=== PATIENT | male | born 1960 | race Two or more races ===

== ENCOUNTER 2017-02-15 09:25 | Inpatient (IN) | payer OTHER ==
[2017-02-15 09:46] VITALS: BMI 39.4
[2017-02-15] MEDS ORDERED: SODIUM CHLORIDE 0.9% 1000 ML INFUS.BAG IV ONE ×2 (10:28→13:40)
[2017-02-15] MEDS ORDERED: ACETAMINOPHEN 325 MG TABLET (FP) PO ONE (10:28)
[2017-02-15] MEDS ORDERED: VANCOMYCIN 1,250 MG in DEXTROSE 5%-WATER - 250 ML IVPB ONE ×2 (10:31→22:00)
[2017-02-15] MEDS ORDERED: PIPERACILLIN/TAZOB 3.375 GM 3.375 GM in DEXTROSE 5%-WATER - 50 ML IVPB ONE (10:41)
--- NOTE | 2017-02-15 10:43 | PDOC ---
History of Present Illness <Desiree Elena - Last Filed: 02/15/17 15:57> - General History Source: Patient Exam Limitations: Clinical Condition - History of Present Illness Initial Comments: 02/15/17 12:00 56yoM with pmh of DM2 s/p 5th digit amputation of left foot presents with fever 10/10 pain on left foot and edema for the past [address] Becerra who told him to seek tx 2 weeks ago. Modifying Factors: improves with: movement Associated Symptoms: reports: denies symptoms <Rolando Corey - Last Filed: 02/15/17 18:12> - General Chief Complaint: Wound Infection Stated Complaint: FOOT PROBLEM/gangrene Time Seen by Provider: 02/15/17 09:54 Past History <Desiree Elena - Last Filed: 02/15/17 15:57> - Travel Traveled outside of the country in the last 30 days: No - Past Medical History Anemia: No Asthma: No Cancer: No Cardiac Disorders: Yes CVA: No COPD: No CHF: No Dementia: No Diabetes: Yes (IDDM) GI Disorders: Yes (HX.ULCER) Disorders: No HTN: Yes Hypercholesterolemia: Yes Liver Disease: No Suicide Attempt (Hx): No Seizures: No Thyroid Disease: No - Surgical History Abdominal Surgery: Yes (LEFT INGUINAL HERNIA REPAIR) Appendectomy: No Cardiac Surgery: No Cholecystectomy: No Lung Surgery: No Neurologic Surgery: No Orthopedic Surgery: Yes (right foot surgery, left 5th ray resection) - Psycho/Social/Smoking Cessation Hx Suicidal Ideation: No Smoking History: Never smoked Have you smoked in the past 12 months: No If you are a former smoker, when did you quit?: 1976 Information on smoking cessation initiated: No Hx Alcohol Use: No Drug/Substance Use Hx: No Substance Use Type: None Hx Substance Use Treatment: No <Rolando Corey - Last Filed: 02/15/17 18:12> - Past Medical History Allergies/Adverse Reactions: Allergies Allergy/AdvReac Type Severity Reaction Status Date / Time No Known Allergies Allergy Verified 02/15/17 09:29 Home Medications: Ambulatory Orders Aspirin Coated [Ecotrin -] 81 mg PO DAILY #30 tablet.ec 04/25/16 Insulin (Levemir) [Levemir Vial] 30 units SQ AM 04/28/16 Amlodipine Besylate [Norvasc -] 5 mg PO DAILY 02/15/17 Esomeprazole Magnesium 40 mg PO BID 02/15/17 Hydrochlorothiazide [Hctz -] 25 mg PO BID 02/15/17 Metformin HCl [Glucophage -] 500 mg PO BID 02/15/17 Metoprolol Succinate [Toprol Xl -] 25 mg PO DAILY 02/15/17 *Physical Exam - Vital Signs Last Vital Signs Temp Pulse Resp BP Pulse Ox 100.5 F H 100 H 18 141/66 96 02/15/17 11:28 02/15/17 11:28 02/15/17 09:28 02/15/17 11:28 02/15/17 11:28 <Desiree Elena - Last Filed: 02/15/17 15:57> - Vital Signs Last Vital Signs Temp Pulse Resp BP Pulse Ox 101.3 F H 115 H 18 138/74 97 02/15/17 09:28 02/15/17 09:28 02/15/17 09:28 02/15/17 09:28 02/15/17 09:28 - Physical Exam General Appearance: Yes: Severe Distress, Obese Respiratory/Chest: positive: Lungs Clear Cardiovascular: positive: S1, S2, Tachycardia Vascular Pulses: Dorsalis-Pedis (R): 3+, Doralis-Pedis (L): 0 (impossible to asess due to edema) Gastrointestinal/Abdominal: positive: Soft, Distended Extremity: positive: Pedal Edema (Moist foot with black 4th toe, bloody wound, ulcer on sole), Swelling, Erythema, Inflammation, Other (Foul odor coming from wound) Integumentary: positive: Dry, Warm Neurologic: positive: Alert <Rolando Corey - Last Filed: 02/15/17 18:12> Procedures - Consent Consent obtained: Verbal - Additional Procedures Additional Procedures: other (Bedside arterial doppler of left foot) <Rolando Corey - Last Filed: 02/15/17 18:12> ED Treatment Course - LABORATORY CBC & Chemistry Diagram: 02/15/17 11:05 02/15/17 11:05 - ADDITIONAL ORDERS Additional order review: Laboratory Results 02/15/17 02/15/17 02/15/17 15:17 11:18 11:05 VBG pH 7.40 POC VBG pCO2 49.4 POC VBG pO2 23.3 L Mixed VBG HCO3 30.1 H Sodium Potassium Chloride Carbon Dioxide Anion Gap BUN Creatinine Creat Clearance w eGFR Random Glucose Lactic Acid 1.9 3.0 H* Calcium Total Bilirubin AST ALT Alkaline Phosphatase Creatine Kinase Troponin I Total Protein Albumin Blood Type Antibody Screen 02/15/17 02/15/17 11:05 10:26 VBG pH POC VBG pCO2 POC VBG pO2 Mixed VBG HCO3 Sodium 134 L Potassium 3.8 D Chloride 92 L Carbon Dioxide 32 Anion Gap 10 BUN 18 D Creatinine 1.0 D Creat Clearance w eGFR > 60 Random Glucose 144 H D Lactic Acid Calcium 8.5 Total Bilirubin 0.7 D AST 25 D ALT 22 D Alkaline Phosphatase 215 H D Creatine Kinase 112 Troponin I < 0.02 Total Protein 7.4 Albumin 2.4 L Blood Type O POSITIVE Antibody Screen Negative 02/15/17 11:05 RBC 3.80 L MCV 82.9 MCHC 27.1 RDW 14.3 MPV 8.3 Neutrophils % 86.0 H D Lymphocytes % 9.0 D Monocytes % 4.0 - RADIOLOGY Radiology Studies Ordered: Category Date Time Status CHEST X-RAY PORTABLE* [RAD] Stat Radiology 02/15/17 10:26 Completed - Medications Given in the ED: ED Medications Discontinued Medications Generic Name Dose Route Start Last Admin Trade Name Freq PRN Reason Stop Dose Admin Acetaminophen 650 mg 02/15/17 10:28 02/15/17 10:45 Tylenol - PO 02/15/17 10:29 650 mg ONCE ONE Administration Vancomycin HCl 1,250 mg/ 250 mls @ 250 mls/hr 02/15/17 10:31 02/15/17 11:35 Dextrose IVPB 02/15/17 11:30 Not Given ONCE ONE Protocol Piperacillin Sod/Tazobactam 50 mls @ 100 mls/hr 02/15/17 10:41 02/15/17 11:59 Sod 3.375 gm/ Dextrose IVPB 02/15/17 11:10 100 mls/hr ONCE ONE Administration Protocol Ketorolac Tromethamine 30 mg 02/15/17 14:27 02/15/17 14:35 Toradol Injection - IVPUSH 02/15/17 14:28 30 mg ONCE ONE Administration Morphine Sulfate 8 mg 02/15/17 11:33 02/15/17 11:47 Morphine Injection - IVPUSH 02/15/17 11:34 Not Given ONCE ONE Morphine Sulfate 4 mg 02/15/17 11:41 02/15/17 11:45 Morphine Injection - IVPUSH 02/15/17 11:42 4 mg ONCE ONE Administration Sodium Chloride 1,000 ml 02/15/17 10:28 02/15/17 11:30 Normal Saline - IV 02/15/17 10:29 1,000 ml ONCE ONE Administration Sodium Chloride 1,000 ml 02/15/17 13:40 02/15/17 13:47 Normal Saline - IV 02/15/17 13:41 1,000 ml ONCE ONE Administration Vancomycin HCl 1,000 mg 02/15/17 10:47 02/15/17 12:10 Vancomycin (Pre-Docked) IVPB 02/15/17 10:48 1,000 mg ONCE ONE Administration Protocol <Desiree Elena - Last Filed: 02/15/17 15:57> - LABORATORY CBC & Chemistry Diagram: 02/15/17 11:05 02/15/17 11:05 <Rolando Corey - Last Filed: 02/15/17 18:12> Medical Decision Making - Medical Decision Making 02/15/17 12:09 56yoM with pmh of DM2 s/p 5th digit amputation of left foot presents with fever 10/10 pain on left foot and pitting edema. Evaluated for cellulitis, osteomyelitis with xray, biopsy and cultures, placed on vanc-zosyn empirically, morphine for pain Left message with field research assistant of Dr. Oh on the phone inform pt condition and presence in ED. Lactate of 3 - sepsis confirmed. Bedside Doppler confirmed presence of dorsal pedis pulse. <Rolando Corey - Last Filed: 02/15/17 18:12> *DC/Admit/Observation/Transfer - Discharge Dispostion Admit: Yes <Desiree Elena - Last Filed: 02/15/17 15:57> <Rolando Corey - Last Filed: 02/15/17 18:12> Diagnosis at time of Disposition: Foot ulcer, Cellulitis - Referrals
[2017-02-15] MEDS ORDERED: VANCOMYCIN 1 GRAM (PRE-DOCKED) 1,000 MG/250 ML BAG IVPB ONE (10:47)
[2017-02-15] MEDS ORDERED: ACETAMINOPHEN 325 MG TABLET (FP) ONE (10:50)
[2017-02-15 11:33] LABS: VENOUS BLOOD GAS HCO3 30.1 meq/L (19-25); VENOUS PH 7.4 (7.32-7.42)
[2017-02-15] MEDS ORDERED: morphine CARPU-JECT 4 MG/1 ML DISP.SYRIN IVPUSH ONE ×3 (11:33→17:14)
[2017-02-15] MEDS ORDERED: morphine CARPU-JECT 4 MG/1 ML DISP.SYRIN ONE (11:41)
[2017-02-15] MEDS ORDERED: PIPERACILLIN/TAZOB 3.375 GM 50 ML IVPB ONE (11:42)
[2017-02-15] MEDS ORDERED: VANCOMYCIN 1 GRAM (PRE-DOCKED) 250 ML IVPB ONE (11:42)
[2017-02-15 11:46] LABS: MCH 27.1 pg (25.7-33.7); MCHC 32.6 g/dl (32.0-35.9); MEAN CELL VOLUME 82.9 fl (80-96); MEAN PLT VOLUME 8.3 fl (7.5-11.1); PLATELET COUNT 444 K/MM3 (134-434); RDW 14.3 % (11.9-15.9); WHITE BLOOD COUNT 17.6 K/mm3 (4.0-10.0)
[2017-02-15 12:12] LABS: ALBUMIN 2.4 g/dl (3.4-5.0); ANION GAP 10 (8-16); BILIRUBIN,TOTAL 0.7 mg/dL (0.2-1.0); CALCIUM 8.5 mg/dL (8.5-10.1); CO2 32 mmol/L (21-32); GLUCOSE,RANDOM 144 mg/dL (74-106); SGOT/AST 25 U/L (15-37); SGPT/ALT 22 U/L (12-78); TOT PROT 7.4 g/dl (6.4-8.2)
[2017-02-15 12:14] LABS: ALK PHOS 215 U/L (45-117); TROPONIN I < 0.02 ng/ml (0.00-0.05)
--- NOTE | 2017-02-15 12:40 | PDOC ---
Attending Attestation - Resident Resident Name: LeoraRolando - ED Attending Attestation I have performed the following: I have examined & evaluated the patient, The case was reviewed & discussed with the resident, I agree w/resident's findings & plan, Exceptions are as noted - HPI HPI: 02/15/17 12:39 56 yo HTN HLD h/o chronic foot wound, here with left foot infection. is not currently on abx. has been having worsening pain for last few weeks, now febrile. no n/v pain severe. does not drainage from foot,and discoloration to left foot toe. - Physicial Exam PE: 02/15/17 12:40 awake alert lungs clear heart rrr abd obese. NT ext wwp. left foot with severe erythema to red, left lateral dorsal foot with large skin ulceration, weeping, foul oder. left small toe with gangrenous tip partial amputatuion fourth toe dusky, . large purulence from betwen toe and dorsum of footweak DP pulses. foot warm. crepitus and purpulence, foot warm. nuero alert oriented. 02/15/17 16:12 - Medical Decision Making 02/15/17 12:41 56 yo male with large foot infection r/o osteo. sepsis or bacetermia. admit for iv abx. xray sepsis sun. 02/15/17 16:15 dr atkinson wound/ vasc paged, no clare returned. MRI ordered. iv abx given. dr atkinson repaged. 02/15/17 17:06 pt seen in ED by DR Atkinson, will take to OR for I &D, and admit for further surgery as needed. Heart Score/ECG Review #1 General ECG Interpretation: Sinus Rhythm, Normal Rate (108 sinus tachycardia.), Normal Intervals, No acute ischemic changes Compared to previous ECG there are: No significant change
[2017-02-15] MEDS ORDERED: KETOROLAC TROMETHAMINE 30 MG/1 ML VIAL IVPUSH ONE (14:27)
[2017-02-15] MEDS ORDERED: KETOROLAC TROMETHAMINE 30 MG/1 ML VIAL ONE ×2 (14:28→20:03)
[2017-02-15 14:37] LABS: PLATELET ESTIMATE ADEQUATE (NORMAL)
--- NOTE | 2017-02-15 15:44 | EKG ---
Test Reason : Blood Pressure : / mmHG Vent. Rate : 108 BPM Atrial Rate : 108 BPM P-R Int : 156 ms QRS Dur : 076 ms QT Int : 328 ms P-R-T Axes : 053 061 071 degrees QTc Int : 439 ms SINUS TACHYCARDIA WHEN COMPARED WITH ECG OF 17-APR-2016 15:27, NO SIGNIFICANT CHANGE WAS FOUND Confirmed by ELIANA ORDONEZ MD ([id number]) on 02/15/2017 3:44:44 PM Referred By: Confirmed By:ELIANA ORDONEZ MD
--- NOTE | 2017-02-15 16:28 | CONSULT ---
Consult Consult Specialty:: infectious diseases Referred by:: Reason for Consultation:: gangrene of the foot - History of Present Illness Chief Complaint: leg swelling and draiange History of Present Illness: 56 yo HTN HLD h/o chronic foot wound, here with left foot infection. According tot he patient this has been going on for more than 3 weeks and because he did not ahve any insurance he did not come to the hospital patient developed the infection when he was on vacation now the wound looked.This is a fouls smelling gangrenous wound which is draining paola pus patient also has swelling of the leg going upto the knee joint patient is a known diabetic patient seen with vascular--plan to take to the operating room to drain the abscess - History Source History Provided By: Patient Limitations to Obtaining History: No Limitations - Past Medical History [employer]RE[employer]ILDINGS [employer]ORATOR: Yes: Peripheral Neuropathy Cardio/Vascular: Yes: HTN, Hyperlipdemia Renal/: Yes: Renal Inusuff Infectious Disease: Yes: Other (LLE osteo on MRI here 06/2015) Endocrine: Yes: Diabetes Mellitus (on Victoza) - Past Surgical History Past Surgical History: Yes: Hernia Repair (left inguinal) - Alcohol/Substance Use Hx Alcohol Use: No History of Substance Use: reports: None - Smoking History Smoking history: Never smoked Have you smoked in the past 12 months: No If you are a former smoker, when did you quit?: 1976 - Social History ADL: Independent History of Recent Travel: No Home Medications - Allergies Allergies/Adverse Reactions: Allergies Allergy/AdvReac Type Severity Reaction Status Date / Time No Known Allergies Allergy Verified 02/15/17 09:29 - Home Medications Home Medications: Ambulatory Orders Aspirin Coated [Ecotrin -] 81 mg PO DAILY #30 tablet.ec 04/25/16 Insulin (Levemir) [Levemir Vial] 30 units SQ AM 04/28/16 Amlodipine Besylate [Norvasc -] 5 mg PO DAILY 02/15/17 Esomeprazole Magnesium 40 mg PO BID 02/15/17 Hydrochlorothiazide [Hctz -] 25 mg PO BID 02/15/17 Metformin HCl [Glucophage -] 500 mg PO BID 02/15/17 Metoprolol Succinate [Toprol Xl -] 25 mg PO DAILY 02/15/17 Review of Systems - Review of Systems Constitutional: reports: No Symptoms Eyes: reports: No Symptoms HENT: reports: No Symptoms Neck: reports: No Symptoms Cardiovascular: reports: No Symptoms Respiratory: reports: No Symptoms Gastrointestinal: reports: No Symptoms Genitourinary: reports: No Symptoms Musculoskeletal: reports: Extremity Pain, Muscle Pain, Other Integumentary: reports: Blister, Erythema, Wound (necrotic) Neurological: reports: No Symptoms Endocrine: reports: No Symptoms Hematology/Lymphatic: reports: No Symptoms Psychiatric: reports: No Symptoms Physical Exam Vital Signs: Vital Signs Temperature 100.5 F H 02/15/17 11:28 Pulse Rate 100 H 02/15/17 11:28 Respiratory Rate 18 02/15/17 09:28 Blood Pressure 141/66 02/15/17 11:28 O2 Sat by Pulse Oximetry (%) 96 02/15/17 11:28 Constitutional: Yes: Calm, Moderate Distress, Obese Eyes: Yes: Conjunctiva Clear HENT: Yes: Atraumatic Neck: Yes: Supple Cardiovascular: Yes: Regular Rate and Rhythm Respiratory: Yes: Regular, CTA Bilaterally Gastrointestinal: Yes: Normal Bowel Sounds, Soft Musculoskeletal: Yes: Other Extremities: Yes: Other Integumentary: Yes: Erythema, Other (blisters) Wound/Incision: Yes: Other (left foot with severe erythema to red, left lateral dorsal foot with large skin ulceration, weeping, foul oder. left small toe with gangrenous tip partial amputatuion fourth toe dusky, . large purulence from betwen toe and dorsum of footweak DP pulses. foot warm. crepitus and purpulence, foot warm.) Neurological: Yes: Alert, Oriented Psychiatric: Yes: Alert, Oriented Imaging - Results Chest X-ray: Report Reviewed, Image Reviewed Assessment/Plan after looking at the wound and the condition of the leg there is worry about gas gangrene though there is open tract patient will be going to the or also i ahve no doubt that the patient has osteo' since patient is going to the or on urgent basis we will do imaging studies later on i am going to start patient on abx osteo of the left foot abscess left foot cellulittis left foot gangrene left 5th toe plan will stat on clinda zosyn and vanco await for cx report rest as per surgery a
[2017-02-15] MEDS ORDERED: CLINDAMYCIN 600MG PREMIX IVPB 50 ML IVPB SCH (16:30)
[2017-02-15] MEDS ORDERED: morphine CARPU-JECT 2 MG/1 ML DISP.SYRIN ONE (16:31)
[2017-02-15 16:33] LABS: URINE APPEARANCE CLEAR; URINE BILIRUBIN NEGATIVE (NEGATIVE); URINE BLOOD 1+ (NEGATIVE); URINE COLOR YELLOW; URINE GLUCOSE (UA) 3+ (NEGATIVE); URINE KETONE NEGATIVE (NEGATIVE); URINE LEUK ESTERASE NEGATIVE (NEGATIVE); URINE NITRITE NEGATIVE (NEGATIVE); URINE PROTEIN 1+ (NEGATIVE); URINE UROBILINOGEN 2.0 E.U/dl E.U./dl (0.2-1.0)
[2017-02-15 16:35] LABS: URINE RBC 17 /hpf (0-3); URINE WBC 6 /hpf (3-5)
[2017-02-15] MEDS ORDERED: CLINDAMYCIN 600MG PREMIX IVPB 50 ML IVPB ONE (16:49)
--- NOTE | 2017-02-15 17:05 | PN ---
Progress Note (short form) - Note Progress Note: Vascular Surgery Pt seen and examined. Pt recently on vacation, and now with infection in left foot. Will need drainage of foot today WBC 17 Arsh López DO
[2017-02-15] MEDS ORDERED: PIPERACILLIN/TAZOB 4.5 GM 4.5 GM in DEXTROSE 5%-WATER - 100 ML IVPB SCH (18:00)
[2017-02-15] MEDS ORDERED: PROPOFOL 20 ML ONE (19:23)
[2017-02-15] MEDS ORDERED: MIDAZOLAM HCL 2 MG/2 ML SINGLE DOSE VIAL ONE (19:24)
[2017-02-15] MEDS ORDERED: LIDOCAINE HCL/PF 2% SDV 5ML VIAL ONE (19:32)
[2017-02-15] MEDS ORDERED: DEXAMETHASONE SOD PHOSPHATE 4 MG/1 ML VIAL ONE (19:42)
--- NOTE | 2017-02-15 20:29 | OP ---
Operative Note - Note: Operative Date: 02/15/17 Pre-Operative Diagnosis: Infected Left foot Operation: Inscion & Drainge with debridement of necrotic soft tissue and bone Findings: Necrotic soft tissue and bone with foul dishwater drainage with mal odor Post-Operative Diagnosis: Same as Pre-op Surgeon: Gal Chew Anesthesiologist/HEATER OPERATOR HELPER: Spenser Farris Anesthesia: General Specimens Removed: Necrotic bone and soft tissue Estimated Blood Loss (mls): 50 Operative Report Dictated: Yes
--- NOTE | 2017-02-15 20:32 | PN ---
Progress Note (short form) - Note Progress Note: Pre OP Patietn went on vacation stated his foot got infected but due to no insurance he waited 3 weeks before seeking treatment A/A/O x 3 in NAD Left foot: Swollen mal odorous with sub q emphysema, + pain with guarded ROM Vital Signs Period Temp Pulse Resp BP Sys/Mclaughlin Pulse Ox Last 24 Hr 100.5 F-101.6 F 100-117 18-22 138-157/63-91 96-99 Abnormal Lab Results 02/15/17 02/15/17 02/15/17 11:05 11:05 11:05 WBC 17.6 H D RBC 3.80 L Hgb 10.3 L Hct 31.5 L Plt Count 444 H D Neutrophils % 86.0 H D POC VBG pO2 Mixed VBG HCO3 Sodium 134 L Chloride 92 L Random Glucose 144 H D Lactic Acid 3.0 H* Alkaline Phosphatase 215 H D Albumin 2.4 L Urine Protein Urine Glucose (UA) Urine Blood 02/15/17 02/15/17 11:18 16:00 WBC RBC Hgb Hct Plt Count Neutrophils % POC VBG pO2 23.3 L Mixed VBG HCO3 30.1 H Sodium Chloride Random Glucose Lactic Acid Alkaline Phosphatase Albumin Urine Protein 1+ H Urine Glucose (UA) 3+ H Urine Blood 1+ H Current Medications Generic Name Dose Route Start Last Admin Trade Name Charanjit PRN Reason Stop Dose Admin Clindamycin Phosphate 50 mls @ 100 mls/hr 02/15/17 16:30 02/15/17 16:54 Cleocin 600 Mg Premix Ivpb - IVPB 100 mls/hr Q6H-IV [facility] Administration Vancomycin HCl 1,250 mg/ 250 mls @ 166.667 mls/hr 02/15/17 22:00 Dextrose IVPB BID [facility] Protocol Piperacillin Sod/Tazobactam 100 mls @ 200 mls/hr 02/15/17 18:00 02/15/17 18:18 Sod 4.5 gm/ Dextrose IVPB 200 mls/hr Q8H-IV [facility] Administration Protocol Patietn to the OR for I&D and to open foot Risks explained to the patietn including but not limited loss of toes foot and leg after all questions answered to his satisfaction consent obtained
[2017-02-15] MEDS ORDERED: ACETAMINOPHEN 1000 MG/100 ML VIAL (NON FORMULARY) IVPB ONE (20:33)
[2017-02-15] MEDS ORDERED: ACETAMINOPHEN INJECTION 100 ML IVPB ONE (20:33)
--- NOTE | 2017-02-15 20:34 | PN ---
Progress Note (short form) - Note Progress Note: Patient underwent extensive debridement of soft tissue and bone secondary to infection and necrosis Transferred to PACU with VSS in NAD Deep tisssue and Bone Cultures taken and sent to Microbilogy Remainig specimens sent to Pathology Will follow Will change dressing in 48 hours, maintain until then
[2017-02-15] MEDS ORDERED: VANCOMYCIN 1,250 MG in DEXTROSE 5%-WATER - 250 ML IVPB SCH (22:00)
[2017-02-15] MEDS: CLINDAMYCIN 600MG PREMIX IVPB 50 ML IVPB SCH (22:26)
[2017-02-16] MEDS: VANCOMYCIN 1,250 MG in DEXTROSE 5%-WATER - 250 ML IVPB SCH ×3 (00:32→21:46)
[2017-02-16] MEDS ORDERED: PIPERACILLIN/TAZOB 4.5 GM 100 ML IVPB ONE (02:00)
[2017-02-16] MEDS ORDERED: PIPERACILLIN/TAZOB 4.5 GM 100 ML IVPB SCH (02:00)
[2017-02-16] MEDS: PIPERACILLIN/TAZOB 4.5 GM 100 ML IVPB SCH ×3 (02:36→18:03)
[2017-02-16] MEDS: CLINDAMYCIN 600MG PREMIX IVPB 50 ML IVPB SCH ×2 (02:36→08:57)
[2017-02-16] MEDS: INSULIN DETEMIR 100 UNITS/ML MDV SQ SCH (06:40)
[2017-02-16] MEDS: metFORMIN HCL 500 MG TABLET (FP) PO SCH ×2 (06:40→17:55)
[2017-02-16] MEDS: INSULIN SLIDING SCALE (NOVOLOG) 1 VIAL SQ SCH ×4 (06:43→21:45)
--- NOTE | 2017-02-16 06:47 | OP ---
DATE OF OPERATION: 02/15/2017 SURGEON: Scarlet Richter DPM PREOPERATIVE DIAGNOSIS: Infected left foot with possible necrotizing fasciitis. POSTOPERATIVE DIAGNOSIS: Infected left foot with possible necrotizing fasciitis. NAME OF OPERATION: Incision and drainage with debridement of infected and necrotic bone and soft tissue, all deep. ANESTHESIA: General anesthesia via LMA. FINDINGS: Necrotic soft tissue and bone with foul-smelling dishwater-brown discharge. WOUND CLASSIFICATION: Dirty. ESTIMATED BLOOD LOSS: 50 mL. SPECIMENS REMOVED: Necrotic bone and soft tissue. DRAINS: There were no drains. MATERIALS: None. COMPLICATIONS: None. INDICATIONS FOR THE PROCEDURE: The patient is a pleasant 56-year-old male who presented to [facility] this evening complaining of pain, swelling, and malodor to his left foot. He states that this has been going on for 3 weeks and getting progressively worse. He just sought treatment recently because he had no insurance prior. Patient states he has been febrile over the past several days. The patient was explained that he needed to have an incision and drainage and debridement this evening. Risks, including, but not limited to, loss of toe, loss of foot, and loss of leg, were explained to the patient. After he demonstrated verbal understanding, consent was obtained. The surgical site was then confirmed with the patient and marked with my initials. DESCRIPTION OF THE PROCEDURE: Patient was brought to the operating room and placed on the operating room table in the supine position in a good anatomic alignment with all bony prominences padded well. Timeout was called, confirming the identity of the patient, the nature of the procedure, and the extremity to be operated on. Once confirmed, an LMA was passed by the anesthesiologist and the patient was anesthetized. The left foot was then prepped and draped in the usual sterile manner. Attention was then directed to the lateral aspect of the left foot where starting from the dorsolateral aspect continuing through the interspace all the way down to the plantar lateral aspect an incision was made. The incision was deepened via sharp and blunt dissection. At this time, it should be noted that there was necrotic soft tissue and bone with a very foul-smelling odor and brown sewerage-water discharge. Utilizing sharp and blunt dissection, all nonviable tissue that was visible was excised in toto, including the bone. Deep tissue cultures as well as bone cultures were sent to Microbiology for both culture and sensitivity. The remaining specimens were sent to Pathology for both gross and microscopic examination. The surgical site was then flushed with 3000 mL of a 1/3 mixture of Betadine, peroxide, and normal saline. The area was then packed with the same solution. The area was then dressed with all sterile gauze, ABD pads, Kerlix, and Kali. Patient was transported to the postanesthesia care unit with vital signs stable and in no apparent distress. Prior to applying the bandage, the instrument count as well as the sponge count was noted to be within normal limits and correct. Hemostasis was under control via direct pressure. Patient will be admitted into the hospital for IV antibiotics and ID consult. Vascular consult was already performed and appreciated. SCARLET RICHTER DPM [id number]
[2017-02-16 07:37] LABS: MCH 26.8 pg (25.7-33.7); MCHC 32.4 g/dl (32.0-35.9); MEAN CELL VOLUME 82.8 fl (80-96); MEAN PLT VOLUME 8.6 fl (7.5-11.1); PLATELET COUNT 405 K/MM3 (134-434); RDW 14.3 % (11.9-15.9)
[2017-02-16 08:22] LABS: ALBUMIN 1.6 g/dl (3.4-5.0); ANION GAP 13 (8-16); CALCIUM 7.6 mg/dL (8.5-10.1); CO2 28 mmol/L (21-32); GLUCOSE,RANDOM 286 mg/dL (74-106); SGOT/AST 19 U/L (15-37); SGPT/ALT 15 U/L (12-78)
[2017-02-16 08:26] LABS: ALK PHOS 151 U/L (45-117); BILIRUBIN,TOTAL 0.7 mg/dL (0.2-1.0); TOT PROT 5.4 g/dl (6.4-8.2)
[2017-02-16] MEDS: oxyCODONE HCL 5 MG TABLET PO PRN ×2 (08:56→21:46)
[2017-02-16] MEDS: ACETAMINOPHEN 325 MG TABLET (FP) PO PRN ×2 (08:57→21:47)
[2017-02-16] MEDS: HEPARIN NA (PORCINE) 5,000 UNITS/ML 1ML VIAL SQ SCH ×2 (09:10→21:45)
[2017-02-16] MEDS: ASPIRIN COATED 81 MG TABLET.EC PO SCH (09:10)
[2017-02-16] MEDS: HYDROCHLOROTHIAZIDE 25 MG TABLET (FP) PO SCH ×2 (09:11→21:45)
[2017-02-16] MEDS: METOPROLOL SUCCINATE 25 MG TAB.SR.24H (FP) PO SCH (09:11)
[2017-02-16] MEDS: amLODIPine BESYLATE 5 MG TABLET (FP) PO SCH (09:11)
--- NOTE | 2017-02-16 11:51 | PN ---
Progress Note, Physician History of Present Illness: post op from inscion and drainage of the foot operative note noted patient has no complaints this morning wound has dressing still foul smell present - Current Medication List Current Medications: Active Medications Acetaminophen (Tylenol -) 325 mg PO Q6H PRN PRN Reason: PAIN Last Admin: 02/16/17 08:57 Dose: 325 mg Amlodipine Besylate (Norvasc -) 5 mg PO DAILY [facility] Last Admin: 02/16/17 09:11 Dose: 5 mg Aspirin (Ecotrin -) 81 mg PO DAILY [facility] Last Admin: 02/16/17 09:10 Dose: 81 mg Heparin Sodium (Porcine) (Heparin -) 5,000 unit SQ BID [facility] Last Admin: 02/16/17 09:10 Dose: 5,000 unit Hydrochlorothiazide (Hctz -) 25 mg PO BID [facility] Last Admin: 02/16/17 09:11 Dose: 25 mg Clindamycin Phosphate (Cleocin 600 Mg Premix Ivpb -) 50 mls @ 100 mls/hr IVPB Q6H-IV [facility] Last Admin: 02/16/17 08:57 Dose: 100 mls/hr Vancomycin HCl 1,250 mg/ (Dextrose) 250 mls @ 166.667 mls/hr IVPB BID [facility] PRN Reason: Protocol Last Admin: 02/16/17 00:32 Dose: 166.667 mls/hr Piperacillin Sod/Tazobactam Sod (Zosyn 4.5gm Ivpb (Pre-Docked)) 100 mls @ 200 mls/hr IVPB Q8H-IV [facility] PRN Reason: Protocol Last Admin: 02/16/17 09:11 Dose: 200 mls/hr Insulin Aspart (Novolog Vial Sliding Scale -) 1 vial SQ ACHS [facility] PRN Reason: Protocol Last Admin: 02/16/17 06:43 Dose: 8 units Insulin Detemir (Levemir Vial) 30 units SQ AM [facility] Last Admin: 02/16/17 06:40 Dose: 30 units Metformin HCl (Glucophage -) 500 mg PO BIDI [facility] Last Admin: 02/16/17 06:40 Dose: 500 mg Metoprolol Succinate (Toprol Xl -) 25 mg PO DAILY [facility] Last Admin: 02/16/17 09:11 Dose: 25 mg Oxycodone HCl (Roxicodone -) 5 mg PO Q6H PRN PRN Reason: PAIN Last Admin: 02/16/17 08:56 Dose: 5 mg - Objective Vital Signs: Vital Signs Temperature 98.5 F 02/16/17 10:00 Pulse Rate 92 H 02/16/17 10:00 Respiratory Rate 18 02/16/17 10:00 Blood Pressure 114/66 02/16/17 10:00 O2 Sat by Pulse Oximetry (%) 96 02/15/17 22:00 Constitutional: Yes: No Distress, Calm, Obese Cardiovascular: Yes: Regular Rate and Rhythm Respiratory: Yes: Regular, CTA Bilaterally Gastrointestinal: Yes: Normal Bowel Sounds, Soft Musculoskeletal: Yes: Other Extremities: Yes: Other Wound/Incision: Yes: Dressing Dry and Intact, Other (foul smell) Neurological: Yes: Alert, Oriented Psychiatric: Yes: Alert, Oriented Labs: CBC, BMP 02/16/17 06:35 02/16/17 06:30 Assessment/Plan after looking at the wound and the condition of the leg there is worry about gas gangrene though there is open tract patient will be going to the or also i ahve no doubt that the patient has osteo' since patient is going to the or on urgent basis we will do imaging studies later on i am going to start patient on abx osteo of the left foot abscess left foot cellulittis left foot gangrene left 5th toe plan continue abx pham top clinda await for cx report rest as per surgery a
[2017-02-16 14:15] LABS: PLATELET ESTIMATE ADEQUATE (NORMAL)
--- NOTE | 2017-02-16 21:16 | PN ---
Progress Note, Physician History of Present Illness: This was entered in error See H&P - Current Medication List Current Medications: Active Medications Acetaminophen (Tylenol -) 325 mg PO Q6H PRN PRN Reason: PAIN Last Admin: 02/16/17 08:57 Dose: 325 mg Amlodipine Besylate (Norvasc -) 5 mg PO DAILY [facility] Last Admin: 02/16/17 09:11 Dose: 5 mg Aspirin (Ecotrin -) 81 mg PO DAILY [facility] Last Admin: 02/16/17 09:10 Dose: 81 mg Heparin Sodium (Porcine) (Heparin -) 5,000 unit SQ BID [facility] Last Admin: 02/16/17 09:10 Dose: 5,000 unit Hydrochlorothiazide (Hctz -) 25 mg PO BID [facility] Last Admin: 02/16/17 09:11 Dose: 25 mg Vancomycin HCl 1,250 mg/ (Dextrose) 250 mls @ 166.667 mls/hr IVPB BID [facility] PRN Reason: Protocol Last Admin: 02/16/17 13:04 Dose: 166.667 mls/hr Piperacillin Sod/Tazobactam Sod (Zosyn 4.5gm Ivpb (Pre-Docked)) 100 mls @ 200 mls/hr IVPB Q8H-IV [facility] PRN Reason: Protocol Last Admin: 02/16/17 18:03 Dose: 200 mls/hr Insulin Aspart (Novolog Vial Sliding Scale -) 1 vial SQ ACHS [facility] PRN Reason: Protocol Last Admin: 02/16/17 17:55 Dose: 6 units Insulin Detemir (Levemir Vial) 30 units SQ AM [facility] Last Admin: 02/16/17 06:40 Dose: 30 units Metformin HCl (Glucophage -) 500 mg PO BIDI [facility] Last Admin: 02/16/17 17:55 Dose: 500 mg Metoprolol Succinate (Toprol Xl -) 25 mg PO DAILY [facility] Last Admin: 02/16/17 09:11 Dose: 25 mg Oxycodone HCl (Roxicodone -) 5 mg PO Q6H PRN PRN Reason: PAIN Last Admin: 02/16/17 08:56 Dose: 5 mg - Objective Vital Signs: Vital Signs Temperature 98.8 F 02/16/17 18:00 Pulse Rate 93 H 02/16/17 18:00 Respiratory Rate 16 02/16/17 18:00 Blood Pressure 117/62 02/16/17 18:00 O2 Sat by Pulse Oximetry (%) 98 02/16/17 20:30 Labs: CBC, BMP 02/16/17 06:35 02/16/17 06:30
[2017-02-17] MEDS: PIPERACILLIN/TAZOB 4.5 GM 100 ML IVPB SCH ×3 (01:07→17:38)
[2017-02-17] MEDS: metFORMIN HCL 500 MG TABLET (FP) PO SCH ×2 (06:20→17:31)
[2017-02-17] MEDS: INSULIN DETEMIR 100 UNITS/ML MDV SQ SCH (06:20)
[2017-02-17] MEDS: INSULIN SLIDING SCALE (NOVOLOG) 1 VIAL SQ SCH ×4 (06:21→22:12)
[2017-02-17] MEDS ORDERED: PT OWN MED DRAWER 7, Y5N ONE (09:26)
[2017-02-17] MEDS: VANCOMYCIN 1,250 MG in DEXTROSE 5%-WATER - 250 ML IVPB SCH ×2 (10:08→22:13)
[2017-02-17] MEDS: HYDROCHLOROTHIAZIDE 25 MG TABLET (FP) PO SCH ×2 (10:11→22:11)
[2017-02-17] MEDS: oxyCODONE HCL 5 MG TABLET PO PRN ×3 (10:12→23:24)
[2017-02-17] MEDS: ASPIRIN COATED 81 MG TABLET.EC PO SCH (10:12)
[2017-02-17] MEDS: METOPROLOL SUCCINATE 25 MG TAB.SR.24H (FP) PO SCH (10:12)
[2017-02-17] MEDS: HEPARIN NA (PORCINE) 5,000 UNITS/ML 1ML VIAL SQ SCH ×2 (10:12→22:11)
[2017-02-17] MEDS: amLODIPine BESYLATE 5 MG TABLET (FP) PO SCH (10:12)
[2017-02-17] MEDS: ACETAMINOPHEN 325 MG TABLET (FP) PO PRN ×3 (10:13→23:27)
--- NOTE | 2017-02-17 16:09 | HP ---
Admitting History and Physical - Admission Chief Complaint: Pt was seen and examined on 02/16/17 however H&P was not saved correctly History of Present Illness: Pt is 56 y/o male w/ PMH significant for HTN, HLD, and diabetes who has a h/o chronic foot wound. Pt also has had partial amputation lt 4th toe.According to the patient this has been going on for more than 3 weeks and because he did not have any insurance he did not come to the hospital. The patient developed the infection when he was on vacation. There is a foul smelling gangrenous wound which is draining paola pus and also has swelling of the leg going up to the knee. Pt denies any fever/chills. In the ER pt found to have WBC of 17,000 and xray of lt foot showed soft tissue air. History Source: Patient, Medical Record - Past Medical History DISMANTLER: Yes: Peripheral Neuropathy Cardiovascular: Yes: HTN, Hyperlipdemia Renal/: Yes: Renal Inusuff Infectious Disease: Yes: Other (LLE osteo on MRI here 06/2015) Endocrine: Yes: Diabetes Mellitus (on Victoza) - Past Surgical History Past Surgical History: Yes: Hernia Repair (left inguinal) - Smoking History Smoking history: Never smoked Have you smoked in the past 12 months: No If you are a former smoker, when did you quit?: 1976 - Alcohol/Substance Use Hx Alcohol Use: No History of Substance Use: reports: None - Social History ADL: Independent History of Recent Travel: No Home Medications - Allergies Allergies/Adverse Reactions: Allergies Allergy/AdvReac Type Severity Reaction Status Date / Time No Known Allergies Allergy Verified 02/15/17 09:29 - Home Medications Home Medications: Ambulatory Orders Aspirin Coated [Ecotrin -] 81 mg PO DAILY #30 tablet.ec 04/25/16 Insulin (Levemir) [Levemir Vial] 30 units SQ AM 04/28/16 Amlodipine Besylate [Norvasc -] 5 mg PO DAILY 02/15/17 Esomeprazole Magnesium 40 mg PO BID 02/15/17 Hydrochlorothiazide [Hctz -] 25 mg PO BID 02/15/17 Metformin HCl [Glucophage -] 500 mg PO BID 02/15/17 Metoprolol Succinate [Toprol Xl -] 25 mg PO DAILY 02/15/17 Family Disease History - Family Disease History Family History: Unremarkable Review of Systems - Review of Systems Constitutional: reports: No Symptoms HENT: reports: No Symptoms Neck: reports: No Symptoms Cardiovascular: reports: No Symptoms Respiratory: reports: No Symptoms Gastrointestinal: reports: No Symptoms Musculoskeletal: reports: Other ((+) pain lt foot) Physical Examination Vital Signs: Vital Signs Temperature 99.5 F 02/17/17 14:44 Pulse Rate 97 H 02/17/17 14:44 Respiratory Rate 20 02/17/17 14:44 Blood Pressure 119/59 02/17/17 14:44 O2 Sat by Pulse Oximetry (%) 98 02/17/17 09:00 Constitutional: Yes: Well Nourished HENT: Yes: WNL Neck: Yes: WNL, Supple Cardiovascular: Yes: WNL, Regular Rate and Rhythm Respiratory: Yes: WNL, Regular, CTA Bilaterally Gastrointestinal: Yes: WNL, Normal Bowel Sounds, Soft Extremities: Yes: Other (Lt foot in dressing s/p I&D lt foot) Edema: No Neurological: Yes: WNL, Alert, Oriented ...Motor Strength: WNL Labs: CBC, BMP 02/16/17 06:35 02/16/17 06:30 Problem List - Problems (1) Foot ulcer Assessment/Plan: cellulitis/abscess/osteo/fascitis S/P I&D lt foot Check MRI foot Cont IV antibxs Follow cultures Code(s): L97.509 - NON-PRESSURE CHRONIC ULCER OTH PRT UNSP FOOT W UNSP SEVERITY (2) Diabetes Code(s): E11.9 - TYPE 2 DIABETES MELLITUS WITHOUT COMPLICATIONS Qualifiers: Diabetes mellitus type: other specified (including LASHAY) Diabetes mellitus complication status: with hyperglycemia Diabetes mellitus chcf insulin use: unspecified termination clerk insulin use status Qualified Code (s): E13.65 - Other specified diabetes mellitus with hyperglycemia (3) HTN (hypertension) Code(s): I10 - ESSENTIAL (PRIMARY) HYPERTENSION (4) Morbid obesity Code(s): E66.01 - MORBID (SEVERE) OBESITY DUE TO EXCESS CALORIES
--- NOTE | 2017-02-17 16:09 | PN ---
Progress Note, Physician History of Present Illness: Pt having pain in lt foot - Current Medication List Current Medications: Active Medications Acetaminophen (Tylenol -) 325 mg PO Q6H PRN PRN Reason: PAIN Last Admin: 02/17/17 10:13 Dose: 325 mg Amlodipine Besylate (Norvasc -) 5 mg PO DAILY [facility] Last Admin: 02/17/17 10:12 Dose: 5 mg Aspirin (Ecotrin -) 81 mg PO DAILY [facility] Last Admin: 02/17/17 10:12 Dose: 81 mg Heparin Sodium (Porcine) (Heparin -) 5,000 unit SQ BID [facility] Last Admin: 02/17/17 10:12 Dose: 5,000 unit Hydrochlorothiazide (Hctz -) 25 mg PO BID [facility] Last Admin: 02/17/17 10:11 Dose: 25 mg Vancomycin HCl 1,250 mg/ (Dextrose) 250 mls @ 166.667 mls/hr IVPB BID [facility] PRN Reason: Protocol Last Admin: 02/17/17 10:08 Dose: 166.667 mls/hr Piperacillin Sod/Tazobactam Sod (Zosyn 4.5gm Ivpb (Pre-Docked)) 100 mls @ 200 mls/hr IVPB Q8H-IV [facility] PRN Reason: Protocol Last Admin: 02/17/17 11:49 Dose: 200 mls/hr Insulin Aspart (Novolog Vial Sliding Scale -) 1 vial SQ ACHS [facility] PRN Reason: Protocol Last Admin: 02/17/17 11:51 Dose: 6 units Insulin Detemir (Levemir Vial) 30 units SQ AM [facility] Last Admin: 02/17/17 06:20 Dose: 30 units Metformin HCl (Glucophage -) 500 mg PO BIDI [facility] Last Admin: 02/17/17 06:20 Dose: 500 mg Metoprolol Succinate (Toprol Xl -) 25 mg PO DAILY [facility] Last Admin: 02/17/17 10:12 Dose: 25 mg Oxycodone HCl (Roxicodone -) 5 mg PO Q6H PRN PRN Reason: PAIN Last Admin: 02/17/17 10:12 Dose: 5 mg - Objective Vital Signs: Vital Signs Temperature 99.5 F 02/17/17 14:44 Pulse Rate 97 H 02/17/17 14:44 Respiratory Rate 20 02/17/17 14:44 Blood Pressure 119/59 02/17/17 14:44 O2 Sat by Pulse Oximetry (%) 98 02/17/17 09:00 Constitutional: Yes: Well Nourished HENT: Yes: WNL Neck: Yes: WNL, Supple Cardiovascular: Yes: WNL, Regular Rate and Rhythm Respiratory: Yes: WNL, Regular, CTA Bilaterally Gastrointestinal: Yes: WNL, Normal Bowel Sounds, Soft, Abdomen, Obese Extremities: Yes: Other ((+) lt foot in dressxing w/ surrounding erythema) Labs: CBC, BMP 02/16/17 06:35 02/16/17 06:30 Problem List - Problems (1) Foot ulcer Assessment/Plan: cellulitis/abscess/osteo/fascitis/gangrene S/P I&D lt foot MRI foot showes Cont IV zosyn/vanco Follow cultures Code(s): L97.509 - NON-PRESSURE CHRONIC ULCER OTH PRT UNSP FOOT W UNSP SEVERITY (2) Diabetes Assessment/Plan: Glucose uncontrolled Cont metformin/levemir/sliding scale w/ coverage Endo consult Check HgA1c Code(s): E11.9 - TYPE 2 DIABETES MELLITUS WITHOUT COMPLICATIONS Qualifiers: Diabetes mellitus type: other specified (including LASHAY) Diabetes mellitus complication status: with hyperglycemia Diabetes mellitus terminal make up operator insulin use: unspecified fci insulin use status Qualified Code (s): E13.65 - Other specified diabetes mellitus with hyperglycemia (3) HTN (hypertension) Assessment/Plan: BP stable Cont norvasc/toprol/asa/hctz Code(s): I10 - ESSENTIAL (PRIMARY) HYPERTENSION (4) Morbid obesity Code(s): E66.01 - MORBID (SEVERE) OBESITY DUE TO EXCESS CALORIES
[2017-02-17] MEDS ORDERED: INSULIN (NOVOLOG) ASPART 100 UNITS/ML 10ML VIAL ONE (21:33)
[2017-02-17] MEDS ORDERED: INSULIN DETEMIR 100 UNITS/ML MDV SQ ONE (21:33)
[2017-02-18] MEDS: PIPERACILLIN/TAZOB 4.5 GM 100 ML IVPB SCH ×3 (01:20→17:05)
[2017-02-18] MEDS: INSULIN DETEMIR 100 UNITS/ML MDV SQ SCH (06:08)
[2017-02-18] MEDS: metFORMIN HCL 500 MG TABLET (FP) PO SCH ×2 (06:08→17:11)
[2017-02-18] MEDS: INSULIN SLIDING SCALE (NOVOLOG) 1 VIAL SQ SCH ×4 (06:11→22:22)
[2017-02-18] MEDS ORDERED: INSULIN DETEMIR 100 UNITS/ML MDV SQ ONE (06:54)
[2017-02-18 08:23] LABS: BASOPHIL 0.7 % (0-2.0); EOSINOPHIL 0.2 % (0-4.5); MCH 27.2 pg (25.7-33.7); MCHC 32.8 g/dl (32.0-35.9); MEAN CELL VOLUME 82.9 fl (80-96); MEAN PLT VOLUME 8.2 fl (7.5-11.1); NEUTROPHILS 83.1 % (42.8-82.8); PLATELET COUNT 543 K/MM3 (134-434); RDW 14.6 % (11.9-15.9); WHITE BLOOD COUNT 18.6 K/mm3 (4.0-10.0)
[2017-02-18 08:39] LABS: ALBUMIN 1.7 g/dl (3.4-5.0); ANION GAP 7 (8-16); CALCIUM 7.8 mg/dL (8.5-10.1); CO2 31 mmol/L (21-32); GLUCOSE,RANDOM 159 mg/dL (74-106)
[2017-02-18 08:43] LABS: ALK PHOS 131 U/L (45-117); BILIRUBIN,TOTAL 0.3 mg/dL (0.2-1.0); CREATININE 0.8 mg/dL (0.7-1.3); SGOT/AST 17 U/L (15-37); SGPT/ALT 15 U/L (12-78); TOT PROT 6.1 g/dl (6.4-8.2)
[2017-02-18] MEDS: oxyCODONE HCL 5 MG TABLET PO PRN ×3 (09:40→23:35)
[2017-02-18] MEDS: ACETAMINOPHEN 325 MG TABLET (FP) PO PRN ×3 (09:40→23:33)
[2017-02-18] MEDS: HYDROCHLOROTHIAZIDE 25 MG TABLET (FP) PO SCH ×2 (09:52→22:23)
[2017-02-18] MEDS: METOPROLOL SUCCINATE 25 MG TAB.SR.24H (FP) PO SCH (09:52)
[2017-02-18] MEDS: amLODIPine BESYLATE 5 MG TABLET (FP) PO SCH (09:52)
[2017-02-18] MEDS: VANCOMYCIN 1,250 MG in DEXTROSE 5%-WATER - 250 ML IVPB SCH (09:53)
[2017-02-18] MEDS: ASPIRIN COATED 81 MG TABLET.EC PO SCH (09:53)
[2017-02-18] MEDS: HEPARIN NA (PORCINE) 5,000 UNITS/ML 1ML VIAL SQ SCH ×2 (09:53→22:23)
--- NOTE | 2017-02-18 11:32 | PN ---
Progress Note (short form) - Note Progress Note: Podiatry Post Op Day 3 Patient seen at bedside has no complaints Left foot: Dressing removed, sx site mixed necrotic fibrotic tissue, no drainage noted. Apply betadine dressing Patietn will need to go to the OR for further debridement on Saturday Prognosis is poor, patient might need a BKA Will follow
[2017-02-18] MEDS ORDERED: INSULIN (NOVOLOG) ASPART 100 UNITS/ML 10ML VIAL ONE ×2 (11:37→22:58)
--- NOTE | 2017-02-18 17:36 | PN ---
Progress Note, Physician History of Present Illness: patient foot in dressing running low grade temp and last night spiked patients wbc is going up mri shows osteo - Current Medication List Current Medications: Active Medications Acetaminophen (Tylenol -) 325 mg PO Q6H PRN PRN Reason: PAIN Last Admin: 02/18/17 17:10 Dose: 325 mg Amlodipine Besylate (Norvasc -) 5 mg PO DAILY [facility] Last Admin: 02/18/17 09:52 Dose: 5 mg Aspirin (Ecotrin -) 81 mg PO DAILY [facility] Last Admin: 02/18/17 09:53 Dose: 81 mg Heparin Sodium (Porcine) (Heparin -) 5,000 unit SQ BID [facility] Last Admin: 02/18/17 09:53 Dose: 5,000 unit Hydrochlorothiazide (Hctz -) 25 mg PO BID [facility] Last Admin: 02/18/17 09:52 Dose: 25 mg Vancomycin HCl 1,250 mg/ (Dextrose) 250 mls @ 166.667 mls/hr IVPB BID [facility] PRN Reason: Protocol Last Admin: 02/18/17 09:53 Dose: 166.667 mls/hr Piperacillin Sod/Tazobactam Sod (Zosyn 4.5gm Ivpb (Pre-Docked)) 100 mls @ 200 mls/hr IVPB Q8H-IV [facility] PRN Reason: Protocol Last Admin: 02/18/17 17:05 Dose: 200 mls/hr Insulin Aspart (Novolog Vial Sliding Scale -) 1 vial SQ ACHS [facility] PRN Reason: Protocol Last Admin: 02/18/17 17:10 Dose: Not Given Insulin Detemir (Levemir Vial) 30 units SQ AM [facility] Last Admin: 02/18/17 06:08 Dose: 30 units Metformin HCl (Glucophage -) 1,000 mg PO BIDI [facility] Last Admin: 02/18/17 17:11 Dose: 1,000 mg Metoprolol Succinate (Toprol Xl -) 25 mg PO DAILY [facility] Last Admin: 02/18/17 09:52 Dose: 25 mg Oxycodone HCl (Roxicodone -) 5 mg PO Q6H PRN PRN Reason: PAIN Last Admin: 02/18/17 17:05 Dose: 5 mg - Objective Vital Signs: Vital Signs Temperature 100.0 F H 02/18/17 15:14 Pulse Rate 101 H 02/18/17 15:14 Respiratory Rate 18 02/18/17 15:14 Blood Pressure 146/66 02/18/17 15:14 O2 Sat by Pulse Oximetry (%) 96 02/17/17 20:36 Constitutional: Yes: No Distress, Calm Cardiovascular: Yes: Regular Rate and Rhythm Respiratory: Yes: Regular, CTA Bilaterally Gastrointestinal: Yes: Normal Bowel Sounds, Soft Musculoskeletal: Yes: Other Extremities: Yes: Other Wound/Incision: Yes: Dressing Dry and Intact Neurological: Yes: Alert, Oriented Psychiatric: Yes: Alert, Oriented Labs: CBC, BMP 02/18/17 06:30 02/18/17 06:30 Assessment/Plan osteo of the left foot abscess left foot cellulittis left foot gangrene left 5th toe dm leukocytosis fever plan continue current abx will check vanco trough patient probably is going to need amputation wbc increasing and fevers
--- NOTE | 2017-02-18 19:38 | CONSULT ---
Consult Consult Specialty:: endocrine Referred by:: dr.[email or web address] jimenez Reason for Consultation:: diabetes mellitus - History of Present Illness Chief Complaint: high sugars History of Present Illness: 56 yo diabetes mellitus, HTN HLD h/o chronic foot wound, here with left foot infection. 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 Cardio/Vascular: Yes: HTN, Hyperlipdemia Renal/: Yes: Renal Inusuff Infectious Disease: Yes: Other (LLE osteo on MRI here 06/2015) Endocrine: Yes: Diabetes Mellitus (on Victoza) - Past Surgical History Past Surgical History: Yes: Hernia Repair (left inguinal) - Alcohol/Substance Use Hx Alcohol Use: No History of Substance Use: reports: None - Smoking History Smoking history: Never smoked Have you smoked in the past 12 months: No If you are a former smoker, when did you quit?: 1976 - Social History ADL: Independent History of Recent Travel: No Home Medications - Allergies Allergies/Adverse Reactions: Allergies Allergy/AdvReac Type Severity Reaction Status Date / Time No Known Allergies Allergy Verified 02/15/17 09:29 - Home Medications Home Medications: Ambulatory Orders Aspirin Coated [Ecotrin -] 81 mg PO DAILY #30 tablet.ec 04/25/16 Insulin (Levemir) [Levemir Vial] 30 units SQ AM 04/28/16 Amlodipine Besylate [Norvasc -] 5 mg PO DAILY 02/15/17 Esomeprazole Magnesium 40 mg PO BID 02/15/17 Hydrochlorothiazide [Hctz -] 25 mg PO BID 02/15/17 Metformin HCl [Glucophage -] 500 mg PO BID 02/15/17 Metoprolol Succinate [Toprol Xl -] 25 mg PO DAILY 02/15/17 Review of Systems - Review of Systems Constitutional: reports: Malaise Eyes: reports: No Symptoms HENT: reports: No Symptoms Neck: reports: No Symptoms Cardiovascular: reports: Shortness of Breath Respiratory: reports: Exercise Intolerance, SOB Gastrointestinal: reports: No Symptoms Genitourinary: reports: No Symptoms Musculoskeletal: reports: Joint Swelling, Muscle Cramps, Muscle Weakness Integumentary: reports: No Symptoms Neurological: reports: Numbness, Weakness Endocrine: reports: Increased Hunger, Unexplained Weight Gain Physical Exam Vital Signs: Vital Signs Temperature 99.8 F H 02/18/17 19:18 Pulse Rate 106 H 02/18/17 19:18 Respiratory Rate 20 02/18/17 19:18 Blood Pressure 129/75 02/18/17 19:18 O2 Sat by Pulse Oximetry (%) 96 02/18/17 09:40 Constitutional: Yes: Calm Eyes: Yes: EOM Intact HENT: Yes: Normocephalic Neck: Yes: Trachea Midline Cardiovascular: Yes: Regular Rate and Rhythm Respiratory: Yes: CTA Bilaterally Gastrointestinal: Yes: Normal Bowel Sounds, Abdomen, Obese ...Rectal Exam: Yes: Deferred Renal/: Yes: WNL Breast(s): Yes: WNL Musculoskeletal: Yes: Joint Stiffness, Joint Swelling, Muscle Weakness Edema: Yes Edema: RUE: 1+, LLE: 2+ Peripheral Pulses WNL: Yes Integumentary: Yes: Onychomycosis, Venous Stasis Changes Wound/Incision: Yes: Well Approximated, Dressing Dry and Intact Neurological: Yes: Alert, Oriented Labs: CBC, BMP 02/18/17 06:30 02/18/17 06:30 Problem List - Problems (1) Cellulitis Code(s): L03.90 - CELLULITIS, UNSPECIFIED (2) Foot ulcer Code(s): L97.509 - NON-PRESSURE CHRONIC ULCER OT PRT UNSP FOOT W UNSP SEVERITY (3) Morbid obesity Code(s): E66.01 - MORBID (SEVERE) OBESITY DUE TO EXCESS CALORIES (4) Acute on chronic diastolic (congestive) heart failure Code(s): I50.33 - ACUTE ON CHRONIC DIASTOLIC (CONGESTIVE) HEART FAILURE (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 Code(s): E11.29 - TYPE 2 DIABETES MELLITUS W OTH DIABETIC KIDNEY COMPLICATION (6) Diabetes Code(s): E11.9 - TYPE 2 DIABETES MELLITUS WITHOUT COMPLICATIONS Qualifiers: Diabetes mellitus type: other specified (including LASHAY) Diabetes mellitus complication status: with hyperglycemia 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 insulin use: unspecified fci insulin use status Qualified Code (s): E13.65 - Other specified diabetes mellitus with hyperglycemia (7) Gangrene Code(s): I96 - GANGRENE, NOT ELSEWHERE CLASSIFIED Assessment/Plan Current Active Problems Cellulitis (Acute) Foot ulcer (Acute) Morbid obesity (Acute) dm uncontrolled hyperglycemia morbid obesity Abnormal Lab Results 02/18/17 02/18/17 02/18/17 06:00 06:30 06:30 WBC 18.6 H RBC 3.43 L Hgb 9.3 L Hct 28.5 L Plt Count 543 H D Neutrophils % 83.1 H D Sodium 132 L Chloride 94 L Anion Gap 7 L BUN 23 H Random Glucose 159 H D Hemoglobin A1c % 10.8 H Calcium 7.8 L Alkaline Phosphatase 131 H Total Protein 6.1 L Albumin 1.7 L Laboratory Results - last 24 hr 02/18/17 02/18/17 02/18/17 06:00 06:07 06:30 WBC 18.6 H RBC 3.43 L Hgb 9.3 L Hct 28.5 L MCV 82.9 MCH 27.2 MCHC 32.8 RDW 14.6 Plt Count 543 H D MPV 8.2 Neutrophils % 83.1 H D Lymphocytes % 11.5 D Monocytes % 4.5 D Eosinophils % 0.2 D Basophils % 0.7 D Sodium Potassium Chloride Carbon Dioxide Anion Gap BUN Creatinine Creat Clearance w eGFR POC Glucometer 185 Random Glucose Hemoglobin A1c % 10.8 H Calcium Total Bilirubin AST ALT Alkaline Phosphatase Total Protein Albumin 02/18/17 02/18/17 02/18/17 06:30 11:47 17:07 WBC RBC Hgb Hct MCV MCH MCHC RDW Plt Count MPV Neutrophils % Lymphocytes % Monocytes % Eosinophils % Basophils % Sodium 132 L Potassium 4.3 Chloride 94 L Carbon Dioxide 31 Anion Gap 7 L BUN 23 H Creatinine 0.8 Creat Clearance w eGFR > 60 POC Glucometer 192 146 Random Glucose 159 H D Hemoglobin A1c % Calcium 7.8 L Total Bilirubin 0.3 D AST 17 ALT 15 Alkaline Phosphatase 131 H Total Protein 6.1 L Albumin 1.7 L Laboratory Tests 02/18/17 06:00 Hemoglobin A1c % 10.8 H plan: diet insulin dose levemir 30 units am insulin sliding scale doses Current Medications Generic Name Dose Route Start Last Admin Trade Name Freq PRN Reason Stop Dose Admin Acetaminophen 325 mg 02/16/17 08:42 02/18/17 17:10 Tylenol - PO 325 mg Q6H PRN Administration PAIN Amlodipine Besylate 5 mg 02/16/17 10:00 02/18/17 09:52 Norvasc - PO 5 mg DAILY [facility] Administration Aspirin 81 mg 02/16/17 10:00 02/18/17 09:53 Ecotrin - PO 81 mg DAILY [facility] Administration Heparin Sodium (Porcine) 5,000 unit 02/16/17 10:00 02/18/17 09:53 Heparin - SQ 5,000 unit BID [facility] Administration Hydrochlorothiazide 25 mg 02/16/17 10:00 02/18/17 09:52 Hctz - PO 25 mg BID [facility] Administration Vancomycin HCl 1,250 mg/ 250 mls @ 166.667 mls/hr 02/15/17 22:00 02/18/17 09:53 Dextrose IVPB 166.667 mls/hr BID [facility] Administration Protocol Piperacillin Sod/Tazobactam Sod 100 mls @ 200 mls/hr 02/16/17 02:00 02/18/17 17 :05 Zosyn 4.5gm Ivpb (Pre-Docked) IVPB 200 mls/hr Q8H-IV [facility] Administration Protocol Insulin Aspart 1 vial 02/16/17 07:00 02/18/17 17:10 Novolog Vial Sliding Scale - SQ Not Given ACHS [facility] Protocol Insulin Detemir 30 units 02/16/17 07:00 02/18/17 06:08 Levemir Vial SQ 30 units AM [facility] Administration Metformin HCl 1,000 mg 02/17/17 16:30 02/18/17 17:11 Glucophage - PO 1,000 mg BIDI [facility] Administration Metoprolol Succinate 25 mg 02/16/17 10:00 02/18/17 09:52 Toprol Xl - PO 25 mg DAILY [facility] Administration Oxycodone HCl 5 mg 02/16/17 08:42 02/18/17 17:05 Roxicodone - PO 5 mg Q6H PRN Administration PAIN
--- NOTE | 2017-02-18 20:07 | PN ---
Progress Note, Physician History of Present Illness: stable no complaints - Current Medication List Current Medications: Active Medications Acetaminophen (Tylenol -) 325 mg PO Q6H PRN PRN Reason: PAIN Last Admin: 02/18/17 17:10 Dose: 325 mg Amlodipine Besylate (Norvasc -) 5 mg PO DAILY [facility] Last Admin: 02/18/17 09:52 Dose: 5 mg Aspirin (Ecotrin -) 81 mg PO DAILY [facility] Last Admin: 02/18/17 09:53 Dose: 81 mg Heparin Sodium (Porcine) (Heparin -) 5,000 unit SQ BID [facility] Last Admin: 02/18/17 09:53 Dose: 5,000 unit Hydrochlorothiazide (Hctz -) 25 mg PO BID [facility] Last Admin: 02/18/17 09:52 Dose: 25 mg Vancomycin HCl 1,250 mg/ (Dextrose) 250 mls @ 166.667 mls/hr IVPB BID [facility] PRN Reason: Protocol Last Admin: 02/18/17 09:53 Dose: 166.667 mls/hr Piperacillin Sod/Tazobactam Sod (Zosyn 4.5gm Ivpb (Pre-Docked)) 100 mls @ 200 mls/hr IVPB Q8H-IV [facility] PRN Reason: Protocol Last Admin: 02/18/17 17:05 Dose: 200 mls/hr Insulin Aspart (Novolog Vial Sliding Scale -) 1 vial SQ ACHS [facility] PRN Reason: Protocol Last Admin: 02/18/17 17:10 Dose: Not Given Insulin Detemir (Levemir Vial) 30 units SQ AM [facility] Last Admin: 02/18/17 06:08 Dose: 30 units Metformin HCl (Glucophage -) 1,000 mg PO BIDI [facility] Last Admin: 02/18/17 17:11 Dose: 1,000 mg Metoprolol Succinate (Toprol Xl -) 25 mg PO DAILY [facility] Last Admin: 02/18/17 09:52 Dose: 25 mg Oxycodone HCl (Roxicodone -) 5 mg PO Q6H PRN PRN Reason: PAIN Last Admin: 02/18/17 17:05 Dose: 5 mg - Objective Vital Signs: Vital Signs Temperature 99.8 F H 02/18/17 19:18 Pulse Rate 106 H 02/18/17 19:18 Respiratory Rate 20 02/18/17 19:18 Blood Pressure 129/75 02/18/17 19:18 O2 Sat by Pulse Oximetry (%) 96 02/18/17 09:40 Constitutional: Yes: No Distress HENT: Yes: Atraumatic Neck: Yes: Supple Cardiovascular: Yes: Regular Rate and Rhythm Respiratory: Yes: CTA Bilaterally Gastrointestinal: Yes: Normal Bowel Sounds Extremities: Yes: Other (LEFT FOOT IN DRESSING) Edema: LLE: 2+ (FOOT), RLE: 1+ Neurological: Yes: Alert, Oriented Labs: CBC, BMP 02/18/17 06:30 02/18/17 06:30 Problem List - Problems (1) Cellulitis Assessment/Plan: iv abx...continue Code(s): L03.90 - CELLULITIS, UNSPECIFIED (2) Foot ulcer Code(s): L97.509 - NON-PRESSURE CHRONIC ULCER OTH PRT UNSP FOOT W UNSP SEVERITY (3) Diabetes Assessment/Plan: on insulin bgms Code(s): E11.9 - TYPE 2 DIABETES MELLITUS WITHOUT COMPLICATIONS Qualifiers: Diabetes mellitus type: other specified (including LASHAY) Diabetes mellitus complication status: with hyperglycemia Diabetes mellitus intermediate manager insulin use: unspecified senior care insulin use status Qualified Code (s): E13.65 - Other specified diabetes mellitus with hyperglycemia (4) Gangrene Code(s): I96 - GANGRENE, NOT ELSEWHERE CLASSIFIED (5) HTN (hypertension) Assessment/Plan: on meds stable Code(s): I10 - ESSENTIAL (PRIMARY) HYPERTENSION (6) Osteomyelitis Assessment/Plan: on iv abx Code(s): M86.9 - OSTEOMYELITIS, UNSPECIFIED Assessment/Plan covering dr pulliam...DAY 1
[2017-02-18] MEDS: VANCOMYCIN 1,500 MG in DEXTROSE 5%-WATER - 500 ML IVPB SCH (23:23)
[2017-02-19] MEDS: VANCOMYCIN 1,250 MG in DEXTROSE 5%-WATER - 250 ML IVPB SCH (00:02)
[2017-02-19] MEDS: PIPERACILLIN/TAZOB 4.5 GM 100 ML IVPB SCH ×3 (02:22→18:03)
[2017-02-19] MEDS: oxyCODONE HCL 5 MG TABLET PO PRN ×2 (06:30→18:51)
[2017-02-19] MEDS: metFORMIN HCL 500 MG TABLET (FP) PO SCH ×2 (06:30→16:53)
[2017-02-19] MEDS: ACETAMINOPHEN 325 MG TABLET (FP) PO PRN ×2 (06:30→18:00)
[2017-02-19] MEDS: INSULIN DETEMIR 100 UNITS/ML MDV SQ SCH (06:33)
[2017-02-19] MEDS: INSULIN SLIDING SCALE (NOVOLOG) 1 VIAL SQ SCH ×4 (06:34→22:51)
[2017-02-19] MEDS: HEPARIN NA (PORCINE) 5,000 UNITS/ML 1ML VIAL SQ SCH ×2 (09:21→22:50)
[2017-02-19] MEDS: ASPIRIN COATED 81 MG TABLET.EC PO SCH (09:21)
[2017-02-19] MEDS: HYDROCHLOROTHIAZIDE 25 MG TABLET (FP) PO SCH ×2 (09:22→22:50)
[2017-02-19] MEDS: METOPROLOL SUCCINATE 25 MG TAB.SR.24H (FP) PO SCH (09:22)
[2017-02-19] MEDS: amLODIPine BESYLATE 5 MG TABLET (FP) PO SCH (09:25)
[2017-02-19] MEDS: VANCOMYCIN 1,500 MG in DEXTROSE 5%-WATER - 500 ML IVPB SCH ×2 (10:38→22:49)
--- NOTE | 2017-02-19 12:43 | PN ---
Progress Note, Physician Chief Complaint: constipation,poor appetite History of Present Illness: 56 yo diabetes mellitus, HTN HLD h/o chronic foot wound, here with left foot infection. According tot he patient this has been going on for more than 3 weeks and because he did not ahve any insurance he did not come to the hospital, has dm over 20yrs, without hypoglycemia,has poor appetite feel bloating - Current Medication List Current Medications: Active Medications Acetaminophen (Tylenol -) 325 mg PO Q6H PRN PRN Reason: PAIN Last Admin: 02/19/17 06:30 Dose: 325 mg Amlodipine Besylate (Norvasc -) 5 mg PO DAILY [facility] Last Admin: 02/19/17 09:25 Dose: 5 mg Aspirin (Ecotrin -) 81 mg PO DAILY [facility] Last Admin: 02/19/17 09:21 Dose: 81 mg Bisacodyl (Dulcolax -) 10 mg PO ONCE ONE Stop: 02/19/17 12:38 Heparin Sodium (Porcine) (Heparin -) 5,000 unit SQ BID [facility] Last Admin: 02/19/17 09:21 Dose: 5,000 unit Hydrochlorothiazide (Hctz -) 25 mg PO BID [facility] Last Admin: 02/19/17 09:22 Dose: 25 mg Piperacillin Sod/Tazobactam Sod (Zosyn 4.5gm Ivpb (Pre-Docked)) 100 mls @ 200 mls/hr IVPB Q8H-IV [facility] PRN Reason: Protocol Last Admin: 02/19/17 09:22 Dose: 200 mls/hr Vancomycin HCl 1,500 mg/ (Dextrose) 500 mls @ 250 mls/hr IVPB BID [facility] Last Admin: 02/19/17 10:38 Dose: 250 mls/hr Insulin Aspart (Novolog Vial Sliding Scale -) 1 vial SQ ACHS [facility] PRN Reason: Protocol Last Admin: 02/19/17 12:09 Dose: 6 units Insulin Detemir (Levemir Vial) 30 units SQ AM [facility] Last Admin: 02/19/17 06:33 Dose: 30 units Metformin HCl (Glucophage -) 1,000 mg PO BIDI [facility] Last Admin: 02/19/17 06:30 Dose: 1,000 mg Metoprolol Succinate (Toprol Xl -) 25 mg PO DAILY [facility] Last Admin: 02/19/17 09:22 Dose: 25 mg - Objective Vital Signs: Vital Signs Temperature 99.6 F 02/19/17 11:51 Pulse Rate 99 H 02/19/17 08:43 Respiratory Rate 18 02/19/17 08:43 Blood Pressure 147/79 02/19/17 08:43 O2 Sat by Pulse Oximetry (%) 97 02/18/17 21:00 Constitutional: Yes: Well Nourished Eyes: Yes: WNL HENT: Yes: WNL Cardiovascular: Yes: WNL Respiratory: Yes: WNL Gastrointestinal: Yes: Abdomen, Obese, Hypoactive Bowel Sounds ...Rectal Exam: Yes: Deferred Genitourinary: Yes: WNL Musculoskeletal: Yes: Joint Stiffness, Joint Swelling, Muscle Weakness Extremities: Yes: Delayed Capillary Refill Edema: Yes Edema: LLE: 1+, RLE: Trace Peripheral Pulses WNL: Yes Labs: CBC, BMP 02/18/17 06:30 02/18/17 06:30 Problem List - Problems (1) Cellulitis Code(s): L03.90 - CELLULITIS, UNSPECIFIED (2) Foot ulcer Code(s): L97.509 - NON-PRESSURE CHRONIC ULCER OTH PRT UNSP FOOT W UNSP SEVERITY (3) Morbid obesity Code(s): E66.01 - MORBID (SEVERE) OBESITY DUE TO EXCESS CALORIES (4) Acute on chronic diastolic (congestive) heart failure Code(s): I50.33 - ACUTE ON CHRONIC DIASTOLIC (CONGESTIVE) HEART FAILURE (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 Code(s): E11.29 - TYPE 2 DIABETES MELLITUS W OTH DIABETIC KIDNEY COMPLICATION (6) Diabetes Code(s): E11.9 - TYPE 2 DIABETES MELLITUS WITHOUT COMPLICATIONS Qualifiers: Diabetes mellitus type: other specified (including LASHAY) Diabetes mellitus complication status: with hyperglycemia Diabetes mellitus oysterman insulin use: unspecified oysterman insulin use status Qualified Code (s): E13.65 - Other specified diabetes mellitus with hyperglycemia (7) Gangrene Code(s): I96 - GANGRENE, NOT ELSEWHERE CLASSIFIED Assessment/Plan Current Active Problems Cellulitis (Acute) Foot ulcer (Acute) Morbid obesity (Acute) constipation dm uncontrolled neuropathy vascular disease non healing ulcer Laboratory Results - last 24 hr 02/18/17 02/18/17 02/18/17 17:07 21:30 23:21 POC Glucometer 146 187 Vancomycin Pre-Dose 8.596 plan: Current Medications Generic Name Dose Route Start Last Admin Trade Name Charanjit PRN Reason Stop Dose Admin Acetaminophen 325 mg 02/16/17 08:42 02/19/17 06:30 Tylenol - PO 325 mg Q6H PRN Administration PAIN Amlodipine Besylate 5 mg 02/16/17 10:00 02/19/17 09:25 Norvasc - PO 5 mg DAILY [facility] Administration Aspirin 81 mg 02/16/17 10:00 02/19/17 09:21 Ecotrin - PO 81 mg DAILY [facility] Administration Bisacodyl 10 mg 02/19/17 12:45 Dulcolax - PO 02/19/17 12:46 ONCE ONE Heparin Sodium (Porcine) 5,000 unit 02/16/17 10:00 02/19/17 09:21 Heparin - SQ 5,000 unit BID [facility] Administration Hydrochlorothiazide 25 mg 02/16/17 10:00 02/19/17 09:22 Hctz - PO 25 mg BID [facility] Administration Piperacillin Sod/Tazobactam Sod 100 mls @ 200 mls/hr 02/16/17 02:00 02/19/17 09 :22 Zosyn 4.5gm Ivpb (Pre-Docked) IVPB 200 mls/hr Q8H-IV [facility] Administration Protocol Vancomycin HCl 1,500 mg/ 500 mls @ 250 mls/hr 02/18/17 23:00 02/19/17 10:38 Dextrose IVPB 250 mls/hr BID [facility] Administration Insulin Aspart 1 vial 02/16/17 07:00 02/19/17 12:09 Novolog Vial Sliding Scale - SQ 6 units ACHS [facility] Administration Protocol Insulin Detemir 30 units 02/16/17 07:00 02/19/17 06:33 Levemir Vial SQ 30 units AM [facility] Administration Metformin HCl 1,000 mg 02/17/17 16:30 02/19/17 06:30 Glucophage - PO 1,000 mg BIDI [facility] Administration Metoprolol Succinate 25 mg 02/16/17 10:00 02/19/17 09:22 Toprol Xl - PO 25 mg DAILY [facility] Administration
[2017-02-19] MEDS ORDERED: BISACODYL 5 MG TABLET.DR (FP) PO ONE (12:45)
--- NOTE | 2017-02-19 14:31 | PN ---
Progress Note, Physician History of Present Illness: patient feeling well says he has no pain today dressing intact no complaints patient continues to spike fever - Current Medication List Current Medications: Active Medications Acetaminophen (Tylenol -) 325 mg PO Q6H PRN PRN Reason: PAIN Last Admin: 02/19/17 06:30 Dose: 325 mg Amlodipine Besylate (Norvasc -) 5 mg PO DAILY [facility] Last Admin: 02/19/17 09:25 Dose: 5 mg Aspirin (Ecotrin -) 81 mg PO DAILY [facility] Last Admin: 02/19/17 09:21 Dose: 81 mg Heparin Sodium (Porcine) (Heparin -) 5,000 unit SQ BID [facility] Last Admin: 02/19/17 09:21 Dose: 5,000 unit Hydrochlorothiazide (Hctz -) 25 mg PO BID [facility] Last Admin: 02/19/17 09:22 Dose: 25 mg Piperacillin Sod/Tazobactam Sod (Zosyn 4.5gm Ivpb (Pre-Docked)) 100 mls @ 200 mls/hr IVPB Q8H-IV [facility] PRN Reason: Protocol Last Admin: 02/19/17 09:22 Dose: 200 mls/hr Vancomycin HCl 1,500 mg/ (Dextrose) 500 mls @ 250 mls/hr IVPB BID [facility] Last Admin: 02/19/17 10:38 Dose: 250 mls/hr Insulin Aspart (Novolog Vial Sliding Scale -) 1 vial SQ ACHS [facility] PRN Reason: Protocol Last Admin: 02/19/17 12:09 Dose: 6 units Insulin Detemir (Levemir Vial) 30 units SQ AM [facility] Last Admin: 02/19/17 06:33 Dose: 30 units Metformin HCl (Glucophage -) 1,000 mg PO BIDI [facility] Last Admin: 02/19/17 06:30 Dose: 1,000 mg Metoprolol Succinate (Toprol Xl -) 25 mg PO DAILY [facility] Last Admin: 02/19/17 09:22 Dose: 25 mg - Objective Vital Signs: Vital Signs Temperature 100.7 F H 02/19/17 14:14 Pulse Rate 99 H 02/19/17 14:14 Respiratory Rate 18 02/19/17 14:14 Blood Pressure 118/70 02/19/17 14:14 O2 Sat by Pulse Oximetry (%) 97 02/18/17 21:00 Constitutional: Yes: No Distress, Calm, Obese Cardiovascular: Yes: Regular Rate and Rhythm Respiratory: Yes: Regular, CTA Bilaterally Gastrointestinal: Yes: Normal Bowel Sounds, Soft Musculoskeletal: Yes: Other Extremities: Yes: Other Wound/Incision: Yes: Dressing Dry and Intact Neurological: Yes: Alert, Oriented Psychiatric: Yes: Alert, Oriented Labs: CBC, BMP 02/18/17 06:30 02/18/17 06:30 Assessment/Plan osteo of the left foot abscess left foot cellulittis left foot gangrene left 5th toe dm leukocytosis fever plan continue current abx vanco trough noted vanco level increased patient probably is going to need amputation will check wbc continues to spike fevers
[2017-02-19] MEDS ORDERED: PT OWN MED DRAWER 7, Y5N ONE (16:46)
[2017-02-19] MEDS ORDERED: INSULIN (NOVOLOG) ASPART 100 UNITS/ML 10ML VIAL ONE ×2 (16:47→16:48)
--- NOTE | 2017-02-19 18:44 | PN ---
Progress Note, Physician History of Present Illness: no complaints - Current Medication List Current Medications: Active Medications Acetaminophen (Tylenol -) 325 mg PO Q6H PRN PRN Reason: PAIN Last Admin: 02/19/17 18:00 Dose: 325 mg Amlodipine Besylate (Norvasc -) 5 mg PO DAILY [facility] Last Admin: 02/19/17 09:25 Dose: 5 mg Aspirin (Ecotrin -) 81 mg PO DAILY [facility] Last Admin: 02/19/17 09:21 Dose: 81 mg Heparin Sodium (Porcine) (Heparin -) 5,000 unit SQ BID [facility] Last Admin: 02/19/17 09:21 Dose: 5,000 unit Hydrochlorothiazide (Hctz -) 25 mg PO BID [facility] Last Admin: 02/19/17 09:22 Dose: 25 mg Piperacillin Sod/Tazobactam Sod (Zosyn 4.5gm Ivpb (Pre-Docked)) 100 mls @ 200 mls/hr IVPB Q8H-IV [facility] PRN Reason: Protocol Last Admin: 02/19/17 18:03 Dose: 200 mls/hr Vancomycin HCl 1,500 mg/ (Dextrose) 500 mls @ 250 mls/hr IVPB BID [facility] Last Admin: 02/19/17 10:38 Dose: 250 mls/hr Insulin Aspart (Novolog Vial Sliding Scale -) 1 vial SQ ACHS [facility] PRN Reason: Protocol Last Admin: 02/19/17 16:51 Dose: 4 units Insulin Detemir (Levemir Vial) 30 units SQ AM [facility] Last Admin: 02/19/17 06:33 Dose: 30 units Metformin HCl (Glucophage -) 1,000 mg PO BIDI [facility] Last Admin: 02/19/17 16:53 Dose: 1,000 mg Metoprolol Succinate (Toprol Xl -) 25 mg PO DAILY [facility] Last Admin: 02/19/17 09:22 Dose: 25 mg Oxycodone HCl (Roxicodone -) 10 mg PO Q4H PRN PRN Reason: PAIN - Objective Vital Signs: Vital Signs Temperature 100.7 F H 02/19/17 14:14 Pulse Rate 99 H 02/19/17 14:14 Respiratory Rate 18 02/19/17 14:14 Blood Pressure 118/70 02/19/17 14:14 O2 Sat by Pulse Oximetry (%) 97 02/18/17 21:00 Constitutional: Yes: No Distress HENT: Yes: Atraumatic Neck: Yes: Supple Cardiovascular: Yes: Regular Rate and Rhythm Respiratory: Yes: CTA Bilaterally Gastrointestinal: Yes: Normal Bowel Sounds Extremities: Yes: Other (LEFT FOOT IN DRESSING/ CELLULITIS) Neurological: Yes: Alert, Oriented Labs: CBC, BMP 02/18/17 06:30 02/18/17 06:30 Problem List - Problems (1) Cellulitis Assessment/Plan: iv abx...continue FOR OR IN AM Code(s): L03.90 - CELLULITIS, UNSPECIFIED (2) Foot ulcer Code(s): L97.509 - NON-PRESSURE CHRONIC ULCER OTH PRT UNSP FOOT W UNSP SEVERITY (3) Diabetes Assessment/Plan: on insulin, PO MEDS bgms Code(s): E11.9 - TYPE 2 DIABETES MELLITUS WITHOUT COMPLICATIONS Qualifiers: Diabetes mellitus type: other specified (including LASHAY) Diabetes mellitus complication status: with hyperglycemia Diabetes mellitus group home insulin use: unspecified buttermaker continuous churn insulin use status Qualified Code (s): E13.65 - Other specified diabetes mellitus with hyperglycemia (4) Gangrene Code(s): I96 - GANGRENE, NOT ELSEWHERE CLASSIFIED (5) HTN (hypertension) Assessment/Plan: on meds stable Code(s): I10 - ESSENTIAL (PRIMARY) HYPERTENSION (6) Osteomyelitis Assessment/Plan: on iv abx Code(s): M86.9 - OSTEOMYELITIS, UNSPECIFIED Assessment/Plan covering dr pulliam...DAY 2
[2017-02-20] MEDS: PIPERACILLIN/TAZOB 4.5 GM 100 ML IVPB SCH ×2 (01:37→09:48)
[2017-02-20] MEDS: oxyCODONE HCL 5 MG TABLET PO PRN ×3 (01:37→21:27)
[2017-02-20] MEDS: ACETAMINOPHEN 325 MG TABLET (FP) PO PRN ×3 (01:38→21:27)
[2017-02-20] MEDS: INSULIN DETEMIR 100 UNITS/ML MDV SQ SCH (06:16)
[2017-02-20] MEDS: metFORMIN HCL 500 MG TABLET (FP) PO SCH ×2 (06:16→18:00)
[2017-02-20] MEDS: INSULIN SLIDING SCALE (NOVOLOG) 1 VIAL SQ SCH ×4 (06:17→21:13)
[2017-02-20] MEDS ORDERED: INSULIN DETEMIR 100 UNITS/ML MDV SQ ONE (06:57)
[2017-02-20 07:24] LABS: MCHC 32.9 g/dl (32.0-35.9); MEAN CELL VOLUME 82.1 fl (80-96); MEAN PLT VOLUME 7.5 fl (7.5-11.1); PLATELET COUNT 619 K/MM3 (134-434); RDW 14.2 % (11.9-15.9)
[2017-02-20 07:53] LABS: ANION GAP 8 (8-16); CALCIUM 8.4 mg/dL (8.5-10.1); CO2 33 mmol/L (21-32); GLUCOSE,RANDOM 176 mg/dL (74-106)
[2017-02-20 07:55] LABS: CREATININE 0.7 mg/dL (0.7-1.3)
[2017-02-20] MEDS: ASPIRIN COATED 81 MG TABLET.EC PO SCH (09:44)
[2017-02-20] MEDS: HYDROCHLOROTHIAZIDE 25 MG TABLET (FP) PO SCH ×2 (09:49→21:12)
[2017-02-20] MEDS: HEPARIN NA (PORCINE) 5,000 UNITS/ML 1ML VIAL SQ SCH ×2 (09:49→21:12)
[2017-02-20] MEDS: METOPROLOL SUCCINATE 25 MG TAB.SR.24H (FP) PO SCH (09:49)
[2017-02-20] MEDS: amLODIPine BESYLATE 5 MG TABLET (FP) PO SCH (09:49)
[2017-02-20] MEDS: VANCOMYCIN 1,500 MG in DEXTROSE 5%-WATER - 500 ML IVPB SCH ×2 (09:49→21:13)
[2017-02-20] MEDS ORDERED: DEXTROSE 5%-0.45% SALINE 1,000 ML IV SCH ×2 (10:30→14:19)
--- NOTE | 2017-02-20 12:34 | PN ---
Progress Note, Physician History of Present Illness: patient feeling well n issues going for surgery today - Current Medication List Current Medications: Active Medications Acetaminophen (Tylenol -) 325 mg PO Q6H PRN PRN Reason: PAIN Last Admin: 02/20/17 01:38 Dose: 325 mg Amlodipine Besylate (Norvasc -) 5 mg PO DAILY [facility] Last Admin: 02/20/17 09:49 Dose: 5 mg Aspirin (Ecotrin -) 81 mg PO DAILY [facility] Last Admin: 02/20/17 09:44 Dose: Not Given Heparin Sodium (Porcine) (Heparin -) 5,000 unit SQ BID [facility] Last Admin: 02/20/17 09:49 Dose: Not Given Hydrochlorothiazide (Hctz -) 25 mg PO BID [facility] Last Admin: 02/20/17 09:49 Dose: 25 mg Piperacillin Sod/Tazobactam Sod (Zosyn 4.5gm Ivpb (Pre-Docked)) 100 mls @ 200 mls/hr IVPB Q8H-IV [facility] PRN Reason: Protocol Last Admin: 02/20/17 09:48 Dose: 200 mls/hr Vancomycin HCl 1,500 mg/ (Dextrose) 500 mls @ 250 mls/hr IVPB BID [facility] Last Admin: 02/20/17 09:49 Dose: 250 mls/hr Dextrose/Sodium Chloride (D5-1/2ns -) 1,000 mls @ 60 mls/hr IV ASDIR [facility] Insulin Aspart (Novolog Vial Sliding Scale -) 1 vial SQ ACHS [facility] PRN Reason: Protocol Last Admin: 02/20/17 06:17 Dose: Not Given Insulin Detemir (Levemir Vial) 30 units SQ AM [facility] Last Admin: 02/20/17 06:16 Dose: Not Given Metformin HCl (Glucophage -) 1,000 mg PO BIDI [facility] Last Admin: 02/20/17 06:16 Dose: Not Given Metoprolol Succinate (Toprol Xl -) 25 mg PO DAILY [facility] Last Admin: 02/20/17 09:49 Dose: 25 mg Oxycodone HCl (Roxicodone -) 10 mg PO Q4H PRN PRN Reason: PAIN Last Admin: 02/20/17 01:37 Dose: 10 mg - Objective Vital Signs: Vital Signs Temperature 99.4 F 02/20/17 10:00 Pulse Rate 93 H 02/20/17 10:00 Respiratory Rate 18 02/20/17 10:00 Blood Pressure 136/65 02/20/17 10:00 O2 Sat by Pulse Oximetry (%) 95 02/20/17 09:00 Constitutional: Yes: No Distress, Calm Cardiovascular: Yes: Regular Rate and Rhythm Respiratory: Yes: Regular, CTA Bilaterally Gastrointestinal: Yes: Normal Bowel Sounds, Soft Musculoskeletal: Yes: WNL Extremities: Yes: Other Wound/Incision: Yes: Dressing Dry and Intact Neurological: Yes: Alert, Oriented Psychiatric: Yes: Alert, Oriented Labs: CBC, BMP 02/20/17 06:00 02/20/17 06:00 Assessment/Plan osteo of the left foot abscess left foot cellulittis left foot gangrene left 5th toe dm leukocytosis fever plan continue current abx patient for or today will continue current mgmt rest will see what surgery plans further
--- NOTE | 2017-02-20 12:36 | PN ---
Progress Note (short form) - Note Progress Note: Podiatry Patient seen at bedside has no complaints Patient to the OR today for debridement of necrotic soft tissue and bone all Left foot Patient underwent I&D on Saturday of his left foot, he had a festering infection for 3 weeks, he was unable to seek medical attention due to the fact he lost his insurance. Patient has been explained the need for this procedure as well as the poor prognosis for saving his leg due to the extensive nature of his infection. Patient demonstrated verbal understanding of all that was said today Patient to the OR today Will follow
[2017-02-20] MEDS ORDERED: MIDAZOLAM HCL 2 MG/2 ML SINGLE DOSE VIAL ONE (12:57)
[2017-02-20] MEDS ORDERED: PROPOFOL 20 ML ONE (12:57)
[2017-02-20] MEDS ORDERED: PIPERACILLIN/TAZOB 4.5 GM 4.5 GM in DEXTROSE 5%-WATER 100 ML IVPB SCH (13:06)
--- NOTE | 2017-02-20 13:58 | OP ---
Operative Note - Note: Operative Date: 02/20/17 Pre-Operative Diagnosis: Deep abscess Left foot Operation: I&D of deep abscess x 2 ( 1) Along Peronela tendons 2) Along Tib Anterior) and debridement of necrotic tissue all left foot Findings: Purulence tracking along peroneal tendons and Anterior Tib tendon. Necrotic tissue first interspace Implants: None Surgeon: Gal Chew Anesthesiologist/SUPERVISOR HARDBOARD: Jeremi Copeland Anesthesia: General (LMA) Estimated Blood Loss (mls): 30 Instrument used (Debridements only): 10 blade Drains & Tubes with Location: 2 inch Iodoform packing Operative Report Dictated: Yes
--- NOTE | 2017-02-20 14:11 | PN ---
Progress Note (short form) - Note Progress Note: Patient tolerated OR well today Infection along Peroneal And Anterior Tib Tendon Will change dressing in 48 hours. Plan: 1) Tunnelled catheter/ IV Abx 2) HBO 3) Local wound care
[2017-02-20] MEDS ORDERED: ONDANSETRON 4 MG/2 ML VIAL IVPUSH PRN (14:16)
[2017-02-20] MEDS ORDERED: PROMETHAZINE HCL 25 MG/1 ML VIAL IVPUSH PRN (14:16)
[2017-02-20] MEDS ORDERED: oxyCODONE HCL 5 MG TABLET PO PRN (14:30)
[2017-02-20] MEDS ORDERED: LACTATED RINGERS SOLUTION 1,000 ML IV SCH (14:30)
[2017-02-20] MEDS: ACETAMINOPHEN 1000 MG/100 ML VIAL (NON FORMULARY) IVPB ONE ×2 (14:46→15:00)
[2017-02-20] MEDS ORDERED: ACETAMINOPHEN INJECTION 100 ML IVPB ONE (14:47)
--- NOTE | 2017-02-20 17:30 | PN ---
Progress Note, Physician History of Present Illness: no complaints - Current Medication List Current Medications: Active Medications Acetaminophen (Tylenol -) 325 mg PO Q6H PRN PRN Reason: PAIN Stop: 02/24/17 23:59 Last Admin: 02/20/17 15:58 Dose: 325 mg Amlodipine Besylate (Norvasc -) 5 mg PO DAILY [facility] Aspirin (Ecotrin -) 81 mg PO DAILY [facility] Fentanyl (Sublimaze Injection -) 50 mcg IVPUSH [id number] PRN PRN Reason: PAIN Stop: 02/23/17 14:17 Last Admin: 02/20/17 14:45 Dose: 50 mcg Heparin Sodium (Porcine) (Heparin -) 5,000 unit SQ BID [facility] Hydrochlorothiazide (Hctz -) 25 mg PO BID [facility] Lactated Ringer's (Lactated Ringers Solution) 1,000 mls @ 125 mls/hr IV ASDIR [facility] Dextrose/Sodium Chloride (D5-1/2ns -) 1,000 mls @ 60 mls/hr IV ASDIR [facility] Last Admin: 02/20/17 14:54 Dose: 60 mls/hr Vancomycin HCl 1,500 mg/ (Dextrose) 500 mls @ 250 mls/hr IVPB BID [facility] Piperacillin Sod/Tazobactam (Sod 4.5 gm/ Dextrose) 100 mls @ 200 mls/hr IVPB Q8H-IV [facility] PRN Reason: Protocol Insulin Aspart (Novolog Vial Sliding Scale -) 1 vial SQ ACHS [facility] PRN Reason: Protocol Insulin Detemir (Levemir Vial) 30 units SQ AM [facility] Metformin HCl (Glucophage -) 1,000 mg PO BIDI [facility] Metoprolol Succinate (Toprol Xl -) 25 mg PO DAILY [facility] Ondansetron HCl (Zofran Injection) 4 mg IVPUSH Q6H PRN PRN Reason: NAUSEA AND/OR VOMITING Stop: 02/20/17 20:17 Oxycodone HCl (Roxicodone -) 10 mg PO Q4H PRN PRN Reason: PAIN Last Admin: 02/20/17 15:57 Dose: 10 mg Promethazine HCl (Phenergan Injection -) 12.5 mg IVPUSH Q6H PRN PRN Reason: NAUSEA Stop: 02/20/17 20:17 - Objective Vital Signs: Vital Signs Temperature 99.5 F 02/20/17 15:28 Pulse Rate 96 H 02/20/17 15:28 Respiratory Rate 18 02/20/17 15:28 Blood Pressure 141/76 02/20/17 15:28 O2 Sat by Pulse Oximetry (%) 95 02/20/17 15:00 Constitutional: Yes: No Distress HENT: Yes: Atraumatic Neck: Yes: Supple Cardiovascular: Yes: Regular Rate and Rhythm Respiratory: Yes: CTA Bilaterally Gastrointestinal: Yes: Normal Bowel Sounds Extremities: Yes: Other (LEFT FOOT IN DRESSING) Neurological: Yes: Alert, Oriented Labs: CBC, BMP 02/20/17 06:00 02/20/17 06:00 Problem List - Problems (1) Cellulitis Assessment/Plan: iv abx...continue S/P I AND DEBRIDEMENT OF LEFT FOOT Code(s): L03.90 - CELLULITIS, UNSPECIFIED (2) Foot ulcer Code(s): L97.509 - NON-PRESSURE CHRONIC ULCER OTH PRT UNSP FOOT W UNSP SEVERITY (3) Diabetes Assessment/Plan: on insulin, PO MEDS bgms Code(s): E11.9 - TYPE 2 DIABETES MELLITUS WITHOUT COMPLICATIONS Qualifiers: Diabetes mellitus type: other specified (including LASHAY) Diabetes mellitus complication status: with hyperglycemia Diabetes mellitus rn long term care insulin use: unspecified rn long term care insulin use status Qualified Code (s): E13.65 - Other specified diabetes mellitus with hyperglycemia (4) Gangrene Code(s): I96 - GANGRENE, NOT ELSEWHERE CLASSIFIED (5) HTN (hypertension) Assessment/Plan: on meds stable Code(s): I10 - ESSENTIAL (PRIMARY) HYPERTENSION (6) Osteomyelitis Assessment/Plan: on iv abx Code(s): M86.9 - OSTEOMYELITIS, UNSPECIFIED Assessment/Plan covering dr pulliam...DAY 3 SHE WILL RESUME CARE FROM TOMORROW
[2017-02-20] MEDS ORDERED: PIPERACILLIN/TAZOBACTAM 4.5 GM VIAL IVPB ONE (17:58)
[2017-02-20] MEDS ORDERED: DEXTROSE 5%-WATER 100 ML IVPB ONE (17:59)
[2017-02-20] MEDS: PIPERACILLIN/TAZOB 4.5 GM 4.5 GM in DEXTROSE 5%-WATER 100 ML IVPB SCH (18:01)
[2017-02-20] MEDS: SENNOSIDES 8.6MG TABLET (FP) PO SCH (21:12)
[2017-02-20] MEDS ORDERED: DOCUSATE SODIUM 100 MG CAPSULE (FP) PO PRN (22:00)
--- NOTE | 2017-02-21 00:20 | PN ---
Progress Note, Physician Chief Complaint: high sugars post op History of Present Illness: 56 yo diabetes mellitus, HTN HLD h/o chronic foot wound, here with left foot infection. According tot he patient this has been going on for more than 3 weeks and because he did not ahve any insurance he did not come to the hospital, has dm over 20yrs, without hypoglycemia,has poor appetite feel bloating sp left foot abscess surgical procedure - Current Medication List Current Medications: Active Medications Acetaminophen (Tylenol -) 325 mg PO Q6H PRN PRN Reason: PAIN Stop: 02/24/17 23:59 Last Admin: 02/20/17 21:27 Dose: 325 mg Amlodipine Besylate (Norvasc -) 5 mg PO DAILY [facility] Aspirin (Ecotrin -) 81 mg PO DAILY [facility] Docusate Sodium (Colace -) 100 mg PO BID PRN PRN Reason: CONSTIPATION Heparin Sodium (Porcine) (Heparin -) 5,000 unit SQ BID [facility] Last Admin: 02/20/17 21:12 Dose: 5,000 unit Hydrochlorothiazide (Hctz -) 25 mg PO BID [facility] Last Admin: 02/20/17 21:12 Dose: 25 mg Vancomycin HCl 1,500 mg/ (Dextrose) 500 mls @ 250 mls/hr IVPB BID [facility] Last Admin: 02/20/17 21:13 Dose: 250 mls/hr Piperacillin Sod/Tazobactam (Sod 4.5 gm/ Dextrose) 100 mls @ 200 mls/hr IVPB Q8H-IV [facility] PRN Reason: Protocol Last Admin: 02/20/17 18:01 Dose: 200 mls/hr Insulin Aspart (Novolog Vial Sliding Scale -) 1 vial SQ ACHS [facility] PRN Reason: Protocol Last Admin: 02/20/17 21:13 Dose: 10 units Insulin Detemir (Levemir Vial) 30 units SQ AM [facility] Metformin HCl (Glucophage -) 1,000 mg PO BIDI [facility] Last Admin: 02/20/17 18:00 Dose: 1,000 mg Metoprolol Succinate (Toprol Xl -) 25 mg PO DAILY [facility] Oxycodone HCl (Roxicodone -) 10 mg PO Q4H PRN PRN Reason: PAIN Last Admin: 02/20/17 21:27 Dose: 10 mg Senna (Senna -) 1 tab PO BID [facility] Last Admin: 02/20/17 21:12 Dose: 1 tab - Objective Vital Signs: Vital Signs Temperature 98.8 F 02/20/17 20:22 Pulse Rate 81 02/20/17 20:22 Respiratory Rate 18 02/20/17 20:23 Blood Pressure 146/74 02/20/17 20:22 O2 Sat by Pulse Oximetry (%) 96 02/20/17 20:23 Constitutional: Yes: Calm Eyes: Yes: EOM Intact HENT: Yes: Normocephalic Neck: Yes: Trachea Midline Cardiovascular: Yes: Regular Rate and Rhythm Respiratory: Yes: CTA Bilaterally Gastrointestinal: Yes: Normal Bowel Sounds ...Rectal Exam: Yes: Deferred Genitourinary: Yes: WNL Breast(s): Yes: WNL Musculoskeletal: Yes: Back Pain, Joint Swelling, Muscle Pain Extremities: Yes: Delayed Capillary Refill, Erythema Peripheral Pulses WNL: Yes Labs: CBC, BMP 02/20/17 06:00 02/20/17 06:00 Problem List - Problems (1) Cellulitis Code(s): L03.90 - CELLULITIS, UNSPECIFIED (2) Foot ulcer Code(s): L97.509 - NON-PRESSURE CHRONIC ULCER OT PRT UNSP FOOT W UNSP SEVERITY (3) Morbid obesity Code(s): E66.01 - MORBID (SEVERE) OBESITY DUE TO EXCESS CALORIES (4) Acute on chronic diastolic (congestive) heart failure Code(s): I50.33 - ACUTE ON CHRONIC DIASTOLIC (CONGESTIVE) HEART FAILURE (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 Code(s): E11.29 - TYPE 2 DIABETES MELLITUS W OTH DIABETIC KIDNEY COMPLICATION (6) Diabetes Code(s): E11.9 - TYPE 2 DIABETES MELLITUS WITHOUT COMPLICATIONS Qualifiers: Diabetes mellitus type: other specified (including LASHAY) Diabetes mellitus complication status: with hyperglycemia Diabetes mellitus fdc insulin use: unspecified terminal system operator insulin use status Qualified Code (s): E13.65 - Other specified diabetes mellitus with hyperglycemia (7) Gangrene Code(s): I96 - GANGRENE, NOT ELSEWHERE CLASSIFIED Assessment/Plan Current Active Problems Cellulitis (Acute) Foot ulcer (Acute) Morbid obesity (Acute) left foot infection abscess diabetes mellitus hyperglycemia Abnormal Lab Results 02/20/17 02/20/17 06:00 06:00 WBC 19.0 H RBC 3.47 L Hgb 9.4 L Hct 28.5 L Plt Count 619 H Sodium 131 L Chloride 90 L Carbon Dioxide 33 H Random Glucose 176 H Calcium 8.4 L Laboratory Results - last 24 hr 02/19/17 02/20/17 02/20/17 16:43 06:00 06:00 WBC 19.0 H RBC 3.47 L Hgb 9.4 L Hct 28.5 L MCV 82.1 MCH 27.0 MCHC 32.9 RDW 14.2 Plt Count 619 H MPV 7.5 Sodium 131 L Potassium 4.7 Chloride 90 L Carbon Dioxide 33 H Anion Gap 8 BUN 13 D Creatinine 0.7 POC Glucometer 212 Random Glucose 176 H Calcium 8.4 L 02/20/17 02/20/17 02/20/17 06:14 12:01 17:35 WBC RBC Hgb Hct MCV MCH MCHC RDW Plt Count MPV Sodium Potassium Chloride Carbon Dioxide Anion Gap BUN Creatinine POC Glucometer 176 232 296 Random Glucose Calcium 02/20/17 20:48 WBC RBC Hgb Hct MCV MCH MCHC RDW Plt Count MPV Sodium Potassium Chloride Carbon Dioxide Anion Gap BUN Creatinine POC Glucometer 366 Random Glucose Calcium Current Medications Generic Name Dose Route Start Last Admin Trade Name Freq PRN Reason Stop Dose Admin Acetaminophen 325 mg 02/20/17 14:19 02/20/17 21:27 Tylenol - PO 02/24/17 23:59 325 mg Q6H PRN Administration PAIN Amlodipine Besylate 5 mg 02/21/17 10:00 Norvasc - PO DAILY [facility] Aspirin 81 mg 02/21/17 10:00 Ecotrin - PO DAILY [facility] Docusate Sodium 100 mg 02/20/17 22:00 Colace - PO BID PRN CONSTIPATION Heparin Sodium (Porcine) 5,000 unit 02/20/17 22:00 02/20/17 21:12 Heparin - SQ 5,000 unit BID [facility] Administration Hydrochlorothiazide 25 mg 02/20/17 22:00 02/20/17 21:12 Hctz - PO 25 mg BID [facility] Administration Vancomycin HCl 1,500 mg/ 500 mls @ 250 mls/hr 02/20/17 22:00 02/20/17 21:13 Dextrose IVPB 250 mls/hr BID [facility] Administration Piperacillin Sod/Tazobactam 100 mls @ 200 mls/hr 02/20/17 18:00 02/20/17 18:01 Sod 4.5 gm/ Dextrose IVPB 200 mls/hr Q8H-IV [facility] Administration Protocol Insulin Aspart 1 vial 02/20/17 16:30 02/20/17 21:13 Novolog Vial Sliding Scale - SQ 10 units ACHS [facility] Administration Protocol Insulin Detemir 30 units 02/21/17 07:00 Levemir Vial SQ AM [facility] Metformin HCl 1,000 mg 02/20/17 16:30 02/20/17 18:00 Glucophage - PO 1,000 mg BIDI [facility] Administration Metoprolol Succinate 25 mg 02/21/17 10:00 Toprol Xl - PO DAILY [facility] Oxycodone HCl 10 mg 02/20/17 14:19 02/20/17 21:27 Roxicodone - PO 10 mg Q4H PRN Administration PAIN Senna 1 tab 02/20/17 22:00 02/20/17 21:12 Senna - PO 1 tab BID [facility] Administration
[2017-02-21] MEDS ORDERED: PIPERACILLIN/TAZOBACTAM 4.5 GM VIAL IVPB ONE ×3 (00:53→16:58)
[2017-02-21] MEDS ORDERED: DEXTROSE 5%-WATER 100 ML IVPB ONE ×3 (00:53→16:58)
[2017-02-21] MEDS: PIPERACILLIN/TAZOB 4.5 GM 4.5 GM in DEXTROSE 5%-WATER 100 ML IVPB SCH ×3 (01:15→17:23)
[2017-02-21] MEDS ORDERED: INSULIN (NOVOLOG) ASPART 100 UNITS/ML 10ML VIAL ONE ×3 (05:40→22:34)
[2017-02-21] MEDS: ACETAMINOPHEN 325 MG TABLET (FP) PO PRN ×3 (06:06→23:17)
[2017-02-21] MEDS: oxyCODONE HCL 5 MG TABLET PO PRN ×3 (06:06→23:17)
[2017-02-21] MEDS: metFORMIN HCL 500 MG TABLET (FP) PO SCH ×2 (06:26→17:22)
[2017-02-21] MEDS: INSULIN SLIDING SCALE (NOVOLOG) 1 VIAL SQ SCH ×4 (06:26→23:00)
[2017-02-21] MEDS: INSULIN DETEMIR 100 UNITS/ML MDV SQ SCH (06:27)
[2017-02-21] MEDS ORDERED: PT OWN MED DRAWER 7, Y5N ONE (10:27)
[2017-02-21] MEDS: amLODIPine BESYLATE 5 MG TABLET (FP) PO SCH (10:39)
[2017-02-21] MEDS: HEPARIN NA (PORCINE) 5,000 UNITS/ML 1ML VIAL SQ SCH ×2 (10:39→23:00)
[2017-02-21] MEDS: METOPROLOL SUCCINATE 25 MG TAB.SR.24H (FP) PO SCH (10:39)
[2017-02-21] MEDS: ASPIRIN COATED 81 MG TABLET.EC PO SCH (10:40)
[2017-02-21] MEDS: SENNOSIDES 8.6MG TABLET (FP) PO SCH ×2 (10:40→23:00)
[2017-02-21] MEDS: HYDROCHLOROTHIAZIDE 25 MG TABLET (FP) PO SCH ×2 (10:40→23:00)
--- NOTE | 2017-02-21 10:43 | PN ---
Progress Note (short form) - Note Progress Note: Post op day#1.S/P Left foot debredment under [place] uneventful.Patient stable.No any anesthesia related problem.Patient DC from the anesthesia care.
[2017-02-21] MEDS: VANCOMYCIN 1,500 MG in DEXTROSE 5%-WATER - 500 ML IVPB SCH ×2 (11:30→22:51)
--- NOTE | 2017-02-21 13:15 | PN ---
Progress Note, Physician History of Present Illness: patient post op now says he has no complaints wound in dressing - Current Medication List Current Medications: Active Medications Acetaminophen (Tylenol -) 325 mg PO Q6H PRN PRN Reason: PAIN Stop: 02/24/17 23:59 Last Admin: 02/21/17 06:06 Dose: 325 mg Amlodipine Besylate (Norvasc -) 5 mg PO DAILY [facility] Last Admin: 02/21/17 10:39 Dose: 5 mg Aspirin (Ecotrin -) 81 mg PO DAILY [facility] Last Admin: 02/21/17 10:40 Dose: 81 mg Docusate Sodium (Colace -) 100 mg PO BID PRN PRN Reason: CONSTIPATION Heparin Sodium (Porcine) (Heparin -) 5,000 unit SQ BID [facility] Last Admin: 02/21/17 10:39 Dose: 5,000 unit Hydrochlorothiazide (Hctz -) 25 mg PO BID [facility] Last Admin: 02/21/17 10:40 Dose: 25 mg Vancomycin HCl 1,500 mg/ (Dextrose) 500 mls @ 250 mls/hr IVPB BID [facility] Last Admin: 02/20/17 21:13 Dose: 250 mls/hr Piperacillin Sod/Tazobactam (Sod 4.5 gm/ Dextrose) 100 mls @ 200 mls/hr IVPB Q8H-IV [facility] PRN Reason: Protocol Last Admin: 02/21/17 10:39 Dose: 200 mls/hr Insulin Aspart (Novolog Vial Sliding Scale -) 1 vial SQ ACHS [facility] PRN Reason: Protocol Last Admin: 02/21/17 06:26 Dose: 6 units Insulin Detemir (Levemir Vial) 30 units SQ AM [facility] Last Admin: 02/21/17 06:27 Dose: 30 units Metformin HCl (Glucophage -) 1,000 mg PO BIDI [facility] Last Admin: 02/21/17 06:26 Dose: 1,000 mg Metoprolol Succinate (Toprol Xl -) 25 mg PO DAILY [facility] Last Admin: 02/21/17 10:39 Dose: 25 mg Oxycodone HCl (Roxicodone -) 10 mg PO Q4H PRN PRN Reason: PAIN Last Admin: 02/21/17 06:06 Dose: 10 mg Senna (Senna -) 1 tab PO BID [facility] Last Admin: 02/21/17 10:40 Dose: 1 tab - Objective Vital Signs: Vital Signs Temperature 98 F 02/21/17 06:29 Pulse Rate 92 H 02/21/17 06:29 Respiratory Rate 18 02/21/17 06:29 Blood Pressure 143/64 02/21/17 06:29 O2 Sat by Pulse Oximetry (%) 96 02/20/17 20:23 Constitutional: Yes: No Distress, Calm Cardiovascular: Yes: Regular Rate and Rhythm Respiratory: Yes: Regular, CTA Bilaterally Gastrointestinal: Yes: Normal Bowel Sounds, Soft Musculoskeletal: Yes: Other Extremities: Yes: Other Wound/Incision: Yes: Dressing Dry and Intact Neurological: Yes: Alert, Oriented Psychiatric: Yes: Alert, Oriented Labs: CBC, BMP 02/20/17 06:00 02/20/17 06:00 Assessment/Plan osteo of the left foot abscess left foot cellulittis left foot gangrene left 5th toe dm leukocytosis fever plan continue current abx all cx results noted including bone cx will see what surgery wants to do down the road
[2017-02-21] MEDS: POLYETHYLENE GLYCOL 3350 119 GM BTL PO SCH (23:00)
[2017-02-21] MEDS: DOCUSATE SODIUM 100 MG CAPSULE (FP) PO SCH (23:46)
--- NOTE | 2017-02-22 01:17 | PN ---
Progress Note, Physician - Current Medication List Current Medications: Active Medications Acetaminophen (Tylenol -) 325 mg PO Q6H PRN PRN Reason: PAIN Stop: 02/24/17 23:59 Last Admin: 02/21/17 23:17 Dose: 325 mg Amlodipine Besylate (Norvasc -) 5 mg PO DAILY [facility] Last Admin: 02/21/17 10:39 Dose: 5 mg Aspirin (Ecotrin -) 81 mg PO DAILY [facility] Last Admin: 02/21/17 10:40 Dose: 81 mg Docusate Sodium (Colace -) 100 mg PO BID PRN PRN Reason: CONSTIPATION Docusate Sodium (Colace -) 300 mg PO HS [facility] Heparin Sodium (Porcine) (Heparin -) 5,000 unit SQ BID [facility] Last Admin: 02/21/17 23:00 Dose: 5,000 unit Hydrochlorothiazide (Hctz -) 25 mg PO BID [facility] Last Admin: 02/21/17 23:00 Dose: 25 mg Vancomycin HCl 1,500 mg/ (Dextrose) 500 mls @ 250 mls/hr IVPB BID [facility] Last Admin: 02/21/17 22:51 Dose: 250 mls/hr Piperacillin Sod/Tazobactam (Sod 4.5 gm/ Dextrose) 100 mls @ 200 mls/hr IVPB Q8H-IV [facility] PRN Reason: Protocol Last Admin: 02/21/17 17:23 Dose: 200 mls/hr Insulin Aspart (Novolog Vial Sliding Scale -) 1 vial SQ ACHS [facility] PRN Reason: Protocol Last Admin: 02/21/17 23:00 Dose: 6 units Insulin Detemir (Levemir Vial) 30 units SQ AM [facility] Last Admin: 02/21/17 06:27 Dose: 30 units Metformin HCl (Glucophage -) 1,000 mg PO BIDI [facility] Last Admin: 02/21/17 17:22 Dose: 1,000 mg Metoprolol Succinate (Toprol Xl -) 25 mg PO DAILY [facility] Last Admin: 02/21/17 10:39 Dose: 25 mg Oxycodone HCl (Roxicodone -) 10 mg PO Q4H PRN PRN Reason: PAIN Last Admin: 02/21/17 23:17 Dose: 10 mg Polyethylene Glycol (Miralax (For Daily Use) -) 17 gm PO DAILY [facility] Last Admin: 02/21/17 23:00 Dose: 17 gm Senna (Senna -) 1 tab PO BID [facility] Last Admin: 02/21/17 23:00 Dose: 1 tab - Objective Vital Signs: Vital Signs Temperature 97.9 F 02/21/17 22:00 Pulse Rate 73 02/21/17 22:00 Respiratory Rate 20 02/21/17 22:00 Blood Pressure 129/64 02/21/17 22:00 O2 Sat by Pulse Oximetry (%) 100 02/21/17 09:00 Labs: CBC, BMP 02/20/17 06:00 02/20/17 06:00 Problem List - Problems (1) Foot ulcer Code(s): L97.509 - NON-PRESSURE CHRONIC ULCER OTH PRT UNSP FOOT W UNSP SEVERITY (2) Diabetes Code(s): E11.9 - TYPE 2 DIABETES MELLITUS WITHOUT COMPLICATIONS Qualifiers: Diabetes mellitus type: other specified (including LASHAY) Diabetes mellitus complication status: with hyperglycemia Diabetes mellitus retirement insulin use: unspecified salvage determiner insulin use status Qualified Code (s): E13.65 - Other specified diabetes mellitus with hyperglycemia (3) HTN (hypertension) Code(s): I10 - ESSENTIAL (PRIMARY) HYPERTENSION (4) Morbid obesity Code(s): E66.01 - MORBID (SEVERE) OBESITY DUE TO EXCESS CALORIES
[2017-02-22] MEDS ORDERED: PIPERACILLIN/TAZOBACTAM 4.5 GM VIAL IVPB ONE ×3 (01:24→17:10)
[2017-02-22] MEDS ORDERED: DEXTROSE 5%-WATER 100 ML IVPB ONE ×2 (01:25→09:15)
[2017-02-22] MEDS: PIPERACILLIN/TAZOB 4.5 GM 4.5 GM in DEXTROSE 5%-WATER 100 ML IVPB SCH ×2 (01:46→09:41)
[2017-02-22] MEDS: metFORMIN HCL 500 MG TABLET (FP) PO SCH ×2 (06:24→18:09)
[2017-02-22] MEDS: INSULIN DETEMIR 100 UNITS/ML MDV SQ SCH (06:24)
[2017-02-22] MEDS: INSULIN SLIDING SCALE (NOVOLOG) 1 VIAL SQ SCH ×4 (06:25→23:01)
[2017-02-22] MEDS: oxyCODONE HCL 5 MG TABLET PO PRN ×3 (09:54→23:23)
[2017-02-22] MEDS: ACETAMINOPHEN 325 MG TABLET (FP) PO PRN ×2 (09:55→23:24)
[2017-02-22] MEDS: HYDROCHLOROTHIAZIDE 25 MG TABLET (FP) PO SCH ×2 (09:57→22:59)
[2017-02-22] MEDS: ASPIRIN COATED 81 MG TABLET.EC PO SCH (09:57)
[2017-02-22] MEDS: SENNOSIDES 8.6MG TABLET (FP) PO SCH ×2 (10:00→23:00)
[2017-02-22] MEDS: amLODIPine BESYLATE 5 MG TABLET (FP) PO SCH (10:00)
[2017-02-22] MEDS: POLYETHYLENE GLYCOL 3350 119 GM BTL PO SCH (10:00)
[2017-02-22] MEDS: METOPROLOL SUCCINATE 25 MG TAB.SR.24H (FP) PO SCH (10:00)
[2017-02-22] MEDS: HEPARIN NA (PORCINE) 5,000 UNITS/ML 1ML VIAL SQ SCH ×2 (10:01→22:59)
--- NOTE | 2017-02-22 10:22 | PN ---
Progress Note (short form) - Note Progress Note: Podiatry POD # 2 ( 2nd I&D ) Patient seen at bedside in NAD, A/A/Ax 3, states he feels better. Denies SOB, Calf pain or Chest Pains. Vital Signs Period Temp Pulse Resp BP Sys/Mclaughlin Pulse Ox Last 24 Hr 97.9 F-98.9 F 63-88 18-20 118-147/63-72 99 Left foot: Dressing cleAn dry intact. Upon removal no mal odor. + minimal drainge from the Peroneal tendons, no drainage form Ant tibial or 1st Inter- space site. Wounds red and beefy, no mal odor no cellulitis Peroneal tendon area mild until BRB seen 3rd toe variability questionable, distal aspect gangrenous, however toe is warm with evidence of Capillary re-fill A/P 1) Tunnelled Cath/ Iv Abx as per ID 2) Continue Abx 3) Will re-asses in 48 hours 4) Awaiting new labs, clinically foot looks much better, prognosis still guarded however it is trending towards salvage, if this trend continues, in 48hrs will consider VAC application 5) All notes read & appreciated 6) All other co-morbidities as per medical team 7) Will follow up in 48 hours for new dressing change 8) PATIENT EDUCATED TO KEEP LEG/FOOT IN DEPENDANT POSITION MUCH POSSIBLE TO ALLOW FOR DRAINAGE. HE DEMONSTRATED VERBAL UNDERSTANDING
[2017-02-22] MEDS: VANCOMYCIN 1,500 MG in DEXTROSE 5%-WATER - 500 ML IVPB SCH (11:11)
[2017-02-22] MEDS ORDERED: INSULIN (NOVOLOG) ASPART 100 UNITS/ML 10ML VIAL ONE (11:35)
--- NOTE | 2017-02-22 11:49 | OP ---
DATE OF OPERATION: 02/20/2017 SURGEON: Scarlet Richter DPM PROCEDURE: Incision and drainage of deep abscess, left foot, with debridement of necrotic tissue, 1st interspace, left foot. POSTOPERATIVE DIAGNOSIS: Same with deep infection along the Peroneal and Anterior Tib tendon. INDICATIONS FOR THE PROCEDURE: Patient is a pleasant 56-year-old male who presented to [facility] evening with painful swollen left foot. Patient was taken to the operating room for incision and drainage that evening. Over the weekend, the patient developed complications and increased pain and swelling. The patient was explained the need for further incision and drainage as the infection had spread more proximally up his leg. All the risks, benefits, and alternatives were discussed. No guarantees were given or implied. After the patient's questions were answered to his satisfaction, consent was obtained. Patient was met in the holding area today. Again, the procedure was discussed with the patient. The surgical site was marked with my initials. The patient was then transported to the operating room. PROCEDURE: The patient was placed on the operating room table in the supine position in a good anatomic alignment with all bony prominences padded well. Timeout was called to identify the patient, the nature of the procedure, and the proper extremity to be operated on. Once confirmed, an LMA was passed by the anesthesiologist. The left foot was then prepped and draped in the usual sterile manner. Attention was then directed to the lateral aspect of the left foot where along the peroneal tendons purulent drainage was noted. Utilizing sharp dissection, the peroneal tendon tract was opened up just past the ankle. Attention was then directed to the 1st interspace where a deep incision was made down to the level of the bone. This area showed necrotic tissue with purulence. All nonviable tissue was excised using sharp and blunt dissection with a No. 10 blade as well as a rongeur. Deep tissue and bone were excised. Attention was then directed to the tibialis anterior tract where purulence was noted. The incision was made along the tibialis anterior just proximal to the ankle area all the way down to the foot. This area was opened up. Purulence was noted. The leg was then milked from the tibial tuberosity down in order to express any purulent drainage. After several attempts, no purulent drainage was noted. In the 1st interspace, there was noted to be leuko fascial necrosis of all the soft tissue. The specimens were sent to Pathology for both gross and microscopic examination. No intraoperative cultures were taken today since they were taken on Saturday. The area was then flushed with copious amounts of sterile saline. The area was then packed with Iodoform gauze, dry sterile gauze, ABD pads, Kerlix, and Kali. Patient tolerated all aspects of the procedure and anesthesia well. Was transported to the postanesthesia care unit, vital signs stable, in no apparent distress. The plan for this patient will be local wound care with a VAC in 48 hours. PICC line. Outpatient hyperbaric oxygen. SCARLET RICHTER DPM [id number] MTDD
--- NOTE | 2017-02-22 13:37 | PN ---
Progress Note, Physician History of Present Illness: patient stable draining thro the dressing has remianed afebrile last wbc had increased - Current Medication List Current Medications: Active Medications Acetaminophen (Tylenol -) 325 mg PO Q6H PRN PRN Reason: PAIN Stop: 02/24/17 23:59 Last Admin: 02/22/17 09:55 Dose: 325 mg Amlodipine Besylate (Norvasc -) 5 mg PO DAILY [facility] Last Admin: 02/22/17 10:00 Dose: 5 mg Aspirin (Ecotrin -) 81 mg PO DAILY [facility] Last Admin: 02/22/17 09:57 Dose: 81 mg Docusate Sodium (Colace -) 100 mg PO BID PRN PRN Reason: CONSTIPATION Docusate Sodium (Colace -) 300 mg PO HS [facility] Last Admin: 02/21/17 23:46 Dose: 300 mg Heparin Sodium (Porcine) (Heparin -) 5,000 unit SQ BID [facility] Last Admin: 02/22/17 10:01 Dose: 5,000 unit Hydrochlorothiazide (Hctz -) 25 mg PO BID [facility] Last Admin: 02/22/17 09:57 Dose: 25 mg Vancomycin HCl 1,500 mg/ (Dextrose) 500 mls @ 250 mls/hr IVPB BID [facility] Last Admin: 02/22/17 11:11 Dose: 250 mls/hr Piperacillin Sod/Tazobactam (Sod 4.5 gm/ Dextrose) 100 mls @ 200 mls/hr IVPB Q8H-IV [facility] PRN Reason: Protocol Last Admin: 02/22/17 09:41 Dose: 200 mls/hr Insulin Aspart (Novolog Vial Sliding Scale -) 1 vial SQ ACHS [facility] PRN Reason: Protocol Last Admin: 02/22/17 11:37 Dose: 4 units Insulin Detemir (Levemir Vial) 30 units SQ AM [facility] Last Admin: 02/22/17 06:24 Dose: 30 units Metformin HCl (Glucophage -) 1,000 mg PO BIDI [facility] Last Admin: 02/22/17 06:24 Dose: 1,000 mg Metoprolol Succinate (Toprol Xl -) 25 mg PO DAILY [facility] Last Admin: 02/22/17 10:00 Dose: 25 mg Oxycodone HCl (Roxicodone -) 10 mg PO Q4H PRN PRN Reason: PAIN Last Admin: 02/22/17 09:54 Dose: 10 mg Polyethylene Glycol (Miralax (For Daily Use) -) 17 gm PO DAILY [facility] Last Admin: 02/22/17 10:00 Dose: 17 gm Senna (Senna -) 1 tab PO BID [facility] Last Admin: 02/22/17 10:00 Dose: 1 tab - Objective Vital Signs: Vital Signs Temperature 98.9 F 02/22/17 09:49 Pulse Rate 88 02/22/17 09:49 Respiratory Rate 20 02/22/17 09:49 Blood Pressure 147/68 02/22/17 09:49 O2 Sat by Pulse Oximetry (%) 99 02/21/17 21:00 Constitutional: Yes: No Distress, Calm Cardiovascular: Yes: Regular Rate and Rhythm Respiratory: Yes: Regular, CTA Bilaterally Gastrointestinal: Yes: Normal Bowel Sounds, Soft Musculoskeletal: Yes: Other Extremities: Yes: Other Wound/Incision: Yes: Draining, Other Neurological: Yes: Alert, Oriented Psychiatric: Yes: Alert, Oriented Labs: CBC, BMP 02/20/17 06:00 02/20/17 06:00 Assessment/Plan osteo of the left foot abscess left foot cellulittis left foot gangrene left 5th toe dm leukocytosis fever plan continue current abx repeat blood cx ordered repeat wbc to be seen as they have increased continue current mgmt will decide after the repeat blood cx and wbc where the patient is going will check vanco trough
--- NOTE | 2017-02-22 14:13 | PATH ---
Surgical Pathology Report Patient Name: CLEMENTE WATSON Med. Rec. #: [id number] /Age/Gender: 1960 (Age: 56) / M Account: [id number] Location: [facility] MED/SURG Taken: 02/20/2017 Received: 02/21/2017 Reported: 02/22/2017 Physicians: MAGGIE Cunningham M.D. Specimen(s) Received DEBRIDED TISSUE Clinical History Abscess left foot Final Diagnosis SKIN AND SOFT TISSUE, LEFT FOOT, DEBRIDEMENT: SKIN WITH ULCERATION, AND GANGRENOUS NECROSIS OF ATTACHED SOFT TISSUE. Electronically Signed Ervin Wharton M.D. Gross Description Received in formalin labeled "debrided tissue left foot," is an 11.5 x 9.5 x 1.0 cm aggregate of ellington arauz, necrotic portions of skin and soft tissue. A account maintenance representative portion is submitted in one cassette. /02/21/201702/21/2017
[2017-02-22] MEDS ORDERED: SODIUM CHLORIDE 100 ML IVPB ONE (17:11)
[2017-02-22] MEDS: PIPERACILLIN/TAZOB 4.5 GM 4.5 GM in SODIUM CHLORIDE 100 ML IVPB SCH (18:54)
[2017-02-22] MEDS: DOCUSATE SODIUM 100 MG CAPSULE (FP) PO SCH (22:58)
[2017-02-22] MEDS: VANCOMYCIN 1,500 MG in SODIUM CHLORIDE 500 ML IVPB SCH (23:00)
--- NOTE | 2017-02-22 23:51 | PN ---
Progress Note, Physician - Current Medication List Current Medications: Active Medications Acetaminophen (Tylenol -) 325 mg PO Q6H PRN PRN Reason: PAIN Stop: 02/24/17 23:59 Last Admin: 02/22/17 23:24 Dose: 325 mg Amlodipine Besylate (Norvasc -) 5 mg PO DAILY [facility] Last Admin: 02/22/17 10:00 Dose: 5 mg Aspirin (Ecotrin -) 81 mg PO DAILY [facility] Last Admin: 02/22/17 09:57 Dose: 81 mg Docusate Sodium (Colace -) 100 mg PO BID PRN PRN Reason: CONSTIPATION Docusate Sodium (Colace -) 300 mg PO HS [facility] Last Admin: 02/22/17 22:58 Dose: 300 mg Heparin Sodium (Porcine) (Heparin -) 5,000 unit SQ BID [facility] Last Admin: 02/22/17 22:59 Dose: 5,000 unit Hydrochlorothiazide (Hctz -) 25 mg PO BID [facility] Last Admin: 02/22/17 22:59 Dose: 25 mg Piperacillin Sod/Tazobactam (Sod 4.5 gm/ Sodium Chloride) 100 mls @ 200 mls/hr IVPB Q8H-IV [facility] PRN Reason: Protocol Stop: 02/27/17 10:29 Last Admin: 02/22/17 18:54 Dose: 200 mls/hr Vancomycin HCl 1,500 mg/ (Sodium Chloride) 500 mls @ 250 mls/hr IVPB BID [facility] Last Admin: 02/22/17 23:00 Dose: 250 mls/hr Insulin Aspart (Novolog Vial Sliding Scale -) 1 vial SQ ACHS [facility] PRN Reason: Protocol Last Admin: 02/22/17 23:01 Dose: 4 units Insulin Detemir (Levemir Vial) 30 units SQ AM [facility] Last Admin: 02/22/17 06:24 Dose: 30 units Metformin HCl (Glucophage -) 1,000 mg PO BIDI [facility] Last Admin: 02/22/17 18:09 Dose: 1,000 mg Metoprolol Succinate (Toprol Xl -) 25 mg PO DAILY [facility] Last Admin: 02/22/17 10:00 Dose: 25 mg Oxycodone HCl (Roxicodone -) 10 mg PO Q4H PRN PRN Reason: PAIN Last Admin: 02/22/17 23:23 Dose: 10 mg Polyethylene Glycol (Miralax (For Daily Use) -) 17 gm PO DAILY [facility] Last Admin: 02/22/17 10:00 Dose: 17 gm Senna (Senna -) 1 tab PO BID [facility] Last Admin: 02/22/17 23:00 Dose: 1 tab - Objective Vital Signs: Vital Signs Temperature 72 F L 02/22/17 18:46 Pulse Rate 72 02/22/17 18:46 Respiratory Rate 20 02/22/17 18:46 Blood Pressure 135/68 02/22/17 18:46 O2 Sat by Pulse Oximetry (%) 100 02/22/17 09:00 Labs: CBC, BMP 02/20/17 06:00 02/20/17 06:00 Problem List - Problems (1) Foot ulcer Code(s): L97.509 - NON-PRESSURE CHRONIC ULCER OTH PRT UNSP FOOT W UNSP SEVERITY (2) Diabetes Code(s): E11.9 - TYPE 2 DIABETES MELLITUS WITHOUT COMPLICATIONS Qualifiers: Diabetes mellitus type: other specified (including LASHAY) Diabetes mellitus complication status: with hyperglycemia Diabetes mellitus alf insulin use: unspecified alf insulin use status Qualified Code (s): E13.65 - Other specified diabetes mellitus with hyperglycemia (3) HTN (hypertension) Code(s): I10 - ESSENTIAL (PRIMARY) HYPERTENSION (4) Morbid obesity Code(s): E66.01 - MORBID (SEVERE) OBESITY DUE TO EXCESS CALORIES
[2017-02-23] MEDS ORDERED: SODIUM CHLORIDE 100 ML IVPB ONE ×3 (02:17→17:07)
[2017-02-23] MEDS ORDERED: PIPERACILLIN/TAZOBACTAM 4.5 GM VIAL IVPB ONE ×3 (02:17→17:07)
[2017-02-23] MEDS: PIPERACILLIN/TAZOB 4.5 GM 4.5 GM in SODIUM CHLORIDE 100 ML IVPB SCH ×3 (02:27→17:15)
[2017-02-23] MEDS: metFORMIN HCL 500 MG TABLET (FP) PO SCH ×2 (06:17→17:15)
[2017-02-23] MEDS: INSULIN DETEMIR 100 UNITS/ML MDV SQ SCH (06:18)
[2017-02-23] MEDS: INSULIN SLIDING SCALE (NOVOLOG) 1 VIAL SQ SCH ×4 (06:20→21:18)
[2017-02-23] MEDS ORDERED: INSULIN (NOVOLOG) ASPART 100 UNITS/ML 10ML VIAL ONE ×3 (06:33→21:11)
[2017-02-23 07:27] LABS: MCH 27.4 pg (25.7-33.7); MCHC 33.1 g/dl (32.0-35.9); MEAN CELL VOLUME 82.7 fl (80-96); MEAN PLT VOLUME 7.3 fl (7.5-11.1); PLATELET COUNT 761 K/MM3 (134-434); RDW 14.3 % (11.9-15.9); WHITE BLOOD COUNT 13.9 K/mm3 (4.0-10.0)
[2017-02-23 07:58] LABS: ANION GAP 8 (8-16); CALCIUM 8.6 mg/dL (8.5-10.1); CO2 31 mmol/L (21-32); GLUCOSE,RANDOM 166 mg/dL (74-106)
[2017-02-23 07:59] LABS: CREATININE 0.8 mg/dL (0.7-1.3)
[2017-02-23] MEDS: METOPROLOL SUCCINATE 25 MG TAB.SR.24H (FP) PO SCH (09:24)
[2017-02-23] MEDS: SENNOSIDES 8.6MG TABLET (FP) PO SCH ×2 (09:24→21:18)
[2017-02-23] MEDS: HYDROCHLOROTHIAZIDE 25 MG TABLET (FP) PO SCH ×2 (09:24→21:17)
[2017-02-23] MEDS: ASPIRIN COATED 81 MG TABLET.EC PO SCH (09:24)
[2017-02-23] MEDS: amLODIPine BESYLATE 5 MG TABLET (FP) PO SCH (09:24)
[2017-02-23] MEDS: POLYETHYLENE GLYCOL 3350 119 GM BTL PO SCH (09:26)
[2017-02-23] MEDS: HEPARIN NA (PORCINE) 5,000 UNITS/ML 1ML VIAL SQ SCH ×2 (09:26→21:34)
[2017-02-23] MEDS: oxyCODONE HCL 5 MG TABLET PO PRN (09:29)
[2017-02-23] MEDS: ACETAMINOPHEN 325 MG TABLET (FP) PO PRN ×2 (09:29→21:17)
[2017-02-23] MEDS: VANCOMYCIN 1,500 MG in SODIUM CHLORIDE 500 ML IVPB SCH ×2 (10:15→21:21)
--- NOTE | 2017-02-23 12:25 | PN ---
Progress Note, Physician History of Present Illness: patient still with foul smelling drainage seeping thro the dressing wbc trending down - Current Medication List Current Medications: Active Medications Acetaminophen (Tylenol -) 325 mg PO Q6H PRN PRN Reason: PAIN Stop: 02/24/17 23:59 Last Admin: 02/23/17 09:29 Dose: 325 mg Amlodipine Besylate (Norvasc -) 5 mg PO DAILY [facility] Last Admin: 02/23/17 09:24 Dose: 5 mg Aspirin (Ecotrin -) 81 mg PO DAILY [facility] Last Admin: 02/23/17 09:24 Dose: 81 mg Docusate Sodium (Colace -) 100 mg PO BID PRN PRN Reason: CONSTIPATION Docusate Sodium (Colace -) 300 mg PO HS [facility] Last Admin: 02/22/17 22:58 Dose: 300 mg Heparin Sodium (Porcine) (Heparin -) 5,000 unit SQ BID [facility] Last Admin: 02/23/17 09:26 Dose: 5,000 unit Hydrochlorothiazide (Hctz -) 25 mg PO BID [facility] Last Admin: 02/23/17 09:24 Dose: 25 mg Piperacillin Sod/Tazobactam (Sod 4.5 gm/ Sodium Chloride) 100 mls @ 200 mls/hr IVPB Q8H-IV [facility] PRN Reason: Protocol Stop: 02/27/17 10:29 Last Admin: 02/23/17 09:25 Dose: 200 mls/hr Vancomycin HCl 1,500 mg/ (Sodium Chloride) 500 mls @ 250 mls/hr IVPB BID [facility] Last Admin: 02/23/17 10:15 Dose: 250 mls/hr Insulin Aspart (Novolog Vial Sliding Scale -) 1 vial SQ ACHS [facility] PRN Reason: Protocol Last Admin: 02/23/17 11:44 Dose: 4 units Insulin Detemir (Levemir Vial) 30 units SQ AM [facility] Last Admin: 02/23/17 06:18 Dose: 30 units Metformin HCl (Glucophage -) 1,000 mg PO BIDI [facility] Last Admin: 02/23/17 06:17 Dose: 1,000 mg Metoprolol Succinate (Toprol Xl -) 25 mg PO DAILY [facility] Last Admin: 02/23/17 09:24 Dose: 25 mg Oxycodone HCl (Roxicodone -) 10 mg PO Q4H PRN PRN Reason: PAIN Last Admin: 02/23/17 09:29 Dose: 10 mg Polyethylene Glycol (Miralax (For Daily Use) -) 17 gm PO DAILY [facility] Last Admin: 02/23/17 09:26 Dose: Not Given Senna (Senna -) 1 tab PO BID [facility] Last Admin: 02/23/17 09:24 Dose: 1 tab - Objective Vital Signs: Vital Signs Temperature 98.6 F 02/23/17 09:41 Pulse Rate 90 02/23/17 09:41 Respiratory Rate 20 02/23/17 09:41 Blood Pressure 145/78 02/23/17 09:41 O2 Sat by Pulse Oximetry (%) 96 02/22/17 21:00 Constitutional: Yes: No Distress, Calm Respiratory: Yes: Regular, CTA Bilaterally Gastrointestinal: Yes: Normal Bowel Sounds, Soft Musculoskeletal: Yes: Other Extremities: Yes: Other Wound/Incision: Yes: Draining, Other Neurological: Yes: Alert, Oriented Psychiatric: Yes: Alert, Oriented Labs: CBC, BMP 02/23/17 06:00 02/23/17 06:00 Assessment/Plan osteo of the left foot abscess left foot cellulittis left foot gangrene left 5th toe dm leukocytosis fever plan continue current abx blood cx repeat awaited wbc trending down rest as per primary
[2017-02-23] MEDS: DOCUSATE SODIUM 100 MG CAPSULE (FP) PO SCH (21:16)
[2017-02-23] MEDS ORDERED: PT OWN MED DRAWER 7, Y5N ONE (21:20)
--- NOTE | 2017-02-23 23:47 | PN ---
Progress Note, Physician - Current Medication List Current Medications: Active Medications Acetaminophen (Tylenol -) 325 mg PO Q6H PRN PRN Reason: PAIN Stop: 02/24/17 23:59 Last Admin: 02/23/17 21:17 Dose: 325 mg Amlodipine Besylate (Norvasc -) 5 mg PO DAILY [facility] Last Admin: 02/23/17 09:24 Dose: 5 mg Aspirin (Ecotrin -) 81 mg PO DAILY [facility] Last Admin: 02/23/17 09:24 Dose: 81 mg Docusate Sodium (Colace -) 100 mg PO BID PRN PRN Reason: CONSTIPATION Docusate Sodium (Colace -) 300 mg PO HS [facility] Last Admin: 02/23/17 21:16 Dose: 300 mg Heparin Sodium (Porcine) (Heparin -) 5,000 unit SQ BID [facility] Last Admin: 02/23/17 21:34 Dose: 5,000 unit Hydrochlorothiazide (Hctz -) 25 mg PO BID [facility] Last Admin: 02/23/17 21:17 Dose: 25 mg Piperacillin Sod/Tazobactam (Sod 4.5 gm/ Sodium Chloride) 100 mls @ 200 mls/hr IVPB Q8H-IV [facility] PRN Reason: Protocol Stop: 02/27/17 10:29 Last Admin: 02/23/17 17:15 Dose: 200 mls/hr Vancomycin HCl 1,500 mg/ (Sodium Chloride) 500 mls @ 250 mls/hr IVPB BID [facility] Last Admin: 02/23/17 21:21 Dose: 250 mls/hr Insulin Aspart (Novolog Vial Sliding Scale -) 1 vial SQ ACHS [facility] PRN Reason: Protocol Last Admin: 02/23/17 21:18 Dose: 4 units Insulin Detemir (Levemir Vial) 30 units SQ AM [facility] Last Admin: 02/23/17 06:18 Dose: 30 units Metformin HCl (Glucophage -) 1,000 mg PO BIDI [facility] Last Admin: 02/23/17 17:15 Dose: 1,000 mg Metoprolol Succinate (Toprol Xl -) 25 mg PO DAILY [facility] Last Admin: 02/23/17 09:24 Dose: 25 mg Polyethylene Glycol (Miralax (For Daily Use) -) 17 gm PO DAILY [facility] Last Admin: 02/23/17 09:26 Dose: Not Given Senna (Senna -) 1 tab PO BID [facility] Last Admin: 02/23/17 21:18 Dose: 1 tab - Objective Vital Signs: Vital Signs Temperature 99.4 F 02/23/17 20:02 Pulse Rate 86 02/23/17 20:02 Respiratory Rate 20 02/23/17 20:02 Blood Pressure 149/78 02/23/17 20:02 O2 Sat by Pulse Oximetry (%) 97 02/23/17 20:03 Labs: CBC, BMP 02/23/17 06:00 02/23/17 06:00 Problem List - Problems (1) Foot ulcer Code(s): L97.509 - NON-PRESSURE CHRONIC ULCER OTH PRT UNSP FOOT W UNSP SEVERITY (2) Diabetes Code(s): E11.9 - TYPE 2 DIABETES MELLITUS WITHOUT COMPLICATIONS Qualifiers: Diabetes mellitus type: other specified (including LASHAY) Diabetes mellitus complication status: with hyperglycemia Diabetes mellitus long-term insulin use: unspecified long-term insulin use status Qualified Code (s): E13.65 - Other specified diabetes mellitus with hyperglycemia (3) HTN (hypertension) Code(s): I10 - ESSENTIAL (PRIMARY) HYPERTENSION (4) Morbid obesity Code(s): E66.01 - MORBID (SEVERE) OBESITY DUE TO EXCESS CALORIES
[2017-02-24] MEDS ORDERED: PIPERACILLIN/TAZOBACTAM 4.5 GM VIAL IVPB ONE ×3 (01:05→15:34)
[2017-02-24] MEDS: PIPERACILLIN/TAZOB 4.5 GM 4.5 GM in SODIUM CHLORIDE 100 ML IVPB SCH ×3 (01:46→17:18)
[2017-02-24] MEDS: INSULIN SLIDING SCALE (NOVOLOG) 1 VIAL SQ SCH ×4 (06:02→21:52)
[2017-02-24] MEDS: INSULIN DETEMIR 100 UNITS/ML MDV SQ SCH (06:03)
[2017-02-24] MEDS: metFORMIN HCL 500 MG TABLET (FP) PO SCH ×2 (06:03→17:18)
[2017-02-24] MEDS ORDERED: SODIUM CHLORIDE 100 ML IVPB ONE ×2 (08:47→15:34)
[2017-02-24] MEDS: oxyCODONE HCL 5 MG TABLET PO PRN ×2 (08:52→21:53)
[2017-02-24] MEDS: ACETAMINOPHEN 325 MG TABLET (FP) PO PRN ×2 (08:52→21:54)
[2017-02-24] MEDS: SENNOSIDES 8.6MG TABLET (FP) PO SCH ×3 (08:59→21:59)
[2017-02-24] MEDS: METOPROLOL SUCCINATE 25 MG TAB.SR.24H (FP) PO SCH (08:59)
[2017-02-24] MEDS: HYDROCHLOROTHIAZIDE 25 MG TABLET (FP) PO SCH ×2 (08:59→21:54)
[2017-02-24] MEDS: amLODIPine BESYLATE 5 MG TABLET (FP) PO SCH (09:00)
[2017-02-24] MEDS: POLYETHYLENE GLYCOL 3350 119 GM BTL PO SCH (09:00)
[2017-02-24] MEDS: HEPARIN NA (PORCINE) 5,000 UNITS/ML 1ML VIAL SQ SCH ×2 (09:00→21:54)
[2017-02-24] MEDS: ASPIRIN COATED 81 MG TABLET.EC PO SCH (09:00)
[2017-02-24] MEDS: VANCOMYCIN 1,500 MG in SODIUM CHLORIDE 500 ML IVPB SCH (09:37)
--- NOTE | 2017-02-24 10:41 | PN ---
Progress Note (short form) - Note Progress Note: Podiatry POD # 4 ( 2nd I&D ) Patient seen at bedside in NAD, A/A/Ox 3, states he feels better. Denies SOB, Calf pain or Chest Pains. Vital Signs Period Temp Pulse Resp BP Sys/[place] Pulse Ox Last 24 Hr 98.5 F-99.4 F 86-105 18-20 148-159/75-89 97-99 Laboratory Last Values WBC 13.9 K/mm3 (4.0-10.0) H 02/23/17 06:00 RBC 3.14 M/mm3 (4.00-5.60) L 02/23/17 06:00 Hgb 8.6 GM/dL (11.7-16.9) L 02/23/17 06:00 Hct 26.0 % (35.4-49) L 02/23/17 06:00 MCV 82.7 fl (80-96) 02/23/17 06:00 MCH 27.4 pg (25.7-33.7) 02/23/17 06:00 MCHC 33.1 g/dl (32.0-35.9) 02/23/17 06:00 RDW 14.3 % (11.9-15.9) 02/23/17 06:00 Plt Count 761 K/MM3 (134-434) H D 02/23/17 06:00 MPV 7.3 fl (7.5-11.1) L 02/23/17 06:00 Neutrophils % 83.1 % (42.8-82.8) H D 02/18/17 06:30 Lymphocytes % 11.5 % (8-40) D 02/18/17 06:30 Monocytes % 4.5 % (3.8-10.2) D 02/18/17 06:30 Eosinophils % 0.2 % (0-4.5) D 02/18/17 06:30 Basophils % 0.7 % (0-2.0) D 02/18/17 06:30 Band Neutrophils 23.0 % (0-10) H D 02/16/17 06:35 Differential Comment Manual diff done 02/16/17 06:35 Platelet Estimate Adequate (NORMAL) 02/16/17 06:35 VBG pH 7.40 (7.32-7.42) 02/15/17 11:18 POC VBG pCO2 49.4 mmHg (38-52) 02/15/17 11:18 POC VBG pO2 23.3 mmHg (28-48) L 02/15/17 11:18 Mixed VBG HCO3 30.1 meq/L (19-25) H 02/15/17 11:18 Sodium 132 mmol/L (136-145) L 02/23/17 06:00 Potassium 5.0 mmol/L (3.5-5.1) 02/23/17 06:00 Chloride 93 mmol/L (98-107) L 02/23/17 06:00 Carbon Dioxide 31 mmol/L (21-32) 02/23/17 06:00 Anion Gap 8 (8-16) 02/23/17 06:00 BUN 20 mg/dL (7-18) H D 02/23/17 06:00 Creatinine 0.8 mg/dL (0.7-1.3) 02/23/17 06:00 Creat Clearance w eGFR > 60 (>60) 02/18/17 06:30 POC Glucometer 235 UNITS (()) 02/23/17 21:04 Random Glucose 166 mg/dL (74-106) H 02/23/17 06:00 Hemoglobin A1c % 10.8 % (4.8-6.0) H 02/18/17 06:00 Lactic Acid 1.6 mmol/L (0.4-2.0) 02/16/17 06:35 Calcium 8.6 mg/dL (8.5-10.1) 02/23/17 06:00 Total Bilirubin 0.3 mg/dL (0.2-1.0) D 02/18/17 06:30 AST 17 U/L (15-37) 02/18/17 06:30 ALT 15 U/L (12-78) 02/18/17 06:30 Alkaline Phosphatase 131 U/L (45-117) H 02/18/17 06:30 Creatine Kinase 112 IU/L (39-308) 02/15/17 11:05 Troponin I < 0.02 ng/ml (0.00-0.05) 02/15/17 11:05 Total Protein 6.1 g/dl (6.4-8.2) L 02/18/17 06:30 Albumin 1.7 g/dl (3.4-5.0) L 02/18/17 06:30 Urine Color Yellow 02/15/17 16:00 Urine Appearance Clear 02/15/17 16:00 Urine pH 5.0 (5.0-8.0) 02/15/17 16:00 Ur Specific [place] 1.010 (1.005-1.025) 02/15/17 16:00 Urine Protein 1+ (NEGATIVE) H 02/15/17 16:00 Urine Glucose (UA) 3+ (NEGATIVE) H 02/15/17 16:00 Urine Ketones Negative (NEGATIVE) 02/15/17 16:00 Urine Blood 1+ (NEGATIVE) H 02/15/17 16:00 Urine Nitrite Negative (NEGATIVE) 02/15/17 16:00 Urine Bilirubin Negative (NEGATIVE) 02/15/17 16:00 Urine Urobilinogen 2.0 e.u/dl E.U./dl (0.2-1.0) 02/15/17 16:00 Ur Leukocyte Esterase Negative (NEGATIVE) 02/15/17 16:00 Urine RBC 17 /hpf (0-3) 02/15/17 16:00 Urine WBC 6 /hpf (3-5) 02/15/17 16:00 Vancomycin Pre-Dose 16.015 ug/ml (5.0-10.0) H* D 02/22/17 09:50 Blood Type O POSITIVE 02/15/17 10:26 Antibody Screen Negative 02/15/17 10:26 Left foot: Dressing clean dry intact. Upon removal no mal odor. + minimal drainge from the Peroneal tendons, no drainage form Ant tibial or 1st Inter- space site. Wounds red and beefy, no mal odor no cellulitis Peroneal tendon area milked until BRB seen. Swelling has decreased signfigantly 3rd toe variability questionable, distal aspect gangrenous, however toe is warm with evidence of Capillary re-fill A/P 1) Tunnelled Cath/ Iv Abx as per ID 2) Continue Abx 3) Will re-asses in 48 hours 4) WBC trending downward as i would suspect, clinically foot looks much better, prognosis still guarded however it is trending towards salvage, if this trend continues , in 24-48 hrs will consider VAC application 5) All notes read & appreciated 6) All other co-morbidities as per medical team 7) Will follow up in 48 hours for new dressing change 8) Will most likely need future debridements, but most likely will be able to do on an out patient basis 8) ONCE AGAIN PATIENT EDUCATED TO KEEP LEG/FOOT IN DEPENDANT POSITION MUCH POSSIBLE TO ALLOW FOR DRAINAGE. HE DEMONSTRATED VERBAL UNDERSTANDING
[2017-02-24] MEDS ORDERED: INSULIN (NOVOLOG) ASPART 100 UNITS/ML 10ML VIAL ONE ×2 (11:43→21:43)
--- NOTE | 2017-02-24 12:31 | PN ---
Progress Note, Physician History of Present Illness: patient stable doing well no complaints foot evaluated by podiatry according to the notes the leg looks good - Current Medication List Current Medications: Active Medications Acetaminophen (Tylenol -) 325 mg PO Q6H PRN PRN Reason: PAIN Stop: 02/24/17 23:59 Last Admin: 02/24/17 08:52 Dose: 325 mg Amlodipine Besylate (Norvasc -) 5 mg PO DAILY [facility] Last Admin: 02/24/17 09:00 Dose: 5 mg Aspirin (Ecotrin -) 81 mg PO DAILY [facility] Last Admin: 02/24/17 09:00 Dose: 81 mg Docusate Sodium (Colace -) 100 mg PO BID PRN PRN Reason: CONSTIPATION Docusate Sodium (Colace -) 300 mg PO HS [facility] Last Admin: 02/23/17 21:16 Dose: 300 mg Heparin Sodium (Porcine) (Heparin -) 5,000 unit SQ BID [facility] Last Admin: 02/24/17 09:00 Dose: 5,000 unit Hydrochlorothiazide (Hctz -) 25 mg PO BID [facility] Last Admin: 02/24/17 08:59 Dose: 25 mg Piperacillin Sod/Tazobactam (Sod 4.5 gm/ Sodium Chloride) 100 mls @ 200 mls/hr IVPB Q8H-IV [facility] PRN Reason: Protocol Stop: 02/27/17 10:29 Last Admin: 02/24/17 08:59 Dose: 200 mls/hr Vancomycin HCl 1,250 mg/ (Sodium Chloride) 500 mls @ 250 mls/hr IVPB BID [facility] Insulin Aspart (Novolog Vial Sliding Scale -) 1 vial SQ ACHS [facility] PRN Reason: Protocol Last Admin: 02/24/17 11:51 Dose: 2 units Insulin Detemir (Levemir Vial) 30 units SQ AM [facility] Last Admin: 02/24/17 06:03 Dose: 30 units Metformin HCl (Glucophage -) 1,000 mg PO BIDI [facility] Last Admin: 02/24/17 06:03 Dose: 1,000 mg Metoprolol Succinate (Toprol Xl -) 25 mg PO DAILY [facility] Last Admin: 02/24/17 08:59 Dose: 25 mg Oxycodone HCl (Roxicodone -) 10 mg PO Q4H PRN PRN Reason: PAIN Last Admin: 07/16/17 08:52 Dose: 10 mg Polyethylene Glycol (Miralax (For Daily Use) -) 17 gm PO DAILY [facility] Last Admin: 02/24/17 09:00 Dose: Not Given Senna (Senna -) 1 tab PO BID [facility] Last Admin: 02/24/17 08:59 Dose: 1 tab - Objective Vital Signs: Vital Signs Temperature 98.6 F 02/24/17 08:50 Pulse Rate 105 H 02/24/17 08:50 Respiratory Rate 18 02/24/17 08:50 Blood Pressure 159/89 02/24/17 08:50 O2 Sat by Pulse Oximetry (%) 99 02/24/17 08:52 Constitutional: Yes: No Distress, Calm Eyes: Yes: Conjunctiva Clear Cardiovascular: Yes: Regular Rate and Rhythm Respiratory: Yes: Regular, CTA Bilaterally Gastrointestinal: Yes: Normal Bowel Sounds, Soft Musculoskeletal: Yes: Other Extremities: Yes: Other Wound/Incision: Yes: Dressing Dry and Intact, Other Neurological: Yes: Alert, Oriented Psychiatric: Yes: Alert, Oriented Labs: CBC, BMP 02/23/17 06:00 02/23/17 06:00 Assessment/Plan osteo of the left foot abscess left foot cellulittis left foot gangrene left 5th toe dm leukocytosis fever plan continue current abx repeat blood cx result noted patient doing well rest as per primary
[2017-02-24] MEDS: DOCUSATE SODIUM 100 MG CAPSULE (FP) PO SCH ×2 (21:53→21:59)
[2017-02-24] MEDS: VANCOMYCIN 1,250 MG in SODIUM CHLORIDE 250 ML IVPB SCH (21:55)
--- NOTE | 2017-02-24 22:36 | PN ---
Progress Note, Physician History of Present Illness: No new complaints - Current Medication List Current Medications: Active Medications Acetaminophen (Tylenol -) 325 mg PO Q6H PRN PRN Reason: PAIN Stop: 02/24/17 23:59 Last Admin: 02/24/17 21:54 Dose: 325 mg Amlodipine Besylate (Norvasc -) 5 mg PO DAILY [facility] Last Admin: 02/24/17 09:00 Dose: 5 mg Aspirin (Ecotrin -) 81 mg PO DAILY [facility] Last Admin: 02/24/17 09:00 Dose: 81 mg Docusate Sodium (Colace -) 100 mg PO BID PRN PRN Reason: CONSTIPATION Docusate Sodium (Colace -) 300 mg PO HS [facility] Last Admin: 02/24/17 21:59 Dose: Not Given Heparin Sodium (Porcine) (Heparin -) 5,000 unit SQ BID [facility] Last Admin: 02/24/17 21:54 Dose: 5,000 unit Hydrochlorothiazide (Hctz -) 25 mg PO BID [facility] Last Admin: 02/24/17 21:54 Dose: 25 mg Piperacillin Sod/Tazobactam (Sod 4.5 gm/ Sodium Chloride) 100 mls @ 200 mls/hr IVPB Q8H-IV [facility] PRN Reason: Protocol Stop: 02/27/17 10:29 Last Admin: 02/24/17 17:18 Dose: 200 mls/hr Vancomycin HCl 1,250 mg/ (Sodium Chloride) 250 mls @ 166.667 mls/hr IVPB BID [facility] Last Admin: 02/24/17 21:55 Dose: 166.667 mls/hr Insulin Aspart (Novolog Vial Sliding Scale -) 1 vial SQ ACHS [facility] PRN Reason: Protocol Last Admin: 02/24/17 21:52 Dose: 4 units Insulin Detemir (Levemir Vial) 30 units SQ AM [facility] Last Admin: 02/24/17 06:03 Dose: 30 units Metformin HCl (Glucophage -) 1,000 mg PO BIDI [facility] Last Admin: 02/24/17 17:18 Dose: 1,000 mg Metoprolol Succinate (Toprol Xl -) 25 mg PO DAILY [facility] Last Admin: 02/24/17 08:59 Dose: 25 mg Oxycodone HCl (Roxicodone -) 10 mg PO Q4H PRN PRN Reason: PAIN Last Admin: 02/24/17 21:53 Dose: 10 mg Polyethylene Glycol (Miralax (For Daily Use) -) 17 gm PO DAILY [facility] Last Admin: 02/24/17 09:00 Dose: Not Given Senna (Senna -) 1 tab PO BID [facility] Last Admin: 02/24/17 21:59 Dose: Not Given - Objective Vital Signs: Vital Signs Temperature 99.1 F 02/24/17 20:10 Pulse Rate 88 02/24/17 20:10 Respiratory Rate 20 02/24/17 20:10 Blood Pressure 172/81 02/24/17 20:10 O2 Sat by Pulse Oximetry (%) 100 02/24/17 20:17 Constitutional: Yes: Well Nourished Eyes: Yes: WNL HENT: Yes: WNL Neck: Yes: WNL, Supple Cardiovascular: Yes: WNL, Regular Rate and Rhythm Respiratory: Yes: WNL, Regular, CTA Bilaterally Musculoskeletal: Yes: Other ((+) lt foot in dressing wc is oozing) Labs: CBC, BMP 02/23/17 06:00 02/23/17 06:00 Problem List - Problems (1) Osteomyelitis Assessment/Plan: S/P I&D of lt foot abscess Wound BC (+)for strep agalactiae/strep viridans Initial BC (+) for gram (+) cocci Repeat BC remain negative Cont wund care Cont IV vanco/zosyn Code(s): M86.9 - OSTEOMYELITIS, UNSPECIFIED (2) Diabetes Assessment/Plan: Glucose uncontrolled Cont metformin/levemir/sliding scale w/ coverage Endo consult noted Code(s): E11.9 - TYPE 2 DIABETES MELLITUS WITHOUT COMPLICATIONS Qualifiers: Diabetes mellitus type: other specified (including LASHAY) Diabetes mellitus complication status: with hyperglycemia Diabetes mellitus care home insulin use: unspecified care home insulin use status Qualified Code (s): E13.65 - Other specified diabetes mellitus with hyperglycemia (3) HTN (hypertension) Assessment/Plan: BP stable Cont norvasc/toprol/asa/hctz Code(s): I10 - ESSENTIAL (PRIMARY) HYPERTENSION (4) Morbid obesity Code(s): E66.01 - MORBID (SEVERE) OBESITY DUE TO EXCESS CALORIES
[2017-02-25] MEDS ORDERED: SODIUM CHLORIDE 100 ML IVPB ONE ×3 (01:19→20:10)
[2017-02-25] MEDS ORDERED: PIPERACILLIN/TAZOBACTAM 4.5 GM VIAL IVPB ONE ×3 (01:19→20:09)
[2017-02-25] MEDS: PIPERACILLIN/TAZOB 4.5 GM 4.5 GM in SODIUM CHLORIDE 100 ML IVPB SCH ×3 (01:38→20:15)
[2017-02-25] MEDS: INSULIN SLIDING SCALE (NOVOLOG) 1 VIAL SQ SCH ×4 (06:21→21:18)
[2017-02-25] MEDS: INSULIN DETEMIR 100 UNITS/ML MDV SQ SCH (06:21)
[2017-02-25] MEDS: metFORMIN HCL 500 MG TABLET (FP) PO SCH ×2 (06:22→18:16)
[2017-02-25 08:07] LABS: BASOPHIL 0.8 % (0-2.0); EOSINOPHIL 1.4 % (0-4.5); MCH 26.8 pg (25.7-33.7); MCHC 32.1 g/dl (32.0-35.9); MEAN CELL VOLUME 83.4 fl (80-96); MEAN PLT VOLUME 7.2 fl (7.5-11.1); NEUTROPHILS 72.2 % (42.8-82.8); PLATELET COUNT 843 K/MM3 (134-434); RDW 14.5 % (11.9-15.9); WHITE BLOOD COUNT 11.4 K/mm3 (4.0-10.0)
[2017-02-25 08:30] LABS: ALBUMIN 2.3 g/dl (3.4-5.0); ALK PHOS 98 U/L (45-117); ANION GAP 9 (8-16); BILIRUBIN,TOTAL 0.6 mg/dL (0.2-1.0); CALCIUM 9.1 mg/dL (8.5-10.1); CO2 28 mmol/L (21-32); CREATININE 0.7 mg/dL (0.7-1.3); GLUCOSE,RANDOM 176 mg/dL (74-106); SGOT/AST 13 U/L (15-37); SGPT/ALT 15 U/L (12-78); TOT PROT 7.2 g/dl (6.4-8.2)
[2017-02-25] MEDS: oxyCODONE HCL 5 MG TABLET PO PRN ×2 (10:41→21:18)
[2017-02-25] MEDS: ASPIRIN COATED 81 MG TABLET.EC PO SCH (10:42)
[2017-02-25] MEDS: METOPROLOL SUCCINATE 25 MG TAB.SR.24H (FP) PO SCH (10:42)
[2017-02-25] MEDS: HYDROCHLOROTHIAZIDE 25 MG TABLET (FP) PO SCH ×2 (10:42→21:17)
[2017-02-25] MEDS: amLODIPine BESYLATE 5 MG TABLET (FP) PO SCH (10:42)
[2017-02-25] MEDS: SENNOSIDES 8.6MG TABLET (FP) PO SCH ×2 (10:42→22:20)
[2017-02-25] MEDS: HEPARIN NA (PORCINE) 5,000 UNITS/ML 1ML VIAL SQ SCH ×2 (10:42→21:17)
[2017-02-25] MEDS: VANCOMYCIN 1,250 MG in SODIUM CHLORIDE 250 ML IVPB SCH ×2 (10:43→22:22)
[2017-02-25] MEDS: POLYETHYLENE GLYCOL 3350 119 GM BTL PO SCH (10:43)
[2017-02-25] MEDS ORDERED: INSULIN (NOVOLOG) ASPART 100 UNITS/ML 10ML VIAL ONE (11:37)
--- NOTE | 2017-02-25 15:35 | PN ---
Progress Note, Physician History of Present Illness: patient stable doing well no complaints leg still oozing - Current Medication List Current Medications: Active Medications Amlodipine Besylate (Norvasc -) 5 mg PO DAILY [facility] Last Admin: 02/25/17 10:42 Dose: 5 mg Aspirin (Ecotrin -) 81 mg PO DAILY [facility] Last Admin: 02/25/17 10:42 Dose: 81 mg Docusate Sodium (Colace -) 100 mg PO BID PRN PRN Reason: CONSTIPATION Docusate Sodium (Colace -) 300 mg PO HS [facility] Last Admin: 02/24/17 21:59 Dose: Not Given Heparin Sodium (Porcine) (Heparin -) 5,000 unit SQ BID [facility] Last Admin: 02/25/17 10:42 Dose: 5,000 unit Hydrochlorothiazide (Hctz -) 25 mg PO BID [facility] Last Admin: 02/25/17 10:42 Dose: 25 mg Piperacillin Sod/Tazobactam (Sod 4.5 gm/ Sodium Chloride) 100 mls @ 200 mls/hr IVPB Q8H-IV [facility] PRN Reason: Protocol Stop: 02/27/17 10:29 Last Admin: 02/25/17 10:43 Dose: 200 mls/hr Vancomycin HCl 1,250 mg/ (Sodium Chloride) 250 mls @ 166.667 mls/hr IVPB BID [facility] Last Admin: 02/25/17 10:43 Dose: 166.667 mls/hr Insulin Aspart (Novolog Vial Sliding Scale -) 1 vial SQ ACHS [facility] PRN Reason: Protocol Last Admin: 02/25/17 11:44 Dose: 4 units Insulin Detemir (Levemir Vial) 30 units SQ AM [facility] Last Admin: 02/25/17 06:21 Dose: 30 units Metformin HCl (Glucophage -) 1,000 mg PO BIDI [facility] Last Admin: 02/25/17 06:22 Dose: 1,000 mg Metoprolol Succinate (Toprol Xl -) 25 mg PO DAILY [facility] Last Admin: 02/25/17 10:42 Dose: 25 mg Oxycodone HCl (Roxicodone -) 10 mg PO Q4H PRN PRN Reason: PAIN Last Admin: 02/25/17 10:41 Dose: 10 mg Polyethylene Glycol (Miralax (For Daily Use) -) 17 gm PO DAILY [facility] Last Admin: 02/25/17 10:43 Dose: Not Given Senna (Senna -) 1 tab PO BID [facility] Last Admin: 02/25/17 10:42 Dose: 1 tab - Objective Vital Signs: Vital Signs Temperature 98.9 F 02/25/17 15:07 Pulse Rate 87 02/25/17 15:07 Respiratory Rate 20 02/25/17 15:07 Blood Pressure 121/58 02/25/17 15:07 O2 Sat by Pulse Oximetry (%) 100 02/25/17 09:00 Constitutional: Yes: No Distress, Calm Cardiovascular: Yes: Regular Rate and Rhythm Respiratory: Yes: Regular, CTA Bilaterally Gastrointestinal: Yes: Normal Bowel Sounds, Soft Musculoskeletal: Yes: Other Extremities: Yes: Other Wound/Incision: Yes: Draining, Other (draiange thro the dressing) Neurological: Yes: Alert, Oriented Psychiatric: Yes: Alert, Oriented Labs: CBC, BMP 02/25/17 06:40 02/25/17 06:40 Assessment/Plan osteo of the left foot abscess left foot cellulittis left foot gangrene left 5th toe dm leukocytosis fever plan continue current abx wound care
--- NOTE | 2017-02-25 21:57 | PN ---
Progress Note, Physician - Current Medication List Current Medications: Active Medications Amlodipine Besylate (Norvasc -) 5 mg PO DAILY [facility] Last Admin: 02/25/17 10:42 Dose: 5 mg Aspirin (Ecotrin -) 81 mg PO DAILY [facility] Last Admin: 02/25/17 10:42 Dose: 81 mg Docusate Sodium (Colace -) 100 mg PO BID PRN PRN Reason: CONSTIPATION Docusate Sodium (Colace -) 300 mg PO HS [facility] Last Admin: 02/24/17 21:59 Dose: Not Given Heparin Sodium (Porcine) (Heparin -) 5,000 unit SQ BID [facility] Last Admin: 02/25/17 21:17 Dose: 5,000 unit Hydrochlorothiazide (Hctz -) 25 mg PO BID [facility] Last Admin: 02/25/17 21:17 Dose: 25 mg Piperacillin Sod/Tazobactam (Sod 4.5 gm/ Sodium Chloride) 100 mls @ 200 mls/hr IVPB Q8H-IV [facility] PRN Reason: Protocol Stop: 02/27/17 10:29 Last Admin: 02/25/17 20:15 Dose: 200 mls/hr Vancomycin HCl 1,250 mg/ (Sodium Chloride) 250 mls @ 166.667 mls/hr IVPB BID [facility] Last Admin: 02/25/17 10:43 Dose: 166.667 mls/hr Insulin Aspart (Novolog Vial Sliding Scale -) 1 vial SQ ACHS [facility] PRN Reason: Protocol Last Admin: 02/25/17 21:18 Dose: 2 units Insulin Detemir (Levemir Vial) 30 units SQ AM [facility] Last Admin: 02/25/17 06:21 Dose: 30 units Metformin HCl (Glucophage -) 1,000 mg PO BIDI [facility] Last Admin: 02/25/17 18:16 Dose: 1,000 mg Metoprolol Succinate (Toprol Xl -) 25 mg PO DAILY [facility] Last Admin: 02/25/17 10:42 Dose: 25 mg Oxycodone HCl (Roxicodone -) 10 mg PO Q4H PRN PRN Reason: PAIN Last Admin: 02/25/17 21:18 Dose: 10 mg Polyethylene Glycol (Miralax (For Daily Use) -) 17 gm PO DAILY [facility] Last Admin: 02/25/17 10:43 Dose: Not Given Senna (Senna -) 1 tab PO BID [facility] Last Admin: 02/25/17 10:42 Dose: 1 tab - Objective Vital Signs: Vital Signs Temperature 99.5 F 02/25/17 18:00 Pulse Rate 92 H 02/25/17 18:00 Respiratory Rate 18 02/25/17 18:00 Blood Pressure 157/78 02/25/17 18:00 O2 Sat by Pulse Oximetry (%) 100 02/25/17 09:00 Labs: CBC, BMP 02/25/17 06:40 02/25/17 06:40 Problem List - Problems (1) Osteomyelitis Code(s): M86.9 - OSTEOMYELITIS, UNSPECIFIED (2) Diabetes Code(s): E11.9 - TYPE 2 DIABETES MELLITUS WITHOUT COMPLICATIONS Qualifiers: Diabetes mellitus type: other specified (including LASHAY) Diabetes mellitus complication status: with hyperglycemia Diabetes 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
[2017-02-25] MEDS: DOCUSATE SODIUM 100 MG CAPSULE (FP) PO SCH (22:20)
--- NOTE | 2017-02-25 23:29 | PN ---
Progress Note, Physician Chief Complaint: high sugars History of Present Illness: 56 yo diabetes mellitus, HTN HLD h/o chronic foot wound, here with left foot infection. According tot he patient this has been going on for more than 3 weeks and because he did not ahve any insurance he did not come to the hospital, has dm over 20yrs, without hypoglycemia,has poor appetite feel bloating sp left foot abscess surgical procedure - Current Medication List Current Medications: Active Medications Amlodipine Besylate (Norvasc -) 5 mg PO DAILY [facility] Last Admin: 02/25/17 10:42 Dose: 5 mg Aspirin (Ecotrin -) 81 mg PO DAILY [facility] Last Admin: 02/25/17 10:42 Dose: 81 mg Docusate Sodium (Colace -) 100 mg PO BID PRN PRN Reason: CONSTIPATION Docusate Sodium (Colace -) 300 mg PO HS [facility] Last Admin: 02/25/17 22:20 Dose: Not Given Heparin Sodium (Porcine) (Heparin -) 5,000 unit SQ BID [facility] Last Admin: 02/25/17 21:17 Dose: 5,000 unit Hydrochlorothiazide (Hctz -) 25 mg PO BID [facility] Last Admin: 02/25/17 21:17 Dose: 25 mg Piperacillin Sod/Tazobactam (Sod 4.5 gm/ Sodium Chloride) 100 mls @ 200 mls/hr IVPB Q8H-IV [facility] PRN Reason: Protocol Stop: 02/27/17 10:29 Last Admin: 02/25/17 20:15 Dose: 200 mls/hr Vancomycin HCl 1,250 mg/ (Sodium Chloride) 250 mls @ 166.667 mls/hr IVPB BID [facility] Last Admin: 02/25/17 22:22 Dose: 166.667 mls/hr Insulin Aspart (Novolog Vial Sliding Scale -) 1 vial SQ ACHS [facility] PRN Reason: Protocol Last Admin: 02/25/17 21:18 Dose: 2 units Insulin Detemir (Levemir Vial) 30 units SQ AM [facility] Last Admin: 02/25/17 06:21 Dose: 30 units Metformin HCl (Glucophage -) 1,000 mg PO BIDI [facility] Last Admin: 02/25/17 18:16 Dose: 1,000 mg Metoprolol Succinate (Toprol Xl -) 25 mg PO DAILY [facility] Last Admin: 02/25/17 10:42 Dose: 25 mg Oxycodone HCl (Roxicodone -) 10 mg PO Q4H PRN PRN Reason: PAIN Last Admin: 02/25/17 21:18 Dose: 10 mg Polyethylene Glycol (Miralax (For Daily Use) -) 17 gm PO DAILY [facility] Last Admin: 02/25/17 10:43 Dose: Not Given Senna (Senna -) 1 tab PO BID [facility] Last Admin: 02/25/17 22:20 Dose: Not Given - Objective Vital Signs: Vital Signs Temperature 99.5 F 02/25/17 18:00 Pulse Rate 92 H 02/25/17 18:00 Respiratory Rate 18 02/25/17 18:00 Blood Pressure 157/78 02/25/17 18:00 O2 Sat by Pulse Oximetry (%) 100 02/25/17 09:00 Constitutional: Yes: Calm Eyes: Yes: EOM Intact HENT: Yes: Normocephalic Neck: Yes: Trachea Midline Cardiovascular: Yes: Regular Rate and Rhythm Respiratory: Yes: CTA Bilaterally Gastrointestinal: Yes: Normal Bowel Sounds ...Rectal Exam: Yes: Deferred Genitourinary: Yes: WNL Breast(s): Yes: WNL Musculoskeletal: Yes: WNL Edema: Yes Edema: LLE: 1+ Peripheral Pulses WNL: Yes Wound/Incision: Yes: Dressing Dry and Intact Neurological: Yes: WNL, Alert, Oriented ...Motor Strength: WNL Psychiatric: Yes: Alert, Oriented Labs: CBC, BMP 02/25/17 06:40 02/25/17 06:40 Problem List - Problems (1) Cellulitis Code(s): L03.90 - CELLULITIS, UNSPECIFIED (2) Foot ulcer Code(s): L97.509 - NON-PRESSURE CHRONIC ULCER OT PRT UNSP FOOT W UNSP SEVERITY (3) Morbid obesity Code(s): E66.01 - MORBID (SEVERE) OBESITY DUE TO EXCESS CALORIES (4) Acute on chronic diastolic (congestive) heart failure Code(s): I50.33 - ACUTE ON CHRONIC DIASTOLIC (CONGESTIVE) HEART FAILURE (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 Code(s): 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 - TYPE 2 DIABETES MELLITUS W OTH DIABETIC KIDNEY COMPLICATION (6) Diabetes Code(s): E11.9 - TYPE 2 DIABETES MELLITUS WITHOUT COMPLICATIONS Qualifiers: Diabetes mellitus type: other specified (including LASHAY) Diabetes mellitus complication status: with hyperglycemia Diabetes mellitus prison insulin use: unspecified prison insulin use status Qualified Code (s): E13.65 - Other specified diabetes mellitus with hyperglycemia (7) Gangrene Code(s): I96 - GANGRENE, NOT ELSEWHERE CLASSIFIED Assessment/Plan Current Active Problems Cellulitis (Acute) Morbid obesity (Acute) diabetes mellitus ckd diabetic neuropathy non healing foot ulcer Abnormal Lab Results 02/25/17 02/25/17 06:40 06:40 WBC 11.4 H RBC 3.44 L Hgb 9.2 L Hct 28.7 L Plt Count 843 H MPV 7.2 L Sodium 132 L Chloride 95 L Random Glucose 176 H AST 13 L D Albumin 2.3 L D Laboratory Results - last 24 hr 02/25/17 02/25/17 02/25/17 05:39 06:40 06:40 WBC 11.4 H RBC 3.44 L Hgb 9.2 L Hct 28.7 L MCV 83.4 MCH 26.8 MCHC 32.1 RDW 14.5 Plt Count 843 H MPV 7.2 L Neutrophils % 72.2 Lymphocytes % 21.6 D Monocytes % 4.0 Eosinophils % 1.4 D Basophils % 0.8 Sodium 132 L Potassium 4.8 Chloride 95 L Carbon Dioxide 28 Anion Gap 9 BUN 13 D Creatinine 0.7 Creat Clearance w eGFR > 60 POC Glucometer 174 Random Glucose 176 H Calcium 9.1 Total Bilirubin 0.6 D AST 13 L D ALT 15 Alkaline Phosphatase 98 D Total Protein 7.2 Albumin 2.3 L D 02/25/17 02/25/17 10:50 21:14 WBC RBC Hgb Hct MCV MCH MCHC RDW Plt Count MPV Neutrophils % Lymphocytes % Monocytes % Eosinophils % Basophils % Sodium Potassium Chloride Carbon Dioxide Anion Gap BUN Creatinine Creat Clearance w eGFR POC Glucometer 250 191 Random Glucose Calcium Total Bilirubin AST ALT Alkaline Phosphatase Total Protein Albumin Laboratory Tests 02/20/17 02/20/17 02/20/17 06:14 12:01 17:35 POC Glucometer 176 232 296 02/20/17 02/24/17 02/24/17 20:48 17:17 21:50 POC Glucometer 366 227 218 02/25/17 02/25/17 02/25/17 05:39 10:50 21:14 POC Glucometer 174 250 191 plan; Current Medications Generic Name Dose Route Start Last Admin Trade Name Freq PRN Reason Stop Dose Admin Amlodipine Besylate 5 mg 02/21/17 10:00 02/25/17 10:42 Norvasc - PO 5 mg DAILY [facility] Administration Aspirin 81 mg 02/21/17 10:00 02/25/17 10:42 Ecotrin - PO 81 mg DAILY [facility] Administration Docusate Sodium 100 mg 02/20/17 22:00 Colace - PO BID PRN CONSTIPATION Docusate Sodium 300 mg 02/21/17 23:45 02/25/17 22:20 Colace - PO Not Given HS [facility] Heparin Sodium (Porcine) 5,000 unit 02/20/17 22:00 02/25/17 21:17 Heparin - SQ 5,000 unit BID [facility] Administration Hydrochlorothiazide 25 mg 02/20/17 22:00 02/25/17 21:17 Hctz - PO 25 mg BID [facility] Administration Piperacillin Sod/Tazobactam 100 mls @ 200 mls/hr 02/22/17 13:55 02/25/17 20:15 Sod 4.5 gm/ Sodium Chloride IVPB 02/27/17 10:29 200 mls/hr Q8H-IV [facility] Administration Protocol Vancomycin HCl 1,250 mg/ 250 mls @ 166.667 mls/hr 02/24/17 22:00 02/25/17 22:22 Sodium Chloride IVPB 166.667 mls/hr BID [facility] Administration Insulin Aspart 1 vial 02/20/17 16:30 02/25/17 21:18 Novolog Vial Sliding Scale - SQ 2 units ACHS [facility] Administration Protocol Insulin Detemir 30 units 02/21/17 07:00 02/25/17 06:21 Levemir Vial SQ 30 units AM [facility] Administration Metformin HCl 1,000 mg 02/20/17 16:30 02/25/17 18:16 Glucophage - PO 1,000 mg BIDI [facility] Administration Metoprolol Succinate 25 mg 02/21/17 10:00 02/25/17 10:42 Toprol Xl - PO 25 mg DAILY [facility] Administration Oxycodone HCl 10 mg 02/24/17 08:26 02/25/17 21:18 Roxicodone - PO 10 mg Q4H PRN Administration PAIN Polyethylene Glycol 17 gm 02/21/17 22:45 07/17/17 10:43 Miralax (For Daily Use) - PO Not Given DAILY [facility] Senna 1 tab 02/20/17 22:00 02/25/17 22:20 Senna - PO Not Given BID [facility] increase levemir 37 units q am
[2017-02-26] MEDS ORDERED: PIPERACILLIN/TAZOBACTAM 4.5 GM VIAL IVPB ONE ×2 (02:27→09:50)
[2017-02-26] MEDS ORDERED: SODIUM CHLORIDE 100 ML IVPB ONE ×2 (02:28→09:50)
[2017-02-26] MEDS: PIPERACILLIN/TAZOB 4.5 GM 4.5 GM in SODIUM CHLORIDE 100 ML IVPB SCH ×4 (02:31→17:00)
[2017-02-26] MEDS: INSULIN DETEMIR 100 UNITS/ML MDV SQ SCH (06:25)
[2017-02-26] MEDS: metFORMIN HCL 500 MG TABLET (FP) PO SCH ×2 (06:25→17:19)
[2017-02-26] MEDS: INSULIN SLIDING SCALE (NOVOLOG) 1 VIAL SQ SCH ×4 (06:25→21:07)
[2017-02-26 08:07] LABS: BASOPHIL 0.9 % (0-2.0); EOSINOPHIL 1.1 % (0-4.5); MCH 27.5 pg (25.7-33.7); MCHC 33.1 g/dl (32.0-35.9); MEAN CELL VOLUME 83.1 fl (80-96); MEAN PLT VOLUME 7.2 fl (7.5-11.1); NEUTROPHILS 70.9 % (42.8-82.8); PLATELET COUNT 829 K/MM3 (134-434); RDW 14.6 % (11.9-15.9); WHITE BLOOD COUNT 9.4 K/mm3 (4.0-10.0)
[2017-02-26 08:48] LABS: ALBUMIN 2.3 g/dl (3.4-5.0); ANION GAP 7 (8-16); CO2 30 mmol/L (21-32); GLUCOSE,RANDOM 143 mg/dL (74-106); SGOT/AST 12 U/L (15-37)
[2017-02-26 08:53] LABS: ALK PHOS 87 U/L (45-117); BILIRUBIN,TOTAL 0.5 mg/dL (0.2-1.0); CREATININE 0.7 mg/dL (0.7-1.3); SGPT/ALT 13 U/L (12-78)
[2017-02-26] MEDS: METOPROLOL SUCCINATE 25 MG TAB.SR.24H (FP) PO SCH (10:23)
[2017-02-26] MEDS: HEPARIN NA (PORCINE) 5,000 UNITS/ML 1ML VIAL SQ SCH ×2 (10:23→21:07)
[2017-02-26] MEDS: HYDROCHLOROTHIAZIDE 25 MG TABLET (FP) PO SCH ×2 (10:23→21:05)
[2017-02-26] MEDS: SENNOSIDES 8.6MG TABLET (FP) PO SCH ×2 (10:23→21:05)
[2017-02-26] MEDS: ASPIRIN COATED 81 MG TABLET.EC PO SCH (10:23)
[2017-02-26] MEDS: amLODIPine BESYLATE 5 MG TABLET (FP) PO SCH (10:24)
[2017-02-26] MEDS: VANCOMYCIN 1,250 MG in SODIUM CHLORIDE 250 ML IVPB SCH ×2 (10:25→13:55)
[2017-02-26] MEDS: oxyCODONE HCL 5 MG TABLET PO PRN ×2 (10:34→21:06)
[2017-02-26] MEDS: POLYETHYLENE GLYCOL 3350 119 GM BTL PO SCH (10:39)
[2017-02-26] MEDS ORDERED: PICC LINE 8 ML FLUSH PROTOCOL IVPUSH PRN (13:32)
--- NOTE | 2017-02-26 13:49 | PN ---
Progress Note, Physician History of Present Illness: patient stable no issues still oozing from the wound dressing wet - Current Medication List Current Medications: Active Medications Amlodipine Besylate (Norvasc -) 5 mg PO DAILY [facility] Last Admin: 02/26/17 10:24 Dose: 5 mg Aspirin (Ecotrin -) 81 mg PO DAILY [facility] Last Admin: 02/26/17 10:23 Dose: 81 mg Docusate Sodium (Colace -) 100 mg PO BID PRN PRN Reason: CONSTIPATION Docusate Sodium (Colace -) 300 mg PO HS [facility] Last Admin: 02/25/17 22:20 Dose: Not Given Heparin Sodium (Porcine) (Heparin -) 5,000 unit SQ BID [facility] Last Admin: 02/26/17 10:23 Dose: 5,000 unit Hydrochlorothiazide (Hctz -) 25 mg PO BID [facility] Last Admin: 02/26/17 10:23 Dose: 25 mg IV Flush (Picc Line Flush) 8 ml IVPUSH PRN PRN PRN Reason: Protocol Piperacillin Sod/Tazobactam (Sod 4.5 gm/ Sodium Chloride) 100 mls @ 200 mls/hr IVPB Q8H-IV [facility] PRN Reason: Protocol Stop: 02/27/17 10:29 Last Admin: 02/26/17 02:31 Dose: 200 mls/hr Vancomycin HCl 1,250 mg/ (Sodium Chloride) 250 mls @ 166.667 mls/hr IVPB BID [facility] Last Admin: 02/25/17 22:22 Dose: 166.667 mls/hr Insulin Aspart (Novolog Vial Sliding Scale -) 1 vial SQ ACHS [facility] PRN Reason: Protocol Last Admin: 02/26/17 12:19 Dose: 4 units Insulin Detemir (Levemir Vial) 37 units SQ AM [facility] Last Admin: 02/26/17 06:25 Dose: 37 unit Metformin HCl (Glucophage -) 1,000 mg PO BIDI [facility] Last Admin: 02/26/17 06:25 Dose: 1,000 mg Metoprolol Succinate (Toprol Xl -) 25 mg PO DAILY [facility] Last Admin: 02/26/17 10:23 Dose: 25 mg Oxycodone HCl (Roxicodone -) 10 mg PO Q4H PRN PRN Reason: PAIN Last Admin: 02/26/17 10:34 Dose: 10 mg Polyethylene Glycol (Miralax (For Daily Use) -) 17 gm PO DAILY [facility] Last Admin: 02/26/17 10:39 Dose: Not Given Senna (Senna -) 1 tab PO BID [facility] Last Admin: 02/26/17 10:23 Dose: Not Given - Objective Vital Signs: Vital Signs Temperature 98.7 F 02/26/17 06:00 Pulse Rate 82 02/26/17 06:00 Respiratory Rate 20 02/26/17 08:48 Blood Pressure 148/83 02/26/17 06:00 O2 Sat by Pulse Oximetry (%) 99 02/26/17 08:48 Constitutional: Yes: No Distress, Calm Cardiovascular: Yes: Regular Rate and Rhythm Respiratory: Yes: Regular, CTA Bilaterally Gastrointestinal: Yes: Normal Bowel Sounds, Soft Musculoskeletal: Yes: Other Extremities: Yes: Other Wound/Incision: Yes: Other (oozing from the dressing) Neurological: Yes: Alert, Oriented Labs: CBC, BMP 02/26/17 06:00 02/26/17 06:00 Assessment/Plan osteo of the left foot abscess left foot cellulittis left foot gangrene left 5th toe dm leukocytosis fever plan continue current abx wound care await for podiatry to evaluate will stop vanco
--- NOTE | 2017-02-26 19:11 | PN ---
Progress Note (short form) - Note Progress Note: Podiatry POD # 6 ( 2nd I&D ) Patient seen at bedside in NAD, A/A/Ox 3, states he feels better. Denies SOB, Calf pain or Chest Pains. Vital Signs Period Temp Pulse Resp BP Sys/Mclaughlin Pulse Ox Last 24 Hr 98.6 F-98.7 F 82-99 20-20 131-148/69-83 99-99 Laboratory Last Values WBC 9.4 K/mm3 (4.0-10.0) 02/26/17 06:00 RBC 3.30 M/mm3 (4.00-5.60) L 02/26/17 06:00 Hgb 9.1 GM/dL (11.7-16.9) L 02/26/17 06:00 Hct 27.5 % (35.4-49) L 02/26/17 06:00 MCV 83.1 fl (80-96) 02/26/17 06:00 MCH 27.5 pg (25.7-33.7) 02/26/17 06:00 MCHC 33.1 g/dl (32.0-35.9) 02/26/17 06:00 RDW 14.6 % (11.9-15.9) 02/26/17 06:00 Plt Count 829 K/MM3 (134-434) H 02/26/17 06:00 MPV 7.2 fl (7.5-11.1) L 02/26/17 06:00 Neutrophils % 70.9 % (42.8-82.8) 02/26/17 06:00 Lymphocytes % 22.2 % (8-40) 02/26/17 06:00 Monocytes % 4.9 % (3.8-10.2) 02/26/17 06:00 Eosinophils % 1.1 % (0-4.5) 02/26/17 06:00 Basophils % 0.9 % (0-2.0) 02/26/17 06:00 Band Neutrophils 23.0 % (0-10) H D 02/16/17 06:35 Differential Comment Manual diff done 02/16/17 06:35 Platelet Estimate Adequate (NORMAL) 02/16/17 06:35 VBG pH 7.40 (7.32-7.42) 02/15/17 11:18 POC VBG pCO2 49.4 mmHg (38-52) 02/15/17 11:18 POC VBG pO2 23.3 mmHg (28-48) L 02/15/17 11:18 Mixed VBG HCO3 30.1 meq/L (19-25) H 02/15/17 11:18 Sodium 132 mmol/L (136-145) L 02/26/17 06:00 Potassium 4.7 mmol/L (3.5-5.1) 02/26/17 06:00 Chloride 95 mmol/L (98-107) L 02/26/17 06:00 Carbon Dioxide 30 mmol/L (21-32) 02/26/17 06:00 Anion Gap 7 (8-16) L 02/26/17 06:00 BUN 16 mg/dL (7-18) D 02/26/17 06:00 Creatinine 0.7 mg/dL (0.7-1.3) 02/26/17 06:00 Creat Clearance w eGFR > 60 (>60) 02/26/17 06:00 POC Glucometer 208 UNITS (()) 02/26/17 11:43 Random Glucose 143 mg/dL (74-106) H 02/26/17 06:00 Hemoglobin A1c % 10.8 % (4.8-6.0) H 02/18/17 06:00 Lactic Acid 1.6 mmol/L (0.4-2.0) 02/16/17 06:35 Calcium 9.0 mg/dL (8.5-10.1) 02/26/17 06:00 Total Bilirubin 0.5 mg/dL (0.2-1.0) 02/26/17 06:00 AST 12 U/L (15-37) L 02/26/17 06:00 ALT 13 U/L (12-78) 02/26/17 06:00 Alkaline Phosphatase 87 U/L (45-117) 02/26/17 06:00 Creatine Kinase 112 IU/L (39-308) 02/15/17 11:05 Troponin I < 0.02 ng/ml (0.00-0.05) 02/15/17 11:05 Total Protein 7.0 g/dl (6.4-8.2) 02/26/17 06:00 Albumin 2.3 g/dl (3.4-5.0) L 02/26/17 06:00 Urine Color Yellow 02/15/17 16:00 Urine Appearance Clear 02/15/17 16:00 Urine pH 5.0 (5.0-8.0) 02/15/17 16:00 Ur Specific Rawlings 1.010 (1.005-1.025) 02/15/17 16:00 Urine Protein 1+ (NEGATIVE) H 02/15/17 16:00 Urine Glucose (UA) 3+ (NEGATIVE) H 02/15/17 16:00 Urine Ketones Negative (NEGATIVE) 02/15/17 16:00 Urine Blood 1+ (NEGATIVE) H 02/15/17 16:00 Urine Nitrite Negative (NEGATIVE) 02/15/17 16:00 Urine Bilirubin Negative (NEGATIVE) 02/15/17 16:00 Urine Urobilinogen 2.0 e.u/dl E.U./dl (0.2-1.0) 02/15/17 16:00 Ur Leukocyte Esterase Negative (NEGATIVE) 02/15/17 16:00 Urine RBC 17 /hpf (0-3) 02/15/17 16:00 Urine WBC 6 /hpf (3-5) 02/15/17 16:00 Vancomycin Pre-Dose 16.015 ug/ml (5.0-10.0) H* D 02/22/17 09:50 Blood Type O POSITIVE 02/15/17 10:26 Antibody Screen Negative 02/15/17 10:26 Left foot: Dressing clean dry intact. Upon removal no mal odor. + sero-sang drainge from the Peroneal tendons, no drainage form Ant tibial or 1st Inter- space site. Wounds red and beefy, no mal odor no cellulitis Swelling has decreased signfigantly 3rd toe variability questionable, distal aspect gangrenous, however toe is warm with evidence of Capillary re-fill A/P 1) Tunnelled Cath/ Iv Abx as per ID 2) Continue Abx 3) Patient surgically stable for D/C. Have patient folow up in wound care upon D/C to home 4) WBC trending downward to normal, clinically foot looks much better, prognosis still guarded however it is trending towards salvage, will apply VAC on outpatient 5) All notes read & appreciated 6) All other co-morbidities as per medical team 7) Ordder writen for collagenase daily 8) Will most likely need future debridements, but most likely will be able to do on an out patient basis 8) ONCE AGAIN PATIENT EDUCATED TO KEEP LEG/FOOT IN DEPENDANT POSITION MUCH POSSIBLE TO ALLOW FOR DRAINAGE. HE DEMONSTRATED VERBAL UNDERSTANDING
[2017-02-26] MEDS ORDERED: INSULIN (NOVOLOG) ASPART 100 UNITS/ML 10ML VIAL ONE (20:49)
[2017-02-26] MEDS: DOCUSATE SODIUM 100 MG CAPSULE (FP) PO SCH (21:05)
--- NOTE | 2017-02-26 23:46 | PN ---
Progress Note, Physician - Current Medication List Current Medications: Active Medications Amlodipine Besylate (Norvasc -) 5 mg PO DAILY [facility] Last Admin: 02/26/17 10:24 Dose: 5 mg Aspirin (Ecotrin -) 81 mg PO DAILY [facility] Last Admin: 02/26/17 10:23 Dose: 81 mg Collagenase (Santyl -) 1 applic TP DAILY [facility] Docusate Sodium (Colace -) 100 mg PO BID PRN PRN Reason: CONSTIPATION Docusate Sodium (Colace -) 300 mg PO HS [facility] Last Admin: 02/26/17 21:05 Dose: Not Given Heparin Sodium (Porcine) (Heparin -) 5,000 unit SQ BID [facility] Last Admin: 02/26/17 21:07 Dose: 5,000 unit Hydrochlorothiazide (Hctz -) 25 mg PO BID [facility] Last Admin: 02/26/17 21:05 Dose: 25 mg IV Flush (Picc Line Flush) 8 ml IVPUSH PRN PRN PRN Reason: Protocol Piperacillin Sod/Tazobactam (Sod 4.5 gm/ Sodium Chloride) 100 mls @ 200 mls/hr IVPB Q8H-IV [facility] PRN Reason: Protocol Stop: 02/27/17 10:29 Last Admin: 02/26/17 17:00 Dose: Not Given Insulin Aspart (Novolog Vial Sliding Scale -) 1 vial SQ ACHS [facility] PRN Reason: Protocol Last Admin: 02/26/17 21:07 Dose: 6 units Insulin Detemir (Levemir Vial) 37 units SQ AM [facility] Last Admin: 02/26/17 06:25 Dose: 37 unit Metformin HCl (Glucophage -) 1,000 mg PO BIDI [facility] Last Admin: 02/26/17 17:19 Dose: 1,000 mg Metoprolol Succinate (Toprol Xl -) 25 mg PO DAILY [facility] Last Admin: 02/26/17 10:23 Dose: 25 mg Oxycodone HCl (Roxicodone -) 10 mg PO Q4H PRN PRN Reason: PAIN Last Admin: 02/26/17 21:06 Dose: 10 mg Polyethylene Glycol (Miralax (For Daily Use) -) 17 gm PO DAILY [facility] Last Admin: 02/26/17 10:39 Dose: Not Given Senna (Senna -) 1 tab PO BID [facility] Last Admin: 02/26/17 21:05 Dose: Not Given - Objective Vital Signs: Vital Signs Temperature 98.9 F 02/26/17 22:00 Pulse Rate 82 02/26/17 22:00 Respiratory Rate 20 02/26/17 22:00 Blood Pressure 155/73 02/26/17 22:00 O2 Sat by Pulse Oximetry (%) 99 02/26/17 21:00 Labs: CBC, BMP 02/26/17 06:00 02/26/17 06:00 Problem List - Problems (1) Osteomyelitis Code(s): M86.9 - OSTEOMYELITIS, UNSPECIFIED (2) Diabetes Code(s): E11.9 - TYPE 2 DIABETES MELLITUS WITHOUT COMPLICATIONS Qualifiers: Diabetes mellitus type: other specified (including LASHAY) Diabetes mellitus complication status: with hyperglycemia Diabetes mellitus terminal gauger supervisor insulin use: unspecified terminal gauger supervisor insulin use status Qualified Code (s): E13.65 - Other specified diabetes mellitus with hyperglycemia (3) HTN (hypertension) Code(s): I10 - ESSENTIAL (PRIMARY) HYPERTENSION (4) Morbid obesity Code(s): E66.01 - MORBID (SEVERE) OBESITY DUE TO EXCESS CALORIES
[2017-02-27] MEDS ORDERED: SODIUM CHLORIDE 100 ML IVPB ONE (02:24)
[2017-02-27] MEDS ORDERED: PIPERACILLIN/TAZOBACTAM 4.5 GM VIAL IVPB ONE (02:24)
[2017-02-27] MEDS: PIPERACILLIN/TAZOB 4.5 GM 4.5 GM in SODIUM CHLORIDE 100 ML IVPB SCH ×2 (02:26→12:27)
[2017-02-27] MEDS: metFORMIN HCL 500 MG TABLET (FP) PO SCH ×2 (06:20→17:56)
[2017-02-27] MEDS: INSULIN SLIDING SCALE (NOVOLOG) 1 VIAL SQ SCH ×4 (06:22→21:54)
[2017-02-27] MEDS: INSULIN DETEMIR 100 UNITS/ML MDV SQ SCH (06:22)
[2017-02-27] MEDS ORDERED: PT OWN MED DRAWER 7, Y5N ONE ×2 (06:28→17:44)
[2017-02-27] MEDS: SENNOSIDES 8.6MG TABLET (FP) PO SCH ×2 (11:05→21:50)
[2017-02-27] MEDS: HYDROCHLOROTHIAZIDE 25 MG TABLET (FP) PO SCH ×2 (11:05→21:50)
[2017-02-27] MEDS: COLLAGENASE CLOSTRIDIUM HIST. 30 GRAMS TUBE TP SCH (11:06)
[2017-02-27] MEDS: METOPROLOL SUCCINATE 25 MG TAB.SR.24H (FP) PO SCH (11:06)
[2017-02-27] MEDS: POLYETHYLENE GLYCOL 3350 119 GM BTL PO SCH (11:06)
[2017-02-27] MEDS: amLODIPine BESYLATE 5 MG TABLET (FP) PO SCH (11:06)
[2017-02-27] MEDS ORDERED: LEVOFLOXACIN 750 MG TABLET PO SCH (15:45)
[2017-02-27] MEDS ORDERED: CEFTRIAXONE 2 GM in DEXTROSE 5%-WATER - 100 ML IVPB SCH (15:45)
--- NOTE | 2017-02-27 16:00 | PN ---
Progress Note, Physician History of Present Illness: patient doing well pain is the main issue - Current Medication List Current Medications: Active Medications Amlodipine Besylate (Norvasc -) 5 mg PO DAILY [facility] Last Admin: 02/27/17 11:06 Dose: 5 mg Aspirin (Ecotrin -) 81 mg PO DAILY [facility] Last Admin: 02/26/17 10:23 Dose: 81 mg Collagenase (Santyl -) 1 applic TP DAILY [facility] Last Admin: 02/27/17 11:06 Dose: 1 applic Docusate Sodium (Colace -) 100 mg PO BID PRN PRN Reason: CONSTIPATION Docusate Sodium (Colace -) 300 mg PO HS [facility] Last Admin: 02/26/17 21:05 Dose: Not Given Heparin Sodium (Porcine) (Heparin -) 5,000 unit SQ BID [facility] Last Admin: 02/26/17 21:07 Dose: 5,000 unit Hydrochlorothiazide (Hctz -) 25 mg PO BID [facility] Last Admin: 02/27/17 11:05 Dose: 25 mg IV Flush (Picc Line Flush) 8 ml IVPUSH PRN PRN PRN Reason: Protocol Ceftriaxone Sodium 2 gm/ (Dextrose) 100 mls @ 200 mls/hr IVPB DAILY [facility] Insulin Aspart (Novolog Vial Sliding Scale -) 1 vial SQ ACHS [facility] PRN Reason: Protocol Last Admin: 02/27/17 11:11 Dose: 6 units Insulin Detemir (Levemir Vial) 37 units SQ AM [facility] Last Admin: 02/27/17 06:22 Dose: 37 unit Levofloxacin (Levaquin) 750 mg PO DAILY [facility] Metformin HCl (Glucophage -) 1,000 mg PO BIDI [facility] Last Admin: 02/27/17 06:20 Dose: 1,000 mg Metoprolol Succinate (Toprol Xl -) 25 mg PO DAILY [facility] Last Admin: 02/27/17 11:06 Dose: 25 mg Polyethylene Glycol (Miralax (For Daily Use) -) 17 gm PO DAILY [facility] Last Admin: 02/27/17 11:06 Dose: Not Given Senna (Senna -) 1 tab PO BID [facility] Last Admin: 02/27/17 11:05 Dose: 1 tab - Objective Vital Signs: Vital Signs Temperature 98.8 F 02/27/17 14:48 Pulse Rate 89 02/27/17 14:48 Respiratory Rate 18 02/27/17 14:48 Blood Pressure 132/68 02/27/17 14:48 O2 Sat by Pulse Oximetry (%) 98 02/27/17 09:00 Constitutional: Yes: No Distress, Calm Cardiovascular: Yes: Regular Rate and Rhythm Respiratory: Yes: Regular, CTA Bilaterally Gastrointestinal: Yes: Normal Bowel Sounds, Soft Musculoskeletal: Yes: Other Extremities: Yes: Other Wound/Incision: Yes: Draining, Other Neurological: Yes: Alert, Oriented Psychiatric: Yes: Alert Labs: CBC, BMP 02/26/17 06:00 02/26/17 06:00 Assessment/Plan osteo of the left foot abscess left foot cellulittis left foot gangrene left 5th toe dm leukocytosis fever plan abx changed patient for picc line
[2017-02-27] MEDS ORDERED: DEXTROSE 5%-WATER 100 ML IVPB ONE (17:16)
[2017-02-27] MEDS: HEPARIN NA (PORCINE) 5,000 UNITS/ML 1ML VIAL SQ SCH ×2 (17:42→21:51)
[2017-02-27] MEDS: ASPIRIN COATED 81 MG TABLET.EC PO SCH (17:42)
[2017-02-27] MEDS ORDERED: LEVOFLOXACIN 250 MG TABLET (FP) ONE (17:51)
[2017-02-27] MEDS ORDERED: LEVOFLOXACIN 500 MG TABLET (FP) ONE (17:51)
[2017-02-27] MEDS: CEFTRIAXONE 2 GM in DEXTROSE 5%-WATER 100 ML IVPB SCH (17:55)
[2017-02-27] MEDS: LEVOFLOXACIN 500 MG, LEVOFLOXACIN 250 MG PO SCH (18:02)
--- NOTE | 2017-02-27 19:24 | PN ---
Progress Note, Physician - Current Medication List Current Medications: Active Medications Amlodipine Besylate (Norvasc -) 5 mg PO DAILY [facility] Last Admin: 02/27/17 11:06 Dose: 5 mg Aspirin (Ecotrin -) 81 mg PO DAILY [facility] Last Admin: 02/27/17 17:42 Dose: Not Given Collagenase (Santyl -) 1 applic TP DAILY [facility] Last Admin: 02/27/17 11:06 Dose: 1 applic Docusate Sodium (Colace -) 100 mg PO BID PRN PRN Reason: CONSTIPATION Docusate Sodium (Colace -) 300 mg PO HS [facility] Last Admin: 02/26/17 21:05 Dose: Not Given Heparin Sodium (Porcine) (Heparin -) 5,000 unit SQ BID [facility] Last Admin: 02/27/17 17:42 Dose: Not Given Hydrochlorothiazide (Hctz -) 25 mg PO BID [facility] Last Admin: 02/27/17 11:05 Dose: 25 mg IV Flush (Picc Line Flush) 8 ml IVPUSH PRN PRN PRN Reason: Protocol Ceftriaxone Sodium 2 gm/ (Dextrose) 100 mls @ 200 mls/hr IVPB DAILY [facility] Last Admin: 02/27/17 17:55 Dose: 200 mls/hr Insulin Aspart (Novolog Vial Sliding Scale -) 1 vial SQ ACHS [facility] PRN Reason: Protocol Last Admin: 02/27/17 17:57 Dose: 2 units Insulin Detemir (Levemir Vial) 37 units SQ AM [facility] Last Admin: 02/27/17 06:22 Dose: 37 unit Levofloxacin 500 mg/ (Levofloxacin 250 mg) 750 mg PO DAILY@0600 [facility] Last Admin: 02/27/17 18:02 Dose: 750 mg Metformin HCl (Glucophage -) 1,000 mg PO BIDI [facility] Last Admin: 02/27/17 17:56 Dose: 1,000 mg Metoprolol Succinate (Toprol Xl -) 25 mg PO DAILY [facility] Last Admin: 02/27/17 11:06 Dose: 25 mg Polyethylene Glycol (Miralax (For Daily Use) -) 17 gm PO DAILY [facility] Last Admin: 02/27/17 11:06 Dose: Not Given Senna (Senna -) 1 tab PO BID [facility] Last Admin: 02/27/17 11:05 Dose: 1 tab - Objective Vital Signs: Vital Signs Temperature 99.1 F 02/27/17 17:13 Pulse Rate 81 02/27/17 17:13 Respiratory Rate 18 02/27/17 17:13 Blood Pressure 145/68 02/27/17 17:13 O2 Sat by Pulse Oximetry (%) 98 02/27/17 09:00 Labs: CBC, BMP 02/26/17 06:00 02/26/17 06:00 Problem List - Problems (1) Osteomyelitis Code(s): M86.9 - OSTEOMYELITIS, UNSPECIFIED (2) Diabetes Code(s): E11.9 - TYPE 2 DIABETES MELLITUS WITHOUT COMPLICATIONS Qualifiers: Diabetes mellitus type: other specified (including LASHAY) Diabetes mellitus complication status: with hyperglycemia Diabetes mellitus shelter insulin use: unspecified shelter insulin use status Qualified Code (s): E13.65 - Other specified diabetes mellitus with hyperglycemia (3) HTN (hypertension) Code(s): I10 - ESSENTIAL (PRIMARY) HYPERTENSION (4) Morbid obesity Code(s): E66.01 - MORBID (SEVERE) OBESITY DUE TO EXCESS CALORIES
[2017-02-27] MEDS: DOCUSATE SODIUM 100 MG CAPSULE (FP) PO SCH (21:50)
[2017-02-27] MEDS: oxyCODONE HCL 5 MG TABLET PO PRN (22:49)
[2017-02-28] MEDS ORDERED: LEVOFLOXACIN 500 MG TABLET (FP) ONE (04:14)
[2017-02-28] MEDS ORDERED: LEVOFLOXACIN 250 MG TABLET (FP) ONE (04:14)
[2017-02-28] MEDS: INSULIN SLIDING SCALE (NOVOLOG) 1 VIAL SQ SCH ×3 (06:12→20:12)
[2017-02-28] MEDS: metFORMIN HCL 500 MG TABLET (FP) PO SCH ×2 (06:30→17:22)
[2017-02-28] MEDS: LEVOFLOXACIN 500 MG, LEVOFLOXACIN 250 MG PO SCH (06:30)
[2017-02-28] MEDS: INSULIN DETEMIR 100 UNITS/ML MDV SQ SCH (06:30)
[2017-02-28] MEDS ORDERED: DEXTROSE 5%-WATER 100 ML IVPB ONE (10:39)
[2017-02-28] MEDS: HEPARIN NA (PORCINE) 5,000 UNITS/ML 1ML VIAL SQ SCH ×2 (10:44→10:56)
[2017-02-28] MEDS: HYDROCHLOROTHIAZIDE 25 MG TABLET (FP) PO SCH (10:44)
[2017-02-28] MEDS: amLODIPine BESYLATE 5 MG TABLET (FP) PO SCH (10:44)
[2017-02-28] MEDS: CEFTRIAXONE 2 GM in DEXTROSE 5%-WATER 100 ML IVPB SCH (10:44)
[2017-02-28] MEDS: ASPIRIN COATED 81 MG TABLET.EC PO SCH (10:44)
[2017-02-28] MEDS: METOPROLOL SUCCINATE 25 MG TAB.SR.24H (FP) PO SCH (10:44)
[2017-02-28] MEDS: SENNOSIDES 8.6MG TABLET (FP) PO SCH (10:44)
[2017-02-28] MEDS: POLYETHYLENE GLYCOL 3350 119 GM BTL PO SCH (10:45)
[2017-02-28] MEDS: COLLAGENASE CLOSTRIDIUM HIST. 30 GRAMS TUBE TP SCH (10:45)
[2017-02-28] MEDS: oxyCODONE HCL 5 MG TABLET PO PRN (10:47)
[2017-02-28 11:17] VITALS: PULSE 92
--- NOTE | 2017-02-28 13:42 | PN ---
Progress Note, Physician History of Present Illness: patient doing well pain is the main issue had picc line placed - Current Medication List Current Medications: Active Medications Amlodipine Besylate (Norvasc -) 5 mg PO DAILY [facility] Last Admin: 02/28/17 10:44 Dose: 5 mg Aspirin (Ecotrin -) 81 mg PO DAILY [facility] Last Admin: 02/28/17 10:44 Dose: 81 mg Collagenase (Santyl -) 1 applic TP DAILY [facility] Last Admin: 02/28/17 10:45 Dose: 1 applic Docusate Sodium (Colace -) 100 mg PO BID PRN PRN Reason: CONSTIPATION Docusate Sodium (Colace -) 300 mg PO HS [facility] Last Admin: 02/27/17 21:50 Dose: 300 mg Heparin Sodium (Porcine) (Heparin -) 5,000 unit SQ BID [facility] Last Admin: 02/28/17 10:56 Dose: Not Given Hydrochlorothiazide (Hctz -) 25 mg PO BID [facility] Last Admin: 02/28/17 10:44 Dose: 25 mg IV Flush (Picc Line Flush) 8 ml IVPUSH PRN PRN PRN Reason: Protocol Ceftriaxone Sodium 2 gm/ (Dextrose) 100 mls @ 200 mls/hr IVPB DAILY [facility] Last Admin: 02/28/17 10:44 Dose: 200 mls/hr Insulin Aspart (Novolog Vial Sliding Scale -) 1 vial SQ ACHS [facility] PRN Reason: Protocol Last Admin: 02/28/17 06:12 Dose: Not Given Insulin Detemir (Levemir Vial) 37 units SQ AM [facility] Last Admin: 02/28/17 06:30 Dose: 37 unit Levofloxacin 500 mg/ (Levofloxacin 250 mg) 750 mg PO DAILY@0600 [facility] Last Admin: 02/28/17 06:30 Dose: 750 mg Metformin HCl (Glucophage -) 1,000 mg PO BIDI [facility] Last Admin: 02/28/17 06:30 Dose: 1,000 mg Metoprolol Succinate (Toprol Xl -) 25 mg PO DAILY [facility] Last Admin: 02/28/17 10:44 Dose: 25 mg Oxycodone HCl (Roxicodone -) 10 mg PO Q4H PRN PRN Reason: PAIN Last Admin: 02/28/17 10:47 Dose: 10 mg Polyethylene Glycol (Miralax (For Daily Use) -) 17 gm PO DAILY [facility] Last Admin: 02/28/17 10:45 Dose: Not Given Senna (Senna -) 1 tab PO BID [facility] Last Admin: 02/28/17 10:44 Dose: 1 tab - Objective Vital Signs: Vital Signs Temperature 99.1 F 02/28/17 10:29 Pulse Rate 92 H 02/28/17 10:29 Respiratory Rate 18 02/28/17 10:29 Blood Pressure 153/78 02/28/17 10:29 O2 Sat by Pulse Oximetry (%) 98 02/27/17 21:00 Constitutional: Yes: No Distress, Calm Cardiovascular: Yes: Regular Rate and Rhythm Respiratory: Yes: Regular, CTA Bilaterally Gastrointestinal: Yes: Normal Bowel Sounds, Soft Musculoskeletal: Yes: Other Extremities: Yes: Other Wound/Incision: Yes: Dressing Dry and Intact Neurological: Yes: Alert, Oriented Labs: CBC, BMP 02/26/17 06:00 02/26/17 06:00 Assessment/Plan osteo of the left foot abscess left foot cellulittis left foot gangrene left 5th toe dm leukocytosis fever plan abx changed patient for picc line continue abx for 4 more weeks wound care
[2017-02-28 14:18] VITALS: BP 139/76; TEMP 98.1
== END 2017-02-28 18:09 | disposition home or self-care (01) | DRG 710 ==
LOC: JER 09:25 → JERBED 15:58 → J7W 22:32
PROVIDERS: ADMIT Internal Medicine; ATTEND Internal Medicine
PROC: 0J9R00Z Drainage of Left Foot Subcutaneous Tissue and Fascia with Drainage Device, Open Approach (ICD-10-PCS; 2017-02-15)
PROC: 0JBR0ZZ Excision of Left Foot Subcutaneous Tissue and Fascia, Open Approach (ICD-10-PCS; principal; 2017-02-15 19:55)
PROC: 0QBR0ZZ Excision of Left Toe Phalanx, Open Approach (ICD-10-PCS; 2017-02-20)
PROC: 0J9R0ZX Drainage of Left Foot Subcutaneous Tissue and Fascia, Open Approach, Diagnostic (ICD-10-PCS; 2017-02-20)
PROC: 0L9 Tendons, Drainage (ICD-10-PCS; 2017-02-20)
PROC: 0Q9 Lower Bones, Drainage (ICD-10-PCS; 2017-02-20)
PROC: 02HV33Z Insertion of Infusion Device into Superior Vena Cava, Percutaneous Approach (ICD-10-PCS; 2017-02-28)
PROC: B5181ZA Fluoroscopy of Superior Vena Cava using Low Osmolar Contrast, Guidance (ICD-10-PCS; 2017-02-28)
DX: A41.9 Sepsis, unspecified organism (principal); I96 Gangrene, not elsewhere classified; L97.429 Non-pressure chronic ulcer of left heel and midfoot with unspecified severity; I10 Essential (primary) hypertension; E78.00 Pure hypercholesterolemia, unspecified; Z89.422 Acquired absence of other left toe(s); E11.69 Type 2 diabetes mellitus with other specified complication; M86.672 Other chronic osteomyelitis, left ankle and foot; E11.42 Type 2 diabetes mellitus with diabetic polyneuropathy; Z79.84 Long term (current) use of oral hypoglycemic drugs; L03.116 Cellulitis of left lower limb; B95.1 Streptococcus, group B, as the cause of diseases classified elsewhere; B96.4 Proteus (mirabilis) (morganii) as the cause of diseases classified elsewhere; L02.612 Cutaneous abscess of left foot; E66.01 Morbid (severe) obesity due to excess calories; Z68.39 Body mass index [BMI] 39.0-39.9, adult; Z71.3 Dietary counseling and surveillance; M72.6 Necrotizing fasciitis
CPT/HCPCS: 36415; 36569; 71010-TC; 73630-TC-LT; 73723-LT; 77001-TC; 80048; 80053; 81003; 81015; 82550; 82803; 83036; 83605; 84484; 85025; 85027; 86850; 86900; 86901; 87040; 87070; 87075; 87086; 87186; 87205; 88304-TC; 93005; 93010; 94760; 97116-GP; 97161-GP; 99283-25; C1751; G0480; J1644

== ENCOUNTER 2017-03-01 11:19 | Inpatient (IN) | payer OTHER ==
[2017-03-01 11:33] VITALS: BMI 37.2
--- NOTE | 2017-03-01 12:13 | PDOC ---
History of Present Illness - General Chief Complaint: Wound Infection Stated Complaint: SENT BY WOUND CARE Time Seen by Provider: 03/01/17 11:49 - History of Present Illness Initial Comments: 56 year old poorly controlled diabetic 8 da7s s/p left foot debridement (At previous amputation site) and recent hospital discharge presenting with pain of the debridement site with concern from his wound care service earlier this AM for re-evaluation of the foot wound. He is also confused on how to administer his IV ceftriaxone into his right arm med port. His most recent full amputation was in 04/2016 and he was recently admitted for infection of the amputation site needing debridement. He was discharged on 02/28 evening with schedule 4-5 weeks of antibiotics then saw his automotive glass specialist this morning who was concerned about the level of from the drainage of the site. He denies fevers, chills, nausea, vomiting, diarrhea, or any other sick symptoms. 03/01/17 14:21 Past History - Past Medical History Allergies/Adverse Reactions: Allergies Allergy/AdvReac Type Severity Reaction Status Date / Time No Known Allergies Allergy Verified 03/01/17 11:33 Home Medications: Ambulatory Orders Aspirin Coated [Ecotrin -] 81 mg PO DAILY #30 tablet.ec 04/25/16 Insulin (Levemir) [Levemir Vial] 30 units SQ AM 04/28/16 Amlodipine Besylate [Norvasc -] 5 mg PO DAILY 02/15/17 Esomeprazole Magnesium 40 mg PO BID 02/15/17 Hydrochlorothiazide [Hctz -] 25 mg PO BID 02/15/17 Metformin HCl [Glucophage -] 500 mg PO BID 02/15/17 Metoprolol Succinate [Toprol XL -] 25 mg PO DAILY 02/15/17 Ceftriaxone [Rocephin -] 2 gm IVPB DAILY #60 vial 02/28/17 Collagenase Clostridium Hist. [Santyl -] 1 applic TP DAILY #60 tube 02/28/17 Anemia: No Asthma: No Cancer: No Cardiac Disorders: Yes CVA: No COPD: No CHF: No Dementia: No Diabetes: Yes (IDDM) GI Disorders: Yes (HX.ULCER) Disorders: No HTN: Yes Hypercholesterolemia: Yes Liver Disease: No Suicide Attempt (Hx): No Seizures: No Thyroid Disease: No - Surgical History Abdominal Surgery: Yes (LEFT INGUINAL HERNIA REPAIR) Appendectomy: No Cardiac Surgery: No Cholecystectomy: No Lung Surgery: No Neurologic Surgery: No Orthopedic Surgery: Yes (right foot surgery, left 5th ray resection) - Psycho/Social/Smoking Cessation Hx Suicidal Ideation: No Smoking History: Current every day smoker Have you smoked in the past 12 months: No If you are a former smoker, when did you quit?: 1976 Information on smoking cessation initiated: No Hx Alcohol Use: No Drug/Substance Use Hx: No Substance Use Type: None Hx Substance Use Treatment: No Review of Systems - Review of Systems Constitutional: No: Chills, Diaphoresis, Fever, Loss of Appetite, Malaise, Night Sweats HEENTM: No: Blurred Vision, Recent change in vision Respiratory: No: Cough, Shortness of Breath, SOB with Exertion Cardiac (ROS): No: Chest Pain, Edema, Lightheadedness ABD/GI: No: Constipated, Diarrhea, Nausea, Poor Appetite, Vomiting : No: Dysuria, Discharge, Frequency Musculoskeletal: No: Back Pain, Joint Pain Integumentary: Yes: Change in Color, Erythema Neurological: No: Headache, Numbness, Paresthesia *Physical Exam - Vital Signs Last Vital Signs Temp Pulse Resp BP Pulse Ox 97.9 F 103 H 19 116/62 99 03/01/17 11:31 03/01/17 11:31 03/01/17 11:31 03/01/17 11:31 03/01/17 11:31 - Physical Exam General Appearance: Yes: Nourished. No: Appropriately Dressed, Apparent Distress HEENT: positive: EOMI, JOSSELYN, Normal Voice Neck: positive: Trachea midline, Normal Thyroid. negative: Tender, Rigid Respiratory/Chest: positive: Lungs Clear, Normal Breath Sounds. negative: Chest Tender, Respiratory Distress, Accessory Muscle Use Cardiovascular: positive: Regular Rhythm, Regular Rate, S1, S2. negative: Edema , JVD Gastrointestinal/Abdominal: positive: Normal Bowel Sounds, Flat, Soft. negative : Tender, Organomegaly Musculoskeletal: positive: Other (Left lower extremity with clean lateral foot debridement site overlying previous 4th and 5th digit amputation site. Some slight warmth, erythema, and swelling along juliane-lateral lower leg extending to 3cms below the tibial plateau. No purulent or malodorous discharge.). negative: Normal Inspection Extremity: positive: Normal Capillary Refill, Normal Range of Motion. negative : Normal Inspection Integumentary: positive: Warm, Erythema, Swelling, Other (Per above) Neurologic: positive: Fully Oriented, Alert, Normal Mood/Affect ED Treatment Course - LABORATORY CBC & Chemistry Diagram: 03/01/17 14:20 03/01/17 14:20 Medical Decision Making - Medical Decision Making 56 year old poorly controlled diabetic s/p recent left foot debridement presenting with some left lower extremity pain and warmth which is unclear to be resolution or worsening of his previous clinical condition given anter lateral tibial epidermal tenderness and erythema. The depbridement area looks clean and healign appropriately but the skin superior to that is concerning for cellulitis. Will get CBC and CMP then touch base with Dr. Oh for guidance. 03/01/17 14:28 03/01/17 14:[address] Oh, this cellulitis appears to be a new infection and the patient is unreliable about his medical history. We will admit the patietn to Dr. Oh and order ESR, CRP, wound cultures, blood cultures, then give some vancomycin as long as CMP is WNL. *DC/Admit/Observation/Transfer Diagnosis at time of Disposition: Cellulitis - Discharge Dispostion Condition at time of disposition: Stable Admit: Yes - Attestations Physician Attestion: 03/01/17 14:59 I, Dr. Karyn Drew, attest that this document has been prepared under my direction and personally reviewed by me in its entirety. I further attest, that it accurately reflects all work, treatment, procedures and medical decision -making performed by me.
--- NOTE | 2017-03-01 13:18 | PDOC ---
Attending Attestation - Resident Resident Name: Karyn Drew - ED Attending Attestation I have performed the following: I have examined & evaluated the patient, The case was reviewed & discussed with the resident, I agree w/resident's findings & plan, Exceptions are as noted - HPI HPI: 03/01/17 13:34 56y M hx of DM, recent amputation and l foot debirdement, and d/c yesterday presents back to ED for evaluation of worsening pain on his LLE. Pt also states he hasnt given himself his ctx because he wasnt sure how to administer. Pt denies any fever/chills, generalized weakness, but notes he has had increased swelling and pain oo his LLE. on exam pt PICC line on LUE (dressing seems to be coming off/loose, site appears c/d/i), debridgement site of LLE clean, heelling tissue with finbrinous materaial, no active drainge, +mild erythema/induration/warmth on anterior/ lateral red of LLE. concern for possible cellulitis will obtain blood work to trend - Physicial Exam PE: 03/02/17 17:33 see above - Medical Decision Making 03/02/17 17:33 see above
[2017-03-01] MEDS ORDERED: oxyCODONE HCL 5 MG TABLET PO ONE (13:30)
[2017-03-01] MEDS ORDERED: oxyCODONE HCL 5 MG TABLET ONE (14:11)
[2017-03-01 14:25] LABS: BASOPHIL 0.6 % (0-2.0); EOSINOPHIL 0.1 % (0-4.5); MCHC 32.7 g/dl (32.0-35.9); MEAN CELL VOLUME 82.7 fl (80-96); MEAN PLT VOLUME 6.9 fl (7.5-11.1); NEUTROPHILS 76.8 % (42.8-82.8); PLATELET COUNT 776 K/MM3 (134-434); WHITE BLOOD COUNT 10.6 K/mm3 (4.0-10.0)
[2017-03-01 14:54] LABS: ALBUMIN 2.8 g/dl (3.4-5.0); ANION GAP 11 (8-16); BILIRUBIN,TOTAL 0.7 mg/dL (0.2-1.0); C-REACTIVE PROTEIN 2.8 MG/DL (0.00-0.3); CALCIUM 9.6 mg/dL (8.5-10.1); CO2 28 mmol/L (21-32); GLUCOSE,RANDOM 100 mg/dL (74-106); SGOT/AST 12 U/L (15-37); SGPT/ALT 14 U/L (12-78)
[2017-03-01 14:55] LABS: ALK PHOS 101 U/L (45-117)
[2017-03-01 16:19] LABS: ERYTHROCYTE SEDIMENTATION RATE 130 mm/hr (0-20)
[2017-03-01] MEDS ORDERED: VANCOMYCIN 2,000 MG in DEXTROSE 5%-WATER - 500 ML IVPB STA (17:11)
[2017-03-01] MEDS: VANCOMYCIN 1 GRAM (PRE-DOCKED) 250 ML IVPB SCH ×2 (22:14→23:56)
[2017-03-02] MEDS: INSULIN SLIDING SCALE (NOVOLOG) 1 VIAL SQ SCH ×4 (06:20→22:02)
[2017-03-02] MEDS: metFORMIN HCL 500 MG TABLET (FP) PO SCH ×2 (06:21→17:12)
[2017-03-02] MEDS: INSULIN DETEMIR 100 UNITS/ML MDV SQ SCH (06:22)
[2017-03-02] MEDS ORDERED: INSULIN (NOVOLOG) ASPART 100 UNITS/ML 10ML VIAL ONE (06:50)
[2017-03-02] MEDS ORDERED: DEXTROSE 5%-WATER 100 ML IVPB ONE (09:15)
[2017-03-02] MEDS: CEFTRIAXONE 2 GM in DEXTROSE 5%-WATER 100 ML IVPB SCH (09:33)
[2017-03-02] MEDS: amLODIPine BESYLATE 5 MG TABLET (FP) PO SCH (09:35)
[2017-03-02] MEDS: HYDROCHLOROTHIAZIDE 25 MG TABLET (FP) PO SCH ×2 (09:35→22:02)
[2017-03-02] MEDS: ASPIRIN COATED 81 MG TABLET.EC PO SCH (09:35)
[2017-03-02] MEDS: METOPROLOL SUCCINATE 25 MG TAB.SR.24H (FP) PO SCH (09:35)
[2017-03-02] MEDS: PANTOPRAZOLE 40 MG TABLET (FP) PO SCH ×2 (09:35→22:02)
[2017-03-02] MEDS: HEPARIN NA (PORCINE) 5,000 UNITS/ML 1ML VIAL SQ SCH ×2 (09:35→22:02)
[2017-03-02] MEDS ORDERED: VANCOMYCIN 1,000 MG in DEXTROSE 5%-WATER - 250 ML IVPB SCH (10:00)
[2017-03-02] MEDS: COLLAGENASE CLOSTRIDIUM HIST. 30 GRAMS TUBE TP SCH (12:00)
--- NOTE | 2017-03-02 13:00 | CONSULT ---
Consult Consult Specialty:: Infectious Disease Reason for Consultation:: Infected Left foot amputation site - History of Present Illness Chief Complaint: pain and drainage in Lt foot wound/amputation site. History of Present Illness: 56 y.o. male with uncontrolled DM and history of Lt foot 4th and 5th toe amputation in 04/2016 recently hospitalized for infected wound site and underwent wound debridement. He was discharged 2 days ago on Ceftriaxone via PICC (Bone culture: Strep viridans, and agalactae) to continue for 4-5 wks. Patient was seen by wound doctor yesterday and noted to have increase in drainage and persistent pain. Pt denies fever, chills, abd pain/n/v/d, or any other specific complaints. 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 Cardio/Vascular: Yes: HTN, Hyperlipdemia Renal/: Yes: Renal Inusuff Infectious Disease: Yes: Other (LLE osteo on MRI here 06/2015) Endocrine: Yes: Diabetes Mellitus (on Victoza) - Past Surgical History Past Surgical History: Yes: Hernia Repair (left inguinal) - Alcohol/Substance Use Hx Alcohol Use: No History of Substance Use: reports: None - Smoking History Smoking history: Former smoker Have you smoked in the past 12 months: No If you are a former smoker, when did you quit?: 1976 - Social History ADL: Independent History of Recent Travel: No Home Medications - Allergies Allergies/Adverse Reactions: Allergies Allergy/AdvReac Type Severity Reaction Status Date / Time No Known Allergies Allergy Verified 03/01/17 11:33 - Home Medications Home Medications: Ambulatory Orders Aspirin Coated [Ecotrin -] 81 mg PO DAILY #30 tablet.ec 04/25/16 Insulin (Levemir) [Levemir Vial] 30 units SQ AM 04/28/16 Amlodipine Besylate [Norvasc -] 5 mg PO DAILY 02/15/17 Esomeprazole Magnesium 40 mg PO BID 02/15/17 Hydrochlorothiazide [Hctz -] 25 mg PO BID 02/15/17 Metformin HCl [Glucophage -] 500 mg PO BID 02/15/17 Metoprolol Succinate [Toprol XL -] 25 mg PO DAILY 02/15/17 Ceftriaxone [Rocephin -] 2 gm IVPB DAILY #60 vial 02/28/17 Collagenase Clostridium Hist. [Santyl -] 1 applic TP DAILY #60 tube 02/28/17 Physical Exam Vital Signs: Vital Signs Temperature 98.4 F 03/02/17 06:01 Pulse Rate 81 03/02/17 06:01 Respiratory Rate 20 03/02/17 06:01 Blood Pressure 144/77 03/02/17 06:01 O2 Sat by Pulse Oximetry (%) 99 03/01/17 21:00 Extremities: Yes: Amputation (Left 4th/5th toe), Calf Tenderness, Erythema ( mild erythema/warmth. Edema) Edema: Yes (up to lower calf) Wound/Incision: Yes: Draining (lateral foot 4/5 toe amputation, dorsal foot wound serous drainage, no malodor, tip of 3rd to necrotic) Problem List - Problems (1) Cellulitis Code(s): L03.90 - CELLULITIS, UNSPECIFIED Qualifiers: Site of cellulitis: extremity Site of cellulitis of extremity: lower extremity Laterality: left Qualified Code(s): L03.116 - Cellulitis of left lower limb (2) Osteomyelitis Code(s): M86.9 - OSTEOMYELITIS, UNSPECIFIED Qualifiers: Osteomyelitis location: foot Laterality: left Assessment/Plan Left foot amputation site infection/Osteomyelitis s/p recent debridement Continue Ceftriaxone follow up culture results If no improvement will consider add Vancomycin Pt currently stable, continue monitor
--- NOTE | 2017-03-02 13:36 | HP ---
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 Cardiovascular: Yes: HTN, Hyperlipdemia Renal/: Yes: Renal Inusuff Infectious Disease: Yes: Other (LLE osteo on MRI here 06/2015) Endocrine: Yes: Diabetes Mellitus (on Victoza) - Past Surgical History Past Surgical History: Yes: Hernia Repair (left inguinal) - Smoking History Smoking history: Former smoker Have you smoked in the past 12 months: No If you are a former smoker, when did you quit?: 1976 - Alcohol/Substance Use Hx Alcohol Use: No History of Substance Use: reports: None - Social History ADL: Independent History of Recent Travel: No Home Medications - Allergies Allergies/Adverse Reactions: Allergies Allergy/AdvReac Type Severity Reaction Status Date / Time No Known Allergies Allergy Verified 03/01/17 11:33 - Home Medications Home Medications: Ambulatory Orders Aspirin Coated [Ecotrin -] 81 mg PO DAILY #30 tablet.ec 04/25/16 Insulin (Levemir) [Levemir Vial] 30 units SQ AM 04/28/16 Amlodipine Besylate [Norvasc -] 5 mg PO DAILY 02/15/17 Esomeprazole Magnesium 40 mg PO BID 02/15/17 Hydrochlorothiazide [Hctz -] 25 mg PO BID 02/15/17 Metformin HCl [Glucophage -] 500 mg PO BID 02/15/17 Metoprolol Succinate [Toprol XL -] 25 mg PO DAILY 02/15/17 Ceftriaxone [Rocephin -] 2 gm IVPB DAILY #60 vial 02/28/17 Collagenase Clostridium Hist. [Santyl -] 1 applic TP DAILY #60 tube 02/28/17 Physical Examination Vital Signs: Vital Signs Temperature 98.4 F 03/02/17 06:01 Pulse Rate 81 03/02/17 06:01 Respiratory Rate 20 03/02/17 06:01 Blood Pressure 144/77 03/02/17 06:01 O2 Sat by Pulse Oximetry (%) 99 03/01/17 21:00
--- NOTE | 2017-03-02 15:14 | PN ---
Progress Note (short form) - Note Progress Note: S/ Patient seen at bedside, well known to me. He has no complaints and states he feesl much better as compared to yesterday. He denies N/V/F/C O/ VSS in NAD Left Foot: Drsssing removed 3rd toe tip gangrenous ( dry) Medial and lateral wounds mixed fibro granular base no drainage no mal odor No cellulits noted. Leg normal temp as compared to contra lateral side, no lymph adenopathy, His A/P ROM is non tender, he has no calf tenderness and no clinicla signs of DVT. Vital Signs Period Temp Pulse Resp BP Sys/Mclaughlin Pulse Ox Last 24 Hr 98.2 F-98.9 F 81-96 16-20 125-161/70-83 99-99 Abnormal Lab Results 03/01/17 14:20 WBC 10.6 H RBC 3.60 L Hgb 9.7 L Hct 29.7 L Plt Count 776 H MPV 6.9 L ESR 130 H A/ S/P I&D for deep wound infection with necrotic bone and soft tissue Left foot. Patitns condition is still guarded as far as limb salvage goes, however he does to seem to be improving daily as compared to previous visits. P/ 1) All notes read and appreciated 2) Rx VAC dressing to be applied to all wounds left foot ( order written) 3) Surgically stable, no need for further surgical intervention at this time , will laurie and amp distal 3rd toe ( once well demarcated ) on an out patietn basis. Leukocytosis most likely transient, repeat as I expect will be normal 4) D/C to home as per primary medical team 5) Have patietn follow up on Saturday in [facility] 6) Re consult as needed Thank You
[2017-03-03] MEDS: ACETAMINOPHEN 325 MG TABLET (FP) PO PRN ×2 (06:21→17:12)
[2017-03-03] MEDS: oxyCODONE HCL 5 MG TABLET PO PRN ×2 (06:21→17:15)
[2017-03-03] MEDS: metFORMIN HCL 500 MG TABLET (FP) PO SCH ×2 (06:21→17:11)
[2017-03-03] MEDS: INSULIN DETEMIR 100 UNITS/ML MDV SQ SCH (06:22)
[2017-03-03] MEDS: INSULIN SLIDING SCALE (NOVOLOG) 1 VIAL SQ SCH ×3 (06:25→17:11)
[2017-03-03 07:55] LABS: BASOPHIL 1.7 % (0-2.0); EOSINOPHIL 1.2 % (0-4.5); MCH 27.2 pg (25.7-33.7); MCHC 32.8 g/dl (32.0-35.9); MEAN CELL VOLUME 82.8 fl (80-96); MEAN PLT VOLUME 7.8 fl (7.5-11.1); NEUTROPHILS 63.5 % (42.8-82.8); PLATELET COUNT 714 K/MM3 (134-434); RDW 15.1 % (11.9-15.9); WHITE BLOOD COUNT 8.6 K/mm3 (4.0-10.0)
[2017-03-03 08:56] LABS: ALK PHOS 111 U/L (45-117); ANION GAP 10 (8-16); BILIRUBIN,TOTAL 0.6 mg/dL (0.2-1.0); CALCIUM 9.9 mg/dL (8.5-10.1); CO2 28 mmol/L (21-32); CREATININE 0.9 mg/dL (0.7-1.3); GLUCOSE,RANDOM 162 mg/dL (74-106); SGOT/AST 12 U/L (15-37); SGPT/ALT 15 U/L (12-78); TOT PROT 8.1 g/dl (6.4-8.2)
[2017-03-03] MEDS ORDERED: DEXTROSE 5%-WATER 100 ML IVPB ONE (09:22)
[2017-03-03] MEDS: PANTOPRAZOLE 40 MG TABLET (FP) PO SCH (09:44)
[2017-03-03] MEDS: HYDROCHLOROTHIAZIDE 25 MG TABLET (FP) PO SCH (09:44)
[2017-03-03] MEDS: amLODIPine BESYLATE 5 MG TABLET (FP) PO SCH (09:44)
[2017-03-03] MEDS: CEFTRIAXONE 2 GM in DEXTROSE 5%-WATER 100 ML IVPB SCH (09:44)
[2017-03-03] MEDS: METOPROLOL SUCCINATE 25 MG TAB.SR.24H (FP) PO SCH (09:45)
[2017-03-03] MEDS: HEPARIN NA (PORCINE) 5,000 UNITS/ML 1ML VIAL SQ SCH (09:45)
[2017-03-03] MEDS: ASPIRIN COATED 81 MG TABLET.EC PO SCH (09:45)
[2017-03-03 15:12] VITALS: BP 137/84; PULSE 91; TEMP 98.4
--- NOTE | 2017-03-03 16:36 | PN ---
Progress Note, Physician History of Present Illness: Pt wants to go home Denies fever/chills, currently without pain tolerating antibiotics States he feels well - Current Medication List Current Medications: Active Medications Acetaminophen (Tylenol -) 325 mg PO Q6H PRN PRN Reason: PAIN Last Admin: 03/03/17 06:21 Dose: 325 mg Amlodipine Besylate (Norvasc -) 5 mg PO DAILY [facility] Last Admin: 03/03/17 09:44 Dose: 5 mg Aspirin (Ecotrin -) 81 mg PO DAILY [facility] Last Admin: 03/03/17 09:45 Dose: 81 mg Collagenase (Santyl -) 1 applic TP DAILY [facility] Last Admin: 03/02/17 12:00 Dose: 1 applic Heparin Sodium (Porcine) (Heparin -) 5,000 unit SQ BID [facility] Last Admin: 03/03/17 09:45 Dose: 5,000 unit Hydrochlorothiazide (Hctz -) 25 mg PO BID [facility] Last Admin: 03/03/17 09:44 Dose: 25 mg Ceftriaxone Sodium 2 gm/ (Dextrose) 100 mls @ 200 mls/hr IVPB DAILY [facility] Last Admin: 03/03/17 09:44 Dose: 200 mls/hr Vancomycin HCl 1,000 mg/ (Dextrose) 250 mls @ 250 mls/hr IVPB BID [facility] PRN Reason: Protocol Insulin Aspart (Novolog Vial Sliding Scale -) 1 vial SQ ACHS [facility] PRN Reason: Protocol Last Admin: 03/03/17 11:48 Dose: 2 units Insulin Detemir (Levemir Vial) 30 units SQ AM [facility] Last Admin: 03/03/17 06:22 Dose: 30 units Metformin HCl (Glucophage -) 500 mg PO BIDI [facility] Last Admin: 03/03/17 06:21 Dose: 500 mg Metoprolol Succinate (Toprol Xl -) 25 mg PO DAILY [facility] Last Admin: 03/03/17 09:45 Dose: 25 mg Oxycodone HCl (Roxicodone -) 5 mg PO Q6H PRN PRN Reason: PAIN Last Admin: 03/03/17 06:21 Dose: 5 mg Pantoprazole Sodium (Protonix -) 40 mg PO BID [facility] Last Admin: 03/03/17 09:44 Dose: 40 mg - Objective Vital Signs: Vital Signs Temperature 98.4 F 03/03/17 15:11 Pulse Rate 91 H 03/03/17 15:11 Respiratory Rate 20 03/03/17 15:11 Blood Pressure 137/84 03/03/17 15:11 O2 Sat by Pulse Oximetry (%) 99 03/02/17 21:00 Constitutional: Yes: No Distress Cardiovascular: Yes: Regular Rate and Rhythm Respiratory: Yes: WNL Gastrointestinal: Yes: Normal Bowel Sounds, Soft Genitourinary: Yes: WNL Extremities: Yes: Amputation (Lt foot 4/5th toe/ray amputation site with mod amount serous drainage, No erythema but with mild warmth) Wound/Incision: Yes: Dressing Removed Labs: CBC, BMP 03/03/17 06:00 03/03/17 06:00 Problem List - Problems (1) Cellulitis Code(s): L03.90 - CELLULITIS, UNSPECIFIED Qualifiers: Site of cellulitis: extremity Site of cellulitis of extremity: lower extremity Laterality: left Qualified Code(s): L03.116 - Cellulitis of left lower limb (2) Osteomyelitis Code(s): M86.9 - OSTEOMYELITIS, UNSPECIFIED Qualifiers: Osteomyelitis location: foot Laterality: left Assessment/Plan Microbiology 03/01/17 16:00 Blood Culture - Preliminary Blood - Peripheral Venous NO GROWTH OBTAINED AFTER 48 HOURS, INCUBATION TO CONTINUE FOR 3 DAYS. 03/01/17 16:00 Blood Culture - Preliminary Blood - Peripheral Venous NO GROWTH OBTAINED AFTER 48 HOURS, INCUBATION TO CONTINUE FOR 3 DAYS. 03/01/17 14:54 Wound Culture - Preliminary Foot - Left Lateral Diphtheroid/Corynebacterium Left Foot Amp site Infection/OM s/p bone bx/culture on previous admission -- moderate wound drainage without purulence, pt clinically stable -- suggest continue on Ceftriaxone IV via PICC x 4 more weeks, however wounds may not heal despite antibiotic treatment -- recommend weekly cbc, bmp, esr, crp -- needs close f/u with podiatry
[2017-03-03] MEDS: COLLAGENASE CLOSTRIDIUM HIST. 30 GRAMS TUBE TP SCH (17:16)
--- NOTE | 2017-03-04 09:35 | EKG ---
Test Reason : Blood Pressure : / mmHG Vent. Rate : 088 BPM Atrial Rate : 088 BPM P-R Int : 170 ms QRS Dur : 074 ms QT Int : 364 ms P-R-T Axes : 049 028 067 degrees QTc Int : 440 ms NORMAL SINUS RHYTHM NONSPECIFIC T WAVE ABNORMALITY ABNORMAL ECG WHEN COMPARED WITH ECG OF 15-FEB-2017 11:34, NO SIGNIFICANT CHANGE WAS FOUND Confirmed by ALICE MAURICIO MD ([id number]) on 03/04/2017 9:35:04 AM Referred By: Confirmed By:ALICE MAURICIO MD
== END 2017-03-03 17:56 | disposition home or self-care (01) | DRG 344 ==
LOC: JER 11:19 → JERBED 15:00 → J6S 17:32
PROVIDERS: ADMIT Internal Medicine; ATTEND Internal Medicine
DX: E11.69 Type 2 diabetes mellitus with other specified complication (principal); M86.672 Other chronic osteomyelitis, left ankle and foot; B96.89 Other specified bacterial agents as the cause of diseases classified elsewhere; E11.65 Type 2 diabetes mellitus with hyperglycemia; E11.42 Type 2 diabetes mellitus with diabetic polyneuropathy; T81.4XXA Infection following a procedure, initial encounter; T87.44 Infection of amputation stump, left lower extremity; Z79.84 Long term (current) use of oral hypoglycemic drugs; E78.5 Hyperlipidemia, unspecified; I10 Essential (primary) hypertension; Y83.8 Other surgical procedures as the cause of abnormal reaction of the patient, or of later complication, without mention of misadventure at the time of the procedure; E11.52 Type 2 diabetes mellitus with diabetic peripheral angiopathy with gangrene; L03.116 Cellulitis of left lower limb
CPT/HCPCS: 36415; 80053; 85025; 85651; 86140; 87040; 87070; 87077; 87205; 93005; 93010; 99281-25; G0463-25; J1644

== ENCOUNTER 2017-04-08 13:01 | Inpatient (IN) | payer OTHER ==
[2017-04-08] MEDS ORDERED: SODIUM CHLORIDE 1,000 ML IV STA (13:52)
--- NOTE | 2017-04-08 13:54 | PDOC ---
History of Present Illness - General History Source: Patient Exam Limitations: No Limitations - History of Present Illness Initial Comments: 04/08/17 14:10 56 yo diabetic male has already had partial amputation of left foot.... now with infection to same that is not responding to the antibiotics and care from Dr. López in the wound centre. He was told to come to the ED to be admitted for an additional amputation. He has not other complaints or problems at present. Timing/Duration: other (Ongoing chronic problem) Severity: severe Modifying Factors: improves with: other (nothing seems to be helping.... antibiotics switched recently by ID, Dr. Cummings) Associated Symptoms: denies: denies symptoms Aspirin Received prior to arrival: No: no aspirin today <Erik Vazquez - Last Filed: 04/08/17 14:10> <Reagan Mackay - Last Filed: 04/08/17 15:59> - General Chief Complaint: Wound Infection Stated Complaint: WOUND INFECTION (PCP SENT) Time Seen by Provider: 04/08/17 13:48 Past History - Travel Traveled outside of the country in the last 30 days: No Close contact w/someone who was outside of country & ill: No - Past Medical History Anemia: No Asthma: No Cancer: No Cardiac Disorders: Yes CVA: No COPD: No CHF: No Dementia: No Diabetes: Yes (IDDM) GI Disorders: Yes (HX.ULCER) Disorders: No HTN: Yes Hypercholesterolemia: Yes Liver Disease: No Suicide Attempt (Hx): No Seizures: No Thyroid Disease: No - Surgical History Abdominal Surgery: Yes (LEFT INGUINAL HERNIA REPAIR) Appendectomy: No Cardiac Surgery: No Cholecystectomy: No Lung Surgery: No Neurologic Surgery: No Orthopedic Surgery: Yes (right foot surgery, left 5th ray resection) - Psycho/Social/Smoking Cessation Hx Suicidal Ideation: No Smoking History: Former smoker Have you smoked in the past 12 months: No If you are a former smoker, when did you quit?: 1976 Information on smoking cessation initiated: No Hx Alcohol Use: No Drug/Substance Use Hx: No Substance Use Type: None Hx Substance Use Treatment: No <Erik Vazquez - Last Filed: 04/08/17 14:10> <Raegan Mackay - Last Filed: 04/08/17 15:59> - Past Medical History Allergies/Adverse Reactions: Allergies Allergy/AdvReac Type Severity Reaction Status Date / Time No Known Allergies Allergy Verified 04/08/17 13:10 Home Medications: Ambulatory Orders Aspirin Coated [Ecotrin -] 81 mg PO DAILY #30 tablet.ec 04/25/16 Insulin (Levemir) [Levemir Vial] 30 units SQ AM 04/28/16 Amlodipine Besylate [Norvasc -] 5 mg PO DAILY 02/15/17 Esomeprazole Magnesium 40 mg PO BID 02/15/17 Hydrochlorothiazide [Hctz -] 25 mg PO BID 02/15/17 Metformin HCl [Glucophage -] 500 mg PO BID 02/15/17 Metoprolol Succinate [Toprol XL -] 25 mg PO DAILY 02/15/17 Ceftriaxone [Rocephin -] 2 gm IVPB DAILY #60 vial 02/28/17 Collagenase Clostridium Hist. [Santyl -] 1 applic TP DAILY #60 tube 02/28/17 Review of Systems - Review of Systems Able to Perform ROS?: Yes Is the patient limited Nepalese proficient: No Constitutional: No: Symptoms Reported HEENTM: No: Symptoms Reported Respiratory: No: Symptoms reported Cardiac (ROS): No: Symptoms Reported ABD/GI: No: Symptoms Reported : No: Symptoms Reported Musculoskeletal: Yes: See HPI Integumentary: No: Symptoms Reported Neurological: No: Symptoms reported Psychiatric: No: Anxiety, Depression Endocrine: No: Symptoms Reported Hematologic/Lymphatic: No: Symptoms Reported All Other Systems: Reviewed and Negative <Erik Vazquez - Last Filed: 04/08/17 14:10> *Physical Exam - Vital Signs Last Vital Signs Temp Pulse Resp BP Pulse Ox 99.5 F 99 H 18 181/89 100 04/08/17 13:06 04/08/17 13:06 04/08/17 13:06 04/08/17 13:06 04/08/17 13:06 - Physical Exam General Appearance: Yes: Nourished, Appropriately Dressed HEENT: positive: Normal ENT Inspection, Normal Voice Neck: positive: Trachea midline, Normal Thyroid, Supple. negative: Tender Respiratory/Chest: positive: Lungs Clear, Normal Breath Sounds. negative: Chest Tender, Respiratory Distress Cardiovascular: positive: Regular Rhythm, Regular Rate. negative: Murmur Gastrointestinal/Abdominal: positive: Normal Bowel Sounds, Flat, Soft. negative : Organomegaly Rectal Exam: positive: deferred Lymphatic: negative: Adenopathy, Tenderness Musculoskeletal: positive: Other (INfected Partial Amputation Left Foot/Dorsum) <Erik Vazquez - Last Filed: 04/08/17 14:10> - Vital Signs Last Vital Signs Temp Pulse Resp BP Pulse Ox 99.5 F 99 H 18 181/89 100 04/08/17 13:06 04/08/17 13:06 04/08/17 13:06 04/08/17 13:06 04/08/17 13:06 <Reagan Mackay - Last Filed: 04/08/17 15:59> Heart Score/ECG Review #1 04/08/17 15:58 Vent. rate 88 bpm NJ interval 152 ms QRS duration 66 ms QT/QTc 364/440 ms P-R-T axes 56 54 86 Normal sinus rhythm Normal ECG <Reagan Mackay - Last Filed: 04/08/17 15:59> ED Treatment Course - LABORATORY CBC & Chemistry Diagram: 04/08/17 13:57 04/08/17 13:57 - Medications Given in the ED: ED Medications Discontinued Medications Generic Name Dose Route Start Last Admin Trade Name Freq PRN Reason Stop Dose Admin Sodium Chloride 1,000 mls @ 1,000 mls/hr 04/08/17 13:52 04/08/17 14:19 Normal Saline - IV 04/08/17 14:51 1,000 mls/hr ASDIR STA Administration <Reagan Mackay - Last Filed: 04/08/17 15:59> *DC/Admit/Observation/Transfer - Discharge Dispostion Admit: Yes <Erik Vazquez - Last Filed: 04/08/17 14:10> <Reagan Mackay - Last Filed: 04/08/17 15:59> Diagnosis at time of Disposition: Diabetic infection of left foot Cellulitis Qualifiers: Site of cellulitis: extremity Site of cellulitis of extremity: lower extremity Laterality: left Qualified Code(s): L03.116 - Cellulitis of left lower limb - Discharge Dispostion Condition at time of disposition: Unchanged/Unknown - Referrals
[2017-04-08 14:25] LABS: VENOUS PH 7.39 (7.32-7.42)
[2017-04-08 14:26] LABS: VENOUS BLOOD GAS HCO3 27.3 meq/L (19-25)
[2017-04-08 14:27] LABS: EOSINOPHIL 1.7 % (0-4.5); MCHC 32.3 g/dl (32.0-35.9); MEAN CELL VOLUME 80.7 fl (80-96); MEAN PLT VOLUME 8.5 fl (7.5-11.1); NEUTROPHILS 68.6 % (42.8-82.8); PLATELET COUNT 377 K/MM3 (134-434); RDW 14.7 % (11.9-15.9); WHITE BLOOD COUNT 9.5 K/mm3 (4.0-10.0)
[2017-04-08] MEDS ORDERED: ERTAPENEM SODIUM 1 GM in SODIUM CHLORIDE 50 ML IVPB ONE (14:33)
[2017-04-08 14:38] LABS: INR 1.07 (0.82-1.09); PROTHROMBIN TIME (PATIENT) 11.8 SEC (9.98-11.88)
[2017-04-08 14:41] LABS: ACTIVATED PTT 33.5 SECONDS (26.9-34.4)
[2017-04-08 14:54] LABS: ALBUMIN 3.3 g/dl (3.4-5.0); ANION GAP 8 (8-16); BILIRUBIN,TOTAL 0.4 mg/dL (0.2-1.0); CALCIUM 8.4 mg/dL (8.5-10.1); CO2 28 mmol/L (21-32); CREATININE 0.9 mg/dL (0.7-1.3); GLUCOSE,RANDOM 294 mg/dL (74-106); SGOT/AST 11 U/L (15-37); SGPT/ALT 16 U/L (12-78); TOT PROT 7.5 g/dl (6.4-8.2)
[2017-04-08 14:57] LABS: ALK PHOS 137 U/L (45-117); CPK 68 IU/L (39-308); TROPONIN I < 0.02 ng/ml (0.00-0.05)
--- NOTE | 2017-04-08 15:21 | CONSULT ---
Consult Consult Specialty:: infectious diseases Referred by:: Reason for Consultation:: gangrene and non healing wounds of the leg - History of Present Illness Chief Complaint: non healing wounds and blackening of the toes History of Present Illness: 56 yo diabetic male has already had partial amputation of left foot.... now with infection to same that is not responding to the antibiotics and care from Dr. López in the wound centre. 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 Cardio/Vascular: Yes: HTN, Hyperlipdemia Renal/: Yes: Renal Inusuff Infectious Disease: Yes: Other (LLE osteo on MRI here 06/2015) Endocrine: Yes: Diabetes Mellitus (on Victoza) - Past Surgical History Past Surgical History: Yes: Hernia Repair (left inguinal) - Alcohol/Substance Use Hx Alcohol Use: No History of Substance Use: reports: None - Smoking History Smoking history: Former smoker Have you smoked in the past 12 months: No If you are a former smoker, when did you quit?: 1976 - Social History ADL: Independent History of Recent Travel: No Home Medications - Allergies Allergies/Adverse Reactions: Allergies Allergy/AdvReac Type Severity Reaction Status Date / Time No Known Allergies Allergy Verified 04/08/17 13:10 - Home Medications Home Medications: Ambulatory Orders Aspirin Coated [Ecotrin -] 81 mg PO DAILY #30 tablet.ec 04/25/16 Insulin (Levemir) [Levemir Vial] 30 units SQ AM 04/28/16 Amlodipine Besylate [Norvasc -] 5 mg PO DAILY 02/15/17 Esomeprazole Magnesium 40 mg PO BID 02/15/17 Hydrochlorothiazide [Hctz -] 25 mg PO BID 02/15/17 Metformin HCl [Glucophage -] 500 mg PO BID 02/15/17 Metoprolol Succinate [Toprol XL -] 25 mg PO DAILY 02/15/17 Ceftriaxone [Rocephin -] 2 gm IVPB DAILY #60 vial 02/28/17 Collagenase Clostridium Hist. [Santyl -] 1 applic TP DAILY #60 tube 02/28/17 Review of Systems - Review of Systems Constitutional: reports: No Symptoms Eyes: reports: No Symptoms HENT: reports: No Symptoms Neck: reports: No Symptoms Cardiovascular: reports: No Symptoms Respiratory: reports: No Symptoms Gastrointestinal: reports: No Symptoms Genitourinary: reports: No Symptoms Musculoskeletal: reports: Other Integumentary: reports: Erythema (left leg), Wound Neurological: reports: No Symptoms Endocrine: reports: No Symptoms Hematology/Lymphatic: reports: No Symptoms Psychiatric: reports: No Symptoms Physical Exam Vital Signs: Vital Signs Temperature 99.5 F 04/08/17 13:06 Pulse Rate 99 H 04/08/17 13:06 Respiratory Rate 18 04/08/17 13:06 Blood Pressure 181/89 04/08/17 13:06 O2 Sat by Pulse Oximetry (%) 100 04/08/17 13:06 Constitutional: Yes: Well Nourished, No Distress, Calm Eyes: Yes: Conjunctiva Clear Cardiovascular: Yes: Regular Rate and Rhythm Respiratory: Yes: Regular, CTA Bilaterally Gastrointestinal: Yes: Normal Bowel Sounds, Soft Musculoskeletal: Yes: Other Extremities: Yes: Other (cellulitis of the left leg with gangrene of the left 2 toes) Integumentary: Yes: Erythema, Other (gangrene of the toes) Neurological: Yes: Alert, Oriented Psychiatric: Yes: Alert Labs: CBC, BMP 04/08/17 13:57 04/08/17 13:57 Imaging - Results Chest X-ray: Report Reviewed, Image Reviewed Assessment/Plan Problem List - Problems (1) Cellulitis Code(s): L03.90 - CELLULITIS, UNSPECIFIED Qualifiers: Site of cellulitis: extremity Site of cellulitis of extremity: lower extremity Laterality: left Qualified Code(s): L03.116 - Cellulitis of left lower limb (2) Osteomyelitis Code(s): M86.9 - OSTEOMYELITIS, UNSPECIFIED Qualifiers: Osteomyelitis location: foot Laterality: left 3 gangrene of the toes plan continue ertapenam patient awaiting evaluation from podiatry wound care rest as per primary team
[2017-04-08 16:21] LABS: URINE APPEARANCE CLEAR; URINE BILIRUBIN NEGATIVE (NEGATIVE); URINE BLOOD NEGATIVE (NEGATIVE); URINE COLOR LTYELLOW; URINE GLUCOSE (UA) 3+ (NEGATIVE); URINE KETONE NEGATIVE (NEGATIVE); URINE LEUK ESTERASE NEGATIVE (NEGATIVE); URINE NITRITE NEGATIVE (NEGATIVE); URINE PROTEIN NEGATIVE (NEGATIVE); URINE UROBILINOGEN NEGATIVE mg/dL (0.2-1.0)
--- NOTE | 2017-04-08 18:49 | EKG ---
Test Reason : Blood Pressure : / mmHG Vent. Rate : 088 BPM Atrial Rate : 088 BPM P-R Int : 152 ms QRS Dur : 066 ms QT Int : 364 ms P-R-T Axes : 056 054 086 degrees QTc Int : 440 ms NORMAL SINUS RHYTHM NORMAL ECG WHEN COMPARED WITH ECG OF 01-MAR-2017 17:09, NO SIGNIFICANT CHANGE WAS FOUND Confirmed by ROSANGELA OSBORNE MD ([id number]) on 04/08/2017 6:49:06 PM Referred By: Confirmed By:ROSANGELA OSBORNE MD
--- NOTE | 2017-04-09 02:21 | HP ---
Admitting History and Physical - Admission History of Present Illness: Pt is a 56 y/o male w/ PMH significant for diabetes,HTN, HLD, CAD, peripheral neuropathy, CKD and s/p amputation 4th/5th toes(osteomyelitis) wc has not been healing. Pt dc'ed home in 02/25 w/ PIC line on iv ceftriaxone for 4 weeks tratment. Pt now sent to the ER by Dr Del Rio with infection to same that is not responding to the antibiotics and care from Dr. López in the wound centre. Pt found that his couple of left toes have now turned gangrenous associated with cellulitis of the leg. Despite changing antibxs there is no much improvement and pt sent for probable amputation. 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 Cardiovascular: Yes: HTN, Hyperlipdemia Renal/: Yes: Renal Inusuff Infectious Disease: Yes: Other (LLE osteo on MRI here 06/2015) Endocrine: Yes: Diabetes Mellitus (on Victoza) - Past Surgical History Past Surgical History: Yes: Hernia Repair (left inguinal) Additional Past Surgical History: Partial left 4th/5th toe amputation - Smoking History Smoking history: Former smoker Have you smoked in the past 12 months: No If you are a former smoker, when did you quit?: 1976 - Alcohol/Substance Use Hx Alcohol Use: No History of Substance Use: reports: None - Social History ADL: Independent History of Recent Travel: No Home Medications - Allergies Allergies/Adverse Reactions: Allergies Allergy/AdvReac Type Severity Reaction Status Date / Time No Known Allergies Allergy Verified 04/08/17 13:10 - Home Medications Home Medications: Ambulatory Orders Aspirin Coated [Ecotrin -] 81 mg PO DAILY #30 tablet.ec 04/25/16 Insulin (Levemir) [Levemir Vial] 30 units SQ AM 04/28/16 Amlodipine Besylate [Norvasc -] 5 mg PO DAILY 02/15/17 Esomeprazole Magnesium 40 mg PO BID 02/15/17 Hydrochlorothiazide [Hctz -] 25 mg PO BID 02/15/17 Metformin HCl [Glucophage -] 500 mg PO BID 02/15/17 Metoprolol Succinate [Toprol XL -] 25 mg PO DAILY 02/15/17 Ceftriaxone [Rocephin -] 2 gm IVPB DAILY #60 vial 02/28/17 Collagenase Clostridium Hist. [Santyl -] 1 applic TP DAILY #60 tube 02/28/17 Family Disease History - Family Disease History Family History: Unremarkable Review of Systems - Review of Systems Constitutional: reports: No Symptoms Eyes: reports: No Symptoms HENT: reports: No Symptoms Neck: reports: No Symptoms Cardiovascular: reports: No Symptoms Respiratory: reports: No Symptoms Gastrointestinal: reports: No Symptoms Physical Examination Vital Signs: Vital Signs Temperature 98.5 F 04/08/17 19:25 Pulse Rate 81 04/08/17 19:25 Respiratory Rate 18 04/08/17 19:25 Blood Pressure 160/95 04/08/17 19:25 O2 Sat by Pulse Oximetry (%) 99 04/08/17 19:25 Constitutional: Yes: Well Nourished Neck: Yes: WNL, Supple Cardiovascular: Yes: WNL, Regular Rate and Rhythm Respiratory: Yes: WNL, Regular, CTA Bilaterally Gastrointestinal: Yes: WNL, Normal Bowel Sounds, Soft Musculoskeletal: Yes: WNL Extremities: Yes: Other ((+) gangrenous changes lt foot) Edema: No Labs: CBC, BMP 04/08/17 13:57 04/08/17 13:57 Problem List - Problems (1) Diabetic infection of left foot Assessment/Plan: H/O osteo IV antibxs as per ID Follow cultures Code(s): E11.69 - TYPE 2 DIABETES MELLITUS WITH OTHER SPECIFIED COMPLICATION L08.9 - LOCAL INFECTION OF THE SKIN AND SUBCUTANEOUS TISSUE, UNSP (2) Diabetes Assessment/Plan: Cont metformin/levemir/sliding scale w/ coverage Code(s): E11.9 - TYPE 2 DIABETES MELLITUS WITHOUT COMPLICATIONS Qualifiers: Diabetes mellitus type: other specified (including LASHAY) Diabetes mellitus complication status: with hyperglycemia Diabetes mellitus jail insulin use: unspecified supervisor intermediates insulin use status Qualified Code (s): E13.65 - Other specified diabetes mellitus with hyperglycemia; Z79.4 - longterm (current) use of insulin (3) HTN (hypertension) Assessment/Plan: BP stable Cont norvasc/toprol/asa Code(s): I10 - ESSENTIAL (PRIMARY) HYPERTENSION (4) Peripheral neuropathy Code(s): G62.9 - POLYNEUROPATHY, UNSPECIFIED (5) Morbid obesity Code(s): E66.01 - MORBID (SEVERE) OBESITY DUE TO EXCESS CALORIES
[2017-04-09] MEDS: INSULIN DETEMIR 100 UNITS/ML MDV SQ SCH (06:39)
[2017-04-09] MEDS: INSULIN SLIDING SCALE (NOVOLOG) 1 VIAL SQ SCH ×4 (06:39→23:12)
[2017-04-09] MEDS: metFORMIN HCL 500 MG TABLET (FP) PO SCH ×2 (06:40→16:46)
[2017-04-09 08:13] VITALS: BMI 38.2
[2017-04-09] MEDS ORDERED: PT OWN MED DRAWER 7, Y5N ONE (09:09)
[2017-04-09] MEDS: METOPROLOL SUCCINATE 25 MG TAB.SR.24H (FP) PO SCH (09:15)
[2017-04-09] MEDS: PANTOPRAZOLE 40 MG TABLET (FP) PO SCH (09:15)
[2017-04-09] MEDS: amLODIPine BESYLATE 5 MG TABLET (FP) PO SCH (09:15)
[2017-04-09] MEDS: ASPIRIN COATED 81 MG TABLET.EC PO SCH (09:16)
[2017-04-09] MEDS: HEPARIN NA (PORCINE) 5,000 UNITS/ML 1ML VIAL SQ SCH ×2 (09:16→23:07)
[2017-04-09] MEDS: HYDROCHLOROTHIAZIDE 25 MG TABLET (FP) PO SCH ×2 (09:16→23:07)
[2017-04-09 09:44] LABS: BASOPHIL 0.6 % (0-2.0); EOSINOPHIL 2.6 % (0-4.5); MCH 26.2 pg (25.7-33.7); MCHC 32.1 g/dl (32.0-35.9); MEAN CELL VOLUME 81.5 fl (80-96); MEAN PLT VOLUME 8.4 fl (7.5-11.1); NEUTROPHILS 61.2 % (42.8-82.8); PLATELET COUNT 372 K/MM3 (134-434); RDW 14.9 % (11.9-15.9); WHITE BLOOD COUNT 8.2 K/mm3 (4.0-10.0)
[2017-04-09] MEDS: ERTAPENEM SODIUM 1 GM in SODIUM CHLORIDE 50 ML IVPB SCH (10:29)
[2017-04-09 11:12] LABS: ALBUMIN 3.3 g/dl (3.4-5.0); ALK PHOS 132 U/L (45-117); ANION GAP 6 (8-16); BILIRUBIN,TOTAL 0.6 mg/dL (0.2-1.0); CO2 30 mmol/L (21-32); CREATININE 0.7 mg/dL (0.7-1.3); GLUCOSE,RANDOM 211 mg/dL (74-106); SGOT/AST 8 U/L (15-37); SGPT/ALT 14 U/L (12-78); TOT PROT 7.4 g/dl (6.4-8.2)
--- NOTE | 2017-04-09 14:20 | PN ---
Progress Note, Physician History of Present Illness: patient doing well no complaints await for being evaluated - Current Medication List Current Medications: Active Medications Amlodipine Besylate (Norvasc -) 5 mg PO DAILY [facility] Last Admin: 04/09/17 09:15 Dose: 5 mg Aspirin (Ecotrin -) 81 mg PO DAILY [facility] Last Admin: 04/09/17 09:16 Dose: 81 mg Heparin Sodium (Porcine) (Heparin -) 5,000 unit SQ BID [facility] Last Admin: 04/09/17 09:16 Dose: 5,000 unit Hydrochlorothiazide (Hctz -) 25 mg PO BID [facility] Last Admin: 04/09/17 09:16 Dose: 25 mg Ertapenem 1 gm/ Sodium (Chloride) 50 mls @ 50 mls/hr IVPB DAILY [facility] PRN Reason: Protocol Last Admin: 04/09/17 10:29 Dose: 50 mls/hr Insulin Aspart (Novolog Vial Sliding Scale -) 1 vial SQ ACHS [facility] PRN Reason: Protocol Last Admin: 04/09/17 11:41 Dose: 4 units Insulin Detemir (Levemir Vial) 30 units SQ AM [facility] Last Admin: 04/09/17 06:39 Dose: 30 units Metformin HCl (Glucophage -) 500 mg PO BIDI [facility] Last Admin: 04/09/17 06:40 Dose: 500 mg Metoprolol Succinate (Toprol Xl -) 25 mg PO DAILY [facility] Last Admin: 04/09/17 09:15 Dose: 25 mg Pantoprazole Sodium (Protonix -) 40 mg PO DAILY [facility] Last Admin: 04/09/17 09:15 Dose: 40 mg - Objective Vital Signs: Vital Signs Temperature 98.2 F 04/09/17 14:09 Pulse Rate 84 04/09/17 14:09 Respiratory Rate 20 04/09/17 14:09 Blood Pressure 154/85 04/09/17 14:09 O2 Sat by Pulse Oximetry (%) 100 04/09/17 09:00 Constitutional: Yes: No Distress, Calm Respiratory: Yes: Regular, CTA Bilaterally Gastrointestinal: Yes: Normal Bowel Sounds, Soft Musculoskeletal: Yes: WNL Extremities: Yes: Other Neurological: Yes: Alert, Oriented Psychiatric: Yes: Alert, Oriented Labs: CBC, BMP 04/09/17 09:00 04/09/17 09:00 INR, PTT INR 1.07 (0.82-1.09) 04/08/17 13:57 Assessment/Plan Problem List - Problems (1) Cellulitis Code(s): L03.90 - CELLULITIS, UNSPECIFIED Qualifiers: Site of cellulitis: extremity Site of cellulitis of extremity: lower extremity Laterality: left Qualified Code(s): L03.116 - Cellulitis of left lower limb (2) Osteomyelitis Code(s): M86.9 - OSTEOMYELITIS, UNSPECIFIED Qualifiers: Osteomyelitis location: foot Laterality: left 3 gangrene of the toes plan continue ertapenam patient awaiting evaluation from podiatry wound care rest as per primary team
[2017-04-10] MEDS: INSULIN SLIDING SCALE (NOVOLOG) 1 VIAL SQ SCH ×4 (06:38→22:53)
[2017-04-10] MEDS: INSULIN DETEMIR 100 UNITS/ML MDV SQ SCH (06:38)
[2017-04-10] MEDS: metFORMIN HCL 500 MG TABLET (FP) PO SCH ×2 (06:38→17:37)
[2017-04-10] MEDS: amLODIPine BESYLATE 5 MG TABLET (FP) PO SCH (09:08)
[2017-04-10] MEDS: HEPARIN NA (PORCINE) 5,000 UNITS/ML 1ML VIAL SQ SCH ×2 (09:08→22:53)
[2017-04-10] MEDS: PANTOPRAZOLE 40 MG TABLET (FP) PO SCH (09:08)
[2017-04-10] MEDS: HYDROCHLOROTHIAZIDE 25 MG TABLET (FP) PO SCH ×2 (09:08→22:54)
[2017-04-10] MEDS: METOPROLOL SUCCINATE 25 MG TAB.SR.24H (FP) PO SCH (09:08)
[2017-04-10] MEDS: ASPIRIN COATED 81 MG TABLET.EC PO SCH (09:08)
[2017-04-10] MEDS ORDERED: PT OWN MED DRAWER 7, Y5N ONE (10:30)
[2017-04-10] MEDS: ERTAPENEM SODIUM 1 GM in SODIUM CHLORIDE 50 ML IVPB SCH (10:32)
[2017-04-10] MEDS ORDERED: INSULIN (NOVOLOG) ASPART 100 UNITS/ML 10ML VIAL ONE (11:04)
[2017-04-10] MEDS ORDERED: VANCOMYCIN 1,250 MG in DEXTROSE 5%-WATER - 250 ML IVPB ONE (11:30)
--- NOTE | 2017-04-10 11:38 | PN ---
Progress Note (short form) - Note Progress Note: [facility] Pt seen and examined wound care center the other day. He is under the care of Dr. Ragland - podiatry. He has partial foot amputation, with picc line. Not responding to antibiotics, so sent into ER by Dr. Cummings. Pt might need amputation of toes. Pt has palpable pulses. Please consult Dr. Ragland for possible toe amputation. ID to change antibiotics. Santyl to all wounds daily. Arsh López DO
--- NOTE | 2017-04-10 13:22 | PN ---
Progress Note (short form) - Note Progress Note: PODIATRY NOTE Pt seen and examined wound care center the other day. He has been under my care. He has partial foot amputation, with picc line. Not responding to antibiotics, so sent into ER by Dr. Cummings. Pt needs amputation of 2md & 3rd toes left foot due to Gangrene. Pt has palpable pulses. Will Schedule for amputaion. Antibiotics as per ID. Santyl to all wounds daily, order written. Vital Signs Period Temp Pulse Resp BP Sys/Mclaughlin Pulse Ox Last 24 Hr 97.9 F-98.5 F 80-91 16-20 136-160/73-90 99-99 CBC,CMP WBC 8.2 K/mm3 (4.0-10.0) 04/09/17 09:00 RBC 4.06 M/mm3 (4.00-5.60) 04/09/17 09:00 Hgb 10.6 GM/dL (11.7-16.9) L 04/09/17 09:00 Hct 33.1 % (35.4-49) L 04/09/17 09:00 MCV 81.5 fl (80-96) 04/09/17 09:00 MCH 26.2 pg (25.7-33.7) 04/09/17 09:00 MCHC 32.1 g/dl (32.0-35.9) 04/09/17 09:00 RDW 14.9 % (11.9-15.9) 04/09/17 09:00 Plt Count 372 K/MM3 (134-434) 04/09/17 09:00 MPV 8.4 fl (7.5-11.1) 04/09/17 09:00 Neutrophils % 61.2 % (42.8-82.8) 04/09/17 09:00 Lymphocytes % 27.9 % (8-40) D 04/09/17 09:00 Monocytes % 7.7 % (3.8-10.2) 04/09/17 09:00 Eosinophils % 2.6 % (0-4.5) 04/09/17 09:00 Basophils % 0.6 % (0-2.0) 04/09/17 09:00 Sodium 135 mmol/L (136-145) L 04/09/17 09:00 Potassium 4.7 mmol/L (3.5-5.1) 04/09/17 09:00 Chloride 99 mmol/L (98-107) 04/09/17 09:00 Carbon Dioxide 30 mmol/L (21-32) 04/09/17 09:00 Anion Gap 6 (8-16) L 04/09/17 09:00 BUN 10 mg/dL (7-18) D 04/09/17 09:00 Creatinine 0.7 mg/dL (0.7-1.3) D 04/09/17 09:00 Creat Clearance w eGFR > 60 (>60) 04/09/17 09:00 POC Glucometer 249 UNITS (()) 04/10/17 11:11 Random Glucose 211 mg/dL (74-106) H D 04/09/17 09:00 Hemoglobin A1c % 8.3 % (4.8-6.0) H D 04/09/17 09:00 Lactic Acid 1.8 mmol/L (0.4-2.0) 04/08/17 13:57 Calcium 9.0 mg/dL (8.5-10.1) 04/09/17 09:00 Total Bilirubin 0.6 mg/dL (0.2-1.0) D 04/09/17 09:00 AST 8 U/L (15-37) L D 04/09/17 09:00 ALT 14 U/L (12-78) 04/09/17 09:00 Alkaline Phosphatase 132 U/L (45-117) H 04/09/17 09:00 Creatine Kinase 68 IU/L (39-308) 04/08/17 13:57 Troponin I < 0.02 ng/ml (0.00-0.05) 04/08/17 13:57 Total Protein 7.4 g/dl (6.4-8.2) 04/09/17 09:00 Albumin 3.3 g/dl (3.4-5.0) L 04/09/17 09:00 A/P Gangren 2&3rd toes Left foot Wounds Clean dry and responding well to VAC therapy Santyl Order written Patietn OR tomorrow
--- NOTE | 2017-04-10 23:45 | PN ---
Progress Note, Physician History of Present Illness: Pt for amputation in am - Current Medication List Current Medications: Active Medications Amlodipine Besylate (Norvasc -) 5 mg PO DAILY [facility] Last Admin: 04/10/17 09:08 Dose: 5 mg Aspirin (Ecotrin -) 81 mg PO DAILY [facility] Last Admin: 04/10/17 09:08 Dose: 81 mg Collagenase (Santyl -) 1 applic TP DAILY [facility] Heparin Sodium (Porcine) (Heparin -) 5,000 unit SQ BID [facility] Last Admin: 04/10/17 22:53 Dose: 5,000 unit Hydrochlorothiazide (Hctz -) 25 mg PO BID [facility] Last Admin: 04/10/17 22:54 Dose: 25 mg Ertapenem 1 gm/ Sodium (Chloride) 50 mls @ 50 mls/hr IVPB DAILY [facility] PRN Reason: Protocol Last Admin: 04/10/17 10:32 Dose: 50 mls/hr Insulin Aspart (Novolog Vial Sliding Scale -) 1 vial SQ ACHS [facility] PRN Reason: Protocol Last Admin: 04/10/17 22:53 Dose: 2 units Insulin Detemir (Levemir Vial) 30 units SQ AM [facility] Last Admin: 04/10/17 06:38 Dose: 30 units Metformin HCl (Glucophage -) 500 mg PO BIDI [facility] Last Admin: 04/10/17 17:37 Dose: 500 mg Metoprolol Succinate (Toprol Xl -) 25 mg PO DAILY [facility] Last Admin: 04/10/17 09:08 Dose: 25 mg Pantoprazole Sodium (Protonix -) 40 mg PO DAILY [facility] Last Admin: 04/10/17 09:08 Dose: 40 mg - Objective Vital Signs: Vital Signs Temperature 97.8 F 04/10/17 18:20 Pulse Rate 82 04/10/17 18:20 Respiratory Rate 20 04/10/17 18:20 Blood Pressure 135/78 04/10/17 18:20 O2 Sat by Pulse Oximetry (%) 99 04/10/17 09:00 Constitutional: Yes: Well Nourished, Obese Neck: Yes: WNL, Supple Cardiovascular: Yes: WNL, Regular Rate and Rhythm Respiratory: Yes: WNL, Regular, CTA Bilaterally Gastrointestinal: Yes: WNL, Normal Bowel Sounds, Soft, Abdomen, Obese Extremities: Yes: Other (Amputation 4th/5th toes w/ surrounding gangrenous changes) Labs: CBC, BMP 04/09/17 09:00 04/09/17 09:00 INR, PTT INR 1.07 (0.82-1.09) 04/08/17 13:57 Problem List - Problems (1) Diabetic infection of left foot Assessment/Plan: H/O osteo/gangrene Wound culture grew MRSA/grp strept Follow BC Cont IV ivnaz Pt was given dose of IV vanco Pt for amputation in am Code(s): E11.69 - TYPE 2 DIABETES MELLITUS WITH OTHER SPECIFIED COMPLICATION L08.9 - LOCAL INFECTION OF THE SKIN AND SUBCUTANEOUS TISSUE, UNSP (2) Diabetes Assessment/Plan: Will hold metformin/levemir for surgery Cont Sliding scale w/ coverge Code(s): E11.9 - TYPE 2 DIABETES MELLITUS WITHOUT COMPLICATIONS Qualifiers: Diabetes mellitus type: other specified (including LASHAY) Diabetes mellitus complication status: with hyperglycemia Diabetes mellitus half-way insulin use: unspecified half-way insulin use status Qualified Code (s): E13.65 - Other specified diabetes mellitus with hyperglycemia; Z79.4 - custodial (current) use of insulin (3) HTN (hypertension) Assessment/Plan: BP stable Cont norvasc/toprol/asa Code(s): I10 - ESSENTIAL (PRIMARY) HYPERTENSION (4) Chronic CHF Code(s): I50.9 - HEART FAILURE, UNSPECIFIED
[2017-04-11] MEDS: INSULIN SLIDING SCALE (NOVOLOG) 1 VIAL SQ SCH ×4 (06:28→23:57)
[2017-04-11] MEDS ORDERED: COLLAGENASE CLOSTRIDIUM HIST. 30 GRAMS TUBE TP SCH (10:00)
[2017-04-11 10:09] LABS: BASOPHIL 0.5 % (0-2.0); EOSINOPHIL 1.5 % (0-4.5); MCH 25.4 pg (25.7-33.7); MCHC 31.6 g/dl (32.0-35.9); MEAN CELL VOLUME 80.2 fl (80-96); MEAN PLT VOLUME 8.4 fl (7.5-11.1); NEUTROPHILS 67.5 % (42.8-82.8); PLATELET COUNT 430 K/MM3 (134-434); RDW 14.8 % (11.9-15.9); WHITE BLOOD COUNT 8.9 K/mm3 (4.0-10.0)
[2017-04-11] MEDS: HYDROCHLOROTHIAZIDE 25 MG TABLET (FP) PO SCH (10:31)
[2017-04-11] MEDS: ERTAPENEM SODIUM 1 GM in SODIUM CHLORIDE 50 ML IVPB SCH (10:32)
[2017-04-11] MEDS: METOPROLOL SUCCINATE 25 MG TAB.SR.24H (FP) PO SCH (10:33)
[2017-04-11] MEDS: amLODIPine BESYLATE 5 MG TABLET (FP) PO SCH (10:33)
[2017-04-11 10:34] LABS: ALBUMIN 4.1 g/dl (3.4-5.0); CO2 31 mmol/L (21-32); GLUCOSE,RANDOM 201 mg/dL (74-106); SGOT/AST 7 U/L (15-37); SGPT/ALT 16 U/L (12-78)
[2017-04-11 11:02] LABS: ALK PHOS 131 U/L (45-117); BILIRUBIN,TOTAL 0.6 mg/dL (0.2-1.0); CALCIUM 9.9 mg/dL (8.5-10.1); CREATININE 0.8 mg/dL (0.7-1.3); TOT PROT 7.7 g/dl (6.4-8.2)
[2017-04-11 11:50] LABS: ANION GAP 9 (8-16)
--- NOTE | 2017-04-11 14:25 | PN ---
Progress Note, Physician History of Present Illness: patient doing well no complaints patient for surgery tomorrow - Current Medication List Current Medications: Active Medications Amlodipine Besylate (Norvasc -) 5 mg PO DAILY [facility] Last Admin: 04/11/17 10:33 Dose: 5 mg Aspirin (Ecotrin -) 81 mg PO DAILY [facility] Last Admin: 04/10/17 09:08 Dose: 81 mg Collagenase (Santyl -) 1 applic TP DAILY [facility] Last Admin: 04/11/17 14:10 Dose: 1 applic Heparin Sodium (Porcine) (Heparin -) 5,000 unit SQ BID [facility] Last Admin: 04/10/17 22:53 Dose: 5,000 unit Hydrochlorothiazide (Hctz -) 25 mg PO BID [facility] Last Admin: 04/11/17 10:31 Dose: Not Given Insulin Aspart (Novolog Vial Sliding Scale -) 1 vial SQ [facility] PRN Reason: Protocol Last Admin: 04/11/17 11:12 Dose: Not Given Insulin Detemir (Levemir Vial) 30 units SQ AM [facility] Last Admin: 04/10/17 06:38 Dose: 30 units Metformin HCl (Glucophage -) 500 mg PO BIDI [facility] Last Admin: 04/10/17 17:37 Dose: 500 mg Metoprolol Succinate (Toprol Xl -) 25 mg PO DAILY [facility] Last Admin: 04/11/17 10:33 Dose: 25 mg Pantoprazole Sodium (Protonix -) 40 mg PO DAILY [facility] Last Admin: 04/10/17 09:08 Dose: 40 mg - Objective Vital Signs: Vital Signs Temperature 97.8 F 04/11/17 10:00 Pulse Rate 82 04/11/17 10:00 Respiratory Rate 20 04/11/17 10:00 Blood Pressure 159/76 04/11/17 10:00 O2 Sat by Pulse Oximetry (%) 99 04/10/17 21:00 Constitutional: Yes: No Distress, Calm Neck: Yes: Supple Cardiovascular: Yes: Regular Rate and Rhythm Respiratory: Yes: Regular, CTA Bilaterally Gastrointestinal: Yes: Normal Bowel Sounds, Soft Musculoskeletal: Yes: WNL Extremities: Yes: Other Wound/Incision: Yes: Dressing Dry and Intact Neurological: Yes: Alert, Oriented Psychiatric: Yes: Alert, Oriented Labs: CBC, BMP 04/11/17 10:00 04/11/17 10:00 INR, PTT INR 1.07 (0.82-1.09) 04/08/17 13:57 Assessment/Plan Problem List - Problems (1) Cellulitis Code(s): L03.90 - CELLULITIS, UNSPECIFIED Qualifiers: Site of cellulitis: extremity Site of cellulitis of extremity: lower extremity Laterality: left Qualified Code(s): L03.116 - Cellulitis of left lower limb (2) Osteomyelitis Code(s): M86.9 - OSTEOMYELITIS, UNSPECIFIED Qualifiers: Osteomyelitis location: foot Laterality: left 3 gangrene of the toes plan stopped ertapenam continue vanco rest as per surgery await for all cx
--- NOTE | 2017-04-11 16:45 | PN ---
Progress Note (short form) - Note Progress Note: PODIATRY PRE OP Patient for amputaion 3rd possible second toes all left foot due to gangrene Patietn explained need for prodecure no gurantess givwn or impled as to the outcome and the need for possible future surgery expained, all patients questions answered to his satisfaction and consent was obtained Vital Signs Period Temp Pulse Resp BP Sys/Mclaughlin Pulse Ox Last 24 Hr 97.7 F-98.1 F 58-82 17-20 135-159/64-80 99-99 CBC,CMP WBC 8.9 K/mm3 (4.0-10.0) 04/11/17 10:00 RBC 4.61 M/mm3 (4.00-5.60) 04/11/17 10:00 Hgb 11.7 GM/dL (11.7-16.9) D 04/11/17 10:00 Hct 36.9 % (35.4-49) 04/11/17 10:00 MCV 80.2 fl (80-96) 04/11/17 10:00 MCH 25.4 pg (25.7-33.7) L 04/11/17 10:00 MCHC 31.6 g/dl (32.0-35.9) L 04/11/17 10:00 RDW 14.8 % (11.9-15.9) 04/11/17 10:00 Plt Count 430 K/MM3 (134-434) 04/11/17 10:00 MPV 8.4 fl (7.5-11.1) 04/11/17 10:00 Neutrophils % 67.5 % (42.8-82.8) 04/11/17 10:00 Lymphocytes % 24.4 % (8-40) 04/11/17 10:00 Monocytes % 6.1 % (3.8-10.2) 04/11/17 10:00 Eosinophils % 1.5 % (0-4.5) 04/11/17 10:00 Basophils % 0.5 % (0-2.0) 04/11/17 10:00 Sodium 137 mmol/L (136-145) 04/11/17 10:00 Potassium 3.6 mmol/L (3.5-5.1) D 04/11/17 10:00 Chloride 97 mmol/L (98-107) L 04/11/17 10:00 Carbon Dioxide 31 mmol/L (21-32) 04/11/17 10:00 Anion Gap 9 (8-16) 04/11/17 10:00 BUN 19 mg/dL (7-18) H D 04/11/17 10:00 Creatinine 0.8 mg/dL (0.7-1.3) 04/11/17 10:00 Creat Clearance w eGFR > 60 (>60) 04/11/17 10:00 POC Glucometer 150 UNITS (()) 04/11/17 16:09 Random Glucose 201 mg/dL (74-106) H 04/11/17 10:00 Hemoglobin A1c % 8.3 % (4.8-6.0) H D 04/09/17 09:00 Lactic Acid 1.8 mmol/L (0.4-2.0) 04/08/17 13:57 Calcium 9.9 mg/dL (8.5-10.1) 04/11/17 10:00 Total Bilirubin 0.6 mg/dL (0.2-1.0) 04/11/17 10:00 AST 7 U/L (15-37) L 04/11/17 10:00 ALT 16 U/L (12-78) 04/11/17 10:00 Alkaline Phosphatase 131 U/L (45-117) H 04/11/17 10:00 Creatine Kinase 68 IU/L (39-308) 04/08/17 13:57 Troponin I < 0.02 ng/ml (0.00-0.05) 04/08/17 13:57 Total Protein 7.7 g/dl (6.4-8.2) 04/11/17 10:00 Albumin 4.1 g/dl (3.4-5.0) D 04/11/17 10:00 Microbiology 04/08/17 13:57 Blood Culture - Preliminary Blood - Peripheral Venous NO GROWTH OBTAINED AFTER 72 HOURS, INCUBATION TO CONTINUE FOR 2 DAYS. 04/08/17 23:00 Gram Stain - Final Foot - Left Dorsum Wound Culture - Preliminary Mr S Aureus Group D Strep Or Entero Coccus A/ Ganrene 2 3rd toes left foot P/ Patietn ot OR for surgical management
--- NOTE | 2017-04-11 18:21 | OP ---
Operative Note - Note: Operative Date: 04/11/17 Pre-Operative Diagnosis: Gangrene 3rd toe Left foot Operation: Amputation 3rd toe left foot Findings: gangrene 3rd toe left foot Implants: None Post-Operative Diagnosis: Same as Pre-op Surgeon: Gal Chew Anesthesiologist/[facility] DIRECTOR: Spenser Farris Anesthesia: MAC Specimens Removed: bone soft tissue 3rd toe Estimated Blood Loss (mls): 10 Drains & Tubes with Location: none Operative Report Dictated: Yes
[2017-04-11] MEDS ORDERED: DEXTROSE 5%-WATER - 1,000 ML IV SCH ×2 (20:15→21:56)
[2017-04-11] MEDS ORDERED: KETAMINE HCL 200 MG/20 ML VIAL ONE (20:57)
[2017-04-11] MEDS ORDERED: MIDAZOLAM HCL 2 MG/2 ML SINGLE DOSE VIAL ONE (20:57)
[2017-04-11] MEDS ORDERED: BUPIVACAINE HCL/PF 0.5% (5MG/ML) 10 ML VIAL IJ ONE (21:09)
[2017-04-11] MEDS ORDERED: LIDOCAINE HCL 1%, 10 MG/ML (20ML VIAL) IJ ONE (21:09)
[2017-04-11] MEDS ORDERED: oxyCODONE HCL 5 MG TABLET PO PRN ×2 (21:19→21:56)
[2017-04-11] MEDS ORDERED: PROMETHAZINE HCL 25 MG/1 ML VIAL IVPUSH PRN ×2 (21:19→21:56)
[2017-04-11] MEDS ORDERED: ONDANSETRON 4 MG/2 ML VIAL IVPUSH PRN ×2 (21:19→21:56)
[2017-04-11] MEDS ORDERED: LACTATED RINGERS SOLUTION 1,000 ML IV SCH ×2 (21:30→21:56)
--- NOTE | 2017-04-11 23:25 | PN ---
Progress Note, Physician History of Present Illness: Pt tolerated amputation - Current Medication List Current Medications: Active Medications Amlodipine Besylate (Norvasc -) 5 mg PO DAILY [facility] Aspirin (Ecotrin -) 81 mg PO DAILY [facility] Collagenase (Santyl -) 1 applic TP DAILY [facility] Heparin Sodium (Porcine) (Heparin -) 5,000 unit SQ BID [facility] Hydrochlorothiazide (Hctz -) 25 mg PO BID [facility] Dextrose (D5w -) 1,000 mls @ 60 mls/hr IV ASDIR [facility] Lactated Ringer's (Lactated Ringers Solution) 1,000 mls @ 125 mls/hr IV ASDIR [facility] Insulin Aspart (Novolog Vial Sliding Scale -) 1 vial SQ ACHS [facility] PRN Reason: Protocol Insulin Detemir (Levemir Vial) 30 units SQ AM [facility] Metformin HCl (Glucophage -) 500 mg PO BIDI [facility] Metoprolol Succinate (Toprol Xl -) 25 mg PO DAILY [facility] Ondansetron HCl (Zofran Injection) 4 mg IVPUSH Q6H PRN PRN Reason: NAUSEA AND/OR VOMITING Stop: 04/12/17 03:20 Oxycodone HCl (Roxicodone -) 5 mg PO Q4H PRN PRN Reason: MILD PAIN Stop: 04/12/17 21:18 Pantoprazole Sodium (Protonix -) 40 mg PO DAILY [facility] Promethazine HCl (Phenergan Injection -) 12.5 mg IVPUSH Q6H PRN PRN Reason: NAUSEA-FOR RESCUE AFTER 15 MIN Stop: 04/12/17 03:20 - Objective Vital Signs: Vital Signs Temperature 97.9 F 04/11/17 23:10 Pulse Rate 62 04/11/17 23:10 Respiratory Rate 14 04/11/17 23:10 Blood Pressure 155/79 04/11/17 23:10 O2 Sat by Pulse Oximetry (%) 100 04/11/17 23:10 Constitutional: Yes: Well Nourished Neck: Yes: WNL, Supple Cardiovascular: Yes: WNL, Regular Rate and Rhythm Respiratory: Yes: WNL, Regular, CTA Bilaterally Gastrointestinal: Yes: WNL, Normal Bowel Sounds, Soft Labs: CBC, BMP 04/11/17 10:00 04/11/17 10:00 INR, PTT INR 1.07 (0.82-1.09) 04/08/17 13:57 Problem List - Problems (1) Diabetic infection of left foot Assessment/Plan: H/O osteo/gangrene S/P amputation 3rd lt toe Wound culture grew MRSA/grp strept Follow BC Cont IV ivnaz Code(s): E11.69 - TYPE 2 DIABETES MELLITUS WITH OTHER SPECIFIED COMPLICATION L08.9 - LOCAL INFECTION OF THE SKIN AND SUBCUTANEOUS TISSUE, UNSP (2) Diabetes Assessment/Plan: Cont sliding scale w/ coverge/levemir/metformin Code(s): E11.9 - TYPE 2 DIABETES MELLITUS WITHOUT COMPLICATIONS Qualifiers: Diabetes mellitus type: other specified (including LASHAY) Diabetes mellitus complication status: with hyperglycemia 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
[2017-04-12] MEDS: HEPARIN NA (PORCINE) 5,000 UNITS/ML 1ML VIAL SQ SCH ×3 (00:02→22:26)
[2017-04-12] MEDS ORDERED: INSULIN (NOVOLOG) ASPART 100 UNITS/ML 10ML VIAL ONE ×3 (06:34→12:14)
[2017-04-12] MEDS: metFORMIN HCL 500 MG TABLET (FP) PO SCH ×2 (07:07→17:40)
[2017-04-12] MEDS: INSULIN DETEMIR 100 UNITS/ML MDV SQ SCH (07:07)
[2017-04-12] MEDS: INSULIN SLIDING SCALE (NOVOLOG) 1 VIAL SQ SCH ×4 (07:10→22:26)
--- NOTE | 2017-04-12 07:12 | OP ---
DATE OF OPERATION: 04/11/2017 PREOPERATIVE DIAGNOSIS: Gangrene 3rd digit. POSTOPERATIVE DIAGNOSIS: Gangrene 3rd digit. PROCEDURE PERFORMED: Amputation 3rd digit, left foot. SURGEON: Scarlet Ragland DPM ANESTHESIA: Local, with IV sedation. FINDINGS: Full-thickness dry gangrene of the 3rd digit, left foot. WOUND CLASSIFICATION: Clean. ESTIMATED BLOOD LOSS: Less than 10 mL. SPECIMENS REMOVED: Bone and soft tissue consisting of the 3rd toe, left foot. DRAINS: None. MATERIALS: None. INDICATIONS: The patient is a pleasant 56-year-old male who was admitted to [facility] because of an infection of his left foot with gangrene of the 3rd digit. The need for surgery was explained to the patient. All risks, benefits and alternatives were discussed. No guarantees were given or implied as to the outcome. The need for possible future surgery was explained. Once the patient's questions were answered to his satisfaction, consent was obtained. The surgical site and the toe to be removed were confirmed with the patient and then marked with my initials. In the preoperative holding area, once again, the extremity to be operated on and the nature of the procedure were discussed and confirmed with the patient. DESCRIPTION OF PROCEDURE: The patient was taken to the operating room and placed on the operating room table in the supine position in good anatomic alignment, with all bony prominences padded well. Prior to beginning the procedure, a time-out was called, confirming the nature of the procedure, the identity of the patient and the proper extremity to be operated on. After sedation was administered by the anesthetic, approximately 8 mL of a 50/50 mixture of mixture of 1% lidocaine plain and 0.5% Marcaine plain was infiltrated around the 3rd digit. Utilizing a racquet-shaped incision, the 3rd digit was excised in total. Once the 3rd digit was disarticulated at the level of the metatarsophalangeal joint, it was removed and passed off to the back table, where it was sent to Pathology for both gross and microscopic examination. The wound was then flushed with copious amounts of sterile saline. The normal healthy tissue that remained was sutured down in a flap fashion, with 3-0 Prolene suture material in a simple interrupted fashion. The surgical site was then dressed with Betadine-soaked Adaptic, Betadine-soaked gauze, dry sterile gauze and a Kali wrap. The patient tolerated all aspects of the procedure and anesthesia well, and was transported to the postanesthesia care unit with vital signs stable, and the remaining digits showing instantaneous capillary refill. Prior to leaving the operating room, the sponge, needle and instrument counts were noted to be correct, and hemostasis was noted to be under control. The patient will be transported back to his room and then be discharged as per Medicine. SCARLET RAGLAND DPM [id number]
[2017-04-12] MEDS ORDERED: INSULIN DETEMIR 100 UNITS/ML MDV SQ ONE (07:57)
[2017-04-12] MEDS ORDERED: PT OWN MED DRAWER 7, Y5N ONE (07:58)
[2017-04-12] MEDS ORDERED: VANCOMYCIN 1 GRAM (PRE-DOCKED) 1,000 MG/250 ML BAG IVPB SCH (10:00)
[2017-04-12] MEDS: METOPROLOL SUCCINATE 25 MG TAB.SR.24H (FP) PO SCH (10:31)
[2017-04-12] MEDS: PANTOPRAZOLE 40 MG TABLET (FP) PO SCH (10:31)
[2017-04-12] MEDS: ASPIRIN COATED 81 MG TABLET.EC PO SCH (10:31)
[2017-04-12] MEDS: HYDROCHLOROTHIAZIDE 25 MG TABLET (FP) PO SCH ×2 (10:31→22:25)
[2017-04-12] MEDS: amLODIPine BESYLATE 5 MG TABLET (FP) PO SCH (10:31)
[2017-04-12] MEDS: COLLAGENASE CLOSTRIDIUM HIST. 30 GRAMS TUBE TP SCH (10:32)
--- NOTE | 2017-04-12 15:25 | PN ---
Progress Note, Physician History of Present Illness: doing well patient stable - Current Medication List Current Medications: Active Medications Amlodipine Besylate (Norvasc -) 5 mg PO DAILY [facility] Last Admin: 04/12/17 10:31 Dose: 5 mg Aspirin (Ecotrin -) 81 mg PO DAILY [facility] Last Admin: 04/12/17 10:31 Dose: 81 mg Collagenase (Santyl -) 1 applic TP DAILY [facility] Last Admin: 04/12/17 10:32 Dose: Not Given Heparin Sodium (Porcine) (Heparin -) 5,000 unit SQ BID [facility] Last Admin: 04/12/17 10:31 Dose: 5,000 unit Hydrochlorothiazide (Hctz -) 25 mg PO BID [facility] Last Admin: 04/12/17 10:31 Dose: 25 mg Dextrose (D5w -) 1,000 mls @ 60 mls/hr IV ASDIR [facility] Last Admin: 04/12/17 02:05 Dose: Not Given Lactated Ringer's (Lactated Ringers Solution) 1,000 mls @ 125 mls/hr IV ASDIR [facility] Last Admin: 04/12/17 02:05 Dose: Not Given Vancomycin HCl 1,000 mg/ (Sodium Chloride) 250 mls @ 166.667 mls/hr IVPB DAILY [facility] Insulin Aspart (Novolog Vial Sliding Scale -) 1 vial SQ ACHS [facility] PRN Reason: Protocol Last Admin: 04/12/17 12:14 Dose: 4 units Insulin Detemir (Levemir Vial) 30 units SQ AM [facility] Last Admin: 04/12/17 07:07 Dose: 30 units Metformin HCl (Glucophage -) 500 mg PO BIDI [facility] Last Admin: 04/12/17 07:07 Dose: 500 mg Metoprolol Succinate (Toprol Xl -) 25 mg PO DAILY [facility] Last Admin: 04/12/17 10:31 Dose: 25 mg Oxycodone HCl (Roxicodone -) 5 mg PO Q4H PRN PRN Reason: MILD PAIN Stop: 04/12/17 21:18 Pantoprazole Sodium (Protonix -) 40 mg PO DAILY [facility] Last Admin: 04/12/17 10:31 Dose: 40 mg - Objective Vital Signs: Vital Signs Temperature 98.6 F 04/12/17 06:00 Pulse Rate 94 H 04/12/17 10:55 Respiratory Rate 18 04/12/17 06:00 Blood Pressure 131/81 04/12/17 06:00 O2 Sat by Pulse Oximetry (%) 98 04/12/17 10:55 Constitutional: Yes: No Distress, Calm Cardiovascular: Yes: Regular Rate and Rhythm Respiratory: Yes: Regular, CTA Bilaterally Gastrointestinal: Yes: Normal Bowel Sounds, Soft Musculoskeletal: Yes: WNL Extremities: Yes: Other Wound/Incision: Yes: Dressing Dry and Intact Neurological: Yes: Alert, Oriented Psychiatric: Yes: Alert, Oriented Labs: CBC, BMP 04/11/17 10:00 04/11/17 10:00 INR, PTT INR 1.07 (0.82-1.09) 04/08/17 13:57 Assessment/Plan Problem List - Problems (1) Cellulitis Code(s): L03.90 - CELLULITIS, UNSPECIFIED Qualifiers: Site of cellulitis: extremity Site of cellulitis of extremity: lower extremity Laterality: left Qualified Code(s): L03.116 - Cellulitis of left lower limb (2) Osteomyelitis Code(s): M86.9 - OSTEOMYELITIS, UNSPECIFIED Qualifiers: Osteomyelitis location: foot Laterality: left 3 gangrene of the toes plan will await for further reports will continue abx will order crp and esr
[2017-04-12] MEDS: SODIUM CHLORIDE 0.45% 1,000 ML IV SCH (17:42)
--- NOTE | 2017-04-12 17:42 | PN ---
Progress Note (short form) - Note Progress Note: Anesthesia postop note 56 y/o M s/p MAC anesthesia for toe amputation POD#1, vss, aaox3, pain well controlled, no complaints. No anesthesia complications.
--- NOTE | 2017-04-12 21:26 | PN ---
Progress Note, Physician - Current Medication List Current Medications: Active Medications Amlodipine Besylate (Norvasc -) 5 mg PO DAILY [facility] Last Admin: 04/12/17 10:31 Dose: 5 mg Aspirin (Ecotrin -) 81 mg PO DAILY [facility] Last Admin: 04/12/17 10:31 Dose: 81 mg Collagenase (Santyl -) 1 applic TP DAILY [facility] Last Admin: 04/12/17 10:32 Dose: Not Given Heparin Sodium (Porcine) (Heparin -) 5,000 unit SQ BID [facility] Last Admin: 04/12/17 10:31 Dose: 5,000 unit Hydrochlorothiazide (Hctz -) 25 mg PO BID [facility] Last Admin: 04/12/17 10:31 Dose: 25 mg Vancomycin HCl 1,000 mg/ (Sodium Chloride) 250 mls @ 166.667 mls/hr IVPB DAILY [facility] Sodium Chloride (1/2 Normal Saline) 1,000 mls @ 40 mls/hr IV ASDIR [facility] Last Admin: 04/12/17 17:42 Dose: 40 mls/hr Insulin Aspart (Novolog Vial Sliding Scale -) 1 vial SQ ACHS [facility] PRN Reason: Protocol Last Admin: 04/12/17 17:39 Dose: 2 units Insulin Detemir (Levemir Vial) 30 units SQ AM [facility] Last Admin: 04/12/17 07:07 Dose: 30 units Metformin HCl (Glucophage -) 500 mg PO BIDI [facility] Last Admin: 04/12/17 17:40 Dose: 500 mg Metoprolol Succinate (Toprol Xl -) 25 mg PO DAILY [facility] Last Admin: 04/12/17 10:31 Dose: 25 mg Oxycodone HCl (Roxicodone -) 5 mg PO Q4H PRN PRN Reason: MILD PAIN Pantoprazole Sodium (Protonix -) 40 mg PO DAILY [facility] Last Admin: 04/12/17 10:31 Dose: 40 mg - Objective Vital Signs: Vital Signs Temperature 97.7 F 04/12/17 18:00 Pulse Rate 80 04/12/17 18:00 Respiratory Rate 18 04/12/17 18:00 Blood Pressure 162/89 04/12/17 18:00 O2 Sat by Pulse Oximetry (%) 98 04/12/17 10:55 Constitutional: Yes: Well Nourished HENT: Yes: WNL Neck: Yes: WNL, Supple Cardiovascular: Yes: WNL, Regular Rate and Rhythm Respiratory: Yes: WNL, Regular, CTA Bilaterally Gastrointestinal: Yes: WNL, Normal Bowel Sounds, Soft Extremities: Yes: Other ((+) lt foot indressing) Labs: CBC, BMP 04/11/17 10:00 04/11/17 10:00 INR, PTT INR 1.07 (0.82-1.09) 04/08/17 13:57 Problem List - Problems (1) Diabetic infection of left foot Code(s): E11.69 - TYPE 2 DIABETES MELLITUS WITH OTHER SPECIFIED COMPLICATION L08.9 - LOCAL INFECTION OF THE SKIN AND SUBCUTANEOUS TISSUE, UNSP (2) Diabetes Code(s): E11.9 - TYPE 2 DIABETES MELLITUS WITHOUT COMPLICATIONS Qualifiers: Diabetes mellitus type: other specified (including LASHAY) Diabetes mellitus complication status: with hyperglycemia Diabetes mellitus mcc insulin use: unspecified mcc insulin use status Qualified Code (s): E13.65 - Other specified diabetes mellitus with hyperglycemia; Z79.4 - exterminator termite (current) use of insulin (3) HTN (hypertension) Code(s): I10 - ESSENTIAL (PRIMARY) HYPERTENSION (4) Chronic CHF Code(s): I50.9 - HEART FAILURE, UNSPECIFIED
[2017-04-12] MEDS: oxyCODONE HCL 5 MG TABLET PO PRN (22:36)
[2017-04-13] MEDS: metFORMIN HCL 500 MG TABLET (FP) PO SCH ×2 (06:22→17:34)
[2017-04-13] MEDS: INSULIN DETEMIR 100 UNITS/ML MDV SQ SCH (06:22)
[2017-04-13] MEDS: INSULIN SLIDING SCALE (NOVOLOG) 1 VIAL SQ SCH ×4 (06:24→21:15)
[2017-04-13] MEDS ORDERED: INSULIN DETEMIR 100 UNITS/ML MDV SQ ONE (07:18)
[2017-04-13] MEDS ORDERED: INSULIN (NOVOLOG) ASPART 100 UNITS/ML 10ML VIAL ONE ×2 (07:18→21:17)
[2017-04-13] MEDS ORDERED: PT OWN MED DRAWER 7, Y5N ONE ×3 (07:19→21:00)
[2017-04-13] MEDS: oxyCODONE HCL 5 MG TABLET PO PRN ×2 (07:47→21:24)
[2017-04-13] MEDS ORDERED: VANCOMYCIN 1,000 MG in SODIUM CHLORIDE 250 ML IVPB SCH (10:00)
[2017-04-13] MEDS: HYDROCHLOROTHIAZIDE 25 MG TABLET (FP) PO SCH ×2 (10:40→21:11)
[2017-04-13] MEDS: HEPARIN NA (PORCINE) 5,000 UNITS/ML 1ML VIAL SQ SCH ×2 (10:40→21:12)
[2017-04-13] MEDS: PANTOPRAZOLE 40 MG TABLET (FP) PO SCH (10:40)
[2017-04-13] MEDS: ASPIRIN COATED 81 MG TABLET.EC PO SCH (10:41)
[2017-04-13] MEDS: COLLAGENASE CLOSTRIDIUM HIST. 30 GRAMS TUBE TP SCH (10:41)
[2017-04-13] MEDS: amLODIPine BESYLATE 5 MG TABLET (FP) PO SCH (10:41)
[2017-04-13] MEDS: METOPROLOL SUCCINATE 25 MG TAB.SR.24H (FP) PO SCH (10:41)
--- NOTE | 2017-04-13 11:27 | PN ---
Progress Note, Physician History of Present Illness: Pt seen and examined, events noted. s/p amputation of Lt 3rd toe. Pt denies having any specific complaints. Pain controlled, denies fever/chills - Current Medication List Current Medications: Active Medications Amlodipine Besylate (Norvasc -) 5 mg PO DAILY [facility] Last Admin: 04/13/17 10:41 Dose: 5 mg Aspirin (Ecotrin -) 81 mg PO DAILY [facility] Last Admin: 04/13/17 10:41 Dose: 81 mg Collagenase (Santyl -) 1 applic TP DAILY [facility] Last Admin: 04/13/17 10:41 Dose: Not Given Heparin Sodium (Porcine) (Heparin -) 5,000 unit SQ BID [facility] Last Admin: 04/13/17 10:40 Dose: 5,000 unit Hydrochlorothiazide (Hctz -) 25 mg PO BID [facility] Last Admin: 04/13/17 10:40 Dose: 25 mg Vancomycin HCl 1,000 mg/ (Sodium Chloride) 250 mls @ 166.667 mls/hr IVPB DAILY [facility] Last Admin: 04/13/17 10:40 Dose: 166.667 mls/hr Sodium Chloride (1/2 Normal Saline) 1,000 mls @ 40 mls/hr IV ASDIR [facility] Last Admin: 04/12/17 17:42 Dose: 40 mls/hr Insulin Aspart (Novolog Vial Sliding Scale -) 1 vial SQ ACHS [facility] PRN Reason: Protocol Last Admin: 04/13/17 06:24 Dose: 2 units Insulin Detemir (Levemir Vial) 30 units SQ AM [facility] Last Admin: 04/13/17 06:22 Dose: 30 units Metformin HCl (Glucophage -) 500 mg PO BIDI [facility] Last Admin: 04/13/17 06:22 Dose: 500 mg Metoprolol Succinate (Toprol Xl -) 25 mg PO DAILY [facility] Last Admin: 04/13/17 10:41 Dose: 25 mg Oxycodone HCl (Roxicodone -) 5 mg PO Q4H PRN PRN Reason: MILD PAIN Last Admin: 04/13/17 07:47 Dose: 5 mg Pantoprazole Sodium (Protonix -) 40 mg PO DAILY [facility] Last Admin: 04/13/17 10:40 Dose: 40 mg - Objective Vital Signs: Vital Signs Temperature 98.3 F 04/13/17 10:36 Pulse Rate 84 04/13/17 10:36 Respiratory Rate 18 04/13/17 10:36 Blood Pressure 132/64 04/13/17 10:36 O2 Sat by Pulse Oximetry (%) 99 04/12/17 21:00 Constitutional: Yes: No Distress, Calm Eyes: Yes: WNL HENT: Yes: WNL Neck: Yes: Supple Cardiovascular: Yes: Regular Rate and Rhythm Respiratory: Yes: CTA Bilaterally Gastrointestinal: Yes: Normal Bowel Sounds, Soft Genitourinary: Yes: WNL Integumentary: Yes: Other (mild LLE warmth) Wound/Incision: Yes: Clean/Dry Neurological: Yes: WNL, Alert Psychiatric: Yes: WNL Labs: CBC, BMP 04/11/17 10:00 04/11/17 10:00 INR, PTT INR 1.07 (0.82-1.09) 04/08/17 13:57 Problem List - Problems (1) Cellulitis Code(s): L03.90 - CELLULITIS, UNSPECIFIED Qualifiers: Site of cellulitis: extremity Site of cellulitis of extremity: lower extremity Laterality: left Qualified Code(s): L03.116 - Cellulitis of left lower limb (2) Diabetic infection of left foot Code(s): E11.69 - TYPE 2 DIABETES MELLITUS WITH OTHER SPECIFIED COMPLICATION L08.9 - LOCAL INFECTION OF THE SKIN AND SUBCUTANEOUS TISSUE, UNSP (3) Peripheral neuropathy Code(s): G62.9 - POLYNEUROPATHY, UNSPECIFIED (4) Diabetes Code(s): E11.9 - TYPE 2 DIABETES MELLITUS WITHOUT COMPLICATIONS Qualifiers: Diabetes mellitus type: other specified (including LASHAY) Diabetes mellitus complication status: with hyperglycemia Diabetes mellitus shelter insulin use: unspecified terminal carman insulin use status Qualified Code (s): E13.65 - Other specified diabetes mellitus with hyperglycemia; Z79.4 - terminal carman (current) use of insulin (5) Gangrene of toe of left foot Code(s): I96 - GANGRENE, NOT ELSEWHERE CLASSIFIED (6) Osteomyelitis Code(s): M86.9 - OSTEOMYELITIS, UNSPECIFIED Qualifiers: Osteomyelitis type: other acute Osteomyelitis location: foot Laterality: left Qualified Code(s): M86.172 - Other acute osteomyelitis, left ankle and foot (7) Type 2 diabetes mellitus with foot ulcer Code(s): E11.621 - TYPE 2 DIABETES MELLITUS WITH FOOT ULCER L97.509 - NON-PRESSURE CHRONIC ULCER OTH PRT UNSP FOOT W UNSP SEVERITY Qualifiers: Diabetes mellitus terminal carman insulin use: with terminal carman use Assessment/Plan s/p LLE toe amputation MRSA/ E.faecalis infection/ toe gangrene Pt doing well continue Vancomycin continue wound care f/u on ESR/CRP/BMP ordered
--- NOTE | 2017-04-13 15:50 | PN ---
Progress Note, Physician - Current Medication List Current Medications: Active Medications Amlodipine Besylate (Norvasc -) 5 mg PO DAILY [facility] Last Admin: 04/13/17 10:41 Dose: 5 mg Aspirin (Ecotrin -) 81 mg PO DAILY [facility] Last Admin: 04/13/17 10:41 Dose: 81 mg Collagenase (Santyl -) 1 applic TP DAILY [facility] Last Admin: 04/13/17 10:41 Dose: Not Given Heparin Sodium (Porcine) (Heparin -) 5,000 unit SQ BID [facility] Last Admin: 04/13/17 10:40 Dose: 5,000 unit Hydrochlorothiazide (Hctz -) 25 mg PO BID [facility] Last Admin: 04/13/17 10:40 Dose: 25 mg Sodium Chloride (1/2 Normal Saline) 1,000 mls @ 40 mls/hr IV ASDIR [facility] Last Admin: 04/12/17 17:42 Dose: 40 mls/hr Vancomycin HCl 1,000 mg/ (Sodium Chloride) 250 mls @ 166.667 mls/hr IVPB BID [facility] PRN Reason: Protocol Insulin Aspart (Novolog Vial Sliding Scale -) 1 vial SQ ACHS [facility] PRN Reason: Protocol Last Admin: 04/13/17 12:13 Dose: 2 units Insulin Detemir (Levemir Vial) 30 units SQ AM [facility] Last Admin: 04/13/17 06:22 Dose: 30 units Metformin HCl (Glucophage -) 500 mg PO BIDI [facility] Last Admin: 04/13/17 06:22 Dose: 500 mg Metoprolol Succinate (Toprol Xl -) 25 mg PO DAILY [facility] Last Admin: 04/13/17 10:41 Dose: 25 mg Oxycodone HCl (Roxicodone -) 5 mg PO Q4H PRN PRN Reason: MILD PAIN Last Admin: 04/13/17 07:47 Dose: 5 mg Pantoprazole Sodium (Protonix -) 40 mg PO DAILY [facility] Last Admin: 04/13/17 10:40 Dose: 40 mg - Objective Vital Signs: Vital Signs Temperature 98.2 F 04/13/17 15:09 Pulse Rate 77 04/13/17 15:09 Respiratory Rate 18 04/13/17 15:09 Blood Pressure 143/77 04/13/17 15:09 O2 Sat by Pulse Oximetry (%) 100 04/13/17 09:00 Constitutional: Yes: Well Nourished HENT: Yes: WNL Neck: Yes: WNL, Supple Cardiovascular: Yes: WNL, Regular Rate and Rhythm Respiratory: Yes: WNL, Regular, CTA Bilaterally Gastrointestinal: Yes: WNL, Normal Bowel Sounds, Soft Extremities: Yes: Other ((+) lt foot in dressing) Labs: CBC, BMP 04/11/17 10:00 04/11/17 10:00 INR, PTT INR 1.07 (0.82-1.09) 04/08/17 13:57 Problem List - Problems (1) Diabetic infection of left foot Code(s): E11.69 - TYPE 2 DIABETES MELLITUS WITH OTHER SPECIFIED COMPLICATION L08.9 - LOCAL INFECTION OF THE SKIN AND SUBCUTANEOUS TISSUE, UNSP (2) Diabetes Code(s): E11.9 - TYPE 2 DIABETES MELLITUS WITHOUT COMPLICATIONS Qualifiers: Diabetes mellitus type: other specified (including LASHAY) Diabetes mellitus complication status: with hyperglycemia Diabetes mellitus terminal operator insulin use: unspecified halfway insulin use status Qualified Code (s): E13.65 - Other specified diabetes mellitus with hyperglycemia; Z79.4 - terminal makeup operator (current) use of insulin (3) HTN (hypertension) Code(s): I10 - ESSENTIAL (PRIMARY) HYPERTENSION (4) Chronic CHF Code(s): I50.9 - HEART FAILURE, UNSPECIFIED
[2017-04-13] MEDS: SODIUM CHLORIDE 0.45% 1,000 ML IV SCH (18:37)
[2017-04-13] MEDS: VANCOMYCIN 1,000 MG in SODIUM CHLORIDE 250 ML IVPB SCH (22:26)
[2017-04-14] MEDS: INSULIN DETEMIR 100 UNITS/ML MDV SQ SCH (06:35)
[2017-04-14] MEDS: INSULIN SLIDING SCALE (NOVOLOG) 1 VIAL SQ SCH ×4 (06:36→22:37)
[2017-04-14] MEDS: metFORMIN HCL 500 MG TABLET (FP) PO SCH ×2 (06:36→17:12)
[2017-04-14] MEDS ORDERED: INSULIN (NOVOLOG) ASPART 100 UNITS/ML 10ML VIAL ONE ×2 (07:00→11:55)
[2017-04-14] MEDS ORDERED: INSULIN DETEMIR 100 UNITS/ML MDV SQ ONE (07:00)
[2017-04-14 08:22] LABS: ANION GAP 6 (8-16); CALCIUM 8.7 mg/dL (8.5-10.1); CO2 34 mmol/L (21-32); CREATININE 0.8 mg/dL (0.7-1.3); GLUCOSE,RANDOM 223 mg/dL (74-106)
[2017-04-14] MEDS ORDERED: PT OWN MED DRAWER 7, Y5N ONE ×3 (09:44→22:28)
[2017-04-14] MEDS: amLODIPine BESYLATE 5 MG TABLET (FP) PO SCH (09:50)
[2017-04-14] MEDS: PANTOPRAZOLE 40 MG TABLET (FP) PO SCH (09:50)
[2017-04-14] MEDS: HEPARIN NA (PORCINE) 5,000 UNITS/ML 1ML VIAL SQ SCH ×2 (09:50→22:37)
[2017-04-14] MEDS: METOPROLOL SUCCINATE 25 MG TAB.SR.24H (FP) PO SCH (09:50)
[2017-04-14] MEDS: HYDROCHLOROTHIAZIDE 25 MG TABLET (FP) PO SCH ×2 (09:50→22:37)
[2017-04-14] MEDS: ASPIRIN COATED 81 MG TABLET.EC PO SCH (09:50)
[2017-04-14] MEDS: VANCOMYCIN 1,000 MG in SODIUM CHLORIDE 250 ML IVPB SCH ×2 (09:51→22:37)
[2017-04-14] MEDS: COLLAGENASE CLOSTRIDIUM HIST. 30 GRAMS TUBE TP SCH (13:02)
--- NOTE | 2017-04-14 14:21 | PN ---
Progress Note (short form) - Note Progress Note: PODIATY NOTE POD # 2 Patient seen at bedside has no complaints denies N/V/F/C, SOB, chest pain and leg/calf pain Left foot: Dressing clean and intact, upon removal, Sx site clean and dry with sutres intact, no dehissance noted.. No redness no drainage no mal odor and no clinicla signs of infection noted at sx site. Foot ankle leg sweling decreased since admission. Vital Signs Period Temp Pulse Resp BP Sys/Mclaughlin Pulse Ox Last 24 Hr 98.2 F-99.4 F 77-100 18-20 143-159/63-88 100 Microbiology 04/08/17 13:57 Blood Culture - Final Blood - Peripheral Venous NO GROWTH AFTER 5 DAYS INCUBATION Laboratory Last Values WBC 8.9 K/mm3 (4.0-10.0) 04/11/17 10:00 RBC 4.61 M/mm3 (4.00-5.60) 04/11/17 10:00 Hgb 11.7 GM/dL (11.7-16.9) D 04/11/17 10:00 Hct 36.9 % (35.4-49) 04/11/17 10:00 MCV 80.2 fl (80-96) 04/11/17 10:00 MCH 25.4 pg (25.7-33.7) L 04/11/17 10:00 MCHC 31.6 g/dl (32.0-35.9) L 04/11/17 10:00 RDW 14.8 % (11.9-15.9) 04/11/17 10:00 Plt Count 430 K/MM3 (134-434) 04/11/17 10:00 MPV 8.4 fl (7.5-11.1) 04/11/17 10:00 Neutrophils % 67.5 % (42.8-82.8) 04/11/17 10:00 Lymphocytes % 24.4 % (8-40) 04/11/17 10:00 Monocytes % 6.1 % (3.8-10.2) 04/11/17 10:00 Eosinophils % 1.5 % (0-4.5) 04/11/17 10:00 Basophils % 0.5 % (0-2.0) 04/11/17 10:00 INR 1.07 (0.82-1.09) 04/08/17 13:57 PTT (Actin FS) 33.5 SECONDS (26.9-34.4) 04/08/17 13:57 VBG pH 7.39 (7.32-7.42) 04/08/17 13:57 POC VBG pCO2 46.6 mmHg (38-52) 04/08/17 13:57 POC VBG pO2 105.0 mmHg (28-48) H D 04/08/17 13:57 Mixed VBG HCO3 27.3 meq/L (19-25) H 04/08/17 13:57 Sodium 135 mmol/L (136-145) L 04/14/17 07:20 Potassium 3.9 mmol/L (3.5-5.1) 04/14/17 07:20 Chloride 95 mmol/L (98-107) L 04/14/17 07:20 Carbon Dioxide 34 mmol/L (21-32) H 04/14/17 07:20 Anion Gap 6 (8-16) L 04/14/17 07:20 BUN 16 mg/dL (7-18) 04/14/17 07:20 Creatinine 0.8 mg/dL (0.7-1.3) 04/14/17 07:20 Creat Clearance w eGFR > 60 (>60) 04/11/17 10:00 POC Glucometer 239 UNITS (()) 04/14/17 11:17 Random Glucose 223 mg/dL (74-106) H 04/14/17 07:20 Hemoglobin A1c % 8.3 % (4.8-6.0) H D 04/09/17 09:00 Lactic Acid 1.8 mmol/L (0.4-2.0) 04/08/17 13:57 Calcium 8.7 mg/dL (8.5-10.1) 04/14/17 07:20 Total Bilirubin 0.6 mg/dL (0.2-1.0) 04/11/17 10:00 AST 7 U/L (15-37) L 04/11/17 10:00 ALT 16 U/L (12-78) 04/11/17 10:00 Alkaline Phosphatase 131 U/L (45-117) H 04/11/17 10:00 Creatine Kinase 68 IU/L (39-308) 04/08/17 13:57 Troponin I < 0.02 ng/ml (0.00-0.05) 04/08/17 13:57 Total Protein 7.7 g/dl (6.4-8.2) 04/11/17 10:00 Albumin 4.1 g/dl (3.4-5.0) D 04/11/17 10:00 Urine Color Ltyellow 04/08/17 16:00 Urine Appearance Clear 04/08/17 16:00 Urine pH 7.0 (5.0-8.0) D 04/08/17 16:00 Ur Specific [place] 1.020 (1.005-1.025) 04/08/17 16:00 Urine Protein Negative (NEGATIVE) 04/08/17 16:00 Urine Glucose (UA) 3+ (NEGATIVE) H 04/08/17 16:00 Urine Ketones Negative (NEGATIVE) 04/08/17 16:00 Urine Blood Negative (NEGATIVE) 04/08/17 16:00 Urine Nitrite Negative (NEGATIVE) 04/08/17 16:00 Urine Bilirubin Negative (NEGATIVE) 04/08/17 16:00 Urine Urobilinogen Negative mg/dL (0.2-1.0) 04/08/17 16:00 Ur Leukocyte Esterase Negative (NEGATIVE) 04/08/17 16:00 Blood Type O POSITIVE 04/08/17 13:57 Antibody Screen Negative 04/08/17 13:57 Post o day # 2 S/P amp 3rd digit, left foot Patient refused amputation of 2nd toe. Doing well with no post op complications thus far plan: 1) Collagenase dressing to wounds NOT SUTURE/SX SITE 2) Betadine dressing to Sx site with DSD 3) All notes read and appreciated 4) Abx as per infectious disease 5) Patietn sx stable for D/C 6) Have pateitn follow up in wound center with Dr Arguello upon D/C
--- NOTE | 2017-04-14 16:33 | PN ---
Progress Note, Physician History of Present Illness: Pt states he feels well. Took pain medication last night, pain controlled. Remains afebrile. Has no specific complaints. - Current Medication List Current Medications: Active Medications Amlodipine Besylate (Norvasc -) 5 mg PO DAILY [facility] Last Admin: 04/14/17 09:50 Dose: 5 mg Aspirin (Ecotrin -) 81 mg PO DAILY [facility] Last Admin: 04/14/17 09:50 Dose: 81 mg Collagenase (Santyl -) 1 applic TP DAILY [facility] Heparin Sodium (Porcine) (Heparin -) 5,000 unit SQ BID [facility] Last Admin: 04/14/17 09:50 Dose: 5,000 unit Hydrochlorothiazide (Hctz -) 25 mg PO BID [facility] Last Admin: 04/14/17 09:50 Dose: 25 mg Sodium Chloride (1/2 Normal Saline) 1,000 mls @ 40 mls/hr IV ASDIR [facility] Last Admin: 04/13/17 18:37 Dose: 40 mls/hr Vancomycin HCl 1,000 mg/ (Sodium Chloride) 250 mls @ 166.667 mls/hr IVPB BID [facility] PRN Reason: Protocol Last Admin: 04/14/17 09:51 Dose: 166.667 mls/hr Insulin Aspart (Novolog Vial Sliding Scale -) 1 vial SQ ACHS [facility] PRN Reason: Protocol Last Admin: 04/14/17 12:13 Dose: 4 units Insulin Detemir (Levemir Vial) 30 units SQ AM [facility] Last Admin: 04/14/17 06:35 Dose: 30 units Metformin HCl (Glucophage -) 500 mg PO BIDI [facility] Last Admin: 04/14/17 06:36 Dose: 500 mg Metoprolol Succinate (Toprol Xl -) 25 mg PO DAILY [facility] Last Admin: 04/14/17 09:50 Dose: 25 mg Pantoprazole Sodium (Protonix -) 40 mg PO DAILY [facility] Last Admin: 04/14/17 09:50 Dose: 40 mg - Objective Vital Signs: Vital Signs Temperature 98.3 F 04/14/17 15:09 Pulse Rate 84 04/14/17 15:09 Respiratory Rate 20 04/14/17 15:09 Blood Pressure 156/65 04/14/17 15:09 O2 Sat by Pulse Oximetry (%) 100 04/13/17 21:00 Constitutional: Yes: No Distress, Calm HENT: Yes: WNL Cardiovascular: Yes: Regular Rate and Rhythm Respiratory: Yes: CTA Bilaterally Gastrointestinal: Yes: Normal Bowel Sounds, Soft Genitourinary: Yes: WNL Extremities: Yes: Amputation (Lt 3rd toe amputation dressing intact, mild LE edema) Wound/Incision: Yes: Dressing Dry and Intact Neurological: Yes: Alert, Oriented Psychiatric: Yes: Alert, Oriented Labs: CBC, BMP 04/11/17 10:00 04/14/17 07:20 INR, PTT INR 1.07 (0.82-1.09) 04/08/17 13:57 Microbiology 04/08/17 13:57 Blood Culture - Final Blood - Peripheral Venous NO GROWTH AFTER 5 DAYS INCUBATION Microbiology 04/08/17 13:57 Blood - Peripheral Venous Blood Culture - Final NO GROWTH AFTER 5 DAYS INCUBATION 04/08/17 23:00 Foot - Left Dorsum Gram Stain - Final 04/08/17 23:00 Foot - Left Dorsum Wound Culture - Final S Aureus Enterococcus Faecalis 04/08/17 16:00 Urine - Urine Clean Catch Urine Culture - Final NO GROWTH OBTAINED Problem List - Problems (1) Cellulitis Code(s): L03.90 - CELLULITIS, UNSPECIFIED Qualifiers: Site of cellulitis: extremity Site of cellulitis of extremity: lower extremity Laterality: left Qualified Code(s): L03.116 - Cellulitis of left lower limb (2) Diabetic infection of left foot Code(s): E11.69 - TYPE 2 DIABETES MELLITUS WITH OTHER SPECIFIED COMPLICATION L08.9 - LOCAL INFECTION OF THE SKIN AND SUBCUTANEOUS TISSUE, UNSP (3) Peripheral neuropathy Code(s): G62.9 - POLYNEUROPATHY, UNSPECIFIED (4) Diabetes Code(s): E11.9 - TYPE 2 DIABETES MELLITUS WITHOUT COMPLICATIONS Qualifiers: Diabetes mellitus type: other specified (including LASHAY) Diabetes mellitus complication status: with hyperglycemia Diabetes mellitus joint terminal attack controller insulin use: unspecified jail insulin use status Qualified Code (s): E13.65 - Other specified diabetes mellitus with hyperglycemia; Z79.4 - care home (current) use of insulin (5) Gangrene of toe of left foot Code(s): I96 - GANGRENE, NOT ELSEWHERE CLASSIFIED (6) Osteomyelitis Code(s): M86.9 - OSTEOMYELITIS, UNSPECIFIED Qualifiers: Osteomyelitis type: other acute Osteomyelitis location: foot Laterality: left Qualified Code(s): M86.172 - Other acute osteomyelitis, left ankle and foot (7) Type 2 diabetes mellitus with foot ulcer Code(s): E11.621 - TYPE 2 DIABETES MELLITUS WITH FOOT ULCER L97.509 - NON-PRESSURE CHRONIC ULCER OTH PRT UNSP FOOT W UNSP SEVERITY Qualifiers: Diabetes mellitus jail insulin use: with jail use Assessment/Plan MRSA/E.faecalis isolated from cultures continue Vancomycin IV check Vancomycin trough level, esr, crp
[2017-04-14] MEDS: SODIUM CHLORIDE 0.45% 1,000 ML IV SCH (17:13)
--- NOTE | 2017-04-14 22:53 | PN ---
Progress Note, Physician History of Present Illness: No new complaints - Current Medication List Current Medications: Active Medications Amlodipine Besylate (Norvasc -) 5 mg PO DAILY [facility] Last Admin: 04/14/17 09:50 Dose: 5 mg Aspirin (Ecotrin -) 81 mg PO DAILY [facility] Last Admin: 04/14/17 09:50 Dose: 81 mg Collagenase (Santyl -) 1 applic TP DAILY [facility] Heparin Sodium (Porcine) (Heparin -) 5,000 unit SQ BID [facility] Last Admin: 04/14/17 22:37 Dose: 5,000 unit Hydrochlorothiazide (Hctz -) 25 mg PO BID [facility] Last Admin: 04/14/17 22:37 Dose: 25 mg Sodium Chloride (1/2 Normal Saline) 1,000 mls @ 40 mls/hr IV ASDIR [facility] Last Admin: 04/14/17 17:13 Dose: 40 mls/hr Vancomycin HCl 1,000 mg/ (Sodium Chloride) 250 mls @ 166.667 mls/hr IVPB BID [facility] PRN Reason: Protocol Last Admin: 04/14/17 22:37 Dose: 166.667 mls/hr Insulin Aspart (Novolog Vial Sliding Scale -) 1 vial SQ ACHS [facility] PRN Reason: Protocol Last Admin: 04/14/17 22:37 Dose: 2 units Insulin Detemir (Levemir Vial) 30 units SQ AM [facility] Last Admin: 04/14/17 06:35 Dose: 30 units Metformin HCl (Glucophage -) 500 mg PO BIDI [facility] Last Admin: 04/14/17 17:12 Dose: 500 mg Metoprolol Succinate (Toprol Xl -) 25 mg PO DAILY [facility] Last Admin: 04/14/17 09:50 Dose: 25 mg Pantoprazole Sodium (Protonix -) 40 mg PO DAILY [facility] Last Admin: 04/14/17 09:50 Dose: 40 mg - Objective Vital Signs: Vital Signs Temperature 98.3 F 04/14/17 15:09 Pulse Rate 84 04/14/17 15:09 Respiratory Rate 20 04/14/17 15:09 Blood Pressure 156/65 04/14/17 15:09 O2 Sat by Pulse Oximetry (%) 100 04/13/17 21:00 Constitutional: Yes: Well Nourished Neck: Yes: WNL, Supple Cardiovascular: Yes: WNL, Regular Rate and Rhythm Respiratory: Yes: WNL, Regular, CTA Bilaterally Gastrointestinal: Yes: WNL, Normal Bowel Sounds, Soft Extremities: Yes: Other ((+) lt foot toe amputation) Labs: CBC, BMP 04/11/17 10:00 04/14/17 07:20 INR, PTT INR 1.07 (0.82-1.09) 04/08/17 13:57 Problem List - Problems (1) Diabetic infection of left foot Assessment/Plan: H/O osteo/gangrene S/P amputation 3rd lt toe Wound culture grew MRSA/grp strept Cont IV antibxs Code(s): E11.69 - TYPE 2 DIABETES MELLITUS WITH OTHER SPECIFIED COMPLICATION L08.9 - LOCAL INFECTION OF THE SKIN AND SUBCUTANEOUS TISSUE, UNSP (2) Diabetes Assessment/Plan: Cont sliding scale w/ coverge/levemir/metformin Code(s): E11.9 - TYPE 2 DIABETES MELLITUS WITHOUT COMPLICATIONS Qualifiers: Diabetes mellitus type: other specified (including LASHAY) Diabetes mellitus complication status: with hyperglycemia 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
[2017-04-15] MEDS: INSULIN DETEMIR 100 UNITS/ML MDV SQ SCH (06:20)
[2017-04-15] MEDS: INSULIN SLIDING SCALE (NOVOLOG) 1 VIAL SQ SCH ×4 (06:20→21:37)
[2017-04-15] MEDS: metFORMIN HCL 500 MG TABLET (FP) PO SCH ×2 (06:20→17:21)
[2017-04-15] MEDS ORDERED: PT OWN MED DRAWER 7, Y5N ONE ×2 (09:53→21:26)
[2017-04-15] MEDS: HYDROCHLOROTHIAZIDE 25 MG TABLET (FP) PO SCH ×2 (10:10→21:27)
[2017-04-15] MEDS: ASPIRIN COATED 81 MG TABLET.EC PO SCH (10:10)
[2017-04-15] MEDS: METOPROLOL SUCCINATE 25 MG TAB.SR.24H (FP) PO SCH (10:10)
[2017-04-15] MEDS: amLODIPine BESYLATE 5 MG TABLET (FP) PO SCH (10:10)
[2017-04-15] MEDS: PANTOPRAZOLE 40 MG TABLET (FP) PO SCH (10:10)
[2017-04-15] MEDS: VANCOMYCIN 1,000 MG in SODIUM CHLORIDE 250 ML IVPB SCH ×2 (10:10→21:27)
[2017-04-15] MEDS: HEPARIN NA (PORCINE) 5,000 UNITS/ML 1ML VIAL SQ SCH ×2 (10:10→21:27)
[2017-04-15] MEDS: COLLAGENASE CLOSTRIDIUM HIST. 30 GRAMS TUBE TP SCH (11:15)
[2017-04-15] MEDS ORDERED: INSULIN (NOVOLOG) ASPART 100 UNITS/ML 10ML VIAL ONE ×3 (11:55→21:06)
--- NOTE | 2017-04-15 16:11 | PN ---
Progress Note, Physician History of Present Illness: stable dong well no issues - Current Medication List Current Medications: Active Medications Amlodipine Besylate (Norvasc -) 5 mg PO DAILY [facility] Last Admin: 04/15/17 10:10 Dose: 5 mg Aspirin (Ecotrin -) 81 mg PO DAILY [facility] Last Admin: 04/15/17 10:10 Dose: 81 mg Collagenase (Santyl -) 1 applic TP DAILY [facility] Last Admin: 04/15/17 11:15 Dose: 1 applic Heparin Sodium (Porcine) (Heparin -) 5,000 unit SQ BID [facility] Last Admin: 04/15/17 10:10 Dose: 5,000 unit Hydrochlorothiazide (Hctz -) 25 mg PO BID [facility] Last Admin: 04/15/17 10:10 Dose: 25 mg Sodium Chloride (1/2 Normal Saline) 1,000 mls @ 40 mls/hr IV ASDIR [facility] Last Admin: 04/14/17 17:13 Dose: 40 mls/hr Vancomycin HCl 1,000 mg/ (Sodium Chloride) 250 mls @ 166.667 mls/hr IVPB BID [facility] PRN Reason: Protocol Last Admin: 04/15/17 10:10 Dose: 166.667 mls/hr Insulin Aspart (Novolog Vial Sliding Scale -) 1 vial SQ ACHS [facility] PRN Reason: Protocol Last Admin: 04/15/17 11:57 Dose: 4 units Insulin Detemir (Levemir Vial) 30 units SQ AM [facility] Last Admin: 04/15/17 06:20 Dose: 30 units Metformin HCl (Glucophage -) 500 mg PO BIDI [facility] Last Admin: 04/15/17 06:20 Dose: 500 mg Metoprolol Succinate (Toprol Xl -) 25 mg PO DAILY [facility] Last Admin: 04/15/17 10:10 Dose: 25 mg Pantoprazole Sodium (Protonix -) 40 mg PO DAILY [facility] Last Admin: 04/15/17 10:10 Dose: 40 mg - Objective Vital Signs: Vital Signs Temperature 97.9 F 04/15/17 15:23 Pulse Rate 83 04/15/17 15:23 Respiratory Rate 20 04/15/17 15:23 Blood Pressure 147/78 04/15/17 15:23 O2 Sat by Pulse Oximetry (%) 96 04/15/17 09:52 Constitutional: Yes: No Distress, Calm Cardiovascular: Yes: Regular Rate and Rhythm Respiratory: Yes: Regular, CTA Bilaterally Gastrointestinal: Yes: Normal Bowel Sounds, Soft Musculoskeletal: Yes: Other Extremities: Yes: Other Wound/Incision: Yes: Dressing Dry and Intact Neurological: Yes: Alert, Oriented Psychiatric: Yes: Alert, Oriented Labs: CBC, BMP 04/11/17 10:00 04/14/17 07:20 INR, PTT INR 1.07 (0.82-1.09) 04/08/17 13:57 Assessment/Plan Problem List - Problems (1) Cellulitis Code(s): L03.90 - CELLULITIS, UNSPECIFIED Qualifiers: Site of cellulitis: extremity Site of cellulitis of extremity: lower extremity Laterality: left Qualified Code(s): L03.116 - Cellulitis of left lower limb (2) Osteomyelitis Code(s): M86.9 - OSTEOMYELITIS, UNSPECIFIED Qualifiers: Osteomyelitis location: foot Laterality: left 3 gangrene of the toes plan all reports noted will continue vanco patient will need vanco for a total of 4 weeks rest as per primary team
[2017-04-15] MEDS: SODIUM CHLORIDE 0.45% 1,000 ML IV SCH (17:22)
--- NOTE | 2017-04-15 21:21 | PN ---
Progress Note, Physician History of Present Illness: Pt having some lt knee pain - Current Medication List Current Medications: Active Medications Amlodipine Besylate (Norvasc -) 5 mg PO DAILY [facility] Last Admin: 04/15/17 10:10 Dose: 5 mg Aspirin (Ecotrin -) 81 mg PO DAILY [facility] Last Admin: 04/15/17 10:10 Dose: 81 mg Collagenase (Santyl -) 1 applic TP DAILY [facility] Last Admin: 04/15/17 11:15 Dose: 1 applic Heparin Sodium (Porcine) (Heparin -) 5,000 unit SQ BID [facility] Last Admin: 04/15/17 10:10 Dose: 5,000 unit Hydrochlorothiazide (Hctz -) 25 mg PO BID [facility] Last Admin: 04/15/17 10:10 Dose: 25 mg Sodium Chloride (1/2 Normal Saline) 1,000 mls @ 40 mls/hr IV ASDIR [facility] Last Admin: 04/15/17 17:22 Dose: 40 mls/hr Vancomycin HCl 1,000 mg/ (Sodium Chloride) 250 mls @ 166.667 mls/hr IVPB BID [facility] PRN Reason: Protocol Last Admin: 04/15/17 10:10 Dose: 166.667 mls/hr Insulin Aspart (Novolog Vial Sliding Scale -) 1 vial SQ ACHS [facility] PRN Reason: Protocol Last Admin: 04/15/17 17:22 Dose: 2 units Insulin Detemir (Levemir Vial) 30 units SQ AM [facility] Last Admin: 04/15/17 06:20 Dose: 30 units Metformin HCl (Glucophage -) 500 mg PO BIDI [facility] Last Admin: 04/15/17 17:21 Dose: 500 mg Metoprolol Succinate (Toprol Xl -) 25 mg PO DAILY [facility] Last Admin: 04/15/17 10:10 Dose: 25 mg Pantoprazole Sodium (Protonix -) 40 mg PO DAILY [facility] Last Admin: 04/15/17 10:10 Dose: 40 mg - Objective Vital Signs: Vital Signs Temperature 97.9 F 04/15/17 15:23 Pulse Rate 83 04/15/17 15:23 Respiratory Rate 20 04/15/17 15:23 Blood Pressure 147/78 04/15/17 15:23 O2 Sat by Pulse Oximetry (%) 96 04/15/17 09:52 HENT: Yes: WNL Neck: Yes: WNL, Supple Cardiovascular: Yes: WNL, Regular Rate and Rhythm Respiratory: Yes: WNL, Regular, CTA Bilaterally Gastrointestinal: Yes: WNL, Normal Bowel Sounds, Soft Extremities: Yes: Other ((+) lt toe amputation w/ dressing) Labs: CBC, BMP 04/11/17 10:00 04/14/17 07:20 INR, PTT INR 1.07 (0.82-1.09) 04/08/17 13:57 Problem List - Problems (1) Diabetic infection of left foot Assessment/Plan: H/O osteo/gangrene S/P amputation 3rd lt toe Wound culture grew MRSA/grp strept Cont IV vanco for 4 weeks DC planning Code(s): E11.69 - TYPE 2 DIABETES MELLITUS WITH OTHER SPECIFIED COMPLICATION L08.9 - LOCAL INFECTION OF THE SKIN AND SUBCUTANEOUS TISSUE, UNSP (2) Diabetes Assessment/Plan: Cont sliding scale w/ coverge/levemir/metformin Code(s): E11.9 - TYPE 2 DIABETES MELLITUS WITHOUT COMPLICATIONS Qualifiers: Diabetes mellitus type: other specified (including LASHAY) Diabetes mellitus complication status: with hyperglycemia Diabetes mellitus plate gauger insulin use: unspecified plate gauger insulin use status Qualified Code (s): E13.65 - Other specified diabetes mellitus with hyperglycemia; Z79.4 - 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
[2017-04-16] MEDS: metFORMIN HCL 500 MG TABLET (FP) PO SCH ×2 (06:54→17:50)
[2017-04-16] MEDS: INSULIN DETEMIR 100 UNITS/ML MDV SQ SCH (06:55)
[2017-04-16] MEDS: INSULIN SLIDING SCALE (NOVOLOG) 1 VIAL SQ SCH ×4 (06:55→21:57)
[2017-04-16 07:05] LABS: BASOPHIL 0.5 % (0-2.0); EOSINOPHIL 1.7 % (0-4.5); MCH 26.1 pg (25.7-33.7); MCHC 32.9 g/dl (32.0-35.9); MEAN CELL VOLUME 79.3 fl (80-96); MEAN PLT VOLUME 8.4 fl (7.5-11.1); NEUTROPHILS 59.1 % (42.8-82.8); PLATELET COUNT 407 K/MM3 (134-434); RDW 14.8 % (11.9-15.9); WHITE BLOOD COUNT 8.5 K/mm3 (4.0-10.0)
[2017-04-16 07:27] LABS: ALBUMIN 3.4 g/dl (3.4-5.0); ANION GAP 10 (8-16); BILIRUBIN,TOTAL 0.8 mg/dL (0.2-1.0); CALCIUM 9.3 mg/dL (8.5-10.1); CO2 30 mmol/L (21-32); CREATININE 0.7 mg/dL (0.7-1.3); GLUCOSE,RANDOM 160 mg/dL (74-106); SGOT/AST 7 U/L (15-37); SGPT/ALT 16 U/L (12-78); TOT PROT 7.5 g/dl (6.4-8.2)
[2017-04-16 07:28] LABS: ALK PHOS 116 U/L (45-117)
[2017-04-16] MEDS ORDERED: INSULIN (NOVOLOG) ASPART 100 UNITS/ML 10ML VIAL ONE ×3 (07:30→20:35)
[2017-04-16] MEDS: HEPARIN NA (PORCINE) 5,000 UNITS/ML 1ML VIAL SQ SCH ×2 (09:49→21:57)
[2017-04-16] MEDS: amLODIPine BESYLATE 5 MG TABLET (FP) PO SCH (09:49)
[2017-04-16] MEDS: METOPROLOL SUCCINATE 25 MG TAB.SR.24H (FP) PO SCH (09:49)
[2017-04-16] MEDS: ASPIRIN COATED 81 MG TABLET.EC PO SCH (09:49)
[2017-04-16] MEDS: PANTOPRAZOLE 40 MG TABLET (FP) PO SCH (09:49)
[2017-04-16] MEDS: HYDROCHLOROTHIAZIDE 25 MG TABLET (FP) PO SCH ×2 (09:49→21:57)
[2017-04-16] MEDS: COLLAGENASE CLOSTRIDIUM HIST. 30 GRAMS TUBE TP SCH (11:59)
[2017-04-16] MEDS: VANCOMYCIN 1,000 MG in SODIUM CHLORIDE 250 ML IVPB SCH ×2 (11:59→21:57)
--- NOTE | 2017-04-16 12:29 | PATH ---
Surgical Pathology Report Patient Name: CLEMENTE WATSON [facility]. Rec. #: [id number] /Age/Gender: 1960 (Age: 56) / M Account: [id number] Location: [address] [place] [address]/[facility] Taken: 04/11/2017 Received: 04/12/2017 Reported: 04/16/2017 Physicians: Gal Chew DPM Specimen(s) Received 3RD TOE LEFT FOOT Clinical History Diabetic infection of left foot/gangrene Final Diagnosis LEFT FOOT, THIRD TOE, AMPUTATION: SKIN AND UNDERLYING SOFT TISSUE WITH GANGRENOUS NECROSIS. UNDERLYING BONE WITH ASSOCIATD ACUTE AND CHRONIC OSTEOMYELITIS. SKIN AND SOFT TISSUE AT THE RESECTION MARGIN APPEAR VIABLE WITH CHRONIC INFLAMMATION. BONE AT THE RESECTION MARGIN WITH EVIDENCE OF CHRONIC OSTEOMYELITIS. ADDITIONAL FRAGMENT OF BONE WITH EVIDENCE OF CHRONIC OSTEOMYELITIS. Electronically Signed Brian Watts M.D. Gross Description Received in formalin labeled "third toe left foot" is a 3.5 x 2.1 x 2.1 cm toe amputation specimen. The entire distal aspect of the toe displays a black-green, gangrenous lesion extending to 0.2 cm from the skin and soft tissue margin. The lesion involves the underlying bone. Separately received within the same container is a 2.8 x 1.2 x 1.0 cm irregular, unoriented portion of bone. Patient Care Manager sections are submitted in 5 cassettes as follows: 1-lesion with underlying bone, following decalcification; 2-bone margin, following decalcification; 3-skin and soft tissue margin; [id number] margins from separately received portion of bone. /04/12/201704/12/2017
--- NOTE | 2017-04-16 14:59 | PN ---
Progress Note, Physician History of Present Illness: doing well no new issues - Current Medication List Current Medications: Active Medications Amlodipine Besylate (Norvasc -) 5 mg PO DAILY [facility] Last Admin: 04/16/17 09:49 Dose: 5 mg Aspirin (Ecotrin -) 81 mg PO DAILY [facility] Last Admin: 04/16/17 09:49 Dose: 81 mg Collagenase (Santyl -) 1 applic TP DAILY [facility] Last Admin: 04/16/17 11:59 Dose: 1 applic Heparin Sodium (Porcine) (Heparin -) 5,000 unit SQ BID [facility] Last Admin: 04/16/17 09:49 Dose: 5,000 unit Hydrochlorothiazide (Hctz -) 25 mg PO BID [facility] Last Admin: 04/16/17 09:49 Dose: 25 mg Vancomycin HCl 1,000 mg/ (Sodium Chloride) 250 mls @ 166.667 mls/hr IVPB BID [facility] PRN Reason: Protocol Last Admin: 04/16/17 11:59 Dose: 166.667 mls/hr Insulin Aspart (Novolog Vial Sliding Scale -) 1 vial SQ ACHS [facility] PRN Reason: Protocol Last Admin: 04/16/17 12:20 Dose: 2 units Insulin Detemir (Levemir Vial) 30 units SQ AM [facility] Last Admin: 04/16/17 06:55 Dose: 30 units Metformin HCl (Glucophage -) 500 mg PO BIDI [facility] Last Admin: 04/16/17 06:54 Dose: 500 mg Metoprolol Succinate (Toprol Xl -) 25 mg PO DAILY [facility] Last Admin: 04/16/17 09:49 Dose: 25 mg Pantoprazole Sodium (Protonix -) 40 mg PO DAILY [facility] Last Admin: 04/16/17 09:49 Dose: 40 mg - Objective Vital Signs: Vital Signs Temperature 98.2 F 04/16/17 06:00 Pulse Rate 83 04/16/17 06:00 Respiratory Rate 18 04/16/17 06:00 Blood Pressure 150/77 04/16/17 06:00 O2 Sat by Pulse Oximetry (%) 96 04/15/17 21:00 Constitutional: Yes: No Distress, Calm Eyes: Yes: Conjunctiva Clear Cardiovascular: Yes: Regular Rate and Rhythm Respiratory: Yes: Regular, CTA Bilaterally Gastrointestinal: Yes: Normal Bowel Sounds, Soft Musculoskeletal: Yes: Other Extremities: Yes: Other Wound/Incision: Yes: Dressing Dry and Intact Neurological: Yes: Alert, Oriented Psychiatric: Yes: Alert Labs: CBC, BMP 04/16/17 06:10 04/16/17 06:10 INR, PTT INR 1.07 (0.82-1.09) 04/08/17 13:57 Assessment/Plan Problem List - Problems (1) Cellulitis Code(s): L03.90 - CELLULITIS, UNSPECIFIED Qualifiers: Site of cellulitis: extremity Site of cellulitis of extremity: lower extremity Laterality: left Qualified Code(s): L03.116 - Cellulitis of left lower limb (2) Osteomyelitis Code(s): M86.9 - OSTEOMYELITIS, UNSPECIFIED Qualifiers: Osteomyelitis location: foot Laterality: left 3 gangrene of the toes plan all reports noted will continue vanco patient will need vanco for a total of 4 weeks rest as per primary team patient will need vanco trough every week cbc crp esr and bmp every week
--- NOTE | 2017-04-16 23:52 | PN ---
Progress Note, Physician - Current Medication List Current Medications: Active Medications Amlodipine Besylate (Norvasc -) 5 mg PO DAILY [facility] Last Admin: 04/16/17 09:49 Dose: 5 mg Aspirin (Ecotrin -) 81 mg PO DAILY [facility] Last Admin: 04/16/17 09:49 Dose: 81 mg Collagenase (Santyl -) 1 applic TP DAILY [facility] Last Admin: 04/16/17 11:59 Dose: 1 applic Heparin Sodium (Porcine) (Heparin -) 5,000 unit SQ BID [facility] Last Admin: 04/16/17 21:57 Dose: 5,000 unit Hydrochlorothiazide (Hctz -) 25 mg PO BID [facility] Last Admin: 04/16/17 21:57 Dose: 25 mg Vancomycin HCl 1,000 mg/ (Sodium Chloride) 250 mls @ 166.667 mls/hr IVPB BID [facility] PRN Reason: Protocol Last Admin: 04/16/17 21:57 Dose: 166.667 mls/hr Insulin Aspart (Novolog Vial Sliding Scale -) 1 vial SQ ACHS [facility] PRN Reason: Protocol Last Admin: 04/16/17 21:57 Dose: 2 units Insulin Detemir (Levemir Vial) 30 units SQ AM [facility] Last Admin: 04/16/17 06:55 Dose: 30 units Metformin HCl (Glucophage -) 500 mg PO BIDI [facility] Last Admin: 04/16/17 17:50 Dose: 500 mg Metoprolol Succinate (Toprol Xl -) 25 mg PO DAILY [facility] Last Admin: 04/16/17 09:49 Dose: 25 mg Pantoprazole Sodium (Protonix -) 40 mg PO DAILY [facility] Last Admin: 04/16/17 09:49 Dose: 40 mg - Objective Vital Signs: Vital Signs Temperature 98.2 F 04/16/17 18:00 Pulse Rate 89 04/16/17 18:00 Respiratory Rate 18 04/16/17 18:00 Blood Pressure 135/96 04/16/17 18:00 O2 Sat by Pulse Oximetry (%) 96 04/15/17 21:00 Labs: CBC, BMP 04/16/17 06:10 04/16/17 06:10 INR, PTT INR 1.07 (0.82-1.09) 04/08/17 13:57 Problem List - Problems (1) Diabetic infection of left foot Code(s): E11.69 - TYPE 2 DIABETES MELLITUS WITH OTHER SPECIFIED COMPLICATION L08.9 - LOCAL INFECTION OF THE SKIN AND SUBCUTANEOUS TISSUE, UNSP (2) Diabetes Code(s): E11.9 - TYPE 2 DIABETES MELLITUS WITHOUT COMPLICATIONS Qualifiers: Diabetes mellitus type: other specified (including LASHAY) Diabetes mellitus complication status: with hyperglycemia Diabetes mellitus termite treater helper insulin use: unspecified termite treater helper insulin use status Qualified Code (s): E13.65 - Other specified diabetes mellitus with hyperglycemia; Z79.4 - alf (current) use of insulin (3) HTN (hypertension) Code(s): I10 - ESSENTIAL (PRIMARY) HYPERTENSION (4) Chronic CHF Code(s): I50.9 - HEART FAILURE, UNSPECIFIED
[2017-04-17] MEDS: metFORMIN HCL 500 MG TABLET (FP) PO SCH (06:39)
[2017-04-17] MEDS: INSULIN DETEMIR 100 UNITS/ML MDV SQ SCH (06:39)
[2017-04-17] MEDS: INSULIN SLIDING SCALE (NOVOLOG) 1 VIAL SQ SCH ×2 (06:40→11:42)
[2017-04-17 09:03] VITALS: TEMP 98.2
[2017-04-17] MEDS ORDERED: PT OWN MED DRAWER 7, Y5N ONE (09:08)
[2017-04-17] MEDS: ASPIRIN COATED 81 MG TABLET.EC PO SCH (09:15)
[2017-04-17] MEDS: HYDROCHLOROTHIAZIDE 25 MG TABLET (FP) PO SCH (09:16)
[2017-04-17] MEDS: amLODIPine BESYLATE 5 MG TABLET (FP) PO SCH (09:16)
[2017-04-17] MEDS: METOPROLOL SUCCINATE 25 MG TAB.SR.24H (FP) PO SCH (09:17)
[2017-04-17] MEDS: VANCOMYCIN 1,000 MG in SODIUM CHLORIDE 250 ML IVPB SCH (09:17)
[2017-04-17] MEDS: PANTOPRAZOLE 40 MG TABLET (FP) PO SCH (09:17)
[2017-04-17] MEDS: COLLAGENASE CLOSTRIDIUM HIST. 30 GRAMS TUBE TP SCH (09:19)
[2017-04-17] MEDS: HEPARIN NA (PORCINE) 5,000 UNITS/ML 1ML VIAL SQ SCH (11:23)
[2017-04-17] MEDS ORDERED: INSULIN (NOVOLOG) ASPART 100 UNITS/ML 10ML VIAL ONE (11:40)
[2017-04-17 15:46] VITALS: BP 122/74; PULSE 86
== END 2017-04-17 11:51 | disposition home or self-care (01) | DRG 314 ==
LOC: JER 13:01 → JERBED 13:55 → J5S 04-09 00:17
PROVIDERS: ADMIT Internal Medicine; ATTEND Internal Medicine
PROC: 0Y6U0Z0 Detachment at Left 3rd Toe, Complete, Open Approach (ICD-10-PCS; principal; 2017-04-08)
DX: T87.44 Infection of amputation stump, left lower extremity (principal); I96 Gangrene, not elsewhere classified; Y83.5 Amputation of limb(s) as the cause of abnormal reaction of the patient, or of later complication, without mention of misadventure at the time of the procedure; M86.9 Osteomyelitis, unspecified; Z79.4 Long term (current) use of insulin; E78.00 Pure hypercholesterolemia, unspecified; Z87.891 Personal history of nicotine dependence; Z89.422 Acquired absence of other left toe(s); G62.9 Polyneuropathy, unspecified; Z68.36 Body mass index [BMI] 36.0-36.9, adult; E66.01 Morbid (severe) obesity due to excess calories; L03.116 Cellulitis of left lower limb
CPT/HCPCS: 36415; 71010-TC; 80048; 80053; 81003; 82803; 83036; 83605; 84484; 85025; 85610; 85651; 85730; 86140; 86850; 86900; 86901; 87040; 87070; 87086; 87186; 87205; 88305-TC; 88311-TC; 93005; 93010; 94760; 97116-GP; 97161-GP; 99282-25; G0480; J1644

== ENCOUNTER 2017-04-30 11:00 | Inpatient (IN) | payer OTHER ==
[2017-04-29 15:18] VITALS: BMI 37.0
[2017-05-07] MEDS ORDERED: MINERAL OIL 25 ML OIL ONE (13:51)
[2017-05-07] MEDS ORDERED: BUPIVACAINE HCL/PF 0.5% (5MG/ML) 10 ML VIAL ONE ×2 (13:54→14:25)
[2017-05-07] MEDS ORDERED: LIDOCAINE 1%/EPI 1:100000 (50 ML MULTI DOSE VIAL) ONE ×2 (13:54→16:15)
[2017-05-07] MEDS ORDERED: ceFAZolin SODIUM 1 GM VIAL IVPB ONE (14:05)
[2017-05-07] MEDS ORDERED: MIDAZOLAM HCL 2 MG/2 ML SINGLE DOSE VIAL ONE ×2 (14:20→14:49)
[2017-05-07] MEDS ORDERED: ceFAZolin SODIUM 1 GM VIAL ONE (14:59)
[2017-05-07] MEDS ORDERED: MINERAL OIL 25 ML OIL TP ONE (15:35)
[2017-05-07] MEDS ORDERED: PROPOFOL 20 ML ONE ×2 (15:57→16:23)
[2017-05-07] MEDS ORDERED: LIDOCAINE 1%/EPI 1:100000 (20 ML MULTI DOSE VIAL) IJ ONE ×2 (16:02→16:19)
[2017-05-07] MEDS ORDERED: ACETAMINOPHEN INJECTION 100 ML IVPB ONE (16:23)
[2017-05-07] MEDS ORDERED: BACITRACIN 50,000 UNITS VIAL TP ONE (16:27)
[2017-05-07] MEDS ORDERED: ACETAMINOPHEN 1000 MG/100 ML VIAL (NON FORMULARY) IVPB ONE (16:29)
[2017-05-07] MEDS ORDERED: oxyCODONE HCL 5 MG TABLET PO PRN (17:03)
[2017-05-07] MEDS ORDERED: PROMETHAZINE HCL 25 MG/1 ML VIAL IVPUSH PRN (17:03)
[2017-05-07] MEDS ORDERED: ONDANSETRON 4 MG/2 ML VIAL IVPUSH PRN (17:03)
[2017-05-07] MEDS ORDERED: MUPIROCIN 2% TOPICAL OINTMENT 22 GM TUBE TP ONE ×2 (17:15→17:25)
--- NOTE | 2017-05-07 21:36 | HP ---
DATE OF ADMISSION: 05/07/2017 CHIEF COMPLAINT: Diabetic chronic wounds, sole left foot, and dorsum Left foot. HISTORY: Patient is a 56-year-old, type 2 diabetic, Afro-Honduran male, has been under the care of Dr. Chew for large foot ulcer on the sole of the Left foot including on the dorsum of the foot. Patient has recently undergone surgery by Dr. Chew with partial ostectomy Second metatarsal bone, complete amputation of the 2nd toe. Open wound is treated with VAC therapy. Plan of care : Patient is here for split-thickness skin grafting. PAST HISTORY: Past history is relevant for the following conditions: History of acute and chronic congestive heart failure, CHF, diabetes type 2, infection of left foot, gangrene, for which he was admitted recently, underwent amputation, history of hypertension, morbid obesity, osteomyelitis, peripheral edema, peripheral neuropathy, phlebitis, developed postoperative complication of hemorrhage from the incision site. ALLERGIES: Unknown. MEDICATIONS: On vancomycin for osteomyelitis; metformin; Glucophage 500 mg b.i.d.; insulin Levemir 30 units b.i.d. subcutaneous; hydrochlorothiazide 25 mg b.i.d.; esomeprazole; magnesium 40 mg b.i.d.; collagenase for local treatment of left foot wound; metoprolol 25 mg daily; aspirin (Ecotrin, coated) 81 mg (patient held it for surgery); amlodipine besylate, which is Norvasc 5 mg daily. He has had his vaccinations in the past. PAST HISTORY, SOCIAL HISTORY: Non alcohol abuser. No history of substance abuse. Smoking: He is a former smoker. LABORATORIES: His glucose by glucometer today is 183. MICROBIOLOGY: Recently, he has not had any, except on dorsum of the foot a culture was done in [facility] on April 24. It is positive for Acinetobacter baumannii with MRSA Right foot. Apr 08 reportLeft foot positive for MRSA, Enterococcus bone positive for Proteus vulgaris, Streptococcus agalactiae group B, and Streptococcus viridans. EXAMINATION: A very pleasant 5 feet 9 inch male, 251 pounds, BSA is 2.27, BMI is 37.1. Examination of left foot shows a large ulcer located 2/3 rd sole of foot Two-thirds sole of the foot is covered with hypertrophic granulation tissue. Amputated 2nd toe deep wound which extends to the bone. Wound is under VAC for closure. There is no erythema, no odor. PLAN OF CARE 1. Excision of hypertrophic granulation tissue. 2. Split-thickness skin graft. 3. VAC application. 4. Continue treatment for osteomyelitis, vancomycin intravenously. Patient will be hospitalized for bed rest and VAC therapy. Procedure is scheduled for April,. Erika [id number] MTDD
[2017-05-07] MEDS ORDERED: VANCOMYCIN 1,000 MG in SODIUM CHLORIDE 250 ML IVPB ONE (23:30)
[2017-05-08] MEDS: INSULIN DETEMIR 100 UNITS/ML MDV SQ SCH ×2 (06:43→16:49)
[2017-05-08] MEDS: metFORMIN HCL 500 MG TABLET (FP) PO SCH ×2 (06:43→16:50)
[2017-05-08] MEDS: INSULIN SLIDING SCALE (NOVOLOG) 1 VIAL SQ SCH ×4 (06:44→22:12)
[2017-05-08] MEDS ORDERED: INSULIN (NOVOLOG) ASPART 100 UNITS/ML 10ML VIAL ONE ×3 (06:58→21:28)
[2017-05-08] MEDS ORDERED: PT OWN MED DRAWER 7, Y5N ONE ×2 (06:59→21:00)
[2017-05-08 07:36] LABS: BASOPHIL 0.7 % (0-2.0); EOSINOPHIL 2.1 % (0-4.5); MCH 25.3 pg (25.7-33.7); MCHC 32.5 g/dl (32.0-35.9); MEAN CELL VOLUME 77.9 fl (80-96); MEAN PLT VOLUME 8.3 fl (7.5-11.1); NEUTROPHILS 63.8 % (42.8-82.8); PLATELET COUNT 381 K/MM3 (134-434); RDW 14.4 % (11.9-15.9); WHITE BLOOD COUNT 6.5 K/mm3 (4.0-10.0)
[2017-05-08 08:09] LABS: ALBUMIN 2.6 g/dl (3.4-5.0); ALK PHOS 104 U/L (45-117); ANION GAP 8 (8-16); BILIRUBIN,TOTAL 0.6 mg/dL (0.2-1.0); CALCIUM 8.4 mg/dL (8.5-10.1); CO2 28 mmol/L (21-32); CREATININE 0.6 mg/dL (0.7-1.3); GLUCOSE,RANDOM 180 mg/dL (74-106); SGOT/AST 8 U/L (15-37); SGPT/ALT 11 U/L (12-78); TOT PROT 6.2 g/dl (6.4-8.2)
--- NOTE | 2017-05-08 08:59 | OP ---
DATE OF OPERATION: DATE OF DICTATION: 05/07/2017 PREOPERATIVE DIAGNOSES: 1. Large diabetic ulcer wound, left sole of the foot. 2. Open wound, dorsum of left foot. PROCEDURE DONE: 1. Excisional debridement of skin and subcutaneous tissue. 2. Split-thickness skin graft, 1/12 of an inch, 100 sq cm. SURGEON: Ivone Stern MD ANESTHESIA: 1. Spinal block. 2. IV sedation. 3. Lidocaine 1% with epinephrine subcutaneous injection. HISTORY: The patient is a 56-year-old male diabetic, recently underwent surgery by Dr. Ragland for osteomyelitis of the 2nd toe. He is post surgery amputation and osteectomy and has a very large foot ulcer which requires skin grafting. PROCEDURE: The patient was brought to the operating room. Procedure, patient, and the site were identified. Standard timeout was carried out. At this time spinal anesthesia had been given by the anesthesiologist. Once the patient was sedated , left leg was washed and cleaned with Betadine solution and Hibiclens. Donor area was cleaned on the right thigh with Hibiclens. The tourniquet had been applied at 250 mmHg. Leg had been kept elevated for 3 minutes before tourniquet was inflated. The split-thickness skin graft was taken prior to starting the excisional debridement, 1/12 of an inch, using a Alex dermatome, meshed to 1-1/2 times. Using a 10 scalpel blade, excisional debridement of the ulcer skin /SC was carried out. Sharp excisional debridement using 10-blade. While the tourniquet was on venous bleeding was not profusely, at this stage tourniquet was deflated. Bleeding was controlled using electro-cautery. wound was then well irrigated with the Pulsavac using 4 L. Bacitracin first liter After hemostasis was secured, graft was applied, surgically fixated using uzair Excess graft was reapplied to the donor area for early epithelialization. Estimated blood loss 150-200 mL. Dressing was applied consisting of Xeroform, Bactroban, 4 x 4 soaked in Bacitracin solution, combined Kerlix and Coban. Donor area was covered with Xeroform and Tegaderm. Patient was sent to recovery room in a stable condition. He will be kept in inpatient care, requires complete bed rest and elevation for success of the graft. Discussion medical doctor, Dr. Oh. Reasons for admission explained. IVONE STERN M.D. [id number] MTDD
[2017-05-08] MEDS ORDERED: VANCOMYCIN 1,000 MG in SODIUM CHLORIDE 250 ML IVPB SCH (10:00)
[2017-05-08] MEDS: ASPIRIN COATED 81 MG TABLET.EC PO SCH (10:08)
[2017-05-08] MEDS: PANTOPRAZOLE 40 MG TABLET (FP) PO SCH ×2 (10:08→22:12)
[2017-05-08] MEDS: ACETAMINOPHEN 325 MG TABLET (FP) PO PRN (10:09)
[2017-05-08] MEDS: HYDROCHLOROTHIAZIDE 25 MG TABLET (FP) PO SCH ×2 (10:09→22:12)
[2017-05-08] MEDS: amLODIPine BESYLATE 5 MG TABLET (FP) PO SCH (10:10)
[2017-05-08] MEDS: COLLAGENASE CLOSTRIDIUM HIST. 30 GRAMS TUBE TP SCH (10:10)
[2017-05-08] MEDS: METOPROLOL SUCCINATE 25 MG TAB.SR.24H (FP) PO SCH (10:10)
[2017-05-08] MEDS: HEPARIN NA (PORCINE) 5,000 UNITS/ML 1ML VIAL SQ SCH ×2 (10:10→22:11)
--- NOTE | 2017-05-08 13:58 | CON.ID ---
Consult Consult Specialty:: infectious diseases Reason for Consultation:: wound infection - History of Present Illness History of Present Illness: 56 yo diabetic male has already had partial amputation of left foot....patient was treated by me for mrsa infection and is getting vanco whose duration i had put him on 4 weeks patient was evaluated for skin grafting and patient underwent skin grafting by plastics patient currently admitted and will need to continue treatment patient has not been feeling too well and says he has been weak for last few days currently he feels better - History Source History Provided By: Patient Limitations to Obtaining History: No Limitations - Past Medical History 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 Cardio/Vascular: Yes: HTN, Hyperlipdemia Renal/: Yes: Renal Inusuff Infectious Disease: Yes: Other (LLE osteo on MRI here 06/2015) Endocrine: Yes: Diabetes Mellitus (on Victoza) - Past Surgical History Past Surgical History: Yes: Hernia Repair (left inguinal) - Alcohol/Substance Use Hx Alcohol Use: No History of Substance Use: reports: None - Smoking History Smoking history: Former smoker Have you smoked in the past 12 months: No If you are a former smoker, when did you quit?: 1976 - Social History ADL: Independent History of Recent Travel: No Home Medications - Allergies Allergies/Adverse Reactions: Allergies Allergy/AdvReac Type Severity Reaction Status Date / Time No Known Allergies Allergy Verified 05/07/17 10:59 - Home Medications Home Medications: Ambulatory Orders Aspirin Coated [Ecotrin -] 81 mg PO DAILY #30 tablet.ec 04/25/16 Insulin (Levemir) [Levemir Vial] 30 units SQ BID 04/28/16 Amlodipine Besylate [Norvasc -] 5 mg PO DAILY 02/15/17 Esomeprazole Magnesium 40 mg PO BID 02/15/17 Hydrochlorothiazide [Hctz -] 25 mg PO BID 02/15/17 Metformin HCl [Glucophage -] 500 mg PO BID 02/15/17 Metoprolol Succinate [Toprol XL -] 25 mg PO DAILY 02/15/17 Collagenase Clostridium Hist. [Santyl -] 1 applic TP DAILY #60 tube 02/28/17 Vancomycin/0.9 % Sod Chloride [Vanco 1 Gram/250 ml-0.9% NaCl] 1 gm IV DAILY #14 plast..bag 04/16/17 Review of Systems - Review of Systems Constitutional: reports: Weakness Neck: reports: No Symptoms Cardiovascular: reports: No Symptoms Respiratory: reports: No Symptoms Gastrointestinal: reports: No Symptoms Genitourinary: reports: No Symptoms Musculoskeletal: reports: No Symptoms Integumentary: reports: No Symptoms Neurological: reports: No Symptoms Hematology/Lymphatic: reports: No Symptoms Psychiatric: reports: No Symptoms Physical Exam Vital Signs: Vital Signs Temperature 98.2 F 05/08/17 10:00 Pulse Rate 85 05/08/17 10:00 Respiratory Rate 18 05/08/17 10:00 Blood Pressure 142/73 05/08/17 10:00 O2 Sat by Pulse Oximetry (%) 100 05/07/17 21:00 Constitutional: Yes: No Distress, Calm, Obese Eyes: Yes: Conjunctiva Clear Cardiovascular: Yes: Regular Rate and Rhythm Respiratory: Yes: Regular, CTA Bilaterally Gastrointestinal: Yes: Normal Bowel Sounds, Soft Breast(s): Yes: Other Musculoskeletal: Yes: Other Extremities: Yes: Other (skin graft site rt thigh reddish dressing wet) Wound/Incision: Yes: Dressing Dry and Intact (of the leg), Other (of the thigh dressing wet) Neurological: Yes: Alert, Oriented Labs: CBC, BMP 05/08/17 06:00 05/08/17 06:00 Assessment/Plan - Problems (1) Cellulitis Code(s): L03.90 - CELLULITIS, UNSPECIFIED Qualifiers: Site of cellulitis: extremity Site of cellulitis of extremity: lower extremity Laterality: left Qualified Code(s): L03.116 - Cellulitis of left lower limb (2) Osteomyelitis Code(s): M86.9 - OSTEOMYELITIS, UNSPECIFIED Qualifiers: Osteomyelitis location: foot Laterality: left 3 gangrene of the toes 4 skin graft plan continue vanco will check the levels rest continue dsg as per plastics and primary
--- NOTE | 2017-05-08 14:27 | PN ---
Progress Note (short form) - Note Progress Note: Anesthesia POD#1 S/P Heel Debridement,skin graft under spinal anesthesia VSS,no N/V,pain is under control. No complications to anesthesia seen. Ginger De Leon MD.
--- NOTE | 2017-05-08 15:20 | HP ---
Admitting History and Physical - Admission History of Present Illness: Pt is a 56 y/o male w/ PMH significant for HTN, HLD, CAD, diabetes, peripheral neuropathy, CKD, anemia and osteomyelitis. Pt had is s/p amputation of toes on lt foot for osteo and has been on IV vanco through a pic line and needs another 1-2 weeks of vanco. Pt had amputation of 3rd, 4th and 5th toes of Lt foot and underwent skin grafting and during surgery pt had about 200cc of blood loss. 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 Neuropathy Cardiovascular: Yes: CAD, HTN, Hyperlipdemia Renal/: Yes: Renal Inusuff Heme/Onc: Yes: Anemia Infectious Disease: Yes: Other (LLE osteo on MRI here 06/2015) Endocrine: Yes: Diabetes Mellitus (on Victoza) - Past Surgical History Past Surgical History: Yes: Hernia Repair (left inguinal) Additional Past Surgical History: Amputation lt 3rd, 4th and 5 th toes - Smoking History Smoking history: Former smoker Have you smoked in the past 12 months: No If you are a former smoker, when did you quit?: 1976 - Alcohol/Substance Use Hx Alcohol Use: No History of Substance Use: reports: None - Social History ADL: Independent History of Recent Travel: No Home Medications - Allergies Allergies/Adverse Reactions: Allergies Allergy/AdvReac Type Severity Reaction Status Date / Time No Known Allergies Allergy Verified 05/07/17 10:59 - Home Medications Home Medications: Ambulatory Orders Aspirin Coated [Ecotrin -] 81 mg PO DAILY #30 tablet.ec 04/25/16 Insulin (Levemir) [Levemir Vial] 30 units SQ BID 04/28/16 Amlodipine Besylate [Norvasc -] 5 mg PO DAILY 02/15/17 Esomeprazole Magnesium 40 mg PO BID 02/15/17 Hydrochlorothiazide [Hctz -] 25 mg PO BID 02/15/17 Metformin HCl [Glucophage -] 500 mg PO BID 02/15/17 Metoprolol Succinate [Toprol XL -] 25 mg PO DAILY 02/15/17 Collagenase Clostridium Hist. [Santyl -] 1 applic TP DAILY #60 tube 02/28/17 Vancomycin/0.9 % Sod Chloride [Vanco 1 Gram/250 ml-0.9% NaCl] 1 gm IV DAILY #14 plast..bag 04/16/17 Family Disease History - Family Disease History Family History: Unremarkable Review of Systems - Review of Systems Constitutional: reports: No Symptoms Eyes: reports: No Symptoms HENT: reports: No Symptoms Neck: reports: No Symptoms Cardiovascular: reports: No Symptoms Respiratory: reports: No Symptoms Gastrointestinal: reports: No Symptoms Musculoskeletal: reports: Other (Foot pain) Physical Examination Vital Signs: Vital Signs Temperature 98.2 F 05/08/17 10:00 Pulse Rate 85 05/08/17 10:00 Respiratory Rate 18 05/08/17 10:00 Blood Pressure 142/73 05/08/17 10:00 O2 Sat by Pulse Oximetry (%) 96 05/08/17 09:00 Constitutional: Yes: Well Nourished HENT: Yes: WNL Neck: Yes: WNL, Supple Cardiovascular: Yes: WNL, Regular Rate and Rhythm Respiratory: Yes: WNL, Regular, CTA Bilaterally Gastrointestinal: Yes: WNL, Normal Bowel Sounds, Soft, Abdomen, Obese Extremities: Yes: Other (Rt thigh dressing wet w/ blood Lt foot wrapped indressing) Labs: CBC, BMP 05/08/17 06:00 05/08/17 06:00 Problem List - Problems (1) Diabetic infection of left foot Assessment/Plan: S/P skin grafting from rt thigh Observe for bleeding monitor H/H Cont IV vanco Ambulation as per surgery Cont wound care Code(s): E11.69 - TYPE 2 DIABETES MELLITUS WITH OTHER SPECIFIED COMPLICATION L08.9 - LOCAL INFECTION OF THE SKIN AND SUBCUTANEOUS TISSUE, UNSP (2) Anemia Assessment/Plan: Due to chronic dz Monitor H/H Code(s): D64.9 - ANEMIA, UNSPECIFIED (3) CKD (chronic kidney disease) Code(s): N18.9 - CHRONIC KIDNEY DISEASE, UNSPECIFIED (4) Diabetes Assessment/Plan: Cont metformin Cont sliding scale w/ coverage Code(s): E11.9 - TYPE 2 DIABETES MELLITUS WITHOUT COMPLICATIONS Qualifiers: Diabetes mellitus type: other specified (including LASHAY) Diabetes mellitus complication status: with hyperglycemia Diabetes mellitus senior care insulin use: unspecified senior care insulin use status Qualified Code (s): E13.65 - Other specified diabetes mellitus with hyperglycemia; Z79.4 - 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
[2017-05-08] MEDS: VANCOMYCIN 1,000 MG in DEXTROSE 5%-WATER - 250 ML IVPB SCH (16:49)
[2017-05-08] MEDS ORDERED: INSULIN DETEMIR 100 UNITS/ML MDV SQ ONE (17:13)
[2017-05-09] MEDS: VANCOMYCIN 1,000 MG in DEXTROSE 5%-WATER - 250 ML IVPB SCH ×2 (04:30→16:57)
[2017-05-09] MEDS: INSULIN DETEMIR 100 UNITS/ML MDV SQ SCH ×2 (06:11→16:57)
[2017-05-09] MEDS: metFORMIN HCL 500 MG TABLET (FP) PO SCH ×2 (06:12→16:57)
[2017-05-09] MEDS: INSULIN SLIDING SCALE (NOVOLOG) 1 VIAL SQ SCH ×4 (06:12→21:23)
[2017-05-09] MEDS ORDERED: INSULIN (NOVOLOG) ASPART 100 UNITS/ML 10ML VIAL ONE (06:43)
[2017-05-09] MEDS ORDERED: PT OWN MED DRAWER 7, Y5N ONE ×2 (06:44→20:22)
[2017-05-09 07:47] LABS: BASOPHIL 0.7 % (0-2.0); EOSINOPHIL 2.4 % (0-4.5); MCH 25.1 pg (25.7-33.7); MCHC 32.3 g/dl (32.0-35.9); MEAN CELL VOLUME 77.7 fl (80-96); MEAN PLT VOLUME 8.5 fl (7.5-11.1); NEUTROPHILS 53.9 % (42.8-82.8); PLATELET COUNT 415 K/MM3 (134-434); RDW 14.4 % (11.9-15.9); WHITE BLOOD COUNT 5.8 K/mm3 (4.0-10.0)
[2017-05-09 08:15] LABS: ALBUMIN 2.7 g/dl (3.4-5.0); CALCIUM 8.7 mg/dL (8.5-10.1); GLUCOSE,RANDOM 171 mg/dL (74-106)
[2017-05-09 08:22] LABS: ALK PHOS 100 U/L (45-117); ANION GAP 7 (8-16); BILIRUBIN,TOTAL 0.4 mg/dL (0.2-1.0); CO2 29 mmol/L (21-32); CREATININE 0.7 mg/dL (0.7-1.3); SGOT/AST 8 U/L (15-37); SGPT/ALT 11 U/L (12-78); TOT PROT 6.3 g/dl (6.4-8.2)
[2017-05-09] MEDS: HEPARIN NA (PORCINE) 5,000 UNITS/ML 1ML VIAL SQ SCH ×2 (10:45→21:26)
[2017-05-09] MEDS: ASPIRIN COATED 81 MG TABLET.EC PO SCH (10:45)
[2017-05-09] MEDS: amLODIPine BESYLATE 5 MG TABLET (FP) PO SCH (10:45)
[2017-05-09] MEDS: HYDROCHLOROTHIAZIDE 25 MG TABLET (FP) PO SCH ×2 (10:45→21:25)
[2017-05-09] MEDS: PANTOPRAZOLE 40 MG TABLET (FP) PO SCH ×2 (10:46→21:25)
[2017-05-09] MEDS: COLLAGENASE CLOSTRIDIUM HIST. 30 GRAMS TUBE TP SCH (10:46)
[2017-05-09] MEDS: ACETAMINOPHEN 325 MG TABLET (FP) PO PRN (10:46)
[2017-05-09] MEDS: METOPROLOL SUCCINATE 25 MG TAB.SR.24H (FP) PO SCH (10:46)
[2017-05-09] MEDS: oxyCODONE HCL 5 MG TABLET PO PRN (10:46)
--- NOTE | 2017-05-09 14:32 | PATH ---
Surgical Pathology Report Patient Name: CLEMENTE WATSON Med. Rec. #: [id number] /Age/Gender: 1960 (Age: 56) / M Account: [id number] Location: [facility] MED/SURG Taken: 05/07/2017 Received: 05/08/2017 Reported: 05/09/2017 Physicians: Daksha Borden M.D. Specimen(s) Received TISSUE DEBRIDEMENT LEFT FOOT Clinical History Left diabetic foot wound Final Diagnosis SKIN AND SOFT TISSUE, LEFT FOOT, WOUND, DEBRIDEMENT: ULCERATED AND NECROTIC SKIN WITH HYPERKERATOSIS AND UNDERLYING SOFT TISSUE WITH ACUTE NECROTIZING AND CHRONIC INFLAMMATION AND INFLAMED GRANULATION TISSUE. Electronically Signed Brian Watts M.D. Gross Description Received in formalin, labeled "tissue debridement, left foot diabetes and ulcer" is a 5 x 3 x 0.7 cm in aggregate size multiple fragments of ellington-brown and ellington-arauz partially necrotic appearing skin and soft tissue. Waiter/Waitress Bar sections are submitted in one cassette. AF/05/08/2017 final/05/08/2017
--- NOTE | 2017-05-09 15:03 | PN ---
Progress Note, Physician History of Present Illness: patient doing well no new issues - Current Medication List Current Medications: Active Medications Acetaminophen (Tylenol -) 325 mg PO Q4H PRN PRN Reason: PAIN Stop: 05/10/17 18:26 Last Admin: 05/09/17 10:46 Dose: 325 mg Amlodipine Besylate (Norvasc -) 5 mg PO DAILY [facility] Last Admin: 05/09/17 10:45 Dose: 5 mg Aspirin (Ecotrin -) 81 mg PO DAILY [facility] Last Admin: 05/09/17 10:45 Dose: 81 mg Collagenase (Santyl -) 1 applic TP DAILY [facility] Last Admin: 05/09/17 10:46 Dose: Not Given Heparin Sodium (Porcine) (Heparin -) 5,000 unit SQ BID [facility] Last Admin: 05/09/17 10:45 Dose: 5,000 unit Hydrochlorothiazide (Hctz -) 25 mg PO BID [facility] Last Admin: 05/09/17 10:45 Dose: 25 mg Vancomycin HCl 1,000 mg/ (Dextrose) 250 mls @ 250 mls/hr IVPB BID@0400,1600 [facility] PRN Reason: Protocol Last Admin: 05/09/17 04:30 Dose: 250 mls/hr Insulin Aspart (Novolog Vial Sliding Scale -) 1 vial SQ ACHS [facility] PRN Reason: Protocol Last Admin: 05/09/17 12:34 Dose: 2 units Insulin Detemir (Levemir Vial) 30 units SQ BID@0700,1630 [facility] Last Admin: 05/09/17 06:11 Dose: 30 units Metformin HCl (Glucophage -) 500 mg PO BID@0700,1630 [facility] Last Admin: 05/09/17 06:12 Dose: 500 mg Metoprolol Succinate (Toprol Xl -) 25 mg PO DAILY [facility] Last Admin: 05/09/17 10:46 Dose: 25 mg Oxycodone HCl (Roxicodone -) 5 mg PO Q4H PRN PRN Reason: PAIN Last Admin: 05/09/17 10:46 Dose: 5 mg Pantoprazole Sodium (Protonix -) 40 mg PO BID [facility] Last Admin: 05/09/17 10:46 Dose: 40 mg - Objective Vital Signs: Vital Signs Temperature 97.9 F 05/09/17 07:19 Pulse Rate 80 05/09/17 07:19 Respiratory Rate 20 05/09/17 07:19 Blood Pressure 130/69 05/09/17 07:19 O2 Sat by Pulse Oximetry (%) 96 05/08/17 21:00 Constitutional: Yes: No Distress, Calm Cardiovascular: Yes: Regular Rate and Rhythm Respiratory: Yes: Regular, CTA Bilaterally Gastrointestinal: Yes: Normal Bowel Sounds, Soft Musculoskeletal: Yes: WNL Extremities: Yes: Other Wound/Incision: Yes: Dressing Dry and Intact, Other (rt thigh wound wet) Psychiatric: Yes: Alert, Oriented Labs: CBC, BMP 05/09/17 06:10 05/09/17 06:10 Assessment/Plan - Problems (1) Cellulitis Code(s): L03.90 - CELLULITIS, UNSPECIFIED Qualifiers: Site of cellulitis: extremity Site of cellulitis of extremity: lower extremity Laterality: left Qualified Code(s): L03.116 - Cellulitis of left lower limb (2) Osteomyelitis Code(s): M86.9 - OSTEOMYELITIS, UNSPECIFIED Qualifiers: Osteomyelitis location: foot Laterality: left 3 gangrene of the toes 4 skin graft plan continue vanco will check the levels rest continue dsg as per plastics and primary will check anant mitchell
--- NOTE | 2017-05-09 23:28 | PN ---
Progress Note, Physician History of Present Illness: No new complaints Pt unable to ambulate yet - Current Medication List Current Medications: Active Medications Acetaminophen (Tylenol -) 325 mg PO Q4H PRN PRN Reason: PAIN Stop: 05/10/17 18:26 Last Admin: 05/09/17 10:46 Dose: 325 mg Amlodipine Besylate (Norvasc -) 5 mg PO DAILY [facility] Last Admin: 05/09/17 10:45 Dose: 5 mg Aspirin (Ecotrin -) 81 mg PO DAILY [facility] Last Admin: 05/09/17 10:45 Dose: 81 mg Collagenase (Santyl -) 1 applic TP DAILY [facility] Last Admin: 05/09/17 10:46 Dose: Not Given Heparin Sodium (Porcine) (Heparin -) 5,000 unit SQ BID [facility] Last Admin: 05/09/17 21:26 Dose: 5,000 unit Hydrochlorothiazide (Hctz -) 25 mg PO BID [facility] Last Admin: 05/09/17 21:25 Dose: 25 mg Vancomycin HCl 1,000 mg/ (Dextrose) 250 mls @ 250 mls/hr IVPB BID@0400,1600 [facility] PRN Reason: Protocol Last Admin: 05/09/17 16:57 Dose: 250 mls/hr Insulin Aspart (Novolog Vial Sliding Scale -) 1 vial SQ ACHS [facility] PRN Reason: Protocol Last Admin: 05/09/17 21:23 Dose: 2 units Insulin Detemir (Levemir Vial) 30 units SQ BID@0700,1630 [facility] Last Admin: 05/09/17 16:57 Dose: 30 units Metformin HCl (Glucophage -) 500 mg PO BID@0700,1630 [facility] Last Admin: 05/09/17 16:57 Dose: 500 mg Metoprolol Succinate (Toprol Xl -) 25 mg PO DAILY [facility] Last Admin: 05/09/17 10:46 Dose: 25 mg Oxycodone HCl (Roxicodone -) 5 mg PO Q4H PRN PRN Reason: PAIN Last Admin: 05/09/17 10:46 Dose: 5 mg Pantoprazole Sodium (Protonix -) 40 mg PO BID [facility] Last Admin: 05/09/17 21:25 Dose: 40 mg - Objective Vital Signs: Vital Signs Temperature 97.7 F 05/09/17 15:26 Pulse Rate 73 05/09/17 15:26 Respiratory Rate 20 05/09/17 15:26 Blood Pressure 134/77 05/09/17 15:26 O2 Sat by Pulse Oximetry (%) 96 05/09/17 09:00 Constitutional: Yes: Well Nourished Neck: Yes: WNL, Supple Cardiovascular: Yes: WNL, Regular Rate and Rhythm Respiratory: Yes: WNL, Regular, CTA Bilaterally Gastrointestinal: Yes: WNL, Normal Bowel Sounds, Soft Extremities: Yes: Other ((+) dressing rt thigh and lt foot) Labs: CBC, BMP 05/09/17 06:10 05/09/17 06:10 Problem List - Problems (1) Diabetic infection of left foot Assessment/Plan: S/P skin grafting from rt thigh Observe for bleeding monitor H/H Cont IV vanco Await surgical recommendations about when pt can ambulate Cont wound care Code(s): E11.69 - TYPE 2 DIABETES MELLITUS WITH OTHER SPECIFIED COMPLICATION L08.9 - LOCAL INFECTION OF THE SKIN AND SUBCUTANEOUS TISSUE, UNSP (2) Anemia Assessment/Plan: Due to chronic dz Monitor H/H Code(s): D64.9 - ANEMIA, UNSPECIFIED (3) CKD (chronic kidney disease) Code(s): N18.9 - CHRONIC KIDNEY DISEASE, UNSPECIFIED (4) Diabetes Code(s): E11.9 - TYPE 2 DIABETES MELLITUS WITHOUT COMPLICATIONS Qualifiers: Diabetes mellitus type: other specified (including LASHAY) Diabetes mellitus complication status: with hyperglycemia Diabetes mellitus group home insulin use: unspecified rodent exterminator insulin use status Qualified Code (s): E13.65 - Other specified diabetes mellitus with hyperglycemia; Z79.4 - long-term (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
[2017-05-10] MEDS: VANCOMYCIN 1,000 MG in DEXTROSE 5%-WATER - 250 ML IVPB SCH ×2 (04:22→15:55)
[2017-05-10] MEDS: oxyCODONE HCL 5 MG TABLET PO PRN ×2 (04:27→15:54)
[2017-05-10] MEDS: INSULIN SLIDING SCALE (NOVOLOG) 1 VIAL SQ SCH ×4 (06:24→21:25)
[2017-05-10] MEDS: INSULIN DETEMIR 100 UNITS/ML MDV SQ SCH ×2 (06:24→17:36)
[2017-05-10] MEDS: metFORMIN HCL 500 MG TABLET (FP) PO SCH ×2 (06:25→17:36)
[2017-05-10] MEDS: HEPARIN NA (PORCINE) 5,000 UNITS/ML 1ML VIAL SQ SCH ×2 (10:07→21:25)
[2017-05-10] MEDS: amLODIPine BESYLATE 5 MG TABLET (FP) PO SCH (10:07)
[2017-05-10] MEDS: ASPIRIN COATED 81 MG TABLET.EC PO SCH (10:07)
[2017-05-10] MEDS: HYDROCHLOROTHIAZIDE 25 MG TABLET (FP) PO SCH ×2 (10:07→21:25)
[2017-05-10] MEDS: METOPROLOL SUCCINATE 25 MG TAB.SR.24H (FP) PO SCH (10:08)
[2017-05-10] MEDS: PANTOPRAZOLE 40 MG TABLET (FP) PO SCH ×2 (10:08→21:25)
[2017-05-10] MEDS: COLLAGENASE CLOSTRIDIUM HIST. 30 GRAMS TUBE TP SCH (10:08)
[2017-05-10] MEDS ORDERED: INSULIN (NOVOLOG) ASPART 100 UNITS/ML 10ML VIAL ONE (12:06)
--- NOTE | 2017-05-10 13:52 | PN ---
Progress Note, Physician History of Present Illness: patient doing well no new issues no complaints - Current Medication List Current Medications: Active Medications Acetaminophen (Tylenol -) 325 mg PO Q4H PRN PRN Reason: PAIN Stop: 05/10/17 18:26 Last Admin: 05/09/17 10:46 Dose: 325 mg Amlodipine Besylate (Norvasc -) 5 mg PO DAILY [facility] Last Admin: 05/10/17 10:07 Dose: 5 mg Aspirin (Ecotrin -) 81 mg PO DAILY [facility] Last Admin: 05/10/17 10:07 Dose: 81 mg Collagenase (Santyl -) 1 applic TP DAILY [facility] Last Admin: 05/10/17 10:08 Dose: Not Given Heparin Sodium (Porcine) (Heparin -) 5,000 unit SQ BID [facility] Last Admin: 05/10/17 10:07 Dose: 5,000 unit Hydrochlorothiazide (Hctz -) 25 mg PO BID [facility] Last Admin: 05/10/17 10:07 Dose: 25 mg Vancomycin HCl 1,000 mg/ (Dextrose) 250 mls @ 250 mls/hr IVPB BID@0400,1600 [facility] PRN Reason: Protocol Last Admin: 05/10/17 04:22 Dose: 250 mls/hr Insulin Aspart (Novolog Vial Sliding Scale -) 1 vial SQ ACHS [facility] PRN Reason: Protocol Last Admin: 05/10/17 12:17 Dose: 2 units Insulin Detemir (Levemir Vial) 30 units SQ BID@0700,1630 [facility] Last Admin: 05/10/17 06:24 Dose: 30 units Metformin HCl (Glucophage -) 500 mg PO BID@0700,1630 [facility] Last Admin: 05/10/17 06:25 Dose: 500 mg Metoprolol Succinate (Toprol Xl -) 25 mg PO DAILY [facility] Last Admin: 05/10/17 10:08 Dose: 25 mg Oxycodone HCl (Roxicodone -) 5 mg PO Q4H PRN PRN Reason: PAIN Last Admin: 05/10/17 04:27 Dose: 5 mg Pantoprazole Sodium (Protonix -) 40 mg PO BID [facility] Last Admin: 05/10/17 10:08 Dose: 40 mg - Objective Vital Signs: Vital Signs Temperature 98.6 F 05/10/17 08:44 Pulse Rate 100 H 05/10/17 08:44 Respiratory Rate 20 05/10/17 08:44 Blood Pressure 176/80 05/10/17 08:44 O2 Sat by Pulse Oximetry (%) 96 05/09/17 21:00 Constitutional: Yes: No Distress, Calm Neck: Yes: Supple, Trachea Midline Cardiovascular: Yes: Regular Rate and Rhythm Respiratory: Yes: Regular, CTA Bilaterally Musculoskeletal: Yes: WNL Extremities: Yes: Other Wound/Incision: Yes: Dressing Dry and Intact, Other (skin graft dsg slightly wet patient comfortable though) Neurological: Yes: Alert, Oriented Psychiatric: Yes: Alert, Oriented Labs: CBC, BMP 05/09/17 06:10 05/09/17 06:10 Assessment/Plan - Problems (1) Cellulitis Code(s): L03.90 - CELLULITIS, UNSPECIFIED Qualifiers: Site of cellulitis: extremity Site of cellulitis of extremity: lower extremity Laterality: left Qualified Code(s): L03.116 - Cellulitis of left lower limb (2) Osteomyelitis Code(s): M86.9 - OSTEOMYELITIS, UNSPECIFIED Qualifiers: Osteomyelitis location: foot Laterality: left 3 gangrene of the toes 4 skin graft plan continue vanco will check vanco levels res as per primary await plastics to evaluate
--- NOTE | 2017-05-10 15:50 | PN ---
Progress Note (short form) - Note Progress Note: FU post skin grafting Day3 Afebrile, awake alert not in distress, no calf pain, no chest pain Dressing changed Left foot and donor site right thigh Graft pink . adherent, minimal discharge, donor area dressing changed , xeroform in place, no erythema no odor Selected Entries 05/10/17 05/10/17 08:44 15:18 Temperature 97.8 F Pulse Rate 100 H 82 Blood Pressure 165/80 Blood Pressure Sitting Position Plan : 1. No VAC 2 Dressings as needed 3 Patient ambulate, no pressure on the Left foot graft is well vascularized 4 SNF, care during transportation, not to dangle leg 5 Continue IV antibiotics
[2017-05-10] MEDS: ACETAMINOPHEN 325 MG TABLET (FP) PO PRN (15:53)
[2017-05-10] MEDS ORDERED: PT OWN MED DRAWER 7, Y5N ONE (20:22)
--- NOTE | 2017-05-10 22:02 | PN ---
Progress Note, Physician History of Present Illness: No new complaints - Current Medication List Current Medications: Active Medications Amlodipine Besylate (Norvasc -) 5 mg PO DAILY [facility] Last Admin: 05/10/17 10:07 Dose: 5 mg Aspirin (Ecotrin -) 81 mg PO DAILY [facility] Last Admin: 05/10/17 10:07 Dose: 81 mg Collagenase (Santyl -) 1 applic TP DAILY [facility] Last Admin: 05/10/17 10:08 Dose: Not Given Heparin Sodium (Porcine) (Heparin -) 5,000 unit SQ BID [facility] Last Admin: 05/10/17 21:25 Dose: 5,000 unit Hydrochlorothiazide (Hctz -) 25 mg PO BID [facility] Last Admin: 05/10/17 21:25 Dose: 25 mg Vancomycin HCl 1,000 mg/ (Dextrose) 250 mls @ 250 mls/hr IVPB BID@0400,1600 [facility] PRN Reason: Protocol Last Admin: 05/10/17 15:55 Dose: 250 mls/hr Insulin Aspart (Novolog Vial Sliding Scale -) 1 vial SQ ACHS [facility] PRN Reason: Protocol Last Admin: 05/10/17 21:25 Dose: 2 units Insulin Detemir (Levemir Vial) 30 units SQ BID@0700,1630 [facility] Last Admin: 05/10/17 17:36 Dose: 30 units Metformin HCl (Glucophage -) 500 mg PO BID@0700,1630 [facility] Last Admin: 05/10/17 17:36 Dose: 500 mg Metoprolol Succinate (Toprol Xl -) 25 mg PO DAILY [facility] Last Admin: 05/10/17 10:08 Dose: 25 mg Oxycodone HCl (Roxicodone -) 5 mg PO Q4H PRN PRN Reason: PAIN Stop: 05/11/17 10:00 Last Admin: 05/10/17 15:54 Dose: 5 mg Pantoprazole Sodium (Protonix -) 40 mg PO BID [facility] Last Admin: 05/10/17 21:25 Dose: 40 mg - Objective Vital Signs: Vital Signs Temperature 97.9 F 05/10/17 16:20 Pulse Rate 73 05/10/17 16:20 Respiratory Rate 20 05/10/17 16:20 Blood Pressure 136/64 05/10/17 16:20 O2 Sat by Pulse Oximetry (%) 96 05/09/17 21:00 Constitutional: Yes: Well Nourished Neck: Yes: WNL, Supple Cardiovascular: Yes: WNL, Regular Rate and Rhythm Respiratory: Yes: WNL, Regular, CTA Bilaterally Gastrointestinal: Yes: WNL, Normal Bowel Sounds, Soft Extremities: Yes: Other ((+) dressing rt thigh and lt foot) Labs: CBC, BMP 05/09/17 06:10 05/09/17 06:10 Problem List - Problems (1) Diabetic infection of left foot Code(s): E11.69 - TYPE 2 DIABETES MELLITUS WITH OTHER SPECIFIED COMPLICATION L08.9 - LOCAL INFECTION OF THE SKIN AND SUBCUTANEOUS TISSUE, UNSP (2) Anemia Code(s): D64.9 - ANEMIA, UNSPECIFIED (3) CKD (chronic kidney disease) Code(s): N18.9 - CHRONIC KIDNEY DISEASE, UNSPECIFIED (4) Diabetes Code(s): E11.9 - TYPE 2 DIABETES MELLITUS WITHOUT COMPLICATIONS Qualifiers: Diabetes mellitus type: other specified (including LASHAY) Diabetes mellitus complication status: with hyperglycemia Diabetes mellitus long term care pharmacist insulin use: unspecified long term care pharmacist insulin use status Qualified Code (s): E13.65 - Other specified diabetes mellitus with hyperglycemia; E13.65 - Other specified diabetes mellitus with hyperglycemia; E13.65 - Other specified diabetes mellitus with hyperglycemia; E13.65 - Other specified diabetes mellitus with hyperglycemia; Z79.4 - penitentiary (current) use of insulin; Z79.4 - penitentiary (current) use of insulin; Z79.4 - penitentiary (current) use of insulin ; Z79.4 - 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
[2017-05-11] MEDS: VANCOMYCIN 1,000 MG in DEXTROSE 5%-WATER - 250 ML IVPB SCH ×2 (04:00→17:57)
[2017-05-11] MEDS: metFORMIN HCL 500 MG TABLET (FP) PO SCH ×2 (06:06→17:57)
[2017-05-11] MEDS: INSULIN DETEMIR 100 UNITS/ML MDV SQ SCH ×2 (06:06→17:57)
[2017-05-11] MEDS: INSULIN SLIDING SCALE (NOVOLOG) 1 VIAL SQ SCH ×4 (06:10→22:28)
[2017-05-11] MEDS: METOPROLOL SUCCINATE 25 MG TAB.SR.24H (FP) PO SCH (10:05)
[2017-05-11] MEDS: PANTOPRAZOLE 40 MG TABLET (FP) PO SCH ×2 (10:05→21:10)
[2017-05-11] MEDS: HYDROCHLOROTHIAZIDE 25 MG TABLET (FP) PO SCH ×2 (10:05→21:10)
[2017-05-11] MEDS: ASPIRIN COATED 81 MG TABLET.EC PO SCH (10:05)
[2017-05-11] MEDS: HEPARIN NA (PORCINE) 5,000 UNITS/ML 1ML VIAL SQ SCH ×2 (10:05→21:10)
[2017-05-11] MEDS: amLODIPine BESYLATE 5 MG TABLET (FP) PO SCH (10:05)
[2017-05-11] MEDS ORDERED: FLU VACCINE QUAD 60 MCG/0.5 ML (MDV 17-18) IM ONE (11:00)
[2017-05-11] MEDS: COLLAGENASE CLOSTRIDIUM HIST. 30 GRAMS TUBE TP SCH (12:43)
--- NOTE | 2017-05-11 14:58 | PN ---
Progress Note, Physician History of Present Illness: Pt seen and examined, chart/lab results reviewed. Pt with Lt foot wound infection/OM s/p graft. States he feels well and has no specific complaints. - Current Medication List Current Medications: Active Medications Amlodipine Besylate (Norvasc -) 5 mg PO DAILY [facility] Last Admin: 05/11/17 10:05 Dose: 5 mg Aspirin (Ecotrin -) 81 mg PO DAILY [facility] Last Admin: 05/11/17 10:05 Dose: 81 mg Collagenase (Santyl -) 1 applic TP DAILY [facility] Last Admin: 05/11/17 12:43 Dose: Not Given Heparin Sodium (Porcine) (Heparin -) 5,000 unit SQ BID [facility] Last Admin: 05/11/17 10:05 Dose: 5,000 unit Hydrochlorothiazide (Hctz -) 25 mg PO BID [facility] Last Admin: 05/11/17 10:05 Dose: 25 mg Vancomycin HCl 1,000 mg/ (Dextrose) 250 mls @ 250 mls/hr IVPB BID@0400,1600 [facility] PRN Reason: Protocol Last Admin: 05/11/17 04:00 Dose: 250 mls/hr Insulin Aspart (Novolog Vial Sliding Scale -) 1 vial SQ ACHS [facility] PRN Reason: Protocol Last Admin: 05/11/17 13:14 Dose: 2 units Insulin Detemir (Levemir Vial) 30 units SQ BID@0700,1630 [facility] Last Admin: 05/11/17 06:06 Dose: 30 units Metformin HCl (Glucophage -) 500 mg PO BID@0700,1630 [facility] Last Admin: 05/11/17 06:06 Dose: 500 mg Metoprolol Succinate (Toprol Xl -) 25 mg PO DAILY [facility] Last Admin: 05/11/17 10:05 Dose: 25 mg Pantoprazole Sodium (Protonix -) 40 mg PO BID [facility] Last Admin: 05/11/17 10:05 Dose: 40 mg - Objective Vital Signs: Vital Signs Temperature 97.9 F 05/11/17 08:28 Pulse Rate 93 H 05/11/17 08:28 Respiratory Rate 18 05/11/17 08:28 Blood Pressure 163/90 05/11/17 08:28 O2 Sat by Pulse Oximetry (%) 96 05/09/17 21:00 Constitutional: Yes: No Distress, Calm HENT: Yes: WNL Neck: Yes: Supple Cardiovascular: Yes: Regular Rate and Rhythm Respiratory: Yes: CTA Bilaterally Gastrointestinal: Yes: Normal Bowel Sounds, Soft Genitourinary: Yes: WNL Extremities: Yes: Other (Lt foot with graft/ dressing intact, Rt thigh c/d/i, no tenderness) Wound/Incision: Yes: Clean/Dry Labs: CBC, BMP 05/09/17 06:10 05/09/17 06:10 Vancomycin T - 16 (therapeutic) Problem List - Problems (1) Cellulitis Code(s): L03.90 - CELLULITIS, UNSPECIFIED Qualifiers: Site of cellulitis: extremity Site of cellulitis of extremity: lower extremity Laterality: left Qualified Code(s): L03.116 - Cellulitis of left lower limb (2) Diabetes Code(s): E11.9 - TYPE 2 DIABETES MELLITUS WITHOUT COMPLICATIONS Qualifiers: Diabetes mellitus type: other specified (including LASHAY) Diabetes mellitus complication status: with hyperglycemia Diabetes mellitus senior behavioral scientist insulin use: unspecified [place] [facility] insulin use status Qualified Code (s): E13.65 - Other specified diabetes mellitus with hyperglycemia; Z79.4 - senior living (current) use of insulin (3) Diabetic infection of left foot Code(s): E11.69 - TYPE 2 DIABETES MELLITUS WITH OTHER SPECIFIED COMPLICATION L08.9 - LOCAL INFECTION OF THE SKIN AND SUBCUTANEOUS TISSUE, UNSP (4) Gangrene of toe of left foot Code(s): I96 - GANGRENE, NOT ELSEWHERE CLASSIFIED (5) Osteomyelitis Code(s): M86.9 - OSTEOMYELITIS, UNSPECIFIED Qualifiers: Osteomyelitis type: other acute Osteomyelitis location: foot Laterality: left Qualified Code(s): M86.172 - Other acute osteomyelitis, left ankle and foot Assessment/Plan s/p skin graft - continue antibiotics - wound care, leg elevation
[2017-05-11] MEDS ORDERED: INSULIN (NOVOLOG) ASPART 100 UNITS/ML 10ML VIAL ONE (18:27)
[2017-05-11] MEDS ORDERED: INSULIN DETEMIR 100 UNITS/ML MDV SQ ONE (18:28)
--- NOTE | 2017-05-11 23:46 | PN ---
Progress Note, Physician History of Present Illness: No new complaints - Current Medication List Current Medications: Active Medications Amlodipine Besylate (Norvasc -) 5 mg PO DAILY [facility] Last Admin: 05/11/17 10:05 Dose: 5 mg Aspirin (Ecotrin -) 81 mg PO DAILY [facility] Last Admin: 05/11/17 10:05 Dose: 81 mg Collagenase (Santyl -) 1 applic TP DAILY [facility] Last Admin: 05/11/17 12:43 Dose: Not Given Heparin Sodium (Porcine) (Heparin -) 5,000 unit SQ BID [facility] Last Admin: 05/11/17 21:10 Dose: 5,000 unit Hydrochlorothiazide (Hctz -) 25 mg PO BID [facility] Last Admin: 05/11/17 21:10 Dose: 25 mg Vancomycin HCl 1,000 mg/ (Dextrose) 250 mls @ 250 mls/hr IVPB BID@0400,1600 [facility] PRN Reason: Protocol Last Admin: 05/11/17 17:57 Dose: 250 mls/hr Insulin Aspart (Novolog Vial Sliding Scale -) 1 vial SQ ACHS [facility] PRN Reason: Protocol Last Admin: 05/11/17 22:28 Dose: 6 units Insulin Detemir (Levemir Vial) 30 units SQ BID@0700,1630 [facility] Last Admin: 05/11/17 17:57 Dose: 30 units Metformin HCl (Glucophage -) 500 mg PO BID@0700,1630 [facility] Last Admin: 05/11/17 17:57 Dose: 500 mg Metoprolol Succinate (Toprol Xl -) 25 mg PO DAILY [facility] Last Admin: 05/11/17 10:05 Dose: 25 mg Pantoprazole Sodium (Protonix -) 40 mg PO BID [facility] Last Admin: 05/11/17 21:10 Dose: 40 mg - Objective Vital Signs: Vital Signs Temperature 98.2 F 05/11/17 21:21 Pulse Rate 76 05/11/17 21:21 Respiratory Rate 20 05/11/17 21:21 Blood Pressure 157/76 05/11/17 21:21 O2 Sat by Pulse Oximetry (%) 100 05/11/17 21:00 Constitutional: Yes: Well Nourished Neck: Yes: WNL, Supple Cardiovascular: Yes: WNL, Regular Rate and Rhythm Respiratory: Yes: WNL, Regular, CTA Bilaterally Gastrointestinal: Yes: WNL, Normal Bowel Sounds, Soft Extremities: Yes: Other ((+) wound w/ dressing rt thigh and lt foot) Labs: CBC, BMP 05/09/17 06:10 05/09/17 06:10 Problem List - Problems (1) Diabetic infection of left foot Assessment/Plan: S/P skin grafting from rt thigh Cont IV vanco Vanco trough therapeutic Cont wound care ?STR Code(s): E11.69 - TYPE 2 DIABETES MELLITUS WITH OTHER SPECIFIED COMPLICATION L08.9 - LOCAL INFECTION OF THE SKIN AND SUBCUTANEOUS TISSUE, UNSP (2) Anemia Assessment/Plan: Due to chronic dz Monitor H/H Code(s): D64.9 - ANEMIA, UNSPECIFIED (3) CKD (chronic kidney disease) Code(s): N18.9 - CHRONIC KIDNEY DISEASE, UNSPECIFIED (4) Diabetes Assessment/Plan: Cont metformin Cont sliding scale w/ coverage Code(s): E11.9 - TYPE 2 DIABETES MELLITUS WITHOUT COMPLICATIONS Qualifiers: Diabetes mellitus type: other specified (including LASHAY) Diabetes mellitus complication status: with hyperglycemia Diabetes mellitus manager long term care insulin use: unspecified assisted insulin use status Qualified Code (s): E13.65 - Other specified diabetes mellitus with hyperglycemia; E13.65 - Other specified diabetes mellitus with hyperglycemia; E13.65 - Other specified diabetes mellitus with hyperglycemia; E13.65 - Other specified diabetes mellitus with hyperglycemia; Z79.4 - medical terminologist (current) use of insulin; Z79.4 - medical terminologist (current) use of insulin; Z79.4 - medical terminologist (current) use of insulin ; Z79.4 - medical terminologist (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
[2017-05-12] MEDS: VANCOMYCIN 1,000 MG in DEXTROSE 5%-WATER - 250 ML IVPB SCH ×2 (03:22→16:31)
[2017-05-12] MEDS: INSULIN DETEMIR 100 UNITS/ML MDV SQ SCH ×2 (06:14→16:32)
[2017-05-12] MEDS: INSULIN SLIDING SCALE (NOVOLOG) 1 VIAL SQ SCH ×4 (06:14→21:12)
[2017-05-12] MEDS: metFORMIN HCL 500 MG TABLET (FP) PO SCH ×2 (06:18→16:31)
[2017-05-12 07:16] LABS: ALBUMIN 3.1 g/dl (3.4-5.0); ALK PHOS 107 U/L (45-117); ANION GAP 6 (8-16); BILIRUBIN,TOTAL 0.6 mg/dL (0.2-1.0); CALCIUM 8.9 mg/dL (8.5-10.1); CO2 30 mmol/L (21-32); CREATININE 0.9 mg/dL (0.7-1.3); GLUCOSE,RANDOM 144 mg/dL (74-106); SGOT/AST 9 U/L (15-37); SGPT/ALT 16 U/L (12-78); TOT PROT 7.2 g/dl (6.4-8.2)
[2017-05-12 07:25] LABS: BASOPHIL 0.8 % (0-2.0); EOSINOPHIL 1.2 % (0-4.5); MCH 25.3 pg (25.7-33.7); MCHC 32.9 g/dl (32.0-35.9); MEAN CELL VOLUME 77.1 fl (80-96); NEUTROPHILS 60.1 % (42.8-82.8); PLATELET COUNT 529 K/MM3 (134-434); RDW 14.8 % (11.9-15.9); WHITE BLOOD COUNT 8.8 K/mm3 (4.0-10.0)
[2017-05-12] MEDS: amLODIPine BESYLATE 5 MG TABLET (FP) PO SCH (10:44)
[2017-05-12] MEDS: PANTOPRAZOLE 40 MG TABLET (FP) PO SCH ×2 (10:44→21:10)
[2017-05-12] MEDS: ASPIRIN COATED 81 MG TABLET.EC PO SCH (10:44)
[2017-05-12] MEDS: METOPROLOL SUCCINATE 25 MG TAB.SR.24H (FP) PO SCH (10:44)
[2017-05-12] MEDS: HYDROCHLOROTHIAZIDE 25 MG TABLET (FP) PO SCH ×2 (10:44→21:10)
[2017-05-12] MEDS: HEPARIN NA (PORCINE) 5,000 UNITS/ML 1ML VIAL SQ SCH ×2 (10:44→21:14)
[2017-05-12] MEDS: COLLAGENASE CLOSTRIDIUM HIST. 30 GRAMS TUBE TP SCH (11:29)
--- NOTE | 2017-05-12 12:42 | PN ---
Progress Note, Physician History of Present Illness: Pt states he feels well. Denies fever/chills. - Current Medication List Current Medications: Active Medications Amlodipine Besylate (Norvasc -) 5 mg PO DAILY [facility] Last Admin: 05/12/17 10:44 Dose: 5 mg Aspirin (Ecotrin -) 81 mg PO DAILY [facility] Last Admin: 05/12/17 10:44 Dose: 81 mg Collagenase (Santyl -) 1 applic TP DAILY [facility] Last Admin: 05/12/17 11:29 Dose: Not Given Heparin Sodium (Porcine) (Heparin -) 5,000 unit SQ BID [facility] Last Admin: 05/12/17 10:44 Dose: 5,000 unit Hydrochlorothiazide (Hctz -) 25 mg PO BID [facility] Last Admin: 05/12/17 10:44 Dose: 25 mg Vancomycin HCl 1,000 mg/ (Dextrose) 250 mls @ 250 mls/hr IVPB BID@0400,1600 [facility] PRN Reason: Protocol Last Admin: 05/12/17 03:22 Dose: 250 mls/hr Insulin Aspart (Novolog Vial Sliding Scale -) 1 vial SQ ACHS [facility] PRN Reason: Protocol Last Admin: 05/12/17 10:44 Dose: 6 units Insulin Detemir (Levemir Vial) 30 units SQ BID@0700,1630 [facility] Last Admin: 05/12/17 06:14 Dose: 30 units Metformin HCl (Glucophage -) 500 mg PO BID@0700,1630 [facility] Last Admin: 05/12/17 06:18 Dose: 500 mg Metoprolol Succinate (Toprol Xl -) 25 mg PO DAILY [facility] Last Admin: 05/12/17 10:44 Dose: 25 mg Pantoprazole Sodium (Protonix -) 40 mg PO BID [facility] Last Admin: 05/12/17 10:44 Dose: 40 mg - Objective Vital Signs: Vital Signs Temperature 98.1 F 05/12/17 10:00 Pulse Rate 91 H 05/12/17 10:00 Respiratory Rate 18 05/12/17 10:00 Blood Pressure 156/87 05/12/17 10:00 O2 Sat by Pulse Oximetry (%) 100 05/11/17 21:00 Constitutional: Yes: No Distress, Calm Eyes: Yes: WNL HENT: Yes: WNL Neck: Yes: WNL Cardiovascular: Yes: Regular Rate and Rhythm Respiratory: Yes: CTA Bilaterally Gastrointestinal: Yes: Normal Bowel Sounds, Soft Genitourinary: Yes: WNL Musculoskeletal: Yes: WNL Extremities: Yes: Amputation (Lt foot toes, gangrenous toe) Wound/Incision: Yes: Clean/Dry Neurological: Yes: Alert, Oriented Psychiatric: Yes: Alert, Oriented Labs: CBC, BMP 05/12/17 06:00 05/12/17 06:00 Problem List - Problems (1) Cellulitis Code(s): L03.90 - CELLULITIS, UNSPECIFIED Qualifiers: Site of cellulitis: extremity Site of cellulitis of extremity: lower extremity Laterality: left Qualified Code(s): L03.116 - Cellulitis of left lower limb; L03.116 - Cellulitis of left lower limb (2) Diabetes Code(s): E11.9 - TYPE 2 DIABETES MELLITUS WITHOUT COMPLICATIONS Qualifiers: Diabetes mellitus type: other specified (including LASHAY) Diabetes mellitus complication status: with hyperglycemia Diabetes mellitus assistant terminal manager insulin use: unspecified assistant terminal manager insulin use status Qualified Code (s): E13.65 - Other specified diabetes mellitus with hyperglycemia; E13.65 - Other specified diabetes mellitus with hyperglycemia; E13.65 - Other specified diabetes mellitus with hyperglycemia; E13.65 - Other specified diabetes mellitus with hyperglycemia; Z79.4 - buttermilk drier operator (current) use of insulin; Z79.4 - long-term (current) use of insulin; Z79.4 - long-term (current) use of insulin ; Z79.4 - buttermilk drier operator (current) use of insulin (3) Diabetic infection of left foot Code(s): E11.69 - TYPE 2 DIABETES MELLITUS WITH OTHER SPECIFIED COMPLICATION L08.9 - LOCAL INFECTION OF THE SKIN AND SUBCUTANEOUS TISSUE, UNSP (4) Gangrene of toe of left foot Code(s): I96 - GANGRENE, NOT ELSEWHERE CLASSIFIED (5) Osteomyelitis Code(s): M86.9 - OSTEOMYELITIS, UNSPECIFIED Qualifiers: Osteomyelitis type: other acute Osteomyelitis location: foot Laterality: left Qualified Code(s): M86.172 - Other acute osteomyelitis, left ankle and foot; M86.172 - Other acute osteomyelitis, left ankle and foot; M86.172 - Other acute osteomyelitis, left ankle and foot Assessment/Plan Lt foot diabetic infection/OM s/p graft - continue Vancomycin wound care
[2017-05-12] MEDS ORDERED: PT OWN MED DRAWER 7, Y5N ONE (16:29)
--- NOTE | 2017-05-12 20:58 | PN ---
Progress Note, Physician - Current Medication List Current Medications: Active Medications Amlodipine Besylate (Norvasc -) 5 mg PO DAILY [facility] Last Admin: 05/12/17 10:44 Dose: 5 mg Aspirin (Ecotrin -) 81 mg PO DAILY [facility] Last Admin: 05/12/17 10:44 Dose: 81 mg Collagenase (Santyl -) 1 applic TP DAILY [facility] Last Admin: 05/12/17 11:29 Dose: Not Given Heparin Sodium (Porcine) (Heparin -) 5,000 unit SQ BID [facility] Last Admin: 05/12/17 10:44 Dose: 5,000 unit Hydrochlorothiazide (Hctz -) 25 mg PO BID [facility] Last Admin: 05/12/17 10:44 Dose: 25 mg Vancomycin HCl 1,000 mg/ (Dextrose) 250 mls @ 250 mls/hr IVPB BID@0400,1600 [facility] PRN Reason: Protocol Last Admin: 05/12/17 16:31 Dose: 250 mls/hr Insulin Aspart (Novolog Vial Sliding Scale -) 1 vial SQ ACHS [facility] PRN Reason: Protocol Last Admin: 05/12/17 16:35 Dose: 4 units Insulin Detemir (Levemir Vial) 30 units SQ BID@0700,1630 [facility] Last Admin: 05/12/17 16:32 Dose: 30 units Metformin HCl (Glucophage -) 500 mg PO BID@0700,1630 [facility] Last Admin: 05/12/17 16:31 Dose: 500 mg Metoprolol Succinate (Toprol Xl -) 25 mg PO DAILY [facility] Last Admin: 05/12/17 10:44 Dose: 25 mg Pantoprazole Sodium (Protonix -) 40 mg PO BID [facility] Last Admin: 05/12/17 10:44 Dose: 40 mg - Objective Vital Signs: Vital Signs Temperature 98.1 F 05/12/17 16:58 Pulse Rate 81 05/12/17 16:58 Respiratory Rate 20 05/12/17 16:58 Blood Pressure 126/74 05/12/17 16:58 O2 Sat by Pulse Oximetry (%) 100 05/12/17 09:00 Constitutional: Yes: Well Nourished Neck: Yes: WNL, Supple Cardiovascular: Yes: WNL, Regular Rate and Rhythm Respiratory: Yes: WNL, Regular, CTA Bilaterally Gastrointestinal: Yes: WNL, Normal Bowel Sounds, Soft, Abdomen, Obese Extremities: Yes: Other ((+) dressing on rt thigh and lt foot) Labs: CBC, BMP 05/12/17 06:00 05/12/17 06:00 Problem List - Problems (1) Diabetic infection of left foot Assessment/Plan: S/P skin grafting from rt thigh Cont IV vanco Will speak to ID about dc'ing IV vanco Will also need to dc pic line Plastic surgery eval about ?placement to STR in am Cont wound care Code(s): E11.69 - TYPE 2 DIABETES MELLITUS WITH OTHER SPECIFIED COMPLICATION L08.9 - LOCAL INFECTION OF THE SKIN AND SUBCUTANEOUS TISSUE, UNSP (2) Anemia Assessment/Plan: Due to chronic dz H/H stable Code(s): D64.9 - ANEMIA, UNSPECIFIED (3) CKD (chronic kidney disease) Code(s): N18.9 - CHRONIC KIDNEY DISEASE, UNSPECIFIED (4) Diabetes Assessment/Plan: Cont metformin Cont sliding scale w/ coverage Code(s): E11.9 - TYPE 2 DIABETES MELLITUS WITHOUT COMPLICATIONS Qualifiers: Diabetes mellitus type: other specified (including LASHAY) Diabetes mellitus complication status: with hyperglycemia Diabetes mellitus intermediate insulin use: unspecified intermediate insulin use status Qualified Code (s): E13.65 - Other specified diabetes mellitus with hyperglycemia; E13.65 - Other specified diabetes mellitus with hyperglycemia; E13.65 - Other specified diabetes mellitus with hyperglycemia; E13.65 - Other specified diabetes mellitus with hyperglycemia; Z79.4 - senior care (current) use of insulin; Z79.4 - joint terminal attack controller (current) use of insulin; Z79.4 - senior care (current) use of insulin ; Z79.4 - joint terminal attack controller (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
[2017-05-13] MEDS ORDERED: PT OWN MED DRAWER 7, Y5N ONE ×3 (02:37→15:23)
[2017-05-13] MEDS: VANCOMYCIN 1,000 MG in DEXTROSE 5%-WATER - 250 ML IVPB SCH ×2 (03:13→15:28)
[2017-05-13] MEDS: metFORMIN HCL 500 MG TABLET (FP) PO SCH ×2 (06:08→17:10)
[2017-05-13] MEDS: INSULIN DETEMIR 100 UNITS/ML MDV SQ SCH ×2 (06:10→17:10)
[2017-05-13] MEDS: INSULIN SLIDING SCALE (NOVOLOG) 1 VIAL SQ SCH ×4 (06:12→21:29)
[2017-05-13] MEDS: HYDROCHLOROTHIAZIDE 25 MG TABLET (FP) PO SCH ×2 (09:47→21:15)
[2017-05-13] MEDS: ASPIRIN COATED 81 MG TABLET.EC PO SCH (09:47)
[2017-05-13] MEDS: PANTOPRAZOLE 40 MG TABLET (FP) PO SCH ×2 (09:47→21:15)
[2017-05-13] MEDS: amLODIPine BESYLATE 5 MG TABLET (FP) PO SCH (09:47)
[2017-05-13] MEDS: HEPARIN NA (PORCINE) 5,000 UNITS/ML 1ML VIAL SQ SCH ×2 (09:47→21:15)
[2017-05-13] MEDS: METOPROLOL SUCCINATE 25 MG TAB.SR.24H (FP) PO SCH (09:47)
[2017-05-13] MEDS: COLLAGENASE CLOSTRIDIUM HIST. 30 GRAMS TUBE TP SCH (10:01)
[2017-05-13] MEDS ORDERED: INSULIN (NOVOLOG) ASPART 100 UNITS/ML 10ML VIAL ONE (12:07)
--- NOTE | 2017-05-13 12:54 | PN ---
Progress Note, Physician History of Present Illness: patient doing well no new issues no complaints - Current Medication List Current Medications: Active Medications Amlodipine Besylate (Norvasc -) 5 mg PO DAILY [facility] Last Admin: 05/13/17 09:47 Dose: 5 mg Aspirin (Ecotrin -) 81 mg PO DAILY [facility] Last Admin: 05/13/17 09:47 Dose: 81 mg Collagenase (Santyl -) 1 applic TP DAILY [facility] Last Admin: 05/13/17 10:01 Dose: Not Given Heparin Sodium (Porcine) (Heparin -) 5,000 unit SQ BID [facility] Last Admin: 05/13/17 09:47 Dose: 5,000 unit Hydrochlorothiazide (Hctz -) 25 mg PO BID [facility] Last Admin: 05/13/17 09:47 Dose: 25 mg Vancomycin HCl 1,000 mg/ (Dextrose) 250 mls @ 250 mls/hr IVPB BID@0400,1600 [facility] PRN Reason: Protocol Last Admin: 05/13/17 03:13 Dose: 250 mls/hr Insulin Aspart (Novolog Vial Sliding Scale -) 1 vial SQ ACHS [facility] PRN Reason: Protocol Last Admin: 05/13/17 12:03 Dose: 4 units Insulin Detemir (Levemir Vial) 30 units SQ BID@0700,1630 [facility] Last Admin: 05/13/17 06:10 Dose: 30 units Metformin HCl (Glucophage -) 500 mg PO BID@0700,1630 [facility] Last Admin: 05/13/17 06:08 Dose: 500 mg Metoprolol Succinate (Toprol Xl -) 25 mg PO DAILY [facility] Last Admin: 05/13/17 09:47 Dose: 25 mg Pantoprazole Sodium (Protonix -) 40 mg PO BID [facility] Last Admin: 05/13/17 09:47 Dose: 40 mg - Objective Vital Signs: Vital Signs Temperature 98.1 F 05/12/17 22:00 Pulse Rate 86 05/12/17 22:00 Respiratory Rate 20 05/12/17 22:00 Blood Pressure 148/73 05/12/17 22:00 O2 Sat by Pulse Oximetry (%) 100 05/12/17 09:00 Constitutional: Yes: No Distress, Calm Neck: Yes: Supple Cardiovascular: Yes: Regular Rate and Rhythm Respiratory: Yes: Regular, CTA Bilaterally Gastrointestinal: Yes: Normal Bowel Sounds, Soft Musculoskeletal: Yes: WNL Extremities: Yes: Other Integumentary: Yes: WNL Wound/Incision: Yes: Dressing Dry and Intact Neurological: Yes: Alert, Oriented Psychiatric: Yes: Alert, Oriented Labs: CBC, BMP 05/12/17 06:00 05/12/17 06:00 Assessment/Plan - Problems (1) Cellulitis Code(s): L03.90 - CELLULITIS, UNSPECIFIED Qualifiers: Site of cellulitis: extremity Site of cellulitis of extremity: lower extremity Laterality: left Qualified Code(s): L03.116 - Cellulitis of left lower limb (2) Osteomyelitis Code(s): M86.9 - OSTEOMYELITIS, UNSPECIFIED Qualifiers: Osteomyelitis location: foot Laterality: left 3 gangrene of the toes 4 skin graft plan continue vanco can stop vanco after tomorrows dose
[2017-05-13] MEDS ORDERED: INSULIN DETEMIR 100 UNITS/ML MDV SQ ONE (18:29)
--- NOTE | 2017-05-13 19:58 | PN ---
Progress Note, Physician History of Present Illness: No new complaints - Current Medication List Current Medications: Active Medications Amlodipine Besylate (Norvasc -) 5 mg PO DAILY [facility] Last Admin: 05/13/17 09:47 Dose: 5 mg Aspirin (Ecotrin -) 81 mg PO DAILY [facility] Last Admin: 05/13/17 09:47 Dose: 81 mg Collagenase (Santyl -) 1 applic TP DAILY [facility] Last Admin: 05/13/17 10:01 Dose: Not Given Heparin Sodium (Porcine) (Heparin -) 5,000 unit SQ BID [facility] Last Admin: 05/13/17 09:47 Dose: 5,000 unit Hydrochlorothiazide (Hctz -) 25 mg PO BID [facility] Last Admin: 05/13/17 09:47 Dose: 25 mg Vancomycin HCl 1,000 mg/ (Dextrose) 250 mls @ 250 mls/hr IVPB BID@0400,1600 [facility] PRN Reason: Protocol Last Admin: 05/13/17 15:28 Dose: 250 mls/hr Insulin Aspart (Novolog Vial Sliding Scale -) 1 vial SQ ACHS [facility] PRN Reason: Protocol Last Admin: 05/13/17 16:53 Dose: 6 units Insulin Detemir (Levemir Vial) 30 units SQ BID@0700,1630 [facility] Last Admin: 05/13/17 17:10 Dose: 30 units Metformin HCl (Glucophage -) 500 mg PO BID@0700,1630 [facility] Last Admin: 05/13/17 17:10 Dose: 500 mg Metoprolol Succinate (Toprol Xl -) 25 mg PO DAILY [facility] Last Admin: 05/13/17 09:47 Dose: 25 mg Pantoprazole Sodium (Protonix -) 40 mg PO BID [facility] Last Admin: 05/13/17 09:47 Dose: 40 mg - Objective Vital Signs: Vital Signs Temperature 98.4 F 05/13/17 18:00 Pulse Rate 83 05/13/17 18:00 Respiratory Rate 20 05/13/17 18:00 Blood Pressure 144/75 05/13/17 18:00 O2 Sat by Pulse Oximetry (%) 98 05/13/17 09:00 HENT: Yes: WNL Neck: Yes: WNL, Supple Cardiovascular: Yes: WNL, Regular Rate and Rhythm Respiratory: Yes: WNL, Regular, CTA Bilaterally Gastrointestinal: Yes: WNL, Normal Bowel Sounds, Soft Extremities: Yes: Other ((+) dressing rt thigh/lt foot) Labs: CBC, BMP 05/12/17 06:00 05/12/17 06:00 Problem List - Problems (1) Diabetic infection of left foot Assessment/Plan: S/P skin grafting from rt thigh dc iv vanco after am dose DC pic line ?DC pt home w/ wound care Code(s): E11.69 - TYPE 2 DIABETES MELLITUS WITH OTHER SPECIFIED COMPLICATION L08.9 - LOCAL INFECTION OF THE SKIN AND SUBCUTANEOUS TISSUE, UNSP (2) Anemia Assessment/Plan: Due to chronic dz H/H stable Code(s): D64.9 - ANEMIA, UNSPECIFIED (3) CKD (chronic kidney disease) Code(s): N18.9 - CHRONIC KIDNEY DISEASE, UNSPECIFIED (4) Diabetes Assessment/Plan: Cont metformin Cont sliding scale w/ coverage Code(s): E11.9 - TYPE 2 DIABETES MELLITUS WITHOUT COMPLICATIONS Qualifiers: Diabetes mellitus type: other specified (including LASHAY) Diabetes mellitus complication status: with hyperglycemia Diabetes mellitus assisted insulin use: unspecified assisted insulin use status Qualified Code (s): E13.65 - Other specified diabetes mellitus with hyperglycemia; E13.65 - Other specified diabetes mellitus with hyperglycemia; E13.65 - Other specified diabetes mellitus with hyperglycemia; E13.65 - Other specified diabetes mellitus with hyperglycemia; Z79.4 - terminal worker (current) use of insulin; Z79.4 - terminal worker (current) use of insulin; Z79.4 - terminal worker (current) use of insulin ; Z79.4 - senior care (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
[2017-05-14] MEDS: VANCOMYCIN 1,000 MG in DEXTROSE 5%-WATER - 250 ML IVPB SCH (03:14)
[2017-05-14] MEDS: INSULIN DETEMIR 100 UNITS/ML MDV SQ SCH (06:26)
[2017-05-14] MEDS: INSULIN SLIDING SCALE (NOVOLOG) 1 VIAL SQ SCH ×2 (06:26→12:00)
[2017-05-14] MEDS: metFORMIN HCL 500 MG TABLET (FP) PO SCH (06:26)
[2017-05-14] MEDS ORDERED: BACITRACIN 15 GM TUBE TOPICAL OINTMENT TP ONE ×2 (10:00→11:30)
--- NOTE | 2017-05-14 10:39 | PN ---
Progress Note, Physician History of Present Illness: Post Skin graft Left foot, sole, and dorsum, post Excisional debridement 2016 1 week Post surgery Selected Entries 05/14/17 06:08 Temperature 98.1 F Pulse Rate 80 Respiratory 18 Rate Blood Pressure 140/66 Blood Pressure 90 Mean Laboratory Tests 05/08/17 05/12/17 05/12/17 06:00 06:00 21:11 WBC 6.5 8.8 D Hgb 8.7 L D 10.5 L D Hct 26.7 L D 31.8 L D MCV 77.9 L 77.1 L MCH 25.3 L 25.3 L POC Glucometer 202 05/14/17 05:58 WBC Hgb Hct MCV MCH POC Glucometer 212 Dressings changed : 1. Jayant removed 2. Graft well adherent 98% pink, no erythema, miniml discharge in one area from the sole of the foot, small enough to heal with wound care 3. Needs PT ...ambulate with NWB left foot, may use walker or crutches ( Opts for walker) 4. New dressing with xeroform, Bacitracin applied 5. Donor site xeroform adherent no erythema, no discharge, no c/o pain Plan : PIC line removal Follow Up in wound clinic in 1 week on Saturday, call for apt Continue diabetic control and follow with [facility] - Current Medication List Current Medications: Active Medications Amlodipine Besylate (Norvasc -) 5 mg PO DAILY [facility] Last Admin: 05/13/17 09:47 Dose: 5 mg Aspirin (Ecotrin -) 81 mg PO DAILY [facility] Last Admin: 05/13/17 09:47 Dose: 81 mg Collagenase (Santyl -) 1 applic TP DAILY [facility] Last Admin: 05/13/17 10:01 Dose: Not Given Heparin Sodium (Porcine) (Heparin -) 5,000 unit SQ BID [facility] Last Admin: 05/13/17 21:15 Dose: 5,000 unit Hydrochlorothiazide (Hctz -) 25 mg PO BID [facility] Last Admin: 05/13/17 21:15 Dose: 25 mg Insulin Aspart (Novolog Vial Sliding Scale -) 1 vial SQ [facility] PRN Reason: Protocol Last Admin: 05/14/17 06:26 Dose: 4 units Insulin Detemir (Levemir Vial) 30 units SQ BID@0700,1630 [facility] Last Admin: 05/14/17 06:26 Dose: 30 units Metformin HCl (Glucophage -) 500 mg PO BID@0700,1630 [facility] Last Admin: 05/14/17 06:26 Dose: 500 mg Metoprolol Succinate (Toprol Xl -) 25 mg PO DAILY [facility] Last Admin: 05/13/17 09:47 Dose: 25 mg Pantoprazole Sodium (Protonix -) 40 mg PO BID [facility] Last Admin: 05/13/17 21:15 Dose: 40 mg - Objective Vital Signs: Vital Signs Temperature 98.1 F 05/14/17 06:08 Pulse Rate 80 05/14/17 06:08 Respiratory Rate 18 05/14/17 06:08 Blood Pressure 140/66 05/14/17 06:08 O2 Sat by Pulse Oximetry (%) 98 05/13/17 21:00 Labs: CBC, BMP 05/12/17 06:00 05/12/17 06:00
[2017-05-14 10:46] VITALS: TEMP 98.2
[2017-05-14] MEDS: ASPIRIN COATED 81 MG TABLET.EC PO SCH (11:04)
[2017-05-14] MEDS: amLODIPine BESYLATE 5 MG TABLET (FP) PO SCH (11:05)
[2017-05-14] MEDS: PANTOPRAZOLE 40 MG TABLET (FP) PO SCH (11:05)
[2017-05-14] MEDS: HYDROCHLOROTHIAZIDE 25 MG TABLET (FP) PO SCH (11:05)
[2017-05-14] MEDS: METOPROLOL SUCCINATE 25 MG TAB.SR.24H (FP) PO SCH (11:05)
[2017-05-14] MEDS: HEPARIN NA (PORCINE) 5,000 UNITS/ML 1ML VIAL SQ SCH (11:07)
[2017-05-14] MEDS: COLLAGENASE CLOSTRIDIUM HIST. 30 GRAMS TUBE TP SCH (11:07)
[2017-05-14 11:39] VITALS: BP 150/78; PULSE 77
[2017-05-14] MEDS ORDERED: INSULIN (NOVOLOG) ASPART 100 UNITS/ML 10ML VIAL ONE (11:56)
--- NOTE | 2017-05-14 12:44 | PN ---
Progress Note, Physician History of Present Illness: doing well no issues completed abx course - Current Medication List Current Medications: Active Medications Amlodipine Besylate (Norvasc -) 5 mg PO DAILY [facility] Last Admin: 05/14/17 11:05 Dose: 5 mg Aspirin (Ecotrin -) 81 mg PO DAILY [facility] Last Admin: 05/14/17 11:04 Dose: 81 mg Collagenase (Santyl -) 1 applic TP DAILY [facility] Last Admin: 05/14/17 11:07 Dose: Not Given Heparin Sodium (Porcine) (Heparin -) 5,000 unit SQ BID [facility] Last Admin: 05/14/17 11:07 Dose: 5,000 unit Hydrochlorothiazide (Hctz -) 25 mg PO BID [facility] Last Admin: 05/14/17 11:05 Dose: 25 mg Insulin Aspart (Novolog Vial Sliding Scale -) 1 vial SQ [facility] PRN Reason: Protocol Last Admin: 05/14/17 12:00 Dose: 4 units Insulin Detemir (Levemir Vial) 30 units SQ BID@0700,1630 [facility] Last Admin: 05/14/17 06:26 Dose: 30 units Metformin HCl (Glucophage -) 500 mg PO BID@0700,1630 [facility] Last Admin: 05/14/17 06:26 Dose: 500 mg Metoprolol Succinate (Toprol Xl -) 25 mg PO DAILY [facility] Last Admin: 05/14/17 11:05 Dose: 25 mg Pantoprazole Sodium (Protonix -) 40 mg PO BID [facility] Last Admin: 05/14/17 11:05 Dose: 40 mg - Objective Vital Signs: Vital Signs Temperature 98.2 F 05/14/17 11:38 Pulse Rate 77 05/14/17 11:38 Respiratory Rate 20 05/14/17 11:38 Blood Pressure 150/78 05/14/17 11:38 O2 Sat by Pulse Oximetry (%) 98 05/13/17 21:00 Constitutional: Yes: No Distress, Calm Cardiovascular: Yes: Regular Rate and Rhythm Respiratory: Yes: Regular, CTA Bilaterally Gastrointestinal: Yes: Normal Bowel Sounds, Soft Musculoskeletal: Yes: Other Extremities: Yes: Other Wound/Incision: Yes: Dressing Dry and Intact Neurological: Yes: Alert, Oriented Psychiatric: Yes: Alert, Oriented Labs: CBC, BMP 05/12/17 06:00 05/12/17 06:00 Assessment/Plan - Problems (1) Cellulitis Code(s): L03.90 - CELLULITIS, UNSPECIFIED Qualifiers: Site of cellulitis: extremity Site of cellulitis of extremity: lower extremity Laterality: left Qualified Code(s): L03.116 - Cellulitis of left lower limb (2) Osteomyelitis Code(s): M86.9 - OSTEOMYELITIS, UNSPECIFIED Qualifiers: Osteomyelitis location: foot Laterality: left 3 gangrene of the toes 4 skin graft plan completed the abx course will need to continue wound dressing
--- NOTE | 2017-05-26 18:03 | DS ---
Physical Examination Vital Signs: Vital Signs Temperature 98.2 F 05/14/17 11:38 Pulse Rate 77 05/14/17 11:38 Respiratory Rate 20 05/14/17 11:38 Blood Pressure 150/78 05/14/17 11:38 O2 Sat by Pulse Oximetry (%) 98 05/13/17 21:00 Labs: CBC, BMP 05/12/17 06:00 05/12/17 06:00 Discharge Summary Reason For Visit: DIABETIC FOOT WOUND Condition: Good - Instructions Diet, Activity, Other Instructions: OOB with walker no weight left foot Keep right thigh and left foot dressings dry. Wound Care appointment [facility] with Dr Borden May 22, 2017 at 10am Report any increased pain, wound drainage, or temp [address] Borden Monitor Blood sugar at home 2 gram sodium 2200 calorie ADA diet Referrals: Daksha Borden MD [Staff Physician] - Disposition: VNS/HOME HEALTH CARE - Home Medications Comprehensive Discharge Medication List: Ambulatory Orders Aspirin Coated [Ecotrin -] 81 mg PO DAILY #30 tablet.ec 04/25/16 Insulin (Levemir) [Levemir Vial] 30 units SQ BID 04/28/16 Amlodipine Besylate [Norvasc -] 5 mg PO DAILY 02/15/17 Esomeprazole Magnesium 40 mg PO BID 02/15/17 Hydrochlorothiazide [Hctz -] 25 mg PO BID 02/15/17 Metformin HCl [Glucophage -] 500 mg PO BID 02/15/17 Metoprolol Succinate [Toprol XL -] 25 mg PO DAILY 02/15/17 Collagenase Clostridium Hist. [Santyl -] 1 applic TP DAILY #60 tube 02/28/17 Pantoprazole Sodium [Protonix -] 40 mg PO BID #30 tab 05/14/17
== END 2017-05-14 14:25 | disposition home health service (06) | DRG 312 ==
LOC: EDSTATUS 11:00 → JSAMEDAYSX 05-07 10:19 → J8W 05-07 21:28
PROVIDERS: ADMIT Plastic Surgery; ATTEND Plastic Surgery
PROC: 0HRNX74 Replacement of Left Foot Skin with Autologous Tissue Substitute, Partial Thickness, External Approach (ICD-10-PCS; 2017-05-07)
PROC: 0JBR0ZZ Excision of Left Foot Subcutaneous Tissue and Fascia, Open Approach (ICD-10-PCS; principal; 2017-05-07 13:00)
DX: E13.621 Other specified diabetes mellitus with foot ulcer (principal); L03.116 Cellulitis of left lower limb; E78.5 Hyperlipidemia, unspecified; I25.10 Atherosclerotic heart disease of native coronary artery without angina pectoris; I12.9 Hypertensive chronic kidney disease with stage 1 through stage 4 chronic kidney disease, or unspecified chronic kidney disease; E11.22 Type 2 diabetes mellitus with diabetic chronic kidney disease; N18.9 Chronic kidney disease, unspecified; Z87.891 Personal history of nicotine dependence; D63.8 Anemia in other chronic diseases classified elsewhere; E11.42 Type 2 diabetes mellitus with diabetic polyneuropathy; E11.52 Type 2 diabetes mellitus with diabetic peripheral angiopathy with gangrene; I96 Gangrene, not elsewhere classified; E11.69 Type 2 diabetes mellitus with other specified complication; M86.172 Other acute osteomyelitis, left ankle and foot
CPT/HCPCS: 36415; 80053; 85025; 88304-TC; 90688; 94760; 97116-GP; 97161-GP; G0008; G0277; G0480; J1644

== ENCOUNTER 2017-08-06 13:54 | Inpatient (IN) | payer OTHER ==
--- NOTE | 2017-08-06 16:18 | PDOC ---
Attending Attestation - Resident Resident Name: Rolando Corey - ED Attending Attestation I have performed the following: I have examined & evaluated the patient, The case was reviewed & discussed with the resident, I agree w/resident's findings & plan, Exceptions are as noted - HPI HPI: 08/06/17 16:14 56y M hx of DM, presetns with increase redness/sswelling to RLE, +wound dorsum of L foot, no active discharge but diffusel tender, entire leg is warm/red suspect celluitis, consider posible dvt will start abx dvt study anticipate admission - Physicial Exam PE: 08/07/17 11:32 se eabove - Medical Decision Making 08/06/17 18:17 pts K eelvated to 6 Cr normal awaiting EKG unclear if this is real - but will give pt a dose of lasix - conscern that if ekg i snormal and K is supriously high, may cause hypokalemia will obtain EKG - if abnormal, widened intervals will treat as hyper K with hyper K coctail if EKG wnl - will give lasix and wait for repeat K but anticipating admission for treatment of celllultis 08/06/17 18:20 duplex US noted for mass in pop fossa with minimal flow that is new - will need workup for this Heart Score/ECG Review - ECG Impressions Comment:: 08/07/17 11:40 Twelve-lead EKG was performed and reviewed by me. There is normal sinus rhythm with Rate of 108 The axis is normal. The intervals are normal. There is normal R wave progression nonspecific T wave abnormality
[2017-08-06] MEDS ORDERED: VANCOMYCIN 1,500 MG in DEXTROSE 5%-WATER - 500 ML IVPB ONE (16:29)
[2017-08-06] MEDS ORDERED: PIPERACILLIN/TAZOB 4.5 GM 4.5 GM/100 ML BAG IVPB ONE ×2 (16:29→16:44)
--- NOTE | 2017-08-06 16:31 | PDOC ---
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 The patient is being treated at Wound care weekly. He went today and was told that upon this newfound infected he should go to the ED. The patient is followed by Dr. Arsh López at wound care. The patient denies chest pain, shortness of breath, headache and dizziness. Denies fever, chills, nausea, vomit, diarrhea and constipation. Denies dysuria, frequency, urgency and hematuria. Past History - Past Medical History Allergies/Adverse Reactions: Allergies Allergy/AdvReac Type Severity Reaction Status Date / Time No Known Allergies Allergy Verified 08/06/17 13:56 Home Medications: Ambulatory Orders Aspirin Coated [Ecotrin -] 81 mg PO DAILY #30 tablet.ec 04/25/16 Insulin (Levemir) [Levemir Vial] 30 units SQ BID 04/28/16 Amlodipine Besylate [Norvasc -] 5 mg PO DAILY 02/15/17 Esomeprazole Magnesium 40 mg PO BID 02/15/17 Hydrochlorothiazide [Hctz -] 25 mg PO BID 02/15/17 Metformin HCl [Glucophage -] 500 mg PO BID 02/15/17 Metoprolol Succinate [Toprol XL -] 25 mg PO DAILY 02/15/17 Pantoprazole Sodium [Protonix -] 40 mg PO BID #30 tab 05/14/17 Anemia: No Asthma: No Cancer: No Cardiac Disorders: Yes CVA: No COPD: No CHF: No Dementia: No Diabetes: Yes (iddm) GI Disorders: Yes (HX.ULCER) Disorders: No HTN: Yes Hypercholesterolemia: Yes Liver Disease: No Seizures: No Thyroid Disease: No - Surgical History Abdominal Surgery: Yes (LEFT INGUINAL HERNIA REPAIR) Appendectomy: No Cardiac Surgery: No Cholecystectomy: No Lung Surgery: No Neurologic Surgery: No Orthopedic Surgery: Yes (right foot surgery, left 5th ray resection) - Suicide/Smoking/Psychosocial Hx Smoking History: Never smoked Have you smoked in the past 12 months: No If you are a former smoker, when did you quit?: 1976 Information on smoking cessation initiated: No Hx Alcohol Use: No Drug/Substance Use Hx: No Substance Use Type: None Hx Substance Use Treatment: No Review of Systems - Review of Systems Able to Perform ROS?: Yes Constitutional: No: Symptoms Reported, Chills, Diaphoresis, Fever HEENTM: No: Symptoms Reported Respiratory: No: Symptoms reported Cardiac (ROS): No: Symptoms Reported, Chest Tightness : No: Symptoms Reported Musculoskeletal: No: Symptoms Reported Integumentary: Yes: See HPI Neurological: No: Symptoms reported Psychiatric: No: Depression Endocrine: No: Symptoms Reported Hematologic/Lymphatic: No: Symptoms Reported All Other Systems: Reviewed and Negative *Physical Exam - Vital Signs Last Vital Signs Temp Pulse Resp BP Pulse Ox 98.7 F 107 H 16 133/76 100 08/06/17 13:56 08/06/17 13:56 08/06/17 13:56 08/06/17 13:56 08/06/17 13:56 - Physical Exam General Appearance: Yes: Nourished, Appropriately Dressed, Apparent Distress, Obese HEENT: positive: EOMI, JOSSELYN, Normal ENT Inspection Neck: positive: Trachea midline. negative: Tender Respiratory/Chest: positive: Lungs Clear, Normal Breath Sounds. negative: Chest Tender Cardiovascular: positive: Regular Rhythm, S1, S2, Tachycardia Vascular Pulses: Dorsalis-Pedis (R): 2+, Doralis-Pedis (L): 2+ Gastrointestinal/Abdominal: positive: Normal Bowel Sounds, Soft, Protuberent. negative: Tender Extremity: positive: Other (ft dorsal foot with 4-5cm circular lesion, non- necrotic but purulent, tender with induration and pronounced warmth of the entire leg compared to the Right one. ) Progress Note - Progress Note Progress Note: 56m with chronic left foot wound present with new dorsal foot wound and left leg cellulitis. Basic labs, vanc-zosyn and venous duplex of left leg. Patient admitted to Dr. Oh on med surg. *DC/Admit/Observation/Transfer Diagnosis at time of Disposition: Diabetic infection of left foot, Cellulitis - Discharge Dispostion Admit: Yes - Referrals Referrals: Gal Becerra MD [Primary Care Provider] - - Patient Instructions - Post Discharge Activity
[2017-08-06 17:17] LABS: BASO % 0.8 % (0-2.0); EOS % 0.8 % (0-4.5); HEMATOCRIT 23.5 % (35.4-49); HEMOGLOBIN 7.3 GM/dL (11.7-16.9); LYMPH % 12.4 % (8-40); MCH 22.3 pg (25.7-33.7); MCHC 31.2 g/dl (32.0-35.9); MEAN CELL VOLUME 71.6 fl (80-96); MEAN PLT VOLUME 7.9 fl (7.5-11.1); MONO % 4.8 % (3.8-10.2); NEUT % 81.2 % (42.8-82.8); PLATELET COUNT 738 K/MM3 (134-434); RBC 3.28 M/mm3 (4.00-5.60); RDW 16.4 % (11.9-15.9); WHITE BLOOD COUNT 13.6 K/mm3 (4.0-10.0)
[2017-08-06 17:19] LABS: URINE APPEARANCE CLEAR; URINE BILIRUBIN NEGATIVE (NEGATIVE); URINE BLOOD 1+ (NEGATIVE); URINE COLOR LTYELLOW; URINE GLUCOSE (UA) 3+ (NEGATIVE); URINE KETONE NEGATIVE (NEGATIVE); URINE LEUK ESTERASE NEGATIVE (NEGATIVE); URINE NITRITE NEGATIVE (NEGATIVE); URINE PROTEIN NEGATIVE (NEGATIVE); URINE UROBILINOGEN NEGATIVE mg/dL (0.2-1.0)
[2017-08-06 17:22] LABS: URINE MUCUS RARE
[2017-08-06 17:42] LABS: ALBUMIN 1.9 g/dl (3.4-5.0); ALK PHOS 171 U/L (45-117); ANION GAP 9 (8-16); BILIRUBIN,TOTAL 0.3 mg/dL (0.2-1.0); BLOOD UREA NITROGEN 18 mg/dL (7-18); CALCIUM 8.2 mg/dL (8.5-10.1); CHLORIDE 91 mmol/L (98-107); CO2 28 mmol/L (21-32); CREATININE 1.1 mg/dL (0.7-1.3); SGPT/ALT 16 U/L (12-78); SODIUM 128 mmol/L (136-145); TOT PROT 7.3 g/dl (6.4-8.2)
[2017-08-06 17:45] LABS: GLUCOSE,RANDOM 400 mg/dL (74-106)
[2017-08-06 17:46] LABS: SGOT/AST 41 U/L (15-37)
[2017-08-06] MEDS ORDERED: SODIUM CHLORIDE 500 ML IV STA (18:22)
[2017-08-06] MEDS ORDERED: ACETAMINOPHEN 325 MG TABLET (FP) PO ONE (18:22)
[2017-08-06] MEDS ORDERED: ACETAMINOPHEN 325 MG TABLET (FP) ONE (18:24)
[2017-08-06 18:58] LABS: CHLORIDE 92 mmol/L (98-107); POTASSIUM 4.6 mmol/L (3.5-5.1); SODIUM 131 mmol/L (136-145)
[2017-08-06 19:05] LABS: ALBUMIN 2.2 g/dl (3.4-5.0); ALK PHOS 180 U/L (45-117); ANION GAP 11 (8-16); BILIRUBIN,TOTAL 0.3 mg/dL (0.2-1.0); BLOOD UREA NITROGEN 16 mg/dL (7-18); CALCIUM 8.5 mg/dL (8.5-10.1); CO2 28 mmol/L (21-32); SGOT/AST 11 U/L (15-37); SGPT/ALT 15 U/L (12-78); TOT PROT 7.7 g/dl (6.4-8.2)
[2017-08-06 19:22] LABS: GLUCOSE,RANDOM 378 mg/dL (74-106)
[2017-08-06] MEDS ORDERED: INSULIN (NOVOLOG) ASPART 100 UNITS/ML 10ML VIAL ONE (21:47)
[2017-08-06] MEDS ORDERED: Insulin (LOG) Aspart 100 UNITS/ML VIAL SQ ONE (22:21)
[2017-08-07] MEDS ORDERED: traMADol HCL 50 MG TABLET PO PRN (00:58)
[2017-08-07] MEDS ORDERED: ACETAMINOPHEN 325 MG TABLET (FP) PO PRN ×2 (00:59→16:20)
[2017-08-07] MEDS ORDERED: PIPERACILLIN/TAZOB 3.375 GM 50 ML IVPB ONE (02:00)
[2017-08-07] MEDS ORDERED: PIPERACILLIN/TAZOB 3.375 GM 50 ML IVPB SCH (02:00)
[2017-08-07 06:46] VITALS: BMI 40.4
[2017-08-07] MEDS: INSULIN SLIDING SCALE (NOVOLOG) 1 VIAL SQ SCH ×4 (06:49→22:32)
[2017-08-07] MEDS ORDERED: metFORMIN HCL 500 MG TABLET (FP) PO SCH (07:00)
[2017-08-07] MEDS ORDERED: INSULIN DETEMIR 100 UNITS/ML MDV SQ SCH (07:00)
[2017-08-07] MEDS ORDERED: PT OWN MED DRAWER 7, Y5N ONE ×2 (08:48→11:54)
[2017-08-07] MEDS ORDERED: VANCOMYCIN 1,000 MG in DEXTROSE 5%-WATER - 250 ML IVPB ONE (09:00)
[2017-08-07 09:14] LABS: BASO % 0.4 % (0-2.0); EOS % 0.7 % (0-4.5); HEMATOCRIT 22.3 % (35.4-49); LYMPH % 13.3 % (8-40); MCH 21.9 pg (25.7-33.7); MCHC 31.3 g/dl (32.0-35.9); MEAN PLT VOLUME 7.7 fl (7.5-11.1); MONO % 6.2 % (3.8-10.2); NEUT % 79.4 % (42.8-82.8); PLATELET COUNT 707 K/MM3 (134-434); RBC 3.19 M/mm3 (4.00-5.60); RDW 16.2 % (11.9-15.9); WHITE BLOOD COUNT 11.4 K/mm3 (4.0-10.0)
[2017-08-07 09:18] LABS: ALBUMIN 1.9 g/dl (3.4-5.0); ANION GAP 12 (8-16); BLOOD UREA NITROGEN 9 mg/dL (7-18); CALCIUM 8.6 mg/dL (8.5-10.1); CHLORIDE 92 mmol/L (98-107); CO2 29 mmol/L (21-32); GLUCOSE,RANDOM 230 mg/dL (74-106); POTASSIUM 3.9 mmol/L (3.5-5.1); SGOT/AST 8 U/L (15-37); SODIUM 133 mmol/L (136-145)
[2017-08-07 09:21] LABS: ALK PHOS 187 U/L (45-117); BILIRUBIN,TOTAL 0.4 mg/dL (0.2-1.0); CREATININE 0.8 mg/dL (0.7-1.3); SGPT/ALT 12 U/L (12-78); TOT PROT 6.7 g/dl (6.4-8.2)
[2017-08-07 09:22] LABS: ADD RBC MORPHOLOGY YES
[2017-08-07] MEDS ORDERED: HEPARIN NA (PORCINE) 5,000 UNITS/ML 1ML VIAL SQ SCH (10:00)
[2017-08-07] MEDS ORDERED: VANCOMYCIN 1,000 MG in DEXTROSE 5%-WATER - 250 ML IVPB SCH (10:00)
[2017-08-07] MEDS ORDERED: METOPROLOL SUCCINATE 25 MG TAB.SR.24H (FP) PO SCH (10:00)
[2017-08-07] MEDS ORDERED: amLODIPine BESYLATE 5 MG TABLET (FP) PO SCH (10:00)
[2017-08-07] MEDS ORDERED: ASPIRIN COATED 81 MG TABLET.EC PO SCH (10:00)
[2017-08-07] MEDS ORDERED: HYDROCHLOROTHIAZIDE 25 MG TABLET (FP) PO SCH (10:00)
--- NOTE | 2017-08-07 10:04 | CONSULT ---
- Consultation REQUESTING PROVIDER: Arsh López - Wound Care / Vascular Surgery CONSULT REQUEST: We have been asked to surgically evaluate this patient for chronic left foot wound PCP: Theresa Oh HPI: Called to abiola 56 yo male with PMHx noted below. Comes to [facility] ED w/ c/o pain to left foot 05/21 x1 week. He is followed at [facility] weekly. Patient states he is followed by [facility]/Jde Developer. Denies n/v/f/c, CP, SOB, PARKER, RETANA PMHx: HTN, HLD, Gastric Ulcer, IDDM, Renal Inusuff, LLE osteo 2014, Peripheral Neuropathy PSHx: Left Inguinal Hernia repair, Partial left 4th/5th toe amp Home Meds: Aspirin Coated [Ecotrin -] 81 mg PO DAILY #30 tablet.ec 04/25/16 Insulin (Levemir) [Levemir Vial] 30 units SQ BID 04/28/16 Amlodipine Besylate [Norvasc -] 5 mg PO DAILY 02/15/17 Esomeprazole Magnesium 40 mg PO BID 02/15/17 Hydrochlorothiazide [Hctz -] 25 mg PO BID 02/15/17 Metformin HCl [Glucophage -] 500 mg PO BID 02/15/17 Metoprolol Succinate [Toprol XL -] 25 mg PO DAILY 02/15/17 Pantoprazole Sodium [Protonix -] 40 mg PO BID #30 tab 05/14/17 Allergies: NKDA ROS: All systems reviewed and considered negative except for what's contained in HPI. PE: GENERAL: alert. nad. LE: RLE unremarkable. LLE: erythematous, purulent drainage expressed from open wound to dorsum of foot. Indurated. TTP. + swelling. DP intact. Hard to assess PT. PSYCH: Cooperative. Good eye contact. Appropriate mood and affect. Last Vital Signs Temp Pulse Resp BP Pulse Ox 99.8 F H 2 L 104 H 131/75 93 L 08/07/17 02:00 08/07/17 02:00 08/07/17 02:00 08/07/17 02:00 08/06/17 23:30 CBC, BMP 08/07/17 07:10 08/07/17 07:10 Problem List - Problems (1) Diabetic infection of left foot Assessment/Plan: Consult placed to [facility] Chew/Jde Developer for surgical decompression/debridement IV ABX Type and screen, Coags ordered Medical optimization / clearance Above plan discussed with Dr. López and agrees Code(s): E11.69 - TYPE 2 DIABETES MELLITUS WITH OTHER SPECIFIED COMPLICATION; L08.9 - LOCAL INFECTION OF THE SKIN AND SUBCUTANEOUS TISSUE, UNSP Visit type - Case Type Case Type: ED Admission - Emergency Emergency Visit: Yes ED Registration Date: 08/06/17 Care time: The patient presented to the Emergency Department on the above date and was hospitalized for further evaluation of their emergent condition. - New patient This patient is new to me today: Yes Date on this admission: 08/07/17
[2017-08-07] MEDS ORDERED: FLU VACCINE QUAD 60 MCG/0.5 ML (MDV 17-18) IM ONE (10:30)
[2017-08-07] MEDS ORDERED: PIPERACILLIN/TAZOB 3.375 GM 3.375 GM in DEXTROSE 5%-WATER - 100 ML IVPB ONE (12:30)
[2017-08-07 13:09] LABS: ANISOCYTOSIS 3+; MACROCYTOSIS 0; PLATELET ESTIMATE INCREASED
--- NOTE | 2017-08-07 13:22 | EKG ---
Test Reason : Blood Pressure : / mmHG Vent. Rate : 108 BPM Atrial Rate : 108 BPM P-R Int : 142 ms QRS Dur : 066 ms QT Int : 324 ms P-R-T Axes : 060 064 083 degrees QTc Int : 434 ms POOR DATA QUALITY, INTERPRETATION MAY BE ADVERSELY AFFECTED SINUS TACHYCARDIA NONSPECIFIC T WAVE ABNORMALITY ABNORMAL ECG WHEN COMPARED WITH ECG OF 08-APR-2017 14:43, NO SIGNIFICANT CHANGE WAS FOUND Confirmed by BRIAN DOTSON MD ([id number]) on 08/07/2017 1:21:33 PM Referred By: Confirmed By:BRIAN DOTSON MD
--- NOTE | 2017-08-07 13:58 | HP ---
Admitting History and Physical - Admission Chief Complaint: left foot abscess. Came to wound care clinic with pus and fevers. Limitations to Obtaining History: No Limitations - Past Medical History BUSGIRL: Yes: Peripheral Neuropathy Cardiovascular: Yes: HTN, Hyperlipdemia Renal/: Yes: Renal Inusuff Infectious Disease: Yes: Other (LLE osteo on MRI here 06/2015) Endocrine: Yes: Diabetes Mellitus (on Victoza) - Past Surgical History Past Surgical History: Yes: Hernia Repair (left inguinal) - Smoking History Smoking history: Former smoker Have you smoked in the past 12 months: No If you are a former smoker, when did you quit?: 1976 - Alcohol/Substance Use Hx Alcohol Use: No History of Substance Use: reports: None - Social History ADL: Independent History of Recent Travel: No Home Medications - Allergies Allergies/Adverse Reactions: Allergies Allergy/AdvReac Type Severity Reaction Status Date / Time No Known Allergies Allergy Verified 08/06/17 13:56 - Home Medications Home Medications: Ambulatory Orders Aspirin Coated [Ecotrin -] 81 mg PO DAILY #30 tablet.ec 04/25/16 Insulin (Levemir) [Levemir Vial] 30 units SQ BID 04/28/16 Amlodipine Besylate [Norvasc -] 5 mg PO DAILY 02/15/17 Esomeprazole Magnesium 40 mg PO BID 02/15/17 Hydrochlorothiazide [Hctz -] 25 mg PO BID 02/15/17 Metformin HCl [Glucophage -] 500 mg PO BID 02/15/17 Metoprolol Succinate [Toprol XL -] 25 mg PO DAILY 02/15/17 Pantoprazole Sodium [Protonix -] 40 mg PO BID #30 tab 05/14/17 Review of Systems - Review of Systems Constitutional: reports: No Symptoms Eyes: reports: No Symptoms HENT: reports: No Symptoms Neck: reports: No Symptoms Cardiovascular: reports: No Symptoms Respiratory: reports: No Symptoms Gastrointestinal: reports: No Symptoms Genitourinary: reports: No Symptoms Breasts: reports: No Symptoms Reported Musculoskeletal: reports: No Symptoms Integumentary: reports: No Symptoms Neurological: reports: No Symptoms Endocrine: reports: No Symptoms Hematology/Lymphatic: reports: No Symptoms Psychiatric: reports: No Symptoms Physical Examination Vital Signs: Vital Signs Temperature 99.8 F H 08/07/17 02:00 Pulse Rate 2 L 08/07/17 02:00 Respiratory Rate 104 H 08/07/17 09:00 Blood Pressure 131/75 08/07/17 02:00 O2 Sat by Pulse Oximetry (%) 93 L 08/07/17 09:00 Constitutional: Yes: Well Nourished Eyes: Yes: WNL HENT: Yes: WNL Neck: Yes: WNL Cardiovascular: Yes: WNL Respiratory: Yes: WNL Gastrointestinal: Yes: WNL ...Rectal Exam: Yes: WNL Renal/: Yes: WNL Musculoskeletal: Yes: WNL Extremities: Yes: WNL Edema: Yes Peripheral Pulses WNL: Yes Integumentary: Yes: WNL Labs: CBC, BMP 08/07/17 07:10 08/07/17 07:10 Problem List - Problems (1) Diabetic infection of left foot Code(s): E11.69 - TYPE 2 DIABETES MELLITUS WITH OTHER SPECIFIED COMPLICATION; L08.9 - LOCAL INFECTION OF THE SKIN AND SUBCUTANEOUS TISSUE, UNSP (2) Diabetes Code(s): E11.9 - TYPE 2 DIABETES MELLITUS WITHOUT COMPLICATIONS Qualifiers: Diabetes mellitus type: other specified (including LASHAY) Diabetes mellitus complication status: with hyperglycemia Diabetes mellitus intermediate frame tender insulin use: unspecified intermediate frame tender insulin use status Qualified Code(s): E13.65 - Other specified diabetes mellitus with hyperglycemia (3) Failed skin graft Code(s): T86.821 - SKIN GRAFT (ALLOGRAFT) (AUTOGRAFT) FAILURE Assessment/Plan left foot abscess 1. for drainage today.
[2017-08-07] MEDS ORDERED: LIDOCAINE HCL 1%, 10 MG/ML (20ML VIAL) NR ONE (14:26)
--- NOTE | 2017-08-07 14:28 | PN ---
Progress Note, Physician History of Present Illness: Pt is a 56 y/o male with PMH significant for HTN, HLD, IDDM, CKD, osteomyelitis , diabetic foot, periheral neuropathy, gastric ulcer, GERD. Patient presented to the ER with pain to the left foot for more than one week. Patient is followed at wound care. In the ER patient was found to be febrile with a slightly elevated white blood cell count. Patient was found to have erythema and warmth of his left lower extremity. Pt is to go to OR now for debridement of Lt foot abscess. - Current Medication List Current Medications: Active Medications Acetaminophen (Tylenol -) 650 mg PO Q6H PRN PRN Reason: FEVER OR PAIN Last Admin: 08/07/17 01:18 Dose: 650 mg Amlodipine Besylate (Norvasc -) 5 mg PO DAILY [facility] Last Admin: 08/07/17 09:37 Dose: 5 mg Aspirin (Ecotrin -) 81 mg PO DAILY [facility] Last Admin: 08/07/17 09:37 Dose: 81 mg Heparin Sodium (Porcine) (Heparin -) 5,000 unit SQ BID [facility] Last Admin: 08/07/17 09:37 Dose: 5,000 unit Hydrochlorothiazide (Hctz -) 25 mg PO BID [facility] Last Admin: 08/07/17 09:37 Dose: 25 mg Vancomycin HCl 1,000 mg/ (Dextrose) 250 mls @ 250 mls/hr IVPB BID [facility] PRN Reason: Protocol Piperacillin/Tazobactam/Dextrose (Zosyn 3.375gm Ivpb (Premix)) 50 mls @ 100 mls /hr IVPB Q8H-IV [facility] PRN Reason: Protocol Insulin Aspart (Novolog Vial Sliding Scale -) 1 vial SQ ACHS [facility] PRN Reason: Protocol Last Admin: 08/07/17 12:30 Dose: 4 units Insulin Detemir (Levemir Vial) 30 units SQ BID@0700,2200 [facility] Last Admin: 08/07/17 06:48 Dose: 30 units Metformin HCl (Glucophage -) 500 mg PO BIDAC [facility] Last Admin: 08/07/17 06:50 Dose: 500 mg Metoprolol Succinate (Toprol Xl -) 25 mg PO DAILY [facility] Last Admin: 08/07/17 09:37 Dose: 25 mg Tramadol HCl (Ultram -) 50 mg PO Q8H PRN PRN Reason: PAIN Last Admin: 08/07/17 07:03 Dose: 50 mg - Objective Vital Signs: Vital Signs Temperature 99.8 F H 08/07/17 02:00 Pulse Rate 2 L 08/07/17 02:00 Respiratory Rate 104 H 08/07/17 09:00 Blood Pressure 131/75 08/07/17 02:00 O2 Sat by Pulse Oximetry (%) 93 L 08/07/17 09:00 Constitutional: Yes: Well Nourished, Obese HENT: Yes: WNL Neck: Yes: WNL, Supple Cardiovascular: Yes: WNL, Regular Rate and Rhythm Respiratory: Yes: WNL, Regular, CTA Bilaterally Gastrointestinal: Yes: WNL, Normal Bowel Sounds, Soft, Abdomen, Obese Extremities: Yes: Other ((+) erythwema of LLE w/ open lesion on dorsum of lt foot S/P amputation LT 4th and 5th toes) Edema: Yes Edema: LLE: Trace, RLE: Trace Neurological: Yes: WNL, Alert, Oriented ...Motor Strength: WNL Labs: CBC, BMP 08/07/17 07:10 08/07/17 07:10 Problem List - Problems (1) Diabetic infection of left foot Assessment/Plan: At this time there is no medical contraindication for pt to undergo surgical procedure Cont IV antibxs Follow cultures ID/Vasc consults Code(s): E11.69 - TYPE 2 DIABETES MELLITUS WITH OTHER SPECIFIED COMPLICATION; L08.9 - LOCAL INFECTION OF THE SKIN AND SUBCUTANEOUS TISSUE, UNSP (2) Cellulitis Assessment/Plan: Cont IV antibxs Follow cultures Wound care Code(s): L03.90 - CELLULITIS, UNSPECIFIED Qualifiers: (3) Anemia Assessment/Plan: Multifactorial Due to chronic dz Monitor H/H Code(s): D64.9 - ANEMIA, UNSPECIFIED (4) Diabetes Assessment/Plan: Cont levemir/sliding scale w/ coverage Code(s): E11.9 - TYPE 2 DIABETES MELLITUS WITHOUT COMPLICATIONS Qualifiers: Diabetes mellitus type: other specified (including LASHAY) Diabetes mellitus complication status: with hyperglycemia Diabetes mellitus head cleaning porter insulin use: unspecified usp insulin use status Qualified Code(s): E13.65 - Other specified diabetes mellitus with hyperglycemia (5) CKD (chronic kidney disease) Code(s): N18.9 - CHRONIC KIDNEY DISEASE, UNSPECIFIED (6) HTN (hypertension) Code(s): I10 - ESSENTIAL (PRIMARY) HYPERTENSION (7) Peripheral neuropathy Code(s): G62.9 - POLYNEUROPATHY, UNSPECIFIED
[2017-08-07] MEDS ORDERED: morphine CARPU-JECT 4 MG/1 ML DISP.SYRIN IVPUSH ONE (14:47)
[2017-08-07] MEDS ORDERED: morphine CARPU-JECT 2 MG/1 ML DISP.SYRIN IVPUSH PRN (14:48)
--- NOTE | 2017-08-07 14:52 | OP ---
Operative Note - Note: Operative Date: 08/07/17 Pre-Operative Diagnosis: left foot abscess Operation: I&D of left foot abscess Findings: pus found Cx taken Post-Operative Diagnosis: Same as Pre-op Surgeon: Arsh López Anesthesia: Fractional Estimated Blood Loss (mls): 30 Operative Report Dictated: Yes
[2017-08-07] MEDS ORDERED: HYDROmorphone HCL CARPU-JECT 2 MG/1 ML DISP.SYRIN IVPUSH ONE (15:03)
[2017-08-07] MEDS ORDERED: HYDROmorphone HCL CARPU-JECT 2 MG/1 ML DISP.SYRIN IVPB PRN (15:05)
[2017-08-07] MEDS ORDERED: HYDROmorphone HCL CARPU-JECT 2 MG/1 ML DISP.SYRIN IVPB ONE (15:15)
--- NOTE | 2017-08-07 15:27 | CON.ID ---
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 He went today and was told that upon this newfound infected he should go to the ED. patient was seen by vascular and taken to the operating room for surgery and the abscess was drained according to the patient he was running fever and patient was noticing abscess leaking - History Source History Provided By: Patient Limitations to Obtaining History: No Limitations - Past Medical History MEDIA SERVICES DIRECTOR: Yes: Peripheral Neuropathy Cardio/Vascular: Yes: HTN, Hyperlipdemia Renal/: Yes: Renal Inusuff Infectious Disease: Yes: Other (LLE osteo on MRI here 06/2015) Endocrine: Yes: Diabetes Mellitus (on Victoza) - Past Surgical History Past Surgical History: Yes: Hernia Repair (left inguinal) - Alcohol/Substance Use Hx Alcohol Use: No History of Substance Use: reports: None - Smoking History Smoking history: Former smoker Have you smoked in the past 12 months: No If you are a former smoker, when did you quit?: 1976 - Social History ADL: Independent History of Recent Travel: No Home Medications - Allergies Allergies/Adverse Reactions: Allergies Allergy/AdvReac Type Severity Reaction Status Date / Time No Known Allergies Allergy Verified 08/06/17 13:56 - Home Medications Home Medications: Ambulatory Orders Aspirin Coated [Ecotrin -] 81 mg PO DAILY #30 tablet.ec 04/25/16 Insulin (Levemir) [Levemir Vial] 30 units SQ BID 04/28/16 Amlodipine Besylate [Norvasc -] 5 mg PO DAILY 02/15/17 Esomeprazole Magnesium 40 mg PO BID 02/15/17 Hydrochlorothiazide [Hctz -] 25 mg PO BID 02/15/17 Metformin HCl [Glucophage -] 500 mg PO BID 02/15/17 Metoprolol Succinate [Toprol XL -] 25 mg PO DAILY 02/15/17 Pantoprazole Sodium [Protonix -] 40 mg PO BID #30 tab 05/14/17 Review of Systems - Review of Systems Constitutional: reports: Fever Eyes: reports: No Symptoms HENT: reports: No Symptoms Neck: reports: No Symptoms Cardiovascular: reports: No Symptoms Respiratory: reports: No Symptoms Gastrointestinal: reports: No Symptoms Genitourinary: reports: No Symptoms Musculoskeletal: reports: Extremity Pain, Muscle Pain, Other Integumentary: reports: Wound Neurological: reports: No Symptoms Endocrine: reports: No Symptoms Hematology/Lymphatic: reports: No Symptoms Psychiatric: reports: No Symptoms Physical Exam Vital Signs: Vital Signs Temperature 99.8 F H 08/07/17 02:00 Pulse Rate 96 H 08/07/17 14:40 Respiratory Rate 18 08/07/17 14:40 Blood Pressure 111/92 08/07/17 14:40 O2 Sat by Pulse Oximetry (%) 96 08/07/17 14:40 Constitutional: Yes: Well Nourished, Obese Eyes: Yes: Conjunctiva Clear HENT: Yes: Atraumatic Neck: Yes: Supple, Trachea Midline Cardiovascular: Yes: Regular Rate and Rhythm Respiratory: Yes: Regular, CTA Bilaterally Gastrointestinal: Yes: Normal Bowel Sounds, Soft Musculoskeletal: Yes: WNL Extremities: Yes: WNL Integumentary: Yes: Other Wound/Incision: Yes: Dressing Dry and Intact Neurological: Yes: Alert, Oriented Psychiatric: Yes: Alert, Oriented Labs: CBC, BMP 08/07/17 07:10 08/07/17 07:10 Imaging - Results Chest X-ray: Report Reviewed, Image Reviewed Assessment/Plan Problem List - Problems (1) Diabetic infection of left foot Code(s): E11.69 - TYPE 2 DIABETES MELLITUS WITH OTHER SPECIFIED COMPLICATION; L08.9 - LOCAL INFECTION OF THE SKIN AND SUBCUTANEOUS TISSUE, UNSP (2) Diabetes Code(s): E11.9 - TYPE 2 DIABETES MELLITUS WITHOUT COMPLICATIONS Qualifiers: Diabetes mellitus type: other specified (including LASHAY) Diabetes mellitus complication status: with hyperglycemia Diabetes mellitus jail insulin use: unspecified jail insulin use status Qualified Code(s): E13.65 - Other specified diabetes mellitus with hyperglycemia (3) Failed skin graft Code(s): T86.821 - SKIN GRAFT (ALLOGRAFT) (AUTOGRAFT) FAILURE 4 left foot abscess plan will start patient on iv abx await for cx reports wound care in [address] or mri of the leg to see if he has a deeper infection
--- NOTE | 2017-08-07 15:59 | PN ---
Progress Note (short form) - Note Progress Note: Spoke with Dr López, I will see nickie on Saturday08/09/2017
[2017-08-07] MEDS: metFORMIN HCL 500 MG TABLET (FP) PO SCH (17:22)
--- NOTE | 2017-08-07 17:23 | OP ---
DATE OF OPERATION: 08/07/2017 PREOPERATIVE DIAGNOSIS: Left foot abscess. POSTOPERATIVE DIAGNOSIS: Left foot abscess. PROCEDURE: Incision and drainage, left foot. FINDINGS: Pus found, cultures taken and sent to Pathology. SURGEON: Arsh Weiss DO ANESTHESIA: Local. BLOOD LOSS: 30 mL. The patient is a 56-year-old male who came to the [facility] yesterday and he was found to have pus in his left foot. He was sent down by the nurses for admission. His ingot car operator was consulted, who takes care of him on a normal basis, but the ingot car operator is away and Vascular Surgery was consulted for incision and drainage of the left foot. Upon examination of the left foot, upon palpation, there was pus draining from his dorsum of his foot. It was decided that he would need to go to the operating room to have it cleaned up. The patient was consented for the procedure, understanding all risks, benefits, and alternatives. He was then taken to the operating room. Due to the fact that the patient had a meal, had a full breakfast, Anesthesia could not give him any major sedation, and thus it was decided that we would do the case under local. The patient was administered 60 mL of lidocaine 1% into the left foot around the abscess. We then went ahead and used a number 15 blade and extended the incision that was already open to about 7 cm. We then went ahead and did a finger sweep and all the pus was drained. We then used a pulse metallurgical inspector and we irrigated the area copiously. Above the heel, near the ankle, patient was having significant pain upon putting in the needle to give him more lidocaine. There we found that there was more pus draining from there and we went ahead and took a number 15 blade and made a 4-cm incision. Upon making the incision, there was minimal pus found, but the area was decompressed. At this point, we took 1-inch iodoform packing and packed it into the main wound, and 4 x 4's, ABD pads, Kerlix, and Heber bandage was placed. Patient tolerated the procedure with no complication and was transferred to PACU and then up to his room. Patient was administered 60 mL of lidocaine 1% for anesthesia, and the patient was ordered 2 mg of morphine right away after the procedure so that his pain could subside, and the patient was taken back up to his room. ARSH WEISS DO GLUE DRIER OPERATOR/[id number]
[2017-08-07] MEDS: PIPERACILLIN/TAZOB 3.375 GM 3.375 GM in DEXTROSE 5%-WATER - 100 ML IVPB SCH (17:55)
[2017-08-07] MEDS: traMADol HCL 50 MG TABLET PO PRN (22:28)
[2017-08-07] MEDS: HYDROCHLOROTHIAZIDE 25 MG TABLET (FP) PO SCH (22:28)
[2017-08-07] MEDS: INSULIN DETEMIR 100 UNITS/ML MDV SQ SCH (22:29)
[2017-08-07] MEDS: HEPARIN NA (PORCINE) 5,000 UNITS/ML 1ML VIAL SQ SCH (22:29)
[2017-08-08] MEDS ORDERED: PT OWN MED DRAWER 7, Y5N ONE ×3 (02:00→16:51)
[2017-08-08] MEDS: PIPERACILLIN/TAZOB 3.375 GM 3.375 GM in DEXTROSE 5%-WATER - 100 ML IVPB SCH ×3 (02:10→17:09)
[2017-08-08] MEDS: INSULIN SLIDING SCALE (NOVOLOG) 1 VIAL SQ SCH ×4 (06:39→22:26)
[2017-08-08] MEDS: metFORMIN HCL 500 MG TABLET (FP) PO SCH ×2 (06:40→17:07)
[2017-08-08] MEDS: INSULIN DETEMIR 100 UNITS/ML MDV SQ SCH ×2 (06:40→22:25)
[2017-08-08] MEDS: ASPIRIN COATED 81 MG TABLET.EC PO SCH (09:58)
[2017-08-08] MEDS: METOPROLOL SUCCINATE 25 MG TAB.SR.24H (FP) PO SCH (09:58)
[2017-08-08] MEDS: HEPARIN NA (PORCINE) 5,000 UNITS/ML 1ML VIAL SQ SCH ×2 (09:59→22:25)
[2017-08-08] MEDS: amLODIPine BESYLATE 5 MG TABLET (FP) PO SCH (09:59)
[2017-08-08] MEDS: VANCOMYCIN 1,250 MG in DEXTROSE 5%-WATER - 250 ML IVPB SCH (09:59)
[2017-08-08] MEDS: HYDROCHLOROTHIAZIDE 25 MG TABLET (FP) PO SCH ×2 (09:59→22:25)
[2017-08-08] MEDS: traMADol HCL 50 MG TABLET PO PRN (12:02)
--- NOTE | 2017-08-08 16:02 | PN ---
Progress Note (short form) - Note Progress Note: VAscular Surgery Pt seen and examined. Dressing changed. Packing changed. Minimal pus. Pt feels better. WBC coming down to 11.4 Pt is afebrile. ID on case. Dr. Ragland to follow pt in am. 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
--- NOTE | 2017-08-08 17:04 | PN ---
Progress Note, Physician History of Present Illness: c/o of lot of pain dressing changed by vascular today otherwise doing well - Current Medication List Current Medications: Active Medications Acetaminophen (Tylenol -) 650 mg PO Q6H PRN PRN Reason: FEVER OR PAIN Amlodipine Besylate (Norvasc -) 5 mg PO DAILY [facility] Last Admin: 08/08/17 09:59 Dose: 5 mg Aspirin (Ecotrin -) 81 mg PO DAILY [facility] Last Admin: 08/08/17 09:58 Dose: 81 mg Heparin Sodium (Porcine) (Heparin -) 5,000 unit SQ BID [facility] Last Admin: 08/08/17 09:59 Dose: 5,000 unit Hydrochlorothiazide (Hctz -) 25 mg PO BID [facility] Last Admin: 08/08/17 09:59 Dose: 25 mg Hydromorphone HCl (Dilaudid Injection -) 1 mg IVPB Q4H PRN PRN Reason: PAIN Last Admin: 08/08/17 07:02 Dose: 1 mg Vancomycin HCl 1,250 mg/ (Dextrose) 250 mls @ 166.667 mls/hr IVPB DAILY [facility] PRN Reason: Protocol Last Admin: 08/08/17 09:59 Dose: 166.667 mls/hr Piperacillin Sod/Tazobactam (Sod 3.375 gm/ Dextrose) 100 mls @ 200 mls/hr IVPB Q8H-IV [facility] PRN Reason: Protocol Last Admin: 08/08/17 11:19 Dose: 200 mls/hr Insulin Aspart (Novolog Vial Sliding Scale -) 1 vial SQ ACHS [facility] PRN Reason: Protocol Last Admin: 08/08/17 12:01 Dose: 2 units Insulin Detemir (Levemir Vial) 30 units SQ BID@0700,2200 [facility] Last Admin: 08/08/17 06:40 Dose: 30 units Metformin HCl (Glucophage -) 500 mg PO BIDAC [facility] Last Admin: 08/08/17 06:40 Dose: 500 mg Metoprolol Succinate (Toprol Xl -) 25 mg PO DAILY [facility] Last Admin: 08/08/17 09:58 Dose: 25 mg Tramadol HCl (Ultram -) 50 mg PO Q8H PRN PRN Reason: PAIN Last Admin: 08/08/17 12:02 Dose: 50 mg - Objective Vital Signs: Vital Signs Temperature 98 F 08/08/17 14:24 Pulse Rate 93 H 08/08/17 14:24 Respiratory Rate 20 08/08/17 14:24 Blood Pressure 132/69 08/08/17 14:24 O2 Sat by Pulse Oximetry (%) 97 08/08/17 09:00 Constitutional: Yes: Calm, Moderate Distress, Obese Cardiovascular: Yes: Regular Rate and Rhythm Respiratory: Yes: Regular, CTA Bilaterally Gastrointestinal: Yes: Normal Bowel Sounds, Soft Musculoskeletal: Yes: WNL Extremities: Yes: Other Wound/Incision: Yes: Dressing Dry and Intact Neurological: Yes: Alert, Oriented Psychiatric: Yes: Alert, Oriented Labs: CBC, BMP 08/07/17 07:10 08/07/17 07:10 Assessment/Plan Problem List - Problems (1) Diabetic infection of left foot Code(s): E11.69 - TYPE 2 DIABETES MELLITUS WITH OTHER SPECIFIED COMPLICATION; L08.9 - LOCAL INFECTION OF THE SKIN AND SUBCUTANEOUS TISSUE, UNSP (2) Diabetes Code(s): E11.9 - TYPE 2 DIABETES MELLITUS WITHOUT COMPLICATIONS Qualifiers: Diabetes mellitus type: other specified (including LASHAY) Diabetes mellitus complication status: with hyperglycemia Diabetes mellitus intermediate card tender insulin use: unspecified longterm insulin use status Qualified Code(s): E13.65 - Other specified diabetes mellitus with hyperglycemia (3) Failed skin graft Code(s): T86.821 - SKIN GRAFT (ALLOGRAFT) (AUTOGRAFT) FAILURE 4 left foot abscess plan continue iv abx await for cx reports once we have that then will decide about abx rest as per primary team
[2017-08-08] MEDS ORDERED: INSULIN (NOVOLOG) ASPART 100 UNITS/ML 10ML VIAL ONE (22:15)
--- NOTE | 2017-08-08 22:16 | PN ---
Progress Note, Physician History of Present Illness: Pt feels as if his legs are warm Pt remains afebrile - Current Medication List Current Medications: Active Medications Acetaminophen (Tylenol -) 650 mg PO Q6H PRN PRN Reason: FEVER OR PAIN Last Admin: 08/08/17 17:07 Dose: 650 mg Amlodipine Besylate (Norvasc -) 5 mg PO DAILY [facility] Last Admin: 08/08/17 09:59 Dose: 5 mg Aspirin (Ecotrin -) 81 mg PO DAILY [facility] Last Admin: 08/08/17 09:58 Dose: 81 mg Heparin Sodium (Porcine) (Heparin -) 5,000 unit SQ BID [facility] Last Admin: 08/08/17 09:59 Dose: 5,000 unit Hydrochlorothiazide (Hctz -) 25 mg PO BID [facility] Last Admin: 08/08/17 09:59 Dose: 25 mg Hydromorphone HCl (Dilaudid Injection -) 1 mg IVPB Q4H PRN PRN Reason: PAIN Last Admin: 08/08/17 07:02 Dose: 1 mg Vancomycin HCl 1,250 mg/ (Dextrose) 250 mls @ 166.667 mls/hr IVPB DAILY [facility] PRN Reason: Protocol Last Admin: 08/08/17 09:59 Dose: 166.667 mls/hr Piperacillin Sod/Tazobactam (Sod 3.375 gm/ Dextrose) 100 mls @ 200 mls/hr IVPB Q8H-IV [facility] PRN Reason: Protocol Last Admin: 08/08/17 17:09 Dose: 200 mls/hr Insulin Aspart (Novolog Vial Sliding Scale -) 1 vial SQ ACHS [facility] PRN Reason: Protocol Last Admin: 08/08/17 17:09 Dose: 2 units Insulin Detemir (Levemir Vial) 30 units SQ BID@0700,2200 [facility] Last Admin: 08/08/17 06:40 Dose: 30 units Metformin HCl (Glucophage -) 500 mg PO BIDAC [facility] Last Admin: 08/08/17 17:07 Dose: 500 mg Metoprolol Succinate (Toprol Xl -) 25 mg PO DAILY [facility] Last Admin: 08/08/17 09:58 Dose: 25 mg Tramadol HCl (Ultram -) 50 mg PO Q8H PRN PRN Reason: PAIN Last Admin: 08/08/17 12:02 Dose: 50 mg - Objective Vital Signs: Vital Signs Temperature 98.2 F 08/08/17 21:17 Pulse Rate 87 08/08/17 21:17 Respiratory Rate 20 08/08/17 21:17 Blood Pressure 134/65 08/08/17 21:17 O2 Sat by Pulse Oximetry (%) 97 08/08/17 09:00 Constitutional: Yes: Well Nourished HENT: Yes: WNL Neck: Yes: WNL, Supple Cardiovascular: Yes: WNL, Regular Rate and Rhythm Respiratory: Yes: WNL, Regular, CTA Bilaterally Gastrointestinal: Yes: WNL, Normal Bowel Sounds, Soft, Abdomen, Obese Extremities: Yes: Other (Lt foot wrapped in dressing) Edema: LLE: Trace, RLE: Trace Labs: CBC, BMP 08/07/17 07:10 08/07/17 07:10 Problem List - Problems (1) Diabetic infection of left foot Assessment/Plan: S/P I&D Cont IV antibxs Follow cultures Cont wound care WBC decreased ID/Vasc consults noted Code(s): E11.69 - TYPE 2 DIABETES MELLITUS WITH OTHER SPECIFIED COMPLICATION; L08.9 - LOCAL INFECTION OF THE SKIN AND SUBCUTANEOUS TISSUE, UNSP (2) Cellulitis Assessment/Plan: Cont IV antibxs Follow cultures Wound care Code(s): L03.90 - CELLULITIS, UNSPECIFIED Qualifiers: (3) Anemia Assessment/Plan: Multifactorial Due to chronic dz Monitor H/H Code(s): D64.9 - ANEMIA, UNSPECIFIED (4) Diabetes Assessment/Plan: Cont levemir/sliding scale w/ coverage Code(s): E11.9 - TYPE 2 DIABETES MELLITUS WITHOUT COMPLICATIONS Qualifiers: Diabetes mellitus type: other specified (including LASHAY) Diabetes mellitus complication status: with hyperglycemia Diabetes mellitus medical terminologist insulin use: unspecified medical terminologist insulin use status Qualified Code(s): E13.65 - Other specified diabetes mellitus with hyperglycemia (5) CKD (chronic kidney disease) Code(s): N18.9 - CHRONIC KIDNEY DISEASE, UNSPECIFIED (6) HTN (hypertension) Assessment/Plan: BP fluctuating Cont antihypertensives Code(s): I10 - ESSENTIAL (PRIMARY) HYPERTENSION (7) Peripheral neuropathy Code(s): G62.9 - POLYNEUROPATHY, UNSPECIFIED
[2017-08-09] MEDS: traMADol HCL 50 MG TABLET PO PRN ×3 (03:31→21:35)
[2017-08-09] MEDS: PIPERACILLIN/TAZOB 3.375 GM 3.375 GM in DEXTROSE 5%-WATER - 100 ML IVPB SCH ×3 (03:32→17:20)
[2017-08-09] MEDS: INSULIN DETEMIR 100 UNITS/ML MDV SQ SCH ×2 (06:24→21:36)
[2017-08-09] MEDS: INSULIN SLIDING SCALE (NOVOLOG) 1 VIAL SQ SCH ×4 (06:24→21:36)
[2017-08-09] MEDS: metFORMIN HCL 500 MG TABLET (FP) PO SCH ×2 (06:24→17:19)
[2017-08-09 07:57] LABS: BASO % 0.5 % (0-2.0); EOS % 1.6 % (0-4.5); HEMOGLOBIN 7.6 GM/dL (11.7-16.9); LYMPH % 20.5 % (8-40); MCH 22.4 pg (25.7-33.7); MCHC 31.7 g/dl (32.0-35.9); MEAN CELL VOLUME 70.8 fl (80-96); MEAN PLT VOLUME 7.4 fl (7.5-11.1); MONO % 5.5 % (3.8-10.2); NEUT % 71.9 % (42.8-82.8); PLATELET COUNT 769 K/MM3 (134-434); RDW 16.4 % (11.9-15.9); WHITE BLOOD COUNT 9.6 K/mm3 (4.0-10.0)
[2017-08-09 08:33] LABS: ANION GAP 12 (8-16); BLOOD UREA NITROGEN 11 mg/dL (7-18); CALCIUM 8.6 mg/dL (8.5-10.1); CHLORIDE 92 mmol/L (98-107); CO2 30 mmol/L (21-32); GLUCOSE,RANDOM 145 mg/dL (74-106); POTASSIUM 4.1 mmol/L (3.5-5.1); SODIUM 134 mmol/L (136-145)
[2017-08-09 08:36] LABS: ALK PHOS 151 U/L (45-117); BILIRUBIN,TOTAL 0.3 mg/dL (0.2-1.0); CREATININE 0.8 mg/dL (0.7-1.3); SGOT/AST 10 U/L (15-37); SGPT/ALT 13 U/L (12-78); TOT PROT 7.1 g/dl (6.4-8.2)
[2017-08-09] MEDS: METOPROLOL SUCCINATE 25 MG TAB.SR.24H (FP) PO SCH (09:34)
[2017-08-09] MEDS: HYDROCHLOROTHIAZIDE 25 MG TABLET (FP) PO SCH ×2 (09:34→21:36)
[2017-08-09] MEDS: VANCOMYCIN 1,250 MG in DEXTROSE 5%-WATER - 250 ML IVPB SCH (09:34)
[2017-08-09] MEDS: ASPIRIN COATED 81 MG TABLET.EC PO SCH (09:34)
[2017-08-09] MEDS: amLODIPine BESYLATE 5 MG TABLET (FP) PO SCH (09:34)
[2017-08-09] MEDS: HEPARIN NA (PORCINE) 5,000 UNITS/ML 1ML VIAL SQ SCH ×2 (09:34→21:36)
--- NOTE | 2017-08-09 10:02 | PN ---
Progress Note, Physician History of Present Illness: patient feels better pain much better - Current Medication List Current Medications: Active Medications Acetaminophen (Tylenol -) 650 mg PO Q6H PRN PRN Reason: FEVER OR PAIN Last Admin: 08/08/17 17:07 Dose: 650 mg Amlodipine Besylate (Norvasc -) 5 mg PO DAILY [facility] Last Admin: 08/09/17 09:34 Dose: 5 mg Aspirin (Ecotrin -) 81 mg PO DAILY [facility] Last Admin: 08/09/17 09:34 Dose: 81 mg Heparin Sodium (Porcine) (Heparin -) 5,000 unit SQ BID [facility] Last Admin: 08/09/17 09:34 Dose: 5,000 unit Hydrochlorothiazide (Hctz -) 25 mg PO BID [facility] Last Admin: 08/09/17 09:34 Dose: 25 mg Hydromorphone HCl (Dilaudid Injection -) 1 mg IVPB Q4H PRN PRN Reason: PAIN Last Admin: 08/08/17 07:02 Dose: 1 mg Vancomycin HCl 1,250 mg/ (Dextrose) 250 mls @ 166.667 mls/hr IVPB DAILY [facility] PRN Reason: Protocol Last Admin: 08/09/17 09:34 Dose: 166.667 mls/hr Piperacillin Sod/Tazobactam (Sod 3.375 gm/ Dextrose) 100 mls @ 200 mls/hr IVPB Q8H-IV [facility] PRN Reason: Protocol Last Admin: 08/09/17 03:32 Dose: 200 mls/hr Insulin Aspart (Novolog Vial Sliding Scale -) 1 vial SQ ACHS [facility] PRN Reason: Protocol Last Admin: 08/09/17 06:24 Dose: 2 units Insulin Detemir (Levemir Vial) 30 units SQ BID@0700,2200 [facility] Last Admin: 08/09/17 06:24 Dose: 30 units Metformin HCl (Glucophage -) 500 mg PO BIDAC [facility] Last Admin: 08/09/17 06:24 Dose: 500 mg Metoprolol Succinate (Toprol Xl -) 25 mg PO DAILY [facility] Last Admin: 08/09/17 09:34 Dose: 25 mg Tramadol HCl (Ultram -) 50 mg PO Q8H PRN PRN Reason: PAIN Last Admin: 08/09/17 03:31 Dose: 50 mg - Objective Vital Signs: Vital Signs Temperature 98.8 F 08/09/17 08:56 Pulse Rate 92 H 08/09/17 08:56 Respiratory Rate 20 08/09/17 08:56 Blood Pressure 138/74 08/09/17 08:56 O2 Sat by Pulse Oximetry (%) 97 08/08/17 21:00 Constitutional: Yes: No Distress, Calm, Obese Cardiovascular: Yes: Regular Rate and Rhythm Respiratory: Yes: Regular, CTA Bilaterally Gastrointestinal: Yes: Normal Bowel Sounds, Soft Musculoskeletal: Yes: Other Extremities: Yes: Other Wound/Incision: Yes: Dressing Dry and Intact Neurological: Yes: Alert, Oriented Psychiatric: Yes: Alert, Oriented Labs: CBC, BMP 08/09/17 06:00 08/09/17 06:00 Assessment/Plan Problem List - Problems (1) Diabetic infection of left foot Code(s): E11.69 - TYPE 2 DIABETES MELLITUS WITH OTHER SPECIFIED COMPLICATION; L08.9 - LOCAL INFECTION OF THE SKIN AND SUBCUTANEOUS TISSUE, UNSP (2) Diabetes Code(s): E11.9 - TYPE 2 DIABETES MELLITUS WITHOUT COMPLICATIONS Qualifiers: Diabetes mellitus type: other specified (including LASHAY) Diabetes mellitus complication status: with hyperglycemia Diabetes mellitus long term care social worker insulin use: unspecified detention insulin use status Qualified Code(s): E13.65 - Other specified diabetes mellitus with hyperglycemia (3) Failed skin graft Code(s): T86.821 - SKIN GRAFT (ALLOGRAFT) (AUTOGRAFT) FAILURE 4 left foot abscess plan continue iv abx still awaiting cx reports continue current mgmt rest as per vascular and primary team
[2017-08-09] MEDS ORDERED: INSULIN (NOVOLOG) ASPART 100 UNITS/ML 10ML VIAL ONE ×3 (11:36→21:20)
--- NOTE | 2017-08-09 12:03 | PN ---
Progress Note (short form) - Note Progress Note: Podiatry POD# 2 Pt seen and examined. Denies N/V/F/C. States he feels better Dressing changed. Minimal Purulance noted today < 1cc only from dorsal wound, lateral wound clean and dry . Wounds red beefy Pt feels better. WBC normal Pt is afebrile. ID on case. I will see patient tomorrow for dressing change. Vital Signs Period Temp Pulse Resp BP Sys/Mclaughlin Pulse Ox Last 24 Hr 98 F-98.8 F 87-95 20-20 132-138/65-77 97 Laboratory Last Values WBC 9.6 K/mm3 (4.0-10.0) 08/09/17 06:00 RBC 3.40 M/mm3 (4.00-5.60) L 08/09/17 06:00 Hgb 7.6 GM/dL (11.7-16.9) L 08/09/17 06:00 Hct 24.0 % (35.4-49) L 08/09/17 06:00 MCV 70.8 fl (80-96) L 08/09/17 06:00 MCH 22.4 pg (25.7-33.7) L 08/09/17 06:00 MCHC 31.7 g/dl (32.0-35.9) L 08/09/17 06:00 RDW 16.4 % (11.9-15.9) H 08/09/17 06:00 Plt Count 769 K/MM3 (134-434) H 08/09/17 06:00 MPV 7.4 fl (7.5-11.1) L 08/09/17 06:00 Neutrophils % 71.9 % (42.8-82.8) 08/09/17 06:00 Lymphocytes % 20.5 % (8-40) D 08/09/17 06:00 Monocytes % 5.5 % (3.8-10.2) 08/09/17 06:00 Eosinophils % 1.6 % (0-4.5) D 08/09/17 06:00 Basophils % 0.5 % (0-2.0) 08/09/17 06:00 Hypochromia 2+ 08/07/17 07:10 Platelet Estimate Increased 08/07/17 07:10 Polychromasia 0 08/07/17 07:10 Poikilocytosis 0 08/07/17 07:10 Anisocytosis 3+ 08/07/17 07:10 Microcytosis 3+ 08/07/17 07:10 Macrocytosis 0 08/07/17 07:10 Sodium 134 mmol/L (136-145) L 08/09/17 06:00 Potassium 4.1 mmol/L (3.5-5.1) 08/09/17 06:00 Chloride 92 mmol/L (98-107) L 08/09/17 06:00 Carbon Dioxide 30 mmol/L (21-32) 08/09/17 06:00 Anion Gap 12 (8-16) 08/09/17 06:00 BUN 11 mg/dL (7-18) D 08/09/17 06:00 Creatinine 0.8 mg/dL (0.7-1.3) 08/09/17 06:00 Creat Clearance w eGFR > 60 (>60) 08/09/17 06:00 POC Glucometer 166 UNITS (80-120) 08/09/17 06:01 Random Glucose 145 mg/dL (74-106) H D 08/09/17 06:00 Calcium 8.6 mg/dL (8.5-10.1) 08/09/17 06:00 Total Bilirubin 0.3 mg/dL (0.2-1.0) D 08/09/17 06:00 AST 10 U/L (15-37) L D 08/09/17 06:00 ALT 13 U/L (12-78) 08/09/17 06:00 Alkaline Phosphatase 151 U/L (45-117) H 08/09/17 06:00 Total Protein 7.1 g/dl (6.4-8.2) 08/09/17 06:00 Albumin 2.0 g/dl (3.4-5.0) L 08/09/17 06:00 Urine Color Ltyellow 08/06/17 17:10 Urine Appearance Clear 08/06/17 17:10 Urine pH 5.0 (5.0-8.0) D 08/06/17 17:10 Ur Specific [place] 1.024 (1.001-1.035) 08/06/17 17:10 Urine Protein Negative (NEGATIVE) 08/06/17 17:10 Urine Glucose (UA) 3+ (NEGATIVE) H 08/06/17 17:10 Urine Ketones Negative (NEGATIVE) 08/06/17 17:10 Urine Blood 1+ (NEGATIVE) H 08/06/17 17:10 Urine Nitrite Negative (NEGATIVE) 08/06/17 17:10 Urine Bilirubin Negative (NEGATIVE) 08/06/17 17:10 Urine Urobilinogen Negative mg/dL (0.2-1.0) 08/06/17 17:10 Ur Leukocyte Esterase Negative (NEGATIVE) 08/06/17 17:10 Urine WBC (Auto) 2 /hpf (3-5) 08/06/17 17:10 Urine RBC (Auto) 2 /hpf (0-3) 08/06/17 17:10 Urine Mucus Rare 08/06/17 17:10 Microbiology 08/07/17 17:00 Gram Stain - Final Abscess Wound Culture - Preliminary Strep Agalactiae Group B 08/07/17 04:04 Blood Culture - Preliminary Blood - Peripheral Venous NO GROWTH OBTAINED AFTER 48 HOURS, INCUBATION TO CONTINUE FOR 3 DAYS. 08/07/17 03:55 Blood Culture - Preliminary Blood - Peripheral Venous NO GROWTH OBTAINED AFTER 48 HOURS, INCUBATION TO CONTINUE FOR 3 DAYS. Current Active Problems Cellulitis (Acute)... resolved Diabetic infection of left foot (Acute)... resolving Plan: 1) Contin ue IV ABX as per infectious disease 2) Activity: OOB to chair with assistance 3) Will follow
[2017-08-09] MEDS ORDERED: PT OWN MED DRAWER 7, Y5N ONE (17:13)
[2017-08-09] MEDS ORDERED: INSULIN DETEMIR 100 UNITS/ML MDV SQ ONE (18:01)
--- NOTE | 2017-08-09 22:11 | PN ---
Progress Note, Physician History of Present Illness: Pt feeling better - Current Medication List Current Medications: Active Medications Acetaminophen (Tylenol -) 650 mg PO Q6H PRN PRN Reason: FEVER OR PAIN Last Admin: 08/08/17 17:07 Dose: 650 mg Amlodipine Besylate (Norvasc -) 5 mg PO DAILY [facility] Last Admin: 08/09/17 09:34 Dose: 5 mg Aspirin (Ecotrin -) 81 mg PO DAILY [facility] Last Admin: 08/09/17 09:34 Dose: 81 mg Heparin Sodium (Porcine) (Heparin -) 5,000 unit SQ BID [facility] Last Admin: 08/09/17 21:36 Dose: 5,000 unit Hydrochlorothiazide (Hctz -) 25 mg PO BID [facility] Last Admin: 08/09/17 21:36 Dose: 25 mg Hydromorphone HCl (Dilaudid Injection -) 1 mg IVPB Q4H PRN PRN Reason: PAIN Last Admin: 08/08/17 07:02 Dose: 1 mg Vancomycin HCl 1,250 mg/ (Dextrose) 250 mls @ 166.667 mls/hr IVPB DAILY [facility] PRN Reason: Protocol Last Admin: 08/09/17 09:34 Dose: 166.667 mls/hr Piperacillin Sod/Tazobactam (Sod 3.375 gm/ Dextrose) 100 mls @ 200 mls/hr IVPB Q8H-IV [facility] PRN Reason: Protocol Last Admin: 08/09/17 17:20 Dose: 200 mls/hr Insulin Aspart (Novolog Vial Sliding Scale -) 1 vial SQ ACHS [facility] PRN Reason: Protocol Last Admin: 08/09/17 21:36 Dose: 4 units Insulin Detemir (Levemir Vial) 30 units SQ BID@0700,2200 [facility] Last Admin: 08/09/17 21:36 Dose: 30 units Metformin HCl (Glucophage -) 500 mg PO BIDAC [facility] Last Admin: 08/09/17 17:19 Dose: 500 mg Metoprolol Succinate (Toprol Xl -) 25 mg PO DAILY [facility] Last Admin: 08/09/17 09:34 Dose: 25 mg Tramadol HCl (Ultram -) 50 mg PO Q8H PRN PRN Reason: PAIN Last Admin: 08/09/17 21:35 Dose: 50 mg - Objective Vital Signs: Vital Signs Temperature 98.9 F 08/09/17 17:45 Pulse Rate 88 08/09/17 17:45 Respiratory Rate 20 08/09/17 17:45 Blood Pressure 136/71 08/09/17 17:45 O2 Sat by Pulse Oximetry (%) 95 08/09/17 09:00 Constitutional: Yes: Well Nourished Neck: Yes: WNL, Supple Cardiovascular: Yes: WNL, Regular Rate and Rhythm Respiratory: Yes: WNL, Regular, CTA Bilaterally Gastrointestinal: Yes: WNL, Normal Bowel Sounds, Soft Extremities: Yes: Other (Lt foot in dressing) Edema: LLE: Trace, RLE: Trace Labs: CBC, BMP 08/09/17 06:00 08/09/17 06:00 Problem List - Problems (1) Diabetic infection of left foot Assessment/Plan: S/P I&D Cont IV antibxs Follow cultures Cont wound care WBC decreased Code(s): E11.69 - TYPE 2 DIABETES MELLITUS WITH OTHER SPECIFIED COMPLICATION; L08.9 - LOCAL INFECTION OF THE SKIN AND SUBCUTANEOUS TISSUE, UNSP (2) Cellulitis Assessment/Plan: Cont IV antibxs Follow cultures Wound care Code(s): L03.90 - CELLULITIS, UNSPECIFIED Qualifiers: (3) Anemia Assessment/Plan: Multifactorial Due to chronic dz Monitor H/H Code(s): D64.9 - ANEMIA, UNSPECIFIED (4) Diabetes Assessment/Plan: Cont levemir/sliding scale w/ coverage Code(s): E11.9 - TYPE 2 DIABETES MELLITUS WITHOUT COMPLICATIONS Qualifiers: Diabetes mellitus type: other specified (including LASHAY) Diabetes mellitus complication status: with hyperglycemia Diabetes mellitus director long term care insulin use: unspecified shelter insulin use status Qualified Code(s): E13.65 - Other specified diabetes mellitus with hyperglycemia (5) CKD (chronic kidney disease) Code(s): N18.9 - CHRONIC KIDNEY DISEASE, UNSPECIFIED (6) HTN (hypertension) Code(s): I10 - ESSENTIAL (PRIMARY) HYPERTENSION (7) Peripheral neuropathy Code(s): G62.9 - POLYNEUROPATHY, UNSPECIFIED
[2017-08-10] MEDS: PIPERACILLIN/TAZOB 3.375 GM 3.375 GM in DEXTROSE 5%-WATER - 100 ML IVPB SCH ×3 (01:19→17:22)
[2017-08-10] MEDS: INSULIN SLIDING SCALE (NOVOLOG) 1 VIAL SQ SCH ×4 (06:27→22:25)
[2017-08-10] MEDS: INSULIN DETEMIR 100 UNITS/ML MDV SQ SCH ×2 (06:27→22:22)
[2017-08-10] MEDS: metFORMIN HCL 500 MG TABLET (FP) PO SCH ×2 (06:28→17:23)
[2017-08-10] MEDS ORDERED: PT OWN MED DRAWER 7, Y5N ONE ×2 (09:35→17:08)
[2017-08-10] MEDS: HEPARIN NA (PORCINE) 5,000 UNITS/ML 1ML VIAL SQ SCH ×2 (09:40→22:22)
[2017-08-10] MEDS: HYDROCHLOROTHIAZIDE 25 MG TABLET (FP) PO SCH ×2 (09:40→22:22)
[2017-08-10] MEDS: amLODIPine BESYLATE 5 MG TABLET (FP) PO SCH (09:40)
[2017-08-10] MEDS: METOPROLOL SUCCINATE 25 MG TAB.SR.24H (FP) PO SCH (09:40)
[2017-08-10] MEDS: ASPIRIN COATED 81 MG TABLET.EC PO SCH (09:40)
[2017-08-10] MEDS: VANCOMYCIN 1,250 MG in DEXTROSE 5%-WATER - 250 ML IVPB SCH (10:16)
--- NOTE | 2017-08-10 13:15 | PN ---
Progress Note, Physician History of Present Illness: stable doing well pain better - Current Medication List Current Medications: Active Medications Acetaminophen (Tylenol -) 650 mg PO Q6H PRN PRN Reason: FEVER OR PAIN Last Admin: 08/08/17 17:07 Dose: 650 mg Amlodipine Besylate (Norvasc -) 5 mg PO DAILY [facility] Last Admin: 08/10/17 09:40 Dose: 5 mg Aspirin (Ecotrin -) 81 mg PO DAILY [facility] Last Admin: 08/10/17 09:40 Dose: 81 mg Heparin Sodium (Porcine) (Heparin -) 5,000 unit SQ BID [facility] Last Admin: 08/10/17 09:40 Dose: 5,000 unit Hydrochlorothiazide (Hctz -) 25 mg PO BID [facility] Last Admin: 08/10/17 09:40 Dose: 25 mg Hydromorphone HCl (Dilaudid Injection -) 1 mg IVPB Q4H PRN PRN Reason: PAIN Last Admin: 08/08/17 07:02 Dose: 1 mg Piperacillin Sod/Tazobactam (Sod 3.375 gm/ Dextrose) 100 mls @ 200 mls/hr IVPB Q8H-IV [facility] PRN Reason: Protocol Last Admin: 08/10/17 09:37 Dose: 200 mls/hr Insulin Aspart (Novolog Vial Sliding Scale -) 1 vial SQ ACHS [facility] PRN Reason: Protocol Last Admin: 08/10/17 11:51 Dose: 6 units Insulin Detemir (Levemir Vial) 30 units SQ BID@0700,2200 [facility] Last Admin: 08/10/17 06:27 Dose: 30 units Metformin HCl (Glucophage -) 500 mg PO BIDAC [facility] Last Admin: 08/10/17 06:28 Dose: 500 mg Metoprolol Succinate (Toprol Xl -) 25 mg PO DAILY [facility] Last Admin: 08/10/17 09:40 Dose: 25 mg Tramadol HCl (Ultram -) 50 mg PO Q8H PRN PRN Reason: PAIN Last Admin: 08/09/17 21:35 Dose: 50 mg - Objective Vital Signs: Vital Signs Temperature 98.8 F 08/10/17 06:00 Pulse Rate 98 H 08/10/17 06:00 Respiratory Rate 20 08/10/17 06:00 Blood Pressure 143/72 08/10/17 06:00 O2 Sat by Pulse Oximetry (%) 98 08/09/17 21:00 Constitutional: Yes: No Distress, Calm, Obese Cardiovascular: Yes: Regular Rate and Rhythm Respiratory: Yes: Regular, CTA Bilaterally Gastrointestinal: Yes: Normal Bowel Sounds, Soft Musculoskeletal: Yes: Other Extremities: Yes: Other Wound/Incision: Yes: Dressing Dry and Intact Neurological: Yes: Alert, Oriented Psychiatric: Yes: Alert, Oriented Labs: CBC, BMP 08/09/17 06:00 08/09/17 06:00 Assessment/Plan Problem List - Problems (1) Diabetic infection of left foot Code(s): E11.69 - TYPE 2 DIABETES MELLITUS WITH OTHER SPECIFIED COMPLICATION; L08.9 - LOCAL INFECTION OF THE SKIN AND SUBCUTANEOUS TISSUE, UNSP (2) Diabetes Code(s): E11.9 - TYPE 2 DIABETES MELLITUS WITHOUT COMPLICATIONS Qualifiers: Diabetes mellitus type: other specified (including LASHAY) Diabetes mellitus complication status: with hyperglycemia Diabetes mellitus intermediate school teacher insulin use: unspecified intermediate school teacher insulin use status Qualified Code(s): E13.65 - Other specified diabetes mellitus with hyperglycemia (3) Failed skin graft Code(s): T86.821 - SKIN GRAFT (ALLOGRAFT) (AUTOGRAFT) FAILURE 4 left foot abscess cx report noted dressing was changed yesterday organism noted plan will stop vanco will continue zosyn will d/w vascular about further plan rest continue as per primary team
--- NOTE | 2017-08-10 18:15 | DS ---
Physical Examination Vital Signs: Vital Signs Temperature 98.2 F 08/10/17 09:00 Pulse Rate 96 H 08/10/17 09:00 Respiratory Rate 20 08/10/17 09:00 Blood Pressure 147/78 08/10/17 09:00 O2 Sat by Pulse Oximetry (%) 98 08/10/17 09:00 Constitutional: Yes: Well Nourished Neck: Yes: WNL, Supple Cardiovascular: Yes: WNL, Regular Rate and Rhythm Respiratory: Yes: WNL, Regular Gastrointestinal: Yes: WNL, Normal Bowel Sounds, Soft Extremities: Yes: Other ((Lt foot in dressing)) Edema: Yes Edema: LLE: Trace, RLE: Trace Labs: CBC, BMP 08/09/17 06:00 08/09/17 06:00 Discharge Summary Reason For Visit: DIABETIC INFECTION OF LEFT FOOT Current Active Problems (1) Diabetic infection of left foot acute (2) Cellulitis acute (3) Anemia (4) Diabetes (5) CKD (chronic kidney disease) (6) HTN (hypertension) (7) Peripheral neuropathy Hospital Course: Pt is a 56 y/o male with PMH significant for HTN, HLD, IDDM, CKD, osteomyelitis , diabetic foot, periheral neuropathy, gastric ulcer, GERD. Patient presented to the ER with pain to the left foot for more than one week. Patient is followed at wound care. In the ER patient was found to be febrile with a slightly elevated white blood cell count. Patient was found to have erythema and warmth of his left lower extremity. Pt was sent to OR for debridement of Lt foot abscess. Over the coarse of stay he became stable and afebrile. Condition: Good - Instructions Referrals: Gal Becerra MD [Primary Care Provider] - - Home Medications Comprehensive Discharge Medication List: Ambulatory Orders Aspirin Coated [Ecotrin -] 81 mg PO DAILY #30 tablet.ec 04/25/16 Insulin (Levemir) [Levemir Vial] 30 units SQ BID 04/28/16 Amlodipine Besylate [Norvasc -] 5 mg PO DAILY 02/15/17 Esomeprazole Magnesium 40 mg PO BID 02/15/17 Hydrochlorothiazide [Hctz -] 25 mg PO BID 02/15/17 Metformin HCl [Glucophage -] 500 mg PO BID 02/15/17 Metoprolol Succinate [Toprol XL -] 25 mg PO DAILY 02/15/17 Pantoprazole Sodium [Protonix -] 40 mg PO BID #30 tab 05/14/17
--- NOTE | 2017-08-10 20:30 | PN ---
Progress Note (short form) - Note Progress Note: Podiatry POD# 3 Pt seen and examined. Denies N/V/F/C. States he feels much better Dressing changed. No Purulance noted today, both wounds clean and dry . Wounds red beefy No calf tenderness Pt is afebrile. WBC= normal ID on case. Vital Signs Period Temp Pulse Resp BP Sys/Mclaughlin Pulse Ox Last 24 Hr 98.2 F-98.9 F 93-98 20-20 128-154/65-90 98-98 Microbiology 08/07/17 17:00 Gram Stain - Final Abscess Wound Culture - Preliminary Strep Agalactiae Group B 08/07/17 04:04 Blood Culture - Preliminary Blood - Peripheral Venous NO GROWTH OBTAINED AFTER 72 HOURS, INCUBATION TO CONTINUE FOR 2 DAYS. 08/07/17 03:55 Blood Culture - Preliminary Blood - Peripheral Venous NO GROWTH OBTAINED AFTER 72 HOURS, INCUBATION TO CONTINUE FOR 2 DAYS. Laboratory Last Values WBC 9.6 K/mm3 (4.0-10.0) 08/09/17 06:00 RBC 3.40 M/mm3 (4.00-5.60) L 08/09/17 06:00 Hgb 7.6 GM/dL (11.7-16.9) L 08/09/17 06:00 Hct 24.0 % (35.4-49) L 08/09/17 06:00 MCV 70.8 fl (80-96) L 08/09/17 06:00 MCH 22.4 pg (25.7-33.7) L 08/09/17 06:00 MCHC 31.7 g/dl (32.0-35.9) L 08/09/17 06:00 RDW 16.4 % (11.9-15.9) H 08/09/17 06:00 Plt Count 769 K/MM3 (134-434) H 08/09/17 06:00 MPV 7.4 fl (7.5-11.1) L 08/09/17 06:00 Neutrophils % 71.9 % (42.8-82.8) 08/09/17 06:00 Lymphocytes % 20.5 % (8-40) D 08/09/17 06:00 Monocytes % 5.5 % (3.8-10.2) 08/09/17 06:00 Eosinophils % 1.6 % (0-4.5) D 08/09/17 06:00 Basophils % 0.5 % (0-2.0) 08/09/17 06:00 Hypochromia 2+ 08/07/17 07:10 Platelet Estimate Increased 08/07/17 07:10 Polychromasia 0 08/07/17 07:10 Poikilocytosis 0 08/07/17 07:10 Anisocytosis 3+ 08/07/17 07:10 Microcytosis 3+ 08/07/17 07:10 Macrocytosis 0 08/07/17 07:10 Sodium 134 mmol/L (136-145) L 08/09/17 06:00 Potassium 4.1 mmol/L (3.5-5.1) 08/09/17 06:00 Chloride 92 mmol/L (98-107) L 08/09/17 06:00 Carbon Dioxide 30 mmol/L (21-32) 08/09/17 06:00 Anion Gap 12 (8-16) 08/09/17 06:00 BUN 11 mg/dL (7-18) D 08/09/17 06:00 Creatinine 0.8 mg/dL (0.7-1.3) 08/09/17 06:00 Creat Clearance w eGFR > 60 (>60) 08/09/17 06:00 POC Glucometer 182 UNITS (80-120) 08/10/17 16:54 Random Glucose 145 mg/dL (74-106) H D 08/09/17 06:00 Calcium 8.6 mg/dL (8.5-10.1) 08/09/17 06:00 Total Bilirubin 0.3 mg/dL (0.2-1.0) D 08/09/17 06:00 AST 10 U/L (15-37) L D 08/09/17 06:00 ALT 13 U/L (12-78) 08/09/17 06:00 Alkaline Phosphatase 151 U/L (45-117) H 08/09/17 06:00 Total Protein 7.1 g/dl (6.4-8.2) 08/09/17 06:00 Albumin 2.0 g/dl (3.4-5.0) L 08/09/17 06:00 Urine Color Ltyellow 08/06/17 17:10 Urine Appearance Clear 12/26/17 17:10 Urine pH 5.0 (5.0-8.0) D 08/06/17 17:10 Ur Specific [place] 1.024 (1.001-1.035) 08/06/17 17:10 Urine Protein Negative (NEGATIVE) 08/06/17 17:10 Urine Glucose (UA) 3+ (NEGATIVE) H 08/06/17 17:10 Urine Ketones Negative (NEGATIVE) 08/06/17 17:10 Urine Blood 1+ (NEGATIVE) H 08/06/17 17:10 Urine Nitrite Negative (NEGATIVE) 08/06/17 17:10 Urine Bilirubin Negative (NEGATIVE) 08/06/17 17:10 Urine Urobilinogen Negative mg/dL (0.2-1.0) 08/06/17 17:10 Ur Leukocyte Esterase Negative (NEGATIVE) 08/06/17 17:10 Urine WBC (Auto) 2 /hpf (3-5) 08/06/17 17:10 Urine RBC (Auto) 2 /hpf (0-3) 08/06/17 17:10 Urine Mucus Rare 08/06/17 17:10 Current Active Problems Cellulitis (Acute)... resolved Diabetic infection of left foot (Acute)... resolving Plan: 1) Contin ue IV ABX as per infectious disease. Intra-Op C&S noted. Recommend PIC Line / Tunnelled Cath 2) Activity: OOB to chair with assistance 3) Will follow until D/C 4) Nursing to change dressings daily. NS cleanse with moist to dry and Kali wrap.
--- NOTE | 2017-08-10 23:48 | PN ---
Progress Note, Physician History of Present Illness: No new cokmplaints - Current Medication List Current Medications: Active Medications Acetaminophen (Tylenol -) 650 mg PO Q6H PRN PRN Reason: FEVER OR PAIN Last Admin: 08/08/17 17:07 Dose: 650 mg Amlodipine Besylate (Norvasc -) 5 mg PO DAILY [facility] Last Admin: 08/10/17 09:40 Dose: 5 mg Aspirin (Ecotrin -) 81 mg PO DAILY [facility] Last Admin: 08/10/17 09:40 Dose: 81 mg Heparin Sodium (Porcine) (Heparin -) 5,000 unit SQ BID [facility] Last Admin: 08/10/17 22:22 Dose: 5,000 unit Hydrochlorothiazide (Hctz -) 25 mg PO BID [facility] Last Admin: 08/10/17 22:22 Dose: 25 mg Piperacillin Sod/Tazobactam (Sod 3.375 gm/ Dextrose) 100 mls @ 200 mls/hr IVPB Q8H-IV [facility] PRN Reason: Protocol Last Admin: 08/10/17 17:22 Dose: 200 mls/hr Insulin Aspart (Novolog Vial Sliding Scale -) 1 vial SQ ACHS [facility] PRN Reason: Protocol Last Admin: 08/10/17 22:25 Dose: 4 units Insulin Detemir (Levemir Vial) 30 units SQ BID@0700,2200 [facility] Last Admin: 08/10/17 22:22 Dose: 30 units Metformin HCl (Glucophage -) 500 mg PO BIDAC [facility] Last Admin: 08/10/17 17:23 Dose: 500 mg Metoprolol Succinate (Toprol Xl -) 25 mg PO DAILY [facility] Last Admin: 08/10/17 09:40 Dose: 25 mg - Objective Vital Signs: Vital Signs Temperature 98.8 F 08/10/17 18:15 Pulse Rate 93 H 08/10/17 18:15 Respiratory Rate 20 08/10/17 18:15 Blood Pressure 154/90 08/10/17 18:15 O2 Sat by Pulse Oximetry (%) 98 08/10/17 21:00 Constitutional: Yes: Well Nourished HENT: Yes: WNL Neck: Yes: WNL, Supple Cardiovascular: Yes: WNL, Regular Rate and Rhythm Respiratory: Yes: WNL, Regular, CTA Bilaterally Gastrointestinal: Yes: WNL, Normal Bowel Sounds, Soft, Abdomen, Obese Extremities: Yes: Other (B/L chronic ven[place] stasis Lt foot in dressing) Labs: CBC, BMP 08/09/17 06:00 08/09/17 06:00 Problem List - Problems (1) Diabetic infection of left foot Assessment/Plan: S/P I&D Cont IV antibxs Follow cultures Cont wound care Code(s): E11.69 - TYPE 2 DIABETES MELLITUS WITH OTHER SPECIFIED COMPLICATION; L08.9 - LOCAL INFECTION OF THE SKIN AND SUBCUTANEOUS TISSUE, UNSP (2) Cellulitis Assessment/Plan: Cont IV antibxs Follow cultures Wound care Code(s): L03.90 - CELLULITIS, UNSPECIFIED Qualifiers: (3) Anemia Assessment/Plan: Multifactorial Due to chronic dz Monitor H/H Code(s): D64.9 - ANEMIA, UNSPECIFIED (4) Diabetes Assessment/Plan: Cont levemir/sliding scale w/ coverage Code(s): E11.9 - TYPE 2 DIABETES MELLITUS WITHOUT COMPLICATIONS Qualifiers: Diabetes mellitus type: other specified (including LASHAY) Diabetes mellitus complication status: with hyperglycemia Diabetes mellitus custodial insulin use: unspecified custodial insulin use status Qualified Code(s): E13.65 - Other specified diabetes mellitus with hyperglycemia (5) CKD (chronic kidney disease) Code(s): N18.9 - CHRONIC KIDNEY DISEASE, UNSPECIFIED (6) HTN (hypertension) Assessment/Plan: BP stable Cont antihypertensives Code(s): I10 - ESSENTIAL (PRIMARY) HYPERTENSION (7) Peripheral neuropathy Code(s): G62.9 - POLYNEUROPATHY, UNSPECIFIED
[2017-08-11] MEDS ORDERED: PT OWN MED DRAWER 7, Y5N ONE ×2 (01:34→16:45)
[2017-08-11] MEDS: PIPERACILLIN/TAZOB 3.375 GM 3.375 GM in DEXTROSE 5%-WATER - 100 ML IVPB SCH ×4 (01:44→17:02)
[2017-08-11] MEDS: metFORMIN HCL 500 MG TABLET (FP) PO SCH ×2 (06:51→16:51)
[2017-08-11] MEDS: INSULIN DETEMIR 100 UNITS/ML MDV SQ SCH ×2 (06:51→22:58)
[2017-08-11] MEDS: INSULIN SLIDING SCALE (NOVOLOG) 1 VIAL SQ SCH ×4 (06:52→22:57)
[2017-08-11] MEDS: METOPROLOL SUCCINATE 25 MG TAB.SR.24H (FP) PO SCH (11:02)
[2017-08-11] MEDS: amLODIPine BESYLATE 5 MG TABLET (FP) PO SCH (11:02)
[2017-08-11] MEDS: HYDROCHLOROTHIAZIDE 25 MG TABLET (FP) PO SCH ×2 (11:02→23:02)
[2017-08-11] MEDS: HEPARIN NA (PORCINE) 5,000 UNITS/ML 1ML VIAL SQ SCH ×2 (11:02→23:01)
[2017-08-11] MEDS: ASPIRIN COATED 81 MG TABLET.EC PO SCH (11:02)
--- NOTE | 2017-08-11 14:03 | PN ---
Progress Note, Physician History of Present Illness: stable no new issues - Current Medication List Current Medications: Active Medications Acetaminophen (Tylenol -) 650 mg PO Q6H PRN PRN Reason: FEVER OR PAIN Last Admin: 08/08/17 17:07 Dose: 650 mg Amlodipine Besylate (Norvasc -) 5 mg PO DAILY [facility] Last Admin: 08/11/17 11:02 Dose: 5 mg Aspirin (Ecotrin -) 81 mg PO DAILY [facility] Last Admin: 08/11/17 11:02 Dose: 81 mg Heparin Sodium (Porcine) (Heparin -) 5,000 unit SQ BID [facility] Last Admin: 08/11/17 11:02 Dose: 5,000 unit Hydrochlorothiazide (Hctz -) 25 mg PO BID [facility] Last Admin: 08/11/17 11:02 Dose: 25 mg Piperacillin Sod/Tazobactam (Sod 3.375 gm/ Dextrose) 100 mls @ 200 mls/hr IVPB Q8H-IV [facility] PRN Reason: Protocol Last Admin: 08/11/17 10:53 Dose: 200 mls/hr Insulin Aspart (Novolog Vial Sliding Scale -) 1 vial SQ ACHS [facility] PRN Reason: Protocol Last Admin: 08/11/17 11:06 Dose: 6 units Insulin Detemir (Levemir Vial) 30 units SQ BID@0700,2200 [facility] Last Admin: 08/11/17 06:51 Dose: 30 units Metformin HCl (Glucophage -) 500 mg PO BIDAC [facility] Last Admin: 08/11/17 06:51 Dose: 500 mg Metoprolol Succinate (Toprol Xl -) 25 mg PO DAILY [facility] Last Admin: 08/11/17 11:02 Dose: 25 mg - Objective Vital Signs: Vital Signs Temperature 98.6 F 08/11/17 09:00 Pulse Rate 92 H 08/11/17 09:00 Respiratory Rate 18 08/11/17 09:00 Blood Pressure 137/73 08/11/17 09:00 O2 Sat by Pulse Oximetry (%) 98 08/10/17 21:00 Constitutional: Yes: No Distress, Calm, Obese Cardiovascular: Yes: Regular Rate and Rhythm Respiratory: Yes: Regular, CTA Bilaterally Musculoskeletal: Yes: Other Extremities: Yes: Other Neurological: Yes: Alert, Oriented Psychiatric: Yes: Alert, Oriented Labs: CBC, BMP 08/09/17 06:00 08/09/17 06:00 Assessment/Plan Problem List - Problems (1) Diabetic infection of left foot Code(s): E11.69 - TYPE 2 DIABETES MELLITUS WITH OTHER SPECIFIED COMPLICATION; L08.9 - LOCAL INFECTION OF THE SKIN AND SUBCUTANEOUS TISSUE, UNSP (2) Diabetes Code(s): E11.9 - TYPE 2 DIABETES MELLITUS WITHOUT COMPLICATIONS Qualifiers: Diabetes mellitus type: other specified (including LASHAY) Diabetes mellitus complication status: with hyperglycemia Diabetes mellitus half-way insulin use: unspecified intermediate card tender insulin use status Qualified Code(s): E13.65 - Other specified diabetes mellitus with hyperglycemia (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
--- NOTE | 2017-08-11 17:35 | PN ---
Progress Note, Physician History of Present Illness: No new complaints - Current Medication List Current Medications: Active Medications Acetaminophen (Tylenol -) 650 mg PO Q6H PRN PRN Reason: FEVER OR PAIN Last Admin: 08/08/17 17:07 Dose: 650 mg Amlodipine Besylate (Norvasc -) 5 mg PO DAILY [facility] Last Admin: 08/11/17 11:02 Dose: 5 mg Aspirin (Ecotrin -) 81 mg PO DAILY [facility] Last Admin: 08/11/17 11:02 Dose: 81 mg Heparin Sodium (Porcine) (Heparin -) 5,000 unit SQ BID [facility] Last Admin: 08/11/17 11:02 Dose: 5,000 unit Hydrochlorothiazide (Hctz -) 25 mg PO BID [facility] Last Admin: 08/11/17 11:02 Dose: 25 mg Piperacillin Sod/Tazobactam (Sod 3.375 gm/ Dextrose) 100 mls @ 200 mls/hr IVPB Q8H-IV [facility] PRN Reason: Protocol Last Admin: 08/11/17 17:02 Dose: Not Given Insulin Aspart (Novolog Vial Sliding Scale -) 1 vial SQ ACHS [facility] PRN Reason: Protocol Last Admin: 08/11/17 16:52 Dose: 4 units Insulin Detemir (Levemir Vial) 30 units SQ BID@0700,2200 [facility] Last Admin: 08/11/17 06:51 Dose: 30 units Metformin HCl (Glucophage -) 500 mg PO BIDAC [facility] Last Admin: 08/11/17 16:51 Dose: 500 mg Metoprolol Succinate (Toprol Xl -) 25 mg PO DAILY [facility] Last Admin: 08/11/17 11:02 Dose: 25 mg - Objective Vital Signs: Vital Signs Temperature 97.7 F 08/11/17 17:25 Pulse Rate 81 08/11/17 17:25 Respiratory Rate 18 08/11/17 17:25 Blood Pressure 145/71 08/11/17 17:25 O2 Sat by Pulse Oximetry (%) 98 08/11/17 09:00 Constitutional: Yes: Well Nourished HENT: Yes: WNL Neck: Yes: WNL, Supple Cardiovascular: Yes: WNL, Regular Rate and Rhythm Respiratory: Yes: WNL, Regular, CTA Bilaterally Gastrointestinal: Yes: WNL, Normal Bowel Sounds, Soft, Abdomen, Obese Extremities: Yes: Other ((+) lt foot in dressing) Labs: CBC, BMP 08/09/17 06:00 08/09/17 06:00 Problem List - Problems (1) Diabetic infection of left foot Assessment/Plan: S/P I&D Cont IV antibxs Follow cultures Cont wound care Code(s): E11.69 - TYPE 2 DIABETES MELLITUS WITH OTHER SPECIFIED COMPLICATION; L08.9 - LOCAL INFECTION OF THE SKIN AND SUBCUTANEOUS TISSUE, UNSP (2) Cellulitis Assessment/Plan: Cont IV antibxs Follow cultures Wound care Code(s): L03.90 - CELLULITIS, UNSPECIFIED Qualifiers: (3) Anemia Assessment/Plan: Multifactorial Due to chronic dz Monitor H/H Code(s): D64.9 - ANEMIA, UNSPECIFIED (4) Diabetes Code(s): E11.9 - TYPE 2 DIABETES MELLITUS WITHOUT COMPLICATIONS Qualifiers: Diabetes mellitus type: other specified (including LASHAY) Diabetes mellitus complication status: with hyperglycemia Diabetes mellitus extermination supervisor insulin use: unspecified extermination supervisor insulin use status Qualified Code(s): E13.65 - Other specified diabetes mellitus with hyperglycemia (5) CKD (chronic kidney disease) Code(s): N18.9 - CHRONIC KIDNEY DISEASE, UNSPECIFIED (6) HTN (hypertension) Code(s): I10 - ESSENTIAL (PRIMARY) HYPERTENSION (7) Peripheral neuropathy Code(s): G62.9 - POLYNEUROPATHY, UNSPECIFIED
[2017-08-12] MEDS ORDERED: PT OWN MED DRAWER 7, Y5N ONE ×2 (02:02→09:41)
[2017-08-12] MEDS: PIPERACILLIN/TAZOB 3.375 GM 3.375 GM in DEXTROSE 5%-WATER - 100 ML IVPB SCH ×3 (02:06→18:08)
[2017-08-12] MEDS: INSULIN DETEMIR 100 UNITS/ML MDV SQ SCH ×2 (06:36→21:51)
[2017-08-12] MEDS: INSULIN SLIDING SCALE (NOVOLOG) 1 VIAL SQ SCH ×4 (06:37→21:52)
[2017-08-12] MEDS: metFORMIN HCL 500 MG TABLET (FP) PO SCH ×2 (06:38→16:50)
[2017-08-12 08:00] LABS: BASO % 0.9 % (0-2.0); EOS % 1.9 % (0-4.5); HEMATOCRIT 27.1 % (35.4-49); HEMOGLOBIN 8.5 GM/dL (11.7-16.9); LYMPH % 19.9 % (8-40); MCH 22.5 pg (25.7-33.7); MCHC 31.3 g/dl (32.0-35.9); MEAN CELL VOLUME 71.9 fl (80-96); MEAN PLT VOLUME 7.4 fl (7.5-11.1); MONO % 4.9 % (3.8-10.2); NEUT % 72.4 % (42.8-82.8); PLATELET COUNT 892 K/MM3 (134-434); RBC 3.77 M/mm3 (4.00-5.60); RDW 16.9 % (11.9-15.9); WHITE BLOOD COUNT 10.8 K/mm3 (4.0-10.0)
[2017-08-12 08:25] LABS: ALBUMIN 2.4 g/dl (3.4-5.0); ANION GAP 13 (8-16); BLOOD UREA NITROGEN 12 mg/dL (7-18); CHLORIDE 96 mmol/L (98-107); CO2 26 mmol/L (21-32); GLUCOSE,RANDOM 143 mg/dL (74-106); SGPT/ALT 20 U/L (12-78); SODIUM 135 mmol/L (136-145)
[2017-08-12 08:26] LABS: ALK PHOS 136 U/L (45-117); BILIRUBIN,TOTAL 0.2 mg/dL (0.2-1.0); CALCIUM 9.3 mg/dL (8.5-10.1); CREATININE 0.8 mg/dL (0.7-1.3); TOT PROT 7.8 g/dl (6.4-8.2)
[2017-08-12 08:40] LABS: POTASSIUM 4.8 mmol/L (3.5-5.1); SGOT/AST 24 U/L (15-37)
[2017-08-12] MEDS ORDERED: INSULIN (NOVOLOG) ASPART 100 UNITS/ML 10ML VIAL ONE (09:54)
[2017-08-12] MEDS: HEPARIN NA (PORCINE) 5,000 UNITS/ML 1ML VIAL SQ SCH ×2 (10:43→21:51)
[2017-08-12] MEDS: ASPIRIN COATED 81 MG TABLET.EC PO SCH (10:43)
[2017-08-12] MEDS: amLODIPine BESYLATE 5 MG TABLET (FP) PO SCH (10:43)
[2017-08-12] MEDS: METOPROLOL SUCCINATE 25 MG TAB.SR.24H (FP) PO SCH (10:43)
[2017-08-12] MEDS: HYDROCHLOROTHIAZIDE 25 MG TABLET (FP) PO SCH ×2 (10:44→21:51)
--- NOTE | 2017-08-12 14:29 | PN ---
Progress Note, Physician History of Present Illness: stable no issues - Current Medication List Current Medications: Active Medications Acetaminophen (Tylenol -) 650 mg PO Q6H PRN PRN Reason: FEVER OR PAIN Last Admin: 08/08/17 17:07 Dose: 650 mg Amlodipine Besylate (Norvasc -) 5 mg PO DAILY [facility] Last Admin: 08/12/17 10:43 Dose: 5 mg Aspirin (Ecotrin -) 81 mg PO DAILY [facility] Last Admin: 08/12/17 10:43 Dose: 81 mg Heparin Sodium (Porcine) (Heparin -) 5,000 unit SQ BID [facility] Last Admin: 08/12/17 10:43 Dose: 5,000 unit Hydrochlorothiazide (Hctz -) 25 mg PO BID [facility] Last Admin: 08/12/17 10:44 Dose: 25 mg Piperacillin Sod/Tazobactam (Sod 3.375 gm/ Dextrose) 100 mls @ 200 mls/hr IVPB Q8H-IV [facility] PRN Reason: Protocol Last Admin: 08/12/17 12:30 Dose: 200 mls/hr Insulin Aspart (Novolog Vial Sliding Scale -) 1 vial SQ ACHS [facility] PRN Reason: Protocol Last Admin: 08/12/17 10:46 Dose: 4 units Insulin Detemir (Levemir Vial) 30 units SQ BID@0700,2200 [facility] Last Admin: 08/12/17 06:36 Dose: 30 units Metformin HCl (Glucophage -) 500 mg PO BIDAC [facility] Last Admin: 08/12/17 06:38 Dose: 500 mg Metoprolol Succinate (Toprol Xl -) 25 mg PO DAILY [facility] Last Admin: 08/12/17 10:43 Dose: 25 mg - Objective Vital Signs: Vital Signs Temperature 98.8 F 08/12/17 09:00 Pulse Rate 104 H 08/12/17 09:00 Respiratory Rate 18 08/12/17 09:00 Blood Pressure 139/73 08/12/17 09:00 O2 Sat by Pulse Oximetry (%) 98 08/11/17 21:00 Constitutional: Yes: No Distress, Calm, Obese HENT: Yes: Atraumatic, Normocephalic Cardiovascular: Yes: Regular Rate and Rhythm Respiratory: Yes: Regular, CTA Bilaterally Gastrointestinal: Yes: Normal Bowel Sounds, Soft Musculoskeletal: Yes: Other Extremities: Yes: Other Wound/Incision: Yes: Dressing Dry and Intact Neurological: Yes: Alert, Oriented Psychiatric: Yes: Alert Labs: CBC, BMP 08/12/17 05:35 08/12/17 05:35 Assessment/Plan Problem List - Problems (1) Diabetic infection of left foot Code(s): E11.69 - TYPE 2 DIABETES MELLITUS WITH OTHER SPECIFIED COMPLICATION; L08.9 - LOCAL INFECTION OF THE SKIN AND SUBCUTANEOUS TISSUE, UNSP (2) Diabetes Code(s): E11.9 - TYPE 2 DIABETES MELLITUS WITHOUT COMPLICATIONS Qualifiers: Diabetes mellitus type: other specified (including LASHAY) Diabetes mellitus complication status: with hyperglycemia Diabetes mellitus half-way insulin use: unspecified terminal computer operator insulin use status Qualified Code(s): E13.65 - Other specified diabetes mellitus with hyperglycemia (3) Failed skin graft Code(s): T86.821 - SKIN GRAFT (ALLOGRAFT) (AUTOGRAFT) FAILURE 4 left foot abscess plan switch to oral augmentin tomorrow 875mg bid for another 10 days will need mri of the leg after 2- 3 weeks to see how patient is doing
--- NOTE | 2017-08-12 21:02 | PN ---
Progress Note, Physician History of Present Illness: No new complaints - Current Medication List Current Medications: Active Medications Acetaminophen (Tylenol -) 650 mg PO Q6H PRN PRN Reason: FEVER OR PAIN Last Admin: 08/08/17 17:07 Dose: 650 mg Amlodipine Besylate (Norvasc -) 5 mg PO DAILY [facility] Last Admin: 08/12/17 10:43 Dose: 5 mg Aspirin (Ecotrin -) 81 mg PO DAILY [facility] Last Admin: 08/12/17 10:43 Dose: 81 mg Heparin Sodium (Porcine) (Heparin -) 5,000 unit SQ BID [facility] Last Admin: 08/12/17 10:43 Dose: 5,000 unit Hydrochlorothiazide (Hctz -) 25 mg PO BID [facility] Last Admin: 08/12/17 10:44 Dose: 25 mg Piperacillin Sod/Tazobactam (Sod 3.375 gm/ Dextrose) 100 mls @ 200 mls/hr IVPB Q8H-IV [facility] PRN Reason: Protocol Last Admin: 08/12/17 18:08 Dose: 200 mls/hr Insulin Aspart (Novolog Vial Sliding Scale -) 1 vial SQ ACHS [facility] PRN Reason: Protocol Last Admin: 08/12/17 16:51 Dose: 2 units Insulin Detemir (Levemir Vial) 30 units SQ BID@0700,2200 [facility] Last Admin: 08/12/17 06:36 Dose: 30 units Metformin HCl (Glucophage -) 500 mg PO BIDAC [facility] Last Admin: 08/12/17 16:50 Dose: 500 mg Metoprolol Succinate (Toprol Xl -) 25 mg PO DAILY [facility] Last Admin: 08/12/17 10:43 Dose: 25 mg - Objective Vital Signs: Vital Signs Temperature 98.2 F 08/12/17 17:23 Pulse Rate 85 08/12/17 17:23 Respiratory Rate 20 08/12/17 17:23 Blood Pressure 148/77 08/12/17 17:23 O2 Sat by Pulse Oximetry (%) 98 08/12/17 09:00 Constitutional: Yes: Well Nourished HENT: Yes: WNL Neck: Yes: WNL, Supple Cardiovascular: Yes: WNL, Regular Rate and Rhythm Respiratory: Yes: WNL, Regular, CTA Bilaterally Gastrointestinal: Yes: WNL, Normal Bowel Sounds, Soft, Abdomen, Obese Extremities: Yes: Other (B/L chronic venous stasis Lt foot in dressing) Labs: CBC, BMP 08/12/17 05:35 08/12/17 05:35 Problem List - Problems (1) Diabetic infection of left foot Assessment/Plan: S/P I&D Cont IV antibxs DC planning for am Change to po antibxs in am Pt aware that he needs repeat MRI in 2-3 weeks as outpt Follow cultures Cont wound care Code(s): E11.69 - TYPE 2 DIABETES MELLITUS WITH OTHER SPECIFIED COMPLICATION; L08.9 - LOCAL INFECTION OF THE SKIN AND SUBCUTANEOUS TISSUE, UNSP (2) Cellulitis Assessment/Plan: Cont IV antibxs Change to po antibxs in am Follow cultures Wound care Code(s): L03.90 - CELLULITIS, UNSPECIFIED Qualifiers: (3) Anemia Assessment/Plan: Multifactorial Due to chronic dz Monitor H/H Code(s): D64.9 - ANEMIA, UNSPECIFIED (4) Diabetes Assessment/Plan: Cont levemir/sliding scale w/ coverage Code(s): E11.9 - TYPE 2 DIABETES MELLITUS WITHOUT COMPLICATIONS Qualifiers: Diabetes mellitus type: other specified (including LASHAY) Diabetes mellitus complication status: with hyperglycemia Diabetes mellitus potable water treatment operator insulin use: unspecified potable water treatment operator insulin use status Qualified Code(s): E13.65 - Other specified diabetes mellitus with hyperglycemia (5) CKD (chronic kidney disease) Code(s): N18.9 - CHRONIC KIDNEY DISEASE, UNSPECIFIED (6) HTN (hypertension) Assessment/Plan: BP stable Cont antihypertensives Code(s): I10 - ESSENTIAL (PRIMARY) HYPERTENSION (7) Peripheral neuropathy Code(s): G62.9 - POLYNEUROPATHY, UNSPECIFIED
[2017-08-13] MEDS: PIPERACILLIN/TAZOB 3.375 GM 3.375 GM in DEXTROSE 5%-WATER - 100 ML IVPB SCH (02:01)
[2017-08-13] MEDS: metFORMIN HCL 500 MG TABLET (FP) PO SCH (06:05)
[2017-08-13] MEDS: INSULIN DETEMIR 100 UNITS/ML MDV SQ SCH (06:05)
[2017-08-13] MEDS: INSULIN SLIDING SCALE (NOVOLOG) 1 VIAL SQ SCH ×2 (06:05→12:20)
[2017-08-13 06:13] VITALS: TEMP 98.6
--- NOTE | 2017-08-13 09:38 | PN ---
Progress Note, Physician History of Present Illness: stable doing well no complaints says leg feels better - Current Medication List Current Medications: Active Medications Acetaminophen (Tylenol -) 650 mg PO Q6H PRN PRN Reason: FEVER OR PAIN Last Admin: 08/08/17 17:07 Dose: 650 mg Amlodipine Besylate (Norvasc -) 5 mg PO DAILY [facility] Last Admin: 08/12/17 10:43 Dose: 5 mg Aspirin (Ecotrin -) 81 mg PO DAILY [facility] Last Admin: 08/12/17 10:43 Dose: 81 mg Heparin Sodium (Porcine) (Heparin -) 5,000 unit SQ BID [facility] Last Admin: 08/12/17 21:51 Dose: 5,000 unit Hydrochlorothiazide (Hctz -) 25 mg PO BID [facility] Last Admin: 08/12/17 21:51 Dose: 25 mg Piperacillin Sod/Tazobactam (Sod 3.375 gm/ Dextrose) 100 mls @ 200 mls/hr IVPB Q8H-IV [facility] PRN Reason: Protocol Last Admin: 08/13/17 02:01 Dose: 200 mls/hr Insulin Aspart (Novolog Vial Sliding Scale -) 1 vial SQ ACHS [facility] PRN Reason: Protocol Last Admin: 08/13/17 06:05 Dose: 4 units Insulin Detemir (Levemir Vial) 30 units SQ BID@0700,2200 [facility] Last Admin: 08/13/17 06:05 Dose: 30 [facility] Admin: 08/13/17 06:05 Dose: 500 mg Metoprolol Succinate (Toprol Xl -) 25 mg PO DAILY [facility] Last Admin: 08/12/17 10:43 Dose: 25 mg - Objective Vital Signs: Vital Signs Temperature 98.6 F 08/13/17 06:12 Pulse Rate 98 H 08/13/17 06:12 Respiratory Rate 20 08/13/17 06:12 Blood Pressure 145/64 08/13/17 06:12 O2 Sat by Pulse Oximetry (%) 98 08/12/17 21:00 Constitutional: Yes: No Distress, Calm, Obese Cardiovascular: Yes: Regular Rate and Rhythm Respiratory: Yes: Regular, CTA Bilaterally Gastrointestinal: Yes: Normal Bowel Sounds, Soft Musculoskeletal: Yes: WNL Extremities: Yes: Other Wound/Incision: Yes: Dressing Dry and Intact Neurological: Yes: Alert, Oriented Psychiatric: Yes: Alert, Oriented Labs: CBC, BMP 08/12/17 05:35 08/12/17 05:35 Assessment/Plan Problem List - Problems (1) Diabetic infection of left foot Code(s): E11.69 - TYPE 2 DIABETES MELLITUS WITH OTHER SPECIFIED COMPLICATION; L08.9 - LOCAL INFECTION OF THE SKIN AND SUBCUTANEOUS TISSUE, UNSP (2) Diabetes Code(s): E11.9 - TYPE 2 DIABETES MELLITUS WITHOUT COMPLICATIONS Qualifiers: Diabetes mellitus type: other specified (including LASHAY) Diabetes mellitus complication status: with hyperglycemia Diabetes mellitus intermediate insulin use: unspecified intermediate insulin use status Qualified Code(s): E13.65 - Other specified diabetes mellitus with hyperglycemia (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
[2017-08-13 10:08] VITALS: BP 160/80; PULSE 82
[2017-08-13] MEDS ORDERED: PT OWN MED DRAWER 7, Y5N ONE (10:11)
[2017-08-13] MEDS: ASPIRIN COATED 81 MG TABLET.EC PO SCH (10:13)
[2017-08-13] MEDS: HYDROCHLOROTHIAZIDE 25 MG TABLET (FP) PO SCH (10:13)
[2017-08-13] MEDS: HEPARIN NA (PORCINE) 5,000 UNITS/ML 1ML VIAL SQ SCH (10:13)
[2017-08-13] MEDS: amLODIPine BESYLATE 5 MG TABLET (FP) PO SCH (10:13)
[2017-08-13] MEDS: METOPROLOL SUCCINATE 25 MG TAB.SR.24H (FP) PO SCH (10:14)
[2017-08-13] MEDS ORDERED: INSULIN (NOVOLOG) ASPART 100 UNITS/ML 10ML VIAL ONE (12:09)
[2017-08-13] MEDS ORDERED: AMOX TR/POT CLAV 875MG/125MG TABLETS (FP) PO SCH (17:30)
== END 2017-08-13 13:31 | disposition home or self-care (01) | DRG 420 ==
LOC: JER 13:54 → JERBED 16:52 → J8W 08-07 00:13
PROVIDERS: ADMIT Internal Medicine; ATTEND Internal Medicine
PROC: 0Y9N0ZX Drainage of Left Foot, Open Approach, Diagnostic (ICD-10-PCS; principal; 2017-08-07 15:00)
DX: E11.628 Type 2 diabetes mellitus with other skin complications (principal); I10 Essential (primary) hypertension; E11.42 Type 2 diabetes mellitus with diabetic polyneuropathy; E78.5 Hyperlipidemia, unspecified; L03.116 Cellulitis of left lower limb; K25.9 Gastric ulcer, unspecified as acute or chronic, without hemorrhage or perforation; L08.89 Other specified local infections of the skin and subcutaneous tissue; T86.821 Skin graft (allograft) (autograft) failure; I12.9 Hypertensive chronic kidney disease with stage 1 through stage 4 chronic kidney disease, or unspecified chronic kidney disease; E11.22 Type 2 diabetes mellitus with diabetic chronic kidney disease; E11.65 Type 2 diabetes mellitus with hyperglycemia; N18.9 Chronic kidney disease, unspecified; K21.9 Gastro-esophageal reflux disease without esophagitis; D64.9 Anemia, unspecified; B95.1 Streptococcus, group B, as the cause of diseases classified elsewhere; L02.818 Cutaneous abscess of other sites; Z89.022 Acquired absence of left finger(s); Z79.4 Long term (current) use of insulin
CPT/HCPCS: 36415; 71010-TC; 80053; 81003; 81015; 85025; 87040; 87070; 87186; 87205; 90688; 93005; 93010; 93971-TC; 99284-25; A6223; G0008; G0463-25; J1644

== ENCOUNTER 2017-12-10 15:55 | Inpatient (IN) | payer OTHER ==
--- NOTE | 2017-12-10 16:03 | PDOC ---
Rapid Medical Evaluation Time Seen by Provider: 12/10/17 15:57 Medical Evaluation: Allergies Allergy/AdvReac Type Severity Reaction Status Date / Time No Known Allergies Allergy Verified 08/06/17 13:56 12/10/17 15:58 I have performed a brief in-person evaluation of this patient. The patient presents with a chief complaint of: Sent in by PMD for RLE cellulitis w/ fever. Pt also reports injuring RLE today after leg gave out Pertinent physical exam findings: Febrile and tachy w/ RLE significantly swollen w/ diffuse blanchable erythema extending up to thigh I have ordered the following:sepsis order set The patient will proceed to the ED for further evaluation. 12/10/17 16:05 Discharge Disposition - Diagnosis Cellulitis of right leg - Referrals - Patient Instructions - Post Discharge Activity
[2017-12-10] MEDS ORDERED: SODIUM CHLORIDE 1,000 ML IV STA (16:04)
--- NOTE | 2017-12-10 16:22 | PDOC ---
History of Present Illness - General Chief Complaint: Wound Stated Complaint: SWOLLEN LEGS Time Seen by Provider: 12/10/17 15:57 - History of Present Illness Initial Comments: 12/10/17 16:37 The patient is a 57 year old male with a history of HTN, HLD, DM, CAD who presents for evaluation of right lower extremity pain. The patient reports experiencing a mechanical fall 2 day ago with pain to his right knee. He reports worsening pain to the right knee and then noticed worsening swelling to the right lower extremity with associated subjective fevers. He presented to his primary care provider for evaluation who referred him to the ED for admission and further evaluation. The patient otherwise denies SOB, chest pain , nausea, vomiting, abdominal pain, or changes with urination or bowel movements. Past History - Past Medical History Allergies/Adverse Reactions: Allergies Allergy/AdvReac Type Severity Reaction Status Date / Time No Known Allergies Allergy Verified 12/10/17 15:58 Home Medications: Ambulatory Orders Aspirin Coated [Ecotrin -] 81 mg PO DAILY #30 tablet.ec 04/25/16 Insulin (Levemir) [Levemir Vial] 30 units SQ BID 04/28/16 Amlodipine Besylate [Norvasc -] 5 mg PO DAILY 02/15/17 Esomeprazole Magnesium 40 mg PO BID 02/15/17 Hydrochlorothiazide [Hctz -] 25 mg PO BID 02/15/17 Metoprolol Succinate [Toprol XL -] 25 mg PO DAILY 02/15/17 metFORMIN HCL [Glucophage -] 500 mg PO BID 02/15/17 Pantoprazole Sodium [Protonix -] 40 mg PO BID #30 tab 05/14/17 Becaplermin [Regranex] 15 gm TP DAILY #1 gel..gram. 09/10/17 Collagenase Clostridium Hist. [Santyl] 1 applic TP DAILY #90 oint...g. 09/10/17 Anemia: No Asthma: No Cancer: No Cardiac Disorders: Yes CVA: No COPD: No CHF: No Dementia: No Diabetes: Yes (iddm) GI Disorders: Yes (HX.ULCER) Disorders: No HTN: Yes Hypercholesterolemia: Yes Liver Disease: No Seizures: No Thyroid Disease: No - Surgical History Abdominal Surgery: Yes (LEFT INGUINAL HERNIA REPAIR) Appendectomy: No Cardiac Surgery: No Cholecystectomy: No Lung Surgery: No Neurologic Surgery: No Orthopedic Surgery: Yes (right foot surgery, left 5th ray resection) - Suicide/Smoking/Psychosocial Hx Smoking History: Former smoker Have you smoked in the past 12 months: No If you are a former smoker, when did you quit?: 1976 Information on smoking cessation initiated: No Hx Alcohol Use: No Drug/Substance Use Hx: No Substance Use Type: None Hx Substance Use Treatment: No Review of Systems - Review of Systems Comments:: 12/10/17 16:40 Constitutional: Fevers. No chills, fatigue, malaise HEENT: No Rhinorrhea, nasal congestion, visual changes Cardiovascular: No chest pain, syncope, palpitations, lightheadedness Respiratory: No Cough, SOB, Hemoptysis, Gastrointestinal: No Abdominal pain, Nausea, Vomiting, Constipation, Diarrhea, Melena Genitourinary: No Dysuria, Frequency, Urgency, Hesitancy, Hematuria, Flank pain Musculoskeletal: Right leg pain and swelling. No Myalgia, arthralgia Skin: No rashes, itching, bruising, pallor Neurologic: No Headache, Dizziness, Numbness, Weakness, or Tingling Psychiatric: No Hallucinations. No SI or HI *Physical Exam - Vital Signs Last Vital Signs Temp Pulse Resp BP Pulse Ox 100.3 F H 133 H 18 162/97 98 12/10/17 15:58 12/10/17 15:58 12/10/17 15:58 12/10/17 15:58 12/10/17 15:58 - Physical Exam Comments: 12/10/17 16:42 General Appearance: Nourished. In Mild Apparent Distress HEENT: EOMI, JOSSELYN. No Pharyngeal Erythema, Tonsillar Exudate, Tonsillar Erythema Neck: No Cervical Lymphadenopathy Respiratory/Chest: Lungs Clear, Normal Breath Sounds. No Crackles, Rales, Rhonchi, Wheezing Cardiovascular: Regular Rhythm, Regular Rate. No Murmur, Gallops, Rubs Gastrointestinal/Abdominal: Normal Bowel Sounds, Soft. No Guarding, Rebound, Tenderness Musculoskeletal: No CVA Tenderness Extremity: 4+ Tense Edema to the right lower extremity tender to palpation up to the inguinal region with noticable warmth and some erythema. 2+ DP pulses bilaterally. Reduced ROM secondary to pain. Normal Capillary Refill Integumentary: Normal Color, Dry, Warm Neurologic: Fully Oriented, Alert, Normal Mood/Affect, Normal Response, ED Treatment Course - LABORATORY CBC & Chemistry Diagram: 12/10/17 16:31 12/10/17 16:31 - RADIOLOGY Radiology Studies Ordered: Category Date Time Status KNEE 2 POS-RIGHT [RAD] Stat Radiology 12/10/17 16:20 Ordered DUPLEX VASCUL US-1 LEG [US] Stat Ultrasound 12/10/17 16:20 Ordered Medical Decision Making - Medical Decision Making 12/10/17 16:45 The patient is a 57 year old male with a history of HTN, HLD, DM, CAD who presents for evaluation of right lower extremity pain. Differential includes but is not limited to: Cellulitis, DVT, Fracture, Infectious, Metabolic derangement. Given the patient's history and physical exam, it is possible the patient has a DVT given his unilateral leg swelling. We will obtain a cbc, cmp , lactate, troponin, vbg, blood cultures, ua, urine cultures, chest plain film, knee plain film and DVT US to evaluate further for possible etiologies. We will treat in the meantime with iv fluids and iv tylenol. We will continue to monitor and reassess in the ED. 12/10/17 18:39 CBC demonstrates an elevated wbc. CMP, lactate, troponin, coags are unremarkable. DVT US did not demonstrate any evidence of DVT as read by our radiologist. The patient's symptoms are likely due to a severe cellulitis with sepsis. We will cover the patient with vancomycin and zosyn here in the ED. Blood cultures have been sent. We discussed the case with Dr. Oh who accepted the patient for admission. *DC/Admit/Observation/Transfer Diagnosis at time of Disposition: Cellulitis of right leg, Leg edema, right Sepsis Qualifiers: Sepsis type: sepsis due to unspecified organism Qualified Code(s): A41.9 - Sepsis, unspecified organism - Discharge Dispostion Condition at time of disposition: Stable Admit: Yes - Referrals - Patient Instructions - Post Discharge Activity
[2017-12-10] MEDS ORDERED: ACETAMINOPHEN 1000 MG/100 ML VIAL (NON FORMULARY) IVPB ONE (16:29)
[2017-12-10] MEDS ORDERED: ACETAMINOPHEN INJECTION 100 ML IVPB ONE (16:33)
[2017-12-10 16:47] LABS: BASO % 0.9 % (0-2.0); EOS % 0.1 % (0-4.5); HEMATOCRIT 31.6 % (35.4-49); HEMOGLOBIN 10.4 GM/dL (11.7-16.9); LYMPH % 12.9 % (8-40); MCH 23.4 pg (25.7-33.7); MCHC 32.7 g/dl (32.0-35.9); MEAN CELL VOLUME 71.4 fl (80-96); MEAN PLT VOLUME 8.4 fl (7.5-11.1); MONO % 6.2 % (3.8-10.2); NEUT % 79.9 % (42.8-82.8); PLATELET COUNT 409 K/MM3 (134-434); RBC 4.43 M/mm3 (4.00-5.60); WHITE BLOOD COUNT 12.1 K/mm3 (4.0-10.0)
[2017-12-10 17:05] LABS: INR 0.97 (0.82-1.09)
[2017-12-10 17:08] LABS: ACTIVATED PTT 30.2 SECONDS (26.9-34.4)
--- NOTE | 2017-12-10 17:12 | PDOC ---
Attending Attestation - [facility] HPI: 12/10/17 17:19 The patient is a 57 year old male with a significant past medical history of ulcers, HTN, HLD, CAD, and diabetes who presents to the emergency department complaining of right leg pain. The patient reports falling on his right knee 2 days ago. The patient reports right lower extremity swelling and worsening pain. He reports associated an associated symptom of fever. Of note, the patient visited his PCP (Dr. Becerra), who prompted her to visit the ED for further evaluation of right lower extremity cellulitis with fever. The patient denies chest pain, shortness of breath, headache, and dizziness. Denies chills, nausea, vomiting, diarrhea, and constipation. Denies dysuria, frequency, urgency, and hematuria. Allergies: NKDA Past surgical history: Left inguinal hernia repair Social history: Former smoker (1976). No reported alcohol or drug use. PCP: Dr. Gal Becerra - Physicial Exam PE: GENERAL: Well developed, well nourished. Awake and alert. No acute distress. HEENT: Normocephalic, atraumatic. PERRLA, EOMI. No conjunctival pallor. Sclera are non- icteric. Moist mucous membranes. Oropharynx is clear. NECK: Supple. Full ROM. No JVD. Carotid pulses 2+ and symmetric, without bruits. No thyromegaly. No lymphadenopathy. CARDIOVASCULAR: (+)Tachycardic. No murmurs, rubs, or gallops. PULMONARY: No evidence of respiratory distress. Lungs clear to auscultation bilaterally. No wheezing, rales or rhonchi. ABDOMINAL: Soft. Non-tender. Non-distended. No rebound or guarding. No organomegaly. Normoactive bowel sounds. MUSCULOSKELETAL Normal range of motion at all joints. No bony deformities or tenderness. No CVA tenderness. EXTREMITIES: (+) Right leg,Erythematous and tender, swollen from toes to above knee, No actual deformity appreciated. SKIN: Warm and dry. Normal capillary refill. No rashes. No jaundice. NEUROLOGICAL: Alert, awake, appropriate. Cranial nerves 2-12 intact. No deficits to light touch and temperature in face, upper extremities and lower extremities. No motor deficits in the in face, upper extremities and lower extremities. Normoreflexic in the upper and lower extremities. Normal speech. Toes are down- going bilaterally. PSYCHIATRIC: Cooperative. Good eye contact. Appropriate mood and affect. <Kaya Cruz - Last Filed: 12/10/17 19:04> - Resident Resident Name: Rohith Pruittel - ED Attending Attestation I have performed the following: I have examined & evaluated the patient, The case was reviewed & discussed with the resident, I agree w/resident's findings & plan, Exceptions are as noted - Medical Decision Making 12/11/17 00:22 imp cellulits ADMITTED med/surg <Yoli Carolina - Last Filed: 12/11/17 00:22> Attestations - Attestations Documentation prepared by Kaya Cruz, acting as pediatric medical assistant for Yoli Carolina MD. <Kaya Cruz - Last Filed: 12/10/17 19:04> - Attestations Physician Attestation: 12/10/17 20:07 dupplex negative for dvt pt started on antibiotics for cellulitis and admitted to med/surg <Yoli Carolina - Last Filed: 12/11/17 00:22>
[2017-12-10 17:13] LABS: ALBUMIN 3.1 g/dl (3.4-5.0); ALK PHOS 131 U/L (45-117); ANION GAP 8 (8-16); BILIRUBIN,TOTAL 0.6 mg/dL (0.2-1.0); BLOOD UREA NITROGEN 17 mg/dL (7-18); CALCIUM 8.8 mg/dL (8.5-10.1); CHLORIDE 97 mmol/L (98-107); CO2 29 mmol/L (21-32); GLUCOSE,RANDOM 216 mg/dL (74-106); POTASSIUM 3.7 mmol/L (3.5-5.1); SGOT/AST 7 U/L (15-37); SGPT/ALT 15 U/L (12-78); SODIUM 134 mmol/L (136-145); TOT PROT 7.8 g/dl (6.4-8.2)
[2017-12-10] MEDS ORDERED: VANCOMYCIN 1,000 MG in DEXTROSE 5%-WATER - 250 ML IVPB ONE (17:47)
[2017-12-10] MEDS ORDERED: PIPERACILLIN/TAZOB 4.5 GM 4.5 GM in DEXTROSE 5%-WATER 100 ML IVPB ONE (17:47)
[2017-12-10] MEDS ORDERED: PIPERACILLIN/TAZOB 4.5 GM 4.5 GM/100 ML BAG IVPB ONE (18:31)
[2017-12-10] MEDS ORDERED: morphine CARPU-JECT 4 MG/1 ML DISP.SYRIN IVPUSH ONE (18:51)
[2017-12-10] MEDS ORDERED: morphine SULFATE 4 MG/ML VIAL ONE (19:23)
[2017-12-10] MEDS ORDERED: morphine SULFATE 4 MG/ML VIAL IVPUSH ONE (23:06)
--- NOTE | 2017-12-10 23:26 | HP ---
Admitting History and Physical - Admission History of Present Illness: 57 y/o m w/ h/o ulcers, HTN, HLD, CAD, and diabetes c/o right leg pain. He fell on his right knee 2 days ago wc followed with right lower extremity swelling and worsening pain. Associated w/ fever. He also recently visited his PCP (Dr. Becerra), who prompted him to visit the ED for further evaluation of RT LE cellulitis. Denies n/v, diarrhea constipation. No loc, no confusion, dizziness. No recent infections or recent travel. No sick contacts. 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: Peripheral Neuropathy Cardiovascular: Yes: HTN, Hyperlipdemia Renal/: Yes: Renal Inusuff Infectious Disease: Yes: Other (LLE osteo on MRI here 06/2015) Endocrine: Yes: Diabetes Mellitus (on Victoza) - Past Surgical History Past Surgical History: Yes: Hernia Repair (left inguinal) - Smoking History Smoking history: Former smoker Have you smoked in the past 12 months: No If you are a former smoker, when did you quit?: 1976 - Alcohol/Substance Use Hx Alcohol Use: No History of Substance Use: reports: None - Social History ADL: Independent History of Recent Travel: No Home Medications - Allergies Allergies/Adverse Reactions: Allergies Allergy/AdvReac Type Severity Reaction Status Date / Time No Known Allergies Allergy Verified 12/10/17 15:58 - Home Medications Home Medications: Ambulatory Orders Aspirin Coated [Ecotrin -] 81 mg PO DAILY #30 tablet.ec 04/25/16 Insulin (Levemir) [Levemir Vial] 30 units SQ BID 04/28/16 Amlodipine Besylate [Norvasc -] 5 mg PO DAILY 02/15/17 Esomeprazole Magnesium 40 mg PO BID 02/15/17 Hydrochlorothiazide [Hctz -] 25 mg PO BID 02/15/17 Metoprolol Succinate [Toprol XL -] 25 mg PO DAILY 02/15/17 metFORMIN HCL [Glucophage -] 500 mg PO BID 02/15/17 Pantoprazole Sodium [Protonix -] 40 mg PO BID #30 tab 05/14/17 Becaplermin [Regranex] 15 gm TP DAILY #1 gel..gram. 09/10/17 Collagenase Clostridium Hist. [Santyl] 1 applic TP DAILY #90 oint...g. 09/10/17 Cephalexin [Keflex] 500 mg PO TID #30 capsule 12/19/17 Naproxen [Naprosyn] 500 mg PO BID #60 tablet 12/19/17 Physical Examination Vital Signs: Vital Signs Temperature 99.9 F H 12/10/17 19:33 Pulse Rate 102 H 12/10/17 19:33 Respiratory Rate 18 12/10/17 19:33 Blood Pressure 145/63 12/10/17 19:33 O2 Sat by Pulse Oximetry (%) 96 12/10/17 19:33 Constitutional: Yes: No Distress Cardiovascular: Yes: Regular Rate and Rhythm Respiratory: Yes: Regular, CTA Bilaterally Gastrointestinal: Yes: Normal Bowel Sounds Extremities: Yes: Other (Rt LE with erythematous skin) Labs: CBC, BMP 12/10/17 16:31 12/10/17 16:31 Problem List - Problems (1) Acute on chronic diastolic (congestive) heart failure Code(s): I50.33 - ACUTE ON CHRONIC DIASTOLIC (CONGESTIVE) HEART FAILURE (2) Anemia Code(s): D64.9 - ANEMIA, UNSPECIFIED (3) Cellulitis of right leg Code(s): L03.115 - CELLULITIS OF RIGHT LOWER LIMB (4) HTN (hypertension) Code(s): I10 - ESSENTIAL (PRIMARY) HYPERTENSION (5) Leg edema, right Code(s): R60.0 - LOCALIZED EDEMA (6) Morbid obesity Code(s): E66.01 - MORBID (SEVERE) OBESITY DUE TO EXCESS CALORIES Assessment/Plan Pt with h/o fall and swelling of rt erythematous leg. h/o dm and obesity now with leukocytosis -Rt LE Cellulitis: monitor wbc, labs and vital signs. Start abx and monitor for changes. Consult ID
[2017-12-10] MEDS ORDERED: DEXTROSE 5%-0.45% SALINE 1,000 ML IV SCH (23:45)
[2017-12-11 00:48] VITALS: BMI 37.6
[2017-12-11] MEDS ORDERED: DEXTROSE 5%-WATER - 50 ML IVPB ONE (00:58)
[2017-12-11] MEDS ORDERED: PIPERACILLIN/TAZOBACTAM 3.375 GM VIAL IVPB ONE (00:58)
[2017-12-11] MEDS ORDERED: PIPERACILLIN/TAZOB 3.375 GM 3.375 GM in DEXTROSE 5%-WATER - 50 ML IVPB ONE (02:00)
[2017-12-11] MEDS: INSULIN (LEVEMIR) 100 UNITS/ML UNITS SQ SCH ×2 (06:12→21:24)
[2017-12-11] MEDS: INSULIN SLIDING SCALE (NOVOLOG) 1 VIAL SQ SCH ×4 (06:13→21:25)
[2017-12-11] MEDS: metFORMIN HCL 500 MG TABLET (FP) PO SCH ×2 (06:14→17:27)
[2017-12-11] MEDS ORDERED: INSULIN (NOVOLOG) ASPART 100 UNITS/ML 10ML VIAL ONE ×3 (06:35→21:10)
[2017-12-11 07:34] LABS: EOS % 0.1 % (0-4.5); HEMATOCRIT 30.9 % (35.4-49); HEMOGLOBIN 9.9 GM/dL (11.7-16.9); LYMPH % 13.3 % (8-40); MCHC 31.9 g/dl (32.0-35.9); MEAN CELL VOLUME 71.9 fl (80-96); MEAN PLT VOLUME 8.2 fl (7.5-11.1); MONO % 6.7 % (3.8-10.2); NEUT % 78.9 % (42.8-82.8); PLATELET COUNT 359 K/MM3 (134-434); RBC 4.29 M/mm3 (4.00-5.60); RDW 16.8 % (11.9-15.9); WHITE BLOOD COUNT 11.9 K/mm3 (4.0-10.0)
[2017-12-11 07:58] LABS: CALCIUM 8.3 mg/dL (8.5-10.1); CHLORIDE 95 mmol/L (98-107); POTASSIUM 3.9 mmol/L (3.5-5.1); SODIUM 134 mmol/L (136-145)
[2017-12-11 08:04] LABS: ALBUMIN 2.6 g/dl (3.4-5.0); ALK PHOS 129 U/L (45-117); ANION GAP 11 (8-16); BILIRUBIN,TOTAL 0.7 mg/dL (0.2-1.0); BLOOD UREA NITROGEN 11 mg/dL (7-18); CO2 28 mmol/L (21-32); CREATININE 0.7 mg/dL (0.7-1.3); GLUCOSE,RANDOM 265 mg/dL (74-106); SGOT/AST 12 U/L (15-37); SGPT/ALT 14 U/L (12-78); TOT PROT 6.8 g/dl (6.4-8.2)
[2017-12-11] MEDS ORDERED: PT OWN MED DRAWER 7, Y5N ONE (09:29)
[2017-12-11] MEDS: HYDROCHLOROTHIAZIDE 25 MG TABLET (FP) PO SCH ×2 (09:35→21:23)
[2017-12-11] MEDS: ASPIRIN COATED 81 MG TABLET.EC PO SCH (09:35)
[2017-12-11] MEDS: HEPARIN NA (PORCINE) 5,000 UNITS/ML 1ML VIAL SQ SCH ×2 (09:35→21:24)
[2017-12-11] MEDS: metoPROLOL SUCCINATE 25 MG TAB.SR.24H (FP) PO SCH (09:36)
[2017-12-11] MEDS: amLODIPine BESYLATE 5 MG TABLET (FP) PO SCH (09:36)
[2017-12-11] MEDS: PANTOPRAZOLE 40 MG TABLET (FP) PO SCH ×2 (09:36→21:23)
--- NOTE | 2017-12-11 10:27 | EKG ---
Test Reason : Blood Pressure : / mmHG Vent. Rate : 120 BPM Atrial Rate : 120 BPM P-R Int : 154 ms QRS Dur : 066 ms QT Int : 316 ms P-R-T Axes : 047 038 065 degrees QTc Int : 446 ms SINUS TACHYCARDIA WITH PREMATURE ATRIAL COMPLEXES WITH ABERRANT CONDUCTION POSSIBLE LEFT ATRIAL ENLARGEMENT NONSPECIFIC T WAVE ABNORMALITY ABNORMAL ECG WHEN COMPARED WITH ECG OF 06-AUG-2017 18:50, ABERRANT CONDUCTION IS NOW PRESENT Confirmed by MAURI DEAL, BRIAN ([id number]) on 12/11/2017 10:26:50 AM Referred By: Confirmed By:BRIAN DOTSON MD
--- NOTE | 2017-12-11 11:58 | CON.ID ---
Consult Consult Specialty:: infectious diseases Referred by:: Reason for Consultation:: rt leg swelling and cellulitits - History of Present Illness Chief Complaint: pain and swelling of the right leg History of Present Illness: 57 year old male with a history of HTN, HLD, DM, CAD who presents for evaluation of right lower extremity pain. The patient reports experiencing a mechanical fall 2 day ago with pain to his right knee. He reports worsening pain to the right knee and then noticed worsening swelling to the right lower extremity with associated subjective fevers. He presented to his primary care provider for evaluation who referred him to the ED for admission and further evaluation. 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 Cardio/Vascular: Yes: HTN, Hyperlipdemia Renal/: Yes: Renal Inusuff Infectious Disease: Yes: Other (LLE osteo on MRI here 06/2015) Endocrine: Yes: Diabetes Mellitus (on Victoza) - Past Surgical History Past Surgical History: Yes: Hernia Repair (left inguinal) - Alcohol/Substance Use Hx Alcohol Use: No History of Substance Use: reports: None - Smoking History Smoking history: Former smoker Have you smoked in the past 12 months: No If you are a former smoker, when did you quit?: 1976 - Social History ADL: Independent History of Recent Travel: No Home Medications - Allergies Allergies/Adverse Reactions: Allergies Allergy/AdvReac Type Severity Reaction Status Date / Time No Known Allergies Allergy Verified 12/10/17 15:58 - Home Medications Home Medications: Ambulatory Orders Aspirin Coated [Ecotrin -] 81 mg PO DAILY #30 tablet.ec 04/25/16 Insulin (Levemir) [Levemir Vial] 30 units SQ BID 04/28/16 Amlodipine Besylate [Norvasc -] 5 mg PO DAILY 02/15/17 Esomeprazole Magnesium 40 mg PO BID 02/15/17 Hydrochlorothiazide [Hctz -] 25 mg PO BID 02/15/17 Metoprolol Succinate [Toprol XL -] 25 mg PO DAILY 02/15/17 metFORMIN HCL [Glucophage -] 500 mg PO BID 02/15/17 Pantoprazole Sodium [Protonix -] 40 mg PO BID #30 tab 05/14/17 Becaplermin [Regranex] 15 gm TP DAILY #1 gel..gram. 09/10/17 Collagenase Clostridium Hist. [Santyl] 1 applic TP DAILY #90 oint...g. 09/10/17 Review of Systems - Review of Systems Constitutional: reports: Fever Eyes: reports: No Symptoms HENT: reports: No Symptoms Neck: reports: No Symptoms Cardiovascular: reports: No Symptoms Respiratory: reports: No Symptoms Gastrointestinal: reports: No Symptoms Genitourinary: reports: No Symptoms Musculoskeletal: reports: Extremity Pain, Muscle Pain Integumentary: reports: Erythema (rt leg) Neurological: reports: No Symptoms Endocrine: reports: No Symptoms Hematology/Lymphatic: reports: No Symptoms Physical Exam Vital Signs: Vital Signs Temperature 98.6 F 12/11/17 06:51 Pulse Rate 99 H 12/11/17 06:51 Respiratory Rate 20 12/11/17 06:51 Blood Pressure 172/94 12/11/17 06:51 O2 Sat by Pulse Oximetry (%) 97 12/11/17 00:18 Constitutional: Yes: Well Nourished, Calm, Moderate Distress, Obese Eyes: Yes: Conjunctiva Clear HENT: Yes: Atraumatic, Normocephalic Neck: Yes: Supple, Trachea Midline Cardiovascular: Yes: Regular Rate and Rhythm Respiratory: Yes: Regular, CTA Bilaterally Gastrointestinal: Yes: Normal Bowel Sounds, Soft Musculoskeletal: Yes: WNL Extremities: Yes: Erythema, Other Edema: RLE: 1+ Integumentary: Yes: Erythema, Other Neurological: Yes: Alert, Oriented Psychiatric: Yes: Alert, Oriented Labs: CBC, BMP 12/11/17 06:49 12/11/17 06:49 Imaging - Results Chest X-ray: Report Reviewed, Image Reviewed X-ray: Report Reviewed, Image Reviewed Assessment/Plan this patient with multiple medical problems who fell down and developed swelling of his legs with warmth i think his complete swelling and erythema is due to fall i looked at his imaging studies fall swelling of rt leg dm obesity leukocytosis plan at the moment i will hold off on starting abx will see how patient does if the swelling does not improve might need ct/or mri--will make the decision in a day or so patient unable to bear weight on the leg monitor wbc
[2017-12-11] MEDS: VANCOMYCIN 1,000 MG in DEXTROSE 5%-WATER - 250 ML IVPB SCH ×2 (12:36→12:37)
[2017-12-11] MEDS: PIPERACILLIN/TAZOB 3.375 GM 3.375 GM in DEXTROSE 5%-WATER - 50 ML IVPB SCH (12:37)
[2017-12-11] MEDS: ACETAMINOPHEN 325 MG TABLET (FP) PO PRN (17:05)
[2017-12-11] MEDS: morphine SULFATE 4 MG/ML VIAL IVPUSH PRN (21:04)
[2017-12-11] MEDS: AMPICILLIN NA/SULBACTAM NA 3 GM in SODIUM CHLORIDE 100 ML IVPB SCH (21:12)
--- NOTE | 2017-12-11 21:15 | PN ---
Progress Note, Physician - Current Medication List Current Medications: Active Medications Acetaminophen (Tylenol -) 650 mg PO Q6H PRN PRN Reason: PAIN 1-4 Last Admin: 12/11/17 17:05 Dose: 650 mg Amlodipine Besylate (Norvasc -) 5 mg PO DAILY [facility] Last Admin: 12/11/17 09:36 Dose: 5 mg Aspirin (Ecotrin -) 81 mg PO DAILY [facility] Last Admin: 12/11/17 09:35 Dose: 81 mg Heparin Sodium (Porcine) (Heparin -) 5,000 unit SQ BID [facility] Last Admin: 12/11/17 09:35 Dose: 5,000 unit Hydrochlorothiazide (Hctz -) 25 mg PO BID [facility] Last Admin: 12/11/17 09:35 Dose: 25 mg Ampicillin Sodium/Sulbactam (Sodium 3 gm/ Sodium Chloride) 100 mls @ 200 mls/ hr IVPB Q8H-IV [facility] Last Admin: 12/11/17 21:12 Dose: 200 mls/hr Insulin Aspart (Novolog Vial Sliding Scale -) 1 vial SQ ACHS [facility] PRN Reason: Protocol Last Admin: 12/11/17 17:32 Dose: 4 units Insulin Detemir (Levemir Vial) 30 units SQ BID@0700,2200 [facility] Last Admin: 12/11/17 06:12 Dose: 30 units Metformin HCl (Glucophage -) 500 mg PO BIDAC [facility] Last Admin: 12/11/17 17:27 Dose: 500 mg Metoprolol Succinate (Toprol Xl -) 25 mg PO DAILY [facility] Last Admin: 12/11/17 09:36 Dose: 25 mg Morphine Sulfate (Morphine Sulfate) 4 mg IVPUSH Q6H PRN PRN Reason: PAIN 5-10 Last Admin: 12/11/17 21:04 Dose: 4 mg Pantoprazole Sodium (Protonix -) 40 mg PO BID [facility] Last Admin: 12/11/17 09:36 Dose: 40 mg - Objective Vital Signs: Vital Signs Temperature 102.1 F H 12/11/17 18:00 Pulse Rate 106 H 12/11/17 18:00 Respiratory Rate 20 12/11/17 18:00 Blood Pressure 183/85 12/11/17 18:00 O2 Sat by Pulse Oximetry (%) 98 12/11/17 09:00 Labs: CBC, BMP 12/11/17 06:49 12/11/17 06:49 INR, PTT INR 0.97 (0.82-1.09) 12/10/17 16:31
[2017-12-12] MEDS: AMPICILLIN NA/SULBACTAM NA 3 GM in SODIUM CHLORIDE 100 ML IVPB SCH ×3 (02:00→17:36)
[2017-12-12] MEDS: morphine SULFATE 4 MG/ML VIAL IVPUSH PRN ×3 (02:48→16:11)
[2017-12-12] MEDS: INSULIN (LEVEMIR) 100 UNITS/ML UNITS SQ SCH ×2 (06:36→22:24)
[2017-12-12] MEDS: metFORMIN HCL 500 MG TABLET (FP) PO SCH ×2 (06:36→17:37)
[2017-12-12] MEDS: INSULIN SLIDING SCALE (NOVOLOG) 1 VIAL SQ SCH ×4 (06:37→22:23)
[2017-12-12] MEDS ORDERED: PT OWN MED DRAWER 7, Y5N ONE ×2 (09:50→17:33)
[2017-12-12] MEDS: PANTOPRAZOLE 40 MG TABLET (FP) PO SCH ×2 (10:03→22:25)
[2017-12-12] MEDS: amLODIPine BESYLATE 5 MG TABLET (FP) PO SCH (10:03)
[2017-12-12] MEDS: ASPIRIN COATED 81 MG TABLET.EC PO SCH (10:03)
[2017-12-12] MEDS: HYDROCHLOROTHIAZIDE 25 MG TABLET (FP) PO SCH ×2 (10:03→21:14)
[2017-12-12] MEDS: metoPROLOL SUCCINATE 25 MG TAB.SR.24H (FP) PO SCH (10:03)
[2017-12-12] MEDS: HEPARIN NA (PORCINE) 5,000 UNITS/ML 1ML VIAL SQ SCH ×2 (10:04→21:14)
[2017-12-12] MEDS ORDERED: INSULIN (NOVOLOG) ASPART 100 UNITS/ML 10ML VIAL ONE ×2 (12:12→20:57)
--- NOTE | 2017-12-12 13:29 | PN ---
Progress Note, Physician History of Present Illness: patient stbale still with swelling and pain patient started spiking fevers yesterday - Current Medication List Current Medications: Active Medications Acetaminophen (Tylenol -) 650 mg PO Q6H PRN PRN Reason: PAIN 1-4 Last Admin: 12/11/17 17:05 Dose: 650 mg Amlodipine Besylate (Norvasc -) 5 mg PO DAILY [facility] Last Admin: 12/12/17 10:03 Dose: 5 mg Aspirin (Ecotrin -) 81 mg PO DAILY [facility] Last Admin: 12/12/17 10:03 Dose: 81 mg Heparin Sodium (Porcine) (Heparin -) 5,000 unit SQ BID [facility] Last Admin: 12/12/17 10:04 Dose: 5,000 unit Hydrochlorothiazide (Hctz -) 25 mg PO BID [facility] Last Admin: 12/12/17 10:03 Dose: 25 mg Ampicillin Sodium/Sulbactam (Sodium 3 gm/ Sodium Chloride) 100 mls @ 200 mls/ hr IVPB Q8H-IV [facility] Last Admin: 12/12/17 10:03 Dose: 200 mls/hr Insulin Aspart (Novolog Vial Sliding Scale -) 1 vial SQ ACHS [facility] PRN Reason: Protocol Last Admin: 12/12/17 12:13 Dose: 6 units Insulin Detemir (Levemir Vial) 30 units SQ BID@0700,2200 [facility] Last Admin: 12/12/17 06:36 Dose: 30 units Metformin HCl (Glucophage -) [facility] mg [facility] Last Admin: 12/12/17 06:36 Dose: 500 mg Metoprolol Succinate (Toprol Xl -) 25 mg PO DAILY [facility] Last Admin: 12/12/17 10:03 Dose: 25 mg Morphine Sulfate (Morphine Sulfate) 4 mg IVPUSH Q6H PRN PRN Reason: PAIN 5-10 Last Admin: 12/12/17 10:05 Dose: 4 mg Pantoprazole Sodium (Protonix -) 40 mg PO BID [facility] Last Admin: 12/12/17 10:03 Dose: 40 mg - Objective Vital Signs: Vital Signs Temperature 99.9 F H 12/12/17 06:44 Pulse Rate 111 H 12/12/17 06:44 Respiratory Rate 20 12/12/17 06:44 Blood Pressure 147/86 12/12/17 06:44 O2 Sat by Pulse Oximetry (%) 97 12/12/17 09:00 Constitutional: Yes: No Distress, Calm Cardiovascular: Yes: Regular Rate and Rhythm Respiratory: Yes: Regular, CTA Bilaterally Gastrointestinal: Yes: Normal Bowel Sounds, Soft Musculoskeletal: Yes: Other Extremities: Yes: Other Edema: RLE: 1+ Integumentary: Yes: Other Neurological: Yes: Alert, Oriented Psychiatric: Yes: Alert, Oriented Labs: CBC, BMP 12/11/17 06:49 12/11/17 06:49 INR, PTT INR 0.97 (0.82-1.09) 12/10/17 16:31 Assessment/Plan patient spiking fever element of cellulitits fall swelling of rt leg dm obesity leukocytosis plan started abx on the patient will continue for couple of days iv then transition to ora; leg rest all cx result noted
[2017-12-12] MEDS: ACETAMINOPHEN 325 MG TABLET (FP) PO PRN (17:36)
--- NOTE | 2017-12-12 23:16 | PN ---
Progress Note, Physician History of Present Illness: Pt still w/ significantpain RLE - Current Medication List Current Medications: Active Medications Acetaminophen (Tylenol -) 650 mg PO Q6H PRN PRN Reason: PAIN 1-4 Last Admin: 12/12/17 17:36 Dose: 650 mg Amlodipine Besylate (Norvasc -) 5 mg PO DAILY [facility] Last Admin: 12/12/17 10:03 Dose: 5 mg Aspirin (Ecotrin -) 81 mg PO DAILY [facility] Last Admin: 12/12/17 10:03 Dose: 81 mg Diphenhydramine HCl (Benadryl -) 25 mg PO HS PRN PRN Reason: INSOMNIA Heparin Sodium (Porcine) (Heparin -) 5,000 unit SQ BID [facility] Last Admin: 12/12/17 21:14 Dose: 5,000 unit Hydrochlorothiazide (Hctz -) 25 mg PO BID [facility] Last Admin: 12/12/17 21:14 Dose: 25 mg Ampicillin Sodium/Sulbactam (Sodium 3 gm/ Sodium Chloride) 100 mls @ 200 mls/ hr IVPB Q8H-IV [facility] Last Admin: 12/12/17 17:36 Dose: 200 mls/hr Insulin Aspart (Novolog Vial Sliding Scale -) 1 vial SQ ACHS [facility] PRN Reason: Protocol Last Admin: 12/12/17 22:23 Dose: 4 units Insulin Detemir (Levemir Vial) 30 units SQ BID@0700,2200 [facility] Last Admin: 12/12/17 22:24 Dose: 30 units Metformin HCl (Glucophage -) 500 mg PO BIDAC [facility] Last Admin: 12/12/17 17:37 Dose: 500 mg Metoprolol Succinate (Toprol Xl -) 25 mg PO DAILY [facility] Last Admin: 12/12/17 10:03 Dose: 25 mg Morphine Sulfate (Morphine Sulfate) 4 mg IVPUSH Q6H PRN PRN Reason: PAIN 5-10 Last Admin: 12/12/17 16:11 Dose: 4 mg Pantoprazole Sodium (Protonix -) 40 mg PO BID [facility] Last Admin: 12/12/17 22:25 Dose: 40 mg - Objective Vital Signs: Vital Signs Temperature 100.4 F H 12/12/17 18:00 Pulse Rate 101 H 12/12/17 18:00 Respiratory Rate 21 12/12/17 18:00 Blood Pressure 133/76 12/12/17 18:00 O2 Sat by Pulse Oximetry (%) 96 12/12/17 21:00 Constitutional: Yes: Well Nourished Neck: Yes: WNL, Supple Cardiovascular: Yes: WNL, Regular Rate and Rhythm Respiratory: Yes: WNL, Regular, CTA Bilaterally Gastrointestinal: Yes: WNL, Normal Bowel Sounds, Soft Extremities: Yes: Other (RLE (+) erythema/swelling) Edema: RLE: 2+ Labs: CBC, BMP 12/11/17 06:49 12/11/17 06:49 INR, PTT INR 0.97 (0.82-1.09) 12/10/17 16:31 Problem List - Problems (1) Cellulitis of right leg Assessment/Plan: Cont IV unasyn As per ID Follow cultures wc have been negative to date Code(s): L03.115 - CELLULITIS OF RIGHT LOWER LIMB (2) Sepsis Code(s): A41.9 - SEPSIS, UNSPECIFIED ORGANISM Qualifiers: Sepsis type: sepsis due to unspecified organism Qualified Code(s): A41.9 - Sepsis, unspecified organism (3) Anemia Assessment/Plan: Due to chronic dz Monitor H/H Code(s): D64.9 - ANEMIA, UNSPECIFIED (4) CKD (chronic kidney disease) Code(s): N18.9 - CHRONIC KIDNEY DISEASE, UNSPECIFIED (5) Diabetes Assessment/Plan: Cont metformin Cont sliding scale w/ coverage Code(s): E11.9 - TYPE 2 DIABETES MELLITUS WITHOUT COMPLICATIONS Qualifiers: Diabetes mellitus type: other specified (including LASHAY) Diabetes mellitus care home insulin use: unspecified care home insulin use status Diabetes mellitus complication status: with hyperglycemia Qualified Code(s): E13.65 - Other specified diabetes mellitus with hyperglycemia (6) HTN (hypertension) Assessment/Plan: BP stable Cont toprol/norvsac/hctz Code(s): I10 - ESSENTIAL (PRIMARY) HYPERTENSION (7) Chronic CHF Code(s): I50.9 - HEART FAILURE, UNSPECIFIED
[2017-12-13] MEDS: morphine SULFATE 4 MG/ML VIAL IVPUSH PRN (00:48)
[2017-12-13] MEDS: AMPICILLIN NA/SULBACTAM NA 3 GM in SODIUM CHLORIDE 100 ML IVPB SCH ×3 (01:16→17:11)
[2017-12-13] MEDS: INSULIN (LEVEMIR) 100 UNITS/ML UNITS SQ SCH ×2 (06:13→21:26)
[2017-12-13] MEDS: metFORMIN HCL 500 MG TABLET (FP) PO SCH ×2 (06:13→17:11)
[2017-12-13] MEDS: INSULIN SLIDING SCALE (NOVOLOG) 1 VIAL SQ SCH ×4 (06:14→21:26)
[2017-12-13] MEDS ORDERED: PT OWN MED DRAWER 7, Y5N ONE ×2 (09:30→17:06)
[2017-12-13] MEDS: PANTOPRAZOLE 40 MG TABLET (FP) PO SCH ×2 (09:33→21:25)
[2017-12-13] MEDS: metoPROLOL SUCCINATE 25 MG TAB.SR.24H (FP) PO SCH (09:33)
[2017-12-13] MEDS: ASPIRIN COATED 81 MG TABLET.EC PO SCH (09:33)
[2017-12-13] MEDS: HYDROCHLOROTHIAZIDE 25 MG TABLET (FP) PO SCH ×2 (09:33→21:25)
[2017-12-13] MEDS: amLODIPine BESYLATE 5 MG TABLET (FP) PO SCH (09:33)
[2017-12-13] MEDS: HEPARIN NA (PORCINE) 5,000 UNITS/ML 1ML VIAL SQ SCH ×2 (09:33→21:25)
[2017-12-13] MEDS: ACETAMINOPHEN 325 MG TABLET (FP) PO PRN ×3 (09:46→22:29)
[2017-12-13] MEDS ORDERED: INSULIN (NOVOLOG) ASPART 100 UNITS/ML 10ML VIAL ONE ×2 (11:48→20:29)
--- NOTE | 2017-12-13 13:23 | PN ---
Progress Note, Physician History of Present Illness: patient stable still with lot of knee swelling - Current Medication List Current Medications: Active Medications Acetaminophen (Tylenol -) 650 mg PO Q6H PRN PRN Reason: PAIN 1-4 Last Admin: 12/13/17 09:46 Dose: 650 mg Amlodipine Besylate (Norvasc -) 5 mg PO DAILY [facility] Last Admin: 12/13/17 09:33 Dose: 5 mg Aspirin (Ecotrin -) 81 mg PO DAILY [facility] Last Admin: 12/13/17 09:33 Dose: 81 mg Diphenhydramine HCl (Benadryl -) 25 mg PO HS PRN PRN Reason: INSOMNIA Heparin Sodium (Porcine) (Heparin -) 5,000 unit SQ BID [facility] Last Admin: 12/13/17 09:33 Dose: 5,000 unit Hydrochlorothiazide (Hctz -) 25 mg PO BID [facility] Last Admin: 12/13/17 09:33 Dose: 25 mg Ampicillin Sodium/Sulbactam (Sodium 3 gm/ Sodium Chloride) 100 mls @ 200 mls/ hr IVPB Q8H-IV [facility] Last Admin: 12/13/17 09:32 Dose: 200 mls/hr Insulin Aspart (Novolog Vial Sliding Scale -) 1 vial SQ ACHS [facility] PRN Reason: Protocol Last Admin: 12/13/17 12:13 Dose: 6 units Insulin Detemir (Levemir Vial) 30 units SQ BID@0700,2200 [facility] Last Admin: 12/13/17 06:13 Dose: 30 units Metformin HCl (Glucophage -) 500 mg PO BIDAC [facility] Last Admin: 12/13/17 06:13 Dose: 500 mg Metoprolol Succinate (Toprol Xl -) 25 mg PO DAILY [facility] Last Admin: 12/13/17 09:33 Dose: 25 mg Morphine Sulfate (Morphine Sulfate) 4 mg IVPUSH Q6H PRN PRN Reason: PAIN 5-10 Last Admin: 12/13/17 00:48 Dose: 4 mg Pantoprazole Sodium (Protonix -) 40 mg PO BID [facility] Last Admin: 12/13/17 09:33 Dose: 40 mg - Objective Vital Signs: Vital Signs Temperature 100.1 F H 12/13/17 10:00 Pulse Rate 104 H 12/13/17 10:00 Respiratory Rate 20 12/13/17 10:00 Blood Pressure 151/89 12/13/17 10:00 O2 Sat by Pulse Oximetry (%) 97 12/13/17 09:00 Constitutional: Yes: Calm, Mild Distress Cardiovascular: Yes: Regular Rate and Rhythm Respiratory: Yes: Regular, CTA Bilaterally Gastrointestinal: Yes: Normal Bowel Sounds, Soft Musculoskeletal: Yes: WNL Extremities: Yes: Other Neurological: Yes: Alert, Oriented Psychiatric: Yes: Alert, Oriented Labs: CBC, BMP 12/11/17 06:49 12/11/17 06:49 INR, PTT INR 0.97 (0.82-1.09) 12/10/17 16:31 Assessment/Plan patient spiking fever element of cellulitits fall swelling of rt leg dm obesity leukocytosis plan continue abx close watch on the swelling of the knee joint redness has decreased i think we should get a ortho opinion might deescalte abx tomorrow
--- NOTE | 2017-12-13 16:57 | PN ---
Progress Note (short form) - Note Progress Note: Vascular Surgery Pt seen and examined. S/P fall at home Cellulitis getting better. Pt cannot weight bear. Knee, and tib/fib x-rays are neg. Maybe should get ortho eval. Maybe pt has injury to hip during fall. Pt has good pulses. No need for any vascular intervention. US venous - no dvt. Arsh López DO
--- NOTE | 2017-12-13 22:20 | PN ---
Progress Note, Physician History of Present Illness: Pt states that the pain is the same and not improving - Current Medication List Current Medications: Active Medications Acetaminophen (Tylenol -) 650 mg PO Q6H PRN PRN Reason: PAIN 1-4 Last Admin: 12/13/17 17:11 Dose: 650 mg Amlodipine Besylate (Norvasc -) 5 mg PO DAILY [facility] Last Admin: 12/13/17 09:33 Dose: 5 mg Aspirin (Ecotrin -) 81 mg PO DAILY [facility] Last Admin: 12/13/17 09:33 Dose: 81 mg Diphenhydramine HCl (Benadryl -) 25 mg PO HS PRN PRN Reason: INSOMNIA Heparin Sodium (Porcine) (Heparin -) 5,000 unit SQ BID [facility] Last Admin: 12/13/17 21:25 Dose: 5,000 unit Hydrochlorothiazide (Hctz -) 25 mg PO BID [facility] Last Admin: 12/13/17 21:25 Dose: 25 mg Ampicillin Sodium/Sulbactam (Sodium 3 gm/ Sodium Chloride) 100 mls @ 200 mls/ hr IVPB Q8H-IV [facility] Last Admin: 12/13/17 17:11 Dose: 200 mls/hr Insulin Aspart (Novolog Vial Sliding Scale -) 1 vial SQ ACHS [facility] PRN Reason: Protocol Last Admin: 12/13/17 21:26 Dose: 6 units Insulin Detemir (Levemir Vial) 30 units SQ BID@0700,2200 [facility] Last Admin: 12/13/17 21:26 Dose: 30 units Metformin HCl (Glucophage -) 500 mg PO BIDAC [facility] Last Admin: 12/13/17 17:11 Dose: 500 mg Metoprolol Succinate (Toprol Xl -) 25 mg PO DAILY [facility] Last Admin: 12/13/17 09:33 Dose: 25 mg Morphine Sulfate (Morphine Sulfate) 4 mg IVPUSH Q6H PRN PRN Reason: PAIN 5-10 Last Admin: 12/13/17 00:48 Dose: 4 mg Pantoprazole Sodium (Protonix -) 40 mg PO BID [facility] Last Admin: 12/13/17 21:25 Dose: 40 mg - Objective Vital Signs: Vital Signs Temperature 99.7 F H 12/13/17 22:00 Pulse Rate 102 H 12/13/17 22:00 Respiratory Rate 18 12/13/17 22:00 Blood Pressure 179/80 12/13/17 22:00 O2 Sat by Pulse Oximetry (%) 97 12/13/17 21:00 Neck: Yes: WNL, Supple Cardiovascular: Yes: WNL, Regular Rate and Rhythm Respiratory: Yes: WNL, Regular, CTA Bilaterally Gastrointestinal: Yes: WNL, Normal Bowel Sounds, Soft Extremities: Yes: Other ((+) swelling RLE Decreased erythema of RLE) Labs: CBC, BMP 12/11/17 06:49 12/11/17 06:49 INR, PTT INR 0.97 (0.82-1.09) 12/10/17 16:31 Problem List - Problems (1) Cellulitis of right leg Assessment/Plan: Cont IV unasyn Follow cultures wc have been negative to date MRI Knee due to fact that pt states that knee is worst pain Ortho consult Code(s): L03.115 - CELLULITIS OF RIGHT LOWER LIMB (2) Anemia Assessment/Plan: Due to chronic dz Monitor H/H Code(s): D64.9 - ANEMIA, UNSPECIFIED (3) Diabetes Assessment/Plan: Cont metformin/levemir Cont sliding scale w/ coverage Code(s): E11.9 - TYPE 2 DIABETES MELLITUS WITHOUT COMPLICATIONS Qualifiers: Diabetes mellitus type: other specified (including LASHAY) Diabetes mellitus fpc insulin use: unspecified fpc insulin use status Diabetes mellitus complication status: with hyperglycemia Qualified Code(s): E13.65 - Other specified diabetes mellitus with hyperglycemia (4) HTN (hypertension) Assessment/Plan: BP stable Cont toprol/norvsac/hctz Code(s): I10 - ESSENTIAL (PRIMARY) HYPERTENSION (5) Chronic CHF Code(s): I50.9 - HEART FAILURE, UNSPECIFIED (6) Sepsis Code(s): A41.9 - SEPSIS, UNSPECIFIED ORGANISM Qualifiers: Sepsis type: sepsis due to unspecified organism Qualified Code(s): A41.9 - Sepsis, unspecified organism (7) CKD (chronic kidney disease) Code(s): N18.9 - CHRONIC KIDNEY DISEASE, UNSPECIFIED
[2017-12-14] MEDS: AMPICILLIN NA/SULBACTAM NA 3 GM in SODIUM CHLORIDE 100 ML IVPB SCH ×2 (01:32→10:05)
[2017-12-14] MEDS: ACETAMINOPHEN 325 MG TABLET (FP) PO PRN ×2 (04:30→10:11)
[2017-12-14] MEDS: morphine SULFATE 4 MG/ML VIAL IVPUSH PRN ×4 (05:12→23:58)
[2017-12-14] MEDS: INSULIN SLIDING SCALE (NOVOLOG) 1 VIAL SQ SCH ×4 (06:36→21:27)
[2017-12-14] MEDS: INSULIN (LEVEMIR) 100 UNITS/ML UNITS SQ SCH ×2 (06:36→21:24)
[2017-12-14] MEDS: metFORMIN HCL 500 MG TABLET (FP) PO SCH ×2 (06:36→17:12)
[2017-12-14 07:44] LABS: BASO % 0.3 % (0-2.0); EOS % 0.2 % (0-4.5); HEMATOCRIT 29.8 % (35.4-49); HEMOGLOBIN 9.6 GM/dL (11.7-16.9); LYMPH % 13.1 % (8-40); MCH 23.1 pg (25.7-33.7); MCHC 32.3 g/dl (32.0-35.9); MEAN CELL VOLUME 71.6 fl (80-96); MONO % 6.3 % (3.8-10.2); NEUT % 80.1 % (42.8-82.8); PLATELET COUNT 558 K/MM3 (134-434); RBC 4.17 M/mm3 (4.00-5.60); RDW 16.5 % (11.9-15.9); WHITE BLOOD COUNT 13.7 K/mm3 (4.0-10.0)
[2017-12-14 08:08] LABS: CHLORIDE 93 mmol/L (98-107); POTASSIUM 3.8 mmol/L (3.5-5.1); SODIUM 133 mmol/L (136-145)
[2017-12-14 08:20] LABS: ALBUMIN 2.4 g/dl (3.4-5.0); ALK PHOS 120 U/L (45-117); ANION GAP 8 (8-16); BILIRUBIN,TOTAL 0.5 mg/dL (0.2-1.0); BLOOD UREA NITROGEN 12 mg/dL (7-18); CALCIUM 8.5 mg/dL (8.5-10.1); CO2 32 mmol/L (21-32); CREATININE 0.8 mg/dL (0.7-1.3); GLUCOSE,RANDOM 182 mg/dL (74-106); SGOT/AST 9 U/L (15-37); SGPT/ALT 9 U/L (12-78); TOT PROT 7.2 g/dl (6.4-8.2)
[2017-12-14] MEDS ORDERED: PT OWN MED DRAWER 7, Y5N ONE (09:54)
[2017-12-14] MEDS: HEPARIN NA (PORCINE) 5,000 UNITS/ML 1ML VIAL SQ SCH ×2 (10:03→21:25)
[2017-12-14] MEDS: metoPROLOL SUCCINATE 25 MG TAB.SR.24H (FP) PO SCH (10:03)
[2017-12-14] MEDS: PANTOPRAZOLE 40 MG TABLET (FP) PO SCH ×2 (10:04→21:25)
[2017-12-14] MEDS: HYDROCHLOROTHIAZIDE 25 MG TABLET (FP) PO SCH ×2 (10:04→21:25)
[2017-12-14] MEDS: ASPIRIN COATED 81 MG TABLET.EC PO SCH (10:04)
[2017-12-14] MEDS: amLODIPine BESYLATE 5 MG TABLET (FP) PO SCH (10:04)
--- NOTE | 2017-12-14 12:32 | PN ---
Physical Exam: SUBJECTIVE: Patient seen and examined. c/o of pain in the right leg, morphine helps but he feels that his leg is still swollen. OBJECTIVE: ID stopped antibiotics Ortho has been consulted Increased frequency of morphine from q6 to q4 for pain relief MRI Knee pending Vital Signs Period Temp Pulse Resp BP Sys/Mclaughlin Pulse Ox Last 24 Hr 98.7 F-100.2 F 100-105 18-22 150-179/76-87 95-97 GENERAL: The patient is awake, alert, and fully oriented, in no acute distress. HEAD: Normal with no signs of trauma. EYES: PERRL, extraocular movements intact, sclera anicteric, conjunctiva clear. No ptosis. ENT: Ears normal, nares patent, oropharynx clear without exudates, moist mucous membranes. NECK: Trachea midline, full range of motion, supple. LUNGS: Breath sounds equal, clear to auscultation bilaterally, no wheezes HEART: Regular rate and rhythm, S1, S2 without murmur, rub or gallop. ABDOMEN: Soft, nontender, nondistended, normoactive bowel sounds, no guarding, no rebound, no hepatosplenomegaly, no masses. EXTREMITIES: right leg edema, edematous right knee, negative for DVT NEUROLOGICAL Normal speech, gait not observed. PSYCH: Normal mood, normal affect. Laboratory Results - last 24 hr 12/13/17 12/13/17 12/14/17 16:59 21:13 05:51 WBC RBC Hgb Hct MCV MCH MCHC RDW Plt Count MPV Neutrophils % Lymphocytes % Monocytes % Eosinophils % Basophils % Sodium Potassium Chloride Carbon Dioxide Anion Gap BUN Creatinine Creat Clearance w eGFR POC Glucometer 217 270 199 Random Glucose Calcium Total Bilirubin AST ALT Alkaline Phosphatase Total Protein Albumin 12/14/17 12/14/17 12/14/17 06:00 06:00 11:28 WBC 13.7 H RBC 4.17 Hgb 9.6 L Hct 29.8 L MCV 71.6 L MCH 23.1 L MCHC 32.3 RDW 16.5 H Plt Count 558 H D MPV 8.0 Neutrophils % 80.1 Lymphocytes % 13.1 Monocytes % 6.3 Eosinophils % 0.2 D Basophils % 0.3 Sodium 133 L Potassium 3.8 Chloride 93 L Carbon Dioxide 32 Anion Gap 8 BUN 12 Creatinine 0.8 Creat Clearance w eGFR > 60 POC Glucometer 260 Random Glucose 182 H D Calcium 8.5 Total Bilirubin 0.5 D AST 9 L D ALT 9 L D Alkaline Phosphatase 120 H Total Protein 7.2 Albumin 2.4 L Active Medications Generic Name Dose Route Start Last Admin Trade Name Freq PRN Reason Stop Dose Admin Acetaminophen 650 mg 12/11/17 11:53 12/14/17 10:11 Tylenol - PO 650 mg Q6H PRN Administration PAIN 1-4 Amlodipine Besylate 5 mg 12/11/17 10:00 12/14/17 10:04 Norvasc - PO 5 mg DAILY [facility] Administration Aspirin 81 mg 12/11/17 10:00 12/14/17 10:04 Ecotrin - PO 81 mg DAILY [facility] Administration Diphenhydramine HCl 25 mg 12/12/17 18:24 Benadryl - PO HS PRN INSOMNIA Heparin Sodium (Porcine) 5,000 unit 12/11/17 10:00 12/14/17 10:03 Heparin - SQ 5,000 unit BID [facility] Administration Hydrochlorothiazide 25 mg 12/11/17 10:00 12/14/17 10:04 Hctz - PO 25 mg BID [facility] Administration Ampicillin Sodium/Sulbactam 100 mls @ 200 mls/hr 12/11/17 19:00 12/14/17 10: 05 Sodium 3 gm/ Sodium Chloride IVPB 200 mls/hr Q8H-IV [facility] Administration Insulin Aspart 1 vial 12/11/17 07:00 12/14/17 11:46 Novolog Vial Sliding Scale - SQ 6 units ACHS [facility] Administration Protocol Insulin Detemir 30 units 12/11/17 07:00 12/14/17 06:36 Levemir Vial SQ 30 units BID@0700,2200 [facility] Administration Metformin HCl 500 mg 12/11/17 07:00 12/14/17 06:36 Glucophage - PO 500 mg BIDAC [facility] Administration Metoprolol Succinate 25 mg 12/11/17 10:00 12/14/17 10:03 Toprol Xl - PO 25 mg DAILY [facility] Administration Morphine Sulfate 4 mg 12/14/17 12:25 Morphine Injection - IVPUSH Q4H PRN PAIN Pantoprazole Sodium 40 mg 12/11/17 10:00 12/14/17 10:04 Protonix - PO 40 mg BID [facility] Administration ASSESSMENT/PLAN: Patient is a 57 year old male with a significant past medical history of hypertension, hld, diabetes mellitus and CAD. He presents to the ED on 2017 for evaluation of right lower extremity pain s/p mechanical fall to his right knee. He reports worsening pain to the right knee and then noticed worsening swelling to the right lower extremity with associated subjective fevers. He presented to his primary care provider for evaluation who referred him to the ED for admission and further evaluation. ID: Right leg cellulitis MRI of knee pending wbc 13.7, low grade fevers On Unasyn, but stopped today by ID Monitor off antibiotics Ortho consulted, notes reviewed Cardiac: Hypertension, chronic Chronic CHF BP stable Continue Toprol, Norvac, Hctz, ASA 81mg Heme: Anemia, chronic Monitor with daily CBC Endocrine: Diabetes, chronic Elevated BGMs Increased Levemir to 35units BID Tightened sliding scale F.E.N. Fluids: tolerating PO Electrolytes: monitor with daily labs Nutrition: diabetic diet Prophy: DVT: SCDS GI: Protonix Disposition: full code Visit type - Emergency Visit Emergency Visit: Yes ED Registration Date: 12/10/17 Care time: The patient presented to the Emergency Department on the above date and was hospitalized for further evaluation of their emergent condition. - New Patient This patient is new to me today: Yes Date on this admission: 12/14/17 - Critical Care Critical Care patient: No - Discharge Referral Referred to [facility] Med P.C.: No
--- NOTE | 2017-12-14 13:11 | PN ---
Progress Note, Physician History of Present Illness: unable to move the joint knee very painful still swollen - Current Medication List Current Medications: Active Medications Acetaminophen (Tylenol -) 650 mg PO Q6H PRN PRN Reason: PAIN 1-4 Last Admin: 12/14/17 10:11 Dose: 650 mg Amlodipine Besylate (Norvasc -) 5 mg PO DAILY [facility] Last Admin: 12/14/17 10:04 Dose: 5 mg Aspirin (Ecotrin -) 81 mg PO DAILY [facility] Last Admin: 12/14/17 10:04 Dose: 81 mg Diphenhydramine HCl (Benadryl -) 25 mg PO HS PRN PRN Reason: INSOMNIA Heparin Sodium (Porcine) (Heparin -) 5,000 unit SQ BID [facility] Last Admin: 12/14/17 10:03 Dose: 5,000 unit Hydrochlorothiazide (Hctz -) 25 mg PO BID [facility] Last Admin: 12/14/17 10:04 Dose: 25 mg Insulin Aspart (Novolog Vial Sliding Scale -) 1 vial SQ ACHS [facility] PRN Reason: Protocol Last Admin: 12/14/17 11:46 Dose: 6 units Insulin Detemir (Levemir Vial) 30 units SQ BID@0700,2200 [facility] Last Admin: 12/14/17 06:36 Dose: 30 units Metformin HCl (Glucophage -) 500 mg PO BIDAC [facility] Last Admin: 12/14/17 06:36 Dose: 500 mg Metoprolol Succinate (Toprol Xl -) 25 mg PO DAILY [facility] Last Admin: 12/14/17 10:03 Dose: 25 mg Morphine Sulfate (Morphine Injection -) 4 mg IVPUSH Q4H PRN PRN Reason: PAIN Pantoprazole Sodium (Protonix -) 40 mg PO BID [facility] Last Admin: 12/14/17 10:04 Dose: 40 mg - Objective Vital Signs: Vital Signs Temperature 99.9 F H 12/14/17 10:00 Pulse Rate 100 H 12/14/17 10:00 Respiratory Rate 18 12/14/17 10:00 Blood Pressure 153/78 12/14/17 10:00 O2 Sat by Pulse Oximetry (%) 95 12/14/17 09:00 Constitutional: Yes: No Distress, Calm Cardiovascular: Yes: Regular Rate and Rhythm Respiratory: Yes: Regular, CTA Bilaterally Gastrointestinal: Yes: Normal Bowel Sounds, Soft Musculoskeletal: Yes: Other Extremities: Yes: Other Neurological: Yes: Alert, Oriented Psychiatric: Yes: Alert, Oriented Labs: CBC, BMP 12/14/17 06:00 12/14/17 06:00 INR, PTT INR 0.97 (0.82-1.09) 12/10/17 16:31 Assessment/Plan patient spiking fever element of cellulitits fall swelling of rt leg dm obesity leukocytosis plan will stop abx an monitor await for final mri result ortho consult consideration rest as per the team
[2017-12-14] MEDS ORDERED: LIDOCAINE HCL 1%, 10 MG/ML (50 mL VIAL) SQ ONE (13:45)
[2017-12-14] MEDS ORDERED: LIDOCAINE HCL/PF 1% SDV 5ML VIAL ONE (13:49)
[2017-12-14] MEDS ORDERED: LIDOCAINE HCL 1%, 10 MG/ML (20ML VIAL) NR ONE (14:00)
--- NOTE | 2017-12-14 14:06 | CON.ORTH ---
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: Yes: Peripheral Neuropathy Cardio/Vascular: Yes: HTN, Hyperlipdemia Renal/: Yes: Renal Inusuff Infectious Disease: Yes: Other (LLE osteo on MRI here 06/2015) Endocrine: Yes: Diabetes Mellitus (on Victoza) - Past Surgical History Past Surgical History: Yes: Hernia Repair (left inguinal) - Alcohol/Substance Use Hx Alcohol Use: No History of Substance Use: reports: None - Smoking History Smoking history: Former smoker Have you smoked in the past 12 months: No If you are a former smoker, when did you quit?: 1976 - Social History ADL: Independent History of Recent Travel: No Home Medications - Allergies Allergies/Adverse Reactions: Allergies Allergy/AdvReac Type Severity Reaction Status Date / Time No Known Allergies Allergy Verified 12/10/17 15:58 - Home Medications Home Medications: Ambulatory Orders Aspirin Coated [Ecotrin -] 81 mg PO DAILY #30 tablet.ec 04/25/16 Insulin (Levemir) [Levemir Vial] 30 units SQ BID 04/28/16 Amlodipine Besylate [Norvasc -] 5 mg PO DAILY 02/15/17 Esomeprazole Magnesium 40 mg PO BID 02/15/17 Hydrochlorothiazide [Hctz -] 25 mg PO BID 02/15/17 Metoprolol Succinate [Toprol XL -] 25 mg PO DAILY 02/15/17 metFORMIN HCL [Glucophage -] 500 mg PO BID 02/15/17 Pantoprazole Sodium [Protonix -] 40 mg PO BID #30 tab 05/14/17 Becaplermin [Regranex] 15 gm TP DAILY #1 gel..gram. 09/10/17 Collagenase Clostridium Hist. [Santyl] 1 applic TP DAILY #90 oint...g. 09/10/17 Physical Exam for Ortho Vital Signs: Vital Signs Temperature 99.9 F H 12/14/17 10:00 Pulse Rate 100 H 12/14/17 10:00 Respiratory Rate 18 12/14/17 10:00 Blood Pressure 153/78 12/14/17 10:00 O2 Sat by Pulse Oximetry (%) 95 12/14/17 09:00 Labs: CBC, BMP 12/14/17 06:00 12/14/17 06:00 INR, PTT INR 0.97 (0.82-1.09) 12/10/17 16:31 - Lower Extremity Knee: Yes: Right, Erythema, Limited ROM, Pain, Swelling, Tenderness, Other (2+ effusion, + ttp, ROM 0-20, nvi) Imaging - Results X-ray: Report Reviewed, Image Reviewed MRI: Image Reviewed Assessment/Plan 57 year old male with a significant past medical history of ulcers, HTN, HLD, CAD, and diabetes who presents to the emergency department complaining of right leg pain. The patient reports falling on his right knee 1 week ago. The patient reports right lower extremity swelling and worsening pain. He reports associated an associated symptom of fever. Of note, the patient visited his PCP (Dr. Becerra), who prompted her to visit the ED for further evaluation of right lower extremity cellulitis with fever. Pt has been on Abx for the pat few days and has noted improvement and decreased swelling. at time of injury pt states that he felt ok and was able to ambulate with little pain. However the next day he began having pain and swelling. a/p- Right knee medial and lateral meniscus tears with cellulitis Consent obtained, time-out performed, under sterile technique right knee was aspirated, 50 cc of blood tinged inflammatory fluid obtained and sent to lab for analysis, aspiration was tolerated well. Pt immediately had less pain and increase motion to 0-90 and was able to SLR f/u final MRI report Ice, elevation PT eval wbat continue abx as per ID pain control will follow d/w Dr. Garcia
[2017-12-14 15:18] LABS: GLUCOSE,SYNOVIAL FLUID 47 mg/dL; TOTAL PROTEIN,SYNOVIAL FLUID 4 gm/dL
[2017-12-14 15:30] LABS: CRYSTALS,SYNOVIAL FLUID NEGATIVE
[2017-12-14 16:20] LABS: SYNOVIAL FLUID RBC 65415 /mm3; SYNOVIAL FLUID SOURCE SYNOVIAL
[2017-12-14 16:29] LABS: SYNOVIAL FLUID LYMPHOCYTES 27 %; SYNOVIAL FLUID MACROPHAGES 3 %; SYNOVIAL FLUID MONOCYTES 28 %; SYNOVIAL FLUID NEUTROPHILS 42 %
[2017-12-14] MEDS: diphenhydrAMINE HCL 25 MG CAPSULE (FP) PO PRN (21:25)
[2017-12-14] MEDS ORDERED: INSULIN (NOVOLOG) ASPART 100 UNITS/ML 10ML VIAL ONE (21:27)
[2017-12-15] MEDS: metFORMIN HCL 500 MG TABLET (FP) PO SCH ×2 (06:44→17:17)
[2017-12-15] MEDS: INSULIN (LEVEMIR) 100 UNITS/ML UNITS SQ SCH ×2 (06:44→22:03)
[2017-12-15] MEDS: INSULIN SLIDING SCALE (NOVOLOG) 1 VIAL SQ SCH ×4 (06:45→22:03)
[2017-12-15] MEDS: ACETAMINOPHEN 325 MG TABLET (FP) PO PRN ×3 (06:50→22:02)
[2017-12-15] MEDS ORDERED: INSULIN (NOVOLOG) ASPART 100 UNITS/ML 10ML VIAL ONE ×3 (06:57→21:58)
[2017-12-15 09:56] LABS: BASO % 0.3 % (0-2.0); EOS % 0.2 % (0-4.5); HEMATOCRIT 31.5 % (35.4-49); HEMOGLOBIN 10.1 GM/dL (11.7-16.9); LYMPH % 14.3 % (8-40); MCH 22.7 pg (25.7-33.7); MCHC 31.9 g/dl (32.0-35.9); MEAN CELL VOLUME 71.2 fl (80-96); MEAN PLT VOLUME 7.8 fl (7.5-11.1); MONO % 4.7 % (3.8-10.2); NEUT % 80.5 % (42.8-82.8); PLATELET COUNT 661 K/MM3 (134-434); RBC 4.43 M/mm3 (4.00-5.60); RDW 16.9 % (11.9-15.9); WHITE BLOOD COUNT 15.2 K/mm3 (4.0-10.0)
[2017-12-15] MEDS ORDERED: PT OWN MED DRAWER 7, Y5N ONE (10:10)
[2017-12-15] MEDS: ASPIRIN COATED 81 MG TABLET.EC PO SCH (10:14)
[2017-12-15] MEDS: PANTOPRAZOLE 40 MG TABLET (FP) PO SCH ×2 (10:14→22:02)
[2017-12-15] MEDS: amLODIPine BESYLATE 5 MG TABLET (FP) PO SCH (10:14)
[2017-12-15] MEDS: metoPROLOL SUCCINATE 25 MG TAB.SR.24H (FP) PO SCH (10:14)
[2017-12-15] MEDS: HEPARIN NA (PORCINE) 5,000 UNITS/ML 1ML VIAL SQ SCH ×2 (10:15→22:02)
[2017-12-15 10:16] LABS: ALBUMIN 2.5 g/dl (3.4-5.0); ANION GAP 7 (8-16); BLOOD UREA NITROGEN 14 mg/dL (7-18); CALCIUM 8.5 mg/dL (8.5-10.1); CHLORIDE 92 mmol/L (98-107); CO2 31 mmol/L (21-32); GLUCOSE,RANDOM 175 mg/dL (74-106); SODIUM 130 mmol/L (136-145)
[2017-12-15] MEDS: HYDROCHLOROTHIAZIDE 25 MG TABLET (FP) PO SCH (10:16)
[2017-12-15 10:19] LABS: ALK PHOS 123 U/L (45-117); BILIRUBIN,TOTAL 0.6 mg/dL (0.2-1.0); CREATININE 0.8 mg/dL (0.7-1.3); SGOT/AST 9 U/L (15-37); SGPT/ALT 11 U/L (12-78); TOT PROT 7.5 g/dl (6.4-8.2)
--- NOTE | 2017-12-15 14:32 | PN ---
Progress Note (short form) - Note Progress Note: Ortho Pt seen and examined s/p right knee aspiration. Pt feeling better Selected Entries 12/15/17 09:00 Temperature 98.6 F Pulse Rate 108 H Respiratory 20 Rate Blood Pressure 171/84 Laboratory Tests 12/15/17 09:30 WBC 15.2 H Hgb 10.1 L Hct 31.5 L Plt Count 661 H Laboratory Tests 12/14/17 13:55 Synovial WBC 910 Synovial RBC 17020 Synovial Neutrophils 42 Synovial Lymphocytes 27 Synovial Monocytes 28 Synovial Crystals Negative cultures neg + swelling but has decreased, decr erythema, decr ttp, incr rom nvi MRI + mmt, lmt, djd, and evidence of cellulitis a/p- Right knee cellulitis with mmt, lmt Improving with abx and aspiration would continue abx- ID f/u PT eval wbat may need knee arthroscopy in future however, given current infection/cellulitis , not recommended at the present time d/w Dr. Garcia
[2017-12-15] MEDS: morphine SULFATE 4 MG/ML VIAL IVPUSH PRN (15:04)
--- NOTE | 2017-12-15 17:35 | PN ---
Physical Exam: SUBJECTIVE: Patient seen and examined at the bedside. Feels like his right leg is not improving,+pain. + constipated OBJECTIVE: Pt seen and examined s/p right knee aspiration clinically right leg looks slightly improved since yesterday Vital Signs Period Temp Pulse Resp BP Sys/Mclaughlin Pulse Ox Last 24 Hr 97.8 F-100.3 F 101-109 20-20 141-171/75-84 94-95 GENERAL: The patient is awake, alert, and fully oriented, in no acute distress. HEAD: Normal with no signs of trauma. EYES: PERRL, extraocular movements intact, sclera anicteric, conjunctiva clear. No ptosis. ENT: Ears normal, nares patent, oropharynx clear without exudates, moist mucous membranes. NECK: Trachea midline, full range of motion, supple. LUNGS: Breath sounds equal, clear to auscultation bilaterally, no wheezes HEART: Regular rate and rhythm, S1, S2 without murmur, rub or gallop. ABDOMEN: Soft, nontender, nondistended, normoactive bowel sounds, no guarding, no rebound, no hepatosplenomegaly, no masses. EXTREMITIES: right leg edema, edematous right knee, negative for DVT NEUROLOGICAL Normal speech, gait not observed. PSYCH: Normal mood, normal affect. Laboratory Results - last 24 hr 12/14/17 12/14/17 12/15/17 17:04 21:23 06:44 WBC RBC Hgb Hct MCV MCH MCHC RDW Plt Count MPV Neutrophils % Lymphocytes % Monocytes % Eosinophils % Basophils % Sodium Potassium Chloride Carbon Dioxide Anion Gap BUN Creatinine Creat Clearance w eGFR POC Glucometer 203 222 150 Random Glucose Calcium Total Bilirubin AST ALT Alkaline Phosphatase Total Protein Albumin 12/15/17 12/15/17 12/15/17 09:30 09:30 12:38 WBC 15.2 H RBC 4.43 Hgb 10.1 L Hct 31.5 L MCV 71.2 L MCH 22.7 L MCHC 31.9 L RDW 16.9 H Plt Count 661 H MPV 7.8 Neutrophils % 80.5 Lymphocytes % 14.3 Monocytes % 4.7 Eosinophils % 0.2 Basophils % 0.3 Sodium 130 L Potassium 4.0 Chloride 92 L Carbon Dioxide 31 Anion Gap 7 L BUN 14 Creatinine 0.8 Creat Clearance w eGFR > 60 POC Glucometer 191 Random Glucose 175 H Calcium 8.5 Total Bilirubin 0.6 AST 9 L ALT 11 L D Alkaline Phosphatase 123 H Total Protein 7.5 Albumin 2.5 L 12/15/17 17:10 WBC RBC Hgb Hct MCV MCH MCHC RDW Plt Count MPV Neutrophils % Lymphocytes % Monocytes % Eosinophils % Basophils % Sodium Potassium Chloride Carbon Dioxide Anion Gap BUN Creatinine Creat Clearance w eGFR POC Glucometer 211 Random Glucose Calcium Total Bilirubin AST ALT Alkaline Phosphatase Total Protein Albumin Active Medications Generic Name Dose Route Start Last Admin Trade Name Freq PRN Reason Stop Dose Admin Acetaminophen 650 mg 12/11/17 11:53 12/15/17 12:44 Tylenol - PO 650 mg Q6H PRN Administration PAIN 1-4 Amlodipine Besylate 5 mg 12/11/17 10:00 12/15/17 10:14 Norvasc - PO 5 mg DAILY [facility] Administration Aspirin 81 mg 12/11/17 10:00 12/15/17 10:14 Ecotrin - PO 81 mg DAILY [facility] Administration Diphenhydramine HCl 25 mg 12/12/17 18:24 12/14/17 21:25 Benadryl - PO 25 mg HS PRN Administration INSOMNIA Heparin Sodium (Porcine) 5,000 unit 12/11/17 10:00 12/15/17 10:15 Heparin - SQ 5,000 unit BID [facility] Administration Hydrochlorothiazide 25 mg 12/11/17 10:00 12/15/17 10:16 Hctz - PO 25 mg BID [facility] Administration Insulin Aspart 1 vial 12/14/17 14:50 12/15/17 17:17 Novolog Vial Sliding Scale - SQ 6 units ACHS [facility] Administration Protocol Insulin Detemir 35 units 12/14/17 14:50 12/15/17 06:44 Levemir Vial SQ 35 units BID@0700,2200 [facility] Administration Metformin HCl 500 mg 12/11/17 07:00 12/15/17 17:17 Glucophage - PO 500 mg BIDAC [facility] Administration Metoprolol Succinate 25 mg 12/11/17 10:00 12/15/17 10:14 Toprol Xl - PO 25 mg DAILY [facility] Administration Morphine Sulfate 4 mg 12/14/17 12:25 12/15/17 15:04 Morphine Sulfate IVPUSH 4 mg Q4H PRN Administration PAIN LEVEL 7 - 10 Pantoprazole Sodium 40 mg 12/11/17 10:00 12/15/17 10:14 Protonix - PO 40 mg BID [facility] Administration ASSESSMENT/PLAN: Patient is a 57 year old male with a significant past medical history of hypertension, hld, diabetes mellitus and CAD. He presents to the ED on 2017 for evaluation of right lower extremity pain s/p mechanical fall to his right knee. He reports worsening pain to the right knee and then noticed worsening swelling to the right lower extremity with associated subjective fevers. He presented to his primary care provider for evaluation who referred him to the ED for admission and further evaluation. ID: Right leg cellulitis MRI of knee pending wbc 15.2 low grade fevers, tachycardia Unasyn stopped by ID Monitor off antibiotics as per ID s/p right knee aspiration Ortho consulted, notes reviewed Cardiac: Hypertension, chronic Chronic CHF BP stable Continue Toprol, Norvac, ASA 81mg Heme: Anemia, chronic Monitor with daily CBC Endocrine: Diabetes, chronic Elevated BGMs Increased Levemir to 35units BID Tightened sliding scale Renal: Hyponatremia, acute placed HCTZ on hold, received a.m. dose Renal consult if continues to down trend F.E.N. Fluids: tolerating PO Electrolytes: hypokalemia Nutrition: diabetic diet Prophy: DVT: SCDS GI: Protonix Disposition: full code Visit type - Emergency Visit Emergency Visit: Yes ED Registration Date: 12/10/17 Care time: The patient presented to the Emergency Department on the above date and was hospitalized for further evaluation of their emergent condition. - New Patient This patient is new to me today: No - Critical Care Critical Care patient: No - Discharge Referral Referred to [facility] Med P.C.: No
[2017-12-16] MEDS: morphine SULFATE 4 MG/ML VIAL IVPUSH PRN ×5 (05:51→23:01)
[2017-12-16] MEDS: INSULIN SLIDING SCALE (NOVOLOG) 1 VIAL SQ SCH ×4 (06:01→22:18)
[2017-12-16] MEDS: INSULIN (LEVEMIR) 100 UNITS/ML UNITS SQ SCH ×2 (06:02→22:18)
[2017-12-16] MEDS: metFORMIN HCL 500 MG TABLET (FP) PO SCH ×2 (06:02→17:39)
[2017-12-16] MEDS ORDERED: INSULIN (NOVOLOG) ASPART 100 UNITS/ML 10ML VIAL ONE ×3 (07:32→21:09)
[2017-12-16] MEDS ORDERED: INSULIN (LEVEMIR) 100 UNITS/ML UNITS SQ ONE (07:32)
[2017-12-16 08:01] LABS: BASO % 0.4 % (0-2.0); EOS % 0.1 % (0-4.5); HEMATOCRIT 30.1 % (35.4-49); HEMOGLOBIN 9.8 GM/dL (11.7-16.9); LYMPH % 15.3 % (8-40); MCH 23.1 pg (25.7-33.7); MCHC 32.4 g/dl (32.0-35.9); MEAN CELL VOLUME 71.3 fl (80-96); MEAN PLT VOLUME 8.1 fl (7.5-11.1); MONO % 5.2 % (3.8-10.2); PLATELET COUNT 647 K/MM3 (134-434); RBC 4.22 M/mm3 (4.00-5.60); RDW 16.7 % (11.9-15.9); WHITE BLOOD COUNT 12.9 K/mm3 (4.0-10.0)
[2017-12-16 08:33] LABS: CHLORIDE 92 mmol/L (98-107); POTASSIUM 4.2 mmol/L (3.5-5.1); SODIUM 134 mmol/L (136-145)
[2017-12-16 08:40] LABS: ALBUMIN 2.4 g/dl (3.4-5.0); ALK PHOS 110 U/L (45-117); ANION GAP 10 (8-16); BILIRUBIN,TOTAL 0.6 mg/dL (0.2-1.0); BLOOD UREA NITROGEN 16 mg/dL (7-18); CALCIUM 8.9 mg/dL (8.5-10.1); CO2 32 mmol/L (21-32); CREATININE 0.7 mg/dL (0.7-1.3); GLUCOSE,RANDOM 124 mg/dL (74-106); MAGNESIUM 2.4 mg/dL (1.8-2.4); SGOT/AST 13 U/L (15-37); SGPT/ALT 11 U/L (12-78); TOT PROT 7.2 g/dl (6.4-8.2)
--- NOTE | 2017-12-16 08:42 | PN ---
Progress Note (short form) - Note Progress Note: Ortho Pt seen and examined s/p right knee aspiration. Pt stated pain is worse today. Has been off abx for past 2 days Selected Entries 12/16/17 07:14 Temperature 98.8 F Pulse Rate 103 H Respiratory 20 Rate Blood Pressure 150/80 Laboratory Tests 12/16/17 06:30 WBC 12.9 H Hgb 9.8 L Hct 30.1 L Plt Count 647 H cultures neg + swelling but has decreased, decr erythema, + ttp, incr rom nvi MRI + mmt, lmt, djd, and evidence of cellulitis a/p- Right knee cellulitis with mmt, lmt ID f/u- consider restarting abx PT eval wbat may need knee arthroscopy in future however, given current infection/cellulitis , not recommended at the present time d/w Dr. Garcia
[2017-12-16] MEDS ORDERED: PT OWN MED DRAWER 7, Y5N ONE (09:12)
[2017-12-16] MEDS: PANTOPRAZOLE 40 MG TABLET (FP) PO SCH ×2 (09:16→22:17)
[2017-12-16] MEDS: ASPIRIN COATED 81 MG TABLET.EC PO SCH (09:16)
[2017-12-16] MEDS: amLODIPine BESYLATE 5 MG TABLET (FP) PO SCH (09:16)
[2017-12-16] MEDS: metoPROLOL SUCCINATE 25 MG TAB.SR.24H (FP) PO SCH (09:16)
[2017-12-16] MEDS: HEPARIN NA (PORCINE) 5,000 UNITS/ML 1ML VIAL SQ SCH ×2 (09:17→22:17)
--- NOTE | 2017-12-16 14:07 | PN ---
Progress Note, Physician History of Present Illness: still with lot of pain ortho tapped the knee - Current Medication List Current Medications: Active Medications Acetaminophen (Tylenol -) 650 mg PO Q6H PRN PRN Reason: PAIN 1-4 Last Admin: 12/15/17 22:02 Dose: 650 mg Amlodipine Besylate (Norvasc -) 5 mg PO DAILY [facility] Last Admin: 12/16/17 09:16 Dose: 5 mg Aspirin (Ecotrin -) 81 mg PO DAILY [facility] Last Admin: 12/16/17 09:16 Dose: 81 mg Diphenhydramine HCl (Benadryl -) 25 mg PO HS PRN PRN Reason: INSOMNIA Last Admin: 12/14/17 21:25 Dose: 25 mg Heparin Sodium (Porcine) (Heparin -) 5,000 unit SQ BID [facility] Last Admin: 12/16/17 09:17 Dose: 5,000 unit Hydrochlorothiazide (Hctz -) 25 mg PO BID [facility] Last Admin: 12/15/17 10:16 Dose: 25 mg Insulin Aspart (Novolog Vial Sliding Scale -) 1 vial SQ ACHS [facility] PRN Reason: Protocol Last Admin: 12/16/17 11:21 Dose: 6 units Insulin Detemir (Levemir Vial) 35 units SQ BID@0700,2200 [facility] Last Admin: 12/16/17 06:02 Dose: 35 units Metformin HCl (Glucophage -) 500 mg PO BIDAC [facility] Last Admin: 12/16/17 06:02 Dose: 500 mg Metoprolol Succinate (Toprol Xl -) 25 mg PO DAILY [facility] Last Admin: 12/16/17 09:16 Dose: 25 mg Morphine Sulfate (Morphine Sulfate) 4 mg IVPUSH Q4H PRN PRN Reason: PAIN LEVEL 7 - 10 Last Admin: 12/16/17 10:05 Dose: 4 mg Pantoprazole Sodium (Protonix -) 40 mg PO BID [facility] Last Admin: 12/16/17 09:16 Dose: 40 mg - Objective Vital Signs: Vital Signs Temperature 99.9 F H 12/16/17 13:21 Pulse Rate 96 H 12/16/17 13:21 Respiratory Rate 18 12/16/17 13:21 Blood Pressure 146/73 12/16/17 13:21 O2 Sat by Pulse Oximetry (%) 99 12/16/17 09:00 Constitutional: Yes: Calm, Mild Distress, Obese Cardiovascular: Yes: Regular Rate and Rhythm Respiratory: Yes: Regular, CTA Bilaterally Gastrointestinal: Yes: Normal Bowel Sounds, Soft Musculoskeletal: Yes: WNL Extremities: Yes: WNL Neurological: Yes: Alert, Oriented Psychiatric: Yes: Alert, Oriented Labs: CBC, BMP 12/16/17 06:30 12/16/17 06:30 INR, PTT INR 0.97 (0.82-1.09) 12/10/17 16:31 Assessment/Plan fall swelling of rt leg dm obesity leukocytosis plan await for fluid result of the tap rest continue current mgmt
--- NOTE | 2017-12-16 21:01 | PN ---
Progress Note, Physician History of Present Illness: Pt still w/ pain and swelling - Current Medication List Current Medications: Active Medications Acetaminophen (Tylenol -) 650 mg PO Q6H PRN PRN Reason: PAIN 1-4 Last Admin: 12/15/17 22:02 Dose: 650 mg Amlodipine Besylate (Norvasc -) 5 mg PO DAILY [facility] Last Admin: 12/16/17 09:16 Dose: 5 mg Aspirin (Ecotrin -) 81 mg PO DAILY [facility] Last Admin: 12/16/17 09:16 Dose: 81 mg Diphenhydramine HCl (Benadryl -) 25 mg PO HS PRN PRN Reason: INSOMNIA Last Admin: 12/14/17 21:25 Dose: 25 mg Heparin Sodium (Porcine) (Heparin -) 5,000 unit SQ BID [facility] Last Admin: 12/16/17 09:17 Dose: 5,000 unit Hydrochlorothiazide (Hctz -) 25 mg PO BID [facility] Last Admin: 12/15/17 10:16 Dose: 25 mg Ampicillin Sodium/Sulbactam (Sodium 3 gm/ Sodium Chloride) 100 mls @ 200 mls/ hr IVPB Q8H-IV [facility] Insulin Aspart (Novolog Vial Sliding Scale -) 1 vial SQ ACHS [facility] PRN Reason: Protocol Last Admin: 12/16/17 17:39 Dose: 6 units Insulin Detemir (Levemir Vial) 35 units SQ BID@0700,2200 [facility] Last Admin: 12/16/17 06:02 Dose: 35 units Metformin HCl (Glucophage -) 500 mg PO BIDAC [facility] Last Admin: 12/16/17 17:39 Dose: 500 mg Metoprolol Succinate (Toprol Xl -) 25 mg PO DAILY [facility] Last Admin: 12/16/17 09:16 Dose: 25 mg Morphine Sulfate (Morphine Sulfate) 4 mg IVPUSH Q4H PRN PRN Reason: PAIN LEVEL 7 - 10 Last Admin: 12/16/17 18:30 Dose: 4 mg Pantoprazole Sodium (Protonix -) 40 mg PO BID [facility] Last Admin: 12/16/17 09:16 Dose: 40 mg - Objective Vital Signs: Vital Signs Temperature 98.6 F 12/16/17 17:38 Pulse Rate 101 H 12/16/17 17:38 Respiratory Rate 18 12/16/17 17:38 Blood Pressure 147/83 12/16/17 17:38 O2 Sat by Pulse Oximetry (%) 99 12/16/17 09:00 Neck: Yes: WNL, Supple Cardiovascular: Yes: WNL, Regular Rate and Rhythm Respiratory: Yes: WNL, Regular, CTA Bilaterally Gastrointestinal: Yes: WNL, Normal Bowel Sounds, Soft Extremities: Yes: Other (RLE w/ swelling slight erythema around knee) Labs: CBC, BMP 12/16/17 06:30 12/16/17 06:30 INR, PTT INR 0.97 (0.82-1.09) 12/10/17 16:31 Problem List - Problems (1) Cellulitis of right leg Assessment/Plan: Cont IV unasyn Will d/w ID Check wbc in am S/P tap of knee Code(s): L03.115 - CELLULITIS OF RIGHT LOWER LIMB (2) Anemia Assessment/Plan: Due to chronic dz Monitor H/H Code(s): D64.9 - ANEMIA, UNSPECIFIED (3) Diabetes Assessment/Plan: Cont metformin/levemir Cont sliding scale w/ coverage Code(s): E11.9 - TYPE 2 DIABETES MELLITUS WITHOUT COMPLICATIONS Qualifiers: Diabetes mellitus type: other specified (including LASHAY) Diabetes mellitus exterminator insulin use: unspecified fpc insulin use status Diabetes mellitus complication status: with hyperglycemia Qualified Code(s): E13.65 - Other specified diabetes mellitus with hyperglycemia (4) HTN (hypertension) Assessment/Plan: BP stable Cont toprol/norvsac/hctz Code(s): I10 - ESSENTIAL (PRIMARY) HYPERTENSION (5) Chronic CHF Code(s): I50.9 - HEART FAILURE, UNSPECIFIED (6) Sepsis Code(s): A41.9 - SEPSIS, UNSPECIFIED ORGANISM Qualifiers: Sepsis type: sepsis due to unspecified organism Qualified Code(s): A41.9 - Sepsis, unspecified organism (7) CKD (chronic kidney disease) Code(s): N18.9 - CHRONIC KIDNEY DISEASE, UNSPECIFIED
[2017-12-16] MEDS: AMPICILLIN NA/SULBACTAM NA 3 GM in SODIUM CHLORIDE 100 ML IVPB SCH (22:15)
[2017-12-16] MEDS: diphenhydrAMINE HCL 25 MG CAPSULE (FP) PO PRN (22:15)
[2017-12-16] MEDS: ACETAMINOPHEN 325 MG TABLET (FP) PO PRN (22:15)
[2017-12-17] MEDS: AMPICILLIN NA/SULBACTAM NA 3 GM in SODIUM CHLORIDE 100 ML IVPB SCH ×3 (03:00→17:15)
[2017-12-17] MEDS: INSULIN SLIDING SCALE (NOVOLOG) 1 VIAL SQ SCH ×4 (06:14→22:10)
[2017-12-17] MEDS: INSULIN (LEVEMIR) 100 UNITS/ML UNITS SQ SCH ×2 (06:23→22:14)
[2017-12-17] MEDS: metFORMIN HCL 500 MG TABLET (FP) PO SCH ×2 (06:23→17:15)
[2017-12-17] MEDS ORDERED: INSULIN (NOVOLOG) ASPART 100 UNITS/ML 10ML VIAL ONE ×2 (07:00→11:52)
[2017-12-17] MEDS ORDERED: INSULIN (LEVEMIR) 100 UNITS/ML UNITS SQ ONE (07:00)
[2017-12-17 08:06] LABS: BASO % 0.5 % (0-2.0); EOS % 0.5 % (0-4.5); HEMOGLOBIN 8.8 GM/dL (11.7-16.9); LYMPH % 15.2 % (8-40); MCH 23.5 pg (25.7-33.7); MCHC 32.6 g/dl (32.0-35.9); MEAN CELL VOLUME 72.2 fl (80-96); MEAN PLT VOLUME 7.8 fl (7.5-11.1); MONO % 4.8 % (3.8-10.2); PLATELET COUNT 694 K/MM3 (134-434); RBC 3.74 M/mm3 (4.00-5.60); RDW 16.5 % (11.9-15.9); WHITE BLOOD COUNT 13.8 K/mm3 (4.0-10.0)
[2017-12-17 09:12] LABS: ALBUMIN 2.3 g/dl (3.4-5.0); ANION GAP 11 (8-16); BLOOD UREA NITROGEN 15 mg/dL (7-18); CALCIUM 8.5 mg/dL (8.5-10.1); CHLORIDE 96 mmol/L (98-107); CO2 29 mmol/L (21-32); GLUCOSE,RANDOM 114 mg/dL (74-106); POTASSIUM 4.2 mmol/L (3.5-5.1); SODIUM 136 mmol/L (136-145)
[2017-12-17 09:15] LABS: ALK PHOS 109 U/L (45-117); BILIRUBIN,TOTAL 0.4 mg/dL (0.2-1.0); CREATININE 0.7 mg/dL (0.7-1.3); SGOT/AST 10 U/L (15-37); SGPT/ALT 11 U/L (12-78); TOT PROT 7.1 g/dl (6.4-8.2)
[2017-12-17] MEDS: HEPARIN NA (PORCINE) 5,000 UNITS/ML 1ML VIAL SQ SCH ×2 (09:36→22:16)
[2017-12-17] MEDS: metoPROLOL SUCCINATE 25 MG TAB.SR.24H (FP) PO SCH (09:37)
[2017-12-17] MEDS: ASPIRIN COATED 81 MG TABLET.EC PO SCH (09:37)
[2017-12-17] MEDS: PANTOPRAZOLE 40 MG TABLET (FP) PO SCH ×2 (09:37→22:19)
[2017-12-17] MEDS: amLODIPine BESYLATE 5 MG TABLET (FP) PO SCH (09:37)
[2017-12-17] MEDS: morphine SULFATE 4 MG/ML VIAL IVPUSH PRN (09:53)
--- NOTE | 2017-12-17 13:22 | PN ---
Progress Note, Physician History of Present Illness: leg still with swelling pain in the knee joint wbc marginally up - Current Medication List Current Medications: Active Medications Acetaminophen (Tylenol -) 650 mg PO Q6H PRN PRN Reason: PAIN 1-4 Last Admin: 12/16/17 22:15 Dose: 650 mg Amlodipine Besylate (Norvasc -) 5 mg PO DAILY [facility] Last Admin: 12/17/17 09:37 Dose: 5 mg Aspirin (Ecotrin -) 81 mg PO DAILY [facility] Last Admin: 12/17/17 09:37 Dose: 81 mg Diphenhydramine HCl (Benadryl -) 25 mg PO HS PRN PRN Reason: INSOMNIA Last Admin: 12/16/17 22:15 Dose: 25 mg Heparin Sodium (Porcine) (Heparin -) 5,000 unit SQ BID [facility] Last Admin: 12/17/17 09:36 Dose: 5,000 unit Hydrochlorothiazide (Hctz -) 25 mg PO BID [facility] Last Admin: 12/15/17 10:16 Dose: 25 mg Ampicillin Sodium/Sulbactam (Sodium 3 gm/ Sodium Chloride) 100 mls @ 200 mls/ hr IVPB Q8H-IV [facility] Last Admin: 12/17/17 09:37 Dose: 200 mls/hr Insulin Aspart (Novolog Vial Sliding Scale -) 1 vial SQ ACHS [facility] PRN Reason: Protocol Last Admin: 12/17/17 11:56 Dose: 4 units Insulin Detemir (Levemir Vial) 35 units SQ BID@0700,2200 [facility] Last Admin: 12/17/17 06:23 Dose: 35 units Metformin HCl (Glucophage -) 500 mg PO BIDAC [facility] Last Admin: 12/17/17 06:23 Dose: 500 mg Metoprolol Succinate (Toprol Xl -) 25 mg PO DAILY [facility] Last Admin: 12/17/17 09:37 Dose: 25 mg Pantoprazole Sodium (Protonix -) 40 mg PO BID [facility] Last Admin: 12/17/17 09:37 Dose: 40 mg - Objective Vital Signs: Vital Signs Temperature 98.1 F 12/17/17 10:00 Pulse Rate 92 H 12/17/17 10:00 Respiratory Rate 20 12/17/17 10:00 Blood Pressure 145/79 12/17/17 10:00 O2 Sat by Pulse Oximetry (%) 100 12/17/17 09:00 Constitutional: Yes: No Distress, Calm, Obese Cardiovascular: Yes: Regular Rate and Rhythm Respiratory: Yes: Regular, CTA Bilaterally Gastrointestinal: Yes: Normal Bowel Sounds, Soft Musculoskeletal: Yes: WNL Extremities: Yes: WNL Neurological: Yes: Alert, Oriented Psychiatric: Yes: Alert, Oriented Labs: CBC, BMP 12/17/17 06:30 12/17/17 06:30 INR, PTT INR 0.97 (0.82-1.09) 12/10/17 16:31 Assessment/Plan fall swelling of rt leg dm obesity leukocytosis plan ortho wants patient to be on abx patient started on unasyn continue current mgmt rest as per the team
--- NOTE | 2017-12-17 15:38 | PN ---
Progress Note (short form) - Note Progress Note: Pt seen and examined. He states he is feeling better, right knee with less pain , better ROM, less tender, less erythema. No drainage Right knee and lower leg still swollen, still mildly tender. Still stiff with decreased ROM Rec No surgical intervention needed today Will follow Con't with IV antibiotics P.T., ROM and ambulation as tolerated, WBAT
[2017-12-17] MEDS ORDERED: PT OWN MED DRAWER 7, Y5N ONE (16:48)
[2017-12-17] MEDS: ACETAMINOPHEN 325 MG TABLET (FP) PO PRN ×2 (17:29→23:53)
--- NOTE | 2017-12-17 22:27 | PN ---
Progress Note, Physician History of Present Illness: Pt still w/ pain especially on ambulating - Current Medication List Current Medications: Active Medications Acetaminophen (Tylenol -) 650 mg PO Q6H PRN PRN Reason: PAIN 1-4 Last Admin: 12/17/17 17:29 Dose: 650 mg Amlodipine Besylate (Norvasc -) 5 mg PO DAILY [facility] Last Admin: 12/17/17 09:37 Dose: 5 mg Aspirin (Ecotrin -) 81 mg PO DAILY [facility] Last Admin: 12/17/17 09:37 Dose: 81 mg Diphenhydramine HCl (Benadryl -) 25 mg PO HS PRN PRN Reason: INSOMNIA Last Admin: 12/16/17 22:15 Dose: 25 mg Heparin Sodium (Porcine) (Heparin -) 5,000 unit SQ BID [facility] Last Admin: 12/17/17 22:16 Dose: 5,000 unit Hydrochlorothiazide (Hctz -) 25 mg PO BID [facility] Last Admin: 12/15/17 10:16 Dose: 25 mg Ampicillin Sodium/Sulbactam (Sodium 3 gm/ Sodium Chloride) 100 mls @ 200 mls/ hr IVPB Q8H-IV [facility] Last Admin: 12/17/17 17:15 Dose: 200 mls/hr Insulin Aspart (Novolog Vial Sliding Scale -) 1 vial SQ ACHS [facility] PRN Reason: Protocol Last Admin: 12/17/17 22:10 Dose: 6 units Insulin Detemir (Levemir Vial) 35 units SQ BID@0700,2200 [facility] Last Admin: 12/17/17 22:14 Dose: 35 units Metformin HCl (Glucophage -) 500 mg PO BIDAC [facility] Last Admin: 12/17/17 17:15 Dose: 500 mg Metoprolol Succinate (Toprol Xl -) 25 mg PO DAILY [facility] Last Admin: 12/17/17 09:37 Dose: 25 mg Pantoprazole Sodium (Protonix -) 40 mg PO BID [facility] Last Admin: 12/17/17 22:19 Dose: 40 mg - Objective Vital Signs: Vital Signs Temperature 99.1 F 12/17/17 18:05 Pulse Rate 93 H 12/17/17 18:05 Respiratory Rate 20 12/17/17 18:05 Blood Pressure 155/86 12/17/17 18:05 O2 Sat by Pulse Oximetry (%) 100 12/17/17 09:00 Constitutional: Yes: Well Nourished Neck: Yes: WNL, Supple Cardiovascular: Yes: WNL, Regular Rate and Rhythm Respiratory: Yes: WNL, Regular, CTA Bilaterally Gastrointestinal: Yes: WNL, Normal Bowel Sounds, Soft Extremities: Yes: Other ((+) swelling RLE still w/ some erythema/warmth) Labs: CBC, BMP 12/17/17 06:30 12/17/17 06:30 INR, PTT INR 0.97 (0.82-1.09) 12/10/17 16:31 Problem List - Problems (1) Cellulitis of right leg Assessment/Plan: Cont IV unasyn Check wbc in am S/P tap/aspiration of rt knee Code(s): L03.115 - CELLULITIS OF RIGHT LOWER LIMB (2) Anemia Code(s): D64.9 - ANEMIA, UNSPECIFIED (3) Diabetes Code(s): E11.9 - TYPE 2 DIABETES MELLITUS WITHOUT COMPLICATIONS Qualifiers: Diabetes mellitus type: other specified (including LASHAY) Diabetes mellitus halfway insulin use: unspecified halfway insulin use status Diabetes mellitus complication status: with hyperglycemia Qualified Code(s): E13.65 - Other specified diabetes mellitus with hyperglycemia (4) HTN (hypertension) Code(s): I10 - ESSENTIAL (PRIMARY) HYPERTENSION (5) Chronic CHF Code(s): I50.9 - HEART FAILURE, UNSPECIFIED (6) Sepsis Code(s): A41.9 - SEPSIS, UNSPECIFIED ORGANISM Qualifiers: Sepsis type: sepsis due to unspecified organism Qualified Code(s): A41.9 - Sepsis, unspecified organism (7) CKD (chronic kidney disease) Code(s): N18.9 - CHRONIC KIDNEY DISEASE, UNSPECIFIED
[2017-12-17] MEDS: diphenhydrAMINE HCL 25 MG CAPSULE (FP) PO PRN (23:53)
[2017-12-18] MEDS ORDERED: PT OWN MED DRAWER 7, Y5N ONE ×3 (01:36→17:39)
[2017-12-18] MEDS: AMPICILLIN NA/SULBACTAM NA 3 GM in SODIUM CHLORIDE 100 ML IVPB SCH ×3 (01:43→17:42)
[2017-12-18] MEDS: INSULIN SLIDING SCALE (NOVOLOG) 1 VIAL SQ SCH ×4 (06:34→22:41)
[2017-12-18] MEDS: INSULIN (LEVEMIR) 100 UNITS/ML UNITS SQ SCH ×2 (06:34→22:41)
[2017-12-18 09:20] LABS: BASO % 0.8 % (0-2.0); EOS % 0.6 % (0-4.5); HEMATOCRIT 28.4 % (35.4-49); HEMOGLOBIN 9.2 GM/dL (11.7-16.9); LYMPH % 20.2 % (8-40); MCH 23.5 pg (25.7-33.7); MCHC 32.4 g/dl (32.0-35.9); MEAN CELL VOLUME 72.6 fl (80-96); MEAN PLT VOLUME 8.2 fl (7.5-11.1); MONO % 5.1 % (3.8-10.2); NEUT % 73.3 % (42.8-82.8); PLATELET COUNT 727 K/MM3 (134-434); RBC 3.91 M/mm3 (4.00-5.60); RDW 16.9 % (11.9-15.9); WHITE BLOOD COUNT 9.9 K/mm3 (4.0-10.0)
--- NOTE | 2017-12-18 09:20 | PN ---
Progress Note (short form) - Note Progress Note: Ortho Pt seen and examined. feeling better Selected Entries 12/18/17 06:00 Temperature 97.3 F L Pulse Rate 93 H Respiratory 20 Rate Blood Pressure 167/87 Laboratory Tests 12/18/17 07:00 WBC Pending Hgb Pending Hct Pending Plt Count Pending + swelling but has decreased, decr erythema, + ttp, incr rom nvi MRI + mmt, lmt, djd, and evidence of cellulitis a/p- Right knee cellulitis with mmt, lmt PT wbat continue abx as per ID d/c planning
[2017-12-18] MEDS: ASPIRIN COATED 81 MG TABLET.EC PO SCH (09:32)
[2017-12-18] MEDS: HEPARIN NA (PORCINE) 5,000 UNITS/ML 1ML VIAL SQ SCH ×2 (09:32→22:39)
[2017-12-18] MEDS: amLODIPine BESYLATE 5 MG TABLET (FP) PO SCH (09:32)
[2017-12-18] MEDS: morphine SULFATE 4 MG/ML VIAL IVPUSH PRN ×3 (09:32→22:45)
[2017-12-18] MEDS: PANTOPRAZOLE 40 MG TABLET (FP) PO SCH ×2 (09:32→22:43)
[2017-12-18] MEDS: metoPROLOL SUCCINATE 25 MG TAB.SR.24H (FP) PO SCH (09:32)
[2017-12-18 10:06] LABS: CHLORIDE 99 mmol/L (98-107); POTASSIUM 4.6 mmol/L (3.5-5.1); SODIUM 137 mmol/L (136-145)
[2017-12-18 10:29] LABS: ALBUMIN 2.4 g/dl (3.4-5.0); ALK PHOS 113 U/L (45-117); ANION GAP 11 (8-16); BILIRUBIN,TOTAL 0.3 mg/dL (0.2-1.0); BLOOD UREA NITROGEN 11 mg/dL (7-18); CALCIUM 8.6 mg/dL (8.5-10.1); CO2 27 mmol/L (21-32); CREATININE 0.6 mg/dL (0.7-1.3); GLUCOSE,RANDOM 127 mg/dL (74-106); SGOT/AST 11 U/L (15-37); SGPT/ALT 12 U/L (12-78); TOT PROT 7.1 g/dl (6.4-8.2)
[2017-12-18] MEDS ORDERED: INSULIN (NOVOLOG) ASPART 100 UNITS/ML 10ML VIAL ONE (12:10)
--- NOTE | 2017-12-18 12:57 | PN ---
Progress Note, Physician History of Present Illness: patient stable doing better pain improving - Current Medication List Current Medications: Active Medications Acetaminophen (Tylenol -) 650 mg PO Q6H PRN PRN Reason: PAIN 1-4 Last Admin: 12/17/17 23:53 Dose: 650 mg Amlodipine Besylate (Norvasc -) 5 mg PO DAILY [facility] Last Admin: 12/18/17 09:32 Dose: 5 mg Aspirin (Ecotrin -) 81 mg PO DAILY [facility] Last Admin: 12/18/17 09:32 Dose: 81 mg Diphenhydramine HCl (Benadryl -) 25 mg PO HS PRN PRN Reason: INSOMNIA Last Admin: 12/17/17 23:53 Dose: 25 mg Heparin Sodium (Porcine) (Heparin -) 5,000 unit SQ BID [facility] Last Admin: 12/18/17 09:32 Dose: 5,000 unit Hydrochlorothiazide (Hctz -) 25 mg PO BID [facility] Last Admin: 12/15/17 10:16 Dose: 25 mg Ampicillin Sodium/Sulbactam (Sodium 3 gm/ Sodium Chloride) 100 mls @ 200 mls/ hr IVPB Q8H-IV [facility] Last Admin: 12/18/17 09:31 Dose: 200 mls/hr Insulin Aspart (Novolog Vial Sliding Scale -) 1 vial SQ ACHS [facility] PRN Reason: Protocol Last Admin: 12/18/17 12:12 Dose: 4 units Insulin Detemir (Levemir Vial) 35 units SQ BID@0700,2200 [facility] Last Admin: 12/18/17 06:34 Dose: 35 units Metoprolol Succinate (Toprol Xl -) 25 mg PO DAILY [facility] Last Admin: 12/18/17 09:32 Dose: 25 mg Morphine Sulfate (Morphine Sulfate) 4 mg IVPUSH Q6H PRN PRN Reason: PAIN LEVEL 6-10 Last Admin: 12/18/17 09:32 Dose: 4 mg Pantoprazole Sodium (Protonix -) 40 mg PO BID [facility] Last Admin: 12/18/17 09:32 Dose: 40 mg - Objective Vital Signs: Vital Signs Temperature 98.1 F 12/18/17 09:54 Pulse Rate 98 H 12/18/17 09:54 Respiratory Rate 18 12/18/17 09:54 Blood Pressure 176/82 12/18/17 09:54 O2 Sat by Pulse Oximetry (%) 100 12/18/17 09:00 Constitutional: Yes: No Distress, Calm Cardiovascular: Yes: Regular Rate and Rhythm Respiratory: Yes: Regular, CTA Bilaterally Gastrointestinal: Yes: Normal Bowel Sounds, Soft Musculoskeletal: Yes: Other Extremities: Yes: Other Neurological: Yes: Alert, Oriented Psychiatric: Yes: Alert, Oriented Labs: CBC, BMP 12/18/17 07:00 12/18/17 07:00 INR, PTT INR 0.97 (0.82-1.09) 12/10/17 16:31 Assessment/Plan fall swelling of rt leg dm obesity leukocytosis plan wbc has normalized will switch to oral tomorrow physio rest as per the team
--- NOTE | 2017-12-18 23:52 | PN ---
Progress Note, Physician - Current Medication List Current Medications: Active Medications Acetaminophen (Tylenol -) 650 mg PO Q6H PRN PRN Reason: PAIN 1-4 Last Admin: 12/17/17 23:53 Dose: 650 mg Amlodipine Besylate (Norvasc -) 5 mg PO DAILY [facility] Last Admin: 12/18/17 09:32 Dose: 5 mg Aspirin (Ecotrin -) 81 mg PO DAILY [facility] Last Admin: 12/18/17 09:32 Dose: 81 mg Diphenhydramine HCl (Benadryl -) 25 mg PO HS PRN PRN Reason: INSOMNIA Last Admin: 12/17/17 23:53 Dose: 25 mg Heparin Sodium (Porcine) (Heparin -) 5,000 unit SQ BID [facility] Last Admin: 12/18/17 22:39 Dose: 5,000 unit Hydrochlorothiazide (Hctz -) 25 mg PO BID [facility] Last Admin: 12/15/17 10:16 Dose: 25 mg Ampicillin Sodium/Sulbactam (Sodium 3 gm/ Sodium Chloride) 100 mls @ 200 mls/ hr IVPB Q8H-IV [facility] Last Admin: 12/18/17 17:42 Dose: 200 mls/hr Insulin Aspart (Novolog Vial Sliding Scale -) 1 vial SQ ACHS [facility] PRN Reason: Protocol Last Admin: 12/18/17 22:41 Dose: 6 units Insulin Detemir (Levemir Vial) 35 units SQ BID@0700,2200 [facility] Last Admin: 12/18/17 22:41 Dose: 35 units Metoprolol Succinate (Toprol Xl -) 25 mg PO DAILY [facility] Last Admin: 12/18/17 09:32 Dose: 25 mg Morphine Sulfate (Morphine Sulfate) 4 mg IVPUSH Q6H PRN PRN Reason: PAIN LEVEL 6-10 Last Admin: 12/18/17 22:45 Dose: 4 mg Pantoprazole Sodium (Protonix -) 40 mg PO BID [facility] Last Admin: 12/18/17 22:43 Dose: 40 mg - Objective Vital Signs: Vital Signs Temperature 98.8 F 12/18/17 17:25 Pulse Rate 81 12/18/17 17:25 Respiratory Rate 18 12/18/17 17:25 Blood Pressure 154/91 12/18/17 17:25 O2 Sat by Pulse Oximetry (%) 100 12/18/17 09:00 Labs: CBC, BMP 12/18/17 07:00 12/18/17 07:00 INR, PTT INR 0.97 (0.82-1.09) 12/10/17 16:31 Problem List - Problems (1) Cellulitis of right leg Code(s): L03.115 - CELLULITIS OF RIGHT LOWER LIMB (2) Anemia Code(s): D64.9 - ANEMIA, UNSPECIFIED (3) Diabetes Code(s): E11.9 - TYPE 2 DIABETES MELLITUS WITHOUT COMPLICATIONS Qualifiers: Diabetes mellitus type: other specified (including LASHAY) Diabetes mellitus detention insulin use: unspecified detention insulin use status Diabetes mellitus complication status: with hyperglycemia Qualified Code(s): E13.65 - Other specified diabetes mellitus with hyperglycemia (4) HTN (hypertension) Code(s): I10 - ESSENTIAL (PRIMARY) HYPERTENSION (5) Chronic CHF Code(s): I50.9 - HEART FAILURE, UNSPECIFIED (6) Sepsis Code(s): A41.9 - SEPSIS, UNSPECIFIED ORGANISM Qualifiers: Sepsis type: sepsis due to unspecified organism Qualified Code(s): A41.9 - Sepsis, unspecified organism (7) CKD (chronic kidney disease) Code(s): N18.9 - CHRONIC KIDNEY DISEASE, UNSPECIFIED
[2017-12-19] MEDS ORDERED: PT OWN MED DRAWER 7, Y5N ONE ×2 (02:01→09:15)
[2017-12-19] MEDS: AMPICILLIN NA/SULBACTAM NA 3 GM in SODIUM CHLORIDE 100 ML IVPB SCH ×2 (02:15→09:24)
[2017-12-19] MEDS: diphenhydrAMINE HCL 25 MG CAPSULE (FP) PO PRN (02:21)
[2017-12-19] MEDS: INSULIN (LEVEMIR) 100 UNITS/ML UNITS SQ SCH (06:13)
[2017-12-19] MEDS: INSULIN SLIDING SCALE (NOVOLOG) 1 VIAL SQ SCH ×3 (06:14→18:50)
[2017-12-19] MEDS: morphine SULFATE 4 MG/ML VIAL IVPUSH PRN ×2 (08:41→15:27)
[2017-12-19] MEDS: ASPIRIN COATED 81 MG TABLET.EC PO SCH (09:24)
[2017-12-19] MEDS: HYDROCHLOROTHIAZIDE 25 MG TABLET (FP) PO SCH (09:24)
[2017-12-19] MEDS: PANTOPRAZOLE 40 MG TABLET (FP) PO SCH (09:24)
[2017-12-19] MEDS: amLODIPine BESYLATE 5 MG TABLET (FP) PO SCH (09:24)
[2017-12-19] MEDS: metoPROLOL SUCCINATE 25 MG TAB.SR.24H (FP) PO SCH (09:24)
[2017-12-19] MEDS: HEPARIN NA (PORCINE) 5,000 UNITS/ML 1ML VIAL SQ SCH (09:25)
--- NOTE | 2017-12-19 09:27 | PN ---
Progress Note (short form) - Note Progress Note: Pt seen and examined. He states his right knee is much improved, less pain, better ROM, less swelling, he can ambulate, less erythema. Overall right knee and leg improved. No surgery needed at this time. Can DC from an orthopedic pov
[2017-12-19 14:30] VITALS: BP 148/84; PULSE 80; TEMP 98.3
--- NOTE | 2017-12-19 15:17 | PN ---
Progress Note, Physician History of Present Illness: stable leg improving - Current Medication List Current Medications: Active Medications Acetaminophen (Tylenol -) 650 mg PO Q6H PRN PRN Reason: PAIN 1-4 Last Admin: 12/17/17 23:53 Dose: 650 mg Amlodipine Besylate (Norvasc -) 5 mg PO DAILY [facility] Last Admin: 12/19/17 09:24 Dose: 5 mg Aspirin (Ecotrin -) 81 mg PO DAILY [facility] Last Admin: 12/19/17 09:24 Dose: 81 mg Diphenhydramine HCl (Benadryl -) 25 mg PO HS PRN PRN Reason: INSOMNIA Last Admin: 12/19/17 02:21 Dose: 25 mg Heparin Sodium (Porcine) (Heparin -) 5,000 unit SQ BID [facility] Last Admin: 12/19/17 09:25 Dose: 5,000 unit Hydrochlorothiazide (Hctz -) 25 mg PO BID [facility] Last Admin: 12/19/17 09:24 Dose: 25 mg Ampicillin Sodium/Sulbactam (Sodium 3 gm/ Sodium Chloride) 100 mls @ 200 mls/ hr IVPB Q8H-IV [facility] Last Admin: 12/19/17 09:24 Dose: 200 mls/hr Insulin Aspart (Novolog Vial Sliding Scale -) 1 vial SQ ACHS [facility] PRN Reason: Protocol Last Admin: 12/19/17 12:36 Dose: 8 units Insulin Detemir (Levemir Vial) 35 units SQ BID@0700,2200 [facility] Last Admin: 12/19/17 06:13 Dose: 35 units Metoprolol Succinate (Toprol Xl -) 25 mg PO DAILY [facility] Last Admin: 12/19/17 09:24 Dose: 25 mg Morphine Sulfate (Morphine Sulfate) 4 mg IVPUSH Q6H PRN PRN Reason: PAIN LEVEL 6-10 Last Admin: 12/19/17 08:41 Dose: 4 mg Pantoprazole Sodium (Protonix -) 40 mg PO BID [facility] Last Admin: 12/19/17 09:24 Dose: 40 mg - Objective Vital Signs: Vital Signs Temperature 98.3 F 12/19/17 14:28 Pulse Rate 80 12/19/17 14:28 Respiratory Rate 18 12/19/17 14:28 Blood Pressure 148/84 12/19/17 14:28 O2 Sat by Pulse Oximetry (%) 100 12/19/17 09:00 Constitutional: Yes: No Distress, Calm, Obese Cardiovascular: Yes: Regular Rate and Rhythm Respiratory: Yes: Regular, CTA Bilaterally Gastrointestinal: Yes: Normal Bowel Sounds, Soft Musculoskeletal: Yes: WNL Extremities: Yes: Other Neurological: Yes: Alert, Oriented Psychiatric: Yes: Alert Labs: CBC, BMP 12/18/17 07:00 12/18/17 07:00 INR, PTT INR 0.97 (0.82-1.09) 12/10/17 16:31 Assessment/Plan fall swelling of rt leg dm obesity leukocytosis plan wbc has normalized will stop abx and monitor physio rest as per the team
--- NOTE | 2017-12-19 22:19 | DS ---
Physical Examination Vital Signs: Vital Signs Temperature 98.3 F 12/19/17 14:28 Pulse Rate 80 12/19/17 14:28 Respiratory Rate 18 12/19/17 14:28 Blood Pressure 148/84 12/19/17 14:28 O2 Sat by Pulse Oximetry (%) 100 12/19/17 09:00 Constitutional: Yes: No Distress Cardiovascular: Yes: Regular Rate and Rhythm Respiratory: Yes: Regular, CTA Bilaterally Gastrointestinal: Yes: Normal Bowel Sounds, Soft Extremities: Yes: Other Labs: CBC, BMP 12/18/17 07:00 12/18/17 07:00 Discharge Summary Reason For Visit: EDEMA RIGHT LOWER EXTREMITY; CELLULITIS; SEPSIS Anemia of Chronic Disease Right Lower Extremity Cellulitis Hospital Course: 57 y/o m w/ h/o ulcers, HTN, HLD, CAD, and diabetes c/o right leg pain. He had fell on his right knee 2 days ago wc followed with right lower extremity swelling and worsening pain. Associated w/ fever. After a visit to his PCP (Dr. Becerra), he was prompted to visit the ED for further evaluation of RT LE cellulitis. During his course of stay his wbc were found elevated, he was started on abx and improved significantly. Condition: Good - Instructions Diet, Activity, Other Instructions: 2 gram sodium and low cholesterol diet See Dr Becerra in 1 week or if symptoms return or worsen go directly to the emergency room Disposition: HOME - Home Medications Comprehensive Discharge Medication List: Ambulatory Orders Aspirin Coated [Ecotrin -] 81 mg PO DAILY #30 tablet.ec 04/25/16 Insulin (Levemir) [Levemir Vial] 30 units SQ BID 04/28/16 Amlodipine Besylate [Norvasc -] 5 mg PO DAILY 02/15/17 Esomeprazole Magnesium 40 mg PO BID 02/15/17 Hydrochlorothiazide [Hctz -] 25 mg PO BID 02/15/17 Metoprolol Succinate [Toprol XL -] 25 mg PO DAILY 02/15/17 metFORMIN HCL [Glucophage -] 500 mg PO BID 02/15/17 Pantoprazole Sodium [Protonix -] 40 mg PO BID #30 tab 05/14/17 Becaplermin [Regranex] 15 gm TP DAILY #1 gel..gram. 09/10/17 Collagenase Clostridium Hist. [Santyl] 1 applic TP DAILY #90 oint...g. 09/10/17 Cephalexin [Keflex] 500 mg PO TID #30 capsule 12/19/17 Naproxen [Naprosyn] 500 mg PO BID #60 tablet 12/19/17
== END 2017-12-19 18:43 | disposition home or self-care (01) | DRG 383 ==
LOC: JER 15:55 → JERBED 18:27 → J8W 21:13
PROVIDERS: ADMIT Internal Medicine; ATTEND Internal Medicine
DX: L03.115 Cellulitis of right lower limb (principal); D64.9 Anemia, unspecified; I50.9 Heart failure, unspecified; I13.0 Hypertensive heart and chronic kidney disease with heart failure and stage 1 through stage 4 chronic kidney disease, or unspecified chronic kidney disease; N18.9 Chronic kidney disease, unspecified; E78.5 Hyperlipidemia, unspecified; I25.10 Atherosclerotic heart disease of native coronary artery without angina pectoris; D72.829 Elevated white blood cell count, unspecified; E66.9 Obesity, unspecified; Z68.37 Body mass index [BMI] 37.0-37.9, adult; E11.22 Type 2 diabetes mellitus with diabetic chronic kidney disease; Z87.891 Personal history of nicotine dependence; E87.6 Hypokalemia; E87.1 Hypo-osmolality and hyponatremia; K59.00 Constipation, unspecified
CPT/HCPCS: 36415; 71045-TC-FY; 73560-TC-RT-FY; 73590-TC-RT-FY; 73721-RT-TC; 80053; 82150; 82945; 82962; 83605; 83615; 83735; 84157; 84484; 85025; 85610; 85730; 87040; 87070; 87075; 87205; 89051; 89060; 93005; 93010; 93971-TC; 97116-GP; 97161-GP; 99284-25; J0131; J1644; J7030

== ENCOUNTER 2019-02-25 19:25 | Inpatient (IN) | payer OTHER ==
--- NOTE | 2019-02-25 19:33 | PDOC ---
Rapid Medical Evaluation Chief Complaint: Wound Time Seen by Provider: 02/25/19 19:28 Medical Evaluation: Allergies Allergy/AdvReac Type Severity Reaction Status Date / Time No Known Allergies Allergy Verified 01/11/18 12:00 02/25/19 19:29 I have performed a brief in-person evaluation of this patient. The patient presents with a chief complaint of: infected left foot, piece of glass extracted last week, now swollen with pus Pertinent physical exam findings: grossly diaphoretic - ( took Motrin ~ 2 hrs before) Gross swelling with foul/ fluctuance - redness extending up to mid red I have ordered the following: Xray foot, CXR- The patient will proceed to the ED for further evaluation. 02/25/19 19:31 Discharge Disposition - Diagnosis Cellulitis of foot, left - Referrals - Patient Instructions - Post Discharge Activity
--- NOTE | 2019-02-25 21:32 | PDOC ---
History of Present Illness - General Chief Complaint: Wound Stated Complaint: FOOT INFECTION Time Seen by Provider: 02/25/19 19:28 - History of Present Illness Initial Comments: 57yo M with PMH of HTN, HLD, CAD, DM complicated by LLE phalanx amputation sent by his primary care physician for evaluation of L. foot wound. Patient states he has had wounds in the same foot resulting in the removal of the third/fourth/ fifth digits. A piece of glass was removed from his foot one week ago by his doctor. Patient noticed today swelling and redness to his LLE. He also noted foul-smelling discharge from his foot. The wound was lanced by his doctor today. Patient reports a fever of 101 today for which he took four tablets of motrin. He also notes sweating and headache. No chest pain or shortness of breath. PCP: Dr. Gal Becerra Past History - Past Medical History Allergies/Adverse Reactions: Allergies Allergy/AdvReac Type Severity Reaction Status Date / Time No Known Allergies Allergy Verified 02/25/19 19:31 Home Medications: Ambulatory Orders Aspirin Coated [Ecotrin -] 81 mg PO DAILY #30 tablet.ec 04/25/16 Insulin (Levemir) [Levemir Vial] 30 units SQ BID 04/28/16 Amlodipine Besylate [Norvasc -] 5 mg PO DAILY 02/15/17 Hydrochlorothiazide [Hctz -] 25 mg PO BID 02/15/17 Metoprolol Succinate [Toprol XL -] 25 mg PO DAILY 02/15/17 metFORMIN HCL [Glucophage -] 500 mg PO BID 02/15/17 Pantoprazole Sodium [Protonix -] 40 mg PO BID #30 tab 05/14/17 Naproxen [Naprosyn] 500 mg PO BID #60 tablet 12/19/17 Anemia: No Asthma: No Cancer: No Cardiac Disorders: Yes CVA: No COPD: No CHF: No Dementia: No Diabetes: Yes (iddm) GI Disorders: Yes (HX.ULCER) Disorders: No HTN: Yes Hypercholesterolemia: Yes Liver Disease: No Seizures: No Thyroid Disease: No - Surgical History Abdominal Surgery: Yes (LEFT INGUINAL HERNIA REPAIR) Appendectomy: No Cardiac Surgery: No Cholecystectomy: No Lung Surgery: No Neurologic Surgery: No Orthopedic Surgery: Yes (L foot 3rd 4th and 5th digits amputated) - Suicide/Smoking/Psychosocial Hx Smoking History: Unknown if ever smoked Have you smoked in the past 12 months: No If you are a former smoker, when did you quit?: 1976 Hx Alcohol Use: No Drug/Substance Use Hx: No Substance Use Type: None Hx Substance Use Treatment: No Review of Systems - Review of Systems Comments:: Constitutional: +fever, +diaphoresis HEENT: no throat pain, no dysphagia Cardiovascular: no chest pain, no palpitations Respiratory: no cough, no shortness of breath Gastrointestinal: no abdominal pain, no nausea Genitourinary: no dysuria, no frequency Musculoskeletal: no myalgia, no arthralgia Skin: +L. foot wound, no R. foot wound Neurologic: no headache, no weakness *Physical Exam - Vital Signs Last Vital Signs Temp Pulse Resp BP Pulse Ox 99.3 F 116 H 18 117/72 96 02/25/19 19:28 02/25/19 19:28 02/25/19 19:28 02/25/19 19:28 02/25/19 19:28 - Physical Exam Comments: General: Awake, alert, and fully oriented, diaphoretic Head: No signs of trauma Eyes: EOMI, sclera anicteric ENT: Moist mucus membranes Neck: Normal ROM, supple Lungs: Lungs clear, Normal breath sounds Cardio: Regular rhythm, S1 and S2 present Abdomen: Soft, nontender. No guarding, no rebound, no masses Extremities: Normal range of motion, Distal pulses present R. foot: no abnormality appreciated, edema L. foot: amputated third/fourth/fifth digit, 1cm ulcer on plantar surface overlying medial arch, erythema and edema extending up to the mid calf SKIN: Warm, Dry, normal turgor Neurologic: Cranial nerves II through XII grossly intact. 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 foot wound. Though patient is afrebrile here, he took motrin prior to arrival. Tachycardic. Noted to be diaphoretic. CBC, CMP, Coags, Blood Cultures, CXR, EKG, Wound culture Lactate Ofirmev Vanc/Zosyn for broad-spectrum antibiotic coverage 02/25/19 21:32 EKG: rate 104, QTc 436, sinus tachycardia Dr Conner discussed case with Dr Oh who accepted patient for admission under herself. 02/25/19 22:54 CBC WBC 17.2 K/mm3 (4.0-10.0) H 02/25/19 22:57 RBC 4.28 M/mm3 (4.00-5.60) 02/25/19 22:57 Hgb 10.5 GM/dL (11.7-16.9) L 02/25/19 22:57 Hct 32.8 % (35.4-49) L 02/25/19 22:57 MCV 76.7 fl (80-96) L 02/25/19 22:57 MCH 24.5 pg (25.7-33.7) L 02/25/19 22:57 MCHC 32.0 g/dl (32.0-35.9) 02/25/19 22:57 RDW 17.7 % (11.9-15.9) H 02/25/19 22:57 Plt Count 352 K/MM3 (134-434) 02/25/19 22:57 MPV 8.4 fl (7.5-11.1) 02/25/19 22:57 Absolute Neuts (auto) 15.5 K/mm3 (1.5-8.0) H 02/25/19 22:57 Neutrophils % 89.7 % (42.8-82.8) H D 02/25/19 22:57 Neutrophils % (Manual) 78.6 % (42.8-82.8) 02/25/19 22:57 Band Neutrophils % 9.2 % 02/25/19 22:57 Lymphocytes % 5.7 % (8-40) L D 02/25/19 22:57 Lymphocytes % (Manual) 10.2 % (8-40) 02/25/19 22:57 Monocytes % 3.7 % (3.8-10.2) L 02/25/19 22:57 Monocytes % (Manual) 1 % (3.8-10.2) L 02/25/19 22:57 Eosinophils % 0.5 % (0-4.5) 02/25/19 22:57 Eosinophils % (Manual) 0.0 % (0-4.5) 02/25/19 22:57 Basophils % 0.4 % (0-2.0) 02/25/19 22:57 Basophils % (Manual) 0.0 % (0-2.0) 02/25/19 22:57 Myelocytes % (Man) 0 % (0-2) 02/25/19 22:57 Promyelocytes % (Man) 0 % (0-2) 02/25/19 22:57 Blast Cells % (Manual) 0 % (0-0) 02/25/19 22:57 Nucleated RBC % 0 % (0-0) 02/25/19 22:57 Metamyelocytes 0 % (0-2) 02/25/19 22:57 Hypochromia 1+ 02/25/19 22:57 Platelet Estimate Normal 02/25/19 22:57 Polychromasia 1+ 02/25/19 22:57 Poikilocytosis 1+ 02/25/19 22:57 Anisocytosis 1+ 02/25/19 22:57 Microcytosis 2+ 02/25/19 22:57 Macrocytosis 0 02/25/19 22:57 Stomatocytes 1+ 02/25/19 22:57 Leukocytosis Anemia at baseline CMP Sodium 133 mmol/L (136-145) L 02/25/19 22:57 Potassium 3.4 mmol/L (3.5-5.1) L 02/25/19 22:57 Chloride 92 mmol/L (98-107) L 02/25/19 22:57 Carbon Dioxide 31 mmol/L (21-32) 02/25/19 22:57 Anion Gap 10 MMOL/L (8-16) 02/25/19 22:57 BUN 25.4 mg/dL (7-18) H 02/25/19 22:57 Creatinine 1.2 mg/dL (0.55-1.3) 02/25/19 22:57 Est GFR (CKD-EPI)AfAm 76.79 02/25/19 22:57 Est GFR (CKD-EPI)NonAf 66.26 02/25/19 22:57 POC Glucometer 298 UNITS (80-120) 02/26/19 06:01 Random Glucose 122 mg/dL (74-106) H 02/25/19 22:57 Lactic Acid 1.1 mmol/L (0.4-2.0) 02/25/19 22:57 Calcium 8.3 mg/dL (8.5-10.1) L 02/25/19 22:57 Total Bilirubin 1.1 mg/dL (0.2-1) H 02/25/19 22:57 AST 13 U/L (15-37) L 02/25/19 22:57 ALT 13 U/L (13-61) 02/25/19 22:57 Alkaline Phosphatase 118 U/L (45-117) H 02/25/19 22:57 B-Natriuretic Peptide 353.2 pg/ml (5-125) H 02/25/19 22:57 Total Protein 7.4 g/dl (6.4-8.2) 02/25/19 22:57 Albumin 3.1 g/dl (3.4-5.0) L 02/25/19 22:57 Mild hyponatremia BUN elevated Normal lactate BNP elevated, similar to value in 2018 CXR without acute pathology, my impression *DC/Admit/Observation/Transfer Diagnosis at time of Disposition: Cellulitis of foot, left, Diabetic foot ulcer - Discharge Dispostion Condition at time of disposition: Guarded Decision to Admit order: Yes - Referrals - Patient Instructions - Post Discharge Activity
[2019-02-25] MEDS ORDERED: ACETAMINOPHEN 1000 MG/100 ML VIAL (NON FORMULARY) IVPB ONE (22:36)
[2019-02-25] MEDS ORDERED: PIPERACILLIN/TAZOB 3.375 GM 3.375 GM in DEXTROSE 5%-WATER - 50 ML IVPB ONE (22:36)
--- NOTE | 2019-02-25 22:41 | PDOC ---
Documentation entered by Jonel Tripathi SCRIBE, acting as scribe for Nika Conner DO. Nika Conner DO: This documentation has been prepared by the Bhumi marie Xhesika, SCRIBE, under my direction and personally reviewed by me in its entirety. I confirm that the documentation accurately reflects all work, treatment, procedures, and medical decision making performed by me. Attending Attestation - Resident Resident Name: Theresa Mccallumpranav) - ED Attending Attestation I have performed the following: I have examined & evaluated the patient, The case was reviewed & discussed with the resident, I agree w/resident's findings & plan, Exceptions are as noted - HPI HPI: 02/25/19 22:43 The patient is a 58 year old male, with a significant PMH of HTN, CAD, DM, PVD ( s/p previous amputation toes 3/4/5 on left foot, 08/2017) who presents to the emergency department with 2 weeks of left foot wound. The patient states he had a piece of glass extracted from his foot last week, however, his foot is now swollen, red, drainage with foul smelling pus. The patient states he took 2 Motrins 2hrs prior to his arrival. The patient denies chest pain, shortness of breath, headache and dizziness. Denies chills, nausea, vomiting, diarrhea and constipation. Denies dysuria, frequency, urgency and hematuria. Allergies: NKA PCP: Dr. Gal Becerra - Physicial Exam PE: 02/25/19 22:43 GENERAL: Awake, alert, and fully oriented, in no acute distress. (+)morbitly obese. HEAD: No signs of trauma NECK: Normal ROM, supple, no lymphadenopathy, JVD, or masses LUNGS:(+) diminished Breath sounds bilaterally. No wheezes, and no crackles HEART: (+)tachycardic. Regular rate and rhythm, normal S1 and S2, no murmurs, rubs or gallops ABDOMEN: Soft, nontender, normoactive bowel sounds. No guarding, no rebound. No masses EXTREMITIES: (+) L foot already amputated 3,4,5 toes. (+) 1cm circular wound on plantar L foot with drainage. (+) surrounding erythema and swelling up the leg. No clubbing or cyanosis. No cords NEUROLOGICAL: Cranial nerves II through XII grossly intact. Normal speech. SKIN: Warm, Dry, normal turgor. - Medical Decision Making 02/25/19 22:37 I, Dr. Nika Conner, DO, attest that this document has been prepared under my direction and personally reviewed by me in its entirety. I further attest, that it accurately reflects all work, treatment, procedures and medical decision -making performed by me. 02/25/19 22:37 a/p: 58yo male with dm with a foot wound -s/p amputation of toes 3-5 -wound to plantar surface of the foot with surrounding erythema and swelling in foot and leg -febrile -concern for diabetic foot wound -podiatry is dr. salazar -[facility] sx is dr. atkinson -will send labs, cultures, start broad spectrum abx -pt with hx of mrsa and enterococcus -will start vanco and zosyn given prior cultures -case has been discussed with Dr. Oh who accepts pt to service 02/26/19 01:55 elevated wbc no crepitus on exam indurated tissue open wound to bottom of foot *DC/Admit/Observation/Transfer Diagnosis at time of Disposition: Cellulitis of foot, left, Diabetic foot ulcer - Discharge Dispostion Condition at time of disposition: Guarded Decision to Admit order: Yes - Referrals - Patient Instructions - Post Discharge Activity
[2019-02-25 23:17] LABS: BASO % 0.4 % (0-2.0); EOS % 0.5 % (0-4.5); HEMATOCRIT 32.8 % (35.4-49); HEMOGLOBIN 10.5 GM/dL (11.7-16.9); LYMPH % 5.7 % (8-40); MCH 24.5 pg (25.7-33.7); MEAN CELL VOLUME 76.7 fl (80-96); MEAN PLT VOLUME 8.4 fl (7.5-11.1); MONO % 3.7 % (3.8-10.2); NEUT % 89.7 % (42.8-82.8); PLATELET COUNT 352 K/MM3 (134-434); RBC 4.28 M/mm3 (4.00-5.60); RDW 17.7 % (11.9-15.9); WHITE BLOOD COUNT 17.2 K/mm3 (4.0-10.0)
[2019-02-25] MEDS ORDERED: PIPERACILLIN/TAZOB 3.375 GM 3.375 GM/50 ML BAG IVPB ONE (23:25)
[2019-02-25] MEDS ORDERED: ACETAMINOPHEN INJECTION 100 ML IVPB ONE (23:25)
[2019-02-25 23:29] LABS: INR 1.15 (0.83-1.09); PROTHROMBIN TIME (PATIENT) 13.6 SEC (9.7-13.0)
[2019-02-25 23:39] LABS: ALBUMIN 3.1 g/dl (3.4-5.0); BILIRUBIN,TOTAL 1.1 mg/dL (0.2-1); BLOOD UREA NITROGEN 25.4 mg/dL (7-18); CALCIUM 8.3 mg/dL (8.5-10.1); CREATININE 1.2 mg/dL (0.55-1.3); POTASSIUM 3.4 mmol/L (3.5-5.1); TOT PROT 7.4 g/dl (6.4-8.2)
[2019-02-26] MEDS ORDERED: PIPERACILLIN/TAZOB 3.375 GM 3.375 GM/50 ML BAG IVPB SCH (02:00)
[2019-02-26 02:30] LABS: ANISOCYTOSIS 1+; MACROCYTOSIS 0; PLATELET ESTIMATE NORMAL
[2019-02-26] MEDS: PIPERACILLIN/TAZOB 3.375 GM 3.375 GM/50 ML BAG IVPB SCH ×4 (02:57→20:52)
[2019-02-26] MEDS ORDERED: metFORMIN HCL 500 MG TABLET (FP) ONE (06:07)
[2019-02-26] MEDS ORDERED: INSULIN NPH 100 UNITS/ML *VIAL ONE (06:08)
[2019-02-26] MEDS: metFORMIN HCL 500 MG TABLET (FP) PO SCH ×2 (06:12→20:51)
[2019-02-26] MEDS: INSULIN SLIDING SCALE (NOVOLOG) 1 VIAL SQ SCH ×5 (06:12→23:03)
[2019-02-26 06:44] LABS: BASO % 0.2 % (0-2.0); EOS % 0.8 % (0-4.5); HEMATOCRIT 31.8 % (35.4-49); HEMOGLOBIN 10.2 GM/dL (11.7-16.9); LYMPH % 6.6 % (8-40); MCH 24.8 pg (25.7-33.7); MCHC 32.1 g/dl (32.0-35.9); MEAN CELL VOLUME 77.4 fl (80-96); MEAN PLT VOLUME 8.7 fl (7.5-11.1); MONO % 3.4 % (3.8-10.2); PLATELET COUNT 336 K/MM3 (134-434); RBC 4.12 M/mm3 (4.00-5.60); RDW 17.8 % (11.9-15.9); WHITE BLOOD COUNT 16.6 K/mm3 (4.0-10.0)
[2019-02-26 07:05] LABS: ALBUMIN 2.7 g/dl (3.4-5.0); BLOOD UREA NITROGEN 27.8 mg/dL (7-18); CREATININE 1.3 mg/dL (0.55-1.3); POTASSIUM 3.5 mmol/L (3.5-5.1); TOT PROT 6.5 g/dl (6.4-8.2)
[2019-02-26] MEDS ORDERED: VANCOMYCIN 1 GRAM (PRE-DOCKED) 1,000 MG/250 ML BAG IVPB ONE (09:42)
[2019-02-26] MEDS ORDERED: PIPERACILLIN/TAZOB 3.375 GM 3.375 GM/50 ML BAG IVPB ONE (09:42)
[2019-02-26] MEDS ORDERED: INSULIN (LEVEMIR) 100 UNITS/ML UNITS SQ ONE (09:56)
[2019-02-26] MEDS ORDERED: HEPARIN NA (PORCINE) 5,000 UNITS/ML 1ML VIAL SQ SCH (10:00)
[2019-02-26] MEDS ORDERED: amLODIPine BESYLATE 5 MG TABLET (FP) PO SCH (10:00)
[2019-02-26] MEDS ORDERED: VANCOMYCIN 1 GM in D5W (PRE-DOCKED) 1,000 MG/250 ML IVPB SCH ×2 (10:00→22:00)
[2019-02-26] MEDS ORDERED: ASPIRIN COATED 81 MG TABLET.EC PO SCH (10:00)
[2019-02-26] MEDS ORDERED: HYDROCHLOROTHIAZIDE 25 MG TABLET (FP) PO SCH (10:00)
[2019-02-26] MEDS ORDERED: INSULIN (LEVEMIR) 100 UNITS/ML UNITS SQ SCH (10:00)
[2019-02-26] MEDS ORDERED: metoPROLOL SUCCINATE 25 MG TAB.SR.24H (FP) PO SCH (10:00)
[2019-02-26] MEDS ORDERED: PANTOPRAZOLE 40 MG TABLET (FP) PO SCH (10:00)
--- NOTE | 2019-02-26 10:46 | CONSULT ---
- Consultation REQUESTING PROVIDER: CONSULT REQUEST: We have been asked to surgically evaluate this patient for ( Left foot DM infection). PCP:Theresa Oh HISTORY OF PRESENT ILLNESS: 58 year old male, with a significant PMH of HTN, CAD , IDDM s/p multiple prior L fooot I&Ds and previous amputations (L toes by Dr Ragland [phone]), now presents to the Ed with new L foot infection. Pt reports Saturday after visiting the park with his daughter he came home and noted significant blood on his sock after removing his shoe. Pt was seen by his PCP Dr Becerra the following day. He had an x-ray in the office which revealed a small piece of glass in his foot. Pt states Dr Becerra removed the piece of glass and gave him a shot of PCN. He is unsure how the glass got into his foot, denies any trauma or walking barefoot. States "It must have flown into my sock when we were at the park". Pt states he changed the dressing the following day ( applied Bacitracin and gauze), however he noted odor and pus coming from his foot. Saw his PCP yesterday who sent him to the ER. Reports fevers in ER yesterday when he arrived. Denies chills, n/v/d, cp/sob. Pt has prolonged h/o DM (25 years), has been on Insulin for a majority of the time. Denies any complications from his DM with the exception of his foot infections. Sees a DPM at his PCPs office. Denies h/o tobacco abuse or known arterial disease. PMHx: as above PSHx: as above, denies any surgeries outside of his L foot sxs Home Medications Medication Instructions Recorded Aspirin Coated [Ecotrin -] 81 mg PO DAILY #30 tablet.ec 04/25/16 Insulin (Levemir) [Levemir Vial] 30 units SQ BID 04/28/16 Amlodipine Besylate [Norvasc -] 5 mg PO DAILY 02/15/17 Hydrochlorothiazide [Hctz -] 25 mg PO BID 02/15/17 Metoprolol Succinate [Toprol XL -] 25 mg PO DAILY 02/15/17 metFORMIN HCL [Glucophage -] 500 mg PO BID 02/15/17 Pantoprazole Sodium [Protonix -] 40 mg PO BID #30 tab 05/14/17 Naproxen [Naprosyn] 500 mg PO BID #60 tablet 12/19/17 Allergies Allergy/AdvReac Type Severity Reaction Status Date / Time No Known Allergies Allergy Verified 02/25/19 19:31 REVIEW OF SYSTEMS: CONSTITUTIONAL: +fever CARDIOVASCULAR: Absent: chest pain, syncope, palpitations RESPIRATORY: Absent: cough, shortness of breath GASTROINTESTINAL: Absent: abdominal pain PHYSICAL EXAM: GENERAL: Awake, alert, and fully oriented, in no acute distress. HEAD: Normal with no signs of trauma. LUNGS: Unlabored on RA. No accessory muscle use. ABDOMEN: Soft, nontender, not distended. LOWER EXTREMITIES: B/L les with 2+ pitting edema to mid red. LLE with + erythema to mid red, + increased warmth. L foot s/p amputation of toes 3,4,5. Chronic scar tissue from lateral aspect extending to mid plantar surface. Medial aspect of foot with approx 3x4.5cm area of blistering beginning from the ase of the 1st MTP and extending to the plantar surface. +moderate purulent drainage, + foul odor. + ttp along plantar surface. Vital Signs Temperature 98.9 F 02/26/19 08:53 Pulse Rate 108 H 02/26/19 08:53 Respiratory Rate 19 02/26/19 08:53 Blood Pressure 127/69 02/26/19 08:53 O2 Sat by Pulse Oximetry (%) 94 L 02/26/19 08:53 Lab Results WBC 16.6 K/mm3 (4.0-10.0) H 02/26/19 06:00 RBC 4.12 M/mm3 (4.00-5.60) 02/26/19 06:00 Hgb 10.2 GM/dL (11.7-16.9) L 02/26/19 06:00 Hct 31.8 % (35.4-49) L 02/26/19 06:00 MCV 77.4 fl (80-96) L 02/26/19 06:00 MCHC 32.1 g/dl (32.0-35.9) 02/26/19 06:00 RDW 17.8 % (11.9-15.9) H 02/26/19 06:00 Plt Count 336 K/MM3 (134-434) 02/26/19 06:00 Sodium 132 mmol/L (136-145) L 02/26/19 06:00 Potassium 3.5 mmol/L (3.5-5.1) 02/26/19 06:00 Chloride 91 mmol/L (98-107) L 02/26/19 06:00 Carbon Dioxide 32 mmol/L (21-32) 02/26/19 06:00 Anion Gap 8 MMOL/L (8-16) 02/26/19 06:00 BUN 27.8 mg/dL (7-18) H 02/26/19 06:00 Creatinine 1.3 mg/dL (0.55-1.3) 02/26/19 06:00 Random Glucose 267 mg/dL (74-106) H 02/26/19 06:00 Calcium 8.0 mg/dL (8.5-10.1) L 02/26/19 06:00 INR 1.15 (0.83-1.09) H 02/25/19 22:57 A/P: 58 y/o M w/ PMHx HTN, CAD, IDDM s/p multiple prior L fooot I&Ds and previous amputations (L toes by Dr Ragland [phone]), now presents to the Ed with sepsis from left diabetic foot infection. Pt tachycardic/hypotensive with +leukocytosis to 17k. Blood and wound cultures pending. Pt received Vanco and osyn in ER -NPO (ate full breakfast in ED at 830AM) -Pt needs wash out of L foot in OR -D/w Dr Galindo per attending Dr López. Dr Galindo will see the patient and take over care regarding L DM foot infx
[2019-02-26] MEDS ORDERED: INSULIN (NOVOLOG) ASPART 100 UNITS/ML 10ML VIAL ONE (11:44)
--- NOTE | 2019-02-26 15:18 | EKG ---
Test Reason : Blood Pressure : / mmHG Vent. Rate : 104 BPM Atrial Rate : 104 BPM P-R Int : 164 ms QRS Dur : 070 ms QT Int : 332 ms P-R-T Axes : 063 065 072 degrees QTc Int : 436 ms SINUS TACHYCARDIA OTHERWISE NORMAL ECG WHEN COMPARED WITH ECG OF 11-JAN-2018 14:01, NO SIGNIFICANT CHANGE WAS FOUND Confirmed by ALICE MAURICIO MD ([id number]) on 02/26/2019 3:17:53 PM Referred By: Confirmed By:ALICE MAURICIO MD
--- NOTE | 2019-02-26 15:31 | CONSULT ---
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: Peripheral Neuropathy Cardio/Vascular: Yes: HTN, Hyperlipdemia Renal/: Yes: Renal Inusuff Infectious Disease: Yes: Other (LLE osteo on MRI here 06/2015) Endocrine: Yes: Diabetes Mellitus (on Victoza) - Past Surgical History Past Surgical History: Yes: Hernia Repair (left inguinal) - Alcohol/Substance Use Hx Alcohol Use: No History of Substance Use: reports: None - Smoking History Smoking history: Unknown if ever smoked Have you smoked in the past 12 months: No If you are a former smoker, when did you quit?: 1976 - Social History ADL: Independent History of Recent Travel: No Home Medications - Allergies Allergies/Adverse Reactions: Allergies Allergy/AdvReac Type Severity Reaction Status Date / Time No Known Allergies Allergy Verified 02/25/19 19:31 - Home Medications Home Medications: Ambulatory Orders Aspirin Coated [Ecotrin -] 81 mg PO DAILY #30 tablet.ec 04/25/16 Insulin (Levemir) [Levemir Vial] 30 units SQ BID 04/28/16 Amlodipine Besylate [Norvasc -] 5 mg PO DAILY 02/15/17 Hydrochlorothiazide [Hctz -] 25 mg PO BID 02/15/17 Metoprolol Succinate [Toprol XL -] 25 mg PO DAILY 02/15/17 metFORMIN HCL [Glucophage -] 500 mg PO BID 02/15/17 Pantoprazole Sodium [Protonix -] 40 mg PO BID #30 tab 05/14/17 Naproxen [Naprosyn] 500 mg PO BID #60 tablet 12/19/17 Physical Exam Vital Signs: Vital Signs Temperature 98.9 F 02/26/19 08:53 Pulse Rate 108 H 02/26/19 08:53 Respiratory Rate 19 02/26/19 08:53 Blood Pressure 127/69 02/26/19 08:53 O2 Sat by Pulse Oximetry (%) 94 L 02/26/19 08:53 Extremities: Yes: Other (+neuropathic left foot with abscess of medial distal foot, +drainage, +foul smelling, +cellulitis to distal medial ankle,) Labs: CBC, BMP 02/26/19 06:00 02/26/19 06:00 Assessment/Plan abscess cellulitis charcot foot left neuropathy Patient to OR for emergent I&D. Abx as per ID. Discussed with Dr. Cummings. Consent obtained for I&D with possible bone biopsy.
[2019-02-26] MEDS ORDERED: LIDOCAINE HCL 1%, 10 MG/ML (20ML VIAL) ONE (15:40)
[2019-02-26] MEDS ORDERED: BUPIVACAINE HCL/PF 0.5% (5MG/ML) 10 ML VIAL ONE (15:41)
--- NOTE | 2019-02-26 16:38 | PN ---
Progress Note, Physician History of Present Illness: Pt seen and examined Please see H&P - Current Medication List Current Medications: Active Medications Amlodipine Besylate (Norvasc -) 5 mg PO DAILY [facility] Last Admin: 02/26/19 10:02 Dose: 5 mg Aspirin (Ecotrin -) 81 mg PO DAILY [facility] Last Admin: 02/26/19 10:02 Dose: 81 mg Heparin Sodium (Porcine) (Heparin -) 5,000 unit SQ BID [facility] Last Admin: 02/26/19 10:02 Dose: 5,000 unit Hydrochlorothiazide (Hctz -) 25 mg PO BID [facility] Last Admin: 02/26/19 10:02 Dose: 25 mg Piperacillin Sod/Tazobactam Sod (Zosyn 3.375gm Ivpb (Pre-Docked)) 3.375 gm in 50 mls @ 100 mls/hr IVPB Q8H-IV [facility]; Protocol Last Admin: 02/26/19 09:30 Dose: 100 mls/hr Piperacillin Sod/Tazobactam Sod (Zosyn 3.375gm Ivpb (Pre-Docked)) 3.375 gm in 50 mls @ 100 mls/hr IVPB Q8H-IV [facility]; Protocol Insulin Aspart (Novolog Vial Sliding Scale -) 1 vial SQ ACHS [facility]; Protocol Last Admin: 02/26/19 11:40 Dose: 6 unit Insulin Detemir (Levemir Vial) 30 units SQ BID [facility] Last Admin: 02/26/19 10:02 Dose: 30 units Metformin HCl (Glucophage -) 500 mg PO BIDAC [facility] Last Admin: 02/26/19 06:12 Dose: 500 mg Metoprolol Succinate (Toprol Xl -) 25 mg PO DAILY [facility] Last Admin: 02/26/19 10:02 Dose: 25 mg Pantoprazole Sodium (Protonix -) 40 mg PO BID [facility] Last Admin: 02/26/19 10:02 Dose: 40 mg Vancomycin HCl (Vancomycin (Pre-Docked)) 1,000 mg IVPB BID [facility]; Protocol Vancomycin HCl (Vancomycin (Pre-Docked)) 1,000 mg IVPB Q12H [facility]; Protocol Stop: 02/26/19 22:01 Last Admin: 02/26/19 10:03 Dose: 1,000 mg - Objective Vital Signs: Vital Signs Temperature 98.9 F 02/26/19 08:53 Pulse Rate 97 H 02/26/19 15:51 Respiratory Rate 18 02/26/19 15:51 Blood Pressure 120/67 02/26/19 15:51 O2 Sat by Pulse Oximetry (%) 94 L 02/26/19 08:53 Labs: CBC, BMP 02/26/19 06:00 02/26/19 06:00 INR, PTT INR 1.15 (0.83-1.09) H 02/25/19 22:57
[2019-02-26] MEDS ORDERED: PROMETHAZINE HCL 25 MG/1 ML VIAL IVPUSH PRN ×2 (16:56→18:15)
[2019-02-26] MEDS ORDERED: oxyCODONE HCL 5 MG TABLET PO PRN (16:56)
[2019-02-26] MEDS ORDERED: ONDANSETRON 4 MG/2 ML VIAL IVPUSH PRN ×2 (16:56→18:15)
[2019-02-26] MEDS ORDERED: LACTATED RINGERS SOLUTION 1,000 ML IV SCH (17:00)
[2019-02-26] MEDS ORDERED: MIDAZOLAM HCL 2 MG/2 ML SINGLE DOSE VIAL ONE (17:04)
[2019-02-26] MEDS ORDERED: BACITRACIN 50,000 UNITS VIAL NR ONE (17:22)
--- NOTE | 2019-02-26 17:46 | OP ---
Operative Note - Note: Operative Date: 02/26/19 Pre-Operative Diagnosis: Abscess with cellulitis left foot Operation: Incision and drainage left foot with 1000ml pulse lavage with bacitracin and saline. Findings: +drainage and purulence, +necrotic tissue, +foul smelling exudate Post-Operative Diagnosis: Same as Pre-op Surgeon: Nikunj Galindo Office Messenger: Wilber Lira Anesthesia: Local (none needed patient neuropathic) Specimens Removed: necrotic tissue and abscess Estimated Blood Loss (mls): 20 Instrument used (Debridements only): 15 blade Drains & Tubes with Location: 1 inch iodoform packing medial foot Operative Report Dictated: No
[2019-02-26] MEDS: LACTATED RINGERS SOLUTION 1,000 ML IV SCH (19:30)
[2019-02-26] MEDS ORDERED: ACETAMINOPHEN 1000 MG/100 ML VIAL (NON FORMULARY) IVPB ONE (19:30)
[2019-02-26 21:56] LABS: BASO % 0.2 % (0-2.0); EOS % 0.8 % (0-4.5); HEMATOCRIT 29.7 % (35.4-49); HEMOGLOBIN 9.6 GM/dL (11.7-16.9); LYMPH % 7.4 % (8-40); MCH 24.7 pg (25.7-33.7); MCHC 32.4 g/dl (32.0-35.9); MEAN CELL VOLUME 76.1 fl (80-96); MEAN PLT VOLUME 8.4 fl (7.5-11.1); MONO % 4.7 % (3.8-10.2); NEUT % 86.9 % (42.8-82.8); PLATELET COUNT 327 K/MM3 (134-434); RBC 3.91 M/mm3 (4.00-5.60); RDW 17.6 % (11.9-15.9); WHITE BLOOD COUNT 14.8 K/mm3 (4.0-10.0)
--- NOTE | 2019-02-26 22:15 | CON.ID ---
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: Yes: Peripheral Neuropathy Cardio/Vascular: Yes: HTN, Hyperlipdemia Renal/: Yes: Renal Inusuff Infectious Disease: Yes: Other (LLE osteo on MRI here 06/2015) Endocrine: Yes: Diabetes Mellitus (on Victoza) - Past Surgical History Past Surgical History: Yes: Hernia Repair (left inguinal) - Alcohol/Substance Use Hx Alcohol Use: No History of Substance Use: reports: None - Smoking History Smoking history: Unknown if ever smoked Have you smoked in the past 12 months: No If you are a former smoker, when did you quit?: 1976 - Social History ADL: Independent History of Recent Travel: No Home Medications - Allergies Allergies/Adverse Reactions: Allergies Allergy/AdvReac Type Severity Reaction Status Date / Time No Known Allergies Allergy Verified 02/25/19 19:31 - Home Medications Home Medications: Ambulatory Orders Aspirin Coated [Ecotrin -] 81 mg PO DAILY #30 tablet.ec 04/25/16 Insulin (Levemir) [Levemir Vial] 30 units SQ BID 04/28/16 Amlodipine Besylate [Norvasc -] 5 mg PO DAILY 02/15/17 Hydrochlorothiazide [Hctz -] 25 mg PO BID 02/15/17 Metoprolol Succinate [Toprol XL -] 25 mg PO DAILY 02/15/17 metFORMIN HCL [Glucophage -] 500 mg PO BID 02/15/17 Pantoprazole Sodium [Protonix -] 40 mg PO BID #30 tab 05/14/17 Naproxen [Naprosyn] 500 mg PO BID #60 tablet 12/19/17 Physical Exam Vital Signs: Vital Signs Temperature 100.7 F H 02/26/19 20:00 Pulse Rate 105 H 02/26/19 20:00 Respiratory Rate 24 H 02/26/19 20:00 Blood Pressure 139/67 02/26/19 20:00 O2 Sat by Pulse Oximetry (%) 96 02/26/19 20:00 Labs: CBC, BMP 02/26/19 21:30 02/26/19 06:00
--- NOTE | 2019-02-26 22:44 | HP ---
Admitting History and Physical - Admission History of Present Illness: Pt is a 58 year old male with PMH significant for HTN, CAD, IDDM s/p multiple prior L foot I&Ds and previous amputations (L toes ) who now presented to the ER with new L foot infection. Pt reports Saturday after visiting the park with his daughter he came home and noted significant blood on his sock after removing his shoe. Pt was seen by his PCP Dr Becerra the following day. He had an x-ray in the office which revealed a small piece of glass in his foot. Pt states Dr Becerra removed the piece of glass and gave him a shot of PCN. Pt states he changed the dressing the following day (applied Bacitracin and gauze) , however he noted odor and pus coming from his foot. Saw his PCP yesterday who sent him to the ER. Reports fevers in ER yesterday when he arrived. 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: Peripheral Neuropathy Cardiovascular: Yes: HTN, Hyperlipdemia Renal/: Yes: Renal Inusuff Infectious Disease: Yes: Other (LLE osteo on MRI here 06/2015) Endocrine: Yes: Diabetes Mellitus (on Victoza) - Past Surgical History Past Surgical History: Yes: Hernia Repair (left inguinal) Additional Past Surgical History: Amputation lt toes - Smoking History Smoking history: Unknown if ever smoked Have you smoked in the past 12 months: No If you are a former smoker, when did you quit?: 1976 - Alcohol/Substance Use Hx Alcohol Use: No History of Substance Use: reports: None - Social History ADL: Independent History of Recent Travel: No Home Medications - Allergies Allergies/Adverse Reactions: Allergies Allergy/AdvReac Type Severity Reaction Status Date / Time No Known Allergies Allergy Verified 02/25/19 19:31 - Home Medications Home Medications: Ambulatory Orders Aspirin Coated [Ecotrin -] 81 mg PO DAILY #30 tablet.ec 04/25/16 Insulin (Levemir) [Levemir Vial] 30 units SQ BID 04/28/16 Amlodipine Besylate [Norvasc -] 5 mg PO DAILY 02/15/17 Hydrochlorothiazide [Hctz -] 25 mg PO BID 02/15/17 Metoprolol Succinate [Toprol XL -] 25 mg PO DAILY 02/15/17 metFORMIN HCL [Glucophage -] 500 mg PO BID 02/15/17 Pantoprazole Sodium [Protonix -] 40 mg PO BID #30 tab 05/14/17 Naproxen [Naprosyn] 500 mg PO BID #60 tablet 12/19/17 Family Disease History - Family Disease History Family History: Unremarkable Review of Systems - Review of Systems Constitutional: reports: Weakness Eyes: reports: No Symptoms HENT: reports: No Symptoms Neck: reports: No Symptoms Cardiovascular: reports: No Symptoms Respiratory: reports: No Symptoms Gastrointestinal: reports: No Symptoms Genitourinary: reports: No Symptoms Physical Examination Vital Signs: Vital Signs Temperature 100.7 F H 02/26/19 20:00 Pulse Rate 105 H 02/26/19 20:00 Respiratory Rate 24 H 02/26/19 20:00 Blood Pressure 139/67 02/26/19 20:00 O2 Sat by Pulse Oximetry (%) 96 02/26/19 20:00 Constitutional: Yes: Well Nourished HENT: Yes: WNL Neck: Yes: WNL, Supple Cardiovascular: Yes: WNL, Regular Rate and Rhythm Respiratory: Yes: WNL, Regular, CTA Bilaterally Gastrointestinal: Yes: WNL, Normal Bowel Sounds, Soft, Abdomen, Obese Extremities: Yes: Other ((+) wound lt foot Lt 3,4,5 toes Amputation) Edema: No Neurological: Yes: WNL, Alert, Oriented ...Motor Strength: WNL Labs: CBC, BMP 02/26/19 21:30 02/26/19 06:00 Problem List - Problems (1) Diabetic foot ulcer Assessment/Plan: Abscess/cellulitis lt foot Follow cultures ID/podaitry consultation Cont IV antibxs Code(s): E11.621 - TYPE 2 DIABETES MELLITUS WITH FOOT ULCER; L97.509 - NON- PRESSURE CHRONIC ULCER OTH PRT UNSP FOOT W UNSP SEVERITY (2) Anemia Assessment/Plan: Monitor H/H Code(s): D64.9 - ANEMIA, UNSPECIFIED (3) CKD (chronic kidney disease) Code(s): N18.9 - CHRONIC KIDNEY DISEASE, UNSPECIFIED (4) Diabetes Assessment/Plan: Cont levemir/metformin Cont sliding scale w/ coverage Code(s): E11.9 - TYPE 2 DIABETES MELLITUS WITHOUT COMPLICATIONS Qualifiers: Diabetes mellitus type: other specified (including LASHAY) Diabetes mellitus 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
[2019-02-26] MEDS: HEPARIN NA (PORCINE) 5,000 UNITS/ML 1ML VIAL SQ SCH (23:03)
[2019-02-26] MEDS: HYDROCHLOROTHIAZIDE 25 MG TABLET (FP) PO SCH (23:03)
[2019-02-26] MEDS: PANTOPRAZOLE 40 MG TABLET (FP) PO SCH (23:03)
[2019-02-26] MEDS: INSULIN (LEVEMIR) 100 UNITS/ML UNITS SQ SCH (23:04)
[2019-02-27] MEDS ORDERED: PIPERACILLIN/TAZOB 3.375 GM 3.375 GM/50 ML BAG IVPB SCH (02:00)
[2019-02-27] MEDS ORDERED: PIPERACILLIN/TAZOBACTAM 3.375 GM VIAL IVPB ONE ×3 (02:44→17:16)
[2019-02-27] MEDS ORDERED: DEXTROSE 5%-WATER - 50 ML IVPB ONE ×3 (02:44→17:16)
[2019-02-27] MEDS: metFORMIN HCL 500 MG TABLET (FP) PO SCH ×2 (06:59→17:17)
[2019-02-27] MEDS: LACTATED RINGERS SOLUTION 1,000 ML IV SCH (06:59)
[2019-02-27] MEDS: INSULIN SLIDING SCALE (NOVOLOG) 1 VIAL SQ SCH ×4 (06:59→22:46)
[2019-02-27] MEDS: oxyCODONE HCL 5 MG TABLET PO PRN ×3 (09:03→22:44)
[2019-02-27] MEDS: ASPIRIN COATED 81 MG TABLET.EC PO SCH (10:07)
[2019-02-27] MEDS: HEPARIN NA (PORCINE) 5,000 UNITS/ML 1ML VIAL SQ SCH ×2 (10:07→22:44)
[2019-02-27] MEDS: PIPERACILLIN/TAZOB 3.375 GM 3.375 GM in DEXTROSE 5%-WATER - 50 ML IVPB SCH ×2 (10:07→17:18)
[2019-02-27] MEDS: PANTOPRAZOLE 40 MG TABLET (FP) PO SCH ×2 (10:07→22:44)
[2019-02-27] MEDS: amLODIPine BESYLATE 5 MG TABLET (FP) PO SCH (10:07)
[2019-02-27] MEDS: metoPROLOL SUCCINATE 25 MG TAB.SR.24H (FP) PO SCH (10:07)
[2019-02-27] MEDS: HYDROCHLOROTHIAZIDE 25 MG TABLET (FP) PO SCH ×2 (10:08→22:44)
[2019-02-27] MEDS ORDERED: INSULIN (LEVEMIR) 100 UNITS/ML UNITS SQ ONE (10:12)
[2019-02-27] MEDS: INSULIN (LEVEMIR) 100 UNITS/ML UNITS SQ SCH ×2 (10:13→22:45)
--- NOTE | 2019-02-27 17:12 | PN ---
Progress Note (short form) - Note Progress Note: POD#1. No pain. Tmax 99 wbc=14.5, +dressing clean dry and intact, normal post op cellulitis Continue abx as per ID. Dressing change tomorrow. Will follow. CBC with diff ordered.
--- NOTE | 2019-02-27 19:01 | PN ---
Progress Note, Physician History of Present Illness: Pt seen and examined, chart reviewed. He states pain in Lt foot is controlled. s /p Lt foot I+D POD#1. Low grade fevers noted. No other specific complaints. - Current Medication List Current Medications: Active Medications Amlodipine Besylate (Norvasc -) 5 mg PO DAILY [facility] Last Admin: 02/27/19 10:07 Dose: 5 mg Aspirin (Ecotrin -) 81 mg PO DAILY [facility] Last Admin: 02/27/19 10:07 Dose: 81 mg Fentanyl (Sublimaze Injection -) 50 mcg IVPUSH Q5M PRN PRN Reason: PAIN-PACU ORDER X 4 DOSES ONLY Heparin Sodium (Porcine) (Heparin -) 5,000 unit SQ BID [facility] Last Admin: 02/27/19 10:07 Dose: 5,000 unit Hydrochlorothiazide (Hctz -) 25 mg PO BID [facility] Last Admin: 02/27/19 10:08 Dose: 25 mg Lactated Ringer's (Lactated Ringers Solution) 1,000 mls @ 125 mls/hr IV ASDIR [facility] Last Admin: 02/27/19 06:59 Dose: 125 mls/hr Piperacillin Sod/Tazobactam (Sod 3.375 gm/ Dextrose) 50 mls @ 100 mls/hr IVPB Q8H-IV [facility]; Protocol Insulin Aspart (Novolog Vial Sliding Scale -) 1 vial SQ ACHS [facility]; Protocol Last Admin: 02/27/19 17:07 Dose: 4 units Insulin Detemir (Levemir Vial) 30 units SQ BID [facility] Last Admin: 02/27/19 10:13 Dose: 30 units [facility]) [facility] Last Admin: 02/27/19 17:17 Dose: 500 mg Metoprolol Succinate (Toprol Xl -) 25 mg PO DAILY [facility] Last Admin: 02/27/19 10:07 Dose: 25 mg Ondansetron HCl (Zofran Injection) 4 mg IVPUSH Q6H PRN PRN Reason: NAUSEA AND/OR VOMITING Oxycodone HCl (Roxicodone -) 10 mg PO Q4H PRN PRN Reason: PAIN LEVEL 6-10 Last Admin: 02/27/19 14:47 Dose: 10 mg Pantoprazole Sodium (Protonix -) 40 mg PO BID [facility] Last Admin: 02/27/19 10:07 Dose: 40 mg Promethazine HCl (Phenergan Injection -) 12.5 mg IVPUSH Q6H PRN PRN Reason: NAUSEA-FOR RESCUE AFTER 15 MIN Vancomycin HCl (Vancomycin (Pre-Docked)) 1,000 mg IVPB Q12H [facility] - Objective Vital Signs: Vital Signs Temperature 99.3 F 02/27/19 18:00 Pulse Rate 96 H 02/27/19 18:00 Respiratory Rate 20 02/27/19 18:00 Blood Pressure 132/67 02/27/19 18:00 O2 Sat by Pulse Oximetry (%) 94 L 02/27/19 09:00 Constitutional: Yes: No Distress, Calm Cardiovascular: Yes: Regular Rate and Rhythm Respiratory: Yes: Regular Gastrointestinal: Yes: Normal Bowel Sounds, Soft, Abdomen, Obese Genitourinary: Yes: WNL Wound/Incision: Yes: Other (Lt foot edema/warmth, dressing intact) Neurological: Yes: Alert, Oriented Labs: CBC, BMP 02/26/19 21:30 02/26/19 06:00 INR, PTT INR 1.15 (0.83-1.09) H 02/25/19 22:57 Microbiology 02/26/19 17:20 Foot - Left Gram Stain - Final 02/25/19 22:57 Wound Gram Stain - Final 02/25/19 22:57 Wound Wound Culture - Preliminary Staphylococcus Coagulase Neg Pending Organism Pending Organism#2 Pending Organism#3 02/25/19 22:57 Blood - Peripheral Venous Blood Culture - Preliminary NO GROWTH OBTAINED AFTER 24 HOURS, INCUBATION TO CONTINUE FOR 4 DAYS. 02/25/19 22:57 Blood - Peripheral Venous Blood Culture - Preliminary NO GROWTH OBTAINED AFTER 24 HOURS, INCUBATION TO CONTINUE FOR 4 DAYS. - ....Imaging X-ray: Report Reviewed Problem List - Problems (1) Cellulitis of foot, left Code(s): L03.116 - CELLULITIS OF LEFT LOWER LIMB (2) Diabetic foot ulcer Code(s): E11.621 - TYPE 2 DIABETES MELLITUS WITH FOOT ULCER; L97.509 - NON- PRESSURE CHRONIC ULCER OTH PRT UNSP FOOT W UNSP SEVERITY (3) CKD (chronic kidney disease) Code(s): N18.9 - CHRONIC KIDNEY DISEASE, UNSPECIFIED (4) Diabetes Code(s): E11.9 - TYPE 2 DIABETES MELLITUS WITHOUT COMPLICATIONS Qualifiers: Diabetes mellitus type: other specified (including LASHAY) Diabetes mellitus care home insulin use: unspecified machine long goods helper insulin use status Diabetes mellitus complication status: with hyperglycemia Qualified Code(s): E13.65 - Other specified diabetes mellitus with hyperglycemia (5) HTN (hypertension) Code(s): I10 - ESSENTIAL (PRIMARY) HYPERTENSION (6) Morbid obesity Code(s): E66.01 - MORBID (SEVERE) OBESITY DUE TO EXCESS CALORIES (7) Peripheral neuropathy Code(s): G62.9 - POLYNEUROPATHY, UNSPECIFIED (8) Sepsis Code(s): A41.9 - SEPSIS, UNSPECIFIED ORGANISM Qualifiers: Sepsis type: sepsis due to unspecified organism Qualified Code(s): A41.9 - Sepsis, unspecified organism Assessment/Plan Lt foot abscess s/p I+D POD#1 Fever Leukocytosis DM CKD Hx of Lt foot OM Morbid obesity -- continue Zosyn/Vancomycin for now -- Vancomycin trough level prior to 4th dose, monitor renal function -- f/u wound culture results -- continue monitor temps/wbc trend -- continue wound care -- Podiatry following
[2019-02-27] MEDS: VANCOMYCIN 1 GM in D5W (PRE-DOCKED) 1,000 MG/250 ML IVPB SCH ×2 (20:13→20:20)
[2019-02-27 20:45] LABS: BASO % 0.2 % (0-2.0); EOS % 0.8 % (0-4.5); HEMATOCRIT 33.3 % (35.4-49); HEMOGLOBIN 10.6 GM/dL (11.7-16.9); LYMPH % 7.6 % (8-40); MCH 24.6 pg (25.7-33.7); MCHC 31.9 g/dl (32.0-35.9); MEAN CELL VOLUME 77.1 fl (80-96); MEAN PLT VOLUME 8.5 fl (7.5-11.1); MONO % 4.9 % (3.8-10.2); NEUT % 86.5 % (42.8-82.8); PLATELET COUNT 376 K/MM3 (134-434); RBC 4.32 M/mm3 (4.00-5.60); RDW 17.7 % (11.9-15.9); WHITE BLOOD COUNT 14.5 K/mm3 (4.0-10.0)
--- NOTE | 2019-02-27 21:39 | PN ---
Progress Note, Physician History of Present Illness: No new complaints - Current Medication List Current Medications: Active Medications Amlodipine Besylate (Norvasc -) 5 mg PO DAILY [facility] Last Admin: 02/27/19 10:07 Dose: 5 mg Aspirin (Ecotrin -) 81 mg PO DAILY [facility] Last Admin: 02/27/19 10:07 Dose: 81 mg Fentanyl (Sublimaze Injection -) 50 mcg IVPUSH Q5M PRN PRN Reason: PAIN-PACU ORDER X 4 DOSES ONLY Heparin Sodium (Porcine) (Heparin -) 5,000 unit SQ BID [facility] Last Admin: 02/27/19 10:07 Dose: 5,000 unit Hydrochlorothiazide (Hctz -) 25 mg PO BID [facility] Last Admin: 02/27/19 10:08 Dose: 25 mg Lactated Ringer's (Lactated Ringers Solution) 1,000 mls @ 125 mls/hr IV ASDIR [facility] Last Admin: 02/27/19 06:59 Dose: 125 mls/hr Piperacillin Sod/Tazobactam (Sod 3.375 gm/ Dextrose) 50 mls @ 100 mls/hr IVPB Q8H-IV [facility]; Protocol Insulin Aspart (Novolog Vial Sliding Scale -) 1 vial SQ ACHS [facility]; Protocol Last Admin: 02/27/19 17:07 Dose: 4 units Insulin Detemir (Levemir Vial) 30 units SQ BID [facility] Last Admin: 02/27/19 10:13 Dose: 30 units [facility]) [facility] Last Admin: 02/27/19 17:17 Dose: 500 mg Metoprolol Succinate (Toprol Xl -) 25 mg PO DAILY [facility] Last Admin: 02/27/19 10:07 Dose: 25 mg Ondansetron HCl (Zofran Injection) 4 mg IVPUSH Q6H PRN PRN Reason: NAUSEA AND/OR VOMITING Oxycodone HCl (Roxicodone -) 10 mg PO Q4H PRN PRN Reason: PAIN LEVEL 6-10 Last Admin: 02/27/19 14:47 Dose: 10 mg Pantoprazole Sodium (Protonix -) 40 mg PO BID [facility] Last Admin: 02/27/19 10:07 Dose: 40 mg Promethazine HCl (Phenergan Injection -) 12.5 mg IVPUSH Q6H PRN PRN Reason: NAUSEA-FOR RESCUE AFTER 15 MIN Vancomycin HCl (Vancomycin (Pre-Docked)) 1,000 mg IVPB Q12H [facility] Last Admin: 02/27/19 20:20 Dose: 1,000 mg - Objective Vital Signs: Vital Signs Temperature 99.3 F 02/27/19 18:00 Pulse Rate 96 H 02/27/19 18:00 Respiratory Rate 02/27/19 18:00 Blood Pressure 132/67 02/27/19 18:00 O2 Sat by Pulse Oximetry (%) 94 L 02/27/19 09:00 Constitutional: Yes: Well Nourished, Obese Neck: Yes: WNL, Supple Cardiovascular: Yes: WNL, Regular Rate and Rhythm Respiratory: Yes: WNL, Regular, CTA Bilaterally Gastrointestinal: Yes: WNL, Normal Bowel Sounds, Soft, Abdomen, Obese Extremities: Yes: Other (Lt foot ulcer) Labs: CBC, BMP 02/27/19 20:00 02/26/19 06:00 INR, PTT INR 1.15 (0.83-1.09) H 02/25/19 22:57 Problem List - Problems (1) Diabetic foot ulcer Code(s): E11.621 - TYPE 2 DIABETES MELLITUS WITH FOOT ULCER; L97.509 - NON- PRESSURE CHRONIC ULCER OTH PRT UNSP FOOT W UNSP SEVERITY (2) Anemia Code(s): D64.9 - ANEMIA, UNSPECIFIED (3) CKD (chronic kidney disease) Code(s): N18.9 - CHRONIC KIDNEY DISEASE, UNSPECIFIED (4) Diabetes Code(s): E11.9 - TYPE 2 DIABETES MELLITUS WITHOUT COMPLICATIONS Qualifiers: Diabetes mellitus type: other specified (including LASHAY) Diabetes mellitus senior living insulin use: unspecified senior living insulin use status Diabetes mellitus complication status: with hyperglycemia Qualified Code(s): E13.65 - Other specified diabetes mellitus with hyperglycemia (5) HTN (hypertension) Code(s): I10 - ESSENTIAL (PRIMARY) HYPERTENSION
[2019-02-27] MEDS ORDERED: LACTATED RINGERS SOLUTION 1,000 ML IV SCH (23:15)
[2019-02-28] MEDS ORDERED: PIPERACILLIN/TAZOBACTAM 3.375 GM VIAL IVPB ONE ×3 (02:07→16:44)
[2019-02-28] MEDS ORDERED: DEXTROSE 5%-WATER - 50 ML IVPB ONE ×3 (02:07→16:44)
[2019-02-28] MEDS: PIPERACILLIN/TAZOB 3.375 GM 3.375 GM in DEXTROSE 5%-WATER - 50 ML IVPB SCH ×3 (02:32→17:10)
[2019-02-28] MEDS: metFORMIN HCL 500 MG TABLET (FP) PO SCH ×2 (06:55→17:10)
[2019-02-28] MEDS: INSULIN SLIDING SCALE (NOVOLOG) 1 VIAL SQ SCH ×4 (06:55→21:52)
[2019-02-28 07:45] LABS: BASO % 0.4 % (0-2.0); EOS % 1.2 % (0-4.5); HEMATOCRIT 30.7 % (35.4-49); HEMOGLOBIN 9.9 GM/dL (11.7-16.9); LYMPH % 10.5 % (8-40); MCH 24.6 pg (25.7-33.7); MCHC 32.3 g/dl (32.0-35.9); MEAN CELL VOLUME 76.4 fl (80-96); MEAN PLT VOLUME 8.3 fl (7.5-11.1); NEUT % 81.9 % (42.8-82.8); RBC 4.02 M/mm3 (4.00-5.60); RDW 17.2 % (11.9-15.9); WHITE BLOOD COUNT 11.8 K/mm3 (4.0-10.0)
[2019-02-28] MEDS: VANCOMYCIN 1 GM in D5W (PRE-DOCKED) 1,000 MG/250 ML IVPB SCH ×2 (07:56→21:00)
[2019-02-28 08:04] LABS: ALBUMIN 2.2 g/dl (3.4-5.0); BILIRUBIN,TOTAL 0.4 mg/dL (0.2-1); BLOOD UREA NITROGEN 12.6 mg/dL (7-18); CALCIUM 8.3 mg/dL (8.5-10.1); CREATININE 0.8 mg/dL (0.55-1.3); POTASSIUM 3.4 mmol/L (3.5-5.1); TOT PROT 6.5 g/dl (6.4-8.2)
[2019-02-28 08:10] LABS: PLATELET COUNT 366 K/MM3 (134-434)
[2019-02-28] MEDS: amLODIPine BESYLATE 5 MG TABLET (FP) PO SCH (10:03)
[2019-02-28] MEDS: HYDROCHLOROTHIAZIDE 25 MG TABLET (FP) PO SCH ×2 (10:03→21:51)
[2019-02-28] MEDS: PANTOPRAZOLE 40 MG TABLET (FP) PO SCH ×2 (10:03→21:51)
[2019-02-28] MEDS: ASPIRIN COATED 81 MG TABLET.EC PO SCH (10:03)
[2019-02-28] MEDS: metoPROLOL SUCCINATE 25 MG TAB.SR.24H (FP) PO SCH (10:03)
[2019-02-28] MEDS: HEPARIN NA (PORCINE) 5,000 UNITS/ML 1ML VIAL SQ SCH ×2 (10:05→21:51)
[2019-02-28] MEDS: INSULIN (LEVEMIR) 100 UNITS/ML UNITS SQ SCH ×2 (10:54→21:51)
[2019-02-28] MEDS ORDERED: INSULIN (NOVOLOG) ASPART 100 UNITS/ML 10ML VIAL ONE (12:18)
[2019-02-28] MEDS ORDERED: POTASSIUM CHLORIDE TABS 20 MEQ TABLET.ER (FP) PO ONE (12:30)
--- NOTE | 2019-02-28 12:36 | PN ---
Progress Note, Physician History of Present Illness: Pt states he feels "ok". Pain in foot is controlled. Temp off 99.7F early am, afebrile currently. No specific compaints. - Current Medication List Current Medications: Active Medications Acetaminophen (Tylenol -) 650 mg PO Q6H PRN PRN Reason: FEVER Amlodipine Besylate (Norvasc -) 5 mg PO DAILY [facility] Last Admin: 02/28/19 10:03 Dose: 5 mg Aspirin (Ecotrin -) 81 mg PO DAILY [facility] Last Admin: 02/28/19 10:03 Dose: 81 mg Fentanyl (Sublimaze Injection -) 50 mcg IVPUSH Q5M PRN PRN Reason: PAIN-PACU ORDER X 4 DOSES ONLY Heparin Sodium (Porcine) (Heparin -) 5,000 unit SQ BID [facility] Last Admin: 02/28/19 10:05 Dose: 5,000 unit Hydrochlorothiazide (Hctz -) 25 mg PO BID [facility] Last Admin: 02/28/19 10:03 Dose: 25 mg Piperacillin Sod/Tazobactam (Sod 3.375 gm/ Dextrose) 50 mls @ 100 mls/hr IVPB Q8H-IV [facility]; Protocol Last Admin: 02/28/19 10:54 Dose: 100 mls/hr Insulin Aspart (Novolog Vial Sliding Scale -) 1 vial SQ ACHS [facility]; Protocol Last Admin: 02/28/19 06:55 Dose: Not Given Insulin Detemir (Levemir Vial) 30 units SQ BID [facility] Last Admin: 02/28/19 10:54 Dose: 30 units Metformin HCl (Glucophage -) 500 mg PO BIDAC [facility] Last Admin: 02/28/19 06:55 Dose: 500 mg Metoprolol Succinate (Toprol Xl -) 25 mg PO DAILY [facility] Last Admin: 02/28/19 10:03 Dose: 25 mg Ondansetron HCl (Zofran Injection) 4 mg IVPUSH Q6H PRN PRN Reason: NAUSEA AND/OR VOMITING Oxycodone HCl (Roxicodone -) 10 mg PO Q4H PRN PRN Reason: PAIN LEVEL 6-10 Last Admin: 02/27/19 22:44 Dose: 10 mg Pantoprazole Sodium (Protonix -) 40 mg PO BID [facility] Last Admin: 02/28/19 10:03 Dose: 40 mg Promethazine HCl (Phenergan Injection -) 12.5 mg IVPUSH Q6H PRN PRN Reason: NAUSEA-FOR RESCUE AFTER 15 MIN Vancomycin HCl (Vancomycin (Pre-Docked)) 1,000 mg IVPB Q12H [facility] Last Admin: 02/28/19 07:56 Dose: 1,000 mg - Objective Vital Signs: Vital Signs Temperature 98.5 F 02/28/19 10:00 Pulse Rate 92 H 02/28/19 10:00 Respiratory Rate 20 02/28/19 10:00 Blood Pressure 139/63 02/28/19 10:00 O2 Sat by Pulse Oximetry (%) 95 02/27/19 21:00 Constitutional: Yes: No Distress, Calm Cardiovascular: Yes: Regular Rate and Rhythm Respiratory: Yes: Regular Gastrointestinal: Yes: Normal Bowel Sounds, Soft, Abdomen, Obese Wound/Incision: Yes: Other (foot dressing intact, +foot edema/erythema/mild tenderness) Neurological: Yes: Alert Labs: CBC, BMP 02/28/19 06:35 02/28/19 06:35 INR, PTT INR 1.15 (0.83-1.09) H 02/25/19 22:57 Microbiology 02/26/19 17:20 Foot - Left Gram Stain - Final 02/26/19 17:20 Foot - Left Wound Culture - Preliminary Beta Hemolytic Strep Diphtheroid/Corynebacterium 02/25/19 22:57 Blood - Peripheral Venous Blood Culture - Preliminary NO GROWTH OBTAINED AFTER 48 HOURS, INCUBATION TO CONTINUE FOR 3 DAYS. 02/25/19 22:57 Blood - Peripheral Venous Blood Culture - Preliminary NO GROWTH OBTAINED AFTER 48 HOURS, INCUBATION TO CONTINUE FOR 3 DAYS. 02/25/19 22:57 Wound Gram Stain - Final 02/25/19 22:57 Wound Wound Culture - Preliminary Staphylococcus Coagulase Neg Pending Organism Pending Organism#2 Pending Organism#3 Problem List - Problems (1) Cellulitis of foot, left Code(s): L03.116 - CELLULITIS OF LEFT LOWER LIMB (2) Diabetic foot ulcer Code(s): E11.621 - TYPE 2 DIABETES MELLITUS WITH FOOT ULCER; L97.509 - NON- PRESSURE CHRONIC ULCER OTH PRT UNSP FOOT W UNSP SEVERITY (3) CKD (chronic kidney disease) Code(s): N18.9 - CHRONIC KIDNEY DISEASE, UNSPECIFIED (4) Diabetes Code(s): E11.9 - TYPE 2 DIABETES MELLITUS WITHOUT COMPLICATIONS Qualifiers: Diabetes mellitus type: other specified (including LASHAY) Diabetes mellitus shelter insulin use: unspecified shelter insulin use status Diabetes mellitus complication status: with hyperglycemia Qualified Code(s): E13.65 - Other specified diabetes mellitus with hyperglycemia (5) HTN (hypertension) Code(s): I10 - ESSENTIAL (PRIMARY) HYPERTENSION (6) Morbid obesity Code(s): E66.01 - MORBID (SEVERE) OBESITY DUE TO EXCESS CALORIES (7) Peripheral neuropathy Code(s): G62.9 - POLYNEUROPATHY, UNSPECIFIED (8) Sepsis Code(s): A41.9 - SEPSIS, UNSPECIFIED ORGANISM Qualifiers: Sepsis type: sepsis due to unspecified organism Qualified Code(s): A41.9 - Sepsis, unspecified organism Assessment/Plan Lt foot abscess s/p I+D POD#2 Fever Leukocytosis DM CKD Hx of Lt foot OM Morbid obesity -- continue Zosyn/Vancomycin for now -- f/u wound culture results pending -- continue monitor temp trend -- continue monitor temps/wbc trend trending down -- continue wound care -- Podiatry following
--- NOTE | 2019-02-28 13:02 | PN ---
Progress Note, Physician Chief Complaint: Upon further discussing with patient how this transpired he stated Dr. Becerra removed glass from his foot and injected with abx in office on Saturday then on Saturday. - Current Medication List Current Medications: Active Medications Acetaminophen (Tylenol -) 650 mg PO Q6H PRN PRN Reason: FEVER Amlodipine Besylate (Norvasc -) 5 mg PO DAILY [facility] Last Admin: 02/28/19 10:03 Dose: 5 mg Aspirin (Ecotrin -) 81 mg PO DAILY [facility] Last Admin: 02/28/19 10:03 Dose: 81 mg Fentanyl (Sublimaze Injection -) 50 mcg IVPUSH Q5M PRN PRN Reason: PAIN-PACU ORDER X 4 DOSES ONLY Heparin Sodium (Porcine) (Heparin -) 5,000 unit SQ BID [facility] Last Admin: 02/28/19 10:05 Dose: 5,000 unit Hydrochlorothiazide (Hctz -) 25 mg PO BID [facility] Last Admin: 02/28/19 10:03 Dose: 25 mg Piperacillin Sod/Tazobactam (Sod 3.375 gm/ Dextrose) 50 mls @ 100 mls/hr IVPB Q8H-IV [facility]; Protocol Last Admin: 02/28/19 10:54 Dose: 100 mls/hr Insulin Aspart (Novolog Vial Sliding Scale -) 1 vial SQ ACHS [facility]; Protocol Last Admin: 02/28/19 12:31 Dose: 4 units Insulin Detemir (Levemir Vial) 30 units SQ BID [facility] Last Admin: 02/28/19 10:54 Dose: 30 units Metformin HCl (Glucophage -) 500 mg PO BIDAC [facility] Last Admin: 02/28/19 06:55 Dose: 500 mg Metoprolol Succinate (Toprol Xl -) 25 mg PO DAILY [facility] Last Admin: 02/28/19 10:03 Dose: 25 mg Ondansetron HCl (Zofran Injection) 4 mg IVPUSH Q6H PRN PRN Reason: NAUSEA AND/OR VOMITING Oxycodone HCl (Roxicodone -) 10 mg PO Q4H PRN PRN Reason: PAIN LEVEL 6-10 Last Admin: 02/27/19 22:44 Dose: 10 mg Pantoprazole Sodium (Protonix -) 40 mg PO BID [facility] Last Admin: 02/28/19 10:03 Dose: 40 mg Promethazine HCl (Phenergan Injection -) 12.5 mg IVPUSH Q6H PRN PRN Reason: NAUSEA-FOR RESCUE AFTER 15 MIN Vancomycin HCl (Vancomycin (Pre-Docked)) 1,000 mg IVPB Q12H [facility] Last Admin: 02/28/19 07:56 Dose: 1,000 mg - Objective Vital Signs: Vital Signs Temperature 98.5 F 02/28/19 10:00 Pulse Rate 92 H 02/28/19 10:00 Respiratory Rate 20 02/28/19 10:00 Blood Pressure 139/63 02/28/19 10:00 O2 Sat by Pulse Oximetry (%) 95 02/27/19 21:00 Extremities: Yes: Other (+creamy white drainage noted after packing pulled, - mal odor, +improved cellultis, wbc improved as well, no evidence of glass) Labs: CBC, BMP 02/28/19 06:35 02/28/19 06:35 INR, PTT INR 1.15 (0.83-1.09) H 02/25/19 22:57 Assessment/Plan resolving abscess cellulitis charcot foot left neuropathy foreign body removed by PMD in office Packing pulled. Wound debrided bedside using sterile scissors and pickup. Betadine irrigation. Drainage expressed. Redressed with betadine. MRI ordered for possible foreign body remnants deeper. will follow.
--- NOTE | 2019-02-28 19:08 | PN ---
Progress Note, Physician History of Present Illness: Pt spiked to 100.5 - Current Medication List Current Medications: Active Medications Acetaminophen (Tylenol -) 650 mg PO Q6H PRN PRN Reason: FEVER Amlodipine Besylate (Norvasc -) 5 mg PO DAILY [facility] Last Admin: 02/28/19 10:03 Dose: 5 mg Aspirin (Ecotrin -) 81 mg PO DAILY [facility] Last Admin: 02/28/19 10:03 Dose: 81 mg Fentanyl (Sublimaze Injection -) 50 mcg IVPUSH Q5M PRN PRN Reason: PAIN-PACU ORDER X 4 DOSES ONLY Heparin Sodium (Porcine) (Heparin -) 5,000 unit SQ BID [facility] Last Admin: 02/28/19 10:05 Dose: 5,000 unit Hydrochlorothiazide (Hctz -) 25 mg PO BID [facility] Last Admin: 02/28/19 10:03 Dose: 25 mg Piperacillin Sod/Tazobactam (Sod 3.375 gm/ Dextrose) 50 mls @ 100 mls/hr IVPB Q8H-IV [facility]; Protocol Last Admin: 02/28/19 17:10 Dose: 100 mls/hr Insulin Aspart (Novolog Vial Sliding Scale -) 1 vial SQ ACHS [facility]; Protocol Last Admin: 02/28/19 17:08 Dose: 4 units Insulin Detemir (Levemir Vial) 30 units SQ BID [facility] Last Admin: 02/28/19 10:54 Dose: 30 units [facility] Last Admin: 02/28/19 17:10 Dose: 500 mg Metoprolol Succinate (Toprol Xl -) 25 mg PO DAILY [facility] Last Admin: 02/28/19 10:03 Dose: 25 mg Ondansetron HCl (Zofran Injection) 4 mg IVPUSH Q6H PRN PRN Reason: NAUSEA AND/OR VOMITING Oxycodone HCl (Roxicodone -) 10 mg PO Q4H PRN PRN Reason: PAIN LEVEL 6-10 Last Admin: 02/27/19 22:44 Dose: 10 mg Pantoprazole Sodium (Protonix -) 40 mg PO BID [facility] Last Admin: 02/28/19 10:03 Dose: 40 mg Promethazine HCl (Phenergan Injection -) 12.5 mg IVPUSH Q6H PRN PRN Reason: NAUSEA-FOR RESCUE AFTER 15 MIN Vancomycin HCl (Vancomycin (Pre-Docked)) 1,000 mg IVPB Q12H [facility] Last Admin: 02/28/19 07:56 Dose: 1,000 mg - Objective Vital Signs: Vital Signs Temperature 99.5 F 02/28/19 17:48 Pulse Rate 94 H 02/28/19 17:48 Respiratory Rate 02/28/19 17:48 Blood Pressure 151/80 02/28/19 17:48 O2 Sat by Pulse Oximetry (%) 93 L 02/28/19 09:00 HENT: Yes: WNL Neck: Yes: WNL, Supple Cardiovascular: Yes: WNL, Regular Rate and Rhythm Respiratory: Yes: WNL, Regular, CTA Bilaterally Gastrointestinal: Yes: WNL, Normal Bowel Sounds, Soft, Abdomen, Obese Extremities: Yes: Other (Lt foot w/ dressing Lt foot w/ erythema) Labs: CBC, BMP 02/28/19 06:35 02/28/19 06:35 INR, PTT INR 1.15 (0.83-1.09) H 02/25/19 22:57 Problem List - Problems (1) Diabetic foot ulcer Assessment/Plan: Abscess/cellulitis lt foot S/P I&D lt foot Cont IV vanco/zosyn Cont wound care Blood cultures remain negative Code(s): E11.621 - TYPE 2 DIABETES MELLITUS WITH FOOT ULCER; L97.509 - NON- PRESSURE CHRONIC ULCER OTH PRT UNSP FOOT W UNSP SEVERITY (2) Diabetes Assessment/Plan: Cont levemir/metformin Cont sliding scale w/ coverage Code(s): E11.9 - TYPE 2 DIABETES MELLITUS WITHOUT COMPLICATIONS Qualifiers: Diabetes mellitus type: other specified (including LASHAY) Diabetes mellitus salvage determiner insulin use: unspecified salvage determiner insulin use status Diabetes mellitus complication status: with hyperglycemia Qualified Code(s): E13.65 - Other specified diabetes mellitus with hyperglycemia (3) CKD (chronic kidney disease) Code(s): N18.9 - CHRONIC KIDNEY DISEASE, UNSPECIFIED (4) HTN (hypertension) Assessment/Plan: BP stable Cont metoprolol/norvasc/Hctz/asa Code(s): I10 - ESSENTIAL (PRIMARY) HYPERTENSION (5) Morbid obesity Code(s): E66.01 - MORBID (SEVERE) OBESITY DUE TO EXCESS CALORIES (6) Peripheral neuropathy Code(s): G62.9 - POLYNEUROPATHY, UNSPECIFIED
[2019-02-28] MEDS: ACETAMINOPHEN 325 MG TABLET (FP) PO PRN (21:54)
[2019-03-01] MEDS ORDERED: DEXTROSE 5%-WATER - 50 ML IVPB ONE ×3 (00:46→16:46)
[2019-03-01] MEDS ORDERED: PIPERACILLIN/TAZOBACTAM 3.375 GM VIAL IVPB ONE ×3 (00:46→16:46)
[2019-03-01] MEDS: PIPERACILLIN/TAZOB 3.375 GM 3.375 GM in DEXTROSE 5%-WATER - 50 ML IVPB SCH ×3 (01:47→19:45)
[2019-03-01] MEDS: metFORMIN HCL 500 MG TABLET (FP) PO SCH ×2 (06:50→17:07)
[2019-03-01] MEDS: INSULIN SLIDING SCALE (NOVOLOG) 1 VIAL SQ SCH ×3 (06:50→16:23)
[2019-03-01 07:14] LABS: BASO % 0.6 % (0-2.0); EOS % 0.8 % (0-4.5); HEMATOCRIT 33.6 % (35.4-49); HEMOGLOBIN 10.7 GM/dL (11.7-16.9); LYMPH % 10.7 % (8-40); MCH 24.4 pg (25.7-33.7); MCHC 31.9 g/dl (32.0-35.9); MEAN CELL VOLUME 76.5 fl (80-96); MEAN PLT VOLUME 8.1 fl (7.5-11.1); MONO % 8.2 % (3.8-10.2); NEUT % 79.7 % (42.8-82.8); PLATELET COUNT 392 K/MM3 (134-434); RBC 4.39 M/mm3 (4.00-5.60); RDW 17.4 % (11.9-15.9); WHITE BLOOD COUNT 12.3 K/mm3 (4.0-10.0)
[2019-03-01 07:44] LABS: ALBUMIN 2.3 g/dl (3.4-5.0); BILIRUBIN,TOTAL 0.4 mg/dL (0.2-1); BLOOD UREA NITROGEN 13.4 mg/dL (7-18); CALCIUM 8.4 mg/dL (8.5-10.1); CREATININE 0.8 mg/dL (0.55-1.3); POTASSIUM 3.5 mmol/L (3.5-5.1); TOT PROT 6.7 g/dl (6.4-8.2)
[2019-03-01] MEDS: VANCOMYCIN 1 GM in D5W (PRE-DOCKED) 1,000 MG/250 ML IVPB SCH ×2 (08:11→21:15)
[2019-03-01] MEDS: HYDROCHLOROTHIAZIDE 25 MG TABLET (FP) PO SCH ×2 (09:13→23:20)
[2019-03-01] MEDS: metoPROLOL SUCCINATE 25 MG TAB.SR.24H (FP) PO SCH (09:13)
[2019-03-01] MEDS: PANTOPRAZOLE 40 MG TABLET (FP) PO SCH ×2 (09:14→23:20)
[2019-03-01] MEDS: amLODIPine BESYLATE 5 MG TABLET (FP) PO SCH (09:14)
[2019-03-01] MEDS: ASPIRIN COATED 81 MG TABLET.EC PO SCH (09:15)
[2019-03-01] MEDS: INSULIN (LEVEMIR) 100 UNITS/ML UNITS SQ SCH ×2 (09:20→23:58)
[2019-03-01] MEDS: HEPARIN NA (PORCINE) 5,000 UNITS/ML 1ML VIAL SQ SCH (09:21)
[2019-03-01] MEDS ORDERED: INSULIN (NOVOLOG) ASPART 100 UNITS/ML 10ML VIAL ONE (11:14)
--- NOTE | 2019-03-01 13:46 | PN ---
Progress Note, Physician History of Present Illness: Pt c/o pain in Lt foot. Still remains swollen and warm. He had debridement of ulcer yesterday at bedside. Temp noted to be 100.5F in the evening, currently 99F. MRI results noted. - Current Medication List Current Medications: Active Medications Acetaminophen (Tylenol -) 650 mg PO Q6H PRN PRN Reason: FEVER Last Admin: 02/28/19 21:54 Dose: 650 mg Amlodipine Besylate (Norvasc -) 5 mg PO DAILY [facility] Last Admin: 03/01/19 09:14 Dose: 5 mg Aspirin (Ecotrin -) 81 mg PO DAILY [facility] Last Admin: 03/01/19 09:15 Dose: 81 mg Fentanyl (Sublimaze Injection -) 50 mcg IVPUSH Q5M PRN PRN Reason: PAIN-PACU ORDER X 4 DOSES ONLY Heparin Sodium (Porcine) (Heparin -) 5,000 unit SQ BID [facility] Last Admin: 03/01/19 09:21 Dose: 5,000 unit Hydrochlorothiazide (Hctz -) 25 mg PO BID [facility] Last Admin: 03/01/19 09:13 Dose: 25 mg Piperacillin Sod/Tazobactam (Sod 3.375 gm/ Dextrose) 50 mls @ 100 mls/hr IVPB Q8H-IV [facility]; Protocol Last Admin: 03/01/19 11:02 Dose: 100 mls/hr Insulin Aspart (Novolog Vial Sliding Scale -) 1 vial SQ ACHS [facility]; Protocol Last Admin: 03/01/19 12:08 Dose: 4 units Insulin Detemir (Levemir Vial) 30 units SQ BID [facility] Last Admin: 03/01/19 09:20 Dose: 30 units Metformin HCl (Glucophage -) 500 mg PO BIDAC [facility] Last Admin: 03/01/19 06:50 Dose: 500 mg Metoprolol Succinate (Toprol Xl -) 25 mg PO DAILY [facility] Last Admin: 03/01/19 09:13 Dose: 25 mg Ondansetron HCl (Zofran Injection) 4 mg IVPUSH Q6H PRN PRN Reason: NAUSEA AND/OR VOMITING Oxycodone HCl (Roxicodone -) 10 mg PO Q4H PRN PRN Reason: PAIN LEVEL 6-10 Last Admin: 02/27/19 22:44 Dose: 10 mg Pantoprazole Sodium (Protonix -) 40 mg PO BID [facility] Last Admin: 03/01/19 09:14 Dose: 40 mg Promethazine HCl (Phenergan Injection -) 12.5 mg IVPUSH Q6H PRN PRN Reason: NAUSEA-FOR RESCUE AFTER 15 MIN Vancomycin HCl (Vancomycin (Pre-Docked)) 1,000 mg IVPB Q12H [facility] Last Admin: 03/01/19 08:11 Dose: 1,000 mg - Objective Vital Signs: Vital Signs Temperature 99 F 03/01/19 08:45 Pulse Rate 86 03/01/19 08:45 Respiratory Rate 20 03/01/19 09:00 Blood Pressure 151/73 03/01/19 08:45 O2 Sat by Pulse Oximetry (%) 95 03/01/19 09:00 Constitutional: Yes: No Distress, Calm Cardiovascular: Yes: Regular Rate and Rhythm Respiratory: Yes: Regular Gastrointestinal: Yes: Normal Bowel Sounds, Soft, Abdomen, Obese Genitourinary: Yes: WNL Wound/Incision: Yes: Other (Lt foot edema/warmth, no tenderness noted. +ulcer with fibrinous tissue/drainage.) Neurological: Yes: Alert, Oriented Labs: CBC, BMP 03/01/19 06:45 03/01/19 06:45 INR, PTT INR 1.15 (0.83-1.09) H 02/25/19 22:57 Microbiology 02/26/19 17:20 Foot - Left Gram Stain - Final 02/26/19 17:20 Foot - Left Wound Culture - Preliminary Beta Hem Streptococcus Group C Diphtheroid/Corynebacterium Staphylococcus Coagulase Neg 02/25/19 22:57 Wound Gram Stain - Final 02/25/19 22:57 Wound Wound Culture - Preliminary Staphylococcus Coagulase Neg Staphylococcus Aureus Enterococcus Faecalis 02/25/19 22:57 Blood - Peripheral Venous Blood Culture - Preliminary NO GROWTH OBTAINED AFTER 72 HOURS, INCUBATION TO CONTINUE FOR 2 DAYS. 02/25/19 22:57 Blood - Peripheral Venous Blood Culture - Preliminary NO GROWTH OBTAINED AFTER 72 HOURS, INCUBATION TO CONTINUE FOR 2 DAYS. - ....Imaging MRI: Report Reviewed Problem List - Problems (1) Cellulitis of foot, left Code(s): L03.116 - CELLULITIS OF LEFT LOWER LIMB (2) Diabetic foot ulcer Code(s): E11.621 - TYPE 2 DIABETES MELLITUS WITH FOOT ULCER; L97.509 - NON- PRESSURE CHRONIC ULCER OTH PRT UNSP FOOT W UNSP SEVERITY (3) CKD (chronic kidney disease) Code(s): N18.9 - CHRONIC KIDNEY DISEASE, UNSPECIFIED (4) Diabetes Code(s): E11.9 - TYPE 2 DIABETES MELLITUS WITHOUT COMPLICATIONS Qualifiers: Diabetes mellitus type: other specified (including LASHAY) Diabetes mellitus fdc insulin use: unspecified intermodal customer service insulin use status Diabetes mellitus complication status: with hyperglycemia Qualified Code(s): E13.65 - Other specified diabetes mellitus with hyperglycemia (5) HTN (hypertension) Code(s): I10 - ESSENTIAL (PRIMARY) HYPERTENSION (6) Morbid obesity Code(s): E66.01 - MORBID (SEVERE) OBESITY DUE TO EXCESS CALORIES (7) Peripheral neuropathy Code(s): G62.9 - POLYNEUROPATHY, UNSPECIFIED (8) Sepsis Code(s): A41.9 - SEPSIS, UNSPECIFIED ORGANISM Qualifiers: Sepsis type: sepsis due to unspecified organism Qualified Code(s): A41.9 - Sepsis, unspecified organism Assessment/Plan Lt foot cellulitis/ abscess s/p I+D POD#3 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 -- continue monitor temps/wbc trend -- if fevers persist/wbc trends up will adjust antibiotics -- continue wound care -- Podiatry following
--- NOTE | 2019-03-01 15:31 | PN ---
Progress Note, Physician Chief Complaint: FUV left foot. - Current Medication List Current Medications: Active Medications Acetaminophen (Tylenol -) 650 mg PO Q6H PRN PRN Reason: FEVER Last Admin: 02/28/19 21:54 Dose: 650 mg Amlodipine Besylate (Norvasc -) 5 mg PO DAILY [facility] Last Admin: 03/01/19 09:14 Dose: 5 mg Aspirin (Ecotrin -) 81 mg PO DAILY [facility] Last Admin: 03/01/19 09:15 Dose: 81 mg Fentanyl (Sublimaze Injection -) 50 mcg IVPUSH Q5M PRN PRN Reason: PAIN-PACU ORDER X 4 DOSES ONLY Heparin Sodium (Porcine) (Heparin -) 5,000 unit SQ BID [facility] Last Admin: 03/01/19 09:21 Dose: 5,000 unit Hydrochlorothiazide (Hctz -) 25 mg PO BID [facility] Last Admin: 03/01/19 09:13 Dose: 25 mg Piperacillin Sod/Tazobactam (Sod 3.375 gm/ Dextrose) 50 mls @ 100 mls/hr IVPB Q8H-IV [facility]; Protocol Last Admin: 03/01/19 11:02 Dose: 100 mls/hr Insulin Aspart (Novolog Vial Sliding Scale -) 1 vial SQ ACHS [facility]; Protocol Last Admin: 03/01/19 12:08 Dose: 4 units Insulin Detemir (Levemir Vial) 30 units SQ BID [facility] Last Admin: 03/01/19 09:20 Dose: 30 units Metformin HCl (Glucophage -) 500 mg PO BIDAC [facility] Last Admin: 03/01/19 06:50 Dose: 500 mg Metoprolol Succinate (Toprol Xl -) 25 mg PO DAILY [facility] Last Admin: 03/01/19 09:13 Dose: 25 mg Ondansetron HCl (Zofran Injection) 4 mg IVPUSH Q6H PRN PRN Reason: NAUSEA AND/OR VOMITING Oxycodone HCl (Roxicodone -) 10 mg PO Q4H PRN PRN Reason: PAIN LEVEL 6-10 Last Admin: 02/27/19 22:44 Dose: 10 mg Pantoprazole Sodium (Protonix -) 40 mg PO BID [facility] Last Admin: 03/01/19 09:14 Dose: 40 mg Promethazine HCl (Phenergan Injection -) 12.5 mg IVPUSH Q6H PRN PRN Reason: NAUSEA-FOR RESCUE AFTER 15 MIN Vancomycin HCl (Vancomycin (Pre-Docked)) 1,000 mg IVPB Q12H [facility] Last Admin: 03/01/19 08:11 Dose: 1,000 mg - Objective Vital Signs: Vital Signs Temperature 99 F 03/01/19 08:45 Pulse Rate 86 03/01/19 08:45 Respiratory Rate 20 03/01/19 09:00 Blood Pressure 151/73 03/01/19 08:45 O2 Sat by Pulse Oximetry (%) 95 03/01/19 09:00 Extremities: Yes: Other (+drainage creamy white today 5cc, -mal odor, wbc elevated from yesterday, no abscess on MRI, no foreign body noted,) Labs: CBC, BMP 03/01/19 06:45 03/01/19 06:45 INR, PTT INR 1.15 (0.83-1.09) H 02/25/19 22:57 Assessment/Plan creamy white drainage cellulitis charcot foot left neuropathy developing abscess? Wound debrided bedside using sterile scissors and pickup. Incision made larger distally and proximally. Betadine salne irrigation. Packed with 1/4 inch iodoform packing put in place. Redressed with betadine. will follow. cbc with diff. INR ordered. NPO after midnight. If does not look better tomorrow will take back to OR and explore wound for possible foreign boday and drain any fluid collection. Abx as per ID. Wound culture done today. Patient fully understands proposed treatment plan. Please maximize for possible OR.
[2019-03-01] MEDS: ACETAMINOPHEN 325 MG TABLET (FP) PO PRN (17:47)
[2019-03-01 20:36] LABS: BASO % 0.3 % (0-2.0); EOS % 0.5 % (0-4.5); HEMATOCRIT 33.5 % (35.4-49); HEMOGLOBIN 10.7 GM/dL (11.7-16.9); LYMPH % 9.9 % (8-40); MCH 24.7 pg (25.7-33.7); MCHC 32.1 g/dl (32.0-35.9); MEAN PLT VOLUME 8.1 fl (7.5-11.1); MONO % 6.8 % (3.8-10.2); NEUT % 82.5 % (42.8-82.8); PLATELET COUNT 440 K/MM3 (134-434); RBC 4.35 M/mm3 (4.00-5.60); RDW 17.5 % (11.9-15.9); WHITE BLOOD COUNT 14.6 K/mm3 (4.0-10.0)
--- NOTE | 2019-03-01 20:49 | PN ---
Progress Note, Physician History of Present Illness: Pt w/ increased pain - Current Medication List Current Medications: Active Medications Acetaminophen (Tylenol -) 650 mg PO Q6H PRN PRN Reason: FEVER Last Admin: 03/01/19 17:47 Dose: 650 mg Amlodipine Besylate (Norvasc -) 5 mg PO DAILY [facility] Last Admin: 03/01/19 09:14 Dose: 5 mg Aspirin (Ecotrin -) 81 mg PO DAILY [facility] Last Admin: 03/01/19 09:15 Dose: 81 mg Fentanyl (Sublimaze Injection -) 50 mcg IVPUSH Q5M PRN PRN Reason: PAIN-PACU ORDER X 4 DOSES ONLY Heparin Sodium (Porcine) (Heparin -) 5,000 unit SQ BID [facility] Last Admin: 03/01/19 09:21 Dose: 5,000 unit Hydrochlorothiazide (Hctz -) 25 mg PO BID [facility] Last Admin: 03/01/19 09:13 Dose: 25 mg Piperacillin Sod/Tazobactam (Sod 3.375 gm/ Dextrose) 50 mls @ 100 mls/hr IVPB Q8H-IV [facility]; Protocol Last Admin: 03/01/19 19:45 Dose: 100 mls/hr Insulin Aspart (Novolog Vial Sliding Scale -) 1 vial SQ ACHS [facility]; Protocol Last Admin: 03/01/19 16:23 Dose: 2 units Insulin Detemir (Levemir Vial) 30 units SQ BID [facility] Last Admin: 03/01/19 09:20 Dose: 30 units Metformin HCl (Glucophage -) 500 mg PO BIDAC [facility] Last Admin: 03/01/19 17:07 Dose: 500 mg Metoprolol Succinate (Toprol Xl -) 25 mg PO DAILY [facility] Last Admin: 03/01/19 09:13 Dose: 25 mg Ondansetron HCl (Zofran Injection) 4 mg IVPUSH Q6H PRN PRN Reason: NAUSEA AND/OR VOMITING Oxycodone HCl (Roxicodone -) 10 mg PO Q4H PRN PRN Reason: PAIN LEVEL 6-10 Last Admin: 02/27/19 22:44 Dose: 10 mg Pantoprazole Sodium (Protonix -) 40 mg PO BID [facility] Last Admin: 03/01/19 09:14 Dose: 40 mg Promethazine HCl (Phenergan Injection -) 12.5 mg IVPUSH Q6H PRN PRN Reason: NAUSEA-FOR RESCUE AFTER 15 MIN Vancomycin HCl (Vancomycin (Pre-Docked)) 1,000 mg IVPB Q12H [facility] Last Admin: 03/01/19 08:11 Dose: 1,000 mg - Objective Vital Signs: Vital Signs Temperature 100.8 F H 03/01/19 18:00 Pulse Rate 73 03/01/19 18:00 Respiratory Rate 20 03/01/19 18:00 Blood Pressure 148/65 03/01/19 18:00 O2 Sat by Pulse Oximetry (%) 95 03/01/19 09:00 Constitutional: Yes: Obese Neck: Yes: WNL, Supple Cardiovascular: Yes: WNL, Regular Rate and Rhythm Respiratory: Yes: WNL, Regular, CTA Bilaterally Gastrointestinal: Yes: WNL, Normal Bowel Sounds, Soft, Abdomen, Obese Extremities: Yes: Other (Lt foot in dressing w/ drainage) Labs: CBC, BMP 03/01/19 06:45 INR, PTT INR 1.15 (0.83-1.09) H 02/25/19 22:57 Problem List - Problems (1) Diabetic foot ulcer Assessment/Plan: Abscess/cellulitis lt foot S/P I&D lt foot Cont IV vanco/zosyn Cont wound care Blood cultures remain negative Code(s): E11.621 - TYPE 2 DIABETES MELLITUS WITH FOOT ULCER; L97.509 - NON- PRESSURE CHRONIC ULCER OTH PRT UNSP FOOT W UNSP SEVERITY (2) Diabetes Assessment/Plan: Cont levemir/metformin Cont sliding scale w/ coverage Code(s): E11.9 - TYPE 2 DIABETES MELLITUS WITHOUT COMPLICATIONS Qualifiers: Diabetes mellitus type: other specified (including LASHAY) Diabetes mellitus long-term insulin use: unspecified long-term insulin use status Diabetes mellitus complication status: with hyperglycemia Qualified Code(s): E13.65 - Other specified diabetes mellitus with hyperglycemia (3) CKD (chronic kidney disease) Code(s): N18.9 - CHRONIC KIDNEY DISEASE, UNSPECIFIED (4) HTN (hypertension) Assessment/Plan: BP stable Cont metoprolol/norvasc/Hctz/asa Code(s): I10 - ESSENTIAL (PRIMARY) HYPERTENSION (5) Morbid obesity Code(s): E66.01 - MORBID (SEVERE) OBESITY DUE TO EXCESS CALORIES (6) Peripheral neuropathy Code(s): G62.9 - POLYNEUROPATHY, UNSPECIFIED
[2019-03-02] MEDS: INSULIN SLIDING SCALE (NOVOLOG) 1 VIAL SQ SCH ×5 (00:32→23:11)
[2019-03-02] MEDS: HEPARIN NA (PORCINE) 5,000 UNITS/ML 1ML VIAL SQ SCH ×2 (00:32→23:03)
[2019-03-02] MEDS ORDERED: DEXTROSE 5%-WATER - 50 ML IVPB ONE ×3 (00:44→16:20)
[2019-03-02] MEDS ORDERED: PIPERACILLIN/TAZOBACTAM 3.375 GM VIAL IVPB ONE ×3 (00:44→16:20)
[2019-03-02] MEDS: PIPERACILLIN/TAZOB 3.375 GM 3.375 GM in DEXTROSE 5%-WATER - 50 ML IVPB SCH ×3 (02:43→17:05)
[2019-03-02] MEDS: metFORMIN HCL 500 MG TABLET (FP) PO SCH ×2 (06:27→16:27)
[2019-03-02 08:00] LABS: BASO % 0.5 % (0-2.0); BLOOD UREA NITROGEN 13.3 mg/dL (7-18); CALCIUM 8.9 mg/dL (8.5-10.1); CREATININE 0.8 mg/dL (0.55-1.3); EOS % 1.5 % (0-4.5); HEMATOCRIT 34.1 % (35.4-49); HEMOGLOBIN 11.1 GM/dL (11.7-16.9); LYMPH % 15.1 % (8-40); MCH 24.9 pg (25.7-33.7); MCHC 32.5 g/dl (32.0-35.9); MEAN CELL VOLUME 76.9 fl (80-96); MEAN PLT VOLUME 7.9 fl (7.5-11.1); MONO % 7.8 % (3.8-10.2); NEUT % 75.1 % (42.8-82.8); PLATELET COUNT 425 K/MM3 (134-434); POTASSIUM 3.9 mmol/L (3.5-5.1); RBC 4.43 M/mm3 (4.00-5.60); RDW 17.4 % (11.9-15.9); WHITE BLOOD COUNT 10.7 K/mm3 (4.0-10.0)
[2019-03-02 08:06] LABS: INR 1.07 (0.83-1.09); PROTHROMBIN TIME (PATIENT) 12.6 SEC (9.7-13.0)
[2019-03-02] MEDS: VANCOMYCIN 1 GM in D5W (PRE-DOCKED) 1,000 MG/250 ML IVPB SCH ×2 (08:08→20:15)
[2019-03-02] MEDS: PANTOPRAZOLE 40 MG TABLET (FP) PO SCH ×2 (09:50→23:02)
[2019-03-02] MEDS: HYDROCHLOROTHIAZIDE 25 MG TABLET (FP) PO SCH ×2 (09:50→23:02)
[2019-03-02] MEDS: metoPROLOL SUCCINATE 25 MG TAB.SR.24H (FP) PO SCH (09:50)
[2019-03-02] MEDS: amLODIPine BESYLATE 5 MG TABLET (FP) PO SCH (09:50)
--- NOTE | 2019-03-02 11:10 | PN ---
Progress Note, Physician History of Present Illness: patient stable probably for or today - Current Medication List Current Medications: Active Medications Acetaminophen (Tylenol -) 650 mg PO Q6H PRN PRN Reason: FEVER Last Admin: 03/01/19 17:47 Dose: 650 mg Amlodipine Besylate (Norvasc -) 5 mg PO DAILY [facility] Last Admin: 03/02/19 09:50 Dose: 5 mg Aspirin (Ecotrin -) 81 mg PO DAILY [facility] Last Admin: 03/01/19 09:15 Dose: 81 mg Fentanyl (Sublimaze Injection -) 50 mcg IVPUSH Q5M PRN PRN Reason: PAIN-PACU ORDER X 4 DOSES ONLY Heparin Sodium (Porcine) (Heparin -) 5,000 unit SQ BID [facility] Last Admin: 03/02/19 00:32 Dose: 5,000 unit Hydrochlorothiazide (Hctz -) 25 mg PO BID [facility] Last Admin: 03/02/19 09:50 Dose: 25 mg Piperacillin Sod/Tazobactam (Sod 3.375 gm/ Dextrose) 50 mls @ 100 mls/hr IVPB Q8H-IV [facility]; Protocol Last Admin: 03/02/19 02:43 Dose: 100 mls/hr Insulin Aspart (Novolog Vial Sliding Scale -) 1 vial SQ ACHS [facility]; Protocol Last Admin: 03/02/19 06:27 Dose: Not Given Insulin Detemir (Levemir Vial) 30 units SQ BID [facility] Last Admin: 03/01/19 23:58 Dose: Not Given Metformin HCl (Glucophage -) 500 mg PO BIDAC [facility] Last Admin: 03/02/19 06:27 Dose: Not Given Metoprolol Succinate (Toprol Xl -) 25 mg PO DAILY [facility] Last Admin: 03/02/19 09:50 Dose: 25 mg Ondansetron HCl (Zofran Injection) 4 mg IVPUSH Q6H PRN PRN Reason: NAUSEA AND/OR VOMITING Oxycodone HCl (Roxicodone -) 10 mg PO Q4H PRN PRN Reason: PAIN LEVEL 6-10 Last Admin: 02/27/19 22:44 Dose: 10 mg Pantoprazole Sodium (Protonix -) 40 mg PO BID [facility] Last Admin: 03/02/19 09:50 Dose: 40 mg Promethazine HCl (Phenergan Injection -) 12.5 mg IVPUSH Q6H PRN PRN Reason: NAUSEA-FOR RESCUE AFTER 15 MIN Vancomycin HCl (Vancomycin (Pre-Docked)) 1,000 mg IVPB Q12H [facility] Last Admin: 03/02/19 08:08 Dose: 1,000 mg - Objective Vital Signs: Vital Signs Temperature 98.3 F 03/02/19 09:45 Pulse Rate 83 03/02/19 09:45 Respiratory Rate 19 03/02/19 09:45 Blood Pressure 151/79 03/02/19 09:45 O2 Sat by Pulse Oximetry (%) 95 03/01/19 21:00 Constitutional: Yes: No Distress, Calm Cardiovascular: Yes: S1, S2 Respiratory: Yes: Regular, CTA Bilaterally Gastrointestinal: Yes: Normal Bowel Sounds, Soft Musculoskeletal: Yes: WNL Extremities: Yes: Other Wound/Incision: Yes: Dressing Dry and Intact Neurological: Yes: Alert, Oriented Psychiatric: Yes: Alert, Oriented Labs: CBC, BMP 03/02/19 06:30 03/02/19 06:30 INR, PTT INR 1.07 (0.83-1.09) 03/02/19 06:30 Assessment/Plan Problem List - Problems (1) Cellulitis of foot, left Code(s): L03.116 - CELLULITIS OF LEFT LOWER LIMB (2) Diabetic foot ulcer Code(s): E11.621 - TYPE 2 DIABETES MELLITUS WITH FOOT ULCER; L97.509 - NON- PRESSURE CHRONIC ULCER OTH PRT UNSP FOOT W UNSP SEVERITY (3) CKD (chronic kidney disease) Code(s): N18.9 - CHRONIC KIDNEY DISEASE, UNSPECIFIED (4) Diabetes Code(s): E11.9 - TYPE 2 DIABETES MELLITUS WITHOUT COMPLICATIONS Qualifiers: Diabetes mellitus type: other specified (including LASHAY) Diabetes mellitus nurse emergency insulin use: unspecified custodial insulin use status Diabetes mellitus complication status: with hyperglycemia Qualified Code(s): E13.65 - Other specified diabetes mellitus with hyperglycemia (5) HTN (hypertension) Code(s): I10 - ESSENTIAL (PRIMARY) HYPERTENSION (6) Morbid obesity Code(s): E66.01 - MORBID (SEVERE) OBESITY DUE TO EXCESS CALORIES (7) Peripheral neuropathy Code(s): G62.9 - POLYNEUROPATHY, UNSPECIFIED (8) Sepsis Code(s): A41.9 - SEPSIS, UNSPECIFIED ORGANISM Qualifiers: Sepsis type: sepsis due to unspecified organism Qualified Code(s): A41.9 - Sepsis, unspecified organism Assessment/Plan Lt foot cellulitis/ abscess s/p I+D POD#3 Possible Lt 2nd MT head OM Fever Leukocytosis DM CKD Hx of Lt foot OM s/p amp of 3rd/4th/5th toe Morbid obesity -wbc trending down await for debridement continue abx rest as per the team
--- NOTE | 2019-03-02 12:16 | PN ---
Progress Note (short form) - Note Progress Note: Patient is 4 days post op. Patient clarified his doctor outpatient who took glass out of foot was Gal Becerra, zahira Nichols. wbc=10.7, +drainage when dressing taken off, abscess? cellulitis PT to or for I&D and exploration today. Will follow.
[2019-03-02] MEDS ORDERED: MIDAZOLAM HCL 2 MG/2 ML SINGLE DOSE VIAL ONE ×2 (12:34→12:54)
[2019-03-02] MEDS ORDERED: PROPOFOL 20 ML ONE (12:55)
[2019-03-02] MEDS ORDERED: BACITRACIN 50,000 UNITS VIAL TP ONE (13:00)
--- NOTE | 2019-03-02 13:31 | OP ---
Operative Note - Note: Operative Date: 03/02/19 Pre-Operative Diagnosis: Abscess/Cellulitis left foot Operation: Incision and drainage abscess left foot uncontrolled infection. New 10cm incision over dorsum foot over 1st metatarsal. Extended the plantar medial incision distally and proximally to 15cm from 7cm. Exploration of wound. Findings: A new abscess was identified on dorsum of foot over 1st mpj extending into midfoot. Implants: 1 inch iodoform packing Post-Operative Diagnosis: Same as Pre-op Surgeon: Nikunj Galindo Lost Charge Card Clerk: Wilber Lira Anesthesia: MAC Specimens Removed: necrotic tissue and purulent creamy white drainage approximately 5cc dorsal and plantar incisons Estimated Blood Loss (mls): 50 Instrument used (Debridements only): 15 blade and ascalpel handle Operative Report Dictated: No
[2019-03-02] MEDS ORDERED: ONDANSETRON 4 MG/2 ML VIAL IVPUSH PRN (13:43)
[2019-03-02] MEDS ORDERED: ACETAMINOPHEN 325 MG TABLET (FP) PO PRN (13:43)
[2019-03-02] MEDS ORDERED: PROMETHAZINE HCL 25 MG/1 ML VIAL IVPUSH PRN (13:43)
[2019-03-02] MEDS ORDERED: LACTATED RINGERS SOLUTION 1,000 ML IV SCH (15:15)
[2019-03-02] MEDS: oxyCODONE HCL 5 MG TABLET PO PRN ×2 (16:28→23:02)
[2019-03-02] MEDS: ASPIRIN COATED 81 MG TABLET.EC PO SCH (16:58)
--- NOTE | 2019-03-02 17:14 | PATH ---
Surgical Pathology Report Patient Name: CLEMENTE WATSON Med. Rec. #: [id number] /Age/Gender: 1960 (Age: 58) / M Account: [id number] Location: [address] [place] [address]/[facility] Taken: 02/26/2019 Received: 02/27/2019 Reported: 03/02/2019 Physicians: Nikunj Galindo DPM Specimen(s) Received DEBRIDEMENT TISSUE Clinical History Left foot wound ulcer Final Diagnosis DEBRIDED TISSUE, FOOT, LEFT, DEBRIDEMENT: FRAGMENTS OF SQUAMOUS EPITHELIUM WITH ASSOCIATED ACUTE INFLAMMATION AND DETACHED FRAGMENTS OF ACUTE INFLAMMATORY EXUDATE CONSISTENT WITH ULCER BASE. Electronically Signed Mily Lucas M.D. Gross Description Received in formalin labeled "left foot and debrided tissue," is a 6.0 x 3.7 x 0.1 cm aggregate of multiple unoriented portions of debrided skin shaves. Coat Presser sections are submitted in one cassette. /02/27/2019 saudi/02/27/2019
[2019-03-02] MEDS ORDERED: PT OWN MED DRAWER 7, Y5N ONE (17:41)
--- NOTE | 2019-03-02 20:34 | PN ---
Progress Note, Physician History of Present Illness: Pt tolerated procedure - Current Medication List Current Medications: Active Medications Acetaminophen (Tylenol -) 650 mg PO Q6H PRN PRN Reason: FEVER Amlodipine Besylate (Norvasc -) 5 mg PO DAILY [facility] Aspirin (Ecotrin -) 81 mg PO DAILY [facility] Hydrochlorothiazide (Hctz -) 25 mg PO BID [facility] Piperacillin Sod/Tazobactam (Sod 3.375 gm/ Dextrose) 50 mls @ 100 mls/hr IVPB Q8H-IV [facility]; Protocol Last Admin: 03/02/19 17:05 Dose: 100 mls/hr Insulin Aspart (Novolog Vial Sliding Scale -) 1 vial SQ ACHS [facility]; Protocol Last Admin: 03/02/19 16:57 Dose: 2 units Insulin Detemir (Levemir Vial) 30 units SQ BID@0700,2200 [facility] -) [facility] Last Admin: 03/02/19 16:27 Dose: 500 mg Metoprolol Succinate (Toprol Xl -) 25 mg PO DAILY [facility] Ondansetron HCl (Zofran Injection) 4 mg IVPUSH Q6H PRN PRN Reason: NAUSEA AND/OR VOMITING Oxycodone HCl (Roxicodone -) 10 mg PO Q4H PRN PRN Reason: PAIN LEVEL 6-10 Last Admin: 03/02/19 16:28 Dose: 10 mg Pantoprazole Sodium (Protonix -) 40 mg PO BID [facility] Promethazine HCl (Phenergan Injection -) 12.5 mg IVPUSH Q6H PRN PRN Reason: NAUSEA-FOR RESCUE AFTER 15 MIN Vancomycin HCl (Vancomycin (Pre-Docked)) 1,000 mg IVPB Q12H [facility] - Objective Vital Signs: Vital Signs Temperature 99.3 F 03/02/19 18:00 Pulse Rate 90 03/02/19 18:00 Respiratory Rate 18 03/02/19 18:00 Blood Pressure 136/65 03/02/19 18:00 O2 Sat by Pulse Oximetry (%) 98 03/02/19 15:30 Neck: Yes: WNL, Supple Cardiovascular: Yes: WNL, Regular Rate and Rhythm Respiratory: Yes: WNL, Regular, CTA Bilaterally Gastrointestinal: Yes: WNL, Normal Bowel Sounds, Soft, Abdomen, Obese Extremities: Yes: Other (Lt Foot in dressing) Labs: CBC, BMP 03/02/19 06:30 03/02/19 06:30 INR, PTT INR 1.07 (0.83-1.09) 03/02/19 06:30 Problem List - Problems (1) Diabetic foot ulcer Assessment/Plan: Abscess/cellulitis lt foot Pt brought back to OR for debridement S/P I&D lt foot Cont IV vanco/zosyn Cont wound care Blood cultures remain negative Code(s): E11.621 - TYPE 2 DIABETES MELLITUS WITH FOOT ULCER; L97.509 - NON- PRESSURE CHRONIC ULCER OTH PRT UNSP FOOT W UNSP SEVERITY (2) Diabetes Assessment/Plan: Cont levemir/metformin Cont sliding scale w/ coverage Code(s): E11.9 - TYPE 2 DIABETES MELLITUS WITHOUT COMPLICATIONS Qualifiers: Diabetes mellitus type: other specified (including LASHAY) Diabetes mellitus fci insulin use: unspecified fci insulin use status Diabetes mellitus complication status: with hyperglycemia Qualified Code(s): E13.65 - Other specified diabetes mellitus with hyperglycemia (3) CKD (chronic kidney disease) Code(s): N18.9 - CHRONIC KIDNEY DISEASE, UNSPECIFIED (4) HTN (hypertension) Assessment/Plan: BP stable Cont metoprolol/norvasc/Hctz/asa Code(s): I10 - ESSENTIAL (PRIMARY) HYPERTENSION (5) Morbid obesity Code(s): E66.01 - MORBID (SEVERE) OBESITY DUE TO EXCESS CALORIES (6) Peripheral neuropathy Code(s): G62.9 - POLYNEUROPATHY, UNSPECIFIED
[2019-03-02] MEDS: INSULIN (LEVEMIR) 100 UNITS/ML UNITS SQ SCH (23:10)
[2019-03-03] MEDS ORDERED: DEXTROSE 5%-WATER - 50 ML IVPB ONE ×3 (01:16→17:17)
[2019-03-03] MEDS ORDERED: PIPERACILLIN/TAZOBACTAM 3.375 GM VIAL IVPB ONE ×3 (01:16→17:17)
[2019-03-03] MEDS: PIPERACILLIN/TAZOB 3.375 GM 3.375 GM in DEXTROSE 5%-WATER - 50 ML IVPB SCH ×3 (02:47→17:52)
[2019-03-03] MEDS: metFORMIN HCL 500 MG TABLET (FP) PO SCH ×2 (06:46→17:52)
[2019-03-03] MEDS: INSULIN SLIDING SCALE (NOVOLOG) 1 VIAL SQ SCH ×4 (06:46→22:20)
[2019-03-03] MEDS: VANCOMYCIN 1 GM in D5W (PRE-DOCKED) 1,000 MG/250 ML IVPB SCH ×2 (06:47→19:06)
[2019-03-03] MEDS: INSULIN (LEVEMIR) 100 UNITS/ML UNITS SQ SCH ×2 (06:47→22:21)
[2019-03-03 07:38] LABS: BASO % 0.5 % (0-2.0); EOS % 3.3 % (0-4.5); HEMATOCRIT 30.5 % (35.4-49); LYMPH % 16.7 % (8-40); MCH 25.1 pg (25.7-33.7); MCHC 32.8 g/dl (32.0-35.9); MEAN CELL VOLUME 76.3 fl (80-96); MEAN PLT VOLUME 7.8 fl (7.5-11.1); MONO % 6.9 % (3.8-10.2); NEUT % 72.6 % (42.8-82.8); PLATELET COUNT 441 K/MM3 (134-434); RDW 17.4 % (11.9-15.9); WHITE BLOOD COUNT 8.7 K/mm3 (4.0-10.0)
[2019-03-03] MEDS ORDERED: INSULIN (LEVEMIR) 100 UNITS/ML UNITS SQ ONE (08:06)
[2019-03-03] MEDS ORDERED: INSULIN (NOVOLOG) ASPART 100 UNITS/ML 10ML VIAL ONE ×2 (08:06→12:56)
[2019-03-03] MEDS ORDERED: PT OWN MED DRAWER 7, Y5N ONE (08:06)
[2019-03-03 08:50] LABS: ALBUMIN 2.2 g/dl (3.4-5.0); BILIRUBIN,TOTAL 0.3 mg/dL (0.2-1); BLOOD UREA NITROGEN 14.6 mg/dL (7-18); CREATININE 0.8 mg/dL (0.55-1.3); POTASSIUM 3.9 mmol/L (3.5-5.1); TOT PROT 6.7 g/dl (6.4-8.2)
[2019-03-03 09:00] LABS: CALCIUM 8.5 mg/dL (8.5-10.1)
[2019-03-03] MEDS: metoPROLOL SUCCINATE 25 MG TAB.SR.24H (FP) PO SCH (10:01)
[2019-03-03] MEDS: amLODIPine BESYLATE 5 MG TABLET (FP) PO SCH (10:01)
[2019-03-03] MEDS: HYDROCHLOROTHIAZIDE 25 MG TABLET (FP) PO SCH ×2 (10:02→22:19)
[2019-03-03] MEDS: HEPARIN NA (PORCINE) 5,000 UNITS/ML 1ML VIAL SQ SCH ×2 (10:02→22:19)
[2019-03-03] MEDS: PANTOPRAZOLE 40 MG TABLET (FP) PO SCH ×2 (10:25→22:17)
[2019-03-03] MEDS: ASPIRIN COATED 81 MG TABLET.EC PO SCH (10:25)
--- NOTE | 2019-03-03 11:35 | PN ---
Progress Note (short form) - Note Progress Note: POD#1 for second I&D. No pain. vss, Tmax 99.4 wbc=8.7, +clean dry and intact dressing, normal post op cellulitis improved Complete bed rest. Dressing change tomorrow. Will follow.
[2019-03-03] MEDS: oxyCODONE HCL 5 MG TABLET PO PRN (22:17)
--- NOTE | 2019-03-03 22:44 | PN ---
Progress Note, Physician History of Present Illness: No new complaints - Current Medication List Current Medications: Active Medications Acetaminophen (Tylenol -) 650 mg PO Q6H PRN PRN Reason: FEVER Amlodipine Besylate (Norvasc -) 5 mg PO DAILY [facility] Last Admin: 03/03/19 10:01 Dose: 5 mg Aspirin (Ecotrin -) 81 mg PO DAILY [facility] Last Admin: 03/03/19 10:25 Dose: 81 mg Heparin Sodium (Porcine) (Heparin -) 5,000 unit SQ BID [facility] Last Admin: 03/03/19 22:19 Dose: 5,000 unit Hydrochlorothiazide (Hctz -) 25 mg PO BID [facility] Last Admin: 03/03/19 22:19 Dose: 25 mg Piperacillin Sod/Tazobactam (Sod 3.375 gm/ Dextrose) 50 mls @ 100 mls/hr IVPB Q8H-IV [facility]; Protocol Last Admin: 03/03/19 17:52 Dose: 100 mls/hr Insulin Aspart (Novolog Vial Sliding Scale -) 1 vial SQ ACHS [facility]; Protocol Last Admin: 03/03/19 22:20 Dose: 8 units Insulin Detemir (Levemir Vial) 30 units SQ BID@0700,2200 [facility] Last Admin: 03/03/19 22:21 Dose: 30 units [facility] ([facility] -) [address] [facility] Last Admin: 03/03/19 17:52 Dose: 500 mg Metoprolol Succinate (Toprol Xl -) 25 mg PO DAILY [facility] Last Admin: 03/03/19 10:01 Dose: 25 mg Ondansetron HCl (Zofran Injection) 4 mg IVPUSH Q6H PRN PRN Reason: NAUSEA AND/OR VOMITING Oxycodone HCl (Roxicodone -) 10 mg PO Q4H PRN PRN Reason: PAIN LEVEL 6-10 Last Admin: 03/03/19 22:17 Dose: 10 mg Pantoprazole Sodium (Protonix -) 40 mg PO BID [facility] Last Admin: 03/03/19 22:17 Dose: 40 mg Promethazine HCl (Phenergan Injection -) 12.5 mg IVPUSH Q6H PRN PRN Reason: NAUSEA-FOR RESCUE AFTER 15 MIN Vancomycin HCl (Vancomycin (Pre-Docked)) 1,000 mg IVPB Q12H [facility] Last Admin: 03/03/19 19:06 Dose: 1,000 mg - Objective Vital Signs: Vital Signs Temperature 98.6 F 03/03/19 18:00 Pulse Rate 74 03/03/19 18:00 Respiratory Rate 20 03/03/19 18:00 Blood Pressure 137/66 03/03/19 18:00 O2 Sat by Pulse Oximetry (%) 97 03/03/19 09:00 Constitutional: Yes: Obese Neck: Yes: WNL, Supple Cardiovascular: Yes: WNL, Regular Rate and Rhythm Respiratory: Yes: WNL, Regular, CTA Bilaterally Gastrointestinal: Yes: WNL, Normal Bowel Sounds, Soft, Abdomen, Obese Extremities: Yes: Other (Lt toe amputations 3,4,5 toes Lt foot ulcer draining) Labs: CBC, BMP 03/03/19 06:45 03/03/19 06:45 INR, PTT INR 1.07 (0.83-1.09) 03/02/19 06:30 Problem List - Problems (1) Diabetic foot ulcer Assessment/Plan: Abscess/cellulitis lt foot S/P I&D and debridement Follow Wound cultures Blood cultures are negative Cont IV vanco/zosyn Cont wound care Code(s): E11.621 - TYPE 2 DIABETES MELLITUS WITH FOOT ULCER; L97.509 - NON- PRESSURE CHRONIC ULCER OTH PRT UNSP FOOT W UNSP SEVERITY (2) Diabetes Assessment/Plan: Cont levemir/metformin Cont sliding scale w/ coverage Code(s): E11.9 - TYPE 2 DIABETES MELLITUS WITHOUT COMPLICATIONS Qualifiers: Diabetes mellitus type: other specified (including LASHAY) Diabetes mellitus fci insulin use: unspecified fci insulin use status Diabetes mellitus complication status: with hyperglycemia Qualified Code(s): E13.65 - Other specified diabetes mellitus with hyperglycemia (3) CKD (chronic kidney disease) Code(s): N18.9 - CHRONIC KIDNEY DISEASE, UNSPECIFIED (4) HTN (hypertension) Assessment/Plan: BP stable Cont metoprolol/norvasc/Hctz/asa Code(s): I10 - ESSENTIAL (PRIMARY) HYPERTENSION (5) Morbid obesity Code(s): E66.01 - MORBID (SEVERE) OBESITY DUE TO EXCESS CALORIES (6) Peripheral neuropathy Code(s): G62.9 - POLYNEUROPATHY, UNSPECIFIED
[2019-03-04] MEDS ORDERED: DEXTROSE 5%-WATER - 50 ML IVPB ONE ×3 (02:21→17:41)
[2019-03-04] MEDS ORDERED: PIPERACILLIN/TAZOBACTAM 3.375 GM VIAL IVPB ONE ×3 (02:21→17:41)
[2019-03-04] MEDS: PIPERACILLIN/TAZOB 3.375 GM 3.375 GM in DEXTROSE 5%-WATER - 50 ML IVPB SCH ×3 (02:43→18:26)
[2019-03-04] MEDS: metFORMIN HCL 500 MG TABLET (FP) PO SCH ×2 (06:52→18:27)
[2019-03-04] MEDS: INSULIN SLIDING SCALE (NOVOLOG) 1 VIAL SQ SCH ×4 (06:52→21:32)
[2019-03-04] MEDS: VANCOMYCIN 1 GM in D5W (PRE-DOCKED) 1,000 MG/250 ML IVPB SCH ×2 (06:53→20:02)
[2019-03-04 07:24] LABS: BASO % 1.1 % (0-2.0); EOS % 3.3 % (0-4.5); HEMATOCRIT 32.1 % (35.4-49); HEMOGLOBIN 10.5 GM/dL (11.7-16.9); LYMPH % 22.5 % (8-40); MCH 24.9 pg (25.7-33.7); MCHC 32.7 g/dl (32.0-35.9); MEAN CELL VOLUME 76.1 fl (80-96); MEAN PLT VOLUME 7.5 fl (7.5-11.1); MONO % 5.5 % (3.8-10.2); NEUT % 67.6 % (42.8-82.8); PLATELET COUNT 518 K/MM3 (134-434); RBC 4.22 M/mm3 (4.00-5.60); RDW 17.5 % (11.9-15.9); WHITE BLOOD COUNT 8.2 K/mm3 (4.0-10.0)
[2019-03-04] MEDS: INSULIN (LEVEMIR) 100 UNITS/ML UNITS SQ SCH ×2 (07:30→21:31)
[2019-03-04 08:19] LABS: ALBUMIN 2.5 g/dl (3.4-5.0); BILIRUBIN,TOTAL 0.3 mg/dL (0.2-1); CALCIUM 8.7 mg/dL (8.5-10.1); CREATININE 0.8 mg/dL (0.55-1.3); TOT PROT 7.5 g/dl (6.4-8.2)
[2019-03-04] MEDS: HEPARIN NA (PORCINE) 5,000 UNITS/ML 1ML VIAL SQ SCH ×2 (09:25→21:13)
[2019-03-04] MEDS: ASPIRIN COATED 81 MG TABLET.EC PO SCH (09:25)
[2019-03-04] MEDS: HYDROCHLOROTHIAZIDE 25 MG TABLET (FP) PO SCH ×2 (09:25→21:29)
[2019-03-04] MEDS: PANTOPRAZOLE 40 MG TABLET (FP) PO SCH ×2 (09:25→21:29)
[2019-03-04] MEDS: metoPROLOL SUCCINATE 25 MG TAB.SR.24H (FP) PO SCH (09:26)
[2019-03-04] MEDS: amLODIPine BESYLATE 5 MG TABLET (FP) PO SCH (09:46)
--- NOTE | 2019-03-04 10:10 | PN ---
Progress Note, Physician History of Present Illness: stable no new issues - Current Medication List Current Medications: Active Medications Acetaminophen (Tylenol -) 650 mg PO Q6H PRN PRN Reason: FEVER Amlodipine Besylate (Norvasc -) 5 mg PO DAILY [facility] Last Admin: 03/04/19 09:46 Dose: 5 mg Aspirin (Ecotrin -) 81 mg PO DAILY [facility] Last Admin: 03/04/19 09:25 Dose: 81 mg Heparin Sodium (Porcine) (Heparin -) 5,000 unit SQ BID [facility] Last Admin: 03/04/19 09:25 Dose: 5,000 unit Hydrochlorothiazide (Hctz -) 25 mg PO BID [facility] Last Admin: 03/04/19 09:25 Dose: 25 mg Piperacillin Sod/Tazobactam (Sod 3.375 gm/ Dextrose) 50 mls @ 100 mls/hr IVPB Q8H-IV [facility]; Protocol Last Admin: 03/04/19 09:46 Dose: 100 mls/hr Insulin Aspart (Novolog Vial Sliding Scale -) 1 vial SQ ACHS [facility]; Protocol Last Admin: 03/04/19 06:52 Dose: 2 units Insulin Detemir (Levemir Vial) 30 units SQ BID@0700,2200 [facility] Last Admin: 03/04/19 07:30 Dose: 30 units [facility]) [facility] Last Admin: 03/04/19 06:52 Dose: 500 mg Metoprolol Succinate (Toprol Xl -) 25 mg PO DAILY [facility] Last Admin: 03/04/19 09:26 Dose: 25 mg Ondansetron HCl (Zofran Injection) 4 mg IVPUSH Q6H PRN PRN Reason: NAUSEA AND/OR VOMITING Oxycodone HCl (Roxicodone -) 10 mg PO Q4H PRN PRN Reason: PAIN LEVEL 6-10 Last Admin: 03/03/19 22:17 Dose: 10 mg Pantoprazole Sodium (Protonix -) 40 mg PO BID [facility] Last Admin: 03/04/19 09:25 Dose: 40 mg Promethazine HCl (Phenergan Injection -) 12.5 mg IVPUSH Q6H PRN PRN Reason: NAUSEA-FOR RESCUE AFTER 15 MIN Vancomycin HCl (Vancomycin (Pre-Docked)) 1,000 mg IVPB Q12H [facility] Last Admin: 03/04/19 06:53 Dose: 1,000 mg - Objective Vital Signs: Vital Signs Temperature 98.1 F 03/04/19 06:00 Pulse Rate 93 H 03/04/19 06:00 Respiratory Rate 20 03/04/19 06:00 Blood Pressure 143/80 03/04/19 06:00 O2 Sat by Pulse Oximetry (%) 97 03/03/19 21:00 Constitutional: Yes: No Distress, Calm Cardiovascular: Yes: S1, S2 Respiratory: Yes: Regular, CTA Bilaterally Gastrointestinal: Yes: Normal Bowel Sounds, Soft Musculoskeletal: Yes: WNL Extremities: Yes: Other Wound/Incision: Yes: Dressing Dry and Intact Neurological: Yes: Alert, Oriented Psychiatric: Yes: Alert, Oriented Labs: CBC, BMP 03/04/19 07:11 03/04/19 07:11 INR, PTT INR 1.07 (0.83-1.09) 03/02/19 06:30 Assessment/Plan Problem List - Problems (1) Cellulitis of foot, left Code(s): L03.116 - CELLULITIS OF LEFT LOWER LIMB (2) Diabetic foot ulcer Code(s): E11.621 - TYPE 2 DIABETES MELLITUS WITH FOOT ULCER; L97.509 - NON- PRESSURE CHRONIC ULCER OTH PRT UNSP FOOT W UNSP SEVERITY (3) CKD (chronic kidney disease) Code(s): N18.9 - CHRONIC KIDNEY DISEASE, UNSPECIFIED (4) Diabetes Code(s): E11.9 - TYPE 2 DIABETES MELLITUS WITHOUT COMPLICATIONS Qualifiers: Diabetes mellitus type: other specified (including LASHAY) Diabetes mellitus long term care social worker insulin use: unspecified long term care social worker insulin use status Diabetes mellitus complication status: with hyperglycemia Qualified Code(s): E13.65 - Other specified diabetes mellitus with hyperglycemia (5) HTN (hypertension) Code(s): I10 - ESSENTIAL (PRIMARY) HYPERTENSION (6) Morbid obesity Code(s): E66.01 - MORBID (SEVERE) OBESITY DUE TO EXCESS CALORIES (7) Peripheral neuropathy Code(s): G62.9 - POLYNEUROPATHY, UNSPECIFIED (8) Sepsis Code(s): A41.9 - SEPSIS, UNSPECIFIED ORGANISM Qualifiers: Sepsis type: sepsis due to unspecified organism Qualified Code(s): A41.9 - Sepsis, unspecified organism Assessment/Plan Lt foot cellulitis/ abscess s/p I+D POD#3 Possible Lt 2nd MT head OM Fever Leukocytosis DM CKD Hx of Lt foot OM s/p amp of 3rd/4th/5th toe Morbid obesity debridement continue current mgmt cx finalization rest as per the team
--- NOTE | 2019-03-04 10:24 | PN ---
Progress Note, Physician History of Present Illness: stable no new issues - Current Medication List Current Medications: Active Medications Acetaminophen (Tylenol -) 650 mg PO Q6H PRN PRN Reason: FEVER Amlodipine Besylate (Norvasc -) 5 mg PO DAILY [facility] Last Admin: 03/04/19 09:46 Dose: 5 mg Aspirin (Ecotrin -) 81 mg PO DAILY [facility] Last Admin: 03/04/19 09:25 Dose: 81 mg Heparin Sodium (Porcine) (Heparin -) 5,000 unit SQ BID [facility] Last Admin: 03/04/19 09:25 Dose: 5,000 unit Hydrochlorothiazide (Hctz -) 25 mg PO BID [facility] Last Admin: 03/04/19 09:25 Dose: 25 mg Piperacillin Sod/Tazobactam (Sod 3.375 gm/ Dextrose) 50 mls @ 100 mls/hr IVPB Q8H-IV [facility]; Protocol Last Admin: 03/04/19 09:46 Dose: 100 mls/hr Insulin Aspart (Novolog Vial Sliding Scale -) 1 vial SQ ACHS [facility]; Protocol Last Admin: 03/04/19 06:52 Dose: 2 units Insulin Detemir (Levemir Vial) 30 units SQ BID@0700,2200 [facility] Last Admin: 03/04/19 07:30 Dose: 30 units [facility] Last Admin: 03/04/19 06:52 Dose: 500 mg Metoprolol Succinate (Toprol Xl -) 25 mg PO DAILY [facility] Last Admin: 03/04/19 09:26 Dose: 25 mg Ondansetron HCl (Zofran Injection) 4 mg IVPUSH Q6H PRN PRN Reason: NAUSEA AND/OR VOMITING Oxycodone HCl (Roxicodone -) 10 mg PO Q4H PRN PRN Reason: PAIN LEVEL 6-10 Last Admin: 03/03/19 22:17 Dose: 10 mg Pantoprazole Sodium (Protonix -) 40 mg PO BID [facility] Last Admin: 03/04/19 09:25 Dose: 40 mg Promethazine HCl (Phenergan Injection -) 12.5 mg IVPUSH Q6H PRN PRN Reason: NAUSEA-FOR RESCUE AFTER 15 MIN Vancomycin HCl (Vancomycin (Pre-Docked)) 1,000 mg IVPB Q12H [facility] Last Admin: 03/04/19 06:53 Dose: 1,000 mg - Objective Vital Signs: Vital Signs Temperature 98.1 F 03/04/19 06:00 Pulse Rate 93 H 03/04/19 06:00 Respiratory Rate 20 03/04/19 06:00 Blood Pressure 143/80 03/04/19 06:00 O2 Sat by Pulse Oximetry (%) 97 03/03/19 21:00 Constitutional: Yes: No Distress, Calm Cardiovascular: Yes: S1, S2 Respiratory: Yes: Regular, CTA Bilaterally Gastrointestinal: Yes: Normal Bowel Sounds, Soft Musculoskeletal: Yes: WNL Extremities: Yes: Other Wound/Incision: Yes: Dressing Dry and Intact Neurological: Yes: Alert, Oriented Psychiatric: Yes: Alert, Oriented Labs: CBC, BMP 03/04/19 07:11 03/04/19 07:11 INR, PTT INR 1.07 (0.83-1.09) 03/02/19 06:30 Assessment/Plan Problem List - Problems (1) Cellulitis of foot, left Code(s): L03.116 - CELLULITIS OF LEFT LOWER LIMB (2) Diabetic foot ulcer Code(s): E11.621 - TYPE 2 DIABETES MELLITUS WITH FOOT ULCER; L97.509 - NON- PRESSURE CHRONIC ULCER OTH PRT UNSP FOOT W UNSP SEVERITY (3) CKD (chronic kidney disease) Code(s): N18.9 - CHRONIC KIDNEY DISEASE, UNSPECIFIED (4) Diabetes Code(s): E11.9 - TYPE 2 DIABETES MELLITUS WITHOUT COMPLICATIONS Qualifiers: Diabetes mellitus type: other specified (including LASHAY) Diabetes mellitus exterminator helper insulin use: unspecified exterminator helper insulin use status Diabetes mellitus complication status: with hyperglycemia Qualified Code(s): E13.65 - Other specified diabetes mellitus with hyperglycemia (5) HTN (hypertension) Code(s): I10 - ESSENTIAL (PRIMARY) HYPERTENSION (6) Morbid obesity Code(s): E66.01 - MORBID (SEVERE) OBESITY DUE TO EXCESS CALORIES (7) Peripheral neuropathy Code(s): G62.9 - POLYNEUROPATHY, UNSPECIFIED (8) Sepsis Code(s): A41.9 - SEPSIS, UNSPECIFIED ORGANISM Qualifiers: Sepsis type: sepsis due to unspecified organism Qualified Code(s): A41.9 - Sepsis, unspecified organism Assessment/Plan Lt foot cellulitis/ abscess s/p I+D POD#3 Possible Lt 2nd MT head OM Fever Leukocytosis DM CKD Hx of Lt foot OM s/p amp of 3rd/4th/5th toe Morbid obesity awaiting for finalization of the cx will d/w the podiatry team continue abx rest a per he team
[2019-03-04 10:39] VITALS: BMI 41.3
[2019-03-04] MEDS ORDERED: INSULIN (NOVOLOG) ASPART 100 UNITS/ML 10ML VIAL ONE (12:11)
--- NOTE | 2019-03-04 17:33 | PN ---
Progress Note (short form) - Note Progress Note: POD#2. vss, Tmax 99.4 wbc=8.2, +clean dry and intact dressing, +packing intact normal post op cellulitis improved Packing pulled. Betadine irrigation. Redressed. Complete bed rest continues.
[2019-03-04 21:04] LABS: BASO % 0.4 % (0-2.0); EOS % 2.5 % (0-4.5); HEMATOCRIT 31.6 % (35.4-49); HEMOGLOBIN 10.2 GM/dL (11.7-16.9); LYMPH % 22.7 % (8-40); MCH 24.8 pg (25.7-33.7); MCHC 32.2 g/dl (32.0-35.9); MEAN CELL VOLUME 76.9 fl (80-96); MEAN PLT VOLUME 7.6 fl (7.5-11.1); MONO % 5.6 % (3.8-10.2); NEUT % 68.8 % (42.8-82.8); PLATELET COUNT 541 K/MM3 (134-434); RBC 4.11 M/mm3 (4.00-5.60); RDW 17.4 % (11.9-15.9); WHITE BLOOD COUNT 9.1 K/mm3 (4.0-10.0)
[2019-03-04 21:14] LABS: INR 1.03 (0.83-1.09); PROTHROMBIN TIME (PATIENT) 12.1 SEC (9.7-13.0)
[2019-03-04 21:16] LABS: ACTIVATED PTT 37.5 SECONDS (25.2-36.5)
[2019-03-04] MEDS: oxyCODONE HCL 5 MG TABLET PO PRN (21:30)
--- NOTE | 2019-03-04 22:02 | PN ---
Progress Note, Physician History of Present Illness: No new complaints - Current Medication List Current Medications: Active Medications Acetaminophen (Tylenol -) 650 mg PO Q6H PRN PRN Reason: FEVER Amlodipine Besylate (Norvasc -) 5 mg PO DAILY [facility] Last Admin: 03/04/19 09:46 Dose: 5 mg Aspirin (Ecotrin -) 81 mg PO DAILY [facility] Last Admin: 03/04/19 09:25 Dose: 81 mg Heparin Sodium (Porcine) (Heparin -) 5,000 unit SQ BID [facility] Last Admin: 03/04/19 21:13 Dose: Not Given Hydrochlorothiazide (Hctz -) 25 mg PO BID [facility] Last Admin: 03/04/19 21:29 Dose: 25 mg Piperacillin Sod/Tazobactam (Sod 3.375 gm/ Dextrose) 50 mls @ 100 mls/hr IVPB Q8H-IV [facility]; Protocol Last Admin: 03/04/19 18:26 Dose: 100 mls/hr Insulin Aspart (Novolog Vial Sliding Scale -) 1 vial SQ ACHS [facility]; Protocol Last Admin: 03/04/19 21:32 Dose: 4 units Insulin Detemir (Levemir Vial) 30 units SQ BID@0700,2200 [facility] Last Admin: 03/04/19 21:31 Dose: 30 units Metformin HCl (Glucophage -) 500 mg PO BIDAC [facility] Last Admin: 03/04/19 18:27 Dose: 500 mg Metoprolol Succinate (Toprol Xl -) 25 mg PO DAILY [facility] Last Admin: 03/04/19 09:26 Dose: 25 mg Ondansetron HCl (Zofran Injection) 4 mg IVPUSH Q6H PRN PRN Reason: NAUSEA AND/OR VOMITING Oxycodone HCl (Roxicodone -) 10 mg PO Q4H PRN PRN Reason: PAIN LEVEL 6-10 Last Admin: 03/04/19 21:30 Dose: 10 mg Pantoprazole Sodium (Protonix -) 40 mg PO BID [facility] Last Admin: 03/04/19 21:29 Dose: 40 mg Promethazine HCl (Phenergan Injection -) 12.5 mg IVPUSH Q6H PRN PRN Reason: NAUSEA-FOR RESCUE AFTER 15 MIN Vancomycin HCl (Vancomycin (Pre-Docked)) 1,000 mg IVPB Q12H [facility] Last Admin: 03/04/19 20:02 Dose: 1,000 mg - Objective Vital Signs: Vital Signs Temperature 98.5 F 03/04/19 18:00 Pulse Rate 80 03/04/19 18:00 Respiratory Rate 20 03/04/19 18:00 Blood Pressure 149/84 03/04/19 18:00 O2 Sat by Pulse Oximetry (%) 98 03/04/19 09:00 Constitutional: Yes: Obese Neck: Yes: WNL, Supple Cardiovascular: Yes: WNL, Regular Rate and Rhythm Respiratory: Yes: WNL, Regular, CTA Bilaterally Gastrointestinal: Yes: WNL, Normal Bowel Sounds, Soft, Abdomen, Obese Extremities: Yes: Other (Lt foot in dressing) Labs: CBC, BMP 03/04/19 20:30 03/04/19 07:11 INR, PTT INR 1.03 (0.83-1.09) 03/04/19 20:30 Problem List - Problems (1) Diabetic foot ulcer Assessment/Plan: Abscess/cellulitis lt foot S/P I&D and debridement Wound cultures show Beta hem strept/diphtheroid/cornybact/staph aureus/ enterococcus fec Blood cultures are negative Cont IV vanco/zosyn Cont wound care Code(s): E11.621 - TYPE 2 DIABETES MELLITUS WITH FOOT ULCER; L97.509 - NON- PRESSURE CHRONIC ULCER OTH PRT UNSP FOOT W UNSP SEVERITY (2) Diabetes Assessment/Plan: Cont levemir/metformin Cont sliding scale w/ coverage Code(s): E11.9 - TYPE 2 DIABETES MELLITUS WITHOUT COMPLICATIONS Qualifiers: Diabetes mellitus type: other specified (including LASHAY) Diabetes mellitus vermin exterminator insulin use: unspecified fpc insulin use status Diabetes mellitus complication status: with hyperglycemia Qualified Code(s): E13.65 - Other specified diabetes mellitus with hyperglycemia (3) CKD (chronic kidney disease) Code(s): N18.9 - CHRONIC KIDNEY DISEASE, UNSPECIFIED (4) HTN (hypertension) Assessment/Plan: BP stable Cont metoprolol/norvasc/Hctz/asa Code(s): I10 - ESSENTIAL (PRIMARY) HYPERTENSION (5) Morbid obesity Code(s): E66.01 - MORBID (SEVERE) OBESITY DUE TO EXCESS CALORIES (6) Peripheral neuropathy Code(s): G62.9 - POLYNEUROPATHY, UNSPECIFIED
[2019-03-05] MEDS ORDERED: DEXTROSE 5%-WATER - 50 ML IVPB ONE ×3 (02:21→17:49)
[2019-03-05] MEDS ORDERED: PIPERACILLIN/TAZOBACTAM 3.375 GM VIAL IVPB ONE ×3 (02:21→17:49)
[2019-03-05] MEDS: PIPERACILLIN/TAZOB 3.375 GM 3.375 GM in DEXTROSE 5%-WATER - 50 ML IVPB SCH ×3 (02:52→17:54)
[2019-03-05] MEDS: VANCOMYCIN 1 GM in D5W (PRE-DOCKED) 1,000 MG/250 ML IVPB SCH ×2 (06:46→18:55)
[2019-03-05] MEDS: metFORMIN HCL 500 MG TABLET (FP) PO SCH ×2 (06:46→17:31)
[2019-03-05] MEDS: INSULIN SLIDING SCALE (NOVOLOG) 1 VIAL SQ SCH ×4 (06:47→22:23)
[2019-03-05] MEDS: INSULIN (LEVEMIR) 100 UNITS/ML UNITS SQ SCH ×2 (06:49→22:23)
[2019-03-05 08:28] LABS: BASO % 0.5 % (0-2.0); EOS % 2.8 % (0-4.5); HEMATOCRIT 28.3 % (35.4-49); HEMOGLOBIN 9.3 GM/dL (11.7-16.9); LYMPH % 23.5 % (8-40); MCH 24.9 pg (25.7-33.7); MCHC 32.8 g/dl (32.0-35.9); MEAN CELL VOLUME 75.8 fl (80-96); MEAN PLT VOLUME 7.5 fl (7.5-11.1); MONO % 5.4 % (3.8-10.2); NEUT % 67.8 % (42.8-82.8); PLATELET COUNT 500 K/MM3 (134-434); RBC 3.73 M/mm3 (4.00-5.60); RDW 17.2 % (11.9-15.9); WHITE BLOOD COUNT 8.6 K/mm3 (4.0-10.0)
--- NOTE | 2019-03-05 08:53 | PN ---
Progress Note, Physician History of Present Illness: stable no new issues - Current Medication List Current Medications: Active Medications Acetaminophen (Tylenol -) 650 mg PO Q6H PRN PRN Reason: FEVER Amlodipine Besylate (Norvasc -) 5 mg PO DAILY [facility] Last Admin: 03/04/19 09:46 Dose: 5 mg Aspirin (Ecotrin -) 81 mg PO DAILY [facility] Last Admin: 03/04/19 09:25 Dose: 81 mg Heparin Sodium (Porcine) (Heparin -) 5,000 unit SQ BID [facility] Last Admin: 03/04/19 21:13 Dose: Not Given Hydrochlorothiazide (Hctz -) 25 mg PO BID [facility] Last Admin: 03/04/19 21:29 Dose: 25 mg Piperacillin Sod/Tazobactam (Sod 3.375 gm/ Dextrose) 50 mls @ 100 mls/hr IVPB Q8H-IV [facility]; Protocol Last Admin: 03/05/19 02:52 Dose: 100 mls/hr Insulin Aspart (Novolog Vial Sliding Scale -) 1 vial SQ ACHS [facility]; Protocol Last Admin: 03/05/19 06:47 Dose: 2 units Insulin Detemir (Levemir Vial) 30 units SQ BID@0700,2200 [facility] Last Admin: 03/05/19 06:49 Dose: 30 [facility] Admin: 03/05/19 06:46 Dose: 500 mg Metoprolol Succinate (Toprol Xl -) 25 mg PO DAILY [facility] Last Admin: 03/04/19 09:26 Dose: 25 mg Ondansetron HCl (Zofran Injection) 4 mg IVPUSH Q6H PRN PRN Reason: NAUSEA AND/OR VOMITING Oxycodone HCl (Roxicodone -) 10 mg PO Q4H PRN PRN Reason: PAIN LEVEL 6-10 Last Admin: 03/04/19 21:30 Dose: 10 mg Pantoprazole Sodium (Protonix -) 40 mg PO BID [facility] Last Admin: 03/04/19 21:29 Dose: 40 mg Promethazine HCl (Phenergan Injection -) 12.5 mg IVPUSH Q6H PRN PRN Reason: NAUSEA-FOR RESCUE AFTER 15 MIN Vancomycin HCl (Vancomycin (Pre-Docked)) 1,000 mg IVPB Q12H [facility] Last Admin: 03/05/19 06:46 Dose: 1,000 mg - Objective Vital Signs: Vital Signs Temperature 98.3 F 03/05/19 06:00 Pulse Rate 72 03/05/19 06:00 Respiratory Rate 20 03/05/19 06:00 Blood Pressure 161/65 03/05/19 06:00 O2 Sat by Pulse Oximetry (%) 98 03/04/19 21:00 Constitutional: Yes: No Distress, Calm Cardiovascular: Yes: S1, S2 Respiratory: Yes: Regular, CTA Bilaterally Gastrointestinal: Yes: Normal Bowel Sounds, Soft Musculoskeletal: Yes: WNL Extremities: Yes: Other Wound/Incision: Yes: Dressing Dry and Intact Neurological: Yes: Alert, Oriented Psychiatric: Yes: Alert, Oriented Labs: INR, PTT INR 1.03 (0.83-1.09) 03/04/19 20:30 Assessment/Plan Problem List - Problems (1) Cellulitis of foot, left Code(s): L03.116 - CELLULITIS OF LEFT LOWER LIMB (2) Diabetic foot ulcer Code(s): E11.621 - TYPE 2 DIABETES MELLITUS WITH FOOT ULCER; L97.509 - NON- PRESSURE CHRONIC ULCER OTH PRT UNSP FOOT W UNSP SEVERITY (3) CKD (chronic kidney disease) Code(s): N18.9 - CHRONIC KIDNEY DISEASE, UNSPECIFIED (4) Diabetes Code(s): E11.9 - TYPE 2 DIABETES MELLITUS WITHOUT COMPLICATIONS Qualifiers: Diabetes mellitus type: other specified (including LASHAY) Diabetes mellitus snf insulin use: unspecified terminal gauger insulin use status Diabetes mellitus complication status: with hyperglycemia Qualified Code(s): E13.65 - Other specified diabetes mellitus with hyperglycemia (5) HTN (hypertension) Code(s): I10 - ESSENTIAL (PRIMARY) HYPERTENSION (6) Morbid obesity Code(s): E66.01 - MORBID (SEVERE) OBESITY DUE TO EXCESS CALORIES (7) Peripheral neuropathy Code(s): G62.9 - POLYNEUROPATHY, UNSPECIFIED (8) Sepsis Code(s): A41.9 - SEPSIS, UNSPECIFIED ORGANISM Qualifiers: Sepsis type: sepsis due to unspecified organism Qualified Code(s): A41.9 - Sepsis, unspecified organism Assessment/Plan Lt foot cellulitis/ abscess s/p I+D POD#3 Possible Lt 2nd MT head OM Fever Leukocytosis DM CKD Hx of Lt foot OM s/p amp of 3rd/4th/5th toe Morbid obesity awaiting for finalization of the sensitivities will d/w the podiatry team continue abx rest a per he team
[2019-03-05 08:56] LABS: ALBUMIN 2.4 g/dl (3.4-5.0); BILIRUBIN,TOTAL 0.3 mg/dL (0.2-1); BLOOD UREA NITROGEN 15.2 mg/dL (7-18); CALCIUM 8.6 mg/dL (8.5-10.1); CREATININE 0.8 mg/dL (0.55-1.3); POTASSIUM 3.9 mmol/L (3.5-5.1); TOT PROT 6.9 g/dl (6.4-8.2)
[2019-03-05] MEDS: amLODIPine BESYLATE 5 MG TABLET (FP) PO SCH (09:59)
[2019-03-05] MEDS: HYDROCHLOROTHIAZIDE 25 MG TABLET (FP) PO SCH ×2 (09:59→22:23)
[2019-03-05] MEDS: metoPROLOL SUCCINATE 25 MG TAB.SR.24H (FP) PO SCH (09:59)
[2019-03-05] MEDS: PANTOPRAZOLE 40 MG TABLET (FP) PO SCH ×2 (09:59→22:23)
[2019-03-05] MEDS: HEPARIN NA (PORCINE) 5,000 UNITS/ML 1ML VIAL SQ SCH ×2 (10:00→22:23)
[2019-03-05] MEDS: ASPIRIN COATED 81 MG TABLET.EC PO SCH (10:00)
[2019-03-05] MEDS: oxyCODONE HCL 5 MG TABLET PO PRN (11:35)
[2019-03-05] MEDS ORDERED: PT OWN MED DRAWER 7, Y5N ONE (11:51)
--- NOTE | 2019-03-05 15:16 | PN ---
Progress Note (short form) - Note Progress Note: Dressing is dry an intact No blood on bandage Dr wolfe will follow. Patient is feeling good
[2019-03-05] MEDS: diphenhydrAMINE HCL 25 MG CAPSULE (FP) PO PRN (22:23)
--- NOTE | 2019-03-05 23:21 | PN ---
Progress Note, Physician History of Present Illness: Pt had bleeding from wound last pm - Current Medication List Current Medications: Active Medications Acetaminophen (Tylenol -) 650 mg PO Q6H PRN PRN Reason: FEVER Amlodipine Besylate (Norvasc -) 5 mg PO DAILY [facility] Last Admin: 03/05/19 09:59 Dose: 5 mg Aspirin (Ecotrin -) 81 mg PO DAILY [facility] Last Admin: 03/05/19 10:00 Dose: 81 mg Diphenhydramine HCl (Benadryl -) 50 mg PO HS PRN PRN Reason: INSOMNIA Last Admin: 03/05/19 22:23 Dose: 50 mg Heparin Sodium (Porcine) (Heparin -) 5,000 unit SQ BID [facility] Last Admin: 03/05/19 22:23 Dose: 5,000 unit Hydrochlorothiazide (Hctz -) 25 mg PO BID [facility] Last Admin: 03/05/19 22:23 Dose: 25 mg Piperacillin Sod/Tazobactam (Sod 3.375 gm/ Dextrose) 50 mls @ 100 mls/hr IVPB Q8H-IV [facility]; Protocol Last Admin: 03/05/19 17:54 Dose: 100 mls/hr Insulin Aspart (Novolog Vial Sliding Scale -) 1 vial SQ ACHS [facility]; Protocol Last Admin: 03/05/19 22:23 Dose: 6 units Insulin Detemir (Levemir Vial) 30 units SQ BID@0700,2200 [facility] Last Admin: 03/05/19 22:23 Dose: 30 units Metformin HCl (Glucophage -) 500 mg PO BIDAC [facility] Last Admin: 03/05/19 17:31 Dose: 500 mg Metoprolol Succinate (Toprol Xl -) 25 mg PO DAILY [facility] Last Admin: 03/05/19 09:59 Dose: 25 mg Ondansetron HCl (Zofran Injection) 4 mg IVPUSH Q6H PRN PRN Reason: NAUSEA AND/OR VOMITING Pantoprazole Sodium (Protonix -) 40 mg PO BID [facility] Last Admin: 03/05/19 22:23 Dose: 40 mg Promethazine HCl (Phenergan Injection -) 12.5 mg IVPUSH Q6H PRN PRN Reason: NAUSEA-FOR RESCUE AFTER 15 MIN Vancomycin HCl (Vancomycin (Pre-Docked)) 1,000 mg IVPB Q12H [facility] Last Admin: 03/05/19 18:55 Dose: 1,000 mg - Objective Vital Signs: Vital Signs Temperature 98.2 F 03/05/19 21:34 Pulse Rate 80 03/05/19 21:34 Respiratory Rate 18 03/05/19 21:34 Blood Pressure 135/64 03/05/19 21:34 O2 Sat by Pulse Oximetry (%) 98 03/05/19 09:00 Cardiovascular: Yes: WNL, Regular Rate and Rhythm Respiratory: Yes: WNL, Regular, CTA Bilaterally Gastrointestinal: Yes: WNL, Normal Bowel Sounds, Soft Extremities: Yes: Other (Lt foot in dressing) Labs: CBC, BMP 03/05/19 08:00 03/05/19 08:00 INR, PTT INR 1.03 (0.83-1.09) 03/04/19 20:30 Problem List - Problems (1) Diabetic foot ulcer Assessment/Plan: Abscess/cellulitis lt foot Pt brought back to OR for debridement S/P I&D and ddebridement of lt foot Cont IV vanco/zosyn Cont wound care Blood cultures remain negative Code(s): E11.621 - TYPE 2 DIABETES MELLITUS WITH FOOT ULCER; L97.509 - NON- PRESSURE CHRONIC ULCER OTH PRT UNSP FOOT W UNSP SEVERITY (2) Diabetes Assessment/Plan: Cont levemir/metformin Cont sliding scale w/ coverage Code(s): E11.9 - TYPE 2 DIABETES MELLITUS WITHOUT COMPLICATIONS Qualifiers: Diabetes mellitus type: other specified (including LASHAY) Diabetes mellitus longterm insulin use: unspecified terminal press operator insulin use status Diabetes mellitus complication status: with hyperglycemia Qualified Code(s): E13.65 - Other specified diabetes mellitus with hyperglycemia (3) CKD (chronic kidney disease) Code(s): N18.9 - CHRONIC KIDNEY DISEASE, UNSPECIFIED (4) HTN (hypertension) Assessment/Plan: BP stable Cont metoprolol/norvasc/Hctz/asa Code(s): I10 - ESSENTIAL (PRIMARY) HYPERTENSION (5) Morbid obesity Code(s): E66.01 - MORBID (SEVERE) OBESITY DUE TO EXCESS CALORIES (6) Peripheral neuropathy Code(s): G62.9 - POLYNEUROPATHY, UNSPECIFIED
[2019-03-06] MEDS ORDERED: PIPERACILLIN/TAZOBACTAM 3.375 GM VIAL IVPB ONE ×3 (00:49→17:41)
[2019-03-06] MEDS ORDERED: DEXTROSE 5%-WATER - 50 ML IVPB ONE ×3 (00:50→17:42)
[2019-03-06] MEDS: PIPERACILLIN/TAZOB 3.375 GM 3.375 GM in DEXTROSE 5%-WATER - 50 ML IVPB SCH ×3 (02:21→17:48)
[2019-03-06] MEDS: INSULIN (LEVEMIR) 100 UNITS/ML UNITS SQ SCH ×2 (06:37→21:09)
[2019-03-06] MEDS: INSULIN SLIDING SCALE (NOVOLOG) 1 VIAL SQ SCH ×4 (06:37→21:11)
[2019-03-06] MEDS: metFORMIN HCL 500 MG TABLET (FP) PO SCH ×2 (06:37→17:48)
[2019-03-06] MEDS: VANCOMYCIN 1 GM in D5W (PRE-DOCKED) 1,000 MG/250 ML IVPB SCH ×2 (06:38→18:35)
[2019-03-06] MEDS ORDERED: INSULIN (NOVOLOG) ASPART 100 UNITS/ML 10ML VIAL ONE (08:06)
--- NOTE | 2019-03-06 09:41 | PN ---
Progress Note (short form) - Note Progress Note: Patient seen at bedside +clean dry intact dressing , normal post op wbc 8.6 Complete bed rest continues
--- NOTE | 2019-03-06 09:56 | PN ---
Progress Note, Physician History of Present Illness: stable no new issues - Current Medication List Current Medications: Active Medications Acetaminophen (Tylenol -) 650 mg PO Q6H PRN PRN Reason: FEVER Amlodipine Besylate (Norvasc -) 5 mg PO DAILY [facility] Last Admin: 03/05/19 09:59 Dose: 5 mg Aspirin (Ecotrin -) 81 mg PO DAILY [facility] Last Admin: 03/05/19 10:00 Dose: 81 mg Diphenhydramine HCl (Benadryl -) 50 mg PO HS PRN PRN Reason: INSOMNIA Last Admin: 03/05/19 22:23 Dose: 50 mg Heparin Sodium (Porcine) (Heparin -) 5,000 unit SQ BID [facility] Last Admin: 03/05/19 22:23 Dose: 5,000 unit Hydrochlorothiazide (Hctz -) 25 mg PO BID [facility] Last Admin: 03/05/19 22:23 Dose: 25 mg Piperacillin Sod/Tazobactam (Sod 3.375 gm/ Dextrose) 50 mls @ 100 mls/hr IVPB Q8H-IV [facility]; Protocol Last Admin: 03/06/19 02:21 Dose: 100 mls/hr Insulin Aspart (Novolog Vial Sliding Scale -) 1 vial SQ ACHS [facility]; Protocol Last Admin: 03/06/19 06:37 Dose: 2 units Insulin Detemir (Levemir Vial) 30 units SQ BID@0700,2200 [facility] Last Admin: 03/06/19 06:37 Dose: 30 [facility] Last Admin: 03/06/19 06:37 Dose: 500 mg Metoprolol Succinate (Toprol Xl -) 25 mg PO DAILY [facility] Last Admin: 03/05/19 09:59 Dose: 25 mg Ondansetron HCl (Zofran Injection) 4 mg IVPUSH Q6H PRN PRN Reason: NAUSEA AND/OR VOMITING Pantoprazole Sodium (Protonix -) 40 mg PO BID [facility] Last Admin: 03/05/19 22:23 Dose: 40 mg Promethazine HCl (Phenergan Injection -) 12.5 mg IVPUSH Q6H PRN PRN Reason: NAUSEA-FOR RESCUE AFTER 15 MIN Vancomycin HCl (Vancomycin (Pre-Docked)) 1,000 mg IVPB Q12H [facility] Last Admin: 03/06/19 06:38 Dose: 1,000 mg - Objective Vital Signs: Vital Signs Temperature 99.2 F 03/06/19 06:00 Pulse Rate 72 03/06/19 06:00 Respiratory Rate 18 03/06/19 06:00 Blood Pressure 145/59 L 03/06/19 06:00 O2 Sat by Pulse Oximetry (%) 98 03/05/19 09:00 Constitutional: Yes: No Distress, Calm Cardiovascular: Yes: Regular Rate and Rhythm Respiratory: Yes: Regular, CTA Bilaterally Gastrointestinal: Yes: Normal Bowel Sounds, Soft Musculoskeletal: Yes: WNL Extremities: Yes: Other Wound/Incision: Yes: Dressing Dry and Intact Neurological: Yes: Alert, Oriented Psychiatric: Yes: Alert, Oriented Labs: CBC, BMP 03/05/19 08:00 03/05/19 08:00 INR, PTT INR 1.03 (0.83-1.09) 03/04/19 20:30 Assessment/Plan Problem List - Problems (1) Cellulitis of foot, left Code(s): L03.116 - CELLULITIS OF LEFT LOWER LIMB (2) Diabetic foot ulcer Code(s): E11.621 - TYPE 2 DIABETES MELLITUS WITH FOOT ULCER; L97.509 - NON- PRESSURE CHRONIC ULCER OTH PRT UNSP FOOT W UNSP SEVERITY (3) CKD (chronic kidney disease) Code(s): N18.9 - CHRONIC KIDNEY DISEASE, UNSPECIFIED (4) Diabetes Code(s): E11.9 - TYPE 2 DIABETES MELLITUS WITHOUT COMPLICATIONS Qualifiers: Diabetes mellitus type: other specified (including LASHAY) Diabetes mellitus termite inspector insulin use: unspecified assisted insulin use status Diabetes mellitus complication status: with hyperglycemia Qualified Code(s): E13.65 - Other specified diabetes mellitus with hyperglycemia (5) HTN (hypertension) Code(s): I10 - ESSENTIAL (PRIMARY) HYPERTENSION (6) Morbid obesity Code(s): E66.01 - MORBID (SEVERE) OBESITY DUE TO EXCESS CALORIES (7) Peripheral neuropathy Code(s): G62.9 - POLYNEUROPATHY, UNSPECIFIED (8) Sepsis Code(s): A41.9 - SEPSIS, UNSPECIFIED ORGANISM Qualifiers: Sepsis type: sepsis due to unspecified organism Qualified Code(s): A41.9 - Sepsis, unspecified organism Assessment/Plan Lt foot cellulitis/ abscess s/p I+D POD#3 Possible Lt 2nd MT head OM Fever Leukocytosis DM CKD Hx of Lt foot OM s/p amp of 3rd/4th/5th toe Morbid obesity continue current mgmt wound care rest as per the team
[2019-03-06] MEDS: ASPIRIN COATED 81 MG TABLET.EC PO SCH (10:21)
[2019-03-06] MEDS: amLODIPine BESYLATE 5 MG TABLET (FP) PO SCH (10:21)
[2019-03-06] MEDS: PANTOPRAZOLE 40 MG TABLET (FP) PO SCH ×2 (10:21→21:08)
[2019-03-06] MEDS: HEPARIN NA (PORCINE) 5,000 UNITS/ML 1ML VIAL SQ SCH ×2 (10:21→21:09)
[2019-03-06] MEDS: HYDROCHLOROTHIAZIDE 25 MG TABLET (FP) PO SCH ×2 (10:21→21:09)
[2019-03-06] MEDS: metoPROLOL SUCCINATE 25 MG TAB.SR.24H (FP) PO SCH (10:21)
--- NOTE | 2019-03-06 11:54 | PATH ---
Surgical Pathology Report Patient Name: CLEMENTE WATSON [facility]. Rec. #: [id number] /Age/Gender: 1960 (Age: 58) / M Account: [id number] Location: [address] [place] [address]/[facility] Taken: 03/02/2019 Received: 03/03/2019 Reported: 03/06/2019 Physicians: MAGGIE Strickland M.D. Specimen(s) Received LEFT FOOT DEBRIDEMENT TISSUE Clinical History Diabetic infection of left foot Final Diagnosis DEBRIDED TISSUE, FOOT, LEFT, DEBRIDEMENT: FIBROADIPOSE TISSUE WITH MARKED ACUTE AND CHRONIC INFLAMMATION, ULCERATION, AND GRANULATION TISSUE. Electronically Signed Mily Lucas M.D. Gross Description Received in formalin labeled "left foot debrided tissue," is a 1.1 x 0.7 x 0.4 cm ellington brown portion of soft tissue. The specimen is bisected and entirely submitted in one cassette. 03/04/201903/04/2019
[2019-03-06] MEDS: diphenhydrAMINE HCL 25 MG CAPSULE (FP) PO PRN (21:08)
--- NOTE | 2019-03-06 21:12 | PN ---
Progress Note, Physician History of Present Illness: No further bleeding - Current Medication List Current Medications: Active Medications Acetaminophen (Tylenol -) 650 mg PO Q6H PRN PRN Reason: FEVER Amlodipine Besylate (Norvasc -) 5 mg PO DAILY [facility] Last Admin: 03/06/19 10:21 Dose: 5 mg Aspirin (Ecotrin -) 81 mg PO DAILY [facility] Last Admin: 03/06/19 10:21 Dose: 81 mg Diphenhydramine HCl (Benadryl -) 50 mg PO HS PRN PRN Reason: INSOMNIA Last Admin: 03/05/19 22:23 Dose: 50 mg Heparin Sodium (Porcine) (Heparin -) 5,000 unit SQ BID [facility] Last Admin: 03/06/19 10:21 Dose: 5,000 unit Hydrochlorothiazide (Hctz -) 25 mg PO BID [facility] Last Admin: 03/06/19 10:21 Dose: 25 mg Piperacillin Sod/Tazobactam (Sod 3.375 gm/ Dextrose) 50 mls @ 100 mls/hr IVPB Q8H-IV [facility]; Protocol Last Admin: 03/06/19 17:48 Dose: 100 mls/hr Insulin Aspart (Novolog Vial Sliding Scale -) 1 vial SQ ACHS [facility]; Protocol Last Admin: 03/06/19 17:47 Dose: 2 units Insulin Detemir (Levemir Vial) 30 units SQ BID@0700,2200 [facility] Last Admin: 03/06/19 06:37 Dose: 30 units Metformin HCl (Glucophage -) 500 mg PO BIDAC [facility] Last Admin: 03/06/19 17:48 Dose: 500 mg Metoprolol Succinate (Toprol Xl -) 25 mg PO DAILY [facility] Last Admin: 03/06/19 10:21 Dose: 25 mg Ondansetron HCl (Zofran Injection) 4 mg IVPUSH Q6H PRN PRN Reason: NAUSEA AND/OR VOMITING Pantoprazole Sodium (Protonix -) 40 mg PO BID [facility] Last Admin: 03/06/19 10:21 Dose: 40 mg Promethazine HCl (Phenergan Injection -) 12.5 mg IVPUSH Q6H PRN PRN Reason: NAUSEA-FOR RESCUE AFTER 15 MIN Vancomycin HCl (Vancomycin (Pre-Docked)) 1,000 mg IVPB Q12H [facility] Last Admin: 03/06/19 18:35 Dose: 1,000 mg - Objective Vital Signs: Vital Signs Temperature 97.8 F 03/06/19 20:59 Pulse Rate 82 03/06/19 20:59 Respiratory Rate 20 03/06/19 20:59 Blood Pressure 156/91 03/06/19 20:59 O2 Sat by Pulse Oximetry (%) 98 03/06/19 09:00 Constitutional: Yes: Obese Neck: Yes: WNL, Supple Cardiovascular: Yes: WNL, Regular Rate and Rhythm Respiratory: Yes: WNL, Regular, CTA Bilaterally Gastrointestinal: Yes: WNL, Normal Bowel Sounds, Soft, Abdomen, Obese Extremities: Yes: Other (Lt foot in dressing wc is draining) Labs: CBC, BMP 03/05/19 08:00 03/05/19 08:00 INR, PTT INR 1.03 (0.83-1.09) 03/04/19 20:30 Problem List - Problems (1) Diabetic foot ulcer Assessment/Plan: Abscess/cellulitis lt foot S/P I&D and debridement Wound cultures show Beta hem strept/diphtheroid/cornybact/staph aureus/ enterococcus fec Blood cultures are negative Cont IV vanco/zosyn Cont wound care Code(s): E11.621 - TYPE 2 DIABETES MELLITUS WITH FOOT ULCER; L97.509 - NON- PRESSURE CHRONIC ULCER OTH PRT UNSP FOOT W UNSP SEVERITY (2) Diabetes Assessment/Plan: Cont levemir/metformin Cont sliding scale w/ coverage Code(s): E11.9 - TYPE 2 DIABETES MELLITUS WITHOUT COMPLICATIONS Qualifiers: Diabetes mellitus type: other specified (including LASHAY) Diabetes mellitus vermin exterminator insulin use: unspecified vermin exterminator insulin use status Diabetes mellitus complication status: with hyperglycemia Qualified Code(s): E13.65 - Other specified diabetes mellitus with hyperglycemia (3) CKD (chronic kidney disease) Code(s): N18.9 - CHRONIC KIDNEY DISEASE, UNSPECIFIED (4) HTN (hypertension) Assessment/Plan: BP stable Cont metoprolol/norvasc/Hctz/asa Code(s): I10 - ESSENTIAL (PRIMARY) HYPERTENSION (5) Morbid obesity Code(s): E66.01 - MORBID (SEVERE) OBESITY DUE TO EXCESS CALORIES (6) Peripheral neuropathy Code(s): G62.9 - POLYNEUROPATHY, UNSPECIFIED
[2019-03-07] MEDS ORDERED: DEXTROSE 5%-WATER - 50 ML IVPB ONE ×3 (00:23→17:54)
[2019-03-07] MEDS ORDERED: PIPERACILLIN/TAZOBACTAM 3.375 GM VIAL IVPB ONE ×3 (00:23→17:54)
[2019-03-07] MEDS: PIPERACILLIN/TAZOB 3.375 GM 3.375 GM in DEXTROSE 5%-WATER - 50 ML IVPB SCH ×3 (01:35→18:16)
[2019-03-07] MEDS: VANCOMYCIN 1 GM in D5W (PRE-DOCKED) 1,000 MG/250 ML IVPB SCH ×2 (06:30→19:21)
[2019-03-07] MEDS: metFORMIN HCL 500 MG TABLET (FP) PO SCH ×2 (06:30→18:16)
[2019-03-07] MEDS: INSULIN (LEVEMIR) 100 UNITS/ML UNITS SQ SCH ×2 (06:30→21:49)
[2019-03-07] MEDS: INSULIN SLIDING SCALE (NOVOLOG) 1 VIAL SQ SCH ×4 (06:31→21:50)
[2019-03-07] MEDS ORDERED: INSULIN (LEVEMIR) 100 UNITS/ML UNITS SQ ONE (06:53)
[2019-03-07] MEDS ORDERED: PT OWN MED DRAWER 7, Y5N ONE (06:53)
[2019-03-07] MEDS ORDERED: INSULIN (NOVOLOG) ASPART 100 UNITS/ML 10ML VIAL ONE ×2 (06:53→10:52)
--- NOTE | 2019-03-07 09:03 | PN ---
Progress Note (short form) - Note Progress Note: + clean dry dressing intact Patient feels good Dressing will be changed by Dr Galindo- Leave dressing intact
[2019-03-07] MEDS: HYDROCHLOROTHIAZIDE 25 MG TABLET (FP) PO SCH ×2 (10:35→21:46)
[2019-03-07] MEDS: amLODIPine BESYLATE 5 MG TABLET (FP) PO SCH (10:35)
[2019-03-07] MEDS: ASPIRIN COATED 81 MG TABLET.EC PO SCH (10:36)
[2019-03-07] MEDS: metoPROLOL SUCCINATE 25 MG TAB.SR.24H (FP) PO SCH (10:36)
[2019-03-07] MEDS: PANTOPRAZOLE 40 MG TABLET (FP) PO SCH ×2 (10:36→21:46)
[2019-03-07] MEDS: HEPARIN NA (PORCINE) 5,000 UNITS/ML 1ML VIAL SQ SCH ×2 (10:54→21:47)
--- NOTE | 2019-03-07 13:05 | PN ---
Progress Note, Physician - Current Medication List Current Medications: Active Medications Acetaminophen (Tylenol -) 650 mg PO Q6H PRN PRN Reason: FEVER Last Admin: 03/06/19 23:57 Dose: 650 mg Amlodipine Besylate (Norvasc -) 5 mg PO DAILY [facility] Last Admin: 03/07/19 10:35 Dose: 5 mg Aspirin (Ecotrin -) 81 mg PO DAILY [facility] Last Admin: 03/07/19 10:36 Dose: 81 mg Diphenhydramine HCl (Benadryl -) 50 mg PO HS PRN PRN Reason: INSOMNIA Last Admin: 03/06/19 21:08 Dose: 50 mg Heparin Sodium (Porcine) (Heparin -) 5,000 unit SQ BID [facility] Last Admin: 03/07/19 10:54 Dose: 5,000 unit Hydrochlorothiazide (Hctz -) 25 mg PO BID [facility] Last Admin: 03/07/19 10:35 Dose: 25 mg Piperacillin Sod/Tazobactam (Sod 3.375 gm/ Dextrose) 50 mls @ 100 mls/hr IVPB Q8H-IV [facility]; Protocol Last Admin: 03/07/19 10:39 Dose: 100 mls/hr Insulin Aspart (Novolog Vial Sliding Scale -) 1 vial SQ ACHS [facility]; Protocol Last Admin: 03/07/19 11:03 Dose: 6 units Insulin Detemir (Levemir Vial) 30 units SQ BID@0700,2200 [facility] Last Admin: 03/07/19 06:30 Dose: 30 units Metformin HCl (Glucophage -) 500 mg PO BIDAC [facility] Last Admin: 03/07/19 06:30 Dose: 500 mg Metoprolol Succinate (Toprol Xl -) 25 mg PO DAILY [facility] Last Admin: 03/07/19 10:36 Dose: 25 mg Ondansetron HCl (Zofran Injection) 4 mg IVPUSH Q6H PRN PRN Reason: NAUSEA AND/OR VOMITING Pantoprazole Sodium (Protonix -) 40 mg PO BID [facility] Last Admin: 03/07/19 10:36 Dose: 40 mg Promethazine HCl (Phenergan Injection -) 12.5 mg IVPUSH Q6H PRN PRN Reason: NAUSEA-FOR RESCUE AFTER 15 MIN Vancomycin HCl (Vancomycin (Pre-Docked)) 1,000 mg IVPB Q12H [facility] Last Admin: 03/07/19 06:30 Dose: 1,000 mg - Objective Vital Signs: Vital Signs Temperature 97.6 F 03/07/19 10:00 Pulse Rate 84 03/07/19 06:00 Respiratory Rate 17 03/07/19 10:00 Blood Pressure 145/78 03/07/19 10:00 O2 Sat by Pulse Oximetry (%) 98 03/06/19 21:00 Labs: CBC, BMP 03/05/19 08:00 03/05/19 08:00 INR, PTT INR 1.03 (0.83-1.09) 03/04/19 20:30
--- NOTE | 2019-03-07 15:08 | PN ---
Progress Note (short form) - Note Progress Note: POD#5. vss, wbc=8.6, +clean dry and intact dressing, -bleeding, +granulation both incision sites, -drainage normal post op cellulitis resolved Betadine dressing change done. Patient may have bathroom privelages while using post op shoe. PT consult cane or walker PWB left heel. Patient may be dc from Podiatry standpoint. Can follow up in c. Abx as per ID. Will follow and change dressing tomorrow.
--- NOTE | 2019-03-07 21:13 | PN ---
Progress Note, Physician History of Present Illness: No further bleeding - Current Medication List Current Medications: Active Medications Acetaminophen (Tylenol -) 650 mg PO Q6H PRN PRN Reason: FEVER Last Admin: 03/06/19 23:57 Dose: 650 mg Amlodipine Besylate (Norvasc -) 5 mg PO DAILY [facility] Last Admin: 03/07/19 10:35 Dose: 5 mg Aspirin (Ecotrin -) 81 mg PO DAILY [facility] Last Admin: 03/07/19 10:36 Dose: 81 mg Diphenhydramine HCl (Benadryl -) 50 mg PO HS PRN PRN Reason: INSOMNIA Last Admin: 03/06/19 21:08 Dose: 50 mg Heparin Sodium (Porcine) (Heparin -) 5,000 unit SQ BID [facility] Last Admin: 03/07/19 10:54 Dose: 5,000 unit Hydrochlorothiazide (Hctz -) 25 mg PO BID [facility] Last Admin: 03/07/19 10:35 Dose: 25 mg Piperacillin Sod/Tazobactam (Sod 3.375 gm/ Dextrose) 50 mls @ 100 mls/hr IVPB Q8H-IV [facility]; Protocol Last Admin: 03/07/19 18:16 Dose: 100 mls/hr Insulin Aspart (Novolog Vial Sliding Scale -) 1 vial SQ ACHS [facility]; Protocol Last Admin: 03/07/19 17:37 Dose: 4 units Insulin Detemir (Levemir Vial) 30 units SQ BID@0700,2200 [facility] Last Admin: 03/07/19 06:30 Dose: 30 units Metformin HCl (Glucophage -) 500 mg PO BIDAC [facility] Last Admin: 03/07/19 18:16 Dose: 500 mg Metoprolol Succinate (Toprol Xl -) 25 mg PO DAILY [facility] Last Admin: 03/07/19 10:36 Dose: 25 mg Ondansetron HCl (Zofran Injection) 4 mg IVPUSH Q6H PRN PRN Reason: NAUSEA AND/OR VOMITING Pantoprazole Sodium (Protonix -) 40 mg PO BID [facility] Last Admin: 03/07/19 10:36 Dose: 40 mg Promethazine HCl (Phenergan Injection -) 12.5 mg IVPUSH Q6H PRN PRN Reason: NAUSEA-FOR RESCUE AFTER 15 MIN Vancomycin HCl (Vancomycin (Pre-Docked)) 1,000 mg IVPB Q12H [facility] Last Admin: 03/07/19 19:21 Dose: 1,000 mg - Objective Vital Signs: Vital Signs Temperature 97.8 F 03/07/19 18:00 Pulse Rate 71 03/07/19 18:00 Respiratory Rate 18 03/07/19 18:00 Blood Pressure 144/67 03/07/19 18:00 O2 Sat by Pulse Oximetry (%) 98 03/07/19 09:00 Constitutional: Yes: Obese Neck: Yes: WNL, Supple Cardiovascular: Yes: WNL, Regular Rate and Rhythm Respiratory: Yes: WNL, Regular, CTA Bilaterally Gastrointestinal: Yes: WNL, Normal Bowel Sounds, Soft, Abdomen, Obese Extremities: Yes: Other (Lt foot in dressing w/ some drainage) Labs: CBC, BMP 03/05/19 08:00 03/05/19 08:00 INR, PTT INR 1.03 (0.83-1.09) 03/04/19 20:30 Problem List - Problems (1) Diabetic foot ulcer Assessment/Plan: Abscess/cellulitis lt foot S/P I&D and debridement Wound cultures show Beta hem strept/diphtheroid/cornybact/staph aureus/ enterococcus fec Blood cultures are negative Cont IV vanco/zosyn Cont wound care Code(s): E11.621 - TYPE 2 DIABETES MELLITUS WITH FOOT ULCER; L97.509 - NON- PRESSURE CHRONIC ULCER OTH PRT UNSP FOOT W UNSP SEVERITY (2) Diabetes Assessment/Plan: Cont levemir/metformin Cont sliding scale w/ coverage Code(s): E11.9 - TYPE 2 DIABETES MELLITUS WITHOUT COMPLICATIONS Qualifiers: Diabetes mellitus type: other specified (including LASHAY) Diabetes mellitus usp insulin use: unspecified usp insulin use status Diabetes mellitus complication status: with hyperglycemia Qualified Code(s): E13.65 - Other specified diabetes mellitus with hyperglycemia (3) CKD (chronic kidney disease) Code(s): N18.9 - CHRONIC KIDNEY DISEASE, UNSPECIFIED (4) HTN (hypertension) Assessment/Plan: BP stable Cont metoprolol/norvasc/Hctz/asa Code(s): I10 - ESSENTIAL (PRIMARY) HYPERTENSION (5) Morbid obesity Code(s): E66.01 - MORBID (SEVERE) OBESITY DUE TO EXCESS CALORIES (6) Peripheral neuropathy Code(s): G62.9 - POLYNEUROPATHY, UNSPECIFIED
[2019-03-07] MEDS: diphenhydrAMINE HCL 25 MG CAPSULE (FP) PO PRN (23:10)
[2019-03-08] MEDS ORDERED: PIPERACILLIN/TAZOBACTAM 3.375 GM VIAL IVPB ONE ×3 (02:17→16:27)
[2019-03-08] MEDS ORDERED: DEXTROSE 5%-WATER - 50 ML IVPB ONE ×3 (02:17→16:28)
[2019-03-08] MEDS: PIPERACILLIN/TAZOB 3.375 GM 3.375 GM in DEXTROSE 5%-WATER - 50 ML IVPB SCH ×3 (02:34→17:33)
[2019-03-08] MEDS: INSULIN SLIDING SCALE (NOVOLOG) 1 VIAL SQ SCH ×4 (06:22→22:53)
[2019-03-08] MEDS: INSULIN (LEVEMIR) 100 UNITS/ML UNITS SQ SCH ×2 (06:23→22:54)
[2019-03-08] MEDS: VANCOMYCIN 1 GM in D5W (PRE-DOCKED) 1,000 MG/250 ML IVPB SCH (06:24)
[2019-03-08] MEDS: metFORMIN HCL 500 MG TABLET (FP) PO SCH ×2 (06:24→17:33)
[2019-03-08 08:28] LABS: EOS % 1.3 % (0-4.5); HEMATOCRIT 30.4 % (35.4-49); LYMPH % 22.4 % (8-40); MCH 25.1 pg (25.7-33.7); MCHC 32.7 g/dl (32.0-35.9); MEAN CELL VOLUME 76.6 fl (80-96); MEAN PLT VOLUME 7.6 fl (7.5-11.1); MONO % 4.7 % (3.8-10.2); NEUT % 70.6 % (42.8-82.8); PLATELET COUNT 576 K/MM3 (134-434); RBC 3.97 M/mm3 (4.00-5.60); RDW 17.6 % (11.9-15.9); WHITE BLOOD COUNT 8.1 K/mm3 (4.0-10.0)
[2019-03-08 08:48] LABS: ALBUMIN 2.8 g/dl (3.4-5.0); BILIRUBIN,TOTAL 0.3 mg/dL (0.2-1); BLOOD UREA NITROGEN 20.5 mg/dL (7-18); CALCIUM 9.2 mg/dL (8.5-10.1); POTASSIUM 4.3 mmol/L (3.5-5.1); TOT PROT 7.2 g/dl (6.4-8.2)
[2019-03-08] MEDS: HYDROCHLOROTHIAZIDE 25 MG TABLET (FP) PO SCH ×2 (09:23→22:56)
[2019-03-08] MEDS: HEPARIN NA (PORCINE) 5,000 UNITS/ML 1ML VIAL SQ SCH ×2 (09:23→22:55)
[2019-03-08] MEDS: ASPIRIN COATED 81 MG TABLET.EC PO SCH (09:24)
[2019-03-08] MEDS: amLODIPine BESYLATE 5 MG TABLET (FP) PO SCH (09:24)
[2019-03-08] MEDS: PANTOPRAZOLE 40 MG TABLET (FP) PO SCH ×2 (09:24→22:57)
[2019-03-08] MEDS: metoPROLOL SUCCINATE 25 MG TAB.SR.24H (FP) PO SCH (09:24)
--- NOTE | 2019-03-08 11:10 | PN ---
Progress Note, Physician - Current Medication List Current Medications: Active Medications Acetaminophen (Tylenol -) 650 mg PO Q6H PRN PRN Reason: FEVER Last Admin: 03/06/19 23:57 Dose: 650 mg Amlodipine Besylate (Norvasc -) 5 mg PO DAILY [facility] Last Admin: 03/08/19 09:24 Dose: 5 mg Aspirin (Ecotrin -) 81 mg PO DAILY [facility] Last Admin: 03/08/19 09:24 Dose: 81 mg Diphenhydramine HCl (Benadryl -) 50 mg PO HS PRN PRN Reason: INSOMNIA Last Admin: 03/07/19 23:10 Dose: 50 mg Heparin Sodium (Porcine) (Heparin -) 5,000 unit SQ BID [facility] Last Admin: 03/08/19 09:23 Dose: 5,000 unit Hydrochlorothiazide (Hctz -) 25 mg PO BID [facility] Last Admin: 03/08/19 09:23 Dose: 25 mg Piperacillin Sod/Tazobactam (Sod 3.375 gm/ Dextrose) 50 mls @ 100 mls/hr IVPB Q8H-IV [facility]; Protocol Last Admin: 03/08/19 09:23 Dose: 100 mls/hr Insulin Aspart (Novolog Vial Sliding Scale -) 1 vial SQ ACHS [facility]; Protocol Last Admin: 03/08/19 06:22 Dose: 4 units Insulin Detemir (Levemir Vial) 30 units SQ BID@0700,2200 [facility] Last Admin: 03/08/19 06:23 Dose: 30 units Metformin HCl (Glucophage -) 500 mg PO BIDAC [facility] Last Admin: 03/08/19 06:24 Dose: 500 mg Metoprolol Succinate (Toprol Xl -) 25 mg PO DAILY [facility] Last Admin: 03/08/19 09:24 Dose: 25 mg Ondansetron HCl (Zofran Injection) 4 mg IVPUSH Q6H PRN PRN Reason: NAUSEA AND/OR VOMITING Pantoprazole Sodium (Protonix -) 40 mg PO BID [facility] Last Admin: 03/08/19 09:24 Dose: 40 mg Promethazine HCl (Phenergan Injection -) 12.5 mg IVPUSH Q6H PRN PRN Reason: NAUSEA-FOR RESCUE AFTER 15 MIN Vancomycin HCl (Vancomycin (Pre-Docked)) 1,000 mg IVPB Q12H [facility] Last Admin: 03/08/19 06:24 Dose: 1,000 mg - Objective Vital Signs: Vital Signs Temperature 97.8 F 03/08/19 06:00 Pulse Rate 79 03/08/19 06:00 Respiratory Rate 18 03/08/19 06:00 Blood Pressure 140/51 L 03/08/19 06:00 O2 Sat by Pulse Oximetry (%) 98 03/07/19 21:00 Labs: CBC, BMP 03/08/19 07:40 03/08/19 07:40 INR, PTT INR 1.03 (0.83-1.09) 03/04/19 20:30
--- NOTE | 2019-03-08 13:17 | PN ---
Progress Note (short form) - Note Progress Note: POD#6 from 2nd procedure. vss, wbc=8.1, +clean dry and intact dressing, -bleeding, +granulation both incision sites, -drainage normal post op cellulitis resolved Betadine dressing change done. Continue bathroom privelages while using post op shoe. Patient may be dc from Podiatry standpoint. [facility] follow up [facility]. Abx as per ID. Will follow and change dressing tomorrow.
--- NOTE | 2019-03-08 22:35 | PN ---
Progress Note, Physician History of Present Illness: No new complaints - Current Medication List Current Medications: Active Medications Acetaminophen (Tylenol -) 650 mg PO Q6H PRN PRN Reason: FEVER Last Admin: 03/06/19 23:57 Dose: 650 mg Amlodipine Besylate (Norvasc -) 5 mg PO DAILY [facility] Last Admin: 03/08/19 09:24 Dose: 5 mg Aspirin (Ecotrin -) 81 mg PO DAILY [facility] Last Admin: 03/08/19 09:24 Dose: 81 mg Diphenhydramine HCl (Benadryl -) 50 mg PO HS PRN PRN Reason: INSOMNIA Last Admin: 03/07/19 23:10 Dose: 50 mg Heparin Sodium (Porcine) (Heparin -) 5,000 unit SQ BID [facility] Last Admin: 03/08/19 09:23 Dose: 5,000 unit Hydrochlorothiazide (Hctz -) 25 mg PO BID [facility] Last Admin: 03/08/19 09:23 Dose: 25 mg Piperacillin Sod/Tazobactam (Sod 3.375 gm/ Dextrose) 50 mls @ 100 mls/hr IVPB Q8H-IV [facility]; Protocol Last Admin: 03/08/19 17:33 Dose: 100 mls/hr Insulin Aspart (Novolog Vial Sliding Scale -) 1 vial SQ ACHS [facility]; Protocol Last Admin: 03/08/19 17:32 Dose: 4 units Insulin Detemir (Levemir Vial) 30 units SQ BID@0700,2200 [facility] Last Admin: 03/08/19 06:23 Dose: 30 units Metformin HCl (Glucophage -) 500 mg PO BIDAC [facility] Last Admin: 03/08/19 17:33 Dose: 500 mg Metoprolol Succinate (Toprol Xl -) 25 mg PO DAILY [facility] Last Admin: 03/08/19 09:24 Dose: 25 mg Ondansetron HCl (Zofran Injection) 4 mg IVPUSH Q6H PRN PRN Reason: NAUSEA AND/OR VOMITING Pantoprazole Sodium (Protonix -) 40 mg PO BID [facility] Last Admin: 03/08/19 09:24 Dose: 40 mg Promethazine HCl (Phenergan Injection -) 12.5 mg IVPUSH Q6H PRN PRN Reason: NAUSEA-FOR RESCUE AFTER 15 MIN - Objective Vital Signs: Vital Signs Temperature 98.1 F 03/08/19 17:46 Pulse Rate 71 07/28/19 17:46 Respiratory Rate 18 03/08/19 17:46 Blood Pressure 147/66 03/08/19 17:46 O2 Sat by Pulse Oximetry (%) 97 03/08/19 10:00 Constitutional: Yes: Obese Neck: Yes: WNL, Supple Cardiovascular: Yes: WNL, Regular Rate and Rhythm Respiratory: Yes: WNL, Regular, CTA Bilaterally Gastrointestinal: Yes: WNL, Normal Bowel Sounds, Soft, Abdomen, Obese Extremities: Yes: Other (Lt foot in dressing) Labs: CBC, BMP 03/08/19 07:40 03/08/19 07:40 INR, PTT INR 1.03 (0.83-1.09) 03/04/19 20:30 Problem List - Problems (1) Diabetic foot ulcer Assessment/Plan: Abscess/cellulitis lt foot S/P I&D and debridement Blood cultures are negative Changed to po augmentin As podiatry dressing changes daily w/ betadine and f/u w/ wound care clinic this week DC planning for am Code(s): E11.621 - TYPE 2 DIABETES MELLITUS WITH FOOT ULCER; L97.509 - NON- PRESSURE CHRONIC ULCER OTH PRT UNSP FOOT W UNSP SEVERITY (2) Anemia Assessment/Plan: Monitor H/H Code(s): D64.9 - ANEMIA, UNSPECIFIED (3) CKD (chronic kidney disease) Code(s): N18.9 - CHRONIC KIDNEY DISEASE, UNSPECIFIED (4) Diabetes Assessment/Plan: Cont levemir/metformin Cont sliding scale w/ coverage Code(s): E11.9 - TYPE 2 DIABETES MELLITUS WITHOUT COMPLICATIONS Qualifiers: Diabetes mellitus type: other specified (including ALSHAY) Diabetes mellitus director long term care insulin use: unspecified director long term care insulin use status Diabetes mellitus complication status: with hyperglycemia Qualified Code(s): E13.65 - Other specified diabetes mellitus with hyperglycemia (5) HTN (hypertension) Assessment/Plan: BP stable Cont metoprolol/norvasc/Hctz/asa Code(s): I10 - ESSENTIAL (PRIMARY) HYPERTENSION
[2019-03-08] MEDS: diphenhydrAMINE HCL 25 MG CAPSULE (FP) PO PRN (22:57)
[2019-03-09] MEDS ORDERED: PIPERACILLIN/TAZOBACTAM 3.375 GM VIAL IVPB ONE ×3 (01:25→17:30)
[2019-03-09] MEDS ORDERED: DEXTROSE 5%-WATER - 50 ML IVPB ONE ×3 (01:26→17:30)
[2019-03-09] MEDS: PIPERACILLIN/TAZOB 3.375 GM 3.375 GM in DEXTROSE 5%-WATER - 50 ML IVPB SCH ×3 (01:42→17:36)
[2019-03-09] MEDS: INSULIN SLIDING SCALE (NOVOLOG) 1 VIAL SQ SCH ×4 (06:32→22:37)
[2019-03-09] MEDS: INSULIN (LEVEMIR) 100 UNITS/ML UNITS SQ SCH ×2 (06:33→22:36)
[2019-03-09] MEDS: metFORMIN HCL 500 MG TABLET (FP) PO SCH ×2 (06:34→16:54)
[2019-03-09] MEDS: HEPARIN NA (PORCINE) 5,000 UNITS/ML 1ML VIAL SQ SCH ×2 (09:12→22:39)
[2019-03-09] MEDS: PANTOPRAZOLE 40 MG TABLET (FP) PO SCH ×2 (09:12→22:35)
[2019-03-09] MEDS: amLODIPine BESYLATE 5 MG TABLET (FP) PO SCH (09:13)
[2019-03-09] MEDS: ASPIRIN COATED 81 MG TABLET.EC PO SCH (09:13)
[2019-03-09] MEDS: metoPROLOL SUCCINATE 25 MG TAB.SR.24H (FP) PO SCH (09:13)
[2019-03-09] MEDS: HYDROCHLOROTHIAZIDE 25 MG TABLET (FP) PO SCH ×2 (09:13→22:36)
--- NOTE | 2019-03-09 09:48 | PN ---
Progress Note, Physician History of Present Illness: stable no new issues - Current Medication List Current Medications: Active Medications Acetaminophen (Tylenol -) 650 mg PO Q6H PRN PRN Reason: FEVER Last Admin: 03/06/19 23:57 Dose: 650 mg Amlodipine Besylate (Norvasc -) 5 mg PO DAILY [facility] Last Admin: 03/09/19 09:13 Dose: 5 mg Aspirin (Ecotrin -) 81 mg PO DAILY [facility] Last Admin: 03/09/19 09:13 Dose: 81 mg Diphenhydramine HCl (Benadryl -) 50 mg PO HS PRN PRN Reason: INSOMNIA Last Admin: 03/08/19 22:57 Dose: 50 mg Heparin Sodium (Porcine) (Heparin -) 5,000 unit SQ BID [facility] Last Admin: 03/09/19 09:12 Dose: 5,000 unit Hydrochlorothiazide (Hctz -) 25 mg PO BID [facility] Last Admin: 03/09/19 09:13 Dose: 25 mg Piperacillin Sod/Tazobactam (Sod 3.375 gm/ Dextrose) 50 mls @ 100 mls/hr IVPB Q8H-IV [facility]; Protocol Last Admin: 03/09/19 09:13 Dose: 100 mls/hr Insulin Aspart (Novolog Vial Sliding Scale -) 1 vial SQ ACHS [facility]; Protocol Last Admin: 03/09/19 06:32 Dose: 4 units Insulin Detemir (Levemir Vial) 30 units SQ BID@0700,2200 [facility] Last Admin: 03/09/19 06:33 Dose: 30 units Metformin HCl (Glucophage -) 500 mg PO BIDAC [facility] Last Admin: 03/09/19 06:34 Dose: 500 mg Metoprolol Succinate (Toprol Xl -) 25 mg PO DAILY [facility] Last Admin: 03/09/19 09:13 Dose: 25 mg Ondansetron HCl (Zofran Injection) 4 mg IVPUSH Q6H PRN PRN Reason: NAUSEA AND/OR VOMITING Pantoprazole Sodium (Protonix -) 40 mg PO BID [facility] Last Admin: 03/09/19 09:12 Dose: 40 mg Promethazine HCl (Phenergan Injection -) 12.5 mg IVPUSH Q6H PRN PRN Reason: NAUSEA-FOR RESCUE AFTER 15 MIN - Objective Vital Signs: Vital Signs Temperature 98.9 F 03/09/19 06:00 Pulse Rate 100 H 03/09/19 09:00 Respiratory Rate 18 03/09/19 09:00 Blood Pressure 156/80 03/09/19 09:00 O2 Sat by Pulse Oximetry (%) 97 03/08/19 21:00 Constitutional: Yes: No Distress, Calm Cardiovascular: Yes: S1, S2 Respiratory: Yes: Regular Gastrointestinal: Yes: Normal Bowel Sounds, Soft Musculoskeletal: Yes: WNL Extremities: Yes: Other Wound/Incision: Yes: Dressing Dry and Intact Neurological: Yes: Alert, Oriented Psychiatric: Yes: Alert, Oriented Labs: CBC, BMP 03/08/19 07:40 03/08/19 07:40 INR, PTT INR 1.03 (0.83-1.09) 03/04/19 20:30 Assessment/Plan Problem List - Problems (1) Cellulitis of foot, left Code(s): L03.116 - CELLULITIS OF LEFT LOWER LIMB (2) Diabetic foot ulcer Code(s): E11.621 - TYPE 2 DIABETES MELLITUS WITH FOOT ULCER; L97.509 - NON- PRESSURE CHRONIC ULCER OTH PRT UNSP FOOT W UNSP SEVERITY (3) CKD (chronic kidney disease) Code(s): N18.9 - CHRONIC KIDNEY DISEASE, UNSPECIFIED (4) Diabetes Code(s): E11.9 - TYPE 2 DIABETES MELLITUS WITHOUT COMPLICATIONS Qualifiers: Diabetes mellitus type: other specified (including LASAHY) 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 insulin use: unspecified correction insulin use status Diabetes mellitus complication status: with hyperglycemia Qualified Code(s): E13.65 - Other specified diabetes mellitus with hyperglycemia (5) HTN (hypertension) Code(s): I10 - ESSENTIAL (PRIMARY) HYPERTENSION (6) Morbid obesity Code(s): E66.01 - MORBID (SEVERE) OBESITY DUE TO EXCESS CALORIES (7) Peripheral neuropathy Code(s): G62.9 - POLYNEUROPATHY, UNSPECIFIED (8) Sepsis Code(s): A41.9 - SEPSIS, UNSPECIFIED ORGANISM Qualifiers: Sepsis type: sepsis due to unspecified organism Qualified Code(s): A41.9 - Sepsis, unspecified organism Assessment/Plan Lt foot cellulitis/ abscess s/p I+D POD#3 Possible Lt 2nd MT head OM Fever Leukocytosis DM CKD Hx of Lt foot OM s/p amp of 3rd/4th/5th toe Morbid obesity continue current mgmt wound care rest as per the team will d/w the podiatry team
[2019-03-09] MEDS: diphenhydrAMINE HCL 25 MG CAPSULE (FP) PO PRN (22:50)
[2019-03-10] MEDS ORDERED: PIPERACILLIN/TAZOBACTAM 3.375 GM VIAL IVPB ONE ×2 (01:41→10:17)
[2019-03-10] MEDS ORDERED: DEXTROSE 5%-WATER - 50 ML IVPB ONE ×2 (01:41→10:17)
[2019-03-10] MEDS: PIPERACILLIN/TAZOB 3.375 GM 3.375 GM in DEXTROSE 5%-WATER - 50 ML IVPB SCH ×2 (03:02→10:30)
[2019-03-10] MEDS: INSULIN SLIDING SCALE (NOVOLOG) 1 VIAL SQ SCH (06:44)
[2019-03-10] MEDS: INSULIN (LEVEMIR) 100 UNITS/ML UNITS SQ SCH (06:45)
[2019-03-10] MEDS: metFORMIN HCL 500 MG TABLET (FP) PO SCH (06:47)
[2019-03-10] MEDS: PANTOPRAZOLE 40 MG TABLET (FP) PO SCH (10:31)
[2019-03-10] MEDS: HYDROCHLOROTHIAZIDE 25 MG TABLET (FP) PO SCH (10:31)
[2019-03-10] MEDS: metoPROLOL SUCCINATE 25 MG TAB.SR.24H (FP) PO SCH (10:31)
[2019-03-10] MEDS: HEPARIN NA (PORCINE) 5,000 UNITS/ML 1ML VIAL SQ SCH (10:31)
[2019-03-10] MEDS: amLODIPine BESYLATE 5 MG TABLET (FP) PO SCH (10:32)
[2019-03-10] MEDS: ASPIRIN COATED 81 MG TABLET.EC PO SCH (10:32)
--- NOTE | 2019-03-10 11:48 | PN ---
Progress Note, Physician - Current Medication List Current Medications: Active Medications Acetaminophen (Tylenol -) 650 mg PO Q6H PRN PRN Reason: FEVER Last Admin: 03/06/19 23:57 Dose: 650 mg Amlodipine Besylate (Norvasc -) 5 mg PO DAILY [facility] Last Admin: 03/10/19 10:32 Dose: 5 mg Aspirin (Ecotrin -) 81 mg PO DAILY [facility] Last Admin: 03/10/19 10:32 Dose: 81 mg Diphenhydramine HCl (Benadryl -) 50 mg PO HS PRN PRN Reason: INSOMNIA Last Admin: 03/09/19 22:50 Dose: 50 mg Heparin Sodium (Porcine) (Heparin -) 5,000 unit SQ BID [facility] Last Admin: 03/10/19 10:31 Dose: 5,000 unit Hydrochlorothiazide (Hctz -) 25 mg PO BID [facility] Last Admin: 03/10/19 10:31 Dose: 25 mg Piperacillin Sod/Tazobactam (Sod 3.375 gm/ Dextrose) 50 mls @ 100 mls/hr IVPB Q8H-IV [facility]; Protocol Last Admin: 03/10/19 10:30 Dose: 100 mls/hr Insulin Aspart (Novolog Vial Sliding Scale -) 1 vial SQ ACHS [facility]; Protocol Last Admin: 03/10/19 06:44 Dose: 2 units Insulin Detemir (Levemir Vial) 30 units SQ BID@0700,2200 [facility] Last Admin: 03/10/19 06:45 Dose: 30 units Metformin HCl (Glucophage -) 500 mg PO BIDAC [facility] Last Admin: 03/10/19 06:47 Dose: 500 mg Metoprolol Succinate (Toprol Xl -) 25 mg PO DAILY [facility] Last Admin: 03/10/19 10:31 Dose: 25 mg Ondansetron HCl (Zofran Injection) 4 mg IVPUSH Q6H PRN PRN Reason: NAUSEA AND/OR VOMITING Pantoprazole Sodium (Protonix -) 40 mg PO BID [facility] Last Admin: 03/10/19 10:31 Dose: 40 mg Promethazine HCl (Phenergan Injection -) 12.5 mg IVPUSH Q6H PRN PRN Reason: NAUSEA-FOR RESCUE AFTER 15 MIN - Objective Vital Signs: Vital Signs Temperature 98.2 F 03/10/19 06:00 Pulse Rate 80 03/10/19 06:00 Respiratory Rate 20 03/10/19 06:00 Blood Pressure 113/52 L 03/10/19 06:00 O2 Sat by Pulse Oximetry (%) 97 03/09/19 21:00 Labs: CBC, BMP 03/08/19 07:40 03/08/19 07:40 INR, PTT INR 1.03 (0.83-1.09) 03/04/19 20:30
[2019-03-10 15:44] VITALS: BP 106/64; PULSE 72; TEMP 98
--- NOTE | 2019-03-15 23:55 | DS ---
Physical Examination Vital Signs: Vital Signs Temperature 98.0 F 03/10/19 10:00 Pulse Rate 72 03/10/19 10:00 Respiratory Rate 19 03/10/19 10:00 Blood Pressure 106/64 03/10/19 10:00 O2 Sat by Pulse Oximetry (%) 97 03/10/19 09:00 Neck: Yes: WNL, Supple Cardiovascular: Yes: WNL, Regular Rate and Rhythm Respiratory: Yes: WNL, Regular, CTA Bilaterally Gastrointestinal: Yes: WNL, Normal Bowel Sounds, Soft Extremities: Yes: Other (Lt foot in dressing) Labs: CBC, BMP 03/08/19 07:40 03/08/19 07:40 Discharge Summary Reason For Visit: DIABETIC INFECTION OF LEFT FOOT Diabetic Foot Ulcer Sepsis Cellulitis Abscess Diabetes HTN HLD Hospital Course: Pt is a 58 year old male with PMH significant for HTN, CAD, IDDM s/p multiple prior L foot I&Ds and previous amputations (L toes 3/4/5) who presented to the ER with new L foot infection. Pt was started on IV antibcs for diabetic foot ulcer/cellulitis/abscess and underwent debridement of lt foot. Hospital course was uncomplicated. Pt was followed by ID/podiatry. Cont wound care and po antibxss on discharge Condition: Good - Instructions Diet, Activity, Other Instructions: 2 gram sodium and 2200 calorie diabetic diet See Dr Gal Becerra in 1 week Wound dressing: Change dressing daily w/ betadine Patient to follow with wound care clinic on and with tennis ball coverer hand(Dr Galindo). No dressing change Saturday03/11/19 Disposition: VNS/HOME HEALTH CARE - Home Medications Comprehensive Discharge Medication List: Ambulatory Orders Aspirin Coated [Ecotrin -] 81 mg PO DAILY #30 tablet.ec 04/25/16 Insulin (Levemir) [Levemir Vial] 30 units SQ BID 04/28/16 Amlodipine Besylate [Norvasc -] 5 mg PO DAILY 02/15/17 Hydrochlorothiazide [Hctz -] 25 mg PO BID 02/15/17 Metoprolol Succinate [Toprol XL -] 25 mg PO DAILY 02/15/17 metFORMIN HCL [Glucophage -] 500 mg PO BID 02/15/17 Pantoprazole Sodium [Protonix -] 40 mg PO BID #30 tab 05/14/17 Naproxen [Naprosyn] 500 mg PO BID #60 tablet 12/19/17 Amox-Tr/K Cl [Augmentin - 875Mg Tablet] 1 tab PO BID #20 tablet 03/09/19
--- NOTE | 2019-04-13 14:42 | OP ---
DATE OF OPERATION: 02/26/2019 PREOPERATIVE DIAGNOSIS: Abscess with cellulitis, left foot. POSTOPERATIVE DIAGNOSIS: Abscess with cellulitis, left foot. PROCEDURE: Incision and drainage, left foot with 1000 mL pulse lavage bacitracin saline. DESCRIPTION OF PROCEDURE: After all preoperative vital signs were within normal limits and after surgical consent was signed and witnessed, patient was brought to the OR, placed on a table in a supine position. An IV line had been started prior to the patient coming to the OR. Once the patient was in the OR, the patient was given anesthesia. The foot was then prepped and draped in the usual sterile fashion. Attention was directed to the plantar aspect of the foot where there was noted to be a large abscess that was draining through the wound. An incision was created approximately 7 cm in length on the plantar medial aspect below the 1st metatarsal area extending proximally. This incision was deepened using sharp and blunt dissection. At this time, it was noted that there was purulent drainage foul smelling, which was then cultured and sent down to microbiology. Once this incision was deepened and all purulent drainage had been excised, the area was flushed with 1000 mL of pulse lavage that had antibiotics added to it. Once this was done, the wound was then packed with iodoform gauze, and a gauze dressing was applied with Kali. Once this was done, the patient had tolerated the anesthesia and the procedure well, patient returned to recovery room vital signs stable and vascular status intact. MAGGIE Strickland/[id number]
--- NOTE | 2019-04-13 14:48 | OP ---
DATE OF OPERATION: 03/02/2019 SURGEON: Nikunj Galindo DPM PREOPERATIVE DIAGNOSIS: Abscess cellulitis, left foot, unresolved. PROCEDURE: Incision and drainage of abscess left foot. POSTOPERATIVE DIAGNOSIS: Abscess, left foot. DESCRIPTION OF PROCEDURE: After noting all preoperative signs were within normal limits and after the surgical consent was signed and witnessed, patient was brought to the OR, placed on a table in supine position. The patient had been brought back to the OR due to an uncontrolled infection of his foot. At this time, the foot was then prepped and draped in the usual fashion after the patient was anesthetized. Attention was directed to the original incision from the 1st surgery. This incision was extended both distally and proximally from a size of 7 cm to 15 cm. At this time, it was explored. There was noted to be some drainage, which was then expressed from the area. There was no foreign body identified at this time. Attention was then directed to the dorsal aspect of the left foot where a 10 cm incision was created extending from the 1st metatarsal proximally. This incision was deepened using sharp and blunt dissection, and copious amounts of drainage were noted. This area was cultured again. That culture was sent down to microbiology. The area was then pulse lavage utilizing antibiotic irrigation. The wound was then packed using iodoform packing in 1-inch size. Dry, sterile gauze, Kali dressing, and an Heber bandage were applied. The patient tolerated the anesthesia and the procedure well. Patient returned to recovery room vital signs stable and vascular status intact. MAGGIE Strickalnd/[id number]
== END 2019-03-10 12:11 | disposition home health service (06) | DRG 710 ==
LOC: JER 19:25 → JERBED 22:41 → J5S 02-26 20:11
PROVIDERS: ADMIT Internal Medicine; ATTEND Internal Medicine
PROC: 0Y9N3ZZ Drainage of Left Foot, Percutaneous Approach (ICD-10-PCS; 2019-02-26)
PROC: 0JDR0ZZ Extraction of Left Foot Subcutaneous Tissue and Fascia, Open Approach (ICD-10-PCS; principal; 2019-03-02 13:00)
DX: A41.9 Sepsis, unspecified organism (principal); E11.621 Type 2 diabetes mellitus with foot ulcer; L97.529 Non-pressure chronic ulcer of other part of left foot with unspecified severity; E87.1 Hypo-osmolality and hyponatremia; E11.40 Type 2 diabetes mellitus with diabetic neuropathy, unspecified; L03.116 Cellulitis of left lower limb; E11.51 Type 2 diabetes mellitus with diabetic peripheral angiopathy without gangrene; E66.01 Morbid (severe) obesity due to excess calories; Z68.41 Body mass index [BMI] 40.0-44.9, adult; E11.22 Type 2 diabetes mellitus with diabetic chronic kidney disease; I12.9 Hypertensive chronic kidney disease with stage 1 through stage 4 chronic kidney disease, or unspecified chronic kidney disease; I25.10 Atherosclerotic heart disease of native coronary artery without angina pectoris; N18.9 Chronic kidney disease, unspecified; Z79.4 Long term (current) use of insulin; Z89.422 Acquired absence of other left toe(s); D64.9 Anemia, unspecified
CPT/HCPCS: 36415; 71046-TC-FY; 73630-TC-LT; 73718-TC-LT; 80048; 80053; 82962; 83036; 83605; 83880; 85025; 85610; 85651; 85730; 86140; 86850; 86900; 86901; 87040; 87070; 87077; 87186; 87205; 88304-TC; 93005; 93010; 94760; 97116-GP; 99285-25; G0480; J0131; J1644

== ENCOUNTER 2019-05-18 12:34 | Emergency (ER) | payer OTHER ==
[2019-05-18 12:42] VITALS: TEMP 98.7; BMI 38.2
--- NOTE | 2019-05-18 14:01 | PDOC ---
History of Present Illness - General Chief Complaint: Wound Stated Complaint: WOUND Time Seen by Provider: 05/18/19 13:59 History Source: Patient - History of Present Illness Occurred: reports: yesterday Lower Extremity Pain Location: left: leg Past History - Past Medical History Allergies/Adverse Reactions: Allergies Allergy/AdvReac Type Severity Reaction Status Date / Time No Known Allergies Allergy Verified 05/18/19 12:42 Home Medications: Ambulatory Orders Aspirin Coated [Ecotrin -] 81 mg PO DAILY #30 tablet.ec 04/25/16 Insulin (Levemir) [Levemir Vial] 30 units SQ BID 04/28/16 Amlodipine Besylate [Norvasc -] 5 mg PO DAILY 02/15/17 Hydrochlorothiazide [Hctz -] 25 mg PO BID 02/15/17 Metoprolol Succinate [Toprol XL -] 25 mg PO DAILY 02/15/17 metFORMIN HCL [Glucophage -] 500 mg PO BID 02/15/17 Pantoprazole Sodium [Protonix -] 40 mg PO BID #30 tab 05/14/17 Naproxen [Naprosyn] 500 mg PO BID #60 tablet 12/19/17 Becaplermin [Regranex] 15 gm TP DAILY #1 gel..gram. 03/19/19 Acetaminophen [Tylenol -] 1,000 mg PO Q6H #30 tablet 05/18/19 levoFLOXacin [Levaquin] 750 mg PO DAILY #10 tab 05/18/19 Anemia: No Asthma: No Cancer: No Cardiac Disorders: Yes CVA: No COPD: No CHF: No Dementia: No Diabetes: Yes (iddm) GI Disorders: Yes (HX.ULCER) Disorders: No HTN: Yes Hypercholesterolemia: Yes Liver Disease: No Seizures: No Thyroid Disease: No - Surgical History Abdominal Surgery: Yes (LEFT INGUINAL HERNIA REPAIR) Appendectomy: No Cardiac Surgery: No Cholecystectomy: No Lung Surgery: No Neurologic Surgery: No Orthopedic Surgery: Yes (L foot 3rd 4th and 5th digits amputated) - Psycho Social/Smoking Cessation Hx Smoking History: Former smoker Have you smoked in the past 12 months: No If you are a former smoker, when did you quit?: 1976 Information on smoking cessation initiated: No Hx Alcohol Use: No Drug/Substance Use Hx: No Substance Use Type: None Hx Substance Use Treatment: No Review of Systems - Review of Systems Constitutional: No: Chills, Fever, Malaise, Weakness Respiratory: No: Shortness of Breath Cardiac (ROS): No: Chest Pain, Palpitations Integumentary: Yes: Erythema *Physical Exam - Vital Signs Last Vital Signs Temp Pulse Resp BP Pulse Ox 98.7 F 88 18 110/68 98 05/18/19 12:39 05/18/19 12:39 05/18/19 12:39 05/18/19 12:39 05/18/19 12:39 - Physical Exam General Appearance: Yes: Appropriately Dressed. No: Apparent Distress HEENT: positive: Normal Voice Neck: positive: Supple Respiratory/Chest: negative: Respiratory Distress Extremity: positive: Other (LLE: chronic alison plantar wounds w/ diffuse ttp to L foot w/ circumferential erythema/warmth/ttp to L leg) Integumentary: positive: Dry, Warm Neurologic: positive: Fully Oriented, Alert, Normal Mood/Affect ED Treatment Course - LABORATORY CBC & Chemistry Diagram: 05/18/19 14:30 05/18/19 14:30 Medical Decision Making - Medical Decision Making 05/18/19 14:00 58-year-old male history of IDDM, s/p amputations to multiple L toes, chronic wounds to plantar L foot, s/p follow-up appointment with Dr. Cummings of ID today and found to have LLE erythema and warmth and sent in for evaluation. Pt states redness and pain started yesterday. Patient denies any fever chills or malaise. Feels well otherwise. F/u with [employer], Dr Galindo see exam LLE cellulitis No systemic s/s Well alison and stable w/ LLE erythema/warmth/ttp, plantar wounds C/D/I -pain control -IV abx (wound cx 02/27 w/ staph and enterococcus-sen to vanc) -labs -XR -discus dispo w/ referring MD 05/18/19 16:50 Labs and XR unremarkable. Patient seen by Dr. Galindo in ED who states chronic wounds well appearing, suspects vasculitis more likely than cellulitis. Does recommend discharging with oral levaquin based on recent wound cultures. States patient has appointment in wound clinic tomorrow Discharge - Discharge Information Problems reviewed: Yes Clinical Impression/Diagnosis: Cellulitis Qualifiers: Site of cellulitis: extremity Site of cellulitis of extremity: lower extremity Laterality: left Qualified Code(s): L03.116 - Cellulitis of left lower limb Condition: Good Disposition: HOME - Additional Discharge Information Prescriptions: Acetaminophen [Tylenol -] 1,000 mg PO Q6H #30 tablet levoFLOXacin [Levaquin] 750 mg PO DAILY #10 tab - Follow up/Referral Referrals: Gal Becerra MD [Primary Care Provider] - - Patient Discharge Instructions Patient Printed Discharge Instructions: Cellulitis Additional Instructions: Take antibiotics and pain meds as prescribed and follow-up in wound care tomorrow Please return to the ER for worsening of symptoms as discussed today - Post Discharge Activity
[2019-05-18] MEDS ORDERED: VANCOMYCIN 1,000 MG in DEXTROSE 5%-WATER - 250 ML IVPB ONE (14:25)
[2019-05-18] MEDS ORDERED: VANCOMYCIN 1 GRAM (PRE-DOCKED) 1,000 MG/250 ML BAG IVPB ONE (14:40)
[2019-05-18 14:54] LABS: BASO % 0.4 % (0-2.0); EOS % 0.9 % (0-4.5); HEMATOCRIT 33.1 % (35.4-49); HEMOGLOBIN 10.5 GM/dL (11.7-16.9); LYMPH % 26.4 % (8-40); MCH 23.5 pg (25.7-33.7); MCHC 31.7 g/dl (32.0-35.9); MEAN CELL VOLUME 74.3 fl (80-96); MEAN PLT VOLUME 8.6 fl (7.5-11.1); MONO % 6.2 % (3.8-10.2); NEUT % 66.1 % (42.8-82.8); PLATELET COUNT 440 K/MM3 (134-434); RBC 4.45 M/mm3 (4.00-5.60); RDW 16.8 % (11.9-15.9); WHITE BLOOD COUNT 8.3 K/mm3 (4.0-10.0)
[2019-05-18 15:26] LABS: ALBUMIN 3.4 g/dl (3.4-5.0); BILIRUBIN,TOTAL 0.8 mg/dL (0.2-1); BLOOD UREA NITROGEN 18.8 mg/dL (7-18); CALCIUM 8.7 mg/dL (8.5-10.1); POTASSIUM 5.6 mmol/L (3.5-5.1); TOT PROT 7.6 g/dl (6.4-8.2)
[2019-05-18 15:45] VITALS: BP 132/71; PULSE 73
== END 2019-05-18 16:30 | disposition home or self-care (01) ==
LOC: JER 12:34
DX: E11.52 Type 2 diabetes mellitus with diabetic peripheral angiopathy with gangrene (principal); M86.672 Other chronic osteomyelitis, left ankle and foot; Z79.4 Long term (current) use of insulin
CPT/HCPCS: 36415; 73630-TC-LT; 80053; 82962; 85025; 99282-25; G0277; G0463-25

== ENCOUNTER 2019-07-07 15:12 | Observation (INO) | payer OTHER ==
--- NOTE | 2019-07-07 15:30 | PDOC ---
Rapid Medical Evaluation Chief Complaint: CVA/TIA Time Seen by Provider: 07/07/19 15:24 Medical Evaluation: Allergies Allergy/AdvReac Type Severity Reaction Status Date / Time No Known Allergies Allergy Verified 05/18/19 12:42 07/07/19 15:25 I have performed a brief in-person evaluation of this patient. The patient presents with a chief complaint of:sent from Dr Muñoz for headache and altered gait. Started this 12 noon Pertinent physical exam findings: speach slurred, unable to walk, left side weakness I have ordered the following: Code Escoto The patient will proceed to the ED for further evaluation. 07/07/19 15:27 Discharge Disposition - Diagnosis Weakness - Referrals - Patient Instructions - Post Discharge Activity
--- NOTE | 2019-07-07 16:16 | PDOC ---
History of Present Illness - General Chief Complaint: CVA/TIA Stated Complaint: WEAKNESS Time Seen by Provider: 07/07/19 15:24 History Source: Patient, Family (son at bedside) Exam Limitations: No Limitations - History of Present Illness Initial Comments: 07/07/19 16:10 58-year-old male with history of hypertension, high cholesterol, diabetes brought in by son after referred by PCP for acute weakness. Patient was in usual state of health, ambulating with cane secondary to left foot disease, went to scheduled cardiology appointment and while walking to the office from the parking lot felt sudden onset of right-sided weakness with drifting to the right while walking. Reports some right leg weakness but denies any other symptoms, slight right-sided headache. His sports management intern referred patient to his PCP, Dr. Oh, who referred him to the emergency department. Upon arrival, code arauz was activated from triage based on right-sided headache with right-sided weakness, stroke protocol was initiated. Patient denies any fall or head injury, denies any chest pain or palpitations, reports symptoms have slightly improved. NIH Stroke Scale - Last Known Well Date/Time & Onset Date Last Known Well: 07/07/19 Time Last Known Well: 11:00 - Initial Evaluation Level of consciousness: Alert Ask patient the month and their age: Answers both correctly Ask patient to open & close eyes; make fist and let go: Obeys both correctly Best gaze (horizontal eye movement): Normal Visual field testing: No visual field loss Facial paresis (Show teeth/raise eyebrows/close eyes tight): Normal symmetrical movement Motor Function: Left Arm: Normal Motor Function: Right Arm: Normal (extends arm 90 (or 45) degrees for 10 seconds without drift Motor Function: Left Leg: Normal (extends leg 30 degrees for 5 seconds without drift) Motor Function: Right Leg: Drift Limb Ataxia: No ataxia Sensory(Use pinprick test arms,legs,trunk,face/side to side): Normal Best language (Describe picture, name items, read sentences): No Aphasia Dysarthria (read several words): Mild to moderate slurring of words Extinction and Inattention: No abnormality - Total Score NIH Stroke Scale Score: 2 Past History - Past Medical History Allergies/Adverse Reactions: Allergies Allergy/AdvReac Type Severity Reaction Status Date / Time No Known Allergies Allergy Verified 05/18/19 12:42 Home Medications: Ambulatory Orders Aspirin Coated [Ecotrin -] 81 mg PO DAILY #30 tablet.ec 04/25/16 Insulin (Levemir) [Levemir Vial] 30 units SQ BID 04/28/16 Amlodipine Besylate [Norvasc -] 5 mg PO DAILY 02/15/17 Hydrochlorothiazide [Hctz -] 25 mg PO BID 02/15/17 Metoprolol Succinate [Toprol XL -] 25 mg PO DAILY 02/15/17 metFORMIN HCL [Glucophage -] 500 mg PO BID 02/15/17 Pantoprazole Sodium [Protonix -] 40 mg PO BID #30 tab 05/14/17 Naproxen [Naprosyn] 500 mg PO BID #60 tablet 12/19/17 Becaplermin [Regranex] 15 gm TP DAILY #1 gel..gram. 03/19/19 Acetaminophen [Tylenol -] 1,000 mg PO Q6H #30 tablet 05/18/19 Amoxicillin/Potassium Clav [Amox-Clav 875-125 mg Tablet] 1 each PO BID #20 tablet 07/06/19 Anemia: No Asthma: No Cancer: No Cardiac Disorders: Yes CVA: No COPD: No CHF: No Dementia: No Diabetes: Yes (iddm) GI Disorders: Yes (HX.ULCER) Disorders: No HTN: Yes Hypercholesterolemia: Yes Liver Disease: No Seizures: No Thyroid Disease: No - Surgical History Abdominal Surgery: Yes (LEFT INGUINAL HERNIA REPAIR) Appendectomy: No Cardiac Surgery: No Cholecystectomy: No Lung Surgery: No Neurologic Surgery: No Orthopedic Surgery: Yes (L foot 3rd 4th and 5th digits amputated) - Psycho Social/Smoking Cessation Hx Smoking History: Unknown if ever smoked Have you smoked in the past 12 months: No If you are a former smoker, when did you quit?: 1976 Hx Alcohol Use: No Drug/Substance Use Hx: No Substance Use Type: None Hx Substance Use Treatment: No Review of Systems - Review of Systems Constitutional: No: Chills, Fever HEENTM: No: Recent change in vision Respiratory: No: Cough, Shortness of Breath Cardiac (ROS): No: Chest Pain, Edema, Palpitations ABD/GI: No: Nausea, Vomiting Neurological: Yes: See HPI, Headache. No: Weakness All Other Systems: Reviewed and Negative *Physical Exam - Vital Signs Last Vital Signs Temp Pulse Resp BP Pulse Ox 98.1 F 92 H 14 166/82 99 07/07/19 15:15 07/07/19 15:15 07/07/19 15:15 07/07/19 15:15 07/07/19 15:15 - Physical Exam Comments: 07/07/19 16:17 GENERAL: The patient is awake, alert, and fully oriented, in no acute distress. HEAD: Normal with no signs of trauma. EYES: PERRL, EOMI, sclera anicteric, conjunctiva clear with no pallor. ENT: oropharynx clear without exudates. Moist mucous membranes. NECK: Normal range of motion, supple without lymphadenopathy, JVD, or masses. LUNGS: [Breath sounds equal, clear to auscultation bilaterally. No wheeze/ crackles. HEART: [Regular rate and rhythm, normal S1 and S2 without murmur or rub. ABDOMEN: Soft/nontender/nondistended. BS wnl. No guarding or rebound. No palpable masses. No hepatosplenomegaly. EXTREMITIES: L foot dressing for chronic wound. 1+ distal pulses. No cords, erythema, or tenderness. NEUROLOGICAL: see NIHSS. Gait slightly unsteady favoring RLE PSYCH: [Normal mood, normal affect. SKIN: Warm, Dry, no rashes or lesions noted. Heart Score/ECG Review #1 ECG reviewed & interpreted by me at: 15:53 General ECG Interpretation: Sinus Rhythm, Normal Rate (87), Normal Intervals ( qtc 423), No acute ischemic changes (TWI I/AVL,) Medical Decision Making - Critical Care Time Total Critical Care Time (minutes): 45 Critical Care Statement: The care of this patient involved high complexity decision making to prevent further life threatening deterioration of the patient 's condition and/or to evaluate & treat vital organ system(s) failure or risk of failure. - Medical Decision Making 07/07/19 16:21 This is a 58-year-old male with history of hypertension and high cholesterol who presents with sudden onset of right-sided weakness at 11 AM while at scheduled cardiology appointment. Arrived 4 hours and 15 minutes after symptom onset, conner arauz activated immediately upon assessment, CT head performed with NIH score of 2. Evaluated at bedside with Dr. Mendoza of neurology, appears to have improving stroke syndrome or mild stroke, not consistent with large vessel occlusion stroke, and with relatively low deficit. Code arauz and stroke protocol initiated CT head without acute pathology NIH score of 2, not clinically consistent with large vessel occlusion to indicate CTA Check labs, EKG Neurology consulted We will give aspirin and statin Admit to stroke unit Discharge - Discharge Information Clinical Impression/Diagnosis: Weakness Cerebrovascular accident (CVA) Qualifiers: CVA mechanism: unspecified Qualified Code(s): I63.9 - Cerebral infarction, unspecified Condition: Guarded - Follow up/Referral - Patient Discharge Instructions - Post Discharge Activity
[2019-07-07] MEDS ORDERED: ASPIRIN 325 MG TABLET PO ONE (16:25)
[2019-07-07] MEDS ORDERED: ATORVASTATIN CA 80 MG TABLET (FP) PO ONE (16:25)
[2019-07-07 17:08] LABS: BASO % 0.6 % (0-2.0); EOS % 0.6 % (0-4.5); HEMATOCRIT 36.2 % (35.4-49); HEMOGLOBIN 11.4 GM/dL (11.7-16.9); LYMPH % 21.7 % (8-40); MCH 22.4 pg (25.7-33.7); MCHC 31.5 g/dl (32.0-35.9); MEAN CELL VOLUME 71.2 fl (80-96); MEAN PLT VOLUME 8.2 fl (7.5-11.1); MONO % 4.3 % (3.8-10.2); NEUT % 72.8 % (42.8-82.8); PLATELET COUNT 386 K/MM3 (134-434); RBC 5.09 M/mm3 (4.00-5.60); RDW 17.2 % (11.9-15.9); WHITE BLOOD COUNT 9.3 K/mm3 (4.0-10.0)
[2019-07-07] MEDS ORDERED: ASPIRIN 81 MG CHEWABLE TABLETS ONE (17:35)
[2019-07-07] MEDS ORDERED: ATORVASTATIN CA 40 MG TABLET (FP) ONE (17:36)
[2019-07-07 17:38] LABS: ALBUMIN 3.7 g/dl (3.4-5.0); BILIRUBIN,TOTAL 0.7 mg/dL (0.2-1); BLOOD UREA NITROGEN 27.3 mg/dL (7-18); CALCIUM 8.9 mg/dL (8.5-10.1); HDL CHOLESTEROL 36 mg/dL (40-60); LDL CHOLESTEROL (ONLY SJRH) 60 mg/dL (5-100); POTASSIUM 4.1 mmol/L (3.5-5.1); TOT PROT 7.5 g/dl (6.4-8.2); TRIGLYCERIDES 177 mg/dL (0-150)
[2019-07-07] MEDS: SODIUM CHLORIDE 1,000 ML IV SCH (17:46)
[2019-07-07 18:36] LABS: URINE APPEARANCE CLEAR; URINE BILIRUBIN NEGATIVE (NEGATIVE); URINE COLOR YELLOW; URINE GLUCOSE (UA) NEGATIVE (NEGATIVE); URINE KETONE NEGATIVE (NEGATIVE); URINE LEUK ESTERASE NEGATIVE (NEGATIVE); URINE NITRITE NEGATIVE (NEGATIVE); URINE PROTEIN NEGATIVE (NEGATIVE); URINE UROBILINOGEN 0.2 mg/dL (0.2-1.0)
--- NOTE | 2019-07-07 20:06 | CON.NEURO ---
Consult - Past Medical History [employer]: Yes: Peripheral Neuropathy Cardio/Vascular: Yes: HTN, Hyperlipdemia Renal/: Yes: Renal Inusuff Infectious Disease: Yes: Other (LLE osteo on MRI here 06/2015) Endocrine: Yes: Diabetes Mellitus (on Victoza) - Past Surgical History Past Surgical History: Yes: Hernia Repair (left inguinal) - Alcohol/Substance Use Hx Alcohol Use: No History of Substance Use: reports: None - Smoking History Smoking history: Unknown if ever smoked Have you smoked in the past 12 months: No If you are a former smoker, when did you quit?: 1976 - Social History ADL: Independent History of Recent Travel: No Home Medications - Allergies Allergies/Adverse Reactions: Allergies Allergy/AdvReac Type Severity Reaction Status Date / Time No Known Allergies Allergy Verified 05/18/19 12:42 - Home Medications Home Medications: Ambulatory Orders Aspirin Coated [Ecotrin -] 81 mg PO DAILY #30 tablet.ec 04/25/16 Insulin (Levemir) [Levemir Vial] 30 units SQ BID 04/28/16 Amlodipine Besylate [Norvasc -] 5 mg PO DAILY 02/15/17 Hydrochlorothiazide [Hctz -] 25 mg PO BID 02/15/17 Metoprolol Succinate [Toprol XL -] 25 mg PO DAILY 02/15/17 metFORMIN HCL [Glucophage -] 500 mg PO BID 02/15/17 Pantoprazole Sodium [Protonix -] 40 mg PO BID #30 tab 05/14/17 Naproxen [Naprosyn] 500 mg PO BID #60 tablet 12/19/17 Becaplermin [Regranex] 15 gm TP DAILY #1 gel..gram. 03/19/19 Acetaminophen [Tylenol -] 1,000 mg PO Q6H #30 tablet 05/18/19 Amoxicillin/Potassium Clav [Amox-Clav 875-125 mg Tablet] 1 each PO BID #20 tablet 07/06/19 Physical Exam-Neuro Vital Signs: Vital Signs Temperature 98.1 F 07/07/19 15:15 Pulse Rate 92 H 07/07/19 15:15 Respiratory Rate 14 07/07/19 15:15 Blood Pressure 166/82 07/07/19 15:15 O2 Sat by Pulse Oximetry (%) 98 07/07/19 17:53 Labs: CBC, BMP 07/07/19 16:43 07/07/19 16:43 Assessment/Plan cc Right arm and leg weakness HPI 58 year old male history of HTN,HLD,DM with left leg pain ( ambulate with cane). Patient was brought to hospital for sudden onset right arm, leg weakness and difficulty talking. Stroke code was called and patient was last known well 11.00. Patient was seen in ed at 3.50 pm at ed . Patient says his symptoms were improving and his ct scan wa snormal. He also have mild right headache. His nih score was 2 at bedside. Patient denies any visual field defect, able to repeat and able to understand. there was no weakness of arm. He was not taking aspirin regularly, he did not take lipitor at home. He denies taking anticoagulation at home. NIH Stroke Scale Score: 2 PMH as above Allergies Allergy/AdvReac Type Severity Reaction Status Date / Time No Known Allergies Allergy Verified 05/18/19 12:42 Home Medications: Aspirin Coated [Ecotrin -] 81 mg PO DAILY #30 tablet.ec 04/25/16 Insulin (Levemir) [Levemir Vial] 30 units SQ BID 04/28/16 Amlodipine Besylate [Norvasc -] 5 mg PO DAILY 02/15/17 Hydrochlorothiazide [Hctz -] 25 mg PO BID 02/15/17 Metoprolol Succinate [Toprol XL -] 25 mg PO DAILY 02/15/17 metFORMIN HCL [Glucophage -] 500 mg PO BID 02/15/17 Pantoprazole Sodium [Protonix -] 40 mg PO BID #30 tab 05/14/17 Naproxen [Naprosyn] 500 mg PO BID #60 tablet 12/19/17 Becaplermin [Regranex] 15 gm TP DAILY #1 gel..gram. 03/19/19 Acetaminophen [Tylenol -] 1,000 mg PO Q6H #30 tablet 05/18/19 Amoxicillin/Potassium Clav [Amox-Clav 875-125 mg Tablet] 1 each PO BID #20 tablet 07/06/19 ROS,FH,SH reviewed in chart NEUROLOGICAL EXAMINATION Alert oriented x 3, speech is normal, neck is supple eomi, pupils reactive , speech is dysarthric , moving all extremity there is mild right leg weakness sensation is normal ct head is unremarkable Assessment/Plan HPI 58 year old male history of HTN,HLD,DM with left leg pain ( ambulate with cane). Patient was brought to hospital for sudden onset right arm , leg weakness and difficulty talking. nih score 2, symptoms resolving. Ct head unremarkable, able to swallow. most likley left mca lacunar syndrome. Plan: continue aspirin and statin - carotid ultrasound, mri ofbrain - pt , dvt prophylaxis, speech therarpy - stroke educaiton Thanking you so much Tony Noland MD
[2019-07-07 21:48] VITALS: BMI 39.5
[2019-07-07 22:13] LABS: INR 1.03 (0.83-1.09); PROTHROMBIN TIME (PATIENT) 12.2 SEC (9.7-13.0)
[2019-07-07 22:16] LABS: ACTIVATED PTT 36.3 SECONDS (25.2-36.5)
--- NOTE | 2019-07-07 22:17 | HP ---
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: Peripheral Neuropathy Cardiovascular: Yes: HTN, Hyperlipdemia Renal/: Yes: Renal Inusuff Infectious Disease: Yes: Other (LLE osteo on MRI here 06/2015) Endocrine: Yes: Diabetes Mellitus (on Victoza) - Past Surgical History Past Surgical History: Yes: Hernia Repair (left inguinal) - Smoking History Smoking history: Unknown if ever smoked Have you smoked in the past 12 months: No If you are a former smoker, when did you quit?: 1976 - Alcohol/Substance Use Hx Alcohol Use: No History of Substance Use: reports: None - Social History ADL: Independent History of Recent Travel: No Home Medications - Allergies Allergies/Adverse Reactions: Allergies Allergy/AdvReac Type Severity Reaction Status Date / Time No Known Allergies Allergy Verified 05/18/19 12:42 - Home Medications Home Medications: Ambulatory Orders Aspirin Coated [Ecotrin -] 81 mg PO DAILY #30 tablet.ec 04/25/16 Insulin (Levemir) [Levemir Vial] 30 units SQ BID 04/28/16 Amlodipine Besylate [Norvasc -] 5 mg PO DAILY 02/15/17 Hydrochlorothiazide [Hctz -] 25 mg PO BID 02/15/17 Metoprolol Succinate [Toprol XL -] 25 mg PO DAILY 02/15/17 metFORMIN HCL [Glucophage -] 500 mg PO BID 02/15/17 Pantoprazole Sodium [Protonix -] 40 mg PO BID #30 tab 05/14/17 Naproxen [Naprosyn] 500 mg PO BID #60 tablet 12/19/17 Becaplermin [Regranex] 15 gm TP DAILY #1 gel..gram. 03/19/19 Acetaminophen [Tylenol -] 1,000 mg PO Q6H #30 tablet 05/18/19 Amoxicillin/Potassium Clav [Amox-Clav 875-125 mg Tablet] 1 each PO BID #20 tablet 07/06/19 Physical Examination Vital Signs: Vital Signs Temperature 98.5 F 07/07/19 21:00 Pulse Rate 78 07/07/19 21:00 Respiratory Rate 20 07/07/19 21:00 Blood Pressure 152/80 07/07/19 21:00 O2 Sat by Pulse Oximetry (%) 98 07/07/19 21:00 Labs: CBC, BMP 07/07/19 16:43 07/07/19 16:43
[2019-07-07] MEDS: metFORMIN HCL 500 MG TABLET (FP) PO SCH (22:50)
[2019-07-08] MEDS: INSULIN SLIDING SCALE (NOVOLOG) 1 VIAL SQ SCH ×3 (06:29→16:59)
[2019-07-08] MEDS: metFORMIN HCL 500 MG TABLET (FP) PO SCH ×2 (06:31→17:26)
[2019-07-08 06:54] LABS: BASO % 0.9 % (0-2.0); EOS % 1.5 % (0-4.5); HEMATOCRIT 32.9 % (35.4-49); HEMOGLOBIN 10.4 GM/dL (11.7-16.9); LYMPH % 30.5 % (8-40); MCH 22.5 pg (25.7-33.7); MCHC 31.5 g/dl (32.0-35.9); MEAN CELL VOLUME 71.2 fl (80-96); MEAN PLT VOLUME 8.1 fl (7.5-11.1); MONO % 6.6 % (3.8-10.2); NEUT % 60.5 % (42.8-82.8); PLATELET COUNT 354 K/MM3 (134-434); RBC 4.62 M/mm3 (4.00-5.60); RDW 16.8 % (11.9-15.9); WHITE BLOOD COUNT 6.5 K/mm3 (4.0-10.0)
[2019-07-08] MEDS ORDERED: INSULIN (LEVEMIR) 100 UNITS/ML UNITS SQ SCH (07:00)
[2019-07-08 07:22] LABS: ALBUMIN 3.2 g/dl (3.4-5.0); BILIRUBIN,TOTAL 0.9 mg/dL (0.2-1); BLOOD UREA NITROGEN 20.6 mg/dL (7-18); CALCIUM 8.8 mg/dL (8.5-10.1); CREATININE 0.9 mg/dL (0.55-1.3); POTASSIUM 3.8 mmol/L (3.5-5.1); TOT PROT 6.7 g/dl (6.4-8.2)
--- NOTE | 2019-07-08 09:20 | CON.CARD ---
Consult Consult Specialty:: Cardiology - History of Present Illness History of Present Illness: 58-year-old male with history of hypertension, high cholesterol, diabetes brought in by son after referred by PCP for acute weakness. Patient was in usual state of health, ambulating with cane secondary to left foot disease, went to scheduled cardiology appointment and while walking to the office from the parking lot felt sudden onset of right-sided weakness with drifting to the right while walking. Reports some right leg weakness but denies any other symptoms, slight right-sided headache. His biological engineer referred patient to his PCP, Dr. Oh, who referred him to the emergency department. Upon arrival, code arauz was activated from triage based on right-sided headache with right-sided weakness, stroke protocol was initiated. Patient denies any fall or head injury, denies any chest pain or palpitations, reports symptoms have slightly improved. 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: Yes: Peripheral Neuropathy Cardio/Vascular: Yes: HTN, Hyperlipdemia Renal/: Yes: Renal Inusuff Infectious Disease: Yes: Other (LLE osteo on MRI here 06/2015) Endocrine: Yes: Diabetes Mellitus (on Victoza) - Past Surgical History Past Surgical History: Yes: Hernia Repair (left inguinal) - Alcohol/Substance Use Hx Alcohol Use: No History of Substance Use: reports: None - Smoking History Smoking history: Unknown if ever smoked Have you smoked in the past 12 months: No If you are a former smoker, when did you quit?: 1976 - Social History ADL: Independent History of Recent Travel: No Home Medications - Allergies Allergies/Adverse Reactions: Allergies Allergy/AdvReac Type Severity Reaction Status Date / Time No Known Allergies Allergy Verified 05/18/19 12:42 - Home Medications Home Medications: Ambulatory Orders Aspirin Coated [Ecotrin -] 81 mg PO DAILY #30 tablet.ec 04/25/16 Insulin (Levemir) [Levemir Vial] 30 units SQ BID 04/28/16 Amlodipine Besylate [Norvasc -] 5 mg PO DAILY 02/15/17 Hydrochlorothiazide [Hctz -] 25 mg PO BID 02/15/17 Metoprolol Succinate [Toprol XL -] 25 mg PO DAILY 02/15/17 metFORMIN HCL [Glucophage -] 500 mg PO BID 02/15/17 Pantoprazole Sodium [Protonix -] 40 mg PO BID #30 tab 05/14/17 Naproxen [Naprosyn] 500 mg PO BID #60 tablet 12/19/17 Becaplermin [Regranex] 15 gm TP DAILY #1 gel..gram. 03/19/19 Acetaminophen [Tylenol -] 1,000 mg PO Q6H #30 tablet 05/18/19 Amoxicillin/Potassium Clav [Amox-Clav 875-125 mg Tablet] 1 each PO BID #20 tablet 07/06/19 Review of Systems - Review of Systems Constitutional: reports: No Symptoms Eyes: reports: No Symptoms HENT: reports: No Symptoms Neck: reports: No Symptoms Cardiovascular: reports: No Symptoms Respiratory: reports: No Symptoms Gastrointestinal: reports: No Symptoms Genitourinary: reports: No Symptoms Breasts: reports: No Symptoms Reported Musculoskeletal: reports: No Symptoms Integumentary: reports: No Symptoms Neurological: reports: Weakness Endocrine: reports: No Symptoms Hematology/Lymphatic: reports: No Symptoms Psychiatric: reports: No Symptoms Vital Signs: Vital Signs Temperature 98.2 F 07/08/19 05:24 Pulse Rate 78 07/08/19 05:24 Respiratory Rate 20 07/08/19 05:24 Blood Pressure 126/67 07/08/19 05:24 O2 Sat by Pulse Oximetry (%) 98 07/07/19 21:00 Constitutional: Yes: Well Nourished, No Distress, Calm Eyes: Yes: WNL, Conjunctiva Clear, EOM Intact HENT: Yes: WNL, Atraumatic, Normocephalic Neck: Yes: WNL, Supple, Trachea Midline Respiratory: Yes: WNL, Regular, CTA Bilaterally Gastrointestinal: Yes: WNL, Normal Bowel Sounds Renal/: Yes: WNL Cardiovascular: Yes: WNL, Regular Rate and Rhythm Musculoskeletal: Yes: WNL Extremities: Yes: WNL Integumentary: Yes: WNL Neurological: Yes: WNL, Alert, Oriented ...Motor Strength: WNL Psychiatric: Yes: WNL, Alert, Oriented - Other Data Labs, Other Data: CBC, BMP 07/08/19 05:35 07/08/19 05:35 INR, PTT INR 1.03 (0.83-1.09) 07/07/19 21:30 Troponin, BNP 07/07/19 16:43 Troponin I < 0.02 Troponin, BNP 07/07/19 16:43 Troponin I < 0.02 Imaging - Results Chest X-ray: Image Reviewed (plaque in the aortic knob no i/e) EKG: Image Reviewed (sr wnl) Problem List - Problems (1) Cerebrovascular accident (CVA) Code(s): I63.9 - CEREBRAL INFARCTION, UNSPECIFIED Qualifiers: CVA mechanism: unspecified Qualified Code(s): I63.9 - Cerebral infarction, unspecified (2) Weakness Code(s): R53.1 - WEAKNESS (3) Acute on chronic diastolic (congestive) heart failure Code(s): I50.33 - ACUTE ON CHRONIC DIASTOLIC (CONGESTIVE) HEART FAILURE (4) Anemia Code(s): D64.9 - ANEMIA, UNSPECIFIED (5) CKD (chronic kidney disease) Code(s): N18.9 - CHRONIC KIDNEY DISEASE, UNSPECIFIED (6) Cellulitis Code(s): L03.90 - CELLULITIS, UNSPECIFIED Qualifiers: Site of cellulitis: extremity Site of cellulitis of extremity: lower extremity Laterality: left Qualified Code(s): L03.116 - Cellulitis of left lower limb (7) Cellulitis of foot, left Code(s): L03.116 - CELLULITIS OF LEFT LOWER LIMB (8) Cellulitis of left anterior lower leg Code(s): L03.116 - CELLULITIS OF LEFT LOWER LIMB (9) Cellulitis of right leg Code(s): L03.115 - CELLULITIS OF RIGHT LOWER LIMB (10) Chronic CHF Code(s): I50.9 - HEART FAILURE, UNSPECIFIED (11) Diabetes Code(s): E11.9 - TYPE 2 DIABETES MELLITUS WITHOUT COMPLICATIONS Qualifiers: Diabetes mellitus type: other specified (including LASHAY) Diabetes mellitus manager long term care insulin use: unspecified manager long term care insulin use status Diabetes mellitus complication status: with hyperglycemia Qualified Code(s): E13.65 - Other specified diabetes mellitus with hyperglycemia (12) Diabetic foot ulcer Code(s): E11.621 - TYPE 2 DIABETES MELLITUS WITH FOOT ULCER; L97.509 - NON- PRESSURE CHRONIC ULCER OTH PRT UNSP FOOT W UNSP SEVERITY (13) Diabetic infection of left foot Code(s): E11.69 - TYPE 2 DIABETES MELLITUS WITH OTHER SPECIFIED COMPLICATION; L08.9 - LOCAL INFECTION OF THE SKIN AND SUBCUTANEOUS TISSUE, UNSP (14) Edema of left lower extremity Code(s): R60.0 - LOCALIZED EDEMA (15) Failed skin graft Code(s): T86.821 - SKIN GRAFT (ALLOGRAFT) (AUTOGRAFT) FAILURE (16) Gangrene Code(s): I96 - GANGRENE, NOT ELSEWHERE CLASSIFIED (17) Gangrene of toe of left foot Code(s): I96 - GANGRENE, NOT ELSEWHERE CLASSIFIED (18) HTN (hypertension) Code(s): I10 - ESSENTIAL (PRIMARY) HYPERTENSION (19) History of - hypertension Code(s): Z86.79 - PERSONAL HISTORY OF OTHER DISEASES OF THE CIRCULATORY SYSTEM (20) Leg edema, right Code(s): R60.0 - LOCALIZED EDEMA (21) Morbid obesity Code(s): E66.01 - MORBID (SEVERE) OBESITY DUE TO EXCESS CALORIES (22) Osteomyelitis Code(s): M86.9 - OSTEOMYELITIS, UNSPECIFIED Qualifiers: (23) Peripheral edema Code(s): R60.9 - EDEMA, UNSPECIFIED (24) Peripheral neuropathy Code(s): G62.9 - POLYNEUROPATHY, UNSPECIFIED (25) Phlebitis Code(s): I80.9 - PHLEBITIS AND THROMBOPHLEBITIS OF UNSPECIFIED SITE (26) Postoperative hemorrhage from incision Code(s): IYQ0735 - (27) Sepsis Code(s): A41.9 - SEPSIS, UNSPECIFIED ORGANISM Qualifiers: Sepsis type: sepsis due to unspecified organism Qualified Code(s): A41.9 - Sepsis, unspecified organism (28) Type 2 diabetes mellitus with foot ulcer Code(s): E11.621 - TYPE 2 DIABETES MELLITUS WITH FOOT ULCER; L97.509 - NON- PRESSURE CHRONIC ULCER OT PRT UNSP FOOT W UNSP SEVERITY Qualifiers: Qualified Code(s): E11.621 - Type 2 diabetes mellitus with foot ulcer; L97.509 - Non-pressure chronic ulcer of other part of unspecified foot with unspecified severity; L97.509 - Non-pressure chronic ulcer of other part of unspecified foot with unspecified severity; L97.509 - Non-pressure chronic ulcer of other part of unspecified foot with unspecified severity; L97.509 - Non -pressure chronic ulcer of other part of unspecified foot with unspecified severity Assessment/Plan hypertension, high cholesterol, diabetes brought in by son after referred by PCP for acute weakness. MRI no CVA EKG telemetry normal echo TDS thickened AV and MV nl EF Plan BP/lipids/DM control cont ASA Cardiac clark stable. Man[place]et as per neuro Patient has outpatient cardiologists and states he had "full workup and keeps routine f/u)
[2019-07-08] MEDS ORDERED: metoPROLOL SUCCINATE 25 MG TAB.SR.24H (FP) PO SCH (10:00)
[2019-07-08] MEDS ORDERED: ASPIRIN COATED 81 MG TABLET.EC PO SCH (10:00)
[2019-07-08] MEDS ORDERED: PANTOPRAZOLE 40 MG TABLET (FP) PO SCH (10:00)
[2019-07-08] MEDS ORDERED: amLODIPine BESYLATE 5 MG TABLET (FP) PO SCH (10:00)
[2019-07-08] MEDS ORDERED: HYDROCHLOROTHIAZIDE 25 MG TABLET (FP) PO SCH (10:00)
[2019-07-08] MEDS ORDERED: HEPARIN NA (PORCINE) 5,000 UNITS/ML 1ML VIAL SQ SCH (10:00)
--- NOTE | 2019-07-08 10:49 | EKG ---
Test Reason : Blood Pressure : / mmHG Vent. Rate : 087 BPM Atrial Rate : 087 BPM P-R Int : 156 ms QRS Dur : 066 ms QT Int : 352 ms P-R-T Axes : 061 043 071 degrees QTc Int : 423 ms NORMAL SINUS RHYTHM NORMAL ECG WHEN COMPARED WITH ECG OF 25-FEB-2019 22:07, NO SIGNIFICANT CHANGE WAS FOUND Confirmed by BRIAN DOTSON MD ([id number]) on 07/08/2019 10:48:38 AM Referred By: Confirmed By:BRIAN DOTSON MD
--- NOTE | 2019-07-08 11:06 | ECHO ---
Name: CLEMENTE WATSON Exam:Adult Echocardiogram Study Date: 07/08/2019 08:24 AM Age: 58 yrs Reason For Study: CVA Height: 68 in Weight: 260 lb BSA: 2.3 m2 MMode/2D Measurements & Calculations IVSd: 1.3 cm Ao root diam: 3.1 cm LVIDd: 3.8 cm LA dimension: 3.2 cm LVIDs: 2.6 cm LVPWd: 1.1 cm LVPWs: 1.6 cm EDV(Teich): 61.2 ml ESV(Teich): 23.5 ml LVOT diam: 2.3 cm Doppler Measurements & Calculations MV E max fermin: 67.1 cm/sec Ao V2 max: 133.0 cm/sec MV A max fermin: 87.9 cm/sec Ao max P.1 mmHg MV E/A: 0.76 MV dec time: 0.19 sec SARINA(V,D): 3.1 cm2 LV V1 max P.1 mmHg PA V2 max: 97.7 cm/sec LV V1 max: 100.7 cm/sec PA max P.8 mmHg Med Peak E' Fermin: 4.9 cm/sec Med E/e': 13.6 Lat Peak E' Fermin: 8.2 cm/sec Lat E/e': 8.2 Procedure A two-dimensional transthoracic echocardiogram with color flow and Doppler was performed. The study w as technically difficult with many images being suboptimal in quality. Left Ventricle The left ventricular size, thickness and function are normal. The left ventricular ejection fraction is normal. E/A reversal consistent with but not diagnostic of poor LV compliance. The left ventricular w all motion is normal. Right Ventricle The right ventricle is normal in size and function. Atria Normal left and right atrial size and function. Mitral Valve There is moderate mitral valve thickening. There is mild to moderate mitral annular calcification. Th ere is no mitral valve stenosis. There is trace to mild mitral regurgitation. Tricuspid Valve The tricuspid valve is not well visualized. There is no tricuspid stenosis. There was insufficient TR detected to calculate RV systolic pressure. Aortic Valve The aortic valve is not well visualized. There is moderate aortic valve thickening. There is moderate aortic sclerosis.;. No hemodynamically significant valvular aortic stenosis. No aortic regurgitation is pres ent. Pulmonic Valve The pulmonic valve is not well visualized. Great Vessels The aortic root is normal size. Pericardium/Pleura There is no pericardial effusion. Interpretation Summary The left ventricular size, thickness and function are normal The left ventricular ejection fraction is normal. The left ventricular wall motion is normal. There is moderate mitral valve thickening. There is mild to moderate mitral annular calcification. The study was technically difficult with many images being suboptimal in quality. The aortic valve is not well visualized. There is moderate aortic valve thickening. There is moderate aortic sclerosis.; E/A reversal consistent with but not diagnostic of poor LV compliance There is trace to mild mitral regurgitation. There was insufficient TR detected to calculate RV systolic pressure. MD Anibal Chisholm 07/08/2019 11:05 AM
--- NOTE | 2019-07-08 11:39 | CONSULT ---
Admitting History and Physical - Primary Care Physician PCP: Theresa Oh - Admission History of Present Illness: Per EMR- 58 year old male history of HTN,HLD,DM with left leg pain ( ambulate with cane) . Patient was brought to hospital for sudden onset right arm, leg weakness and slurred speech, that pt reports lasted 6 hours. Symptoms have resolved. 07/08/19 10:57 Breakfast 100% Laboratory Tests 07/08/19 05:[address] head/MRI (-). This is my first consult with this pt. 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 Cardiovascular: Yes: HTN, Hyperlipdemia Renal/: Yes: Renal Inusuff Infectious Disease: Yes: Other (LLE osteo on MRI here 06/2015) Endocrine: Yes: Diabetes Mellitus (on Victoza) - Past Surgical History Past Surgical History: Yes: Hernia Repair (left inguinal) - Smoking History Smoking history: Unknown if ever smoked Have you smoked in the past 12 months: No If you are a former smoker, when did you quit?: 1976 - Alcohol/Substance Use Hx Alcohol Use: No History of Substance Use: reports: None - Social History ADL: Independent History of Recent Travel: No History - Admission Reason For Visit: CVA - Diagnostics X-ray: Report Reviewed CT Scan: Report Reviewed MRI: Report Reviewed - General Mental Status: Alert and Oriented, Awake and Alert, Able to Follow Commands Attention: Intact Ability to Follow Directions: Excellent Head/Neck Control: WFL - Hearing Hearing: Normal Speech Evaluation - Communication Primary Language: GERMAN Communication: Yes: Within Normal Limits Oral Expression Ability: Yes: No Impairment - Speech Production Able to Make Needs Known: Yes: WNL Intelligibility: Yes: WNL - Speech Characteristics Voice Loudness: Normal Voice Pitch: Yes: Normal Voice Phonatory-based Quality: Yes: Normal Speech Pattern: Normal Nasal Resonance: Normal Articulation: Yes: Precise Rate of Speech: Intact - Language/Auditory Comprehension Follows: Yes: 2 Stage Simple Commands Observation: Able to respond to yes/no queries: Yes, Yes/No Confusion: No, Comprehends Conversational Speech: Yes - Language/Verbal Expression Able to Respond to Simple Queries: Yes: WNL Able to Communicate Wants and Needs: Yes: WNL Functional Communication Status: Yes: WNL - Memory/Perception 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 helper Memory: Yes: WNL Short Term Memory: Yes: WNL - Swallow Evaluation/Bedside Assessment Current Nutritional Intake: Regular, Thin Liquids Oral Secretions: Yes: WFL Dentition: Yes: Adequate (underbite) Facial Symmetry at Rest: Symmetrical Facial Symmetry on Retraction: Symmetrical Sensation: Normal Against Resistance Opening: Normal Against Resistance Closing: Normal Pucker Lips: Normal Smile: Normal Lingual Movement: Normal, Symmetric Lingual Speed of Movement: Normal Lingual Movement Strgth Against Opposition: Normal Lingual Movement Characteristics: Normal Laryngeal Elevation: WFL Laryngeal Movement: Able to Palpate Rate of Intake: WFL Bolus Size: WFL Labial Seal: WFL Chewing: WFL Oral Prep Time: WFL A-P Transit: WFL Pocketing: None Timing of Swallow: WFL Coughing/Throat Clear: No ((-) 3 oz water) Recommendations - Speech Evaluation, Impression/Plan Impression: Speech,language, cognition, swallowing intact - Dysphagia Impressions/Plan Swallowing Skills: WF Dysphagia Impressions: No Impairment *Silent aspiration: cannot be R/O at bedside - Recommendations Diet Consistency: Regular Medication Administration: Whole with water Liquids: Thin Liquids
[2019-07-08 14:04] VITALS: BP 137/59; PULSE 80; TEMP 98.5
[2019-07-08] MEDS: SODIUM CHLORIDE 1,000 ML IV SCH (15:30)
[2019-07-08] MEDS ORDERED: ACETAMINOPHEN 325 MG TABLET (FP) ONE (17:11)
[2019-07-08] MEDS ORDERED: ACETAMINOPHEN 325 MG TABLET (FP) PO ONE (17:30)
--- NOTE | 2019-07-08 18:20 | PN ---
Progress Note (short form) - Note Progress Note: 58 year old male history of HTN,HLD,DM with left leg pain ( ambulate with cane) . Patient was brought to hospital for sudden onset right arm, leg weakness and difficulty talking. Stroke code was called and patient was last known well 11.00. Patient was seen in ed at 3.50 pm at ed . Patient says his symptoms were improving and his ct scan wa snormal. He also have mild right headache. His nih score was 2 at bedside. Patient denies any visual field defect, able to repeat and able to understand. there was no weakness of arm. He was not taking aspirin regularly, he did not take lipitor at home. his symptoms has improved . mri of brain is unrmearkable, and carotid ultrasound is normal. NEUROLOGICAL EXAMINATION Alert oriented x 3, speech is normal, neck is supple eomi, pupils reactive , speech is dysarthric he is able to walk, no motor weakness sensation is normal ct head is unremarkable mri of brain is normal, carotid ultraosund is normal Assessment/Plan HPI 58 year old male history of HTN,HLD,DM with left leg pain ( ambulate with cane). Patient was brought to hospital for sudden onset right arm , leg weakness and difficulty talking. nih score 2, symptoms resolved, mri of brain, carotid ultrasound is normal. Most likley patient has tia Plan: continue aspirin and would add lipitor - carotid ultrasound, mri ofbrain was normal - pt , dvt prophylaxis, speech therarpy - stroke educaiton follow up outpatient Thanking you so much Tony Noland MD
[2019-07-08] MEDS ORDERED: ATORVASTATIN CA 20 MG TABLET (FP) PO SCH (22:00)
== END 2019-07-08 19:19 | disposition home health service (06) ==
LOC: JER 15:12 → UNDOADMOB 16:39 → INTOOBSV 16:39 → JERBED 16:39 → J4W 18:40 → JERBED 07-08 14:06 → J4W 07-08 14:06
PROVIDERS: ADMIT Internal Medicine; ATTEND Internal Medicine
PROC: 3E013VG Introduction of Insulin into Subcutaneous Tissue, Percutaneous Approach (ICD-10-PCS; principal; 2019-07-08)
PROC: 3E023GC Introduction of Other Therapeutic Substance into Muscle, Percutaneous Approach (ICD-10-PCS; 2019-07-08)
DX: I63.9 Cerebral infarction, unspecified (principal); R53.1 Weakness; I25.10 Atherosclerotic heart disease of native coronary artery without angina pectoris; I13.0 Hypertensive heart and chronic kidney disease with heart failure and stage 1 through stage 4 chronic kidney disease, or unspecified chronic kidney disease; N18.9 Chronic kidney disease, unspecified; I50.33 Acute on chronic diastolic (congestive) heart failure; E11.621 Type 2 diabetes mellitus with foot ulcer; E11.69 Type 2 diabetes mellitus with other specified complication; L08.9 Local infection of the skin and subcutaneous tissue, unspecified; Z79.4 Long term (current) use of insulin; E78.00 Pure hypercholesterolemia, unspecified; G62.9 Polyneuropathy, unspecified; M79.605 Pain in left leg; Z89.422 Acquired absence of other left toe(s); T86.821 Skin graft (allograft) (autograft) failure; E66.01 Morbid (severe) obesity due to excess calories; Z68.39 Body mass index [BMI] 39.0-39.9, adult; L03.116 Cellulitis of left lower limb; L03.115 Cellulitis of right lower limb; Z99.89 Dependence on other enabling machines and devices; Z86.79 Personal history of other diseases of the circulatory system; Z87.19 Personal history of other diseases of the digestive system
CPT/HCPCS: 36415; 70450-TC; 70551-TC; 71045-TC-FY; 80053; 81003; 82465; 82550; 82962; 83718; 83721; 84478; 84484; 85025; 85610; 85730; 86850; 86900; 86901; 93005; 93010; 93306-TC; 93880-TC; 96372; 97116-GP; 97161-GP; 99285-25; G0378; J1644; J7030

== ENCOUNTER 2020-08-01 05:00 | Day surgery (SDC) | payer OTHER ==
[2020-07-27 09:18] VITALS: BMI 38.7
[2020-08-01 09:42] VITALS: TEMP 97.8
[2020-08-01 10:27] VITALS: BP 127/69; PULSE 74
== END 2020-08-01 10:56 | disposition home or self-care (01) ==
LOC: JASU-ENDO 05:00
PROVIDERS: ATTEND Internal Medicine Gastroenterology
PROC: 0DBK8ZX Excision of Ascending Colon, Via Natural or Artificial Opening Endoscopic, Diagnostic (ICD-10-PCS; 2020-08-01)
PROC: 0DBP8ZX Excision of Rectum, Via Natural or Artificial Opening Endoscopic, Diagnostic (ICD-10-PCS; 2020-08-01)
PROC: 0DBL8ZX Excision of Transverse Colon, Via Natural or Artificial Opening Endoscopic, Diagnostic (ICD-10-PCS; principal; 2020-08-01 08:30)
DX: Z09 Encounter for follow-up examination after completed treatment for conditions other than malignant neoplasm (principal); Z86.010 Personal history of colon polyps; D12.2 Benign neoplasm of ascending colon; D12.3 Benign neoplasm of transverse colon; K62.1 Rectal polyp; E11.9 Type 2 diabetes mellitus without complications; I10 Essential (primary) hypertension; E78.5 Hyperlipidemia, unspecified; E66.01 Morbid (severe) obesity due to excess calories; Z68.38 Body mass index [BMI] 38.0-38.9, adult; N40.0 Benign prostatic hyperplasia without lower urinary tract symptoms; Z79.84 Long term (current) use of oral hypoglycemic drugs
CPT/HCPCS: 88305-TC

== ENCOUNTER 2021-02-01 17:48 | Observation (INO) | payer OTHER ==
[2021-02-01] MEDS ORDERED: DIPHTH,PERTUSS(ACELL),TET 0.5 ML DISP.SYRIN IM ONE ×2 (18:36→18:37)
[2021-02-01] MEDS ORDERED: SODIUM CHLORIDE 1,000 ML IV STA (20:01)
[2021-02-01] MEDS ORDERED: VANCOMYCIN 1 GRAM (PRE-DOCKED) 1,000 MG/250 ML BAG IVPB ONE (23:28)
[2021-02-01] MEDS: VANCOMYCIN 1 GM in D5W (PRE-DOCKED) 1,000 MG/250 ML IVPB SCH (23:40)
[2021-02-02 00:55] LABS: BASO % 0.6 % (0-2.0); EOS % 0.9 % (0-4.5); HEMATOCRIT 34.5 % (35.4-49); HEMOGLOBIN 11.1 GM/dL (11.7-16.9); LYMPH % 28.7 % (8-40); MCH 27.3 pg (25.7-33.7); MCHC 32.2 g/dl (32.0-35.9); MEAN CELL VOLUME 84.9 fl (80-96); MEAN PLT VOLUME 8.1 fl (7.5-11.1); MONO % 6.7 % (3.8-10.2); NEUT % 63.1 % (42.8-82.8); PLATELET COUNT 280 10^3/uL (134-434); RBC 4.07 M/mm3 (4.00-5.60); RDW 15.6 % (11.9-15.9); WHITE BLOOD COUNT 8.1 K/mm3 (4.0-10.0)
[2021-02-02 01:05] LABS: INR 0.97 (0.83-1.09); PROTHROMBIN TIME (PATIENT) 11.9 SEC (9.7-13.0)
[2021-02-02 01:17] LABS: ALBUMIN 3.2 g/dl (3.4-5.0); BLOOD UREA NITROGEN 21.3 mg/dL (7-18); CALCIUM 7.8 mg/dL (8.5-10.1)
[2021-02-02 01:20] LABS: CREATININE 0.9 mg/dL (0.55-1.3)
[2021-02-02 01:22] LABS: BILIRUBIN,TOTAL 0.4 mg/dL (0.2-1); TOT PROT 6.5 g/dl (6.4-8.2)
[2021-02-02] MEDS ORDERED: PIPERACILLIN/TAZOB 3.375 GM 3.375 GM/50 ML BAG IVPB ONE ×2 (03:02→12:58)
[2021-02-02] MEDS: PIPERACILLIN/TAZOB 3.375 GM 3.375 GM in DEXTROSE 5%-WATER - 50 ML IVPB SCH ×3 (03:12→17:47)
[2021-02-02 06:45] LABS: BASO % 0.8 % (0-2.0); EOS % 1.4 % (0-4.5); HEMATOCRIT 32.6 % (35.4-49); HEMOGLOBIN 10.8 GM/dL (11.7-16.9); MCHC 33.3 g/dl (32.0-35.9); MEAN CELL VOLUME 81.3 fl (80-96); MEAN PLT VOLUME 8.2 fl (7.5-11.1); NEUT % 60.8 % (42.8-82.8); PLATELET COUNT 301 10^3/uL (134-434); RBC 4.01 M/mm3 (4.00-5.60); RDW 14.9 % (11.9-15.9); WHITE BLOOD COUNT 8.2 K/mm3 (4.0-10.0)
[2021-02-02] MEDS: metFORMIN HCL 500 MG TABLET (FP) PO SCH ×2 (07:00→16:51)
[2021-02-02 07:07] LABS: ALBUMIN 3.2 g/dl (3.4-5.0); BLOOD UREA NITROGEN 17.8 mg/dL (7-18); CALCIUM 7.8 mg/dL (8.5-10.1)
[2021-02-02 07:08] LABS: BILIRUBIN,TOTAL 0.8 mg/dL (0.2-1)
[2021-02-02 07:10] LABS: CREATININE 0.8 mg/dL (0.55-1.3); TOT PROT 6.5 g/dl (6.4-8.2)
[2021-02-02] MEDS ORDERED: ACETAMINOPHEN 325 MG TABLET (FP) ONE (07:27)
[2021-02-02] MEDS ORDERED: metFORMIN HCL 500 MG TABLET (FP) ONE (07:28)
[2021-02-02] MEDS ORDERED: TAMSULOSIN HCL 0.4 MG CAP ONE (07:28)
[2021-02-02] MEDS: INSULIN SLIDING SCALE (NOVOLOG) 1 VIAL SQ SCH ×4 (08:21→21:43)
[2021-02-02] MEDS: TAMSULOSIN HCL 0.4 MG CAP PO SCH (08:21)
[2021-02-02] MEDS: metoPROLOL SUCCINATE 25 MG TAB.SR.24H (FP) PO SCH (11:00)
[2021-02-02] MEDS: ASPIRIN COATED 81 MG TABLET.EC PO SCH (11:00)
[2021-02-02] MEDS: amLODIPine BESYLATE 5 MG TABLET (FP) PO SCH (11:00)
[2021-02-02] MEDS: LOSARTAN POTASSIUM 50 MG TABLET PO SCH (11:00)
[2021-02-02] MEDS: ENOXAPARIN NA (PORCINE) 40 MG/0.4 ML DISP.SYRIN SQ SCH (11:00)
[2021-02-02] MEDS: FUROSEMIDE 40 MG TABLET (FP) PO SCH (11:00)
[2021-02-02] MEDS: VANCOMYCIN 1 GM in D5W (PRE-DOCKED) 1,000 MG/250 ML IVPB SCH (12:00)
[2021-02-02] MEDS ORDERED: LOSARTAN POTASSIUM 50 MG TABLET ONE (12:53)
[2021-02-02] MEDS ORDERED: FUROSEMIDE 40 MG TABLET (FP) ONE (12:55)
[2021-02-02] MEDS ORDERED: amLODIPine BESYLATE 5 MG TABLET (FP) ONE (12:56)
[2021-02-02] MEDS ORDERED: VANCOMYCIN 1 GRAM (PRE-DOCKED) 1,000 MG/250 ML BAG IVPB ONE (12:57)
[2021-02-02] MEDS ORDERED: ENOXAPARIN NA (PORCINE) 40 MG/0.4 ML DISP.SYRIN SQ ONE (12:57)
[2021-02-02] MEDS ORDERED: ASPIRIN 325 MG ENTERIC COATED TABLET (FP) ONE (12:57)
[2021-02-02 17:20] VITALS: BMI 39.9
[2021-02-02] MEDS ORDERED: PIPERACILLIN/TAZOBACTAM 3.375 GM VIAL IVPB ONE (17:44)
[2021-02-02] MEDS ORDERED: DEXTROSE 5%-WATER - 50 ML IVPB ONE (17:45)
[2021-02-02] MEDS: ATORVASTATIN CA 20 MG TABLET (FP) PO SCH (21:42)
[2021-02-02] MEDS: ACETAMINOPHEN 500 MG TABLET (FP) PO PRN (21:46)
[2021-02-02] MEDS ORDERED: VANCOMYCIN 1 GM in D5W (PRE-DOCKED) 1,000 MG/250 ML IVPB SCH (22:45)
[2021-02-03] MEDS ORDERED: DEXTROSE 5%-WATER - 50 ML IVPB ONE ×3 (00:55→17:42)
[2021-02-03] MEDS ORDERED: PIPERACILLIN/TAZOBACTAM 3.375 GM VIAL IVPB ONE ×3 (00:55→17:42)
[2021-02-03] MEDS: PIPERACILLIN/TAZOB 3.375 GM 3.375 GM in DEXTROSE 5%-WATER - 50 ML IVPB SCH ×5 (01:23→19:11)
[2021-02-03] MEDS: metFORMIN HCL 500 MG TABLET (FP) PO SCH ×2 (06:06→16:24)
[2021-02-03] MEDS: INSULIN SLIDING SCALE (NOVOLOG) 1 VIAL SQ SCH ×4 (06:07→22:35)
[2021-02-03] MEDS: metoPROLOL SUCCINATE 25 MG TAB.SR.24H (FP) PO SCH (10:28)
[2021-02-03] MEDS: LOSARTAN POTASSIUM 50 MG TABLET PO SCH (10:28)
[2021-02-03] MEDS: FUROSEMIDE 40 MG TABLET (FP) PO SCH (10:28)
[2021-02-03] MEDS: TAMSULOSIN HCL 0.4 MG CAP PO SCH (10:28)
[2021-02-03] MEDS: amLODIPine BESYLATE 5 MG TABLET (FP) PO SCH (10:28)
[2021-02-03] MEDS: ENOXAPARIN NA (PORCINE) 40 MG/0.4 ML DISP.SYRIN SQ SCH (10:29)
[2021-02-03] MEDS: ASPIRIN COATED 81 MG TABLET.EC PO SCH (10:29)
[2021-02-03] MEDS: DOXYCYCLINE HYCLATE 100 MG CAPSULE PO SCH ×2 (10:29→18:00)
[2021-02-03] MEDS: VANCOMYCIN 1 GM in D5W (PRE-DOCKED) 1,000 MG/250 ML IVPB SCH (19:10)
[2021-02-03] MEDS: ACETAMINOPHEN 500 MG TABLET (FP) PO PRN (22:34)
[2021-02-03] MEDS: ATORVASTATIN CA 20 MG TABLET (FP) PO SCH (22:34)
[2021-02-04] MEDS ORDERED: PIPERACILLIN/TAZOBACTAM 3.375 GM VIAL IVPB ONE ×3 (01:16→17:55)
[2021-02-04] MEDS ORDERED: DEXTROSE 5%-WATER - 50 ML IVPB ONE ×3 (01:16→17:55)
[2021-02-04] MEDS: PIPERACILLIN/TAZOB 3.375 GM 3.375 GM in DEXTROSE 5%-WATER - 50 ML IVPB SCH ×3 (01:23→18:06)
[2021-02-04] MEDS: COLLAGENASE CLOSTRIDIUM HIST. 30 GRAMS TUBE TP SCH ×2 (01:35→09:23)
[2021-02-04] MEDS: INSULIN SLIDING SCALE (NOVOLOG) 1 VIAL SQ SCH ×4 (06:57→22:34)
[2021-02-04] MEDS: metFORMIN HCL 500 MG TABLET (FP) PO SCH ×2 (06:58→17:20)
[2021-02-04] MEDS: TAMSULOSIN HCL 0.4 MG CAP PO SCH (08:42)
[2021-02-04] MEDS: FUROSEMIDE 40 MG TABLET (FP) PO SCH (09:22)
[2021-02-04] MEDS: DOXYCYCLINE HYCLATE 100 MG CAPSULE PO SCH ×2 (09:22→18:06)
[2021-02-04] MEDS: metoPROLOL SUCCINATE 25 MG TAB.SR.24H (FP) PO SCH (09:22)
[2021-02-04] MEDS: amLODIPine BESYLATE 5 MG TABLET (FP) PO SCH (09:22)
[2021-02-04] MEDS: LOSARTAN POTASSIUM 50 MG TABLET PO SCH (09:22)
[2021-02-04] MEDS: ENOXAPARIN NA (PORCINE) 40 MG/0.4 ML DISP.SYRIN SQ SCH (09:22)
[2021-02-04] MEDS: ASPIRIN COATED 81 MG TABLET.EC PO SCH (09:22)
[2021-02-04 10:20] LABS: BASO % 0.6 % (0-2.0); EOS % 1.8 % (0-4.5); HEMATOCRIT 35.9 % (35.4-49); HEMOGLOBIN 11.6 GM/dL (11.7-16.9); MCH 26.4 pg (25.7-33.7); MCHC 32.2 g/dl (32.0-35.9); MEAN CELL VOLUME 81.8 fl (80-96); MEAN PLT VOLUME 8.6 fl (7.5-11.1); NEUT % 64.6 % (42.8-82.8); PLATELET COUNT 345 10^3/uL (134-434); RBC 4.39 M/mm3 (4.00-5.60); WHITE BLOOD COUNT 8.1 K/mm3 (4.0-10.0)
[2021-02-04 10:24] LABS: ALBUMIN 3.6 g/dl (3.4-5.0)
[2021-02-04 10:27] LABS: CREATININE 0.9 mg/dL (0.55-1.3)
[2021-02-04 10:29] LABS: BILIRUBIN,TOTAL 1.1 mg/dL (0.2-1); TOT PROT 7.2 g/dl (6.4-8.2)
[2021-02-04 10:39] LABS: CALCIUM 9.2 mg/dL (8.5-10.1)
[2021-02-04] MEDS: ATORVASTATIN CA 20 MG TABLET (FP) PO SCH (22:33)
[2021-02-04] MEDS: ACETAMINOPHEN 500 MG TABLET (FP) PO PRN (22:33)
[2021-02-05] MEDS ORDERED: PIPERACILLIN/TAZOBACTAM 3.375 GM VIAL IVPB ONE ×2 (01:07→09:12)
[2021-02-05] MEDS ORDERED: DEXTROSE 5%-WATER - 50 ML IVPB ONE ×2 (01:07→09:12)
[2021-02-05] MEDS: PIPERACILLIN/TAZOB 3.375 GM 3.375 GM in DEXTROSE 5%-WATER - 50 ML IVPB SCH ×2 (01:35→09:30)
[2021-02-05] MEDS: INSULIN SLIDING SCALE (NOVOLOG) 1 VIAL SQ SCH (06:30)
[2021-02-05] MEDS: metFORMIN HCL 500 MG TABLET (FP) PO SCH (06:30)
[2021-02-05 07:07] VITALS: TEMP 98.3
[2021-02-05] MEDS: TAMSULOSIN HCL 0.4 MG CAP PO SCH (08:40)
[2021-02-05 08:54] LABS: BASO % 0.7 % (0-2.0); EOS % 1.6 % (0-4.5); HEMATOCRIT 34.8 % (35.4-49); HEMOGLOBIN 11.8 GM/dL (11.7-16.9); LYMPH % 30.2 % (8-40); MCH 27.5 pg (25.7-33.7); MEAN CELL VOLUME 80.7 fl (80-96); MEAN PLT VOLUME 8.1 fl (7.5-11.1); MONO % 6.1 % (3.8-10.2); NEUT % 61.4 % (42.8-82.8); PLATELET COUNT 320 10^3/uL (134-434); RBC 4.31 M/mm3 (4.00-5.60); RDW 14.8 % (11.9-15.9); WHITE BLOOD COUNT 8.6 K/mm3 (4.0-10.0)
[2021-02-05 09:16] LABS: BLOOD UREA NITROGEN 18.2 mg/dL (7-18)
[2021-02-05 09:29] VITALS: BP 162/75; PULSE 85
[2021-02-05] MEDS: FUROSEMIDE 40 MG TABLET (FP) PO SCH (09:29)
[2021-02-05] MEDS: metoPROLOL SUCCINATE 25 MG TAB.SR.24H (FP) PO SCH (09:29)
[2021-02-05] MEDS: ASPIRIN COATED 81 MG TABLET.EC PO SCH (09:29)
[2021-02-05] MEDS: DOXYCYCLINE HYCLATE 100 MG CAPSULE PO SCH (09:29)
[2021-02-05] MEDS: ENOXAPARIN NA (PORCINE) 40 MG/0.4 ML DISP.SYRIN SQ SCH (09:29)
[2021-02-05] MEDS: amLODIPine BESYLATE 5 MG TABLET (FP) PO SCH (09:29)
[2021-02-05] MEDS: LOSARTAN POTASSIUM 50 MG TABLET PO SCH (09:30)
[2021-02-05] MEDS: COLLAGENASE CLOSTRIDIUM HIST. 30 GRAMS TUBE TP SCH (09:30)
== END 2021-02-05 11:20 | disposition home or self-care (01) ==
LOC: JER 17:48 → JERBED 20:11 → INTOOBSV 20:11 → UNDOADMOB 20:11 → JERBED 22:29 → INTOOBSV 22:29 → UNDOADMOB 22:29 → JERBED 02-02 12:00 → UNDOADMOB 02-02 12:00 → JERBED 02-02 17:03 → J8W 02-02 17:03
PROVIDERS: ADMIT Internal Medicine; ATTEND Internal Medicine
PROC: 0HQNXZZ Repair Left Foot Skin, External Approach (ICD-10-PCS; principal; 2021-02-02)
PROC: 3E03329 Introduction of Other Anti-infective into Peripheral Vein, Percutaneous Approach (ICD-10-PCS; 2021-02-02)
PROC: 3E0234Z Introduction of Serum, Toxoid and Vaccine into Muscle, Percutaneous Approach (ICD-10-PCS; 2021-02-02)
DX: S91.312A Laceration without foreign body, left foot, initial encounter (principal); E11.628 Type 2 diabetes mellitus with other skin complications; W25.XXXA Contact with sharp glass, initial encounter; Y93.01 Activity, walking, marching and hiking; Y92.89 Other specified places as the place of occurrence of the external cause; E78.5 Hyperlipidemia, unspecified; N40.0 Benign prostatic hyperplasia without lower urinary tract symptoms; Z89.429 Acquired absence of other toe(s), unspecified side; Z79.82 Long term (current) use of aspirin; Z79.84 Long term (current) use of oral hypoglycemic drugs; Z79.4 Long term (current) use of insulin; D64.9 Anemia, unspecified; E11.22 Type 2 diabetes mellitus with diabetic chronic kidney disease; I12.9 Hypertensive chronic kidney disease with stage 1 through stage 4 chronic kidney disease, or unspecified chronic kidney disease; N18.9 Chronic kidney disease, unspecified; G62.9 Polyneuropathy, unspecified; E11.65 Type 2 diabetes mellitus with hyperglycemia; E66.01 Morbid (severe) obesity due to excess calories; Z68.39 Body mass index [BMI] 39.0-39.9, adult; K21.9 Gastro-esophageal reflux disease without esophagitis
CPT/HCPCS: 12002-25; 36415; 73630-TC-LT; 80048; 80053; 82962; 85025; 85610; 87081; 90471; 90715; 93005; 93010; 96365; 96366; 96372; 96375; 99285-25; C9803; G0378; U0003; U0005

== ENCOUNTER 2024-12-29 11:37 | Inpatient (IN) | payer OTHER ==
[2024-12-29 13:06] LABS: ABSOLUTE IMMATURE GRANULOCYTES 0.04 x10^3/uL (0.0-0.031); BASOPHILS # 0.06 x10^3/uL (0.01-0.08); EOSINOPHIL % 0.2 % (0.8-7.0); EOSINOPHILS # 0.02 x10^3/uL (0.04-0.54); HEMATOCRIT 37.2 % (40.1-51.0); HEMOGLOBIN 11.5 g/dL (13.7-17.5); MCHC 30.9 g/dl (32.3-36.5); MEAN CELL VOLUME 80.9 fl (79.0-92.2); MONOCYTE # 0.36 x10^3/uL (0.30-0.82); MONOCYTE % 3.8 % (5.3-12.2); PLATELET COUNT 524 x10^3/uL (163-337)
[2024-12-29 13:37] LABS: POTASSIUM 4.6 mmol/L (3.5-5.1)
[2024-12-29 13:38] LABS: ALBUMIN 2.9 g/dl (3.4-5.0); BLOOD UREA NITROGEN 19.1 mg/dL (7-18); CALCIUM 9.7 mg/dL (8.5-10.1)
[2024-12-29 13:41] LABS: CREATININE 0.7 mg/dL (0.55-1.3)
[2024-12-29 13:43] LABS: BILIRUBIN,TOTAL 0.3 mg/dL (0.2-1); TOT PROT 7.3 g/dl (6.4-8.2)
[2024-12-29 14:09] LABS: ERYTHROCYTE SEDIMENTATION RATE 102 mm/hr (0-20)
[2024-12-29 18:27] VITALS: BMI 33.0
[2024-12-29] MEDS: INSULIN ASPART SLIDING SCALE (NOVOLOG) 1 VIAL SQ SCH (22:11)
[2024-12-29] MEDS: HEPARIN NA (PORCINE) 5,000 UNITS/ML 1ML VIAL SQ SCH (22:11)
[2024-12-29] MEDS: ATORVASTATIN CA 20 MG TABLET (FP) PO SCH (22:12)
[2024-12-29] MEDS: CARVEDILOL 6.25 MG TABLET (FP) PO SCH (22:21)
[2024-12-30 00:34] LABS: HIV INTERPRETATION NEGATIVE (NEGATIVE)
[2024-12-30 00:35] LABS: HCV DIAGNOSTIC IN-HOUSE W/RFLX NON-REACTIVE (NONREACTIVE)
[2024-12-30] MEDS: CARVEDILOL PO SCH (02:24)
[2024-12-30] MEDS: metFORMIN HCL 500 MG TABLET (FP) PO SCH (07:37)
[2024-12-30 08:07] LABS: ABSOLUTE IMMATURE GRANULOCYTES 0.04 x10^3/uL (0.0-0.031); BASOPHILS # 0.04 x10^3/uL (0.01-0.08); HEMATOCRIT 36.7 % (40.1-51.0); HEMOGLOBIN 11.4 g/dL (13.7-17.5); MCHC 31.1 g/dl (32.3-36.5); MEAN CELL VOLUME 79.8 fl (79.0-92.2); MEAN PLT VOLUME 9.3 fl (9.4-12.4); MONOCYTE # 0.58 x10^3/uL (0.30-0.82); MONOCYTE % 6.2 % (5.3-12.2); PLATELET COUNT 553 x10^3/uL (163-337); RDW 13.8 % (12.2-16.4)
[2024-12-30 08:26] LABS: POTASSIUM 4.5 mmol/L (3.5-5.1)
[2024-12-30 08:29] LABS: ALBUMIN 2.8 g/dl (3.4-5.0); BLOOD UREA NITROGEN 13.5 mg/dL (7-18); CALCIUM 9.4 mg/dL (8.5-10.1)
[2024-12-30 08:32] LABS: CREATININE 0.6 mg/dL (0.55-1.3)
[2024-12-30 08:33] LABS: BILIRUBIN,TOTAL 0.5 mg/dL (0.2-1); TOT PROT 6.8 g/dl (6.4-8.2)
[2024-12-30] MEDS: EZETIMIBE 10 MG TABLET (FP) PO SCH (09:54)
[2024-12-30] MEDS: LOSARTAN POTASSIUM 50 MG TABLET PO SCH (09:54)
[2024-12-30] MEDS: PANTOPRAZOLE 40 MG TABLET PO SCH (09:55)
[2024-12-30] MEDS: TAMSULOSIN HCL 0.4 MG CAP PO SCH (09:55)
[2024-12-30] MEDS: PIPERACILLIN/TAZOB 3.375 GM 3.375 GM in DEXTROSE 5%-WATER - 50 ML IVPB SCH (11:21)
[2024-12-31 07:55] LABS: ABSOLUTE IMMATURE GRANULOCYTES 0.03 x10^3/uL (0.0-0.031); BASOPHILS # 0.04 x10^3/uL (0.01-0.08); EOSINOPHIL % 0.1 % (0.8-7.0); EOSINOPHILS # 0.01 x10^3/uL (0.04-0.54); HEMATOCRIT 36.7 % (40.1-51.0); HEMOGLOBIN 11.5 g/dL (13.7-17.5); MCHC 31.3 g/dl (32.3-36.5); MEAN CELL VOLUME 79.6 fl (79.0-92.2); MEAN PLT VOLUME 9.3 fl (9.4-12.4); MONOCYTE # 0.53 x10^3/uL (0.30-0.82); MONOCYTE % 7.4 % (5.3-12.2); PLATELET COUNT 516 x10^3/uL (163-337); RDW 13.8 % (12.2-16.4)
[2024-12-31 08:15] LABS: POTASSIUM 4.1 mmol/L (3.5-5.1)
[2024-12-31 08:26] LABS: ALBUMIN 2.7 g/dl (3.4-5.0); CALCIUM 9.6 mg/dL (8.5-10.1)
[2024-12-31 08:27] LABS: BLOOD UREA NITROGEN 14.5 mg/dL (7-18)
[2024-12-31 08:30] LABS: CREATININE 0.7 mg/dL (0.55-1.3)
[2024-12-31 08:31] LABS: BILIRUBIN,TOTAL 0.6 mg/dL (0.2-1); TOT PROT 6.7 g/dl (6.4-8.2)
[2024-12-31] MEDS: LOSARTAN POTASSIUM 25 MG TABLET PO SCH (09:35)
[2024-12-31] MEDS: ACETAMINOPHEN 1000 MG/100 ML BAG IVPB PRN (09:47)
[2024-12-31] MEDS: ACETAMINOPHEN 500 MG TABLET (FP) PO PRN (23:43)
[2025-01-02 10:19] VITALS: BP 136/82; PULSE 83; RESP 16; TEMP 98.2
== END 2025-01-02 11:27 | disposition home health service (06) | DRG 638 ==
LOC: JER 11:37 → JERBED 14:21 → OBSVTOIN 16:00 → J7W 17:35
PROVIDERS: ADMIT Internal Medicine; ATTEND Internal Medicine
PROC: 02HV33Z Insertion of Infusion Device into Superior Vena Cava, Percutaneous Approach (ICD-10-PCS; principal; 2025-01-01)
PROC: B518ZZA Fluoroscopy of Superior Vena Cava, Guidance (ICD-10-PCS; 2025-01-01)
DX: E11.69 Type 2 diabetes mellitus with other specified complication (principal); I13.0 Hypertensive heart and chronic kidney disease with heart failure and stage 1 through stage 4 chronic kidney disease, or unspecified chronic kidney disease; M86.8X8 Other osteomyelitis, other site; I50.32 Chronic diastolic (congestive) heart failure; L97.518 Non-pressure chronic ulcer of other part of right foot with other specified severity; B95.2 Enterococcus as the cause of diseases classified elsewhere; E11.42 Type 2 diabetes mellitus with diabetic polyneuropathy; E78.5 Hyperlipidemia, unspecified; L03.116 Cellulitis of left lower limb; N40.0 Benign prostatic hyperplasia without lower urinary tract symptoms; E11.22 Type 2 diabetes mellitus with diabetic chronic kidney disease; N18.9 Chronic kidney disease, unspecified; E11.621 Type 2 diabetes mellitus with foot ulcer; Z89.422 Acquired absence of other left toe(s)
CPT/HCPCS: 11044; 36415; 36569; 73630-TC-LT; 73630-TC-RT-FY; 73718-TC-RT; 80053; 82962; 83036; 85025; 85651; 86140; 86803; 87070; 87075; 87076; 87186; 87389; 88307-TC; 88311-TC; 93005; 93010; 93971-TC; 99285-25; A6260; G0378; J0131; J1644

== ENCOUNTER 2025-01-25 13:00 | Inpatient (IN) | payer OTHER ==
[2025-01-25 14:53] LABS: HEMOGLOBIN 12.7 g/dL (13.7-17.5); MEAN PLT VOLUME 9.6 fl (9.4-12.4); PLATELET COUNT 308 x10^3/uL (163-337); RDW 16.4 % (12.2-16.4)
[2025-01-25 14:56] LABS: INR 1.02 (0.83-1.09); PROTHROMBIN TIME (PATIENT) 11.1 SEC (9.7-13.0)
[2025-01-25 14:59] LABS: ACTIVATED PTT 25.5 SECONDS (25.2-36.5)
[2025-01-25 15:14] LABS: CHLORIDE 107 mmol/L (98-107); POTASSIUM 5.8 mmol/L (3.5-5.1); SODIUM 139 mmol/L (136-145)
[2025-01-25 15:17] LABS: CALCIUM 9.3 mg/dL (8.5-10.1)
[2025-01-25 15:18] LABS: ALBUMIN 3.3 g/dl (3.4-5.0); ANION GAP 6 mmol/L (4-13); BLOOD UREA NITROGEN 17.1 mg/dL (7-18); CO2 27 mmol/L (21-32); GLUCOSE,RANDOM 137 mg/dL (74-106)
[2025-01-25 15:21] LABS: CREATININE 0.8 mg/dL (0.55-1.3); SGOT/AST 42 U/L (15-37); SGPT/ALT 23 U/L (13-61)
[2025-01-25 15:22] LABS: BILIRUBIN,TOTAL 0.9 mg/dL (0.2-1); LDL CHOLESTEROL (ONLY SJRH) 77 mg/dL (5-100); TOT PROT 7.2 g/dl (6.4-8.2)
[2025-01-25 15:23] LABS: ALK PHOS 75 U/L (45-117); CHOLESTEROL 134 mg/dL (50-200)
[2025-01-25 15:24] LABS: HDL CHOLESTEROL 47 mg/dL (40-60)
[2025-01-25 16:11] LABS: PH,URINE 6.5 (5.0-8.0); URINE APPEARANCE CLEAR; URINE BILIRUBIN NEGATIVE (NEGATIVE); URINE COLOR YELLOW; URINE GLUCOSE (UA) 3+ (NEGATIVE); URINE KETONE NEGATIVE (NEGATIVE); URINE LEUK ESTERASE NEGATIVE (NEGATIVE); URINE NITRITE NEGATIVE (NEGATIVE); URINE PROTEIN NEGATIVE (NEGATIVE); URINE UROBILINOGEN 0.2 mg/dL (0.2-1.0)
[2025-01-25 17:38] LABS: CALCIUM 9.2 mg/dL (8.5-10.1)
[2025-01-25 17:42] LABS: CREATININE 0.7 mg/dL (0.55-1.3)
[2025-01-25 23:38] VITALS: BMI 32.7
[2025-01-26 07:56] LABS: ABSOLUTE IMMATURE GRANULOCYTES 0.02 x10^3/uL (0.0-0.031); BASOPHILS # 0.06 x10^3/uL (0.01-0.08); EOSINOPHIL % 6.6 % (0.8-7.0); EOSINOPHILS # 0.48 x10^3/uL (0.04-0.54); HEMATOCRIT 39.3 % (40.1-51.0); HEMOGLOBIN 12.2 g/dL (13.7-17.5); MEAN CELL VOLUME 80.9 fl (79.0-92.2); MEAN PLT VOLUME 9.4 fl (9.4-12.4); MONOCYTE # 0.49 x10^3/uL (0.30-0.82); MONOCYTE % 6.8 % (5.3-12.2); PLATELET COUNT 328 x10^3/uL (163-337); RDW 16.5 % (12.2-16.4)
[2025-01-26] MEDS: LOSARTAN POTASSIUM 25 MG TABLET PO SCH (09:39)
[2025-01-26] MEDS: FINASTERIDE 5 MG TABLET (FP) PO SCH (09:39)
[2025-01-26] MEDS: EZETIMIBE 10 MG TABLET (FP) PO SCH (09:39)
[2025-01-26] MEDS: PANTOPRAZOLE 40 MG TABLET PO SCH (09:39)
[2025-01-26] MEDS: TAMSULOSIN HCL 0.4 MG CAP PO SCH (09:40)
[2025-01-26 10:09] LABS: BLOOD UREA NITROGEN 18.3 mg/dL (7-18); CALCIUM 9.1 mg/dL (8.5-10.1); CREATININE 0.7 mg/dL (0.55-1.3); POTASSIUM 4.1 mmol/L (3.5-5.1)
[2025-01-26] MEDS: metFORMIN HCL 500 MG TABLET (FP) PO SCH (17:05)
[2025-01-26] MEDS: INSULIN ASPART SLIDING SCALE (NOVOLOG) 1 VIAL SQ SCH (17:05)
[2025-01-26] MEDS: CLOPIDOGREL BISULFATE 75 MG TABLET (FP) PO SCH (18:03)
[2025-01-26] MEDS: ASPIRIN 81 MG CHEWABLE TABLETS PO SCH (18:03)
[2025-01-26] MEDS: ATORVASTATIN CA 40 MG TABLET (FP) PO SCH (21:50)
[2025-01-26] MEDS ORDERED: ATORVASTATIN CA 20 MG TABLET (FP) PO SCH (22:00)
[2025-01-27 07:39] LABS: POTASSIUM 4.2 mmol/L (3.5-5.1)
[2025-01-27 07:41] LABS: ABSOLUTE IMMATURE GRANULOCYTES 0.02 x10^3/uL (0.0-0.031); BASOPHILS # 0.05 x10^3/uL (0.01-0.08); EOSINOPHIL % 2.4 % (0.8-7.0); EOSINOPHILS # 0.17 x10^3/uL (0.04-0.54); HEMATOCRIT 38.4 % (40.1-51.0); HEMOGLOBIN 11.9 g/dL (13.7-17.5); MEAN CELL VOLUME 80.8 fl (79.0-92.2); MEAN PLT VOLUME 10.1 fl (9.4-12.4); MONOCYTE # 0.51 x10^3/uL (0.30-0.82); MONOCYTE % 7.1 % (5.3-12.2); PLATELET COUNT 333 x10^3/uL (163-337); RDW 16.5 % (12.2-16.4)
[2025-01-27 07:43] LABS: BLOOD UREA NITROGEN 18.4 mg/dL (7-18)
[2025-01-27 07:44] LABS: ALBUMIN 3.2 g/dl (3.4-5.0)
[2025-01-27 07:47] LABS: CREATININE 0.7 mg/dL (0.55-1.3)
[2025-01-27 07:48] LABS: BILIRUBIN,TOTAL 0.8 mg/dL (0.2-1); TOT PROT 6.6 g/dl (6.4-8.2)
[2025-01-28] MEDS: EMPAGLIFLOZIN (JARDIANCE) 10 MG TABLET PO SCH (13:30)
[2025-01-29] MEDS: EMPAGLIFLOZIN (JARDIANCE) 10 MG TABLET PO SCH (08:44)
[2025-01-29 10:00] VITALS: BP 118/67; PULSE 92; RESP 18; TEMP 98.8
== END 2025-01-29 15:25 | disposition home health service (06) | DRG 65 ==
LOC: JER 13:00 → JERBED 19:22 → J4W 22:44
PROVIDERS: ADMIT Internal Medicine; ATTEND Internal Medicine
DX: I63.89 Other cerebral infarction (principal); G81.91 Hemiplegia, unspecified affecting right dominant side; I13.0 Hypertensive heart and chronic kidney disease with heart failure and stage 1 through stage 4 chronic kidney disease, or unspecified chronic kidney disease; E11.40 Type 2 diabetes mellitus with diabetic neuropathy, unspecified; E78.5 Hyperlipidemia, unspecified; R29.810 Facial weakness; D64.9 Anemia, unspecified; N40.0 Benign prostatic hyperplasia without lower urinary tract symptoms; E11.22 Type 2 diabetes mellitus with diabetic chronic kidney disease; N18.9 Chronic kidney disease, unspecified; I50.9 Heart failure, unspecified; R29.710 NIHSS score 10; R47.1 Dysarthria and anarthria; R26.81 Unsteadiness on feet; E11.621 Type 2 diabetes mellitus with foot ulcer; L97.529 Non-pressure chronic ulcer of other part of left foot with unspecified severity; L97.519 Non-pressure chronic ulcer of other part of right foot with unspecified severity; E66.9 Obesity, unspecified; Z68.32 Body mass index [BMI] 32.0-32.9, adult
CPT/HCPCS: 36415; 70450-TC; 70551-TC; 71045-TC-FY; 80048; 80053; 80061; 81003; 82550; 82553; 82962; 83036; 83880; 84443; 84484; 85025; 85610; 85730; 87086; 93005; 93010; 93306-TC; 93880-TC; 97116-GP; 97162-GP; 99285-25

== ENCOUNTER 2025-04-10 10:49 | Day surgery (SDC) | payer OTHER ==
[2025-04-10 11:41] VITALS: PULSE 95; RESP 18; TEMP 98.8
[2025-04-10 13:35] VITALS: BP 157/92
== END 2025-04-10 12:30 | disposition home or self-care (01) ==
LOC: FINFUSION 10:49 → FM/S 10:50 → FINFUSION 12:30
PROVIDERS: ATTEND Internal Medicine Infectious Disease
DX: M86.8X7 Other osteomyelitis, ankle and foot (principal); E11.621 Type 2 diabetes mellitus with foot ulcer; L03.032 Cellulitis of left toe; Z89.412 Acquired absence of left great toe
CPT/HCPCS: 96365; J0878

== ENCOUNTER 2025-04-11 10:41 | Day surgery (SDC) | payer OTHER ==
[2025-04-11 13:27] VITALS: BP 170/81; PULSE 93; RESP 18; TEMP 98.2
== END 2025-04-11 13:29 | disposition home or self-care (01) ==
LOC: FINFUSION 10:41 → FM/S 10:41 → FINFUSION 13:29
PROVIDERS: ATTEND Internal Medicine Infectious Disease
DX: M86.8X7 Other osteomyelitis, ankle and foot (principal); E11.621 Type 2 diabetes mellitus with foot ulcer; L03.032 Cellulitis of left toe; Z89.412 Acquired absence of left great toe
CPT/HCPCS: 96365; J0878